=== PATIENT | male | born 1950 | race Caucasian/White ===

== ENCOUNTER → 2017-02-27 | Outpatient (CLI) | payer MEDICARE ==
--- NOTE | 2017-02-27 15:31 | Diagnostic Imaging Report ---
EXAMINATION: Right lower extremity duplex venous ultrasound. TECHNIQUE: DVT protocol. Multiple sonographic images with color Doppler and waveform interrogation were performed of the right lower extremity veins with compression and augmentation maneuvers. INDICATION: Right leg pain and swelling. FINDINGS: The right lower extremity veins from the groin to below the knee veins were examined with normal color-flow, compressibility and normal waveform demonstrated. The great saphenous vein is patent. There is a Rosa's cyst seen measuring 8.8 x 1.1 x 3.3 cm in the right popliteal fossa with suggestion of internal debris. IMPRESSION: No evidence of DVT in the right lower extremity. Rosa's cyst. Dictated by: Dictated on workstation # [id number]
== END ==
LOC: RAD 14:45
PROVIDERS: ATTEND Nurse Practitioner Family
DX: M71.21 Synovial cyst of popliteal space [Baker], right knee (principal)

== ENCOUNTER → 2017-03-13 | Outpatient (CLI) | payer OTHER, MEDICARE ==
--- NOTE | 2017-03-13 20:29 | Diagnostic Imaging Report ---
EXAMINATION: Three views of the right knee. INDICATION: Medial right knee pain. FINDINGS: There is mild joint space narrowing medially. Laterally and in the patellofemoral compartment, the joint space appears to be preserved. Minimal osteophytes at the patellofemoral compartment and medially and along the tibial spine are noted. No suprapatellar effusion is evident. There is ossification at the quadriceps insertion likely related to old injury or tendinosis. No fracture, dislocation, or radiopaque foreign body. IMPRESSION: Mild degenerative changes. Dictated by: Dictated on workstation # [id number]
== END ==
LOC: RAD 11:13
PROVIDERS: ATTEND Nurse Practitioner Family
DX: M17.11 Unilateral primary osteoarthritis, right knee (principal)
CPT/HCPCS: 73562

== ENCOUNTER → 2019-06-20 | Outpatient (CLI) | payer MEDICARE, OTHER ==
--- NOTE | 2019-06-20 13:25 | Diagnostic Imaging Report ---
PROCEDURE: US Scrotum. TECHNIQUE: Multiple real-time grayscale images were obtained over the scrotum in various projections bilaterally. INDICATION: Scrotal swelling. FINDINGS: Right testicle measures 3.9 x 1.4 x 2.3 cm and the left testicle measures 4 x 1.9 x 2.3 cm. Both testicles demonstrate homogeneous echogenicity and normal blood flow. The right epididymis is somewhat heterogeneous in appearance. Left epididymis is slightly hypervascular. Possibility of some mild epididymitis cannot be excluded. There is a small left hydrocele. There is a right varicocele. There is no left varicocele. There is some enlargement of the inguinal canal on the left with Valsalva, presumably reflecting some herniation of intraperitoneal fat. IMPRESSION: 1. Questionable mild left epididymitis. 2. Enlargement of left inguinal canal with Valsalva, suggesting some herniation of intraperitoneal fat. 3. Small left hydrocele and a right varicocele. Dictated by: Dictated on workstation # [id number]
== END ==
LOC: RAD 11:13
PROVIDERS: ATTEND Nurse Practitioner Family
DX: N43.3 Hydrocele, unspecified (principal); I86.1 Scrotal varices
CPT/HCPCS: 76870

== ENCOUNTER 2019-10-14 05:48 | Outpatient (RCR) | payer MEDICARE, OTHER ==
[~2019-10-14] VITALS: Ht 170 cm; Wt 73.6 kg
[~2019-10-14 05:48] MED LIST: ALLO100T PO; CART1TAB5 PO; IBUP-2185 PO; LISI-552 PO
== END 2019-10-14 14:21 | disposition home or self-care (01) ==
LOC: PREOP 05:48
PROVIDERS: ATTEND Surgery
DX: Z01.812 Encounter for preprocedural laboratory examination (principal); K40.90 Unilateral inguinal hernia, without obstruction or gangrene, not specified as recurrent; K42.9 Umbilical hernia without obstruction or gangrene; Z20.828 Contact with and (suspected) exposure to other viral communicable diseases
CPT/HCPCS: 87635

== ENCOUNTER 2019-10-17 09:35 | Day surgery (SDC) | payer MEDICARE, OTHER ==
--- NOTE | 2019-10-15 15:06 | HISTORY AND PHYSICAL ---
DATE OF SERVICE: DATE OF ADMISSION: 10/17/2019 PRIMARY CARE PHYSICIAN: Dr. Sylvie Byren. HISTORY OF PRESENT ILLNESS: The patient is a 69-year-old male, who has had bilateral inguinal hernias as well as umbilical hernia when we first examined him in 01/2019. At that time, he was working and could not get time off. At this time, he continues to work a job that does require heavy lifting and exertion; however, states that he will allocate 6 weeks off. Upon examination again, there is a slightly larger left inguinal hernia, which is reducible; however, tender to palpation. There is also a small right inguinal hernia and small umbilical hernia. He is otherwise eating well and having normal bowel movements. PAST MEDICAL HISTORY: Hypertension, gout, degenerative joint disease. PAST SURGICAL HISTORY: Cyst removal back . ALLERGIES: SULFA, PENICILLIN. MEDICATIONS: Lisinopril 20 mg daily, allopurinol 100 mg daily. SOCIAL HISTORY: Previous smoker, 20 pack years, quit 89. He does drink 2 mixed drinks daily. FAMILY HISTORY: Paternal grandfather, myocardial infarction. VITAL SIGNS: Blood pressure 111/70, current weight of 170 pounds at 5 feet 7 inches. REVIEW OF SYSTEMS: Well-nourished male, in no acute distress. He is not experiencing any shortness of breath or difficulty breathing. No chest pain, palpitations or diaphoresis. No nausea, vomiting, no diarrhea or constipation. No fever, chills, no recent inadvertent weight loss. All other review of systems negative. PHYSICAL EXAMINATION: CHEST: Clear. Good breath sounds bilaterally. HEART: Regular, no murmurs. EXTREMITIES: No lower extremity edema, negative Homans sign. NECK: No cervical lymphadenopathy. ABDOMEN: Soft, nontender, nondistended. There is reducible; however, symptomatic bilateral inguinal hernia as well as umbilical hernia. SKIN: Warm, dry. ASSESSMENT AND PLAN: A 69-year-old male with bilateral symptomatic inguinal hernias as well as an umbilical hernia. The natural history of hernias were explained to the patient as well as the risks and benefits of surgery. He states that he can now allocate adequate time off of work and would like to proceed with a laparoscopic bilateral inguinal hernia repair as well as an umbilical hernia repair with mesh. Job ID: [id number] DocumentID: [id number] Dictated Date: 10/08/2019 17:05:07 Building Principal Date: 10/08/2019 17:16:43 Dictated By: KARRI BRIDGES MD
[~2019-10-17] VITALS: Ht 170 cm; Wt 73.6 kg
[2019-10-17] VITALS (10 sets, daily range): BP systolic 113–137; BP diastolic 63–90
[2019-10-17] MEDS ORDERED: BUP/EPI 0.5% 1:200,000 (SENSORCAINE) 30 ML VIAL ONE (09:38)
[2019-10-17] MEDS ORDERED: CLINDAMYCIN 600 MG/50 ML IVPB 50 ML IV ONE (09:45)
--- NOTE | 2019-10-17 09:55 | Progress Note-Pre Operative ---
Pre-Operative Progress Note H&P Reviewed The H&P was reviewed, patient examined and no changes noted. Date Seen by Provider: Oct 17, 2019 Time Seen by Provider: 09:55 Date H&P Reviewed: Oct 17, 2019 Time H&P Reviewed: 09:50 Pre-Operative Diagnosis: Symptomatic Bilateral inguinal and umbilical hernia LYNDSEY MCCORMACK APRN Oct 17, 2019 09:55
[2019-10-17] MEDS ORDERED: DEXAMETHASONE 10 MG/ML (DECADRON) 1 ML VIAL ONE (09:58)
[2019-10-17] MEDS ORDERED: HYDR-4227 PO (09:58)
[2019-10-17] MEDS ORDERED: ROCURONIUM 10 MG/ML 5 ML SYRINGE IV ONE (09:58)
[2019-10-17] MEDS ORDERED: ONDANSETRON 4 MG/2 ML (SDV) Z0FRAN ONE (09:58)
[2019-10-17] MEDS ORDERED: proPOfol 200 MG/20 ML (DIPRIVAN) VIAL IV ONE (09:58)
[2019-10-17] MEDS ORDERED: LIDOCAINE PF 2% 5 ML (XYLOCAINE) VIAL ONE (09:58)
[2019-10-17] MEDS ORDERED: fentaNYL INJECTION 100 MCG/2 ML AMP ONE (09:58)
[2019-10-17] MEDS ORDERED: MIDAZOLAM 2 MG/2 ML (VERSED) VIAL ONE (09:59)
--- NOTE | 2019-10-17 09:59 | Discharge Inst-Surgical ---
D/C Lap Instructions-KIDO Reconcile Patient Problems Problems Reviewed?: Yes New, Converted, or Re-Newed RX: RX on Chart Follow Up Appt in 2 weeks Activity as tolerated No driving for 24 hours No driving while on pain medications Incentive Spirometry use every 2 hours while awake Regular Diet Symptoms to Report: Fever over 101 degree F, Nausea/Vomiting Infection Signs and Symptoms to report: Increased redness, Foul odor of wound, Increased drainage Bathing instructions: May shower Operative Area Clean/Dry; Keep incision clean/dry If any problems/questions: Contact your physician or go to Emergency Room LYNDSEY MCCORMACK APRN Oct 17, 2019 09:59
[2019-10-17] MEDS ORDERED: GLYCOPYRROLATE 0.2 MG/ML (ROBINUL) 2 ML VIAL ONE (10:00)
[2019-10-17] MEDS ORDERED: ONDANSETRON 4 MG/2 ML (SDV) Z0FRAN IVP PRN ×2 (10:00→12:30)
[2019-10-17] MEDS ORDERED: morphine INJ 10 MG/ML 1ML (SYR OR VIAL) IVP PRN (10:00)
[2019-10-17] MEDS ORDERED: HYDROcodone/APAP 5 MG/325 MG (LORTAB) TAB PO ONE (10:00)
[2019-10-17] MEDS ORDERED: ACETAMINOPHEN 325 MG TABLET PO PRN (10:00)
[2019-10-17] MEDS ORDERED: SEVOFLURANE (ULTANE) 15 ML INHAL SOLN ONE ×2 (10:00→12:13)
[2019-10-17] MEDS ORDERED: NEOSTIGMINE 3 MG/3 ML VIAL ONE (10:00)
[2019-10-17] MEDS: LACTATED RINGERS 1,000 ML IV PRN ×2 (10:07→11:25)
[2019-10-17 10:15] LABS: BASOPHILS % (AUTO) 1 % (0-10); EOSINOPHILS # (AUTO) 0.2 10^3/uL (0.0-0.3); EOSINOPHILS % (AUTO) 3 % (0-10); HEMATOCRIT 44 % (40-54); HEMOGLOBIN 14.6 G/DL (13.3-17.7); LYMPHOCYTES # (AUTO) 2.3 X 10^3 (1.0-4.0); LYMPHOCYTES % (AUTO) 38 % (12-44); MEAN CORPUSCULAR HEMOGLOBIN 32 PG (25-34); MEAN CORPUSCULAR HGB CONC 33 G/DL (32-36); MEAN CORPUSCULAR VOLUME 97 FL (80-99); MEAN PLATELET VOLUME 9.7 FL (7.4-10.4); MONOCYTES # (AUTO) 0.6 X 10^3 (0.0-1.0); MONOCYTES % (AUTO) 10 % (0-12); NEUTROPHILS # (AUTO) 2.9 X 10^3 (1.8-7.8); NEUTROPHILS % (AUTO) 49 % (42-75); PLATELET COUNT 198 10^3/uL (130-400); RED CELL DISTRIBUTION WIDTH 12.9 % (10.0-14.5)
--- OUTSIDE RECORDS SUMMARY | 2019-10-17 10:29 | XMS REPORT | CCD ---
Author Author Renan Byrne D.O. Organization [facility] Address [address] [place] [address] Phone Care Team Providers Care Welder Assistant Name Role Phone Sylvie Byrne D.O., PP Unavailable CCM Unavailable Summary Purpose Interface Exchange Insurance Providers Payer name Policy type / Coverage type Covered constitution party ID Effective Begin Date Effective End Date WPS MEDICARE PART B [place] Medicare Part B [id number] Unknown [employer] Medicare Part B [id number] Unknown Family History Family History data not found Social History Social History Element Codes Description Effective Dates Tobacco history SNOMED CT: 780422494 Nonsmoker 12/02/2010 Allergies, Adverse Reactions, Alerts Substance Reaction Codes Entered Date Inactivated Date Status MACROLIDE ANTIBIOTICS rash Unknown 04/19/2010 No Inactive Da te Active PENICILLINS Unknown 09/01/2009 No Inactive Date Active SULFA (SULFONAMIDES) _ Unknown 09/01/2009 No Inactive Wolf e Active * NO KNOWN ENVIRONMENTAL ALLERGIES Unknown 09/01/2009 N o Inactive Date Active * NO KNOWN FOOD ALLERGIES Unknown 09/01/2009 No Inactiv e Date Active Problems Condition Codes Effective Dates Condition Status Enlarged testicle ICD-9: 608.89 ICD-10: N50.89 06/20/2019 Active Polyuria ICD-9: 788.42 ICD-10: R35.8 06/20/2019 Active Acute contact dermatitis ICD-9: 692.9 ICD-10: L25.9 05/17/2019 Active Acute sinusitis ICD-9: 461.9 ICD-10: J01.90 05/17/2019 Active Abscess of chest wall ICD-9: 682.2 ICD-10: L02.213 01/23/2019 Active Acute gastritis without bleeding ICD-9: 535.00 ICD-10: K29.00 01/18/2018 Active Essential (primary) hypertension ICD-9: 401.9 ICD-10: I10 12/11/2013 Active Hyperlipidemia, unspecified ICD-9: 272.4 ICD-10: E78.5 12/11/2013 Active Idiopathic gout, unspecified site ICD-9: 274.9 ICD-10: M10.00 03/29/2017 Active Sebaceous cyst ICD-9: 706.2 ICD-10: L72.3 02/27/2017 Active Weakness ICD-9: 780.79 ICD-10: R53.1 03/29/2017 Active Contact with and (suspected) exposure to other viral c ommunicable diseases ICD- 9: V01.79 ICD-10: Z20.828 03/15/2017 Active Pain in right knee ICD-9: 719.46 ICD-10: M25.561 03/13/2017 Active Pain in right leg ICD-9: 729.5 ICD-10: M79.604 02/27/2017 Active Local infection of the skin and subcutaneous tissue, u nspecified ICD-9: 686.9 ICD-10: L08.9 03/30/2015 Active Colon polyps ICD-9: 211.3 05/02/2013 Active HEMATURIA NOS ICD-9: 599.70 01/06/2015 Active History of chest pain ICD-9: V13.89 01/06/2015 Active Right flank pain ICD-9: 789.09 01/06/2015 Active COUGH ICD-9: 786.2 04/15/2014 Active Rectal itching ICD-9: 698.0 04/15/2014 Active GOUT ICD-9: 274.9 12/11/2013 Active HYPERLIPIDEMIA NEC/NOS ICD-9: 272.4 12/11/2013 Active HYPERTENSION ICD-9: 401.9 12/11/2013 Active ROUTINE MEDICAL EXAM ICD-9: V70.0 12/11/2013 Active Shingles ICD-9: 053.9 12/10/2013 Active Stress reaction ICD-9: 308.9 05/02/2013 Active URINARY TRACT INFECTION ICD-9: 599.0 01/02/2013 Active CELLULITIS OF TRUNK ICD-9: 682.2 10/10/2011 Active SPRAIN SHOULDER/ARM ICD-9: 840.9 10/10/2011 Active DIARRHEA ICD-9: 787.91 08/12/2011 Active Abnormal results of thyroid function studies ICD-9: 794.5 Active ENCNTR LONG-RX USE NEC ICD-9: V58.69 07/28/2011 Active Positive antinuclear antibody ICD-9: 795.79 07/28/2011 Ac tive Joint pain ICD-9: 719.40 05/24/2011 Active Rash ICD-9: 782.1 05/24/2011 Active SINUSITIS, ACUTE ICD-9: 461.9 04/15/2011 Active Clavicle fracture ICD-9: 810.00 01/13/2011 Active Clavicle pain ICD-9: 719.41 12/23/2010 Active Arm pain ICD-9: 729.5 12/15/2010 Active Neck pain ICD-9: 723.1 12/15/2010 Active SPASM OF MUSCLE ICD-9: 728.85 12/15/2010 Active MALAISE AND FATIGUE ICD-9: 780.79 12/02/2010 Active Allergic reaction caused by a drug ICD-9: 995.27 04/19/2010 Active DYSPHAGIA NEC ICD-9: 787.29 04/14/2010 Active GERD ICD-9: 530.81 04/14/2010 Active PHARYNGITIS, ACUTE ICD-9: 462 04/14/2010 Active Gastroesophageal reflux disease Unknown 09/01/2009 Active Gout Unknown 09/01/2009 Active Hypertension Unknown 09/01/2009 Active HYPOTENSION ICD-9: 458.9 09/01/2009 Active Thoracic back pain ICD-9: 724.1 09/01/2009 Active Medications Medication Codes Instructions Start Date Stop Date Status Fill Instructions hydroxyzine HCl 25 mg tablet RxNorm: 870600 1 Tablet(s) Oral every night at bedtime 06/21/2019 10/19/2019 Active Cipro 500 mg tablet RxNorm: 321640 1 Tablet(s) Oral two times a day 06/20/2019 06/28/2019 Active Cipro 500 mg tablet RxNorm: 975598 1 Tablet(s) Oral two times a day 06/20/2019 06/19/2019 Inactive hydroxyzine HCl 25 mg tablet RxNorm: 733545 1 Tablet(s) Oral Q8 H as needed 06/14/2019 06/14/2019 Inactive Cipro 500 mg tablet RxNorm: 034830 1 Tablet(s) Oral two times a day 06/14/2019 06/19/2019 Inactive Cipro 500 mg tablet RxNorm: 707404 1 Tablet(s) Oral two times a day 06/14/2019 06/13/2019 Inactive hydroxyzine HCl 25 mg tablet RxNorm: 889161 1 Tablet(s) Oral Q8 H as needed 06/14/2019 06/13/2019 Inactive prednisone 20 mg tablet RxNorm: 539027 1 Tablet(s) Oral two latonia es a day 05/31/2019 06/05/2019 Inactive Elimite 5 % topical cream RxNorm: 528577 Application To pical QPM from head to toe 05/17/2019 07/16/2019 Active Medrol (Nicholas) 4 mg tablets in a dose pack RxNorm: 392979 6 Tablet(s) Oral QD --then as directed 05/17/2019 05/23/2019 Inactive Osteo Bi-Flex 250 mg-200 mg tablet RxNorm: 398399 2 Tablet(s) O ral QD 01/23/2019 No Stop Date Active clindamycin HCl 300 mg capsule RxNorm: 930918 2 Capsule (s) Oral three times a day 01/23/2019 01/30/2019 Inactive Flagyl 500 mg tablet RxNorm: 519358 1 Tablet(s) PO BID 10/31/2018 Inactive lisinopril 20 mg tablet RxNorm: 337359 1 Tablet(s) PO QD for bl ood pressure 09/13/2018 12/11/2018 Inactive allopurinol 100 mg tablet RxNorm: 993416 1 Tablet(s) PO QD 09/14/19 19 12/11/2018 Inactive Flagyl 500 mg tablet RxNorm: 251600 1 Tablet(s) PO BID 01/18/2018 Inactive Cipro 250 mg tablet RxNorm: 302097 1 Tablet(s) PO BID 01/18/201801/08 Inactive lisinopril 20 mg tablet RxNorm: 419979 1 Tablet(s) PO QD for bl ood pressure 11/06/2017 02/03/2018 Inactive allopurinol 100 mg tablet RxNorm: 986048 1 Tablet(s) PO QD 11/07/19 18 02/03/2018 Inactive allopurinol 100 mg tablet RxNorm: 250121 1 Tablet(s) PO QD 04/11/19 18 10/07/2017 Inactive lisinopril 20 mg tablet RxNorm: 843096 1 Tablet(s) PO QD for bl ood pressure 04/07/2017 11/05/2017 Inactive prednisone 20 mg tablet RxNorm: 877517 2 Tablet(s) PO QD 03/15/2017 1 05/18/2016 Inactive tramadol 50 mg tablet RxNorm: 651404 1-2 Tablet(s) PO TID as needed 03/13/2017 08/06/2017 Inactive Medrol (Nicholas) 4 mg tablets in a dose pack RxNorm: 379277 Tablet(s) PO As Directed 02/28/2017 08/01/2017 Inactive allopurinol 100 mg tablet RxNorm: 410607 1 Tablet(s) PO QD 04/11/19 17 04/11/2017 Inactive lisinopril 20 mg tablet RxNorm: 839937 1 Tablet(s) PO QD for bl ood pressure 04/11/2016 04/07/2017 Inactive pravastatin 20 mg tablet RxNorm: 198113 1 Tablet(s) PO QD 01/13/2016 02/26/2017 Inactive pravastatin 20 mg tablet RxNorm: 520843 TAKE 1 TABLET DAILY 016 01/13/2016 Inactive pravastatin 40 mg tablet RxNorm: 626187 1 Tablet(s) PO QD 03/31/2015 03/31/2015 Inactive pravastatin 20 mg tablet RxNorm: 127425 1 Tablet(s) PO QD 03/31/2015 06/28/2015 Inactive doxycycline hyclate 100 mg capsule RxNorm: 5329668 1 Capsule(s) PO BID 03/31/2015 04/09/2015 Inactive mupirocin 2 % topical ointment RxNorm: 337508 Apply TOP BID to affected lesions 03/31/2015 08/01/2017 Inactive pravastatin 40 mg tablet RxNorm: 281938 1 Tablet(s) PO QD 01/08/2015 03/30/2015 Inactive lisinopril 20 mg tablet RxNorm: 731710 1 Tablet(s) PO QD for bl ood pressure 01/07/2015 12/31/2015 Inactive allopurinol 100 mg tablet RxNorm: 855397 1 Tablet(s) PO QD 01/08/20 04/10/2016 Inactive ciprofloxacin 500 mg tablet RxNorm: 616737 1 Tablet(s) PO BID 01/0701/13/2015 Inactive doxycycline hyclate 100 mg capsule RxNorm: 7230053 1 Capsule(s) PO BID 04/15/2014 04/24/2014 Inactive fluoxetine 10 mg capsule RxNorm: 398127 1 Capsule(s) PO QAM 014 04/14/2014 Inactive lisinopril 20 mg tablet RxNorm: 655905 1 Tablet(s) PO QD for bl ood pressure 05/02/2013 04/26/2014 Inactive Cipro 500 mg tablet RxNorm: 432405 1 Tablet(s) PO BID 01/02/201312/10 Inactive Cipro 500 mg tablet RxNorm: 210542 1 Tablet(s) PO BID 01/02/201304/2012 Inactive doxycycline hyclate 100 mg Cap RxNorm: 548875 1 Capsule(s) PO BID 0 10/10/2011 10/19/2011 Inactive Culturelle 10 billion cell Cap RxNorm: 262705 1 Capsule(s) PO BID 0 08/12/2011 09/10/2011 Inactive Colcrys 0.6 mg Tab RxNorm: 146146 1 Tablet(s) PO BID 08/04/201111/30 Inactive allopurinol 100 mg Tab RxNorm: 694656 1 Tablet(s) PO BID 07/13/2011 0 08/03/2011 Inactive clotrimazole-betamethasone 1 %-0.05 % Topical Cream RxNorm: 402487 1 Application TOP BID 06/10/2011 06/23/2011 Inactive clotrimazole-betamethasone 1 %-0.05 % Topical Cream RxNorm: 597336 1 Application TOP BID 05/24/2011 06/06/2011 Inactive Colcrys 0.6 mg Tab RxNorm: 509243 1 Tablet(s) PO BID 05/24/201108/02 Inactive cefdinir 300 mg Cap RxNorm: 781353 1 Capsule(s) PO BID 04/15/2011 Inactive Daypro 600 mg Tab RxNorm: 385855 1 Tablet(s) PO BID 12/15/20102010 Inactive for pain Medrol (Nicholas) 4 mg Tabs in a Dose Pack RxNorm: 278921 Tablet(s) PO 0 12/09/2010 12/15/2010 Inactive as directed Colcrys 0.6 mg Tab RxNorm: 332928 1 Tablet(s) PO BID 12/06/201001/04 Inactive lisinopril-hydrochlorothiazide 20 mg-12.5 mg Tab RxNorm: 197 886 1 Tablet(s) PO QAM 12/02/2010 01/30/2011 Inactive ranitidine 150 mg tablet RxNorm: 2726496 1 Tablet(s) PO BID Pt will phone before filing this script. 04/14/2010 05/13/2010 Inactive allopurinol 100 mg Tab RxNorm: 195628 1 Tablet(s) PO BID 09/16/2009 0 11/14/2009 Inactive lisinopril-hydrochlorothiazide 20 mg-12.5 mg Tab RxNorm: 197 886 1 Tablet(s) PO QAM 06/23/2009 08/31/2009 Inactive ibuprofen 200 mg tablet RxNorm: 629741 4 Tablet(s) PO QAM No Start Da te Active Zithromax Z-Nicholas 250 mg Tab RxNorm: 313162 Tablet(s) PO as direc tenzin No Start Date 01/12/2011 Inactive Ultram Oral RxNorm: Oral No Start Date 01/01/2013 Inactive allopurinol 100 mg tablet RxNorm: 486901 1 Tablet(s) PO QD No Start Date 01/06/2015 Inactive pravastatin 40 mg tablet RxNorm: 216762 1 Tablet(s) PO QD No Start Date 01/07/2015 Inactive Naprosyn 500 mg tablet RxNorm: 342792 1 Tablet(s) PO BID No Start D ate 05/01/2013 Inactive azithromycin 250 mg tablet RxNorm: 626468 2 Tablet(s) P O QD take 2 tablets (500 mg) by oral route once daily for 1 day then 1 tablet (250 mg) by oral route once daily for 4 days No Start Date 01/12/2011 Inactive allopurinol 300 mg Tab RxNorm: 494795 1 Tablet(s) PO QD No Start Da te 01/01/2013 Inactive Colcrys 0.6 mg tablet RxNorm: 781683 1 Tablet(s) PO BID No Start Da te 05/01/2013 Inactive Medrol (Nicholas) 4 mg tablets in a dose pack RxNorm: 343369 Tablet(s) PO As Directed No Start Date 02/27/2017 Inactive hydrocodone 5 mg-acetaminophen 325 mg tablet RxNorm: 884674 1 Tablet(s) PO Q4H as needed for pain No Start Date 12/09/2013 Inactive ranitidine 150 mg Tab RxNorm: 7246802 1 Tablet(s) PO BID No Start D ate 04/13/2010 Inactive Allopurinol 100 mg Tab RxNorm: 804968 1 Tablet(s) PO BID No Start D ate 09/15/2009 Inactive coenzyme Q10 200 mg capsule RxNorm: 513874 1 Capsule(s) PO QD No St art Date 03/30/2015 Inactive Mobic 7.5 mg tablet RxNorm: 412208 1 Tablet(s) PO QD No Start Date Inactive Osteo Bi-Flex (5-Loxin) 1,500 mg-400 unit-100 mg tablet RxNo rm: 1 Tablet(s) PO BID No Start Date 03/30/2015 Inactive hydrocodone-acetaminophen 7.5 mg-325 mg Tab RxNorm: 484721 1-2 Tablet(s) PO Q4-6H No Start Date 08/03/2011 Inactive as needed for pa in Neurontin 300 mg capsule RxNorm: 575307 1 Capsule(s) PO QD No Start Date 12/09/2013 Inactive Medrol (Nicholas) 4 mg Tabs in a Dose Pack RxNorm: 563950 Tablet(s) PO N o Start Date 12/08/2010 Inactive as directed Vitamin D2 1,000 unit capsule RxNorm: 426085 1 Capsule(s) PO QD No Start Date 03/30/2015 Inactive Flexeril 10 mg Tab RxNorm: 849259 1 Tablet(s) PO TID No Start Date Inactive for spasm Medication Administered No Medication Administered data Immunizations No Immunization data Results Observation Observation Code Item Item Code Result Date S ervice Location C DIFF MOL 8161214 C Diff Mol Int Negative 11/02/2018 Unk nown C Diff An 03193493 C Diff Analyzer Indeterminate 9 Unknown GFR CALC 0871561 GFR Non Afr Amr >60 mL/min 11/01/2018 Un known GFR CALC 7911374 GFR Afr Amr >60 mL/min 11/01/[address] LDL HDL CHOLESTEROL 46 mg/dL 11/01/[address] LDL [id number] Cholesterol 198 mg/dL 11/01/[address] LDL Triglyceride 104 mg/dL 11/01/[address] LDL LDL Direct 158 mg/dL 11/01/[address] LDL 3612109 NON-HDL Chol 152 mg/dL 11/01/2018 Unkno wn THYROID STIMULATING HORMONE 93276 TSH 1.276 uIU/mL 11/01/2018 Unknown COMPREHENSIVE METABOLIC 64113 AST 22 U/L 2018 Unknown COMPREHENSIVE METABOLIC 43960 ALT 17 U/L 2018 Unknown COMPREHENSIVE METABOLIC 34901 BUN 16 mg/dL 2018 Unknown COMPREHENSIVE METABOLIC 11140 ALBUMIN 4.3 g/dL 2018 Unknown COMPREHENSIVE METABOLIC 68004 CHLORIDE 103 mmol/L 11/01 Unknown COMPREHENSIVE METABOLIC 99912 Bili Total 0.9 mg/dL 11/01 Unknown COMPREHENSIVE METABOLIC 76068 ALK PHOS 62 U/L 2018 Unknown COMPREHENSIVE METABOLIC 69814 SODIUM 138 mmol/L 11/01 Unknown COMPREHENSIVE METABOLIC 32225 CREATININE 0.87 mg/dL 10/09 Unknown COMPREHENSIVE METABOLIC 33323 CALCIUM 9.2 mg/dL 2018 Unknown COMPREHENSIVE METABOLIC 55954 POTASSIUM 4.1 mmol/L 11/01 Unknown COMPREHENSIVE METABOLIC 81832 Total Protein 7.2 g/dL Unknown COMPREHENSIVE METABOLIC 35251 Glucose 81 mg/dL 2018 Unknown COMPREHENSIVE METABOLIC 46988 Bicarbonate 18 mmol/L 10/09 Unknown COMPREHENSIVE METABOLIC 36340 AGAP 17 mmol/L 2018 Unknown COMPLETE BLOOD COUNT [id number] WBC 8.8 10e9/L 11/02/19 19 Unknown COMPLETE BLOOD COUNT [id number] RBC 4.54 10e12/L 2018 Unknown COMPLETE BLOOD COUNT [id number] HEMOGLOBIN 14.4 g/dL 11/02/19 19 Unknown COMPLETE BLOOD COUNT [id number] HEMATOCRIT 44.0 % 11/02/19 19 Unknown COMPLETE BLOOD COUNT [id number] MCV 96.9 fL 9 Unknown COMPLETE BLOOD COUNT [id number] MCH 31.7 pg 9 Unknown COMPLETE BLOOD COUNT 5937925 MCHC 32.7 g/dL 9 Unknown COMPLETE BLOOD COUNT [id number] PLATELET COUNT 239 10e9/L Unknown COMPLETE BLOOD COUNT 9842233 Mean Plt Volume 10.5 fL Unknown COMPLETE BLOOD COUNT [id number] NRBC Absolute 0.00 10e9/L Unknown COMPLETE BLOOD COUNT 3896262 Neut Auto 65.2 % 9 Unknown COMPLETE BLOOD COUNT 5249551 NRBC/100 WBC 0.0 2018 Unknown COMPLETE BLOOD COUNT [id number] Lymph Auto 23.1 % 11/02/19 19 Unknown COMPLETE BLOOD COUNT 5852015 Kendall Auto 9.5 % 9 Unknown COMPLETE BLOOD COUNT 8243069 RDW 12.2 % 9 Unknown COMPLETE BLOOD COUNT [id number] Eos Auto 1.7 % 9 Unknown COMPLETE BLOOD COUNT [id number] Baso Auto 0.3 % 9 Unknown COMPLETE BLOOD COUNT [id number] Neutrophil Abs 5.73 10e9/L Unknown COMPLETE BLOOD COUNT [id number] Imm Gran Auto 0.2 % 11/01 Unknown COMPLETE BLOOD COUNT [id number] Lymphocyte Abs 2.03 10e9/L Unknown COMPLETE BLOOD COUNT [id number] Monocyte Abs 0.84 10e9/L 10/09 Unknown COMPLETE BLOOD COUNT [id number] Eosinophil Abs 0.15 10e9/L Unknown COMPLETE BLOOD COUNT [id number] RDW-SD 43.4 fL 9 Unknown COMPLETE BLOOD COUNT [id number] Basophil Abs 0.03 10e9/L 10/09 Unknown COMPLETE BLOOD COUNT [id number] Imm Gran Abs 0.02 10e9/L 10/09 Unknown COMPREHENSIVE METABOLIC 92881 AST 17 U/L 2016 Unknown COMPREHENSIVE METABOLIC 02069 ALT 16 U/L 2016 Unknown COMPREHENSIVE METABOLIC 06764 BUN 15 mg/dL 2016 Unknown COMPREHENSIVE METABOLIC 15481 ALBUMIN 4.4 g/dL 2016 Unknown COMPREHENSIVE METABOLIC 74574 CHLORIDE 104 mmol/L 03/29 Unknown COMPREHENSIVE METABOLIC 18003 Bili Total 0.5 mg/dL 03/29 Unknown COMPREHENSIVE METABOLIC 54566 ALK PHOS 56 U/L 2016 Unknown COMPREHENSIVE METABOLIC 20838 SODIUM 139 mmol/L 03/29 Unknown COMPREHENSIVE METABOLIC 36934 CREATININE 0.88 mg/dL 03/11 Unknown COMPREHENSIVE METABOLIC 33667 CALCIUM 9.8 mg/dL 2016 Unknown COMPREHENSIVE METABOLIC 05137 POTASSIUM 4.2 mmol/L 03/29 Unknown COMPREHENSIVE METABOLIC 04400 Total Protein 6.8 g/dL Unknown COMPREHENSIVE METABOLIC 54538 Glucose 100 mg/dL 2016 Unknown COMPREHENSIVE METABOLIC 62392 Bicarbonate 30 mmol/L 03/11 Unknown COMPREHENSIVE METABOLIC 18103 AGAP 5 mmol/L 2016 Unknown THYROID STIMULATING HORMONE 74398 TSH 1.077 uIU/mL 03/29/2017 Unknown URIC ACID 65310 URIC ACID 5.2 mg/dL 03/29/2017 Unknown FREE T4 41662 T4 Free 1.04 ng/dL 03/29/2017 Unknown ERYTHROCYTE SEDIMENTATION RATE 73044 Sed Rate 21 mm/hr 03/29/2017 Unknown COMPLETE BLOOD COUNT [id number] WBC 5.9 10e9/L 03/29/20 17 Unknown COMPLETE BLOOD COUNT [id number] RBC 4.52 10e12/L 2016 Unknown COMPLETE BLOOD COUNT [id number] HEMOGLOBIN 14.6 g/dL 03/29/20 17 Unknown COMPLETE BLOOD COUNT 8956875 HEMATOCRIT 44.7 % 03/29/20 17 Unknown COMPLETE BLOOD COUNT 9744227 MCV 98.9 fL 7 Unknown COMPLETE BLOOD COUNT 9984418 MCH 32.3 pg 7 Unknown COMPLETE BLOOD COUNT 1585546 MCHC 32.7 g/dL 7 Unknown COMPLETE BLOOD COUNT [id number] PLATELET COUNT 262 10e9/L Unknown COMPLETE BLOOD COUNT 2381772 Mean Plt Volume 10.1 fL Unknown COMPLETE BLOOD COUNT 5075771 Neut Auto 44.2 % 7 Unknown COMPLETE BLOOD COUNT 8737071 Lymph Auto 41.5 % 03/29/20 17 Unknown COMPLETE BLOOD COUNT 3426349 Kendall Auto 11.2 % 7 Unknown COMPLETE BLOOD COUNT 0988181 RDW 12.3 % 7 Unknown COMPLETE BLOOD COUNT 6404037 Eos Auto 2.6 % 7 Unknown COMPLETE BLOOD COUNT [id number] Baso Auto 0.5 % 7 Unknown COMPLETE BLOOD COUNT 3235825 Neutrophil Abs 2.61 10e9/L Unknown COMPLETE BLOOD COUNT 5910071 Lymphocyte Abs 2.45 10e9/L Unknown COMPLETE BLOOD COUNT [id number] Monocyte Abs 0.66 10e9/L 03/11 Unknown COMPLETE BLOOD COUNT [id number] Eosinophil Abs 0.15 10e9/L Unknown COMPLETE BLOOD COUNT 4580254 RDW-SD 43.7 fL 7 Unknown COMPLETE BLOOD COUNT [id number] Basophil Abs 0.03 10e9/L 03/11 Unknown LIPID GROUP 73972 Cholesterol 248 mg/dL 03/29/2017 Unkno wn LIPID GROUP 40189 Triglyceride 87 mg/dL 03/29/2017 Unkn own [facility] 72824 HDL CHOLESTEROL 49 mg/dL 03/29/2017 U nknown [facility] 40937 Chol/HDL Ratio 5.06 ratio 03/29/2017 U nknown L[facility] 02617 NON-HDL Chol 199 mg/dL 03/29/2017 Unkn own [facility] 27868 LDL Cholesterol 182 mg/dL 03/29/2017 U nknown GFR CALC 4502675 GFR Non Afr Amr >60 mL/min 03/29/2017 Un known GFR CALC 9174324 GFR Afr Amr >60 mL/min 03/29/2017 Unknow n HIV AG/AB 7275874 HIV Ag/Ab Non-Reactive 03/15/2017 Unkno wn VIRAL HEPATITIS PROFILE #2 90780 Hep A IgM Non-Reactive 03/15/2017 Unknown VIRAL HEPATITIS PROFILE #2 26737 Hep B Core IgM Non-Reac tive 03/15/2017 Unknown VIRAL HEPATITIS PROFILE #2 28280 Hepatitis C Ab Non-Reac tive 03/15/2017 Unknown VIRAL HEPATITIS PROFILE #2 95982 Hep Bs Ag Non-Reactive 03/15/2017 Unknown COMPREHENSIVE METABOLIC 34736 AST 23 U/L 2014 Unknown COMPREHENSIVE METABOLIC 07431 ALT 21 IU/L 2014 Unknown COMPREHENSIVE METABOLIC 95762 BUN 13 MG/DL 2014 Unknown COMPREHENSIVE METABOLIC 03723 ALBUMIN 4.3 GM/DL 2014 Unknown COMPREHENSIVE METABOLIC 36797 CHLORIDE 105 MMOL/L 01/07 Unknown COMPREHENSIVE METABOLIC 43277 BILI TOT 0.7 MG/DL 2014 Unknown COMPREHENSIVE METABOLIC 65736 ALK PHOS 51 U/L 2014 Unknown COMPREHENSIVE METABOLIC 93110 SODIUM 139 MMOL/L 01/07 Unknown COMPREHENSIVE METABOLIC 10092 CREATININE 0.85 MG/DL 12/11 Unknown COMPREHENSIVE METABOLIC 11935 CALCIUM 9.5 MG/DL 2014 Unknown COMPREHENSIVE METABOLIC 98928 POTASSIUM 4.4 MMOL/L 01/07 Unknown COMPREHENSIVE METABOLIC 55450 PROT TOT 6.7 GM/DL 2014 Unknown COMPREHENSIVE METABOLIC 80636 Glucose 100 MG/DL 2014 Unknown COMPREHENSIVE METABOLIC 30379 BICARB 27 MMOL/L 2014 Unknown COMPREHENSIVE METABOLIC 21911 ANION GAP 7 MEQ/L 2014 Unknown THYROID STIMULATING HORMONE 90653 TSH 0.900 uIU/ML 01/07/2015 Unknown COMPLETE BLOOD COUNT 7909918 WBC 4.9 10e9/L 01/08/20 15 Unknown COMPLETE BLOOD COUNT 9872561 RBC 4.71 10e12/L 2014 Unknown COMPLETE BLOOD COUNT 4090550 HGB 15.3 g/dL 5 Unknown COMPLETE BLOOD COUNT 6813225 HCT DET 46.1 % 5 Unknown COMPLETE BLOOD COUNT 5735248 MCV 97.9 fL 5 Unknown COMPLETE BLOOD COUNT 9670994 MCH 32.5 pg 5 Unknown COMPLETE BLOOD COUNT 0316951 MCHC 33.2 g/dL 5 Unknown COMPLETE BLOOD COUNT 3307274 PLT 227 10e9/L 01/08/20 15 Unknown COMPLETE BLOOD COUNT 9243751 MPV 10.9 fL 5 Unknown COMPLETE BLOOD COUNT 9833255 VERONIQUE % 53.0 % 5 Unknown COMPLETE BLOOD COUNT 4288148 LY % 35.8 % 5 Unknown COMPLETE BLOOD COUNT 4836967 MON % 8.6 % 5 Unknown COMPLETE BLOOD COUNT 2743394 EOS % 2.2 % 5 Unknown COMPLETE BLOOD COUNT 4592099 BASO % 0.4 % 5 Unknown COMPLETE BLOOD COUNT 2717867 RDW 12.9 % 5 Unknown COMPLETE BLOOD COUNT [id number] ABS VERONIQUE 2.60 10e9/L 015 Unknown COMPLETE BLOOD COUNT 7490761 ABS LYMPH 1.75 10e9/L 015 Unknown COMPLETE BLOOD COUNT [id number] ABS MONO 0.42 10e9/L 015 Unknown COMPLETE BLOOD COUNT [id number] ABS EOS 0.11 10e9/L 015 Unknown COMPLETE BLOOD COUNT 7661447 ABS BASO 0.02 10e9/L 015 Unknown COMPLETE BLOOD COUNT 4885729 RDW-SD 45.7 fL 5 Unknown URIC ACID 18463 URIC ACID 6.7 MG/DL 01/07/2015 Unknown LIPID GROUP 90969 HDL TEST 52 MG/DL 01/07/2015 Unknown [facility] 48795 TRIG 158 MG/DL 01/07/2015 Unknown [facility] 04993 TEST LDL 157 MG/DL 01/07/2015 Unknown [facility] 53076 CHOL 241 MG/DL 01/07/2015 Unknown [facility] 35358 RCHOL/HDL 4.63 RATIO 01/07/2015 Unknow n [facility] 39204 NON-HDL CH 189 MG/DL 01/07/2015 Unknow n GFR CALC 5388777 GFR AA >60 ML/MIN 01/07/2015 Unknown GFR CALC 0476014 GFR NON-AA >60 ML/MIN 01/07/2015 Unknown PSA EQUIMOLAR JONATAN 22312 PSA EQ 2.18 NG/ML 5 Unknown FREE T4 09601 FREE T4 1.04 NG/DL 01/07/2015 Unknown GFR CALC 6860737 GFR AA >60 ML/MIN 12/11/2013 Unknown GFR CALC 3846524 GFR NON-AA >60 ML/MIN 12/11/2013 Unknown LIPID GROUP 52032 HDL TEST 54 MG/DL 12/11/2013 Unknown LIP[facility] GROUP 60517 TRIG 81 MG/DL 12/11/2013 Unknown L[facility] GROUP 10168 TEST LDL 185 MG/DL 12/11/2013 Unknown LIPID GROUP 18024 CHOL 255 MG/DL 12/11/2013 Unknown LIPID GROUP 27499 RCHOL/HDL 4.72 RATIO 12/11/2013 Unknow n LIP[facility] GROUP 67484 NON-HDL CH 201 MG/DL 12/11/2013 Unknow n URIC ACID 87191 URIC ACID 7.1 MG/DL 12/11/2013 Unknown PSA EQUIMOLAR JONATAN 69532 PSA EQ 3.80 NG/ML 4 Unknown COMPLETE BLOOD COUNT 3872823 WBC 5.9 10e9/L 12/12/19 14 Unknown COMPLETE BLOOD COUNT 2723356 RBC 4.40 10e12/L 2013 Unknown COMPLETE BLOOD COUNT 4737171 HGB 14.5 g/dL 4 Unknown COMPLETE BLOOD COUNT 8257108 HCT DET 43.6 % 4 Unknown COMPLETE BLOOD COUNT 2709921 MCV 99.1 fL 4 Unknown COMPLETE BLOOD COUNT 1553887 MCH 33.0 pg 4 Unknown COMPLETE BLOOD COUNT 4041679 MCHC 33.3 g/dL 4 Unknown COMPLETE BLOOD COUNT 5194075 PLT 289 10e9/L 12/12/19 14 Unknown COMPLETE BLOOD COUNT 1792724 MPV 10.2 fL 4 Unknown COMPLETE BLOOD COUNT 6248853 VERONIQUE % 47.9 % 4 Unknown COMPLETE BLOOD COUNT 4692177 LY % 40.6 % 4 Unknown COMPLETE BLOOD COUNT 6295769 MON % 8.8 % 4 Unknown COMPLETE BLOOD COUNT 8679478 EOS % 2.2 % 4 Unknown COMPLETE BLOOD COUNT 4174625 BASO % 0.5 % 4 Unknown COMPLETE BLOOD COUNT 6599491 RDW 12.9 % 4 Unknown COMPLETE BLOOD COUNT 4184400 ABS VERONIQUE 2.83 10e9/L 014 Unknown COMPLETE BLOOD COUNT [id number] ABS LYMPH 2.40 10e9/L 014 Unknown COMPLETE BLOOD COUNT [id number] ABS MONO 0.52 10e9/L 014 Unknown COMPLETE BLOOD COUNT [id number] ABS EOS 0.13 10e9/L 014 Unknown COMPLETE BLOOD COUNT [id number] ABS BASO 0.03 10e9/L 014 Unknown COMPLETE BLOOD COUNT [id number] RDW-SD 45.7 fL 4 Unknown THYROID STIMULATING HORMONE 65108 TSH 1.013 uIU/ML 12/11/2013 Unknown COMPREHENSIVE METABOLIC 57784 AST 20 U/L 2013 Unknown COMPREHENSIVE METABOLIC 06406 ALT 16 IU/L 2013 Unknown COMPREHENSIVE METABOLIC 72973 BUN 17 MG/DL 2013 Unknown COMPREHENSIVE METABOLIC 01942 ALBUMIN 4.6 GM/DL 2013 Unknown COMPREHENSIVE METABOLIC 12999 CHLORIDE 107 MMOL/L 12/11 Unknown COMPREHENSIVE METABOLIC 69851 BILI TOT 0.7 MG/DL 2013 Unknown COMPREHENSIVE METABOLIC 62902 ALK PHOS 53 U/L 2013 Unknown COMPREHENSIVE METABOLIC 18698 SODIUM 140 MMOL/L 12/11 Unknown COMPREHENSIVE METABOLIC 23372 CREATININE 0.84 MG/DL 06/2013 Unknown COMPREHENSIVE METABOLIC 89920 CALCIUM 9.7 MG/DL 2013 Unknown COMPREHENSIVE METABOLIC 38861 POTASSIUM 4.6 MMOL/L 12/11 Unknown COMPREHENSIVE METABOLIC 09543 PROT TOT 6.9 GM/DL 2013 Unknown COMPREHENSIVE METABOLIC 29966 Glucose 97 MG/DL 2013 Unknown COMPREHENSIVE METABOLIC 66322 BICARB 25 MMOL/L 2013 Unknown COMPREHENSIVE METABOLIC 90786 ANION GAP 8 MEQ/L 2013 Unknown FREE T4 40002 FREE T4 1.11 NG/DL 12/11/2013 Unknown ASSAY OF CREATININE 83549 CREATININE 0.98 MG/DL 09/15/19 12 Unknown URIC ACID 79826 URIC ACID 4.9 MG/DL 09/15/2011 Unknown GFR CALC [id number] GFR AA >60 ML/MIN 09/15/2011 Unknown GFR CALC 2628746 GFR NON-AA >60 ML/MIN 09/15/2011 Unknown THYROID STIMULATING HORMONE 35049 TSH 1.687 uIU/ML 08/01/2011 Unknown FREE T4 56807 FREE T4 0.96 NG/DL 08/01/2011 Unknown SJOGRENS [id number] SJOGRN A <20 EU/ML 08/01/2011 Unknown SJOGRENS [id number] SJOGRN B <20 EU/ML 08/01/2011 Unknown SJOGRENS [id number] NONHIS INT SEE BELO 08/01/2011 Unknown THYRO PERX [id number] THYRO PERX 175.34 UNITS 07/30/2011 Unkn own DNA AB [id number] DNA AB 32 IU/ML 07/29/2011 Unknown TITER WENDI [id number] TITR WENDI 1:160 07/29/2011 Unknown TITER WENDI [id number] PATTERN NUCLEOLR 07/29/2011 Unknown ANTINUCLEAR ANTIBODY SCREEN 44703 WENDI SCR POSITIVE Unknown COMPREHENSIVE METABOLIC 72043 AST 23 U/L 2011 Unknown COMPREHENSIVE METABOLIC 68717 ALT 26 IU/L 2011 Unknown COMPREHENSIVE METABOLIC 09375 BUN 18 MG/DL 2011 Unknown COMPREHENSIVE METABOLIC 61936 ALBUMIN 4.6 GM/DL 2011 Unknown COMPREHENSIVE METABOLIC 05360 CHLORIDE 105 MMOL/L 07/27 Unknown COMPREHENSIVE METABOLIC 88132 BILI TOT 0.5 MG/DL 2011 Unknown COMPREHENSIVE METABOLIC 25391 ALK PHOS 63 U/L 2011 Unknown COMPREHENSIVE METABOLIC 64483 SODIUM 138 MMOL/L 07/27 Unknown COMPREHENSIVE METABOLIC 44019 CREATININE 0.92 MG/DL 07/09 Unknown COMPREHENSIVE METABOLIC 72069 CALCIUM 9.4 MG/DL 2011 Unknown COMPREHENSIVE METABOLIC 03548 POTASSIUM 3.9 MMOL/L 07/27 Unknown COMPREHENSIVE METABOLIC 20433 PROT TOT 6.7 GM/DL 2011 Unknown COMPREHENSIVE METABOLIC 14202 Glucose 101 MG/DL 2011 Unknown COMPREHENSIVE METABOLIC 38473 BICARB 24 MMOL/L 2011 Unknown COMPREHENSIVE METABOLIC 10323 ANION GAP 9 MEQ/L 2011 Unknown GFR CALC 5593004 GFR AA >60 ML/MIN 07/28/2011 Unknown GFR CALC 0224380 GFR NON-AA >60 ML/MIN 07/28/2011 Unknown ERYTHROCYTE SEDIMENTATION RATE 01983 ESR 2 MM/HR 07/28/2011 Unknown URIC ACID 73002 URIC ACID 5.8 MG/DL 07/28/2011 Unknown C-REACTIVE PROTEIN (CRP) QUANT 51918 CRP 0.2 MG/DL 07/28/2011 Unknown TITER WENDI [id number] TITR WENDI 1:160 05/26/2011 Unknown TITER WENDI [id number] PATTERN NUCLEOLR 05/26/2011 Unknown RA FACTOR 42054 RA FACTOR <20.0 IU/ML 05/26/2011 Unknown ANTINUCLEAR ANTIBODY SCREEN 68098 WENDI SCR POSITIVE Unknown URIC ACID 35112 URIC ACID 8.7 MG/DL 05/25/2011 Unknown PSA EQUIMOLAR JONATAN 29406 PSA EQ 2.79 NG/ML 2 Unknown LIPID GROUP 33066 HDL TEST 47 MG/DL 05/25/2011 Unknown LIPID GROUP 71907 TRIG 198 MG/DL 05/25/2011 Unknown LIPID GROUP 88424 TEST LDL 180 MG/DL 05/25/2011 Unknown LIPID GROUP 99967 CHOL 267 MG/DL 05/25/2011 Unknown LIPID GROUP 35655 RCHOL/HDL 5.68 RATIO 05/25/2011 Unknow n COMPREHENSIVE METABOLIC 78785 AST 21 U/L 2011 Unknown COMPREHENSIVE METABOLIC 68427 ALT 21 IU/L 2011 Unknown COMPREHENSIVE METABOLIC 18078 BUN 16 MG/DL 2011 Unknown COMPREHENSIVE METABOLIC 07360 ALBUMIN 4.4 GM/DL 2011 Unknown COMPREHENSIVE METABOLIC 48622 CHLORIDE 105 MMOL/L 05/25 Unknown COMPREHENSIVE METABOLIC 06375 BILI TOT 0.7 MG/DL 2011 Unknown COMPREHENSIVE METABOLIC 35471 ALK PHOS 60 U/L 2011 Unknown COMPREHENSIVE METABOLIC 98677 SODIUM 139 MMOL/L 05/25 Unknown COMPREHENSIVE METABOLIC 30431 CREATININE 0.92 MG/DL 05/11 Unknown COMPREHENSIVE METABOLIC 30166 CALCIUM 9.4 MG/DL 2011 Unknown COMPREHENSIVE METABOLIC 35518 POTASSIUM 4.1 MMOL/L 05/25 Unknown COMPREHENSIVE METABOLIC 40025 PROT TOT 7.0 GM/DL 2011 Unknown COMPREHENSIVE METABOLIC 98759 Glucose 108 MG/DL 2011 Unknown COMPREHENSIVE METABOLIC 76534 BICARB 25 MMOL/L 2011 Unknown COMPREHENSIVE METABOLIC 48898 ANION GAP 9 MEQ/L 2011 Unknown GFR CALC 5209939 GFR AA >60 ML/MIN 05/25/2011 Unknown GFR CALC 5850622 GFR NON-AA >60 ML/MIN 05/25/2011 Unknown COMPLETE BLOOD COUNT 02160 WBC 5.6 10e9/L 05/25/19 12 Unknown COMPLETE BLOOD COUNT 60337 RBC 5.01 10e12/L 2011 Unknown COMPLETE BLOOD COUNT 48893 HGB 15.8 g/dL 2 Unknown COMPLETE BLOOD COUNT 88615 HCT DET 46.1 % 2 Unknown COMPLETE BLOOD COUNT 35095 MCV 92.0 fL 2 Unknown COMPLETE BLOOD COUNT 38831 MCH 31.5 pg 2 Unknown COMPLETE BLOOD COUNT 28821 MCHC 34.3 g/dL 2 Unknown COMPLETE BLOOD COUNT 39712 PLT 246 10e9/L 05/25/19 12 Unknown COMPLETE BLOOD COUNT 66779 MPV 10.3 fL 2 Unknown COMPLETE BLOOD COUNT 47450 VERONIQUE % 47.1 % 2 Unknown COMPLETE BLOOD COUNT 71938 LY % 41.0 % 2 Unknown COMPLETE BLOOD COUNT 24087 MON % 8.9 % 2 Unknown COMPLETE BLOOD COUNT 72631 EOS % 2.5 % 2 Unknown COMPLETE BLOOD COUNT 15591 BASO % 0.5 % 2 Unknown COMPLETE BLOOD COUNT 06814 RDW 12.7 % 2 Unknown COMPLETE BLOOD COUNT 07824 ABS VERONIQUE 2.64 10e9/L 012 Unknown COMPLETE BLOOD COUNT 19784 ABS LYMPH 2.30 10e9/L 012 Unknown COMPLETE BLOOD COUNT 15448 ABS MONO 0.50 10e9/L 012 Unknown COMPLETE BLOOD COUNT 82082 ABS EOS 0.14 10e9/L 012 Unknown COMPLETE BLOOD COUNT 65972 ABS BASO 0.03 10e9/L 012 Unknown COMPLETE BLOOD COUNT 04688 RDW-SD 41.3 fL 2 Unknown COMPREHENSIVE METABOLIC 46843 AST 18 U/L 2010 Unknown COMPREHENSIVE METABOLIC 44332 ALT 14 IU/L 2010 Unknown COMPREHENSIVE METABOLIC 76761 BUN 12 MG/DL 2010 Unknown COMPREHENSIVE METABOLIC 66304 ALBUMIN 4.6 GM/DL 2010 Unknown COMPREHENSIVE METABOLIC 94950 CHLORIDE 102 MMOL/L 02/01 Unknown COMPREHENSIVE METABOLIC 83318 BILI TOT 0.6 MG/DL 2010 Unknown COMPREHENSIVE METABOLIC 34230 ALK PHOS 66 U/L 2010 Unknown COMPREHENSIVE METABOLIC 34529 SODIUM 139 MMOL/L 02/01 Unknown COMPREHENSIVE METABOLIC 98305 CREATININE 0.92 MG/DL 01/09 Unknown COMPREHENSIVE METABOLIC 31545 CALCIUM 9.8 MG/DL 2010 Unknown COMPREHENSIVE METABOLIC 39583 POTASSIUM 4.1 MMOL/L 02/01 Unknown COMPREHENSIVE METABOLIC 90839 PROT TOT 7.0 GM/DL 2010 Unknown COMPREHENSIVE METABOLIC 38242 Glucose 101 MG/DL 2010 Unknown COMPREHENSIVE METABOLIC 21206 BICARB 25 MMOL/L 2010 Unknown COMPREHENSIVE METABOLIC 11823 ANION GAP 12 MEQ/L 2010 Unknown GFR CALC 6837754 GFR AA >60 ML/MIN 02/01/2011 Unknown GFR CALC 3535318 GFR NON-AA >60 ML/MIN 02/01/2011 Unknown LIPID GROUP 33854 HDL TEST 44 MG/DL 02/01/2011 Unknown LIPID GROUP 16689 TRIG 157 MG/DL 02/01/2011 Unknown LIPID GROUP 01612 TEST LDL 193 MG/DL 02/01/2011 Unknown LIPID GROUP 91781 CHOL 268 MG/DL 02/01/2011 Unknown LIPID GROUP 37313 RCHOL/HDL 6.09 RATIO 02/01/2011 Unknow n FREE T4 14997 FREE T4 1.04 NG/DL 02/01/2011 Unknown COMPLETE BLOOD COUNT 74391 WBC 6.4 10e9/L 02/02/20 11 Unknown COMPLETE BLOOD COUNT 06134 RBC 4.56 10e12/L 2010 Unknown COMPLETE BLOOD COUNT 94316 HGB 14.4 g/dL 1 Unknown COMPLETE BLOOD COUNT 82901 HCT DET 43.0 % 1 Unknown COMPLETE BLOOD COUNT 50396 MCV 94.3 fL 1 Unknown COMPLETE BLOOD COUNT 36714 MCH 31.6 pg 1 Unknown COMPLETE BLOOD COUNT 53812 MCHC 33.5 g/dL 1 Unknown COMPLETE BLOOD COUNT 29130 PLT 300 10e9/L 02/02/20 11 Unknown COMPLETE BLOOD COUNT 73111 MPV 9.9 fL 1 Unknown COMPLETE BLOOD COUNT 09273 VERONIQUE % 38.5 % 1 Unknown COMPLETE BLOOD COUNT 65649 LY % 49.1 % 1 Unknown COMPLETE BLOOD COUNT 02726 MON % 10.1 % 1 Unknown COMPLETE BLOOD COUNT 72561 EOS % 1.7 % 1 Unknown COMPLETE BLOOD COUNT 84438 BASO % 0.6 % 1 Unknown COMPLETE BLOOD COUNT 21752 RDW 15.1 % 1 Unknown COMPLETE BLOOD COUNT 45078 ABS VERONIQUE 2.46 10e9/L 011 Unknown COMPLETE BLOOD COUNT 85561 ABS LYMPH 3.14 10e9/L 011 Unknown COMPLETE BLOOD COUNT 98681 ABS MONO 0.65 10e9/L 011 Unknown COMPLETE BLOOD COUNT 31339 ABS EOS 0.11 10e9/L 011 Unknown COMPLETE BLOOD COUNT 22118 ABS BASO 0.04 10e9/L 011 Unknown COMPLETE BLOOD COUNT 28637 RDW-SD 50.6 fL 1 Unknown THYROID STIMULATING HORMONE 38484 TSH 1.128 uIU/ML 02/01/2011 Unknown PSA EQUIMOLAR JONATAN 87863 PSA EQ 3.83 NG/ML 1 Unknown VCA AB G/M 1955125 EBV G VCA 3.34 12/03/2010 Unknown VCA AB G/M 2896020 EBV M VCA 0.12 12/03/2010 Unknown EB GARY AG 0374645 EB GARY AG 0.47 12/03/2010 Unknown EB NUCL AB 8127135 EB NUCL AB 3.72 12/03/2010 Unknown COMPLETE BLOOD COUNT 32140 WBC 8.0 10e9/L 12/03/19 11 Unknown COMPLETE BLOOD COUNT 60847 RBC 4.93 10e12/L 2010 Unknown COMPLETE BLOOD COUNT 75087 HGB 15.7 g/dL 1 Unknown COMPLETE BLOOD COUNT 74974 HCT DET 45.4 % 1 Unknown COMPLETE BLOOD COUNT 01805 MCV 92.1 fL 1 Unknown COMPLETE BLOOD COUNT 98803 MCH 31.8 pg 1 Unknown COMPLETE BLOOD COUNT 29242 MCHC 34.6 g/dL 1 Unknown COMPLETE BLOOD COUNT 50911 PLT 248 10e9/L 12/03/19 11 Unknown COMPLETE BLOOD COUNT 97348 MPV 10.4 fL 1 Unknown COMPLETE BLOOD COUNT 55121 VERONIQUE % 74.0 % 1 Unknown COMPLETE BLOOD COUNT 15736 LY % 19.6 % 1 Unknown COMPLETE BLOOD COUNT 04482 MON % 5.2 % 1 Unknown COMPLETE BLOOD COUNT 64219 EOS % 1.1 % 1 Unknown COMPLETE BLOOD COUNT 05783 BASO % 0.1 % 1 Unknown COMPLETE BLOOD COUNT 89164 RDW 12.5 % 1 Unknown COMPLETE BLOOD COUNT 77460 ABS VERONIQUE 5.92 10e9/L 011 Unknown COMPLETE BLOOD COUNT 70507 ABS LYMPH 1.57 10e9/L 011 Unknown COMPLETE BLOOD COUNT 61798 ABS MONO 0.42 10e9/L 011 Unknown COMPLETE BLOOD COUNT 93120 ABS EOS 0.09 10e9/L 011 Unknown COMPLETE BLOOD COUNT 60830 ABS BASO 0.01 10e9/L 011 Unknown COMPLETE BLOOD COUNT 77944 RDW-SD 41.1 fL 1 Unknown URIC ACID 29271 URIC ACID 9.3 MG/DL 12/02/2010 Unknown Procedures Procedure Codes Date URINALYSIS NONAUTO W/O SCOPE CPT-4: 17887 06/20/2019 URINE CULTURE/ COLONY COUNT CPT-4: 37123 06/20/2019 DEXAMETHASONE SODIUM PHOS CPT-4: J1100 05/31/2019 THER/PROPH/DIAG INJ SC/IM CPT-4: 64238 05/31/2019 THER/PROPH/DIAG INJ SC/IM CPT-4: 55623 05/17/2019 TRIAMCINOLONE ACET INJ NOS CPT-4: J3301 05/17/2019 DRAINAGE OF SKIN ABSCESS CPT-4: 52669 01/23/2019 AEROBIC WOUND CULTURE & STN CPT-4: 63992 01/23/2019 ROUTINE VENIPUNCTURE CPT-4: 22970 03/29/2017 ASSAY THYROID STIM HORMONE CPT-4: 78698 03/29/2017 ASSAY OF FREE THYROXINE CPT-4: 82140 03/29/2017 COMPREHEN METABOLIC PANEL CPT-4: 43859 03/29/2017 COMPLETE CBC W/AUTO DIFF WBC CPT-4: 52223 03/29/2017 LIPID PANEL CPT-4: 29066 03/29/2017 ASSAY OF BLOOD/URIC ACID CPT-4: 96834 03/29/2017 RBC SED RATE AUTOMATED CPT-4: 94541 03/29/2017 ROUTINE VENIPUNCTURE CPT-4: 38271 03/15/2017 ACUTE HEPATITIS PANEL CPT-4: 53119 03/15/2017 HIV-1/HIV-2 1 RESULT ANTBDY CPT-4: 80358 03/15/2017 EXC TR-EXT B9+SHASHA 0.5 CM< CPT-4: 81170 03/15/2017 EXC TR-EXT B9+SHASHA 1.1-2 CM CPT-4: 21715 03/15/2017 URINALYSIS NONAUTO W/O SCOPE CPT-4: 77594 01/07/2015 URINE CULTURE/ COLONY COUNT CPT-4: 48653 01/07/2015 ROUTINE VENIPUNCTURE CPT-4: 46838 01/07/2015 ASSAY OF FREE THYROXINE CPT-4: 91715 01/07/2015 ASSAY THYROID STIM HORMONE CPT-4: 79251 01/07/2015 COMPREHEN METABOLIC PANEL CPT-4: 81623 01/07/2015 COMPLETE CBC W/AUTO DIFF WBC CPT-4: 99959 01/07/2015 LIPID PANEL CPT-4: 98868 01/07/2015 ASSAY OF PSA TOTAL CPT-4: 78480 01/07/2015 ASSAY OF BLOOD/URIC ACID CPT-4: 85862 01/07/2015 ROUTINE VENIPUNCTURE CPT-4: 42538 12/11/2013 ASSAY OF FREE THYROXINE CPT-4: 57462 12/11/2013 ASSAY THYROID STIM HORMONE CPT-4: 26812 12/11/2013 COMPREHEN METABOLIC PANEL CPT-4: 88013 12/11/2013 COMPLETE CBC W/AUTO DIFF WBC CPT-4: 51798 12/11/2013 LIPID PANEL CPT-4: 13655 12/11/2013 ASSAY OF BLOOD/URIC ACID CPT-4: 00266 12/11/2013 ASSAY OF PSA TOTAL CPT-4: 60183 12/11/2013 URINE CULTURE/ COLONY COUNT CPT-4: 04372 01/02/2013 AEROBIC WOUND CULTURE & STN CPT-4: 96261 10/10/2011 DRAINAGE OF SKIN ABSCESS CPT-4: 26662 10/10/2011 ASSAY OF CREATININE CPT-4: 84645 09/15/2011 ASSAY OF BLOOD/URIC ACID CPT-4: 50706 09/15/2011 ROUTINE VENIPUNCTURE CPT-4: 95441 07/28/2011 ANTINUCLEAR ANTIBODIES CPT-4: 57055 07/28/2011 RBC SED RATE AUTOMATED CPT-4: 20267 07/28/2011 ASSAY OF BLOOD/URIC ACID CPT-4: 87953 07/28/2011 COMPREHEN METABOLIC PANEL CPT-4: 22497 07/28/2011 C-REACTIVE PROTEIN CPT-4: 45200 07/28/2011 THYRO PERX CPT-4: 2710786 07/28/2011 DNA AB CPT-4: 8965091 07/28/2011 SJOGRENS CPT-4: 7326086 07/28/2011 ASSAY OF FREE THYROXINE CPT-4: 69612 07/28/2011 ASSAY THYROID STIM HORMONE CPT-4: 18596 07/28/2011 ROUTINE VENIPUNCTURE CPT-4: 29570 05/25/2011 COMPREHEN METABOLIC PANEL CPT-4: 56689 05/25/2011 COMPLETE CBC W/AUTO DIFF WBC CPT-4: 74603 05/25/2011 ANTINUCLEAR ANTIBODIES CPT-4: 56833 05/25/2011 RHEUMATOID FACTOR QUANT CPT-4: 64103 05/25/2011 ASSAY OF PSA TOTAL CPT-4: 58763 05/25/2011 ASSAY OF BLOOD/URIC ACID CPT-4: 30641 05/25/2011 LIPID PANEL CPT-4: 20106 05/25/2011 ROUTINE VENIPUNCTURE CPT-4: 55931 02/01/2011 ASSAY OF FREE THYROXINE CPT-4: 61564 02/01/2011 ASSAY THYROID STIM HORMONE CPT-4: 75899 02/01/2011 COMPREHEN METABOLIC PANEL CPT-4: 35923 02/01/2011 COMPLETE CBC W/AUTO DIFF WBC CPT-4: 57842 02/01/2011 LIPID PANEL CPT-4: 16113 02/01/2011 ASSAY OF PSA TOTAL CPT-4: 16047 02/01/2011 ROUTINE VENIPUNCTURE CPT-4: 60984 12/02/2010 ASSAY OF BLOOD/URIC ACID CPT-4: 28013 12/02/2010 EB VIRUS VCA G/M + EBNA + EA CPT-4: 96657|66768 x 2|78605 COMPLETE CBC W/AUTO DIFF WBC CPT-4: 14858 12/02/2010 COMPREHEN METABOLIC PANEL CPT-4: 77810 09/14/2009 ASSAY OF BLOOD/URIC ACID CPT-4: 38777 09/14/2009 ROUTINE VENIPUNCTURE CPT-4: 78021 09/14/2009 URINALYSIS NONAUTO W/O SCOPE CPT-4: 40135 09/01/2009 Vital Signs Date Vital 06/20/2019 Respiratory Rate: 20 bpm 05/31/2019 Blood Pressure 1: 127/80 Code: 8480-6 Heart Rate 1: 77 bpm Respiratory Rate: 18 bpm SpO2: 97% Temperature: 36.1 (C) / 97.0 (F) We ight: 177 lbs 05/17/2019 Blood Pressure 1: 112/70 Code: 8480-6 Heart Rate 1: 76 bpm SpO2: 97% Temperature: 36.8 (C) / 98.2 (F) Weight: 177 lbs 01/25/2019 Blood Pressure 1: 130/78 Code: 8480-6 Heart Rate 1: 90 bpm SpO2: 96% Temperature: 36.4 (C) / 97.5 (F) Weight: 181 lbs 01/23/2019 Blood Pressure 1: 136/86 Code: 8480-6 Heart Rate 1: 108 bpm Respiratory Rate: 20 bpm SpO2: 98% Temperature: 36.8 (C) / 98.2 (F) We ight: 178 lbs 10/31/2018 Blood Pressure 1: 118/80 Code: 8480-6 Heart Rate 1: 101 bpm SpO2: 95% Temperature: 36.8 (C) / 98.3 (F) Weight: 183 lbs 01/18/2018 Blood Pressure 1: 140/88 Code: 8480-6 Heart Rate 1: 108 bpm Respiratory Rate: 20 bpm SpO2: 94% Temperature: 36.7 (C) / 98.0 (F) We ight: 178 lbs 03/15/2017 Blood Pressure 1: 124/82 Code: 8480-6 Heart Rate 1: 76 bpm Respiratory Rate: 20 bpm SpO2: 96% Temperature: 36.6 (C) / 97.9 (F) 03/13/2017 Blood Pressure 1: 118/64 Code: 8480-6 BMI: 29.7 Code: 96669-5 Heart Rate 1: 100 bpm Height: 5'6" Respiratory Rate: 22 bpm SpO2: 95% Tempera ture: 36.7 (C) / 98.0 (F) Weight: 187 lbs 02/27/2017 Blood Pressure 1: 132/76 Code: 8480-6 BMI: 30.8 Code: 65216-8 Heart Rate 1: 96 bpm Height: 5'6" Respiratory Rate: 22 bpm SpO2: 98% Tempera ture: 36.6 (C) / 97.8 (F) Weight: 194 lbs 03/31/2015 Blood Pressure 1: 128/90 Code: 8480-6 Heart Rate 1: 88 bpm Respiratory Rate: 20 bpm Temperature: 36.9 (C) / 98.4 (F) Weight: 192 lbs 01/07/2015 Blood Pressure 1: 132/80 Code: 8480-6 BMI: 30.2 Code: 54657-5 Heart Rate 1: 78 bpm Height: 5'6" Respiratory Rate: 22 bpm Temperature: 36 .7 (C) / 98.1 (F) Weight: 190 lbs 04/15/2014 Blood Pressure 1: 136/88 Code: 8480-6 BMI: 31.0 Code: 41664-5 Heart Rate 1: 84 bpm Height: 5'6" Respiratory Rate: 20 bpm Temperature: 36 .1 (C) / 97.0 (F) Weight: 192 lbs 12/10/2013 Blood Pressure 1: 142/90 Code: 8480-6 BMI: 29.1 Code: 07422-4 Heart Rate 1: 72 bpm Height: 5'7" Respiratory Rate: 20 bpm Temperature: 36 .6 (C) / 97.8 (F) Weight: 186 lbs 05/02/2013 Blood Pressure 1: 146/96 Code: 8480-6 BMI: 30.5 Code: 32839-8 Heart Rate 1: 88 bpm Height: 5'7" Respiratory Rate: 20 bpm Temperature: 37 .0 (C) / 98.6 (F) Weight: 195 lbs 01/02/2013 Blood Pressure 1: 132/84 Code: 8480-6 BMI: 30.2 Code: 82353-0 Heart Rate 1: 80 bpm Height: 5'7" Respiratory Rate: 20 bpm Temperature: 36 .9 (C) / 98.4 (F) Weight: 193 lbs 10/10/2011 Blood Pressure 1: 122/68 Code: 8480-6 BMI: 35.7 Code: 24964-5 Heart Rate 1: 84 bpm Height: 5'2" Temperature: 36.9 (C) / 98.5 (F) Weight: 195 lbs 08/12/2011 Blood Pressure 1: 110/80 Code: 8480-6 BMI: 36.9 Code: 09146-2 Heart Rate 1: 80 bpm Height: 5'2" Temperature: 36.4 (C) / 97.6 (F) Weight: 202 lbs 08/04/2011 Blood Pressure 1: 126/80 Code: 8480-6 BMI: 37.9 Code: 12372-7 Heart Rate 1: 76 bpm Height: 5'2" Respiratory Rate: 20 bpm Temperature: 37 .0 (C) / 98.6 (F) Weight: 207 lbs 05/24/2011 Blood Pressure 1: 122/82 Code: 8480-6 BMI: 37.7 Code: 45455-7 Heart Rate 1: 68 bpm Height: 5'2" Temperature: 36.7 (C) / 98.1 (F) Weight: 206 lbs 04/15/2011 Blood Pressure 1: 128/82 Code: 8480-6 BMI: 37.1 Code: 95843-0 Heart Rate 1: 68 bpm Height: 5'2" Temperature: 36.7 (C) / 98.0 (F) Weight: 203 lbs 01/13/2011 Blood Pressure 1: 128/88 Code: 8480-6 Heart Rate 1: 88 bpm Temperature: 36.7 (C) / 98.0 (F) Weight: 192 lbs 12/23/2010 Blood Pressure 1: 104/66 Code: 8480-6 Heart Rate 1: 116 bpm Temperature: 36.8 (C) / 98.2 (F) 12/15/2010 Blood Pressure 1: 106/62 Code: 8480-6 BMI: 36.8 Code: 24887-4 Heart Rate 1: 90 bpm Height: 5'2" SpO2: 94% Temperature: 36.4 (C) / 97.6 (F) Weight: 201 lbs 12/02/2010 Blood Pressure 1: 142/90 Code: 8480-6 BMI: 36.8 Code: 98969-8 Heart Rate 1: 96 bpm Height: 5'2" Temperature: 36.7 (C) / 98.1 (F) Weight: 201 lbs 04/19/2010 Blood Pressure 1: 132/86 Code: 8480-6 Heart Rate 1: 74 bpm Temperature: 36.8 (C) / 98.2 (F) 04/14/2010 Blood Pressure 1: 132/78 Code: 8480-6 Heart Rate 1: 84 bpm Temperature: 36.8 (C) / 98.3 (F) Weight: 200 lbs 09/01/2009 Blood Pressure 1: 94/68 Code: 8480-6 Heart Rate 1: 88 bpm Temperature: 36.9 (C) / 98.4 (F) Weight: 182 lbs Functional Status No Functional Status data Reason For Visit Reason For Visit Effective Dates Notes testicular tenderness 06/20/2019 rash 05/31/2019 rash 05/17/2019 follow up 01/25/2019 from abcess cellulitis 01/23/2019 nausea 10/31/2018 diarrhea 01/18/2018 upset stomach follow up 03/29/2017 Suture Removal to Mi ddle Back cyst 03/15/2017 follow up 03/13/2017 Patient currently on Mobic pain, limb 02/27/2017 cyst 03/31/2015 vs lipoma well man exam (40-65 years) 01/07/2015 [facility] cough 04/15/2014 rectal Itching start ed 2 days ago lab draw 12/11/2013 follow up 12/10/2013 1wk fwup high blood pressure 05/02/2013 flank pain 01/02/2013 arthropod bite 10/10/2011 lab draw 09/15/2011 diarrhea 08/12/2011 follow up 08/04/2011 discuss recent labs lab draw 07/28/2011 rash 05/24/2011 possible allergic re action to penicillin that was started on Monday cough 04/15/2011 follow up 01/13/2011 2wk fwup/still has k not to right clavicle area, stopped hydrocodone follow up 12/23/2010 1wk fwup follow up 12/15/2010 ER visit 12/07/10 for chest pain and right sided arm numbness and pain. Symptoms persist. Limited ROM in neck, shooting pains and throbbing behind ear, down clavicle and into right arm. States has swelling on right side of head. ER report attached to chart for review. sore throat 12/02/2010 rash 04/19/2010 dysphagia 04/14/2010 back pain 09/01/2009 mid back, seeing chi ropractor with no success Encounters Encounter Performer Location Codes Date () OFFICE/OUTPATIENT VISIT EST Diagnosis: Enlarged testicle[ICD10: N50.89] Diagnosis: Polyuria[ICD10: R35.8] Azra Romeroronald [employer] Pages[employer] CLAUDE TOVAR CPT-4: 20836 06/20/2019 ([id number]) OFFICE/OUTPATIENT VISIT EST Diagnosis: Acute contact dermatitis[ICD10: L25.9] Azra Romeroronald BROWNLEE SFrancisco [employer] [email or web address] CPT-4: 06181 05/31/2019 ([id number]) OFFICE/OUTPATIENT VISIT EST Diagnosis: Acute contact dermatitis[ICD10: L25.9] Diagnosis: Acute sinusitis[ICD10: J01.90] Sylvie SAINZ S Francisco [employer] PagesJEAN CLAUDE [employer] CPT-4: 36917 05/17/2019 ([id number]) OFFICE/OUTPATIENT VISIT EST Diagnosis: Acute gastritis without bleeding[ICD10: K29.00] Diagnosis: Essential (primary) hypertension[ICD10: I10] Diagnosis: Hyperlipidemia, unspecified[ICD10: E78.5] Azra COBB [employer] [facility] CPT-4: 85683 10/31/2018 ([id number]) OFFICE/OUTPATIENT VISIT EST Diagnosis: Acute gastritis without bleeding[ICD10: K29.00] Azra COBB [employer] [facility] CPT-4: 76375 01/18/2018 ([id number]) OFFICE/OUTPATIENT VISIT EST Diagnosis: Hyperlipidemia, unspecified[ICD10: E78.5] Diagnosis: Essential (primary) hypertension[ICD10: I10] Diagnosis: Weakness[ICD10: R53.1] Diagnosis: Sebaceous cyst[ICD10: L72.3] Diagnosis: Idiopathic gout, unspecified site[ICD10: M10.00] Sylvie SAINZ [employer] [facility] [employer] [facility] CPT-4: 65300 03/29/2017 OFFICE/OUTPATIENT VISIT EST Diagnosis: Pain in right knee[ICD10: M25.561] Azra HOSKINS Francisco [facility] [employer] [facility] CPT-4: 32732 03/13/2017 OFFICE/OUTPATIENT VISIT EST Diagnosis: Pain in right leg[ICD10: M79.604] Diagnosis: Sebaceous cyst[ICD10: L72.3] Azra [facility]PARKL[facility]ENTER[facility]inn[facility] [employer] CPT-4: 82014 02/27/2017 OFFICE/OUTPATIENT VISIT EST Diagnosis: Local infection of the skin and subcutaneous tissue, unspecified[ICD10: L08.9] Diagnosis: Essential (primary) hypertension[ICD10: I10] Diagnosis: Hyperlipidemia, unspecified[ICD10: E78.5] Dagmar Ahmadi SYLVIE [employer] [facility] [employer] [facility] CPT-4: 66642 03/31/2015 ([id number]) PREV VISIT EST AGE 40-64 Diagnosis: History of chest pain[ICD9: V13.89] Diagnosis: Right flank pain[ICD9: 789.09] Diagnosis: ROUTINE MEDICAL EXAM[ICD9: V70.0] Diagnosis: HYPERTENSION[ICD9: 401.9] Diagnosis: HYPERLIPIDEMIA NEC/NOS[ICD9: 272.4] Diagnosis: Colon polyps[ICD9: 211.3] Diagnosis: HEMATURIA NOS[ICD9: 599.70] Dagmar ChapaFrancisco AGAPITO MOLINA [facility] CPT-4: 23561 01/07/2015 OFFICE/OUTPATIENT VISIT EST Diagnosis: COUGH[ICD9: 786.2] Diagnosis: Rectal itching[ICD9: 698.0] Dagmar ChapaFrancisco AGAPITO MOLINA [facility] CPT-4: 51580 04/15/2014 ([id number]) OFFICE/OUTPATIENT VISIT EST Diagnosis: ROUTINE MEDICAL EXAM[ICD9: V70.0] Diagnosis: GOUT[ICD9: 274.9] Diagnosis: HYPERLIPIDEMIA NEC/NOS[ICD9: 272.4] Diagnosis: HYPERTENSION[ICD9: 401.9] Sylvie Yvanjean claude Phillips YVAN MARLINGurjit [facility] CPT-4: 69499 12/11/2013 ([id number]) OFFICE/OUTPATIENT VISIT EST Diagnosis: Shingles[ICD9: 053.9] Sylvie Phillips AGAPITO [facility] CPT-4: 10960 12/10/2013 ([id number]) OFFICE/OUTPATIENT VISIT EST Diagnosis: HYPERTENSION[ICD9: 401.9] Diagnosis: Colon polyps[ICD9: 211.3] Diagnosis: Stress reaction[ICD9: 308.9] Sylvie Yvanjean claude Phillips AGAPITO [facility] CPT-4: 95292 05/02/2013 ([id number]) OFFICE/OUTPATIENT VISIT EST Diagnosis: URINARY TRACT INFECTION[ICD9: 599.0] Sylvie Phillips AGAPITO [facility] CPT-4: 33688 01/02/2013 OFFICE/OUTPATIENT VISIT EST Diagnosis: CELLULITIS OF TRUNK[ICD9: 682.2] Diagnosis: SPRAIN SHOULDER/ARM[ICD9: 840.9] Liza Phillips AGAPITO [facility] CPT-4: 58327 10/10/2011 ([id number]) OFFICE/OUTPATIENT VISIT EST Diagnosis: GOUT[ICD9: 274.9] Sylvie Phillips YVANJEAN CLAUDE [facility] CPT-4: 67012 09/15/2011 OFFICE/OUTPATIENT VISIT EST Diagnosis: DIARRHEA[ICD9: 787.91] Sylvie Phillips HUONG R [facility] CPT-4: 25310 08/12/2011 ([id number]) OFFICE/OUTPATIENT VISIT EST Diagnosis: GOUT[ICD9: 274.9] Diagnosis: Positive WENDI (antinuclear antibody)[ICD9: 795.79] Sylvie BYRNE [facility] CPT-4: 07372 08/04/2011 OFFICE/OUTPATIENT VISIT EST Diagnosis: Rash[ICD9: 782.1] Diagnosis: Joint pain[ICD9: 719.40] Diagnosis: Hyperlipidemia[ICD9: 272.4] Sylvie SAINZ S. O RENDER [facility] CPT-4: 38179 05/24/2011 OFFICE/OUTPATIENT VISIT EST Diagnosis: PHARYNGITIS, ACUTE[ICD9: 462] Diagnosis: COUGH[ICD9: 786.2] Diagnosis: SINUSITIS, ACUTE[ICD9: 461.9] Sylvie WILSONLINE SammiFrancisco AGAPITO [facility] CPT-4: 83336 04/15/2011 OFFICE/OUTPATIENT VISIT EST Diagnosis: Clavicle fracture[ICD9: 810.00] Sylvie BYRNE [facility] CPT-4: 58361 01/13/2011 OFFICE/OUTPATIENT VISIT EST Diagnosis: Clavicle pain[ICD9: 719.41] Sylvie SAINZ S. O RENDER [facility] CPT-4: 60143 12/23/2010 OFFICE/OUTPATIENT VISIT EST Diagnosis: Arm pain[ICD9: 729.5] Diagnosis: SPASM OF MUSCLE[ICD9: 728.85] Diagnosis: Neck pain[ICD9: 723.1] Sylvie WILSONLINE SammiFrancisco HUONG Cagle [facility] CPT-4: 82525 12/15/2010 OFFICE/OUTPATIENT VISIT EST Diagnosis: HYPERTENSION[ICD9: 401.9] Diagnosis: PHARYNGITIS, ACUTE[ICD9: 462] Diagnosis: MALAISE AND FATIGUE[ICD9: 780.79] Diagnosis: GOUT[ICD9: 274.9] Sylvie WILSONLINE SammiFrancisco AGAPITO [facility] CPT-4: 97942 12/02/2010 ([id number]) OFFICE/OUTPATIENT VISIT, EST Sylvie BYRNE DO [employer] CPT-4: 58273 04/19/2010 ([id number]) OFFICE/OUTPATIENT VISIT, NHAN BYRNE DO [employer] CPT-4: 01157 04/14/2010 ([id number]) OFFICE/OUTPATIENT VISIT, NHAN BYRNE DO Rocket Raise CPT-4: 87887 09/01/2009 Plan of Care Planned Activity Notes Codes Status Date Visit Diagnosis Plan: Polyuria Discussion: patient on cipro and reports the burning is improved but continues to urinate frequently. is due for prostate check but due to multiple complaints, will send to urologist. patient is to rtc tomorrow for fasting labs including PSA. ICD-9 : 788.42 ICD-10 : R35.8 06/20/2019 Visit Diagnosis Plan: Enlarged testicle Discussion: st at ultrasound ordered of testicles to rule out torsion. ultrasound ordered of left inguinal area also due to palpable/reducible hernia. ICD-9 : 608.89 ICD-10 : N50.89 06/20/2019 [facility] [facility] 06/20/2019 Care Plan: US EXAM SCROTUM LOINC : 07357 -7 Pending 06/20/2019 Visit Diagnosis Plan: Acute contact dermatitis Discuss ion: skin scrape obtained due to recurrent issue. 4 mg dexamethasone given in office. prednisone prescribed to take as directed. instructed to change laundry detergent back to original and wash a week's worth of clothes in other detergent to see if problem improves. ICD-9 : 692.9 ICD-10 : L25.9 05/31/2019 App[facility] [facility] 05/31/2019 Patient Education: prednisone- OptimizeRX Coupon [id number] https://www.Format Dynamics.ServiceTrade/samplemd/resources/getResource/61/itx217no-8tg5-4u09-2j Completed 05/31/2019 Visit Diagnosis Plan: Acute contact dermatitis Discuss ion: Kenalog 40mg IM now Cover with [employer] Call in 1week on how doing Medrol Dose Pack ICD-9 : 692.9 ICD-10 : L25.9 05/17/2019 Appointment: Sylvie Byrne WPtel: [phone] [id number] ACUTE ILLNESS 05/17/2019 Patient Education: Medrol (Nicholas)- OptimizeRX Coupon [id number] https://www.Mercateo/sampleSkyword/resources/getResource/61/88xyiv65-5918-0u12-0v Completed 05/17/2019 Visit Diagnosis Plan: Abscess of chest wall Discussion : patient has large amount of induration still noted despite recent drainage and antibiotics. dr. najera's office was called and they were able to see patient today. patient was sent over there for possible surgery. ICD-9 : 682.2 ICD-10 : L02.213 01/25/2019 Appointment: Azra Bradley [address] [place], [place] [id number] FOLLOW UP 01/25/2019 Visit Diagnosis Plan: Abscess of chest wall Discussion : patient tolerated well. instructed patient to avoid neosporin until follow up to allow full drainage. instructed to shower daily and cleanse area with antibacterial soap and assist with drainage while in shower. keep area covered. culture was obtained and sent off for evaluation. clindamycin prescribed to take as directed and instructed to follow up in office monday. ICD-9 : 682.2 ICD-10 : L02.213 01/23/2019 Appointment: Azra Bradley [address] [place], [place] [id number] [facility] 01/23/2019 Patient Education: clindamycin HCl- OptimizeRX Coupon [id number] https://www.Format Dynamics.ServiceTrade/sampleSkyword/resources/getResource/61/m836k069-q47h-2ycv-04 Completed 01/23/2019 Appointment: Azra Bradley [address] [place], [place] [id number] CANCELED 01/16/2019 Visit Diagnosis Plan: Acute gastritis without bleeding Discussion: cdiff lab ordered on patient. flagyl sent out for patient to start due to symptoms and recently being on clindamycin. probiotics given to patient take daily as well. instructed patient to avoid small children, elderly, and anyone who is chronically ill. frequent hand washing and discussed high infectious rate of cdiff and patient verbalized understanding. ICD-9 : 535.00 ICD-10 : K29.00 10/31/2018 Visit Diagnosis Plan: Hyperlipidemia, unspecified Disc ussion: updated labs obtained. ICD-9 : 272.4 ICD-10 : E78.5 10/31/2018 Appointment: Azra Bradley [address] [place] [address] ACUTE ILLNESS 10/31/2018 Patient Education: High Blood Pressure Co mpleted 10/31/2018 Visit Diagnosis Plan: Acute gastritis without bleeding Discussion: cipro/flagyl prescribed to cover diverticulitis. instructed patient to increase fluid intake of water/gatorade to replenish hydration. bland diet for next few days to allow for bowel rest. avoid eating nuts/seeds. if coffee ground emesis develops, go to ED or if black stools develop, go to ED.if no improvement with antibiotics, call clinic. if no improvement with medications, informed patient he may need to have stool studies or updated imaging/scope. patient verbalized understanding. ICD-9 : 535.00 ICD-10 : K29.00 01/18/2018 Appointment: Azra Bradley [address] [place], [place] [id number] ACUTE ILLNESS 01/18/2018 Patient Education: Patient Medication Summary Completed 01/18/2018 Appointment: Sylvie Byrne WPtel: [phone] [facility] US LAB 03/29/2017 Patient Education: Patient Medication Summary Completed 03/29/2017 Visit Diagnosis Plan: Sebaceous cyst Discussion: follo w up in 10 days to have sutures removed from back. neosporin bid for a week to back and left eyelid and keep covered with bandaid to prevent damage to sutures. if any s/s infection, call office immediately. ICD-9 : 706.2 ICD-10 : L72.3 03/15/2017 Appointment: Azra Bradley [address] [place], [place] [phone] US OFFICE SURGERY 03/15/2017 Patient Education: Patient Medication Summary Completed 03/15/2017 Visit Diagnosis Plan: Pain in right knee Discussion: p atient sent for xray of right knee. tramadol prescribed to be taken tid prn. continue wearing knee brace. will review xray and may need MRI with ortho referral if no improvement. call with worsening symptoms. ICD-9 : 719.46 ICD-10 : M25.561 03/13/2017 Appointment: Azra Bradley [address] [place] [address] ACUTE ILLNESS 03/13/2017 Patient Education: Patient Medication Summary Completed 03/13/2017 Care Plan: X-RAY EXAM OF KNEE 1 OR 2 [place] : 65285-5 Pending 03/13/2017 Visit Diagnosis Plan: Pain in right leg Discussion: belgica barclay sent for stat ultrasound of lower extremity r/t pain/swelling and warmth. will notify him of results but instructed to take ibuprofen to assist with swelling and pain if not clot related. ICD-9 : 729.5 ICD-10 : M79.604 02/27/2017 Visit Diagnosis Plan: Sebaceous cyst Discussion: instr ucted to make follow up appt to have them removed. verbalized understanding. ICD-9 : 706.2 ICD-10 : L72.3 02/27/2017 Appointment: Azra Bradley 504 [facility] ACUTE ILLNESS 02/27/2017 Patient Education: Patient Medication Summary Completed 02/27/2017 Appointment: Katerina Sousa WPtel: [address] [place], [place] [phone] ACUTE ILLNESS 08/21/2015 Visit Plan: Has been off of Pravastatin. Will resume Pravastitin 20mg. and re- check labs in 3 months, Resume Lisinopril and Allopurinol Warm moist compresses to left chest lesion Complete doxycycline Return check after antibiotics completed if no improvement in lesion to left chest will refer for removal of nodular skin lesion upper right back. 03/31/2015 Appointment: Dagmar Ahmadi WPtel: [phone] [facility] 03/30 Confirmed ~sl FOLLOW UP 03/31/2015 Patient Education: Patient Medication Summary Completed 03/31/2015 Visit Plan: CBC, CMP, TSH, Free T4, Lipi d Panel, Uric Acid, PSA, EKG Urine culture today Increase fluids to >120cc's daily. Notify if flank pain increases. Resume Lisinopril 20 mg PO daily Resume Allopurinol 100 mg Ciprofloxacin 500 mg PO bid John appt. for follow-up Colonscopy - [place] 01/07/2015 Appointment: Dagmar Ahmadi WPtel: [address] [place] [address] 01/06 appointment confirmed cn Annual Well Visit 01/07/2015 Patient Education: Patient Medication Summary Completed 01/07/2015 Patient Education: [facility] - Saving Auto[employer]j - Lisinopril - 18-64 - Dynamic Portal ID Completed 01/07/2015 Appointment: Sylvie Byrne WPtel: [address] [place] [address] ACUTE ILLNESS 08/26/2014 Appointment: Dagmar Ahmadi WPtel: [address] [place] [address] ACUTE ILLNESS 04/15/2014 Patient Education: Patient Medication Summary Completed 04/15/2014 Appointment: Sylvie Byrne WPtel: [address] [place] [address] US LAB 12/11/2013 Patient Education: Patient Medication Summary Completed 12/11/2013 Visit Plan: Check CBC, CMP, TSH, Free T4 , Lipids, uric acid, PSA--pt will return in AM for fasting lab Finish acyclovir Discussed Zostavax down road 12/10/2013 Appointment: Sylvie Byrne WPtel: [address] [place] [address] 12/06 left message FOLLOW UP 12/10/2013 Patient Education: Patient Medication Summary Completed 12/10/2013 Visit Plan: Lisinopril 20mg daily Stress Reducers and trial of fluoxetine 10mg q am Proceed with colonoscopy Check fasting lab 05/02/2013 Appointment: Sylvie Byrne WPtel: [address] [place] [address] ACUTE ILLNESS 05/02/2013 Patient Education: Patient Medication Summary Completed 05/02/2013 Appointment: Sylvie Byrne WPtel: [address] [place], [place] [address] ACUTE ILLNESS 01/02/2013 Patient Education: Patient Medication Summary Completed 01/02/2013 Appointment: Liza Ragsdale WPtel: [address] [place], [place] [id number] ACUTE ILLNESS 10/10/2011 Patient Education: Patient Medication Summary Completed 10/10/2011 Appointment: Sylvie Byrne WPtel: [address] [place], [place] [phone] US LAB 09/15/2011 Patient Education: Patient Medication Summary Completed 09/15/2011 Visit Plan: Culturelle. Will focus on hy dration. Start with clear fluids and progress diet as tolerated. BRAT diet. Discussed that pt. has been utilizing Imodium since yesterday and reports some improvement. Order for C-diff/culture and blood (Via Jennifer) in case symptoms worsen over the weekend. Pt. will monitor for return of fever or diarrhea. Will seek re-eval if symptoms worsen or supervisor records change the weekend. 08/12/2011 Appointment: Liza Ragsdale WPtel: [address] [place] [address] ACUTE ILLNESS 08/12/2011 Patient Education: Patient Medication Summary Completed 08/12/2011 Visit Plan: Continue increased dose of a llopurinol and daily colcrys Recheck thyroid lab, uric acid and PSA in 3mos Will hold on NSAID at this time due to history of GERD 08/04/2011 Appointment: Sylvie Byrne WPtel: [address] [place], [place] [phone] FOLLOW UP 08/04/2011 Patient Education: Patient Medication Summary Completed 08/04/2011 Appointment: Sylvie Byrne WPtel: [address] [place], [place] [phone] US LAB 07/28/2011 Patient Education: Patient Medication Summary Completed 07/28/2011 Appointment: Sylvie Byrnetel: [address] [place], [place] [phone] US LAB 05/25/2011 Patient Education: Patient Medication Summary Completed 05/25/2011 Visit Plan: clotrimazole/betamethasone t opical to see if rash improves. Discussed that I would encourage to continue PenVK. (Dr. Menezes for recent dental). Pt. reports that he has stopped taking his colcrys as the prescription has run out.refil Fasting labs: CBC, CMP, uric acid, RA, WENDI, Lipid and PSA. Topical clotrimazole/betamethazsone for rash and will use benadryl at night. 05/24/2011 Appointment: Liza Ragsdale WPtel: [address] [place] [address] ACUTE ILLNESS 05/24/2011 Patient Education: Patient Medication Summary Completed 05/24/2011 Visit Plan: codeine/guif cough syrup and cefdinir are phoned to [facility]. Discussed fluids and rest. Pt. will notify if symptoms persist or worsen. 04/15/2011 Appointment: Liza Ragsdale WPtel: [address] [place] [address] ACUTE ILLNESS 04/15/2011 Patient Education: Patient Medication Summary Completed 04/15/2011 Appointment: Sylvie Byrne WPtel: [address] [place], [place] [phone] US LAB 02/01/2011 Patient Education: Patient Medication Summary Completed 02/01/2011 Visit Plan: Repeat clavicle x-ray in 6wk s Check bone density 01/13/2011 Appointment: Sylvie Byrne WPtel: [address] [place] [address] FOLLOW UP 01/13/2011 Patient Education: Patient Medication Summary Completed 01/13/2011 Visit Plan: Check right clavicle and alda ulder x-ray Continue Vimovo and flexeril 12/23/2010 Appointment: Sylvie Byrne WPtel: [address] [place], [place] [phone] FOLLOW UP 12/23/2010 Patient Education: Patient Medication Summary Completed 12/23/2010 Appointment: Sylvie Byrne WPtel: [address] [place] [address] ER Follow UP 12/15/2010 Patient Education: Patient Medication Summary Completed 12/15/2010 Visit Plan: uric acid, CBC, EBV titer. F eun oil. Blood pressure re-check 140/92. Pt. to start blood pressure meds and monitor daily. Will notify of BP if no improvement will add meds. Pt reports his has cuff/monitor at home. States he will come in in the next two weeks to have it monitored. Explained that no refils will be given if he does not come in for BP check. 12/02/2010 Appointment: Liza Ragsdale WPtel: [address] [place] [address] ACUTE ILLNESS 12/02/2010 Patient Education: Patient Medication Summary Completed 12/02/2010 Care Plan: ASSAY OF BLOOD/URIC ACID Pendi ng 12/02/2010 Care Plan: VCA AB G/M Pending 2010 Care Plan: EB GARY AG Pending 2010 Care Plan: EB NUCL AB Pending 2010 Appointment: Sylvie Byrne WPtel: [address] [place], [place] [phone] FOLLOW UP 11/18/2010 Visit Plan: benadryl 25 mg tab QHS. 12.5 mg tab every 8 hrs during the day. Pt. will notify if symptoms worsen. No facial edema present. 04/19/2010 Appointment: Liza Ragsdale WPtel: [address] [place], [place] [phone] US FOLLOW UP 04/19/2010 Patient Education: Patient Medication Summary Completed 04/19/2010 Visit Plan: Pt has used HCG with Dr. Andrew coburn. Pt is planning another round of HCG as his symptoms completely subsided after losing wt and attaining 170 lbs. Pt will fill Ranitidine if symptoms do not improve with weight loss. Nasonex sample given. Follow up with Viviana if no improvement. 04/14/2010 Appointment: Liza Ragsdale WPtel: [address] [place], [place] [phone] ACUTE ILLNESS 04/14/2010 Patient Education: Patient Medication Summary Completed 04/14/2010 Appointment: Liza Ragsdale WPtel: [address] [place], [place] [phone] ACUTE ILLNESS 03/12/2010 Appointment: Sylvie Byrne WPtel: [address] [place], [place] [phone] US LAB 09/14/2009 Patient Education: Patient Medication Summary Completed 09/14/2009 Appointment: Sylvie Byrne WPtel: [address] [place], [place] [phone] ACUTE ILLNESS 09/01/2009 Patient Education: Patient Medication Summary Completed 09/01/2009 Instructions Comment . Has been off of Pravastatin. Will res ume Pravastitin 20mg. and re-check labs in 3 months, Resume Lisinopril and Allopurinol Warm moist compresses to left chest lesion Complete doxycycline Return check after antibiotics completed if no improvement in lesion to left chest will refer for removal of nodular skin lesion upper right back. . CBC, CMP, TSH, Free T4, Lipid Panel, U debra Acid, PSA, EKG Urine culture today Increase fluids to >120cc's daily. Notify if flank pain increases. Resume Lisinopril 20 mg PO daily Resume Allopurinol 100 mg Ciprofloxacin 500 mg PO bid [facility] appt. for follow-up Colonscopy - [place] . Check CBC, CMP, TSH, Free T4, Lipids, uric acid, PSA--pt will return in AM for fasting lab Finish acyclovir Discussed Zostavax down road . Lisinopril 20mg daily Stress Reducers and trial of fluoxetine 10mg q am Proceed with colonoscopy Check fasting lab . Culturelle. Will focus on hydration. Start with clear fluids and progress diet as tolerated. BRAT diet. Discussed that pt. has been utilizing Imodium since yesterday and reports some improvement. Order for C-diff/culture and blood (Via Jennifer) in case symptoms worsen over the weekend. Pt. will monitor for return of fever or diarrhea. Will seek re- eval if symptoms worsen or supervisor records change the weekend. . Continue increased dose of allopurinol and daily colcrys Recheck thyroid lab, uric acid and PSA in 3mos Will hold on NSAID at this time due to history of GERD . clotrimazole/betamethasone topical to see if rash improves. Discussed that I would encourage to continue PenVK. (Dr. Menezes for recent dental). Pt. reports that he has stopped taking his colcrys as the prescription has run out.refil Fasting labs: CBC, CMP, uric acid, RA, WENDI, Lipid and PSA. Topical clotrimazole/betamethazsone for rash and will use benadryl at night. . codeine/guif cough syrup and cefdinir are phoned to [facility]. Discussed fluids and rest. Pt. will notify if symptoms persist or worsen. . Repeat clavicle x-ray in 6wks Check bone density . Check right clavicle and shoulder x-ra y Continue Vimovo and flexeril . uric acid, CBC, EBV titer. Fish oil. Blood pressure re-check 140/92. Pt. to start blood pressure meds and monitor daily. Will notify of BP if no improvement will add meds. Pt reports his has cuff/monitor at home. States he will come in in the next two weeks to have it monitored. Explained that no refils will be given if he does not come in for BP check. . benadryl 25 mg tab QHS. 12.5 mg tab e very 8 hrs during the day. Pt. will notify if symptoms worsen. No facial edema present. . Pt has used HCG with Dr. Quintana. Pt is planning another round of HCG as his symptoms completely subsided after losing wt and attaining 170 lbs. Pt will fill Ranitidine if symptoms do not improve with weight loss. Nasonex sample given. Follow up with Viviana if no improvement. Medical Equipment No Medical Equipment data Health Concerns Section Health Concerns data not found Goals Section Goals data not found Interventions Section Interventions data not found Health Status Evaluations/Outcomes Section Health Status Evaluations/Outcomes data not found Advance Directives No Advance Directive data
--- OUTSIDE RECORDS SUMMARY | 2019-10-17 10:30 | XMS REPORT | CCD ---
Author Author Renan Byrne D.O. Organization [facility] Address [address] [place] [address] Phone Care Team Providers Care Speech Language Specialist Name Role Phone Sylvie Byrne D.O., PP Unavailable CCM Unavailable Summary Purpose Interface Exchange Insurance Providers Payer name Policy type / Coverage type Covered constitution party ID Effective Begin Date Effective End Date WPS MEDICARE PART B [place] Medicare Part B [id number] Unknown [facility] Medicare Part B [id number] Unknown Family History Family History data not found Social History Social History Element Codes Description Effective Dates Tobacco history SNOMED CT: 297681505 Nonsmoker 12/02/2010 Allergies, Adverse Reactions, Alerts Substance [...] Start Date Stop Date Status Fill Instructions Cipro 500 mg tablet RxNorm: 218289 1 Tablet(s) Oral two times a day 06/20/2019 06/28/2019 Active Cipro 500 mg tablet RxNorm: 302100 1 Tablet(s) Oral two times a day 06/20/2019 06/19/2019 Inactive hydroxyzine HCl 25 mg tablet RxNorm: 958405 1 Tablet(s) Oral Q8 H as needed 06/14/2019 06/14/2019 Inactive Cipro 500 mg tablet RxNorm: 384526 1 Tablet(s) Oral two times a day 06/14/2019 06/19/2019 Inactive Cipro 500 mg tablet RxNorm: 409824 1 Tablet(s) Oral two times a day 06/14/2019 06/13/2019 Inactive hydroxyzine HCl 25 mg tablet RxNorm: 605153 1 Tablet(s) Oral Q8 H as needed 06/14/2019 06/13/2019 Inactive prednisone 20 mg tablet RxNorm: 024576 1 Tablet(s) Oral two latonia es a day 05/31/2019 06/05/2019 Inactive Elimite 5 % topical cream RxNorm: 726232 Application To pical QPM from head to toe 05/17/2019 07/16/2019 Active Medrol (Nicholas) 4 mg tablets in a dose pack RxNorm: 632174 6 Tablet(s) Oral QD --then as directed 05/17/2019 05/23/2019 Inactive Osteo Bi-Flex 250 mg-200 mg tablet RxNorm: 009034 2 Tablet(s) O ral QD 01/23/2019 No Stop Date Active clindamycin HCl 300 mg capsule RxNorm: 383737 2 Capsule (s) Oral three times a day 01/23/2019 01/30/2019 Inactive Flagyl 500 mg tablet RxNorm: 022491 1 Tablet(s) PO BID 10/31/2018 Inactive lisinopril 20 mg tablet RxNorm: 935439 1 Tablet(s) PO QD for bl ood pressure 09/13/2018 12/11/2018 Inactive allopurinol 100 mg tablet RxNorm: 493507 1 Tablet(s) PO QD 09/14/19 19 12/11/2018 Inactive Flagyl 500 mg tablet RxNorm: 611873 1 Tablet(s) PO BID 01/18/2018 Inactive Cipro 250 mg tablet RxNorm: 740835 1 Tablet(s) PO BID 01/18/201801/08 Inactive lisinopril 20 mg tablet RxNorm: 848897 1 Tablet(s) PO QD for bl ood pressure 11/06/2017 02/03/2018 Inactive allopurinol 100 mg tablet RxNorm: 300354 1 Tablet(s) PO QD 11/07/19 18 02/03/2018 Inactive allopurinol 100 mg tablet RxNorm: 492047 1 Tablet(s) PO QD 04/11/19 18 10/07/2017 Inactive lisinopril 20 mg tablet RxNorm: 353063 1 Tablet(s) PO QD for bl ood pressure 04/07/2017 11/05/2017 Inactive prednisone 20 mg tablet RxNorm: 307603 2 Tablet(s) PO QD 03/15/2017 1 05/18/2016 Inactive tramadol 50 mg tablet RxNorm: 948602 1-2 Tablet(s) PO TID as needed 03/13/2017 08/06/2017 Inactive Medrol (Nicholas) 4 mg tablets in a dose pack RxNorm: 531411 Tablet(s) PO As Directed 02/28/2017 08/01/2017 Inactive allopurinol 100 mg tablet RxNorm: 286974 1 Tablet(s) PO QD 04/11/19 17 04/11/2017 Inactive lisinopril 20 mg tablet RxNorm: 607076 1 Tablet(s) PO QD for bl ood pressure 04/11/2016 04/07/2017 Inactive pravastatin 20 mg tablet RxNorm: 812197 1 Tablet(s) PO QD 01/13/2016 02/26/2017 Inactive pravastatin 20 mg tablet RxNorm: 023873 TAKE 1 TABLET DAILY 016 01/13/2016 Inactive pravastatin 40 mg tablet RxNorm: 291108 1 Tablet(s) PO QD 03/31/2015 03/31/2015 Inactive pravastatin 20 mg tablet RxNorm: 632935 1 Tablet(s) PO QD 03/31/2015 06/28/2015 Inactive doxycycline hyclate 100 mg capsule RxNorm: 5517066 1 Capsule(s) PO BID 03/31/2015 04/09/2015 Inactive mupirocin 2 % topical ointment RxNorm: 329800 Apply TOP BID to affected lesions 03/31/2015 08/01/2017 Inactive pravastatin 40 mg tablet RxNorm: 210083 1 Tablet(s) PO QD 01/08/2015 03/30/2015 Inactive lisinopril 20 mg tablet RxNorm: 424277 1 Tablet(s) PO QD for bl ood pressure 01/07/2015 12/31/2015 Inactive allopurinol 100 mg tablet RxNorm: 736270 1 Tablet(s) PO QD 01/08/20 15 04/10/2016 Inactive ciprofloxacin 500 mg tablet RxNorm: 382767 1 Tablet(s) PO BID 01/0701/13/2015 Inactive doxycycline hyclate 100 mg capsule RxNorm: 2307951 1 Capsule(s) PO BID 04/15/2014 04/24/2014 Inactive fluoxetine 10 mg capsule RxNorm: 560680 1 Capsule(s) PO QAM 014 04/14/2014 Inactive lisinopril 20 mg tablet RxNorm: 217964 1 Tablet(s) PO QD for bl ood pressure 05/02/2013 04/26/2014 Inactive Cipro 500 mg tablet RxNorm: 078877 1 Tablet(s) PO BID 01/02/201312/10 Inactive Cipro 500 mg tablet RxNorm: 316984 1 Tablet(s) PO BID 01/02/201304/2012 Inactive doxycycline hyclate 100 mg Cap RxNorm: 335913 1 Capsule(s) PO BID 0 10/10/2011 10/19/2011 Inactive Culturelle 10 billion cell Cap RxNorm: 581917 1 Capsule(s) PO BID 0 08/12/2011 09/10/2011 Inactive Colcrys 0.6 mg Tab RxNorm: 072930 1 Tablet(s) PO BID 08/04/201111/30 Inactive allopurinol 100 mg Tab RxNorm: 420529 1 Tablet(s) PO BID 07/13/2011 0 08/03/2011 Inactive clotrimazole-betamethasone 1 %-0.05 % Topical Cream RxNorm: 971725 1 Application TOP BID 06/10/2011 06/23/2011 Inactive clotrimazole-betamethasone 1 %-0.05 % Topical Cream RxNorm: 403248 1 Application TOP BID 05/24/2011 06/06/2011 Inactive Colcrys 0.6 mg Tab RxNorm: 476439 1 Tablet(s) PO BID 05/24/201108/02 Inactive cefdinir 300 mg Cap RxNorm: 193736 1 Capsule(s) PO BID 04/15/2011 Inactive Daypro 600 mg Tab RxNorm: 157765 1 Tablet(s) PO BID 12/15/20102010 Inactive for pain Medrol (Nicholas) 4 mg Tabs in a Dose Pack RxNorm: 886002 Tablet(s) PO 0 12/09/2010 12/15/2010 Inactive as directed Colcrys 0.6 mg Tab RxNorm: 892513 1 Tablet(s) PO BID 12/06/201001/04 Inactive lisinopril-hydrochlorothiazide 20 mg-12.5 mg Tab RxNorm: 197 886 1 Tablet(s) PO QAM 12/02/2010 01/30/2011 Inactive ranitidine 150 mg tablet RxNorm: 9542841 1 Tablet(s) PO BID Pt will phone before filing this script. 04/14/2010 05/13/2010 Inactive allopurinol 100 mg Tab RxNorm: 041881 1 Tablet(s) PO BID 09/16/2009 0 11/14/2009 Inactive lisinopril-hydrochlorothiazide 20 mg-12.5 mg Tab RxNorm: 197 886 1 Tablet(s) PO QAM 06/23/2009 08/31/2009 Inactive ibuprofen 200 mg tablet RxNorm: 001883 4 Tablet(s) PO QAM No Start Da te Active Zithromax Z-Nicholas 250 mg Tab RxNorm: 145659 Tablet(s) PO as direc tenzin No Start Date 01/12/2011 Inactive Ultram Oral RxNorm: Oral No Start Date 01/01/2013 Inactive allopurinol 100 mg tablet RxNorm: 844136 1 Tablet(s) PO QD No Start Date 01/06/2015 Inactive pravastatin 40 mg tablet RxNorm: 850134 1 Tablet(s) PO QD No Start Date 01/07/2015 Inactive Naprosyn 500 mg tablet RxNorm: 594277 1 Tablet(s) PO BID No Start D ate 05/01/2013 Inactive azithromycin 250 mg tablet RxNorm: 454858 2 Tablet(s) P O QD take 2 tablets (500 mg) by oral route once daily for 1 day then 1 tablet (250 mg) by oral route once daily for 4 days No Start Date 01/12/2011 Inactive allopurinol 300 mg Tab RxNorm: 241496 1 Tablet(s) PO QD No Start Da te 01/01/2013 Inactive Colcrys 0.6 mg tablet RxNorm: 880164 1 Tablet(s) PO BID No Start Da te 05/01/2013 Inactive Medrol (Nicholas) 4 mg tablets in a dose pack RxNorm: 282565 Tablet(s) PO As Directed No Start Date 02/27/2017 Inactive hydrocodone 5 mg-acetaminophen 325 mg tablet RxNorm: 957864 1 Tablet(s) PO Q4H as needed for pain No Start Date 12/09/2013 Inactive ranitidine 150 mg Tab RxNorm: 3485908 1 Tablet(s) PO BID No Start D ate 04/13/2010 Inactive Allopurinol 100 mg Tab RxNorm: 347413 1 Tablet(s) PO BID No Start D ate 09/15/2009 Inactive coenzyme Q10 200 mg capsule RxNorm: 584143 1 Capsule(s) PO QD No St art Date 03/30/2015 Inactive Mobic 7.5 mg tablet RxNorm: 001500 1 Tablet(s) PO QD No Start Date Inactive Osteo Bi-Flex (5-Loxin) 1,500 mg-400 unit-100 mg tablet RxNo rm: 1 Tablet(s) PO BID No Start Date 03/30/2015 Inactive hydrocodone-acetaminophen 7.5 mg-325 mg Tab RxNorm: 544558 1-2 Tablet(s) PO Q4-6H No Start Date 08/03/2011 Inactive as needed for pa in Neurontin 300 mg capsule RxNorm: 817239 1 Capsule(s) PO QD No Start Date 12/09/2013 Inactive Medrol (Nicholas) 4 mg Tabs in a Dose Pack RxNorm: 022464 Tablet(s) PO N o Start Date 12/08/2010 Inactive as directed Vitamin D2 1,000 unit capsule RxNorm: 342718 1 Capsule(s) PO QD No Start Date 03/30/2015 Inactive Flexeril 10 mg Tab RxNorm: 245625 1 Tablet(s) PO TID No Start Date Inactive for spasm Medication Administered No Medication Administered data Immunizations No Immunization data Results Observation Observation Code Item Item Code Result Date S ervice Location C DIFF MOL [id number] C Diff Mol Int Negative 11/02/2018 Unk nown C Diff An [id number] C Diff Analyzer Indeterminate 9 Unknown GFR CALC [id number] GFR Non Afr Amr >60 mL/min 11/01/2018 Un known GFR CALC 4155087 GFR Afr Amr >60 mL/min 11/01/[address] LDL [id number] HDL CHOLESTEROL 46 mg/dL 11/01/[address] LDL 4349468 Cholesterol 198 mg/dL 11/01/[address] LDL Triglyceride 104 mg/dL 11/01/[address] LDL LDL Direct 158 mg/dL 11/01/[address] LDL NON-HDL Chol 152 mg/dL 11/01/2018 Unkno wn THYROID STIMULATING HORMONE 81159 TSH 1.276 uIU/mL 11/01/2018 Unknown COMPREHENSIVE METABOLIC 15838 AST 22 U/L 2018 Unknown COMPREHENSIVE METABOLIC 52199 ALT 17 U/L 2018 Unknown COMPREHENSIVE METABOLIC 99244 BUN 16 mg/dL 2018 Unknown COMPREHENSIVE METABOLIC 02268 ALBUMIN 4.3 g/dL 2018 Unknown COMPREHENSIVE METABOLIC 55442 CHLORIDE 103 mmol/L 11/01 Unknown COMPREHENSIVE METABOLIC 70426 Bili Total 0.9 mg/dL 11/01 Unknown COMPREHENSIVE METABOLIC 08805 ALK PHOS 62 U/L 2018 Unknown COMPREHENSIVE METABOLIC 53005 SODIUM 138 mmol/L 11/01 Unknown COMPREHENSIVE METABOLIC 78054 CREATININE 0.87 mg/dL 10/09 Unknown COMPREHENSIVE METABOLIC 33374 CALCIUM 9.2 mg/dL 2018 Unknown COMPREHENSIVE METABOLIC 84768 POTASSIUM 4.1 mmol/L 11/01 Unknown COMPREHENSIVE METABOLIC 31658 Total Protein 7.2 g/dL Unknown COMPREHENSIVE METABOLIC 70407 Glucose 81 mg/dL 2018 Unknown COMPREHENSIVE METABOLIC 90908 Bicarbonate 18 mmol/L 10/09 Unknown COMPREHENSIVE METABOLIC 32753 AGAP 17 mmol/L 2018 Unknown COMPLETE BLOOD COUNT 0199131 WBC 8.8 10e9/L 11/02/19 19 Unknown COMPLETE BLOOD COUNT [id number] RBC 4.54 10e12/L 2018 Unknown COMPLETE BLOOD COUNT 8546026 HEMOGLOBIN 14.4 g/dL 11/02/19 19 Unknown COMPLETE BLOOD COUNT 2552093 HEMATOCRIT 44.0 % 11/02/19 19 Unknown COMPLETE BLOOD COUNT 2827763 MCV 96.9 fL 9 Unknown COMPLETE BLOOD COUNT 0430550 MCH 31.7 pg 9 Unknown COMPLETE BLOOD COUNT 8759065 MCHC 32.7 g/dL 9 Unknown COMPLETE BLOOD COUNT 5152519 PLATELET COUNT 239 10e9/L Unknown COMPLETE BLOOD COUNT 9528824 Mean Plt Volume 10.5 fL Unknown COMPLETE BLOOD COUNT 2123216 NRBC Absolute 0.00 10e9/L Unknown COMPLETE BLOOD COUNT 2818829 Neut Auto 65.2 % 9 Unknown COMPLETE BLOOD COUNT 5957357 NRBC/100 WBC 0.0 2018 Unknown COMPLETE BLOOD COUNT 3457663 Lymph Auto 23.1 % 11/02/19 19 Unknown COMPLETE BLOOD COUNT 8177187 Payette Auto 9.5 % 9 Unknown COMPLETE BLOOD COUNT 6443355 RDW 12.2 % 9 Unknown COMPLETE BLOOD COUNT 4066149 Eos Auto 1.7 % 9 Unknown COMPLETE BLOOD COUNT 3135223 Baso Auto 0.3 % 9 Unknown COMPLETE BLOOD COUNT 9673382 Neutrophil Abs 5.73 10e9/L Unknown COMPLETE BLOOD COUNT 0994589 Imm Gran Auto 0.2 % 11/01 Unknown COMPLETE BLOOD COUNT 6881437 Lymphocyte Abs 2.03 10e9/L Unknown COMPLETE BLOOD COUNT [id number] Monocyte Abs 0.84 10e9/L 10/09 Unknown COMPLETE BLOOD COUNT 7127516 Eosinophil Abs 0.15 10e9/L Unknown COMPLETE BLOOD COUNT 9128084 RDW-SD 43.4 fL 9 Unknown COMPLETE BLOOD COUNT 2257712 Basophil Abs 0.03 10e9/L 10/09 Unknown COMPLETE BLOOD COUNT [id number] Imm Gran Abs 0.02 10e9/L 10/09 Unknown COMPREHENSIVE METABOLIC 29511 AST 17 U/L 2016 Unknown COMPREHENSIVE METABOLIC 60518 ALT 16 U/L 2016 Unknown COMPREHENSIVE METABOLIC 13414 BUN 15 mg/dL 2016 Unknown COMPREHENSIVE METABOLIC 59565 ALBUMIN 4.4 g/dL 2016 Unknown COMPREHENSIVE METABOLIC 52008 CHLORIDE 104 mmol/L 03/29 Unknown COMPREHENSIVE METABOLIC 17784 Bili Total 0.5 mg/dL 03/29 Unknown COMPREHENSIVE METABOLIC 13676 ALK PHOS 56 U/L 2016 Unknown COMPREHENSIVE METABOLIC 15778 SODIUM 139 mmol/L 03/29 Unknown COMPREHENSIVE METABOLIC 17143 CREATININE 0.88 mg/dL 03/11 Unknown COMPREHENSIVE METABOLIC 48158 CALCIUM 9.8 mg/dL 2016 Unknown COMPREHENSIVE METABOLIC 53614 POTASSIUM 4.2 mmol/L 03/29 Unknown COMPREHENSIVE METABOLIC 36420 Total Protein 6.8 g/dL Unknown COMPREHENSIVE METABOLIC 38745 Glucose 100 mg/dL 2016 Unknown COMPREHENSIVE METABOLIC 56214 Bicarbonate 30 mmol/L 03/11 Unknown COMPREHENSIVE METABOLIC 85828 AGAP 5 mmol/L 2016 Unknown THYROID STIMULATING HORMONE 76518 TSH 1.077 uIU/mL 03/29/2017 Unknown URIC ACID 35027 URIC ACID 5.2 mg/dL 03/29/2017 Unknown FREE T4 44465 T4 Free 1.04 ng/dL 03/29/2017 Unknown ERYTHROCYTE SEDIMENTATION RATE 41811 Sed Rate 21 mm/hr 03/29/2017 Unknown COMPLETE BLOOD COUNT 7578895 WBC 5.9 10e9/L 03/29/20 17 Unknown COMPLETE BLOOD COUNT [id number] RBC 4.52 10e12/L 2016 Unknown COMPLETE BLOOD COUNT 0651593 HEMOGLOBIN 14.6 g/dL 03/29/20 17 Unknown COMPLETE BLOOD COUNT 0570525 HEMATOCRIT 44.7 % 03/29/20 17 Unknown COMPLETE BLOOD COUNT 7684346 MCV 98.9 fL 7 Unknown COMPLETE BLOOD COUNT 0353274 MCH 32.3 pg 7 Unknown COMPLETE BLOOD COUNT 2169959 MCHC 32.7 g/dL 7 Unknown COMPLETE BLOOD COUNT 1729188 PLATELET COUNT 262 10e9/L Unknown COMPLETE BLOOD COUNT 2068480 Mean Plt Volume 10.1 fL Unknown COMPLETE BLOOD COUNT 2927819 Neut Auto 44.2 % 7 Unknown COMPLETE BLOOD COUNT [id number] Lymph Auto 41.5 % 03/29/20 17 Unknown COMPLETE BLOOD COUNT 8831806 Payette Auto 11.2 % 7 Unknown COMPLETE BLOOD COUNT 7502146 RDW 12.3 % 7 Unknown COMPLETE BLOOD COUNT 9228004 Eos Auto 2.6 % 7 Unknown COMPLETE BLOOD COUNT 6312777 Baso Auto 0.5 % 7 Unknown COMPLETE BLOOD COUNT 5463716 Neutrophil Abs 2.61 10e9/L Unknown COMPLETE BLOOD COUNT 4548744 Lymphocyte Abs 2.45 10e9/L Unknown COMPLETE BLOOD COUNT 8513821 Monocyte Abs 0.66 10e9/L 03/11 Unknown COMPLETE BLOOD COUNT 3237727 Eosinophil Abs 0.15 10e9/L Unknown COMPLETE BLOOD COUNT 2650185 RDW-SD 43.7 fL 7 Unknown COMPLETE BLOOD COUNT [id number] Basophil Abs 0.03 10e9/L 03/11 Unknown LIPID GROUP 22722 Cholesterol 248 mg/dL 03/29/2017 Unkno wn LIPID GROUP 51639 Triglyceride 87 mg/dL 03/29/2017 Unkn own [facility] 27722 HDL CHOLESTEROL 49 mg/dL 03/29/2017 U nknown L[facility] 82305 Chol/HDL Ratio 5.06 ratio 03/29/2017 U nknown L[facility] GROUP 34955 NON-HDL Chol 199 mg/dL 03/29/2017 Unkn own [facility] GROUP 82915 LDL Cholesterol 182 mg/dL 03/29/2017 U nknown GFR CALC 3274264 GFR Non Afr Amr >60 mL/min 03/29/2017 Un known GFR CALC 9784992 GFR Afr Amr >60 mL/min 03/29/2017 Unknow n HIV AG/AB 5574011 HIV Ag/Ab Non-Reactive 03/15/2017 Unkno wn VIRAL HEPATITIS PROFILE #2 29293 Hep A IgM Non-Reactive 03/15/2017 Unknown VIRAL HEPATITIS PROFILE #2 57827 Hep B Core IgM Non-Reac tive 03/15/2017 Unknown VIRAL HEPATITIS PROFILE #2 13785 Hepatitis C Ab Non-Reac tive 03/15/2017 Unknown VIRAL HEPATITIS PROFILE #2 86529 Hep Bs Ag Non-Reactive 03/15/2017 Unknown COMPREHENSIVE METABOLIC 10528 AST 23 U/L 2014 Unknown COMPREHENSIVE METABOLIC 74323 ALT 21 IU/L 2014 Unknown COMPREHENSIVE METABOLIC 62234 BUN 13 MG/DL 2014 Unknown COMPREHENSIVE METABOLIC 33473 ALBUMIN 4.3 GM/DL 2014 Unknown COMPREHENSIVE METABOLIC 77935 CHLORIDE 105 MMOL/L 01/07 Unknown COMPREHENSIVE METABOLIC 73619 BILI TOT 0.7 MG/DL 2014 Unknown COMPREHENSIVE METABOLIC 78490 ALK PHOS 51 U/L 2014 Unknown COMPREHENSIVE METABOLIC 04911 SODIUM 139 MMOL/L 01/07 Unknown COMPREHENSIVE METABOLIC 70568 CREATININE 0.85 MG/DL 12/11 Unknown COMPREHENSIVE METABOLIC 46557 CALCIUM 9.5 MG/DL 2014 Unknown COMPREHENSIVE METABOLIC 36232 POTASSIUM 4.4 MMOL/L 01/07 Unknown COMPREHENSIVE METABOLIC 02112 PROT TOT 6.7 GM/DL 2014 Unknown COMPREHENSIVE METABOLIC 18094 Glucose 100 MG/DL 2014 Unknown COMPREHENSIVE METABOLIC 50068 BICARB 27 MMOL/L 2014 Unknown COMPREHENSIVE METABOLIC 69573 ANION GAP 7 MEQ/L 2014 Unknown THYROID STIMULATING HORMONE 94498 TSH 0.900 uIU/ML 01/07/2015 Unknown COMPLETE BLOOD COUNT 3933808 WBC 4.9 10e9/L 01/08/20 15 Unknown COMPLETE BLOOD COUNT 5139270 RBC 4.71 10e12/L 2014 Unknown COMPLETE BLOOD COUNT 1248744 HGB 15.3 g/dL 5 Unknown COMPLETE BLOOD COUNT 5139377 HCT DET 46.1 % 5 Unknown COMPLETE BLOOD COUNT 6685350 MCV 97.9 fL 5 Unknown COMPLETE BLOOD COUNT 5863429 MCH 32.5 pg 5 Unknown COMPLETE BLOOD COUNT 4998787 MCHC 33.2 g/dL 5 Unknown COMPLETE BLOOD COUNT 6309137 PLT 227 10e9/L 01/08/20 15 Unknown COMPLETE BLOOD COUNT 3422331 MPV 10.9 fL 5 Unknown COMPLETE BLOOD COUNT 9745887 VERONIQUE % 53.0 % 5 Unknown COMPLETE BLOOD COUNT 7590613 LY % 35.8 % 5 Unknown COMPLETE BLOOD COUNT 2494849 MON % 8.6 % 5 Unknown COMPLETE BLOOD COUNT 9591413 EOS % 2.2 % 5 Unknown COMPLETE BLOOD COUNT 6254745 BASO % 0.4 % 5 Unknown COMPLETE BLOOD COUNT 7683984 RDW 12.9 % 5 Unknown COMPLETE BLOOD COUNT 5528060 ABS VERONIQUE 2.60 10e9/L 015 Unknown COMPLETE BLOOD COUNT 8616025 ABS LYMPH 1.75 10e9/L 015 Unknown COMPLETE BLOOD COUNT 5986935 ABS MONO 0.42 10e9/L 015 Unknown COMPLETE BLOOD COUNT 2706463 ABS EOS 0.11 10e9/L 015 Unknown COMPLETE BLOOD COUNT 6278285 ABS BASO 0.02 10e9/L 015 Unknown COMPLETE BLOOD COUNT 5732966 RDW-SD 45.7 fL 5 Unknown URIC ACID 01480 URIC ACID 6.7 MG/DL 01/07/2015 Unknown LIPID GROUP 19653 HDL TEST 52 MG/DL 01/07/2015 Unknown L[facility] GROUP 72766 TRIG 158 MG/DL 01/07/2015 Unknown [facility] 49169 TEST LDL 157 MG/DL 01/07/2015 Unknown L[facility] GROUP 53812 CHOL 241 MG/DL 01/07/2015 Unknown L[facility] GROUP 18293 RCHOL/HDL 4.63 RATIO 01/07/2015 Unknow n L[facility] GROUP 92194 NON-HDL CH 189 MG/DL 01/07/2015 Unknow n GFR CALC 6038164 GFR AA >60 ML/MIN 01/07/2015 Unknown GFR CALC 1026211 GFR NON-AA >60 ML/MIN 01/07/2015 Unknown PSA EQUIMOLAR JONATAN 94722 PSA EQ 2.18 NG/ML 5 Unknown FREE T4 38205 FREE T4 1.04 NG/DL 01/07/2015 Unknown GFR CALC 0045721 GFR AA >60 ML/MIN 12/11/2013 Unknown GFR CALC 0126701 GFR NON-AA >60 ML/MIN 12/11/2013 Unknown LIPID GROUP 74056 HDL TEST 54 MG/DL 12/11/2013 Unknown LIPID GROUP 47265 TRIG 81 MG/DL 12/11/2013 Unknown LIPID GROUP 77510 TEST LDL 185 MG/DL 12/11/2013 Unknown LIPID GROUP 71090 CHOL 255 MG/DL 12/11/2013 Unknown LIPID GROUP 39375 RCHOL/HDL 4.72 RATIO 12/11/2013 Unknow n LIPID GROUP 55806 NON-HDL CH 201 MG/DL 12/11/2013 Unknow n URIC ACID 17146 URIC ACID 7.1 MG/DL 12/11/2013 Unknown PSA EQUIMOLAR JONATAN 20028 PSA EQ 3.80 NG/ML 4 Unknown COMPLETE BLOOD COUNT 4277654 WBC 5.9 10e9/L 12/12/19 14 Unknown COMPLETE BLOOD COUNT 0516278 RBC 4.40 10e12/L 2013 Unknown COMPLETE BLOOD COUNT 7061455 HGB 14.5 g/dL 4 Unknown COMPLETE BLOOD COUNT 6379884 HCT DET 43.6 % 4 Unknown COMPLETE BLOOD COUNT 9254745 MCV 99.1 fL 4 Unknown COMPLETE BLOOD COUNT 0730943 MCH 33.0 pg 4 Unknown COMPLETE BLOOD COUNT 3846644 MCHC 33.3 g/dL 4 Unknown COMPLETE BLOOD COUNT 9198667 PLT 289 10e9/L 12/12/19 14 Unknown COMPLETE BLOOD COUNT 3384092 MPV 10.2 fL 4 Unknown COMPLETE BLOOD COUNT 3881011 VERONIQUE % 47.9 % 4 Unknown COMPLETE BLOOD COUNT 1242258 LY % 40.6 % 4 Unknown COMPLETE BLOOD COUNT 3603731 MON % 8.8 % 4 Unknown COMPLETE BLOOD COUNT 1913491 EOS % 2.2 % 4 Unknown COMPLETE BLOOD COUNT 9557241 BASO % 0.5 % 4 Unknown COMPLETE BLOOD COUNT 6851114 RDW 12.9 % 4 Unknown COMPLETE BLOOD COUNT 6051771 ABS VERONIQUE 2.83 10e9/L 014 Unknown COMPLETE BLOOD COUNT 2624792 ABS LYMPH 2.40 10e9/L 014 Unknown COMPLETE BLOOD COUNT 6790604 ABS MONO 0.52 10e9/L 014 Unknown COMPLETE BLOOD COUNT 1086516 ABS EOS 0.13 10e9/L 014 Unknown COMPLETE BLOOD COUNT 3866856 ABS BASO 0.03 10e9/L 014 Unknown COMPLETE BLOOD COUNT 4401680 RDW-SD 45.7 fL 4 Unknown THYROID STIMULATING HORMONE 73811 TSH 1.013 uIU/ML 12/11/2013 Unknown COMPREHENSIVE METABOLIC 75670 AST 20 U/L 2013 Unknown COMPREHENSIVE METABOLIC 37884 ALT 16 IU/L 2013 Unknown COMPREHENSIVE METABOLIC 29269 BUN 17 MG/DL 2013 Unknown COMPREHENSIVE METABOLIC 45257 ALBUMIN 4.6 GM/DL 2013 Unknown COMPREHENSIVE METABOLIC 76692 CHLORIDE 107 MMOL/L 12/11 Unknown COMPREHENSIVE METABOLIC 99541 BILI TOT 0.7 MG/DL 2013 Unknown COMPREHENSIVE METABOLIC 47677 ALK PHOS 53 U/L 2013 Unknown COMPREHENSIVE METABOLIC 22748 SODIUM 140 MMOL/L 12/11 Unknown COMPREHENSIVE METABOLIC 32612 CREATININE 0.84 MG/DL 06/2013 Unknown COMPREHENSIVE METABOLIC 84174 CALCIUM 9.7 MG/DL 2013 Unknown COMPREHENSIVE METABOLIC 70511 POTASSIUM 4.6 MMOL/L 12/11 Unknown COMPREHENSIVE METABOLIC 81659 PROT TOT 6.9 GM/DL 2013 Unknown COMPREHENSIVE METABOLIC 86951 Glucose 97 MG/DL 2013 Unknown COMPREHENSIVE METABOLIC 39923 BICARB 25 MMOL/L 2013 Unknown COMPREHENSIVE METABOLIC 95627 ANION GAP 8 MEQ/L 2013 Unknown FREE T4 42938 FREE T4 1.11 NG/DL 12/11/2013 Unknown ASSAY OF CREATININE 35031 CREATININE 0.98 MG/DL 09/15/19 12 Unknown URIC ACID 34641 URIC ACID 4.9 MG/DL 09/15/2011 Unknown GFR CALC 5952952 GFR AA >60 ML/MIN 09/15/2011 Unknown GFR CALC 8639924 GFR NON-AA >60 ML/MIN 09/15/2011 Unknown THYROID STIMULATING HORMONE 92603 TSH 1.687 uIU/ML 08/01/2011 Unknown FREE T4 13120 FREE T4 0.96 NG/DL 08/01/2011 Unknown SJOGRENS 4940758 SJOGRN A <20 EU/ML 08/01/2011 Unknown SJOGRENS 2301886 SJOGRN B <20 EU/ML 08/01/2011 Unknown SJOGRENS 9688117 NONHIS INT SEE BELO 08/01/2011 Unknown THYRO PERX 9383167 THYRO PERX 175.34 UNITS 07/30/2011 Unkn own DNA AB 5999200 DNA AB 32 IU/ML 07/29/2011 Unknown TITER WENDI 6795505 TITR WENDI 1:160 07/29/2011 Unknown TITER WENDI 5246087 PATTERN NUCLEOLR 07/29/2011 Unknown ANTINUCLEAR ANTIBODY SCREEN 89433 WENDI SCR POSITIVE Unknown COMPREHENSIVE METABOLIC 01292 AST 23 U/L 2011 Unknown COMPREHENSIVE METABOLIC 10864 ALT 26 IU/L 2011 Unknown COMPREHENSIVE METABOLIC 67306 BUN 18 MG/DL 2011 Unknown COMPREHENSIVE METABOLIC 52618 ALBUMIN 4.6 GM/DL 2011 Unknown COMPREHENSIVE METABOLIC 71391 CHLORIDE 105 MMOL/L 07/27 Unknown COMPREHENSIVE METABOLIC 22013 BILI TOT 0.5 MG/DL 2011 Unknown COMPREHENSIVE METABOLIC 13515 ALK PHOS 63 U/L 2011 Unknown COMPREHENSIVE METABOLIC 19471 SODIUM 138 MMOL/L 07/27 Unknown COMPREHENSIVE METABOLIC 54821 CREATININE 0.92 MG/DL 07/09 Unknown COMPREHENSIVE METABOLIC 65698 CALCIUM 9.4 MG/DL 2011 Unknown COMPREHENSIVE METABOLIC 63169 POTASSIUM 3.9 MMOL/L 07/27 Unknown COMPREHENSIVE METABOLIC 24111 PROT TOT 6.7 GM/DL 2011 Unknown COMPREHENSIVE METABOLIC 32282 Glucose 101 MG/DL 2011 Unknown COMPREHENSIVE METABOLIC 17857 BICARB 24 MMOL/L 2011 Unknown COMPREHENSIVE METABOLIC 18813 ANION GAP 9 MEQ/L 2011 Unknown GFR CALC 1436753 GFR AA >60 ML/MIN 07/28/2011 Unknown GFR CALC 5294513 GFR NON-AA >60 ML/MIN 07/28/2011 Unknown ERYTHROCYTE SEDIMENTATION RATE 36275 ESR 2 MM/HR 07/28/2011 Unknown URIC ACID 54709 URIC ACID 5.8 MG/DL 07/28/2011 Unknown C-REACTIVE PROTEIN (CRP) QUANT 18687 CRP 0.2 MG/DL 07/28/2011 Unknown TITER WENDI [id number] TITR WENDI 1:160 05/26/2011 Unknown TITER WENDI [id number] PATTERN NUCLEOLR 05/26/2011 Unknown RA FACTOR 68136 RA FACTOR <20.0 IU/ML 05/26/2011 Unknown ANTINUCLEAR ANTIBODY SCREEN 48555 WENDI SCR POSITIVE Unknown URIC ACID 46383 URIC ACID 8.7 MG/DL 05/25/2011 Unknown PSA EQUIMOLAR JONATAN 99004 PSA EQ 2.79 NG/ML 2 Unknown LIPID GROUP 53893 HDL TEST 47 MG/DL 05/25/2011 Unknown LIPID GROUP 68184 TRIG 198 MG/DL 05/25/2011 Unknown LIPID GROUP 26350 TEST LDL 180 MG/DL 05/25/2011 Unknown LIPID GROUP 98428 CHOL 267 MG/DL 05/25/2011 Unknown LIPID GROUP 94303 RCHOL/HDL 5.68 RATIO 05/25/2011 Unknow n COMPREHENSIVE METABOLIC 49018 AST 21 U/L 2011 Unknown COMPREHENSIVE METABOLIC 54685 ALT 21 IU/L 2011 Unknown COMPREHENSIVE METABOLIC 73935 BUN 16 MG/DL 2011 Unknown COMPREHENSIVE METABOLIC 14970 ALBUMIN 4.4 GM/DL 2011 Unknown COMPREHENSIVE METABOLIC 40303 CHLORIDE 105 MMOL/L 05/25 Unknown COMPREHENSIVE METABOLIC 09988 BILI TOT 0.7 MG/DL 2011 Unknown COMPREHENSIVE METABOLIC 16202 ALK PHOS 60 U/L 2011 Unknown COMPREHENSIVE METABOLIC 55957 SODIUM 139 MMOL/L 05/25 Unknown COMPREHENSIVE METABOLIC 31546 CREATININE 0.92 MG/DL 05/11 Unknown COMPREHENSIVE METABOLIC 73345 CALCIUM 9.4 MG/DL 2011 Unknown COMPREHENSIVE METABOLIC 35506 POTASSIUM 4.1 MMOL/L 05/25 Unknown COMPREHENSIVE METABOLIC 85849 PROT TOT 7.0 GM/DL 2011 Unknown COMPREHENSIVE METABOLIC 74355 Glucose 108 MG/DL 2011 Unknown COMPREHENSIVE METABOLIC 74259 BICARB 25 MMOL/L 2011 Unknown COMPREHENSIVE METABOLIC 51986 ANION GAP 9 MEQ/L 2011 Unknown GFR CALC [id number] GFR AA >60 ML/MIN 05/25/2011 Unknown GFR CALC [id number] GFR NON-AA >60 ML/MIN 05/25/2011 Unknown COMPLETE BLOOD COUNT 11312 WBC 5.6 10e9/L 05/25/19 12 Unknown COMPLETE BLOOD COUNT 25953 RBC 5.01 10e12/L 2011 Unknown COMPLETE BLOOD COUNT 64765 HGB 15.8 g/dL 2 Unknown COMPLETE BLOOD COUNT 45234 HCT DET 46.1 % 2 Unknown COMPLETE BLOOD COUNT 29670 MCV 92.0 fL 2 Unknown COMPLETE BLOOD COUNT 15629 MCH 31.5 pg 2 Unknown COMPLETE BLOOD COUNT 37120 MCHC 34.3 g/dL 2 Unknown COMPLETE BLOOD COUNT 15667 PLT 246 10e9/L 05/25/19 12 Unknown COMPLETE BLOOD COUNT 39539 MPV 10.3 fL 2 Unknown COMPLETE BLOOD COUNT 26511 VERONIQUE % 47.1 % 2 Unknown COMPLETE BLOOD COUNT 12081 LY % 41.0 % 2 Unknown COMPLETE BLOOD COUNT 21116 MON % 8.9 % 2 Unknown COMPLETE BLOOD COUNT 04245 EOS % 2.5 % 2 Unknown COMPLETE BLOOD COUNT 51166 BASO % 0.5 % 2 Unknown COMPLETE BLOOD COUNT 97803 RDW 12.7 % 2 Unknown COMPLETE BLOOD COUNT 32916 ABS VERONIQUE 2.64 10e9/L 012 Unknown COMPLETE BLOOD COUNT 21123 ABS LYMPH 2.30 10e9/L 012 Unknown COMPLETE BLOOD COUNT 40547 ABS MONO 0.50 10e9/L 012 Unknown COMPLETE BLOOD COUNT 04598 ABS EOS 0.14 10e9/L 012 Unknown COMPLETE BLOOD COUNT 56832 ABS BASO 0.03 10e9/L 012 Unknown COMPLETE BLOOD COUNT 23638 RDW-SD 41.3 fL 2 Unknown COMPREHENSIVE METABOLIC 39305 AST 18 U/L 2010 Unknown COMPREHENSIVE METABOLIC 77098 ALT 14 IU/L 2010 Unknown COMPREHENSIVE METABOLIC 12365 BUN 12 MG/DL 2010 Unknown COMPREHENSIVE METABOLIC 53052 ALBUMIN 4.6 GM/DL 2010 Unknown COMPREHENSIVE METABOLIC 73461 CHLORIDE 102 MMOL/L 02/01 Unknown COMPREHENSIVE METABOLIC 80310 BILI TOT 0.6 MG/DL 2010 Unknown COMPREHENSIVE METABOLIC 57793 ALK PHOS 66 U/L 2010 Unknown COMPREHENSIVE METABOLIC 76061 SODIUM 139 MMOL/L 02/01 Unknown COMPREHENSIVE METABOLIC 87216 CREATININE 0.92 MG/DL 01/09 Unknown COMPREHENSIVE METABOLIC 71456 CALCIUM 9.8 MG/DL 2010 Unknown COMPREHENSIVE METABOLIC 66683 POTASSIUM 4.1 MMOL/L 02/01 Unknown COMPREHENSIVE METABOLIC 43678 PROT TOT 7.0 GM/DL 2010 Unknown COMPREHENSIVE METABOLIC 92109 Glucose 101 MG/DL 2010 Unknown COMPREHENSIVE METABOLIC 55471 BICARB 25 MMOL/L 2010 Unknown COMPREHENSIVE METABOLIC 54863 ANION GAP 12 MEQ/L 2010 Unknown GFR CALC [id number] GFR AA >60 ML/MIN 02/01/2011 Unknown GFR CALC 3165047 GFR NON-AA >60 ML/MIN 02/01/2011 Unknown LIPID GROUP 38442 HDL TEST 44 MG/DL 02/01/2011 Unknown LIPID GROUP 00029 TRIG 157 MG/DL 02/01/2011 Unknown LIPID GROUP 72226 TEST LDL 193 MG/DL 02/01/2011 Unknown LIPID GROUP 58198 CHOL 268 MG/DL 02/01/2011 Unknown LIPID GROUP 35962 RCHOL/HDL 6.09 RATIO 02/01/2011 Unknow n FREE T4 61615 FREE T4 1.04 NG/DL 02/01/2011 Unknown COMPLETE BLOOD COUNT 68086 WBC 6.4 10e9/L 02/02/20 11 Unknown COMPLETE BLOOD COUNT 81379 RBC 4.56 10e12/L 2010 Unknown COMPLETE BLOOD COUNT 99105 HGB 14.4 g/dL 1 Unknown COMPLETE BLOOD COUNT 91011 HCT DET 43.0 % 1 Unknown COMPLETE BLOOD COUNT 22249 MCV 94.3 fL 1 Unknown COMPLETE BLOOD COUNT 30824 MCH 31.6 pg 1 Unknown COMPLETE BLOOD COUNT 41851 MCHC 33.5 g/dL 1 Unknown COMPLETE BLOOD COUNT 47468 PLT 300 10e9/L 02/02/20 11 Unknown COMPLETE BLOOD COUNT 66529 MPV 9.9 fL 1 Unknown COMPLETE BLOOD COUNT 64018 VERONIQUE % 38.5 % 1 Unknown COMPLETE BLOOD COUNT 66343 LY % 49.1 % 1 Unknown COMPLETE BLOOD COUNT 18287 MON % 10.1 % 1 Unknown COMPLETE BLOOD COUNT 05853 EOS % 1.7 % 1 Unknown COMPLETE BLOOD COUNT 20259 BASO % 0.6 % 1 Unknown COMPLETE BLOOD COUNT 84573 RDW 15.1 % 1 Unknown COMPLETE BLOOD COUNT 89825 ABS VERONIQUE 2.46 10e9/L 011 Unknown COMPLETE BLOOD COUNT 59236 ABS LYMPH 3.14 10e9/L 011 Unknown COMPLETE BLOOD COUNT 21591 ABS MONO 0.65 10e9/L 011 Unknown COMPLETE BLOOD COUNT 55795 ABS EOS 0.11 10e9/L 011 Unknown COMPLETE BLOOD COUNT 54473 ABS BASO 0.04 10e9/L 011 Unknown COMPLETE BLOOD COUNT 25409 RDW-SD 50.6 fL 1 Unknown THYROID STIMULATING HORMONE 79610 TSH 1.128 uIU/ML 02/01/2011 Unknown PSA EQUIMOLAR JONATAN 08253 PSA EQ 3.83 NG/ML 1 Unknown VCA AB G/M 4017920 EBV G VCA 3.34 12/03/2010 Unknown VCA AB G/M 6450746 EBV M VCA 0.12 12/03/2010 Unknown EB GARY AG [id number] EB GARY AG 0.47 12/03/2010 Unknown EB NUCL AB [id number] EB NUCL AB 3.72 12/03/2010 Unknown COMPLETE BLOOD COUNT 77583 WBC 8.0 10e9/L 12/03/19 11 Unknown COMPLETE BLOOD COUNT 31175 RBC 4.93 10e12/L 2010 Unknown COMPLETE BLOOD COUNT 02971 HGB 15.7 g/dL 1 Unknown COMPLETE BLOOD COUNT 08673 HCT DET 45.4 % 1 Unknown COMPLETE BLOOD COUNT 24325 MCV 92.1 fL 1 Unknown COMPLETE BLOOD COUNT 47840 MCH 31.8 pg 1 Unknown COMPLETE BLOOD COUNT 86698 MCHC 34.6 g/dL 1 Unknown COMPLETE BLOOD COUNT 40996 PLT 248 10e9/L 12/03/19 11 Unknown COMPLETE BLOOD COUNT 43011 MPV 10.4 fL 1 Unknown COMPLETE BLOOD COUNT 39811 VERONIQUE % 74.0 % 1 Unknown COMPLETE BLOOD COUNT 66486 LY % 19.6 % 1 Unknown COMPLETE BLOOD COUNT 46438 MON % 5.2 % 1 Unknown COMPLETE BLOOD COUNT 33147 EOS % 1.1 % 1 Unknown COMPLETE BLOOD COUNT 15892 BASO % 0.1 % 1 Unknown COMPLETE BLOOD COUNT 71384 RDW 12.5 % 1 Unknown COMPLETE BLOOD COUNT 42390 ABS VERONIQUE 5.92 10e9/L 011 Unknown COMPLETE BLOOD COUNT 43455 ABS LYMPH 1.57 10e9/L 011 Unknown COMPLETE BLOOD COUNT 45011 ABS MONO 0.42 10e9/L 011 Unknown COMPLETE BLOOD COUNT 99575 ABS EOS 0.09 10e9/L 011 Unknown COMPLETE BLOOD COUNT 27235 ABS BASO 0.01 10e9/L 011 Unknown COMPLETE BLOOD COUNT 25380 RDW-SD 41.1 fL 1 Unknown URIC ACID 42399 URIC ACID 9.3 MG/DL 12/02/2010 Unknown Procedures Procedure Codes Date URINALYSIS NONAUTO W/O SCOPE CPT-4: 65458 06/20/2019 URINE CULTURE/ COLONY COUNT CPT-4: 10115 06/20/2019 DEXAMETHASONE SODIUM PHOS CPT-4: J1100 05/31/2019 THER/PROPH/DIAG INJ SC/IM CPT-4: 29014 05/31/2019 THER/PROPH/DIAG INJ SC/IM CPT-4: 98911 05/17/2019 TRIAMCINOLONE ACET INJ NOS CPT-4: J3301 05/17/2019 DRAINAGE OF SKIN ABSCESS CPT-4: 47366 01/23/2019 AEROBIC WOUND CULTURE & STN CPT-4: 62634 01/23/2019 ROUTINE VENIPUNCTURE CPT-4: 51412 03/29/2017 ASSAY THYROID STIM HORMONE CPT-4: 47234 03/29/2017 ASSAY OF FREE THYROXINE CPT-4: 53986 03/29/2017 COMPREHEN METABOLIC PANEL CPT-4: 81129 03/29/2017 COMPLETE CBC W/AUTO DIFF WBC CPT-4: 93606 03/29/2017 LIPID PANEL CPT-4: 45430 03/29/2017 ASSAY OF BLOOD/URIC ACID CPT-4: 38626 03/29/2017 RBC SED RATE AUTOMATED CPT-4: 01424 03/29/2017 ROUTINE VENIPUNCTURE CPT-4: 21821 03/15/2017 ACUTE HEPATITIS PANEL CPT-4: 54726 03/15/2017 HIV-1/HIV-2 1 RESULT ANTBDY CPT-4: 10427 03/15/2017 EXC TR-EXT B9+SHASHA 0.5 CM< CPT-4: 20279 03/15/2017 EXC TR-EXT B9+SHASHA 1.1-2 CM CPT-4: 36262 03/15/2017 URINALYSIS NONAUTO W/O SCOPE CPT-4: 06809 01/07/2015 URINE CULTURE/ COLONY COUNT CPT-4: 34995 01/07/2015 ROUTINE VENIPUNCTURE CPT-4: 20528 01/07/2015 ASSAY OF FREE THYROXINE CPT-4: 67668 01/07/2015 ASSAY THYROID STIM HORMONE CPT-4: 30775 01/07/2015 COMPREHEN METABOLIC PANEL CPT-4: 63523 01/07/2015 COMPLETE CBC W/AUTO DIFF WBC CPT-4: 31427 01/07/2015 LIPID PANEL CPT-4: 33829 01/07/2015 ASSAY OF PSA TOTAL CPT-4: 31744 01/07/2015 ASSAY OF BLOOD/URIC ACID CPT-4: 04327 01/07/2015 ROUTINE VENIPUNCTURE CPT-4: 53129 12/11/2013 ASSAY OF FREE THYROXINE CPT-4: 47600 12/11/2013 ASSAY THYROID STIM HORMONE CPT-4: 76167 12/11/2013 COMPREHEN METABOLIC PANEL CPT-4: 90506 12/11/2013 COMPLETE CBC W/AUTO DIFF WBC CPT-4: 91214 12/11/2013 LIPID PANEL CPT-4: 93772 12/11/2013 ASSAY OF BLOOD/URIC ACID CPT-4: 55733 12/11/2013 ASSAY OF PSA TOTAL CPT-4: 36307 12/11/2013 URINE CULTURE/ COLONY COUNT CPT-4: 72087 01/02/2013 AEROBIC WOUND CULTURE & STN CPT-4: 75131 10/10/2011 DRAINAGE OF SKIN ABSCESS CPT-4: 59715 10/10/2011 ASSAY OF CREATININE CPT-4: 82071 09/15/2011 ASSAY OF BLOOD/URIC ACID CPT-4: 99703 09/15/2011 ROUTINE VENIPUNCTURE CPT-4: 04639 07/28/2011 ANTINUCLEAR ANTIBODIES CPT-4: 88368 07/28/2011 RBC SED RATE AUTOMATED CPT-4: 91261 07/28/2011 ASSAY OF BLOOD/URIC ACID CPT-4: 43023 07/28/2011 COMPREHEN METABOLIC PANEL CPT-4: 33364 07/28/2011 C-REACTIVE PROTEIN CPT-4: 42836 07/28/2011 THYRO PERX CPT-4: 2764388 07/28/2011 DNA AB CPT-4: 1889931 07/28/2011 SJOGRENS CPT-4: 0810572 07/28/2011 ASSAY OF FREE THYROXINE CPT-4: 78711 07/28/2011 ASSAY THYROID STIM HORMONE CPT-4: 60913 07/28/2011 ROUTINE VENIPUNCTURE CPT-4: 35484 05/25/2011 COMPREHEN METABOLIC PANEL CPT-4: 33472 05/25/2011 COMPLETE CBC W/AUTO DIFF WBC CPT-4: 68279 05/25/2011 ANTINUCLEAR ANTIBODIES CPT-4: 86647 05/25/2011 RHEUMATOID FACTOR QUANT CPT-4: 29863 05/25/2011 ASSAY OF PSA TOTAL CPT-4: 87892 05/25/2011 ASSAY OF BLOOD/URIC ACID CPT-4: 92603 05/25/2011 LIPID PANEL CPT-4: 04860 05/25/2011 ROUTINE VENIPUNCTURE CPT-4: 99620 02/01/2011 ASSAY OF FREE THYROXINE CPT-4: 86939 02/01/2011 ASSAY THYROID STIM HORMONE CPT-4: 42519 02/01/2011 COMPREHEN METABOLIC PANEL CPT-4: 09620 02/01/2011 COMPLETE CBC W/AUTO DIFF WBC CPT-4: 38060 02/01/2011 LIPID PANEL CPT-4: 86501 02/01/2011 ASSAY OF PSA TOTAL CPT-4: 20771 02/01/2011 ROUTINE VENIPUNCTURE CPT-4: 99747 12/02/2010 ASSAY OF BLOOD/URIC ACID CPT-4: 83951 12/02/2010 EB VIRUS VCA G/M + EBNA + EA CPT-4: 30836|40846 x 2|04010 COMPLETE CBC W/AUTO DIFF WBC CPT-4: 02736 12/02/2010 COMPREHEN METABOLIC PANEL CPT-4: 46459 09/14/2009 ASSAY OF BLOOD/URIC ACID CPT-4: 08787 09/14/2009 ROUTINE VENIPUNCTURE CPT-4: 48863 09/14/2009 URINALYSIS NONAUTO W/O SCOPE CPT-4: 94673 09/01/2009 Vital Signs Date Vital 06/20/2019 Respiratory [...] 1: 118/64 Code: 8480-6 BMI: 29.7 Code: 93908-0 Heart Rate 1: 100 bpm Height: 5'6" Respiratory Rate: 22 bpm SpO2: 95% Tempera ture: 36.7 (C) / 98.0 (F) Weight: 187 lbs 02/27/2017 Blood Pressure 1: 132/76 Code: 8480-6 BMI: 30.8 Code: 55836-2 Heart Rate 1: 96 bpm Height: 5'6" Respiratory Rate: 22 bpm SpO2: 98% Tempera ture: 36.6 (C) / 97.8 (F) Weight: 194 lbs 03/31/2015 Blood Pressure 1: 128/90 Code: 8480-6 Heart Rate 1: 88 bpm Respiratory Rate: 20 bpm Temperature: 36.9 (C) / 98.4 (F) Weight: 192 lbs 01/07/2015 Blood Pressure 1: 132/80 Code: 8480-6 BMI: 30.2 Code: 34145-9 Heart Rate 1: 78 bpm Height: 5'6" Respiratory Rate: 22 bpm Temperature: 36 .7 (C) / 98.1 (F) Weight: 190 lbs 04/15/2014 Blood Pressure 1: 136/88 Code: 8480-6 BMI: 31.0 Code: 21531-2 Heart Rate 1: 84 bpm Height: 5'6" Respiratory Rate: 20 bpm Temperature: 36 .1 (C) / 97.0 (F) Weight: 192 lbs 12/10/2013 Blood Pressure 1: 142/90 Code: 8480-6 BMI: 29.1 Code: 63600-0 Heart Rate 1: 72 bpm Height: 5'7" Respiratory Rate: 20 bpm Temperature: 36 .6 (C) / 97.8 (F) Weight: 186 lbs 05/02/2013 Blood Pressure 1: 146/96 Code: 8480-6 BMI: 30.5 Code: 40374-9 Heart Rate 1: 88 bpm Height: 5'7" Respiratory Rate: 20 bpm Temperature: 37 .0 (C) / 98.6 (F) Weight: 195 lbs 01/02/2013 Blood Pressure 1: 132/84 Code: 8480-6 BMI: 30.2 Code: 86178-7 Heart Rate 1: 80 bpm Height: 5'7" Respiratory Rate: 20 bpm Temperature: 36 .9 (C) / 98.4 (F) Weight: 193 lbs 10/10/2011 Blood Pressure 1: 122/68 Code: 8480-6 BMI: 35.7 Code: 86894-8 Heart Rate 1: 84 bpm Height: 5'2" Temperature: 36.9 (C) / 98.5 (F) Weight: 195 lbs 08/12/2011 Blood Pressure 1: 110/80 Code: 8480-6 BMI: 36.9 Code: 32992-7 Heart Rate 1: 80 bpm Height: 5'2" Temperature: 36.4 (C) / 97.6 (F) Weight: 202 lbs 08/04/2011 Blood Pressure 1: 126/80 Code: 8480-6 BMI: 37.9 Code: 94887-6 Heart Rate 1: 76 bpm Height: 5'2" Respiratory Rate: 20 bpm Temperature: 37 .0 (C) / 98.6 (F) Weight: 207 lbs 05/24/2011 Blood Pressure 1: 122/82 Code: 8480-6 BMI: 37.7 Code: 87830-4 Heart Rate 1: 68 bpm Height: 5'2" Temperature: 36.7 (C) / 98.1 (F) Weight: 206 lbs 04/15/2011 Blood Pressure 1: 128/82 Code: 8480-6 BMI: 37.1 Code: 26963-5 Heart Rate 1: 68 bpm Height: 5'2" [...] 1: 106/62 Code: 8480-6 BMI: 36.8 Code: 67114-0 Heart Rate 1: 90 bpm Height: 5'2" SpO2: 94% Temperature: 36.4 (C) / 97.6 (F) Weight: 201 lbs 12/02/2010 Blood Pressure 1: 142/90 Code: 8480-6 BMI: 36.8 Code: 58413-7 Heart Rate 1: 96 bpm Height: 5'2" [...] success Encounters Encounter Performer Location Codes Date ([id number]) OFFICE/OUTPATIENT VISIT EST Diagnosis: Enlarged testicle[ICD10: N50.89] Diagnosis: Polyuria[ICD10: R35.8] Azra TOVAR CPT-4: 56351 06/20/2019 ([id number]) OFFICE/OUTPATIENT VISIT EST Diagnosis: Acute contact dermatitis[ICD10: L25.9] Azra BROWNLEE Design A CPT-4: 40022 05/31/2019 ([id number]) OFFICE/OUTPATIENT VISIT EST Diagnosis: Acute contact dermatitis[ICD10: L25.9] Diagnosis: Acute sinusitis[ICD10: J01.90] Sylvie SAINZ [employer] [facility]res[facility] CPT-4: 27489 05/17/2019 ([id number]) OFFICE/OUTPATIENT VISIT EST Diagnosis: Acute gastritis without bleeding[ICD10: K29.00] Diagnosis: Essential (primary) hypertension[ICD10: I10] Diagnosis: Hyperlipidemia, unspecified[ICD10: E78.5] Azra COOK SignalJEAN CLAUDE UUSEE CPT-4: 88847 10/31/2018 ([id number]) OFFICE/OUTPATIENT VISIT EST Diagnosis: Acute gastritis without bleeding[ICD10: K29.00] Azra BYRNE [facility] CPT-4: 33269 01/18/2018 ([id number]) OFFICE/OUTPATIENT VISIT EST Diagnosis: Hyperlipidemia, unspecified[ICD10: E78.5] Diagnosis: Essential (primary) hypertension[ICD10: I10] Diagnosis: Weakness[ICD10: R53.1] Diagnosis: Sebaceous cyst[ICD10: L72.3] Diagnosis: Idiopathic gout, unspecified site[ICD10: M10.00] Sylvie BYRNE [facility] CPT-4: 04130 03/29/2017 OFFICE/OUTPATIENT VISIT EST Diagnosis: Pain in right knee[ICD10: M25.561] Azra BYRNE [facility] CPT-4: 89015 03/13/2017 OFFICE/OUTPATIENT VISIT EST Diagnosis: Pain in right leg[ICD10: M79.604] Diagnosis: Sebaceous cyst[ICD10: L72.3] Azra BYRNE [facility] CPT-4: 83370 02/27/2017 OFFICE/OUTPATIENT VISIT EST Diagnosis: Local infection of the skin and subcutaneous tissue, unspecified[ICD10: L08.9] Diagnosis: Essential (primary) hypertension[ICD10: I10] Diagnosis: Hyperlipidemia, unspecified[ICD10: E78.5] Dagmar BYRNE [facility] CPT-4: 25709 03/31/2015 ([id number]) PREV VISIT EST AGE 40-64 Diagnosis: History of chest pain[ICD9: V13.89] Diagnosis: Right flank pain[ICD9: 789.09] Diagnosis: ROUTINE MEDICAL EXAM[ICD9: V70.0] Diagnosis: HYPERTENSION[ICD9: 401.9] Diagnosis: HYPERLIPIDEMIA NEC/NOS[ICD9: 272.4] Diagnosis: Colon polyps[ICD9: 211.3] Diagnosis: HEMATURIA NOS[ICD9: 599.70] Dagmar BYRNE [facility] CPT-4: 28207 01/07/2015 OFFICE/OUTPATIENT VISIT EST Diagnosis: COUGH[ICD9: 786.2] Diagnosis: Rectal itching[ICD9: 698.0] Dagmar BYRNE [facility] CPT-4: 78880 04/15/2014 ([id number]) OFFICE/OUTPATIENT VISIT EST Diagnosis: ROUTINE MEDICAL EXAM[ICD9: V70.0] Diagnosis: GOUT[ICD9: 274.9] Diagnosis: HYPERLIPIDEMIA NEC/NOS[ICD9: 272.4] Diagnosis: HYPERTENSION[ICD9: 401.9] Sylvie SILVERIO [facility] CPT-4: 81561 12/11/2013 ([id number]) OFFICE/OUTPATIENT VISIT EST Diagnosis: Shingles[ICD9: 053.9] Sylvie BYRNE [facility] CPT-4: 11227 12/10/2013 ([id number]) OFFICE/OUTPATIENT VISIT EST Diagnosis: HYPERTENSION[ICD9: 401.9] Diagnosis: Colon polyps[ICD9: 211.3] Diagnosis: Stress reaction[ICD9: 308.9] Sylvie BYRNE [facility] CPT-4: 88244 05/02/2013 ([id number]) OFFICE/OUTPATIENT VISIT EST Diagnosis: URINARY TRACT INFECTION[ICD9: 599.0] Sylvie BYRNE [facility] CPT-4: 71147 01/02/2013 OFFICE/OUTPATIENT VISIT EST Diagnosis: CELLULITIS OF TRUNK[ICD9: 682.2] Diagnosis: SPRAIN SHOULDER/ARM[ICD9: 840.9] Liza Ragsdale SYLVIE BYRNE [facility] CPT-4: 02674 10/10/2011 ([id number]) OFFICE/OUTPATIENT VISIT EST Diagnosis: GOUT[ICD9: 274.9] Sylvie ChapaFrancisco AGAPITO [facility] CPT-4: 27363 09/15/2011 OFFICE/OUTPATIENT VISIT EST Diagnosis: DIARRHEA[ICD9: 787.91] Sylvie Santoroscarlettdelmi WILSONSYLVIE SammiFrancisco YVANMARLIN Cagle [facility] CPT-4: 57733 08/12/2011 ([id number]) OFFICE/OUTPATIENT VISIT EST Diagnosis: GOUT[ICD9: 274.9] Diagnosis: Positive WENDI (antinuclear antibody)[ICD9: 795.79] Sylvie WILSONLINE SammiFrancisco AGAPITO [facility] CPT-4: 07944 08/04/2011 OFFICE/OUTPATIENT VISIT EST Diagnosis: Rash[ICD9: 782.1] Diagnosis: Joint pain[ICD9: 719.40] Diagnosis: Hyperlipidemia[ICD9: 272.4] Sylvie Santoroscarlettdelmi SYLVIE SFrancisco Kulkarni [facility] CPT-4: 68108 05/24/2011 OFFICE/OUTPATIENT VISIT EST Diagnosis: PHARYNGITIS, ACUTE[ICD9: 462] Diagnosis: COUGH[ICD9: 786.2] Diagnosis: SINUSITIS, ACUTE[ICD9: 461.9] Sylvie WILSONLINE SammiFrancisco AGAPITO [facility] CPT-4: 11369 04/15/2011 OFFICE/OUTPATIENT VISIT EST Diagnosis: Clavicle fracture[ICD9: 810.00] Sylvie Yvanscarlettdelmi SYLVIE SammiFrancisco YVANSCARLETTDELMI [facility] CPT-4: 71865 01/13/2011 OFFICE/OUTPATIENT VISIT EST Diagnosis: Clavicle pain[ICD9: 719.41] Sylvie Byrne SYLVIE S. Shad [facility] CPT-4: 44651 12/23/2010 OFFICE/OUTPATIENT VISIT EST Diagnosis: Arm pain[ICD9: 729.5] Diagnosis: SPASM OF MUSCLE[ICD9: 728.85] Diagnosis: Neck pain[ICD9: 723.1] Sylvie Cagle [facility] CPT-4: 50991 12/15/2010 OFFICE/OUTPATIENT VISIT EST Diagnosis: HYPERTENSION[ICD9: 401.9] Diagnosis: PHARYNGITIS, ACUTE[ICD9: 462] Diagnosis: MALAISE AND FATIGUE[ICD9: 780.79] Diagnosis: GOUT[ICD9: 274.9] Sylvie Yvanjean claude SAINZ SammiFrancisco AGAPITO [facility] CPT-4: 85358 12/02/2010 ([id number]) OFFICE/OUTPATIENT VISIT, EST Sylvie Yvanjean claude JAUREGUI GUICHIQUITA SammiFrancisco YVANJEAN CLAUDE [facility] CPT-4: 33394 04/19/2010 ([id number]) OFFICE/OUTPATIENT VISIT, NHAN BYRNE DO [employer] CPT-4: 80907 04/14/2010 ([id number]) OFFICE/OUTPATIENT VISIT, NHAN BYRNE DO [employer] CPT-4: 23935 09/01/2009 Plan of Care Planned Activity Notes [...] ICD-9 : 608.89 ICD-10 : N50.89 06/20/2019 Care Plan: US EXAM SCROTUM LOINC : 29436 -7 Pending 06/20/2019 Visit Diagnosis Plan: Acute contact dermatitis Discuss ion: skin scrape obtained due to recurrent issue. 4 mg dexamethasone given in office. prednisone prescribed to take as directed. instructed to change laundry detergent back to original and wash a week's worth of clothes in other detergent to see if problem improves. ICD-9 : 692.9 ICD-10 : L25.9 05/31/2019 Appointment: Azra Bradley [address] [place] [address] ACUTE ILLNESS 05/31/2019 Patient Education: prednisone- [employer] Coupon [phone] https://www.[employer] [place]/samplemd/resources/getResource/61/[email or web address] Completed 05/31/2019 Visit Diagnosis Plan: Acute contact dermatitis Discuss ion: Kenalog 40mg IM now Cover with [employer] Call in 1week on how doing Medrol Dose Pack ICD-9 : 692.9 ICD-10 : L25.9 05/17/2019 Appointment: Sylvie Byrne WPtel: [phone] ACUTE ILLNESS 05/17/2019 Patient Education: Medrol (Nicholas)- Opt[employer] Coupon [phone] https://www.[employer] [place]/samplemd/resources/getResource/61/[email or web address] Completed 05/17/2019 Visit Diagnosis Plan: Abscess of chest wall Discussion : patient has large amount of induration still noted despite recent drainage and antibiotics. dr. najera's office was called and they were able to see patient today. patient was sent over there for possible surgery. ICD-9 : 682.2 ICD-10 : L02.213 01/25/2019 Appointment: Azra Bradley [address] [place], [place] [phone] FOLLOW UP 01/25/2019 Visit Diagnosis Plan: Abscess [...] ICD-10 : L02.213 01/23/2019 Appointment: Azra Bradley [address] [place], [place] [phone] Patient called 01/21/19 [facility] [facility] 01/23[facility] Patient Education: clindamycin HCl- [employer] Coupon [phone] https://www.[employer] [place]/samplemd/resources/getResource/61/[email or web address]-[email or web address] Completed 01/23/2019 Appointment: Azra Bradley [address] [place], [place] [phone] US CANCELED 01/16/2019 Visit Diagnosis Plan: Acute gastritis without bleeding Discussion: cdiff lab ordered on patient. isabela sent out for patient to start due [...] ICD-10 : E78.5 10/31/2018 Appointment: Azra Bradley [address] [place], [place] [id number] ACUTE ILLNESS 10/31/2018 Patient Education: High Blood [...] ICD-10 : K29.00 01/18/2018 Appointment: Azra Bradley [address] [place] [address] ACUTE ILLNESS 01/18/2018 Patient Education: Patient Medication Summary Completed 01/18/2018 Appointment: Sylvie Byrne WPtel: [phone] [facility] US LAB 03/29/2017 Patient Education: Patient Medication [...] ICD-10 : L72.3 03/15/2017 Appointment: Azra Bradley [address] [place], [place] [phone] OFFICE SURGERY 03/15/2017 Patient Education: Patient Medication [...] ICD-10 : M25.561 03/13/2017 Appointment: Azra Bradley [address] [facility] ACUTE ILLNESS 03/13/2017 Patient Education: Patient Medication Summary Completed 03/13/2017 Care Plan: X-RAY EXAM OF KNEE 1 [place] 2 [place] : [address]-6 Pending 03/13/2017 Visit Diagnosis Plan: Sebaceous cyst Discussion: instr ucted to make follow up appt to have them removed. verbalized understanding. ICD-9 : 706.2 ICD-10 : L72.3 02/27/2017 Visit Diagnosis Plan: Pain in right leg Discussion: belgica barclay sent for stat ultrasound of lower extremity r/t pain/swelling and warmth. will notify him of results but instructed to take ibuprofen to assist with swelling and pain if not clot related. ICD-9 : 729.5 ICD-10 : M79.604 02/27/2017 Appointment: Azra Bradley [address] [id number] ACUTE ILLNESS 02/27/2017 Patient Education: Patient Medication Summary Completed 02/27/2017 Appointment: Katerina Sousa WPtel: [phone] [facility] ACUTE ILLNESS 08/21/2015 Visit Plan: Has been [...] back. 03/31/2015 Appointment: Dagmar Ahmadi [facility]Ptel: [phone] 03/30 Confirmed ~sl FOLLOW UP 03/31/2015 Patient Education: Patient Medication Summary Completed 03/31/2015 Visit Plan: CBC, CMP, TSH, Free T4, Lipi d Panel, Uric Acid, PSA, EKG Urine culture today Increase fluids to >120cc's daily. Notify if flank pain increases. Resume Lisinopril 20 mg PO daily Resume Allopurinol 100 mg Ciprofloxacin 500 mg PO bid Scheudule appt. for follow-up Colonscopy - [place] 01/07/2015 Appointment: Dagmar Ahmadi WPtel: [address] [place] [address] 01/06 appointment confirmed cn Annual Well Visit 01/07/2015 Patient Education: Patient Medication Summary Completed 01/07/2015 Patient Education: [facility] - Saving [employer] - Lisinopril - 18-64 - Dynamic Portal ID Completed 01/07/2015 Appointment: Sylvie Byrne WPtel: [address] [place] [address] ACUTE ILLNESS 08/26/2014 Appointment: Dagmar Ahmadi WPtel: [address] [place] [address] ACUTE ILLNESS 04/15/2014 Patient Education: Patient Medication Summary Completed 04/15/2014 Appointment: Sylvie Byrne WPtel: [address] [place] [address] US LAB 12/11/2013 Patient Education: Patient Medication Summary Completed 12/11/2013 Visit Plan: Check CBC, CMP, TSH, Free T4 , Lipids, uric acid, PSA--pt will return in AM for fasting lab Finish acyclovir Discussed Zostavax down road 12/10/2013 Appointment: Sylvie Byrne WPtel: [address] [place] [address] 12/06 left message FOLLOW UP 12/10/2013 Patient Education: Patient Medication Summary Completed 12/10/2013 Visit Plan: Lisinopril 20mg daily Stress Reducers and trial of fluoxetine 10mg q am Proceed with colonoscopy Check fasting lab 05/02/2013 Appointment: Sylvie Byrne WPtel: [address] [place] [address] ACUTE ILLNESS 05/02/2013 Patient Education: Patient Medication Summary Completed 05/02/2013 Appointment: Sylvie Byrne WPtel: [address] [place] [address] ACUTE ILLNESS 01/02/2013 Patient Education: Patient Medication Summary Completed 01/02/2013 Appointment: Liza Ragsdale WPtel: [address] [place], [place] [id number] ACUTE ILLNESS 10/10/2011 Patient Education: Patient Medication Summary Completed 10/10/2011 Appointment: Sylvie Byrne WPtel: [address] [place], [place] [id number] [place] LAB 09/15/2011 Patient Education: Patient Medication [...] Will seek re-eval if symptoms worsen or jacket changer the weekend. 08/12/2011 Appointment: Liza Ragsdale WPtel: [address] [place] [address] ACUTE ILLNESS 08/12/2011 Patient Education: Patient Medication Summary Completed 08/12/2011 Visit Plan: Continue increased dose of a llopurinol and daily colcrys Recheck thyroid lab, uric acid and PSA in 3mos Will hold on NSAID at this time due to history of GERD 08/04/2011 Appointment: Sylvie Byrne WPtel: [address] [place], [place] [phone] FOLLOW UP 08/04/2011 Patient Education: Patient Medication Summary Completed 08/04/2011 Appointment: Sylvie Byrne WPtel: [address] [place], [place] [id number] [place] LAB 07/28/2011 Patient Education: Patient Medication Summary Completed 07/28/2011 Appointment: Sylvie Byrne WPtel: [address] [place], [place] [id number] [place] LAB 05/25/2011 Patient Education: Patient Medication [...] at night. 05/24/2011 Appointment: Liza Ragsdale WPtel: [address] [place] [address] ACUTE ILLNESS 05/24/2011 Patient Education: Patient Medication Summary Completed 05/24/2011 Visit Plan: codeine/guif cough syrup and cefdinir are phoned to [facility]. Discussed fluids and rest. Pt. will notify if symptoms persist or worsen. 04/15/2011 Appointment: Liza Ragsdale WPtel: [address] [place] [address] ACUTE ILLNESS 04/15/2011 Patient Education: Patient Medication Summary Completed 04/15/2011 Appointment: Sylvie Byrne WPtel: [address] [place], [place] [phone] LAB 02/01/2011 Patient Education: Patient Medication Summary Completed 02/01/2011 Visit Plan: Repeat clavicle x-ray in 6wk s Check bone density 01/13/2011 Appointment: Sylvie Byrne WPtel: [address] [place], [place] [phone] [place] FOLLOW UP 01/13/2011 Patient Education: Patient Medication Summary Completed 01/13/2011 Visit Plan: Check right clavicle and alda ulder x-ray Continue Vimovo and flexeril 12/23/2010 Appointment: Sylvie Byrne WPtel: [address] [place], [place] [phone] [place] FOLLOW UP 12/23/2010 Patient Education: Patient Medication Summary Completed 12/23/2010 Appointment: Sylvie Byrne WPtel: [address] [place], [place] [phone] ER Follow UP 12/15/2010 Patient Education: Patient [...] BP check. 12/02/2010 Appointment: Liza Ragsdale WPtel: [address] [place], [place] [phone] ACUTE ILLNESS 12/02/2010 Patient Education: Patient Medication Summary Completed 12/02/2010 Care Plan: ASSAY OF BLOOD/URIC ACID Pendi 12/02/2010 Care Plan: VCA AB G/M Pending 2010 Care Plan: EB GARY AG Pending 2010 Care Plan: EB NUCL AB Pending 2010 Appointment: Sylvie Byrne WPtel: [address] [place], [place] [phone] FOLLOW UP 11/18/2010 Visit Plan: benadryl 25 mg tab QHS. 12.5 mg tab every 8 hrs during the day. Pt. will notify if symptoms worsen. No facial edema present. 04/19/2010 Appointment: Liza Ragsdale WPtel: [address] [place], [place] [phone] FOLLOW UP 04/19/2010 Patient Education: Patient Medication [...] no improvement. 04/14/2010 Appointment: Liza Ragsdale WPtel: [address] [place], [place] [phone] ACUTE ILLNESS 04/14/2010 Patient Education: Patient Medication Summary Completed 04/14/2010 Appointment: L[facility] Ragsdale [facility]Ptel[facility] [phone] [id number] [facility] 03/12/2010 App[facility]ment[facility] [phone] [facility] [facility] 09/14/2009 Patient Education: Patient Medication Summary Completed 09/14/2009 Appointment: Sylvie Byrne WPtel: [phone] [facility] ACUTE ILLNESS 09/01/2009 Patient Education: Patient Medication [...] 100 mg Ciprofloxacin 500 mg PO bid [facility] for follow-up Colons[facility] - Candido . Check CBC, CMP, TSH, Free T4, [...] seek re- eval if symptoms worsen or jacket changer the weekend. . Continue increased dose of [...] [facility] Discussed fluids and rest. Pt. will notify [...]
--- OUTSIDE RECORDS SUMMARY | 2019-10-17 10:30 | XMS REPORT | CCD ---
Author Author Renan Byrne D.O. 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 Role Phone Sylvie Byrne D.O., PP Unavailable CCM Unavailable Summary Purpose Interface Exchange Insurance Providers Payer name Policy type / Coverage type Covered alliance party ID Effective Begin Date Effective End Date WPS MEDICARE PART B [place] Medicare Part B [id number] Unknown [facility] Medicare Part B [id number] Unknown Family History Family History data not found Social History Social History Element Codes Description Effective Dates Tobacco history SNOMED CT: 735738490 Nonsmoker 12/02/2010 Allergies, Adverse Reactions, Alerts Substance [...] Fill Instructions Cipro 500 mg tablet RxNorm: 485241 1 Tablet(s) Oral two times a day 06/20/2019 06/28/2019 Active Cipro 500 mg tablet RxNorm: 434750 1 Tablet(s) Oral two times a day 06/20/2019 06/19/2019 Inactive hydroxyzine HCl 25 mg tablet RxNorm: 369450 1 Tablet(s) Oral Q8 H as needed 06/14/2019 06/14/2019 Inactive Cipro 500 mg tablet RxNorm: 177482 1 Tablet(s) Oral two times a day 06/14/2019 06/19/2019 Inactive Cipro 500 mg tablet RxNorm: 557866 1 Tablet(s) Oral two times a day 06/14/2019 06/13/2019 Inactive hydroxyzine HCl 25 mg tablet RxNorm: 628500 1 Tablet(s) Oral Q8 H as needed 06/14/2019 06/13/2019 Inactive prednisone 20 mg tablet RxNorm: 127793 1 Tablet(s) Oral two latonia es a day 05/31/2019 06/05/2019 Inactive Elimite 5 % topical cream RxNorm: 441966 Application To pical QPM from head to toe 05/17/2019 07/16/2019 Active Medrol (Nicholas) 4 mg tablets in a dose pack RxNorm: 504174 6 Tablet(s) Oral QD --then as directed 05/17/2019 05/23/2019 Inactive Osteo Bi-Flex 250 mg-200 mg tablet RxNorm: 113898 2 Tablet(s) O ral QD 01/23/2019 No Stop Date Active clindamycin HCl 300 mg capsule RxNorm: 376477 2 Capsule (s) Oral three times a day 01/23/2019 01/30/2019 Inactive Flagyl 500 mg tablet RxNorm: 141160 1 Tablet(s) PO BID 10/31/2018 Inactive lisinopril 20 mg tablet RxNorm: 660934 1 Tablet(s) PO QD for bl ood pressure 09/13/2018 12/11/2018 Inactive allopurinol 100 mg tablet RxNorm: 972068 1 Tablet(s) PO QD 09/14/19 19 12/11/2018 Inactive Flagyl 500 mg tablet RxNorm: 005080 1 Tablet(s) PO BID 01/18/2018 Inactive Cipro 250 mg tablet RxNorm: 899678 1 Tablet(s) PO BID 01/18/201801/08 Inactive lisinopril 20 mg tablet RxNorm: 326953 1 Tablet(s) PO QD for bl ood pressure 11/06/2017 02/03/2018 Inactive allopurinol 100 mg tablet RxNorm: 699887 1 Tablet(s) PO QD 11/07/19 18 02/03/2018 Inactive allopurinol 100 mg tablet RxNorm: 211902 1 Tablet(s) PO QD 04/11/19 18 10/07/2017 Inactive lisinopril 20 mg tablet RxNorm: 641262 1 Tablet(s) PO QD for bl ood pressure 04/07/2017 11/05/2017 Inactive prednisone 20 mg tablet RxNorm: 707859 2 Tablet(s) PO QD 03/15/2017 1 05/18/2016 Inactive tramadol 50 mg tablet RxNorm: 454618 1-2 Tablet(s) PO TID as needed 03/13/2017 08/06/2017 Inactive Medrol (Nicholas) 4 mg tablets in a dose pack RxNorm: 516068 Tablet(s) PO As Directed 02/28/2017 08/01/2017 Inactive allopurinol 100 mg tablet RxNorm: 307256 1 Tablet(s) PO QD 04/11/19 17 04/11/2017 Inactive lisinopril 20 mg tablet RxNorm: 603427 1 Tablet(s) PO QD for bl ood pressure 04/11/2016 04/07/2017 Inactive pravastatin 20 mg tablet RxNorm: 540726 1 Tablet(s) PO QD 01/13/2016 02/26/2017 Inactive pravastatin 20 mg tablet RxNorm: 364191 TAKE 1 TABLET DAILY 016 01/13/2016 Inactive pravastatin 40 mg tablet RxNorm: 357160 1 Tablet(s) PO QD 03/31/2015 03/31/2015 Inactive pravastatin 20 mg tablet RxNorm: 837538 1 Tablet(s) PO QD 03/31/2015 06/28/2015 Inactive doxycycline hyclate 100 mg capsule RxNorm: 0820810 1 Capsule(s) PO BID 03/31/2015 04/09/2015 Inactive mupirocin 2 % topical ointment RxNorm: 407709 Apply TOP BID to affected lesions 03/31/2015 08/01/2017 Inactive pravastatin 40 mg tablet RxNorm: 126394 1 Tablet(s) PO QD 01/08/2015 03/30/2015 Inactive lisinopril 20 mg tablet RxNorm: 563413 1 Tablet(s) PO QD for bl ood pressure 01/07/2015 12/31/2015 Inactive allopurinol 100 mg tablet RxNorm: 487842 1 Tablet(s) PO QD 01/08/20 15 04/10/2016 Inactive ciprofloxacin 500 mg tablet RxNorm: 108265 1 Tablet(s) PO BID 01/0701/13/2015 Inactive doxycycline hyclate 100 mg capsule RxNorm: 0005806 1 Capsule(s) PO BID 04/15/2014 04/24/2014 Inactive fluoxetine 10 mg capsule RxNorm: 912303 1 Capsule(s) PO QAM 014 04/14/2014 Inactive lisinopril 20 mg tablet RxNorm: 493253 1 Tablet(s) PO QD for bl ood pressure 05/02/2013 04/26/2014 Inactive Cipro 500 mg tablet RxNorm: 986260 1 Tablet(s) PO BID 01/02/201312/10 Inactive Cipro 500 mg tablet RxNorm: 297952 1 Tablet(s) PO BID 01/02/201304/2012 Inactive doxycycline hyclate 100 mg Cap RxNorm: 895863 1 Capsule(s) PO BID 0 10/10/2011 10/19/2011 Inactive Culturelle 10 billion cell Cap RxNorm: 547524 1 Capsule(s) PO BID 0 08/12/2011 09/10/2011 Inactive Colcrys 0.6 mg Tab RxNorm: 653520 1 Tablet(s) PO BID 08/04/201111/30 Inactive allopurinol 100 mg Tab RxNorm: 952533 1 Tablet(s) PO BID 07/13/2011 0 08/03/2011 Inactive clotrimazole-betamethasone 1 %-0.05 % Topical Cream RxNorm: 000532 1 Application TOP BID 06/10/2011 06/23/2011 Inactive clotrimazole-betamethasone 1 %-0.05 % Topical Cream RxNorm: 021640 1 Application TOP BID 05/24/2011 06/06/2011 Inactive Colcrys 0.6 mg Tab RxNorm: 019528 1 Tablet(s) PO BID 05/24/201108/02 Inactive cefdinir 300 mg Cap RxNorm: 734697 1 Capsule(s) PO BID 04/15/2011 Inactive Daypro 600 mg Tab RxNorm: 396428 1 Tablet(s) PO BID 12/15/20102010 Inactive for pain Medrol (Nicholas) 4 mg Tabs in a Dose Pack RxNorm: 009453 Tablet(s) PO 0 12/09/2010 12/15/2010 Inactive as directed Colcrys 0.6 mg Tab RxNorm: 066748 1 Tablet(s) PO BID 12/06/201001/04 Inactive lisinopril-hydrochlorothiazide 20 mg-12.5 mg Tab RxNorm: 197 886 1 Tablet(s) PO QAM 12/02/2010 01/30/2011 Inactive ranitidine 150 mg tablet RxNorm: 2364694 1 Tablet(s) PO BID Pt will phone before filing this script. 04/14/2010 05/13/2010 Inactive allopurinol 100 mg Tab RxNorm: 763981 1 Tablet(s) PO BID 09/16/2009 0 11/14/2009 Inactive lisinopril-hydrochlorothiazide 20 mg-12.5 mg Tab RxNorm: 197 886 1 Tablet(s) PO QAM 06/23/2009 08/31/2009 Inactive ibuprofen 200 mg tablet RxNorm: 788519 4 Tablet(s) PO QAM No Start Da te Active Zithromax Z-Nicholas 250 mg Tab RxNorm: 211453 Tablet(s) PO as direc tenzin No Start Date 01/12/2011 Inactive Ultram Oral RxNorm: Oral No Start Date 01/01/2013 Inactive allopurinol 100 mg tablet RxNorm: 009543 1 Tablet(s) PO QD No Start Date 01/06/2015 Inactive pravastatin 40 mg tablet RxNorm: 214225 1 Tablet(s) PO QD No Start Date 01/07/2015 Inactive Naprosyn 500 mg tablet RxNorm: 105936 1 Tablet(s) PO BID No Start D ate 05/01/2013 Inactive azithromycin 250 mg tablet RxNorm: 703009 2 Tablet(s) P O QD take 2 tablets (500 mg) by oral route once daily for 1 day then 1 tablet (250 mg) by oral route once daily for 4 days No Start Date 01/12/2011 Inactive allopurinol 300 mg Tab RxNorm: 209159 1 Tablet(s) PO QD No Start Da te 01/01/2013 Inactive Colcrys 0.6 mg tablet RxNorm: 204906 1 Tablet(s) PO BID No Start Da te 05/01/2013 Inactive Medrol (Nicholas) 4 mg tablets in a dose pack RxNorm: 411390 Tablet(s) PO As Directed No Start Date 02/27/2017 Inactive hydrocodone 5 mg-acetaminophen 325 mg tablet RxNorm: 187095 1 Tablet(s) PO Q4H as needed for pain No Start Date 12/09/2013 Inactive ranitidine 150 mg Tab RxNorm: 2926886 1 Tablet(s) PO BID No Start D ate 04/13/2010 Inactive Allopurinol 100 mg Tab RxNorm: 531041 1 Tablet(s) PO BID No Start D ate 09/15/2009 Inactive coenzyme Q10 200 mg capsule RxNorm: 885638 1 Capsule(s) PO QD No St art Date 03/30/2015 Inactive Mobic 7.5 mg tablet RxNorm: 194621 1 Tablet(s) PO QD No Start Date Inactive Osteo Bi-Flex (5-Loxin) 1,500 mg-400 unit-100 mg tablet RxNo rm: 1 Tablet(s) PO BID No Start Date 03/30/2015 Inactive hydrocodone-acetaminophen 7.5 mg-325 mg Tab RxNorm: 874953 1-2 Tablet(s) PO Q4-6H No Start Date 08/03/2011 Inactive as needed for pa in Neurontin 300 mg capsule RxNorm: 464304 1 Capsule(s) PO QD No Start Date 12/09/2013 Inactive Medrol (Nicholas) 4 mg Tabs in a Dose Pack RxNorm: 467204 Tablet(s) PO N o Start Date 12/08/2010 Inactive as directed Vitamin D2 1,000 unit capsule RxNorm: 345513 1 Capsule(s) PO QD No Start Date 03/30/2015 Inactive Flexeril 10 mg Tab RxNorm: 814873 1 Tablet(s) PO TID No Start Date Inactive for spasm Medication Administered No Medication Administered data Immunizations No Immunization data Results Observation Observation Code Item Item Code Result Date S ervice Location C DIFF MOL [id number] C Diff Mol Int Negative 11/02/2018 Unk nown C Diff An [id number] C Diff Analyzer Indeterminate 9 Unknown GFR CALC 7044890 GFR Non Afr Amr >60 mL/min 11/01/2018 Un known GFR CALC 0726784 GFR Afr Amr >60 mL/min 11/01/[address] LDL [id number] HDL CHOLESTEROL 46 mg/dL 11/01/[address] LDL 8899109 Cholesterol 198 mg/dL 11/01/[address] LDL Triglyceride 104 mg/dL 11/01/[address] LDL LDL Direct 158 mg/dL 11/01/[address] LDL NON-HDL Chol 152 mg/dL 11/01/2018 Unkno wn THYROID STIMULATING HORMONE 94964 TSH 1.276 uIU/mL 11/01/2018 Unknown COMPREHENSIVE METABOLIC 08701 AST 22 U/L 2018 Unknown COMPREHENSIVE METABOLIC 62564 ALT 17 U/L 2018 Unknown COMPREHENSIVE METABOLIC 41985 BUN 16 mg/dL 2018 Unknown COMPREHENSIVE METABOLIC 16365 ALBUMIN 4.3 g/dL 2018 Unknown COMPREHENSIVE METABOLIC 62720 CHLORIDE 103 mmol/L 11/01 Unknown COMPREHENSIVE METABOLIC 20933 Bili Total 0.9 mg/dL 11/01 Unknown COMPREHENSIVE METABOLIC 40156 ALK PHOS 62 U/L 2018 Unknown COMPREHENSIVE METABOLIC 41175 SODIUM 138 mmol/L 11/01 Unknown COMPREHENSIVE METABOLIC 04212 CREATININE 0.87 mg/dL 10/09 Unknown COMPREHENSIVE METABOLIC 93520 CALCIUM 9.2 mg/dL 2018 Unknown COMPREHENSIVE METABOLIC 25270 POTASSIUM 4.1 mmol/L 11/01 Unknown COMPREHENSIVE METABOLIC 43188 Total Protein 7.2 g/dL Unknown COMPREHENSIVE METABOLIC 11114 Glucose 81 mg/dL 2018 Unknown COMPREHENSIVE METABOLIC 45722 Bicarbonate 18 mmol/L 10/09 Unknown COMPREHENSIVE METABOLIC 52477 AGAP 17 mmol/L 2018 Unknown COMPLETE BLOOD COUNT 6153482 WBC 8.8 10e9/L 11/02/19 19 Unknown COMPLETE BLOOD COUNT 1552011 RBC 4.54 10e12/L 2018 Unknown COMPLETE BLOOD COUNT 6461109 HEMOGLOBIN 14.4 g/dL 11/02/19 19 Unknown COMPLETE BLOOD COUNT 3830170 HEMATOCRIT 44.0 % 11/02/19 19 Unknown COMPLETE BLOOD COUNT 5676450 MCV 96.9 fL 9 Unknown COMPLETE BLOOD COUNT 6725260 MCH 31.7 pg 9 Unknown COMPLETE BLOOD COUNT 1538841 MCHC 32.7 g/dL 9 Unknown COMPLETE BLOOD COUNT 6223304 PLATELET COUNT 239 10e9/L Unknown COMPLETE BLOOD COUNT 1540087 Mean Plt Volume 10.5 fL Unknown COMPLETE BLOOD COUNT 5940893 NRBC Absolute 0.00 10e9/L Unknown COMPLETE BLOOD COUNT 5318597 Neut Auto 65.2 % 9 Unknown COMPLETE BLOOD COUNT 4682498 NRBC/100 WBC 0.0 2018 Unknown COMPLETE BLOOD COUNT 0215858 Lymph Auto 23.1 % 11/02/19 19 Unknown COMPLETE BLOOD COUNT 0272299 Hendry Auto 9.5 % 9 Unknown COMPLETE BLOOD COUNT 4359370 RDW 12.2 % 9 Unknown COMPLETE BLOOD COUNT 6391947 Eos Auto 1.7 % 9 Unknown COMPLETE BLOOD COUNT 8813375 Baso Auto 0.3 % 9 Unknown COMPLETE BLOOD COUNT 8422741 Neutrophil Abs 5.73 10e9/L Unknown COMPLETE BLOOD COUNT 6806443 Imm Gran Auto 0.2 % 11/01 Unknown COMPLETE BLOOD COUNT [id number] Lymphocyte Abs 2.03 10e9/L Unknown COMPLETE BLOOD COUNT [id number] Monocyte Abs 0.84 10e9/L 10/09 Unknown COMPLETE BLOOD COUNT 8271969 Eosinophil Abs 0.15 10e9/L Unknown COMPLETE BLOOD COUNT 9572352 RDW-SD 43.4 fL 9 Unknown COMPLETE BLOOD COUNT [id number] Basophil Abs 0.03 10e9/L 10/09 Unknown COMPLETE BLOOD COUNT [id number] Imm Gran Abs 0.02 10e9/L 10/09 Unknown COMPREHENSIVE METABOLIC 63989 AST 17 U/L 2016 Unknown COMPREHENSIVE METABOLIC 88125 ALT 16 U/L 2016 Unknown COMPREHENSIVE METABOLIC 51509 BUN 15 mg/dL 2016 Unknown COMPREHENSIVE METABOLIC 00680 ALBUMIN 4.4 g/dL 2016 Unknown COMPREHENSIVE METABOLIC 58988 CHLORIDE 104 mmol/L 03/29 Unknown COMPREHENSIVE METABOLIC 20537 Bili Total 0.5 mg/dL 03/29 Unknown COMPREHENSIVE METABOLIC 40692 ALK PHOS 56 U/L 2016 Unknown COMPREHENSIVE METABOLIC 94423 SODIUM 139 mmol/L 03/29 Unknown COMPREHENSIVE METABOLIC 67391 CREATININE 0.88 mg/dL 03/11 Unknown COMPREHENSIVE METABOLIC 91390 CALCIUM 9.8 mg/dL 2016 Unknown COMPREHENSIVE METABOLIC 68600 POTASSIUM 4.2 mmol/L 03/29 Unknown COMPREHENSIVE METABOLIC 41012 Total Protein 6.8 g/dL Unknown COMPREHENSIVE METABOLIC 22923 Glucose 100 mg/dL 2016 Unknown COMPREHENSIVE METABOLIC 11914 Bicarbonate 30 mmol/L 03/11 Unknown COMPREHENSIVE METABOLIC 71087 AGAP 5 mmol/L 2016 Unknown THYROID STIMULATING HORMONE 17557 TSH 1.077 uIU/mL 03/29/2017 Unknown URIC ACID 64722 URIC ACID 5.2 mg/dL 03/29/2017 Unknown FREE T4 08205 T4 Free 1.04 ng/dL 03/29/2017 Unknown ERYTHROCYTE SEDIMENTATION RATE 11050 Sed Rate 21 mm/hr 03/29/2017 Unknown COMPLETE BLOOD COUNT [id number] WBC 5.9 10e9/L 03/29/20 17 Unknown COMPLETE BLOOD COUNT 6739666 RBC 4.52 10e12/L 2016 Unknown COMPLETE BLOOD COUNT 7780965 HEMOGLOBIN 14.6 g/dL 03/29/20 17 Unknown COMPLETE BLOOD COUNT 2877751 HEMATOCRIT 44.7 % 03/29/20 17 Unknown COMPLETE BLOOD COUNT 6907702 MCV 98.9 fL 7 Unknown COMPLETE BLOOD COUNT 3994737 MCH 32.3 pg 7 Unknown COMPLETE BLOOD COUNT 5523658 MCHC 32.7 g/dL 7 Unknown COMPLETE BLOOD COUNT 8092198 PLATELET COUNT 262 10e9/L Unknown COMPLETE BLOOD COUNT 0460800 Mean Plt Volume 10.1 fL Unknown COMPLETE BLOOD COUNT 9647903 Neut Auto 44.2 % 7 Unknown COMPLETE BLOOD COUNT 8555160 Lymph Auto 41.5 % 03/29/20 17 Unknown COMPLETE BLOOD COUNT 4789702 Hendry Auto 11.2 % 7 Unknown COMPLETE BLOOD COUNT 0513041 RDW 12.3 % 7 Unknown COMPLETE BLOOD COUNT 1557220 Eos Auto 2.6 % 7 Unknown COMPLETE BLOOD COUNT 5044212 Baso Auto 0.5 % 7 Unknown COMPLETE BLOOD COUNT 3862678 Neutrophil Abs 2.61 10e9/L Unknown COMPLETE BLOOD COUNT 3177101 Lymphocyte Abs 2.45 10e9/L Unknown COMPLETE BLOOD COUNT 1618512 Monocyte Abs 0.66 10e9/L 03/11 Unknown COMPLETE BLOOD COUNT 8529742 Eosinophil Abs 0.15 10e9/L Unknown COMPLETE BLOOD COUNT 4397719 RDW-SD 43.7 fL 7 Unknown COMPLETE BLOOD COUNT 5209583 Basophil Abs 0.03 10e9/L 03/11 Unknown LIPID GROUP 50822 Cholesterol 248 mg/dL 03/29/2017 Unkno wn LIPID GROUP 81741 Triglyceride 87 mg/dL 03/29/2017 Unkn own LIPID GROUP 09513 HDL CHOLESTEROL 49 mg/dL 03/29/2017 U nknown LIPID GROUP 77086 Chol/HDL Ratio 5.06 ratio 03/29/2017 U nknown LIPID GROUP 91563 NON-HDL Chol 199 mg/dL 03/29/2017 Unkn own LIPID GROUP 87675 LDL Cholesterol 182 mg/dL 03/29/2017 U nknown GFR CALC 3081536 GFR Non Afr Amr >60 mL/min 03/29/2017 Un known GFR CALC 6794742 GFR Afr Amr >60 mL/min 03/29/2017 Unknow n HIV AG/AB 4739482 HIV Ag/Ab Non-Reactive 03/15/2017 Unkno wn VIRAL HEPATITIS PROFILE #2 79357 Hep A IgM Non-Reactive 03/15/2017 Unknown VIRAL HEPATITIS PROFILE #2 97037 Hep B Core IgM Non-Reac tive 03/15/2017 Unknown VIRAL HEPATITIS PROFILE #2 78345 Hepatitis C Ab Non-Reac tive 03/15/2017 Unknown VIRAL HEPATITIS PROFILE #2 31559 Hep Bs Ag Non-Reactive 03/15/2017 Unknown COMPREHENSIVE METABOLIC 50505 AST 23 U/L 2014 Unknown COMPREHENSIVE METABOLIC 17813 ALT 21 IU/L 2014 Unknown COMPREHENSIVE METABOLIC 07092 BUN 13 MG/DL 2014 Unknown COMPREHENSIVE METABOLIC 50446 ALBUMIN 4.3 GM/DL 2014 Unknown COMPREHENSIVE METABOLIC 36536 CHLORIDE 105 MMOL/L 01/07 Unknown COMPREHENSIVE METABOLIC 40834 BILI TOT 0.7 MG/DL 2014 Unknown COMPREHENSIVE METABOLIC 26693 ALK PHOS 51 U/L 2014 Unknown COMPREHENSIVE METABOLIC 03826 SODIUM 139 MMOL/L 01/07 Unknown COMPREHENSIVE METABOLIC 27278 CREATININE 0.85 MG/DL 12/11 Unknown COMPREHENSIVE METABOLIC 22560 CALCIUM 9.5 MG/DL 2014 Unknown COMPREHENSIVE METABOLIC 08041 POTASSIUM 4.4 MMOL/L 01/07 Unknown COMPREHENSIVE METABOLIC 26469 PROT TOT 6.7 GM/DL 2014 Unknown COMPREHENSIVE METABOLIC 53892 Glucose 100 MG/DL 2014 Unknown COMPREHENSIVE METABOLIC 29741 BICARB 27 MMOL/L 2014 Unknown COMPREHENSIVE METABOLIC 46250 ANION GAP 7 MEQ/L 2014 Unknown THYROID STIMULATING HORMONE 18277 TSH 0.900 uIU/ML 01/07/2015 Unknown COMPLETE BLOOD COUNT 5816726 WBC 4.9 10e9/L 01/08/20 15 Unknown COMPLETE BLOOD COUNT 8129241 RBC 4.71 10e12/L 2014 Unknown COMPLETE BLOOD COUNT 1442325 HGB 15.3 g/dL 5 Unknown COMPLETE BLOOD COUNT 1169121 HCT DET 46.1 % 5 Unknown COMPLETE BLOOD COUNT 6797940 MCV 97.9 fL 5 Unknown COMPLETE BLOOD COUNT 2990246 MCH 32.5 pg 5 Unknown COMPLETE BLOOD COUNT 2626516 MCHC 33.2 g/dL 5 Unknown COMPLETE BLOOD COUNT 3666723 PLT 227 10e9/L 01/08/20 15 Unknown COMPLETE BLOOD COUNT 9543092 MPV 10.9 fL 5 Unknown COMPLETE BLOOD COUNT 3624871 VERONIQUE % 53.0 % 5 Unknown COMPLETE BLOOD COUNT 9800666 LY % 35.8 % 5 Unknown COMPLETE BLOOD COUNT 5673775 MON % 8.6 % 5 Unknown COMPLETE BLOOD COUNT 9782470 EOS % 2.2 % 5 Unknown COMPLETE BLOOD COUNT 0699684 BASO % 0.4 % 5 Unknown COMPLETE BLOOD COUNT 1598912 RDW 12.9 % 5 Unknown COMPLETE BLOOD COUNT 7923199 ABS VERONIQUE 2.60 10e9/L 015 Unknown COMPLETE BLOOD COUNT 1949501 ABS LYMPH 1.75 10e9/L 015 Unknown COMPLETE BLOOD COUNT 9582278 ABS MONO 0.42 10e9/L 015 Unknown COMPLETE BLOOD COUNT 7772261 ABS EOS 0.11 10e9/L 015 Unknown COMPLETE BLOOD COUNT 5530125 ABS BASO 0.02 10e9/L 015 Unknown COMPLETE BLOOD COUNT 8065653 RDW-SD 45.7 fL 5 Unknown URIC ACID 33283 URIC ACID 6.7 MG/DL 01/07/2015 Unknown LIPID GROUP 26105 HDL TEST 52 MG/DL 01/07/2015 Unknown LIPID GROUP 49192 TRIG 158 MG/DL 01/07/2015 Unknown LIPID GROUP 92068 TEST LDL 157 MG/DL 01/07/2015 Unknown LIPID GROUP 80291 CHOL 241 MG/DL 01/07/2015 Unknown LIPID GROUP 56710 RCHOL/HDL 4.63 RATIO 01/07/2015 Unknow n LIPID GROUP 04065 NON-HDL CH 189 MG/DL 01/07/2015 Unknow n GFR CALC 0313049 GFR AA >60 ML/MIN 01/07/2015 Unknown GFR CALC 2011797 GFR NON-AA >60 ML/MIN 01/07/2015 Unknown PSA EQUIMOLAR JONATAN 15934 PSA EQ 2.18 NG/ML 5 Unknown FREE T4 32566 FREE T4 1.04 NG/DL 01/07/2015 Unknown GFR CALC 6820874 GFR AA >60 ML/MIN 12/11/2013 Unknown GFR CALC 8341283 GFR NON-AA >60 ML/MIN 12/11/2013 Unknown LIPID GROUP 16754 HDL TEST 54 MG/DL 12/11/2013 Unknown LIPID GROUP 95246 TRIG 81 MG/DL 12/11/2013 Unknown LIPID GROUP 74972 TEST LDL 185 MG/DL 12/11/2013 Unknown LIPID GROUP 40967 CHOL 255 MG/DL 12/11/2013 Unknown LIPID GROUP 94493 RCHOL/HDL 4.72 RATIO 12/11/2013 Unknow n LIPID GROUP 85794 NON-HDL CH 201 MG/DL 12/11/2013 Unknow n URIC ACID 01103 URIC ACID 7.1 MG/DL 12/11/2013 Unknown PSA EQUIMOLAR JONATAN 57962 PSA EQ 3.80 NG/ML 4 Unknown COMPLETE BLOOD COUNT 5874083 WBC 5.9 10e9/L 12/12/19 14 Unknown COMPLETE BLOOD COUNT 1501965 RBC 4.40 10e12/L 2013 Unknown COMPLETE BLOOD COUNT 6602338 HGB 14.5 g/dL 4 Unknown COMPLETE BLOOD COUNT 1056566 HCT DET 43.6 % 4 Unknown COMPLETE BLOOD COUNT 5800743 MCV 99.1 fL 4 Unknown COMPLETE BLOOD COUNT 3319753 MCH 33.0 pg 4 Unknown COMPLETE BLOOD COUNT 0112062 MCHC 33.3 g/dL 4 Unknown COMPLETE BLOOD COUNT 5087695 PLT 289 10e9/L 12/12/19 14 Unknown COMPLETE BLOOD COUNT 5471757 MPV 10.2 fL 4 Unknown COMPLETE BLOOD COUNT 5131944 VERONIQUE % 47.9 % 4 Unknown COMPLETE BLOOD COUNT 3459351 LY % 40.6 % 4 Unknown COMPLETE BLOOD COUNT 3493912 MON % 8.8 % 4 Unknown COMPLETE BLOOD COUNT 5018702 EOS % 2.2 % 4 Unknown COMPLETE BLOOD COUNT 6576577 BASO % 0.5 % 4 Unknown COMPLETE BLOOD COUNT 2045514 RDW 12.9 % 4 Unknown COMPLETE BLOOD COUNT 9119819 ABS VERONIQUE 2.83 10e9/L 014 Unknown COMPLETE BLOOD COUNT 9420766 ABS LYMPH 2.40 10e9/L 014 Unknown COMPLETE BLOOD COUNT 3286050 ABS MONO 0.52 10e9/L 014 Unknown COMPLETE BLOOD COUNT 8377817 ABS EOS 0.13 10e9/L 014 Unknown COMPLETE BLOOD COUNT 0520886 ABS BASO 0.03 10e9/L 014 Unknown COMPLETE BLOOD COUNT 7970548 RDW-SD 45.7 fL 4 Unknown THYROID STIMULATING HORMONE 77597 TSH 1.013 uIU/ML 12/11/2013 Unknown COMPREHENSIVE METABOLIC 10011 AST 20 U/L 2013 Unknown COMPREHENSIVE METABOLIC 22714 ALT 16 IU/L 2013 Unknown COMPREHENSIVE METABOLIC 42543 BUN 17 MG/DL 2013 Unknown COMPREHENSIVE METABOLIC 27990 ALBUMIN 4.6 GM/DL 2013 Unknown COMPREHENSIVE METABOLIC 71357 CHLORIDE 107 MMOL/L 12/11 Unknown COMPREHENSIVE METABOLIC 14660 BILI TOT 0.7 MG/DL 2013 Unknown COMPREHENSIVE METABOLIC 37056 ALK PHOS 53 U/L 2013 Unknown COMPREHENSIVE METABOLIC 29722 SODIUM 140 MMOL/L 12/11 Unknown COMPREHENSIVE METABOLIC 12187 CREATININE 0.84 MG/DL 06/2013 Unknown COMPREHENSIVE METABOLIC 98773 CALCIUM 9.7 MG/DL 2013 Unknown COMPREHENSIVE METABOLIC 31537 POTASSIUM 4.6 MMOL/L 12/11 Unknown COMPREHENSIVE METABOLIC 46878 PROT TOT 6.9 GM/DL 2013 Unknown COMPREHENSIVE METABOLIC 11109 Glucose 97 MG/DL 2013 Unknown COMPREHENSIVE METABOLIC 66272 BICARB 25 MMOL/L 2013 Unknown COMPREHENSIVE METABOLIC 01991 ANION GAP 8 MEQ/L 2013 Unknown FREE T4 74436 FREE T4 1.11 NG/DL 12/11/2013 Unknown ASSAY OF CREATININE 33805 CREATININE 0.98 MG/DL 09/15/19 12 Unknown URIC ACID 12606 URIC ACID 4.9 MG/DL 09/15/2011 Unknown GFR CALC 7711466 GFR AA >60 ML/MIN 09/15/2011 Unknown GFR CALC 8959210 GFR NON-AA >60 ML/MIN 09/15/2011 Unknown THYROID STIMULATING HORMONE 28891 TSH 1.687 uIU/ML 08/01/2011 Unknown FREE T4 81954 FREE T4 0.96 NG/DL 08/01/2011 Unknown SJOGRENS 0445323 SJOGRN A <20 EU/ML 08/01/2011 Unknown SJOGRENS 2349230 SJOGRN B <20 EU/ML 08/01/2011 Unknown SJOGRENS 9211324 NONHIS INT SEE BELO 08/01/2011 Unknown THYRO PERX 3552523 THYRO PERX 175.34 UNITS 07/30/2011 Unkn own DNA AB 9754366 DNA AB 32 IU/ML 07/29/2011 Unknown TITER WENDI 9464758 TITR WENDI 1:160 07/29/2011 Unknown TITER WENDI 6047647 PATTERN NUCLEOLR 07/29/2011 Unknown ANTINUCLEAR ANTIBODY SCREEN 88322 WENDI SCR POSITIVE Unknown COMPREHENSIVE METABOLIC 77733 AST 23 U/L 2011 Unknown COMPREHENSIVE METABOLIC 40983 ALT 26 IU/L 2011 Unknown COMPREHENSIVE METABOLIC 22630 BUN 18 MG/DL 2011 Unknown COMPREHENSIVE METABOLIC 31206 ALBUMIN 4.6 GM/DL 2011 Unknown COMPREHENSIVE METABOLIC 37246 CHLORIDE 105 MMOL/L 07/27 Unknown COMPREHENSIVE METABOLIC 33859 BILI TOT 0.5 MG/DL 2011 Unknown COMPREHENSIVE METABOLIC 94438 ALK PHOS 63 U/L 2011 Unknown COMPREHENSIVE METABOLIC 08770 SODIUM 138 MMOL/L 07/27 Unknown COMPREHENSIVE METABOLIC 49479 CREATININE 0.92 MG/DL 07/09 Unknown COMPREHENSIVE METABOLIC 12279 CALCIUM 9.4 MG/DL 2011 Unknown COMPREHENSIVE METABOLIC 28467 POTASSIUM 3.9 MMOL/L 07/27 Unknown COMPREHENSIVE METABOLIC 95081 PROT TOT 6.7 GM/DL 2011 Unknown COMPREHENSIVE METABOLIC 66267 Glucose 101 MG/DL 2011 Unknown COMPREHENSIVE METABOLIC 84987 BICARB 24 MMOL/L 2011 Unknown COMPREHENSIVE METABOLIC 47971 ANION GAP 9 MEQ/L 2011 Unknown GFR CALC 0797435 GFR AA >60 ML/MIN 07/28/2011 Unknown GFR CALC 8353311 GFR NON-AA >60 ML/MIN 07/28/2011 Unknown ERYTHROCYTE SEDIMENTATION RATE 09753 ESR 2 MM/HR 07/28/2011 Unknown URIC ACID 46182 URIC ACID 5.8 MG/DL 07/28/2011 Unknown C-REACTIVE PROTEIN (CRP) QUANT 09969 CRP 0.2 MG/DL 07/28/2011 Unknown TITER WENDI [id number] TITR WENDI 1:160 05/26/2011 Unknown TITER WENDI [id number] PATTERN NUCLEOLR 05/26/2011 Unknown RA FACTOR 30508 RA FACTOR <20.0 IU/ML 05/26/2011 Unknown ANTINUCLEAR ANTIBODY SCREEN 40303 WENDI SCR POSITIVE Unknown URIC ACID 96236 URIC ACID 8.7 MG/DL 05/25/2011 Unknown PSA EQUIMOLAR JONATAN 02695 PSA EQ 2.79 NG/ML 2 Unknown LIPID GROUP 51362 HDL TEST 47 MG/DL 05/25/2011 Unknown LIPID GROUP 63115 TRIG 198 MG/DL 05/25/2011 Unknown LIPID GROUP 70005 TEST LDL 180 MG/DL 05/25/2011 Unknown LIPID GROUP 30035 CHOL 267 MG/DL 05/25/2011 Unknown LIPID GROUP 89492 RCHOL/HDL 5.68 RATIO 05/25/2011 Unknow n COMPREHENSIVE METABOLIC 39697 AST 21 U/L 2011 Unknown COMPREHENSIVE METABOLIC 56844 ALT 21 IU/L 2011 Unknown COMPREHENSIVE METABOLIC 29813 BUN 16 MG/DL 2011 Unknown COMPREHENSIVE METABOLIC 70407 ALBUMIN 4.4 GM/DL 2011 Unknown COMPREHENSIVE METABOLIC 50425 CHLORIDE 105 MMOL/L 05/25 Unknown COMPREHENSIVE METABOLIC 82124 BILI TOT 0.7 MG/DL 2011 Unknown COMPREHENSIVE METABOLIC 93430 ALK PHOS 60 U/L 2011 Unknown COMPREHENSIVE METABOLIC 98989 SODIUM 139 MMOL/L 05/25 Unknown COMPREHENSIVE METABOLIC 23048 CREATININE 0.92 MG/DL 05/11 Unknown COMPREHENSIVE METABOLIC 27781 CALCIUM 9.4 MG/DL 2011 Unknown COMPREHENSIVE METABOLIC 63796 POTASSIUM 4.1 MMOL/L 05/25 Unknown COMPREHENSIVE METABOLIC 13985 PROT TOT 7.0 GM/DL 2011 Unknown COMPREHENSIVE METABOLIC 55378 Glucose 108 MG/DL 2011 Unknown COMPREHENSIVE METABOLIC 11516 BICARB 25 MMOL/L 2011 Unknown COMPREHENSIVE METABOLIC 46265 ANION GAP 9 MEQ/L 2011 Unknown GFR CALC [id number] GFR AA >60 ML/MIN 05/25/2011 Unknown GFR CALC [id number] GFR NON-AA >60 ML/MIN 05/25/2011 Unknown COMPLETE BLOOD COUNT 24415 WBC 5.6 10e9/L 05/25/19 12 Unknown COMPLETE BLOOD COUNT 87036 RBC 5.01 10e12/L 2011 Unknown COMPLETE BLOOD COUNT 86401 HGB 15.8 g/dL 2 Unknown COMPLETE BLOOD COUNT 73995 HCT DET 46.1 % 2 Unknown COMPLETE BLOOD COUNT 34900 MCV 92.0 fL 2 Unknown COMPLETE BLOOD COUNT 27104 MCH 31.5 pg 2 Unknown COMPLETE BLOOD COUNT 65868 MCHC 34.3 g/dL 2 Unknown COMPLETE BLOOD COUNT 76232 PLT 246 10e9/L 05/25/19 12 Unknown COMPLETE BLOOD COUNT 43692 MPV 10.3 fL 2 Unknown COMPLETE BLOOD COUNT 19979 VERONIQUE % 47.1 % 2 Unknown COMPLETE BLOOD COUNT 38221 LY % 41.0 % 2 Unknown COMPLETE BLOOD COUNT 63316 MON % 8.9 % 2 Unknown COMPLETE BLOOD COUNT 45980 EOS % 2.5 % 2 Unknown COMPLETE BLOOD COUNT 30806 BASO % 0.5 % 2 Unknown COMPLETE BLOOD COUNT 35289 RDW 12.7 % 2 Unknown COMPLETE BLOOD COUNT 66974 ABS VERONIQUE 2.64 10e9/L 012 Unknown COMPLETE BLOOD COUNT 86507 ABS LYMPH 2.30 10e9/L 012 Unknown COMPLETE BLOOD COUNT 91203 ABS MONO 0.50 10e9/L 012 Unknown COMPLETE BLOOD COUNT 48080 ABS EOS 0.14 10e9/L 012 Unknown COMPLETE BLOOD COUNT 72046 ABS BASO 0.03 10e9/L 012 Unknown COMPLETE BLOOD COUNT 95292 RDW-SD 41.3 fL 2 Unknown COMPREHENSIVE METABOLIC 85033 AST 18 U/L 2010 Unknown COMPREHENSIVE METABOLIC 86844 ALT 14 IU/L 2010 Unknown COMPREHENSIVE METABOLIC 87643 BUN 12 MG/DL 2010 Unknown COMPREHENSIVE METABOLIC 33583 ALBUMIN 4.6 GM/DL 2010 Unknown COMPREHENSIVE METABOLIC 37637 CHLORIDE 102 MMOL/L 02/01 Unknown COMPREHENSIVE METABOLIC 86918 BILI TOT 0.6 MG/DL 2010 Unknown COMPREHENSIVE METABOLIC 30294 ALK PHOS 66 U/L 2010 Unknown COMPREHENSIVE METABOLIC 58298 SODIUM 139 MMOL/L 02/01 Unknown COMPREHENSIVE METABOLIC 10018 CREATININE 0.92 MG/DL 01/09 Unknown COMPREHENSIVE METABOLIC 13668 CALCIUM 9.8 MG/DL 2010 Unknown COMPREHENSIVE METABOLIC 74240 POTASSIUM 4.1 MMOL/L 02/01 Unknown COMPREHENSIVE METABOLIC 11543 PROT TOT 7.0 GM/DL 2010 Unknown COMPREHENSIVE METABOLIC 10274 Glucose 101 MG/DL 2010 Unknown COMPREHENSIVE METABOLIC 34945 BICARB 25 MMOL/L 2010 Unknown COMPREHENSIVE METABOLIC 93507 ANION GAP 12 MEQ/L 2010 Unknown GFR CALC [id number] GFR AA >60 ML/MIN 02/01/2011 Unknown GFR CALC [id number] GFR NON-AA >60 ML/MIN 02/01/2011 Unknown LIPID GROUP 44118 HDL TEST 44 MG/DL 02/01/2011 Unknown LIPID GROUP 76987 TRIG 157 MG/DL 02/01/2011 Unknown LIPID GROUP 87766 TEST LDL 193 MG/DL 02/01/2011 Unknown LIPID GROUP 74879 CHOL 268 MG/DL 02/01/2011 Unknown LIPID GROUP 03136 RCHOL/HDL 6.09 RATIO 02/01/2011 Unknow n FREE T4 89097 FREE T4 1.04 NG/DL 02/01/2011 Unknown COMPLETE BLOOD COUNT 63787 WBC 6.4 10e9/L 02/02/20 11 Unknown COMPLETE BLOOD COUNT 12950 RBC 4.56 10e12/L 2010 Unknown COMPLETE BLOOD COUNT 26244 HGB 14.4 g/dL 1 Unknown COMPLETE BLOOD COUNT 88377 HCT DET 43.0 % 1 Unknown COMPLETE BLOOD COUNT 24308 MCV 94.3 fL 1 Unknown COMPLETE BLOOD COUNT 50416 MCH 31.6 pg 1 Unknown COMPLETE BLOOD COUNT 72240 MCHC 33.5 g/dL 1 Unknown COMPLETE BLOOD COUNT 02089 PLT 300 10e9/L 02/02/20 11 Unknown COMPLETE BLOOD COUNT 47211 MPV 9.9 fL 1 Unknown COMPLETE BLOOD COUNT 15533 VERONIQUE % 38.5 % 1 Unknown COMPLETE BLOOD COUNT 25152 LY % 49.1 % 1 Unknown COMPLETE BLOOD COUNT 22613 MON % 10.1 % 1 Unknown COMPLETE BLOOD COUNT 48962 EOS % 1.7 % 1 Unknown COMPLETE BLOOD COUNT 28585 BASO % 0.6 % 1 Unknown COMPLETE BLOOD COUNT 71324 RDW 15.1 % 1 Unknown COMPLETE BLOOD COUNT 99371 ABS VERONIQUE 2.46 10e9/L 011 Unknown COMPLETE BLOOD COUNT 23608 ABS LYMPH 3.14 10e9/L 011 Unknown COMPLETE BLOOD COUNT 24967 ABS MONO 0.65 10e9/L 011 Unknown COMPLETE BLOOD COUNT 78152 ABS EOS 0.11 10e9/L 011 Unknown COMPLETE BLOOD COUNT 49200 ABS BASO 0.04 10e9/L 011 Unknown COMPLETE BLOOD COUNT 54007 RDW-SD 50.6 fL 1 Unknown THYROID STIMULATING HORMONE 16679 TSH 1.128 uIU/ML 02/01/2011 Unknown PSA EQUIMOLAR JONATAN 08622 PSA EQ 3.83 NG/ML 1 Unknown VCA AB G/M [id number] EBV G VCA 3.34 12/03/2010 Unknown VCA AB G/M 7301364 EBV M VCA 0.12 12/03/2010 Unknown EB GARY AG [id number] EB GARY AG 0.47 12/03/2010 Unknown EB NUCL AB 1427262 EB NUCL AB 3.72 12/03/2010 Unknown COMPLETE BLOOD COUNT 46881 WBC 8.0 10e9/L 12/03/19 11 Unknown COMPLETE BLOOD COUNT 85510 RBC 4.93 10e12/L 2010 Unknown COMPLETE BLOOD COUNT 98242 HGB 15.7 g/dL 1 Unknown COMPLETE BLOOD COUNT 45699 HCT DET 45.4 % 1 Unknown COMPLETE BLOOD COUNT 00759 MCV 92.1 fL 1 Unknown COMPLETE BLOOD COUNT 44046 MCH 31.8 pg 1 Unknown COMPLETE BLOOD COUNT 43764 MCHC 34.6 g/dL 1 Unknown COMPLETE BLOOD COUNT 60101 PLT 248 10e9/L 12/03/19 11 Unknown COMPLETE BLOOD COUNT 33121 MPV 10.4 fL 1 Unknown COMPLETE BLOOD COUNT 27371 VERONIQUE % 74.0 % 1 Unknown COMPLETE BLOOD COUNT 44271 LY % 19.6 % 1 Unknown COMPLETE BLOOD COUNT 57476 MON % 5.2 % 1 Unknown COMPLETE BLOOD COUNT 93455 EOS % 1.1 % 1 Unknown COMPLETE BLOOD COUNT 69087 BASO % 0.1 % 1 Unknown COMPLETE BLOOD COUNT 91778 RDW 12.5 % 1 Unknown COMPLETE BLOOD COUNT 07229 ABS VERONIQUE 5.92 10e9/L 011 Unknown COMPLETE BLOOD COUNT 74989 ABS LYMPH 1.57 10e9/L 011 Unknown COMPLETE BLOOD COUNT 63578 ABS MONO 0.42 10e9/L 011 Unknown COMPLETE BLOOD COUNT 41094 ABS EOS 0.09 10e9/L 011 Unknown COMPLETE BLOOD COUNT 74408 ABS BASO 0.01 10e9/L 011 Unknown COMPLETE BLOOD COUNT 00196 RDW-SD 41.1 fL 1 Unknown URIC ACID 35342 URIC ACID 9.3 MG/DL 12/02/2010 Unknown Procedures Procedure Codes Date URINALYSIS NONAUTO W/O SCOPE CPT-4: 45674 06/20/2019 URINE CULTURE/ COLONY COUNT CPT-4: 11427 06/20/2019 DEXAMETHASONE SODIUM PHOS CPT-4: J1100 05/31/2019 THER/PROPH/DIAG INJ SC/IM CPT-4: 11851 05/31/2019 THER/PROPH/DIAG INJ SC/IM CPT-4: 23890 05/17/2019 TRIAMCINOLONE ACET INJ NOS CPT-4: J3301 05/17/2019 DRAINAGE OF SKIN ABSCESS CPT-4: 11028 01/23/2019 AEROBIC WOUND CULTURE & STN CPT-4: 93318 01/23/2019 ROUTINE VENIPUNCTURE CPT-4: 11937 03/29/2017 ASSAY THYROID STIM HORMONE CPT-4: 92744 03/29/2017 ASSAY OF FREE THYROXINE CPT-4: 53889 03/29/2017 COMPREHEN METABOLIC PANEL CPT-4: 97900 03/29/2017 COMPLETE CBC W/AUTO DIFF WBC CPT-4: 13215 03/29/2017 LIPID PANEL CPT-4: 98472 03/29/2017 ASSAY OF BLOOD/URIC ACID CPT-4: 98487 03/29/2017 RBC SED RATE AUTOMATED CPT-4: 13523 03/29/2017 ROUTINE VENIPUNCTURE CPT-4: 81121 03/15/2017 ACUTE HEPATITIS PANEL CPT-4: 52865 03/15/2017 HIV-1/HIV-2 1 RESULT ANTBDY CPT-4: 98315 03/15/2017 EXC TR-EXT B9+SHASHA 0.5 CM< CPT-4: 51613 03/15/2017 EXC TR-EXT B9+SHASHA 1.1-2 CM CPT-4: 25833 03/15/2017 URINALYSIS NONAUTO W/O SCOPE CPT-4: 11654 01/07/2015 URINE CULTURE/ COLONY COUNT CPT-4: 02065 01/07/2015 ROUTINE VENIPUNCTURE CPT-4: 21036 01/07/2015 ASSAY OF FREE THYROXINE CPT-4: 29965 01/07/2015 ASSAY THYROID STIM HORMONE CPT-4: 24088 01/07/2015 COMPREHEN METABOLIC PANEL CPT-4: 64501 01/07/2015 COMPLETE CBC W/AUTO DIFF WBC CPT-4: 67582 01/07/2015 LIPID PANEL CPT-4: 72556 01/07/2015 ASSAY OF PSA TOTAL CPT-4: 50528 01/07/2015 ASSAY OF BLOOD/URIC ACID CPT-4: 69895 01/07/2015 ROUTINE VENIPUNCTURE CPT-4: 31337 12/11/2013 ASSAY OF FREE THYROXINE CPT-4: 91586 12/11/2013 ASSAY THYROID STIM HORMONE CPT-4: 56790 12/11/2013 COMPREHEN METABOLIC PANEL CPT-4: 91606 12/11/2013 COMPLETE CBC W/AUTO DIFF WBC CPT-4: 73520 12/11/2013 LIPID PANEL CPT-4: 91504 12/11/2013 ASSAY OF BLOOD/URIC ACID CPT-4: 13944 12/11/2013 ASSAY OF PSA TOTAL CPT-4: 46712 12/11/2013 URINE CULTURE/ COLONY COUNT CPT-4: 79308 01/02/2013 AEROBIC WOUND CULTURE & STN CPT-4: 35592 10/10/2011 DRAINAGE OF SKIN ABSCESS CPT-4: 97285 10/10/2011 ASSAY OF CREATININE CPT-4: 08104 09/15/2011 ASSAY OF BLOOD/URIC ACID CPT-4: 38743 09/15/2011 ROUTINE VENIPUNCTURE CPT-4: 01794 07/28/2011 ANTINUCLEAR ANTIBODIES CPT-4: 21570 07/28/2011 RBC SED RATE AUTOMATED CPT-4: 84950 07/28/2011 ASSAY OF BLOOD/URIC ACID CPT-4: 56468 07/28/2011 COMPREHEN METABOLIC PANEL CPT-4: 51183 07/28/2011 C-REACTIVE PROTEIN CPT-4: 77513 07/28/2011 THYRO PERX CPT-4: 0002524 07/28/2011 DNA AB CPT-4: 6354786 07/28/2011 SJOGRENS CPT-4: 9930988 07/28/2011 ASSAY OF FREE THYROXINE CPT-4: 58948 07/28/2011 ASSAY THYROID STIM HORMONE CPT-4: 16153 07/28/2011 ROUTINE VENIPUNCTURE CPT-4: 46465 05/25/2011 COMPREHEN METABOLIC PANEL CPT-4: 98105 05/25/2011 COMPLETE CBC W/AUTO DIFF WBC CPT-4: 99098 05/25/2011 ANTINUCLEAR ANTIBODIES CPT-4: 27581 05/25/2011 RHEUMATOID FACTOR QUANT CPT-4: 13728 05/25/2011 ASSAY OF PSA TOTAL CPT-4: 27019 05/25/2011 ASSAY OF BLOOD/URIC ACID CPT-4: 93597 05/25/2011 LIPID PANEL CPT-4: 83996 05/25/2011 ROUTINE VENIPUNCTURE CPT-4: 92366 02/01/2011 ASSAY OF FREE THYROXINE CPT-4: 78307 02/01/2011 ASSAY THYROID STIM HORMONE CPT-4: 10827 02/01/2011 COMPREHEN METABOLIC PANEL CPT-4: 33283 02/01/2011 COMPLETE CBC W/AUTO DIFF WBC CPT-4: 68665 02/01/2011 LIPID PANEL CPT-4: 73054 02/01/2011 ASSAY OF PSA TOTAL CPT-4: 78082 02/01/2011 ROUTINE VENIPUNCTURE CPT-4: 92122 12/02/2010 ASSAY OF BLOOD/URIC ACID CPT-4: 83428 12/02/2010 EB VIRUS VCA G/M + EBNA + EA CPT-4: 05326|60513 x 2|94857 COMPLETE CBC W/AUTO DIFF WBC CPT-4: 29008 12/02/2010 COMPREHEN METABOLIC PANEL CPT-4: 91789 09/14/2009 ASSAY OF BLOOD/URIC ACID CPT-4: 03705 09/14/2009 ROUTINE VENIPUNCTURE CPT-4: 04039 09/14/2009 URINALYSIS NONAUTO W/O SCOPE CPT-4: 76945 09/01/2009 Vital Signs Date Vital 06/20/2019 Respiratory [...] 1: 118/64 Code: 8480-6 BMI: 29.7 Code: 92473-0 Heart Rate 1: 100 bpm Height: 5'6" Respiratory Rate: 22 bpm SpO2: 95% Tempera ture: 36.7 (C) / 98.0 (F) Weight: 187 lbs 02/27/2017 Blood Pressure 1: 132/76 Code: 8480-6 BMI: 30.8 Code: 67444-5 Heart Rate 1: 96 bpm Height: 5'6" Respiratory Rate: 22 bpm SpO2: 98% Tempera ture: 36.6 (C) / 97.8 (F) Weight: 194 lbs 03/31/2015 Blood Pressure 1: 128/90 Code: 8480-6 Heart Rate 1: 88 bpm Respiratory Rate: 20 bpm Temperature: 36.9 (C) / 98.4 (F) Weight: 192 lbs 01/07/2015 Blood Pressure 1: 132/80 Code: 8480-6 BMI: 30.2 Code: 85867-7 Heart Rate 1: 78 bpm Height: 5'6" Respiratory Rate: 22 bpm Temperature: 36 .7 (C) / 98.1 (F) Weight: 190 lbs 04/15/2014 Blood Pressure 1: 136/88 Code: 8480-6 BMI: 31.0 Code: 81904-1 Heart Rate 1: 84 bpm Height: 5'6" Respiratory Rate: 20 bpm Temperature: 36 .1 (C) / 97.0 (F) Weight: 192 lbs 12/10/2013 Blood Pressure 1: 142/90 Code: 8480-6 BMI: 29.1 Code: 26323-0 Heart Rate 1: 72 bpm Height: 5'7" Respiratory Rate: 20 bpm Temperature: 36 .6 (C) / 97.8 (F) Weight: 186 lbs 05/02/2013 Blood Pressure 1: 146/96 Code: 8480-6 BMI: 30.5 Code: 73149-7 Heart Rate 1: 88 bpm Height: 5'7" Respiratory Rate: 20 bpm Temperature: 37 .0 (C) / 98.6 (F) Weight: 195 lbs 01/02/2013 Blood Pressure 1: 132/84 Code: 8480-6 BMI: 30.2 Code: 94539-0 Heart Rate 1: 80 bpm Height: 5'7" Respiratory Rate: 20 bpm Temperature: 36 .9 (C) / 98.4 (F) Weight: 193 lbs 10/10/2011 Blood Pressure 1: 122/68 Code: 8480-6 BMI: 35.7 Code: 96151-9 Heart Rate 1: 84 bpm Height: 5'2" Temperature: 36.9 (C) / 98.5 (F) Weight: 195 lbs 08/12/2011 Blood Pressure 1: 110/80 Code: 8480-6 BMI: 36.9 Code: 97832-4 Heart Rate 1: 80 bpm Height: 5'2" Temperature: 36.4 (C) / 97.6 (F) Weight: 202 lbs 08/04/2011 Blood Pressure 1: 126/80 Code: 8480-6 BMI: 37.9 Code: 81715-3 Heart Rate 1: 76 bpm Height: 5'2" Respiratory Rate: 20 bpm Temperature: 37 .0 (C) / 98.6 (F) Weight: 207 lbs 05/24/2011 Blood Pressure 1: 122/82 Code: 8480-6 BMI: 37.7 Code: 28295-2 Heart Rate 1: 68 bpm Height: 5'2" Temperature: 36.7 (C) / 98.1 (F) Weight: 206 lbs 04/15/2011 Blood Pressure 1: 128/82 Code: 8480-6 BMI: 37.1 Code: 25593-3 Heart Rate 1: 68 bpm Height: 5'2" [...] 1: 106/62 Code: 8480-6 BMI: 36.8 Code: 70534-6 Heart Rate 1: 90 bpm Height: 5'2" SpO2: 94% Temperature: 36.4 (C) / 97.6 (F) Weight: 201 lbs 12/02/2010 Blood Pressure 1: 142/90 Code: 8480-6 BMI: 36.8 Code: 36820-8 Heart Rate 1: 96 bpm Height: 5'2" [...] success Encounters Encounter Performer Location Codes Date ([id number]) OFFICE/OUTPATIENT VISIT EST Diagnosis: Enlarged testicle[ICD10: N50.89] Diagnosis: Polyuria[ICD10: R35.8] Azra TOVAR CPT-4: 83545 06/20/2019 ([id number]) OFFICE/OUTPATIENT VISIT EST Diagnosis: Acute contact dermatitis[ICD10: L25.9] Azra BROWNLEE [employer] CPT-4: 07341 05/31/2019 ([id number]) OFFICE/OUTPATIENT VISIT EST Diagnosis: Acute contact dermatitis[ICD10: L25.9] Diagnosis: Acute sinusitis[ICD10: J01.90] Sylvie SAINZ [facility] CPT-4: 72379 05/17/2019 ([id number]) OFFICE/OUTPATIENT VISIT EST Diagnosis: Acute gastritis without bleeding[ICD10: K29.00] Diagnosis: Essential (primary) hypertension[ICD10: I10] Diagnosis: Hyperlipidemia, unspecified[ICD10: E78.5] Azra COOK [employer]AN CLAUDE [employer] CPT-4: 07746 10/31/2018 ([id number]) OFFICE/OUTPATIENT VISIT EST Diagnosis: Acute gastritis without bleeding[ICD10: K29.00] Azra BYRNE [employer] [facility] CPT-4: 66832 01/18/2018 ([id number]) OFFICE/OUTPATIENT VISIT EST Diagnosis: Hyperlipidemia, unspecified[ICD10: E78.5] Diagnosis: Essential (primary) hypertension[ICD10: I10] Diagnosis: Weakness[ICD10: R53.1] Diagnosis: Sebaceous cyst[ICD10: L72.3] Diagnosis: Idiopathic gout, unspecified site[ICD10: M10.00] Sylvie BYRNE [employer] [facility] CPT-4: 24331 03/29/2017 OFFICE/OUTPATIENT VISIT EST Diagnosis: Pain in right knee[ICD10: M25.561] Azra BYRNE [employer] [facility] CPT-4: 45544 03/13/2017 OFFICE/OUTPATIENT VISIT EST Diagnosis: Pain in right leg[ICD10: M79.604] Diagnosis: Sebaceous cyst[ICD10: L72.3] Azra BYNRE [employer] [facility] CPT-4: 59672 02/27/2017 OFFICE/OUTPATIENT VISIT EST Diagnosis: Local infection of the skin and subcutaneous tissue, unspecified[ICD10: L08.9] Diagnosis: Essential (primary) hypertension[ICD10: I10] Diagnosis: Hyperlipidemia, unspecified[ICD10: E78.5] Dagmar BYRNE [employer] [facility] CPT-4: 22569 03/31/2015 ([id number]) PREV VISIT EST AGE 40-64 Diagnosis: History of chest pain[ICD9: V13.89] Diagnosis: Right flank pain[ICD9: 789.09] Diagnosis: ROUTINE MEDICAL EXAM[ICD9: V70.0] Diagnosis: HYPERTENSION[ICD9: 401.9] Diagnosis: HYPERLIPIDEMIA NEC/NOS[ICD9: 272.4] Diagnosis: Colon polyps[ICD9: 211.3] Diagnosis: HEMATURIA NOS[ICD9: 599.70] Dagmar BYRNE [employer] [facility] CPT-4: 76661 01/07/2015 OFFICE/OUTPATIENT VISIT EST Diagnosis: COUGH[ICD9: 786.2] Diagnosis: Rectal itching[ICD9: 698.0] Dagmar BYRNE [facility] CPT-4: 38126 04/15/2014 ([id number]) OFFICE/OUTPATIENT VISIT EST Diagnosis: ROUTINE MEDICAL EXAM[ICD9: V70.0] Diagnosis: GOUT[ICD9: 274.9] Diagnosis: HYPERLIPIDEMIA NEC/NOS[ICD9: 272.4] Diagnosis: HYPERTENSION[ICD9: 401.9] Sylvie SILVERIO [facility] CPT-4: 62374 12/11/2013 ([id number]) OFFICE/OUTPATIENT VISIT EST Diagnosis: Shingles[ICD9: 053.9] Sylvie BYRNE [facility] CPT-4: 63764 12/10/2013 ([id number]) OFFICE/OUTPATIENT VISIT EST Diagnosis: HYPERTENSION[ICD9: 401.9] Diagnosis: Colon polyps[ICD9: 211.3] Diagnosis: Stress reaction[ICD9: 308.9] Sylvie BYRNE [facility] CPT-4: 59208 05/02/2013 ([id number]) OFFICE/OUTPATIENT VISIT EST Diagnosis: URINARY TRACT INFECTION[ICD9: 599.0] Sylvie BYRNE [facility] CPT-4: 19293 01/02/2013 OFFICE/OUTPATIENT VISIT EST Diagnosis: CELLULITIS OF TRUNK[ICD9: 682.2] Diagnosis: SPRAIN SHOULDER/ARM[ICD9: 840.9] Liza Ragsdale SYLVIE BYRNE [facility] CPT-4: 72019 10/10/2011 ([id number]) OFFICE/OUTPATIENT VISIT EST Diagnosis: GOUT[ICD9: 274.9] Sylvie ChapaFrancisco [facility]O [facility] CPT-4: 95088 09/15/2011 OFFICE/OUTPATIENT VISIT EST Diagnosis: DIARRHEA[ICD9: 787.91] Sylvie Santoroscarlettdelmi WILSONSYLVIE SammiFrancisco YVANMARLIN Cagle [facility] CPT-4: 46675 08/12/2011 ([id number]) OFFICE/OUTPATIENT VISIT EST Diagnosis: GOUT[ICD9: 274.9] Diagnosis: Positive WENDI (antinuclear antibody)[ICD9: 795.79] Sylvie WILSONLINE SammiFrancisco [facility] CPT-4: 16082 08/04/2011 OFFICE/OUTPATIENT VISIT EST Diagnosis: Rash[ICD9: 782.1] Diagnosis: Joint pain[ICD9: 719.40] Diagnosis: Hyperlipidemia[ICD9: 272.4] Sylvie Santoroscarlettdelmi SYLVIE SFrancisco Kulkarni [facility] CPT-4: 75568 05/24/2011 OFFICE/OUTPATIENT VISIT EST Diagnosis: PHARYNGITIS, ACUTE[ICD9: 462] Diagnosis: COUGH[ICD9: 786.2] Diagnosis: SINUSITIS, ACUTE[ICD9: 461.9] Sylvie WILSONLINE SammiFrancisco [facility] CPT-4: 91894 04/15/2011 OFFICE/OUTPATIENT VISIT EST Diagnosis: Clavicle fracture[ICD9: 810.00] Sylvie Yvanscarlettdelmi SYLVIE SammiFrancisco YVANSCARLETTDELMI [facility] CPT-4: 98798 01/13/2011 OFFICE/OUTPATIENT VISIT EST Diagnosis: Clavicle pain[ICD9: 719.41] Sylvie Byrne SYLVIE S. Shad [facility] CPT-4: 75446 12/23/2010 OFFICE/OUTPATIENT VISIT EST Diagnosis: Arm pain[ICD9: 729.5] Diagnosis: SPASM OF MUSCLE[ICD9: 728.85] Diagnosis: Neck pain[ICD9: 723.1] Sylvie Cagle [facility] CPT-4: 30067 12/15/2010 OFFICE/OUTPATIENT VISIT EST Diagnosis: HYPERTENSION[ICD9: 401.9] Diagnosis: PHARYNGITIS, ACUTE[ICD9: 462] Diagnosis: MALAISE AND FATIGUE[ICD9: 780.79] Diagnosis: GOUT[ICD9: 274.9] Sylvie Yvanjean claude SAINZ SammiFrancisco [facility] CPT-4: 55647 12/02/2010 ([id number]) OFFICE/OUTPATIENT VISIT, EST Sylvie Yvanjean claude JAUREGUI GUICHIQUITA SammiFrancisco YVANJEAN CLAUDE [facility] CPT-4: 62713 04/19/2010 ([id number]) OFFICE/OUTPATIENT VISIT, NHAN BYRNE DO [employer] CPT-4: 29437 04/14/2010 ([id number]) OFFICE/OUTPATIENT VISIT, NHAN BYRNE DO [employer] CPT-4: 77788 09/01/2009 Plan of Care Planned Activity Notes [...] Care Plan: US EXAM SCROTUM LOINC : 54378 -7 Pending 06/20/2019 Visit Diagnosis Plan: Acute contact dermatitis Discuss ion: skin scrape obtained due to recurrent issue. 4 mg dexamethasone given in office. prednisone prescribed to take as directed. instructed to change laundry detergent back to original and wash a week's worth of clothes in other detergent to see if problem improves. ICD-9 : 692.9 ICD-10 : L25.9 05/31/2019 Appointment: Azra Bradley [address] [place] [address] ACUTE ILLNESS 05/31/2019 Patient Education: prednisone- [employer] Coupon [phone] https://www.[employer].Advisity/samplemd/resources/getResource/61/[email or web address] Completed 05/31/2019 Visit Diagnosis Plan: Acute contact dermatitis Discuss ion: Kenalog 40mg IM now Cover with [employer] Call in 1week on how doing Medrol Dose Pack ICD-9 : 692.9 ICD-10 : L25.9 05/17/2019 Appointment: Sylvie Byrne WPtel: [phone] ACUTE ILLNESS 05/17/2019 Patient Education: Medrol (Nicholas)- [employer] Coupon [phone] https://www.[employer].Advisity/samplemd/resources/getResource/61/[email or web address] Completed 05/17/2019 Visit Diagnosis Plan: Abscess of chest wall Discussion : patient has large amount of induration still noted despite recent drainage and antibiotics. dr. najera's office was called and they were able to see patient today. patient was sent over there for possible surgery. ICD-9 : 682.2 ICD-10 : L02.213 01/25/2019 Appointment: Azra Bradley [address] [place], [place] [phone] FOLLOW UP 01/25/2019 Visit Diagnosis Plan: Abscess [...] ICD-10 : L02.213 01/23/2019 Appointment: Azra Bradley [address] [place], [place] [phone] Patient called 01/21/19 to [facility] 01/23 appt OF [facility] 01/23/2019 Patient Education: clindamycin HCl- [employer] Coupon [id number] https://www.[employer].Advisity/samplemd/resources/getResource/61/[email or web address] Completed 01/23/2019 Appointment: Azra Bradley [address] [place], [place] [phone] US CANCELED 01/16/2019 Visit Diagnosis Plan: Acute [...] ICD-10 : E78.5 10/31/2018 Appointment: Azra Bradley [address] [place], [place] [phone] ACUTE ILLNESS 10/31/2018 Patient Education: High Blood [...] ICD-10 : K29.00 01/18/2018 Appointment: Azra Bradley [address] [place] [address] ACUTE ILLNESS 01/18/2018 Patient Education: Patient Medication Summary Completed 01/18/2018 Appointment: Sylvie Byrne WPtel: [phone] [facility] US LAB 03/29/2017 Patient Education: Patient Medication [...] ICD-10 : L72.3 03/15/2017 Appointment: Azra Bradley [address] [place], [place] [phone] OFFICE SURGERY 03/15/2017 Patient Education: Patient Medication [...] : M25.561 03/13/2017 Appointment: Azra Bradley [address] [facility] ACUTE ILLNESS 03/13/2017 Patient Education: Patient Medication Summary Completed 03/13/2017 Care Plan: X-RAY EXAM OF KNEE 1 OR 2 ATUL [place] : 49159-0 Pending 03/13/2017 Visit Diagnosis Plan: Sebaceous cyst [...] : M79.604 02/27/2017 Appointment: Azra Bradley [address] [facility] ACUTE ILLNESS 02/27/2017 Patient Education: Patient Medication Summary Completed 02/27/2017 Appointment: Katerina Sousa WPtel: [phone] [facility] ACUTE ILLNESS 08/21/2015 Visit Plan: Has been [...] back. 03/31/2015 Appointment: [phone] [facility] 03/30 Confirmed ~sl FOLLOW UP 03/31/2015 Patient [...] - Candido 01/07/2015 Appointment: Dagmar Ahmadi WPtel: [address] [place] [address] 01/06 appointment confirmed cn Annual Well Visit 01/07/2015 Patient Education: Patient Medication Summary Completed 01/07/2015 Patient Education: [facility] - [employer] - Lisinopril - 18-64 - Dynamic Portal ID Completed 01/07/2015 Appointment: Sylvie Byrne WPtel: [address] [place] [address] ACUTE ILLNESS 08/26/2014 Appointment: Dagmar Ahmadi WPtel: [address] [place] [address] ACUTE ILLNESS 04/15/2014 Patient Education: Patient Medication Summary Completed 04/15/2014 Appointment: Sylvie Byrne WPtel: [address] [place] [address] US LAB 12/11/2013 Patient Education: Patient Medication Summary Completed 12/11/2013 Visit Plan: Check CBC, CMP, TSH, Free T4 , Lipids, uric acid, PSA--pt will return in AM for fasting lab Finish acyclovir Discussed Zostavax down road 12/10/2013 Appointment: Sylvie Byrne WPtel: [address] [place] [address] 12/06 left message FOLLOW UP 12/10/2013 Patient Education: Patient Medication Summary Completed 12/10/2013 Visit Plan: Lisinopril 20mg daily Stress Reducers and trial of fluoxetine 10mg q am Proceed with colonoscopy Check fasting lab 05/02/2013 Appointment: Sylvie Byrne WPtel: [address] [place] [address] ACUTE ILLNESS 05/02/2013 Patient Education: Patient Medication Summary Completed 05/02/2013 Appointment: Sylvie Byrne WPtel: [address] [place] [address] ACUTE ILLNESS 01/02/2013 Patient Education: Patient Medication Summary Completed 01/02/2013 Appointment: Liza Ragsdale WPtel: [address] [place], [place] [id number] ACUTE ILLNESS 10/10/2011 Patient Education: Patient Medication Summary Completed 10/10/2011 Appointment: Sylvie Byrne WPtel: [address] [place], [place] [id number] [place] LAB 09/15/2011 Patient Education: Patient Medication [...] Will seek re-eval if symptoms worsen or slubber frame changer the weekend. 08/12/2011 Appointment: Liza Ragsdale WPtel: [address] [place] [address] ACUTE ILLNESS 08/12/2011 Patient Education: Patient Medication Summary Completed 08/12/2011 Visit Plan: Continue increased dose of a llopurinol and daily colcrys Recheck thyroid lab, uric acid and PSA in 3mos Will hold on NSAID at this time due to history of GERD 08/04/2011 Appointment: Sylvie Byrne WPtel: [address] [place], [place] [phone] FOLLOW UP 08/04/2011 Patient Education: Patient Medication Summary Completed 08/04/2011 Appointment: Sylvie Byrne WPtel: [address] [place], [place] [id number] [place] LAB 07/28/2011 Patient Education: Patient Medication Summary Completed 07/28/2011 Appointment: Sylvie Byrne WPtel: [address] [place], [place] [phone] [place] LAB 05/25/2011 Patient Education: Patient Medication [...] at night. 05/24/2011 Appointment: Liza Ragsdale WPtel: [address] [place] [address] ACUTE ILLNESS 05/24/2011 Patient Education: Patient Medication Summary Completed 05/24/2011 Visit Plan: codeine/guif cough syrup and cefdinir are phoned to [facility]. Discussed fluids and rest. Pt. will notify if symptoms persist or worsen. 04/15/2011 Appointment: Liza Ragsdale WPtel: [address] [place] [address] ACUTE ILLNESS 04/15/2011 Patient Education: Patient Medication Summary Completed 04/15/2011 Appointment: Sylvie Byrne WPtel: [address] [place], [place] [phone] LAB 02/01/2011 Patient Education: Patient Medication Summary Completed 02/01/2011 Visit Plan: Repeat clavicle x-ray in 6wk s Check bone density 01/13/2011 Appointment: Sylvie Byrne WPtel: [address] [place], [place] [phone] [place] FOLLOW UP 01/13/2011 Patient Education: Patient Medication Summary Completed 01/13/2011 Visit Plan: Check right clavicle and alda ulder x-ray Continue Vimovo and flexeril 12/23/2010 Appointment: Sylvie Byrne WPtel: [address] [place], [place] [phone] [place] FOLLOW UP 12/23/2010 Patient Education: Patient Medication Summary Completed 12/23/2010 Appointment: Sylvie Byrne WPtel: [address] [place], [place] [phone] ER Follow UP 12/15/2010 Patient Education: Patient [...] BP check. 12/02/2010 Appointment: Liza Ragsdale WPtel: [address] [place], [place] [id number] ACUTE ILLNESS 12/02/2010 Patient Education: Patient Medication Summary Completed 12/02/2010 Care Plan: ASSAY OF BLOOD/URIC ACID Pendi 12/02/2010 Care Plan: VCA AB G/M Pending 2010 Care Plan: EB GARY AG Pending 2010 Care Plan: EB NUCL AB Pending 2010 Appointment: Sylvie Byrne WPtel: [address] [place], [place] [phone] FOLLOW UP 11/18/2010 Visit Plan: benadryl 25 mg tab QHS. 12.5 mg tab every 8 hrs during the day. Pt. will notify if symptoms worsen. No facial edema present. 04/19/2010 Appointment: Liza Ragsdale WPtel: [address] [place], [place] [phone] FOLLOW UP 04/19/2010 Patient Education: Patient Medication [...] no improvement. 04/14/2010 Appointment: Liza Ragsdale WPtel: [address] [place], [place] [phone] ACUTE ILLNESS 04/14/2010 Patient Education: Patient Medication Summary Completed 04/14/2010 [facility]ment[facility] [phone] [id number] [facility] 03/12/2010 [phone] [id number] [facility] 09/14/2009 Patient Education: Patient Medication Summary Completed 09/14/2009 Appointment: Sylvie Byrne WPtel: [phone] [id number] ACUTE ILLNESS 09/01/2009 Patient Education: Patient Medication [...] 100 mg Ciprofl[facility] 500 [facility] Colonscopy - Candido . [...] seek re- eval if symptoms worsen or slubber frame changer the weekend. . Continue increased dose [...] [facility] Discussed fluids and rest. Pt. will notify [...]
--- OUTSIDE RECORDS SUMMARY | 2019-10-17 10:31 | XMS REPORT | CCD ---
Author Author Renan Byrne D.O. Organization [facility]LVIE [facility]RNE DO [facility] Address [address] [place] [address] Phone Care Team Providers Care Machine Biller Name Role Phone Sylvie Byrne D.O., PP Unavailable CCM Unavailable Summary Purpose Interface Exchange Insurance Providers Payer name Policy type / Coverage type Covered constitution party ID Effective Begin Date Effective End Date WPS MEDIC[place] Medicare Part B [id number] Unknown [facility] Medicare Part B [id number] Unknown Family History Family History data not found Social History Social History Element Codes Description Effective Dates Tobacco history SNOMED CT: 459335460 Nonsmoker 12/02/2010 Allergies, Adverse Reactions, Alerts Substance [...] Instructions hydroxyzine HCl 25 mg tablet RxNorm: 737729 1 Tablet(s) Oral Q8 H as needed 06/14/2019 06/14/2019 Inactive Cipro 500 mg tablet RxNorm: 196661 1 Tablet(s) Oral two times a day 06/14/2019 06/19/2019 Inactive Cipro 500 mg tablet RxNorm: 598306 1 Tablet(s) Oral two times a day 06/14/2019 06/13/2019 Inactive hydroxyzine HCl 25 mg tablet RxNorm: 192242 1 Tablet(s) Oral Q8 H as needed 06/14/2019 06/13/2019 Inactive prednisone 20 mg tablet RxNorm: 675124 1 Tablet(s) Oral two latonia es a day 05/31/2019 06/05/2019 Inactive Elimite 5 % topical cream RxNorm: 170759 Application To pical QPM from head to toe 05/17/2019 07/16/2019 Active Medrol (Nicholas) 4 mg tablets in a dose pack RxNorm: 671113 6 Tablet(s) Oral QD --then as directed 05/17/2019 05/23/2019 Inactive Osteo Bi-Flex 250 mg-200 mg tablet RxNorm: 611493 2 Tablet(s) O ral QD 01/23/2019 No Stop Date Active clindamycin HCl 300 mg capsule RxNorm: 220329 2 Capsule (s) Oral three times a day 01/23/2019 01/30/2019 Inactive Flagyl 500 mg tablet RxNorm: 826511 1 Tablet(s) PO BID 10/31/2018 Inactive lisinopril 20 mg tablet RxNorm: 964381 1 Tablet(s) PO QD for bl ood pressure 09/13/2018 12/11/2018 Inactive allopurinol 100 mg tablet RxNorm: 145245 1 Tablet(s) PO QD 09/14/19 19 12/11/2018 Inactive Flagyl 500 mg tablet RxNorm: 873437 1 Tablet(s) PO BID 01/18/2018 Inactive Cipro 250 mg tablet RxNorm: 783571 1 Tablet(s) PO BID 01/18/201801/08 Inactive lisinopril 20 mg tablet RxNorm: 297667 1 Tablet(s) PO QD for bl ood pressure 11/06/2017 02/03/2018 Inactive allopurinol 100 mg tablet RxNorm: 973203 1 Tablet(s) PO QD 11/07/19 18 02/03/2018 Inactive allopurinol 100 mg tablet RxNorm: 480982 1 Tablet(s) PO QD 04/11/19 18 10/07/2017 Inactive lisinopril 20 mg tablet RxNorm: 137962 1 Tablet(s) PO QD for bl ood pressure 04/07/2017 11/05/2017 Inactive prednisone 20 mg tablet RxNorm: 099887 2 Tablet(s) PO QD 03/15/2017 1 05/18/2016 Inactive tramadol 50 mg tablet RxNorm: 323411 1-2 Tablet(s) PO TID as needed 03/13/2017 08/06/2017 Inactive Medrol (Nicholas) 4 mg tablets in a dose pack RxNorm: 185356 Tablet(s) PO As Directed 02/28/2017 08/01/2017 Inactive allopurinol 100 mg tablet RxNorm: 377628 1 Tablet(s) PO QD 04/11/19 17 04/11/2017 Inactive lisinopril 20 mg tablet RxNorm: 189484 1 Tablet(s) PO QD for bl ood pressure 04/11/2016 04/07/2017 Inactive pravastatin 20 mg tablet RxNorm: 452865 1 Tablet(s) PO QD 01/13/2016 02/26/2017 Inactive pravastatin 20 mg tablet RxNorm: 697051 TAKE 1 TABLET DAILY 016 01/13/2016 Inactive pravastatin 40 mg tablet RxNorm: 364004 1 Tablet(s) PO QD 03/31/2015 03/31/2015 Inactive pravastatin 20 mg tablet RxNorm: 318251 1 Tablet(s) PO QD 03/31/2015 06/28/2015 Inactive doxycycline hyclate 100 mg capsule RxNorm: 3532764 1 Capsule(s) PO BID 03/31/2015 04/09/2015 Inactive mupirocin 2 % topical ointment RxNorm: 961896 Apply TOP BID to affected lesions 03/31/2015 08/01/2017 Inactive pravastatin 40 mg tablet RxNorm: 456867 1 Tablet(s) PO QD 01/08/2015 03/30/2015 Inactive lisinopril 20 mg tablet RxNorm: 361225 1 Tablet(s) PO QD for bl ood pressure 01/07/2015 12/31/2015 Inactive allopurinol 100 mg tablet RxNorm: 546033 1 Tablet(s) PO QD 01/08/20 15 04/10/2016 Inactive ciprofloxacin 500 mg tablet RxNorm: 257317 1 Tablet(s) PO BID 01/0701/13/2015 Inactive doxycycline hyclate 100 mg capsule RxNorm: 1804429 1 Capsule(s) PO BID 04/15/2014 04/24/2014 Inactive fluoxetine 10 mg capsule RxNorm: 858401 1 Capsule(s) PO QAM 014 04/14/2014 Inactive lisinopril 20 mg tablet RxNorm: 925986 1 Tablet(s) PO QD for bl ood pressure 05/02/2013 04/26/2014 Inactive Cipro 500 mg tablet RxNorm: 629214 1 Tablet(s) PO BID 01/02/201312/10 Inactive Cipro 500 mg tablet RxNorm: 518504 1 Tablet(s) PO BID 01/02/201304/2012 Inactive doxycycline hyclate 100 mg Cap RxNorm: 769372 1 Capsule(s) PO BID 0 10/10/2011 10/19/2011 Inactive Culturelle 10 billion cell Cap RxNorm: 345006 1 Capsule(s) PO BID 0 08/12/2011 09/10/2011 Inactive Colcrys 0.6 mg Tab RxNorm: 175085 1 Tablet(s) PO BID 08/04/201111/30 Inactive allopurinol 100 mg Tab RxNorm: 129192 1 Tablet(s) PO BID 07/13/2011 0 08/03/2011 Inactive clotrimazole-betamethasone 1 %-0.05 % Topical Cream RxNorm: 381161 1 Application TOP BID 06/10/2011 06/23/2011 Inactive clotrimazole-betamethasone 1 %-0.05 % Topical Cream RxNorm: 715398 1 Application TOP BID 05/24/2011 06/06/2011 Inactive Colcrys 0.6 mg Tab RxNorm: 434765 1 Tablet(s) PO BID 05/24/201108/02 Inactive cefdinir 300 mg Cap RxNorm: 108621 1 Capsule(s) PO BID 04/15/2011 Inactive Daypro 600 mg Tab RxNorm: 699645 1 Tablet(s) PO BID 12/15/20102010 Inactive for pain Medrol (Nicholas) 4 mg Tabs in a Dose Pack RxNorm: 300983 Tablet(s) PO 0 12/09/2010 12/15/2010 Inactive as directed Colcrys 0.6 mg Tab RxNorm: 339958 1 Tablet(s) PO BID 12/06/201001/04 Inactive lisinopril-hydrochlorothiazide 20 mg-12.5 mg Tab RxNorm: 197 886 1 Tablet(s) PO QAM 12/02/2010 01/30/2011 Inactive ranitidine 150 mg tablet RxNorm: 8720413 1 Tablet(s) PO BID Pt will phone before filing this script. 04/14/2010 05/13/2010 Inactive allopurinol 100 mg Tab RxNorm: 712108 1 Tablet(s) PO BID 09/16/2009 0 11/14/2009 Inactive lisinopril-hydrochlorothiazide 20 mg-12.5 mg Tab RxNorm: 197 886 1 Tablet(s) PO QAM 06/23/2009 08/31/2009 Inactive ibuprofen 200 mg tablet RxNorm: 260498 4 Tablet(s) PO QAM No Start Da te Active Zithromax Z-Nicholas 250 mg Tab RxNorm: 753579 Tablet(s) PO as direc tenzin No Start Date 01/12/2011 Inactive Ultram Oral RxNorm: Oral No Start Date 01/01/2013 Inactive allopurinol 100 mg tablet RxNorm: 821410 1 Tablet(s) PO QD No Start Date 01/06/2015 Inactive pravastatin 40 mg tablet RxNorm: 494775 1 Tablet(s) PO QD No Start Date 01/07/2015 Inactive Naprosyn 500 mg tablet RxNorm: 200091 1 Tablet(s) PO BID No Start D ate 05/01/2013 Inactive azithromycin 250 mg tablet RxNorm: 006227 2 Tablet(s) P O QD take 2 tablets (500 mg) by oral route once daily for 1 day then 1 tablet (250 mg) by oral route once daily for 4 days No Start Date 01/12/2011 Inactive allopurinol 300 mg Tab RxNorm: 796305 1 Tablet(s) PO QD No Start Da te 01/01/2013 Inactive Colcrys 0.6 mg tablet RxNorm: 655137 1 Tablet(s) PO BID No Start Da te 05/01/2013 Inactive Medrol (Nicholas) 4 mg tablets in a dose pack RxNorm: 699436 Tablet(s) PO As Directed No Start Date 02/27/2017 Inactive hydrocodone 5 mg-acetaminophen 325 mg tablet RxNorm: 772539 1 Tablet(s) PO Q4H as needed for pain No Start Date 12/09/2013 Inactive ranitidine 150 mg Tab RxNorm: 2335143 1 Tablet(s) PO BID No Start D ate 04/13/2010 Inactive Allopurinol 100 mg Tab RxNorm: 186943 1 Tablet(s) PO BID No Start D ate 09/15/2009 Inactive coenzyme Q10 200 mg capsule RxNorm: 586291 1 Capsule(s) PO QD No St art Date 03/30/2015 Inactive Mobic 7.5 mg tablet RxNorm: 915362 1 Tablet(s) PO QD No Start Date Inactive Osteo Bi-Flex (5-Loxin) 1,500 mg-400 unit-100 mg tablet RxNo rm: 1 Tablet(s) PO BID No Start Date 03/30/2015 Inactive hydrocodone-acetaminophen 7.5 mg-325 mg Tab RxNorm: 128801 1-2 Tablet(s) PO Q4-6H No Start Date 08/03/2011 Inactive as needed for pa in Neurontin 300 mg capsule RxNorm: 103078 1 Capsule(s) PO QD No Start Date 12/09/2013 Inactive Medrol (Nicholas) 4 mg Tabs in a Dose Pack RxNorm: 832077 Tablet(s) PO N o Start Date 12/08/2010 Inactive as directed Vitamin D2 1,000 unit capsule RxNorm: 513230 1 Capsule(s) PO QD No Start Date 03/30/2015 Inactive Flexeril 10 mg Tab RxNorm: 672700 1 Tablet(s) PO TID No Start Date Inactive for spasm Medication Administered No Medication Administered data Immunizations No Immunization data Results Observation Observation Code Item Item Code Result Date S ervice Location C DIFF MOL 9871305 C Diff Mol Int Negative 11/02/2018 Unk nown C Diff An [id number] C Diff Analyzer Indeterminate 9 Unknown GFR CALC 5488434 GFR Non Afr Amr >60 mL/min 11/01/2018 Un known GFR CALC 4746778 GFR Afr Amr >60 mL/min 11/01/[address] LDL 9638627 HDL CHOLESTEROL 46 mg/dL 11/01/[address] LDL 4271999 Cholesterol 198 mg/dL 11/01/[address] LDL Triglyceride 104 mg/dL 11/01/[address] LDL LDL Direct 158 mg/dL 11/01/[address] LDL 4557989 NON-HDL Chol 152 mg/dL 11/01/2018 Unkno wn THYROID STIMULATING HORMONE 07000 TSH 1.276 uIU/mL 11/01/2018 Unknown COMPREHENSIVE METABOLIC 70351 AST 22 U/L 2018 Unknown COMPREHENSIVE METABOLIC 20119 ALT 17 U/L 2018 Unknown COMPREHENSIVE METABOLIC 25050 BUN 16 mg/dL 2018 Unknown COMPREHENSIVE METABOLIC 11439 ALBUMIN 4.3 g/dL 2018 Unknown COMPREHENSIVE METABOLIC 89476 CHLORIDE 103 mmol/L 11/01 Unknown COMPREHENSIVE METABOLIC 96272 Bili Total 0.9 mg/dL 11/01 Unknown COMPREHENSIVE METABOLIC 21353 ALK PHOS 62 U/L 2018 Unknown COMPREHENSIVE METABOLIC 70284 SODIUM 138 mmol/L 11/01 Unknown COMPREHENSIVE METABOLIC 92192 CREATININE 0.87 mg/dL 10/09 Unknown COMPREHENSIVE METABOLIC 49790 CALCIUM 9.2 mg/dL 2018 Unknown COMPREHENSIVE METABOLIC 50984 POTASSIUM 4.1 mmol/L 11/01 Unknown COMPREHENSIVE METABOLIC 74792 Total Protein 7.2 g/dL Unknown COMPREHENSIVE METABOLIC 93810 Glucose 81 mg/dL 2018 Unknown COMPREHENSIVE METABOLIC 44229 Bicarbonate 18 mmol/L 10/09 Unknown COMPREHENSIVE METABOLIC 45420 AGAP 17 mmol/L 2018 Unknown COMPLETE BLOOD COUNT 3603754 WBC 8.8 10e9/L 11/02/19 19 Unknown COMPLETE BLOOD COUNT 1433395 RBC 4.54 10e12/L 2018 Unknown COMPLETE BLOOD COUNT 0243812 HEMOGLOBIN 14.4 g/dL 11/02/19 19 Unknown COMPLETE BLOOD COUNT 2890122 HEMATOCRIT 44.0 % 11/02/19 19 Unknown COMPLETE BLOOD COUNT 6062948 MCV 96.9 fL 9 Unknown COMPLETE BLOOD COUNT 2166529 MCH 31.7 pg 9 Unknown COMPLETE BLOOD COUNT 8353070 MCHC 32.7 g/dL 9 Unknown COMPLETE BLOOD COUNT 3867689 PLATELET COUNT 239 10e9/L Unknown COMPLETE BLOOD COUNT 5414789 Mean Plt Volume 10.5 fL Unknown COMPLETE BLOOD COUNT 1413770 NRBC Absolute 0.00 10e9/L Unknown COMPLETE BLOOD COUNT 6832082 Neut Auto 65.2 % 9 Unknown COMPLETE BLOOD COUNT [id number] NRBC/100 WBC 0.0 2018 Unknown COMPLETE BLOOD COUNT 3733503 Lymph Auto 23.1 % 11/02/19 19 Unknown COMPLETE BLOOD COUNT 1675146 Snyder Auto 9.5 % 9 Unknown COMPLETE BLOOD COUNT 3201494 RDW 12.2 % 9 Unknown COMPLETE BLOOD COUNT 3262618 Eos Auto 1.7 % 9 Unknown COMPLETE BLOOD COUNT 0182504 Baso Auto 0.3 % 9 Unknown COMPLETE BLOOD COUNT 7646371 Neutrophil Abs 5.73 10e9/L Unknown COMPLETE BLOOD COUNT 4342574 Imm Gran Auto 0.2 % 11/01 Unknown COMPLETE BLOOD COUNT [id number] Lymphocyte Abs 2.03 10e9/L Unknown COMPLETE BLOOD COUNT [id number] Monocyte Abs 0.84 10e9/L 10/09 Unknown COMPLETE BLOOD COUNT 1636002 Eosinophil Abs 0.15 10e9/L Unknown COMPLETE BLOOD COUNT 4502749 RDW-SD 43.4 fL 9 Unknown COMPLETE BLOOD COUNT [id number] Basophil Abs 0.03 10e9/L 10/09 Unknown COMPLETE BLOOD COUNT [id number] Imm Gran Abs 0.02 10e9/L 10/09 Unknown COMPREHENSIVE METABOLIC 91417 AST 17 U/L 2016 Unknown COMPREHENSIVE METABOLIC 60976 ALT 16 U/L 2016 Unknown COMPREHENSIVE METABOLIC 73690 BUN 15 mg/dL 2016 Unknown COMPREHENSIVE METABOLIC 51312 ALBUMIN 4.4 g/dL 2016 Unknown COMPREHENSIVE METABOLIC 33517 CHLORIDE 104 mmol/L 03/29 Unknown COMPREHENSIVE METABOLIC 57610 Bili Total 0.5 mg/dL 03/29 Unknown COMPREHENSIVE METABOLIC 24585 ALK PHOS 56 U/L 2016 Unknown COMPREHENSIVE METABOLIC 25748 SODIUM 139 mmol/L 03/29 Unknown COMPREHENSIVE METABOLIC 15645 CREATININE 0.88 mg/dL 03/11 Unknown COMPREHENSIVE METABOLIC 03632 CALCIUM 9.8 mg/dL 2016 Unknown COMPREHENSIVE METABOLIC 75358 POTASSIUM 4.2 mmol/L 03/29 Unknown COMPREHENSIVE METABOLIC 02430 Total Protein 6.8 g/dL Unknown COMPREHENSIVE METABOLIC 27645 Glucose 100 mg/dL 2016 Unknown COMPREHENSIVE METABOLIC 57017 Bicarbonate 30 mmol/L 03/11 Unknown COMPREHENSIVE METABOLIC 63598 AGAP 5 mmol/L 2016 Unknown THYROID STIMULATING HORMONE 12832 TSH 1.077 uIU/mL 03/29/2017 Unknown URIC ACID 74015 URIC ACID 5.2 mg/dL 03/29/2017 Unknown FREE T4 71821 T4 Free 1.04 ng/dL 03/29/2017 Unknown ERYTHROCYTE SEDIMENTATION RATE 19408 Sed Rate 21 mm/hr 03/29/2017 Unknown COMPLETE BLOOD COUNT 1132151 WBC 5.9 10e9/L 03/29/20 17 Unknown COMPLETE BLOOD COUNT [id number] RBC 4.52 10e12/L 2016 Unknown COMPLETE BLOOD COUNT 5769763 HEMOGLOBIN 14.6 g/dL 03/29/20 17 Unknown COMPLETE BLOOD COUNT 2832076 HEMATOCRIT 44.7 % 03/29/20 17 Unknown COMPLETE BLOOD COUNT 1840520 MCV 98.9 fL 7 Unknown COMPLETE BLOOD COUNT 8568527 MCH 32.3 pg 7 Unknown COMPLETE BLOOD COUNT 5653223 MCHC 32.7 g/dL 7 Unknown COMPLETE BLOOD COUNT 3585470 PLATELET COUNT 262 10e9/L Unknown COMPLETE BLOOD COUNT 4378304 Mean Plt Volume 10.1 fL Unknown COMPLETE BLOOD COUNT 8552704 Neut Auto 44.2 % 7 Unknown COMPLETE BLOOD COUNT 9586266 Lymph Auto 41.5 % 03/29/20 17 Unknown COMPLETE BLOOD COUNT 3443994 Snyder Auto 11.2 % 7 Unknown COMPLETE BLOOD COUNT 9857213 RDW 12.3 % 7 Unknown COMPLETE BLOOD COUNT 3238174 Eos Auto 2.6 % 7 Unknown COMPLETE BLOOD COUNT 9415877 Baso Auto 0.5 % 7 Unknown COMPLETE BLOOD COUNT 0117869 Neutrophil Abs 2.61 10e9/L Unknown COMPLETE BLOOD COUNT 5791303 Lymphocyte Abs 2.45 10e9/L Unknown COMPLETE BLOOD COUNT 6731437 Monocyte Abs 0.66 10e9/L 03/11 Unknown COMPLETE BLOOD COUNT 9258729 Eosinophil Abs 0.15 10e9/L Unknown COMPLETE BLOOD COUNT 6651991 RDW-SD 43.7 fL 201 7 Unknown COMPLETE BLOOD COUNT [id number] Basophil Abs 0.03 10e9/L 03/11 Unknown LIPID GROUP 51369 Cholesterol 248 mg/dL 03/29/2017 Unkno wn LIPID GROUP 53415 Triglyceride 87 mg/dL 03/29/2017 Unkn own [facility] GROUP 14994 HDL CHOLESTEROL 49 mg/dL 03/29/2017 U nknown L[facility] GROUP 54730 Chol/HDL Ratio 5.06 ratio 03/29/2017 U nknown LIP[facility] GROUP 48008 NON-HDL Chol 199 mg/dL 03/29/2017 Unkn own [facility] GROUP 40374 LDL Cholesterol 182 mg/dL 03/29/2017 U nknown GFR CALC 1692514 GFR Non Afr Amr >60 mL/min 03/29/2017 Un known GFR CALC 3788439 GFR Afr Amr >60 mL/min 03/29/2017 Unknow n HIV AG/AB 1096847 HIV Ag/Ab Non-Reactive 03/15/2017 Unkno wn VIRAL HEPATITIS PROFILE #2 81411 Hep A IgM Non-Reactive 03/15/2017 Unknown VIRAL HEPATITIS PROFILE #2 13312 Hep B Core IgM Non-Reac tive 03/15/2017 Unknown VIRAL HEPATITIS PROFILE #2 03547 Hepatitis C Ab Non-Reac tive 03/15/2017 Unknown VIRAL HEPATITIS PROFILE #2 88304 Hep Bs Ag Non-Reactive 03/15/2017 Unknown COMPREHENSIVE METABOLIC 07731 AST 23 U/L 2014 Unknown COMPREHENSIVE METABOLIC 92102 ALT 21 IU/L 2014 Unknown COMPREHENSIVE METABOLIC 32265 BUN 13 MG/DL 2014 Unknown COMPREHENSIVE METABOLIC 53617 ALBUMIN 4.3 GM/DL 2014 Unknown COMPREHENSIVE METABOLIC 26951 CHLORIDE 105 MMOL/L 01/07 Unknown COMPREHENSIVE METABOLIC 06919 BILI TOT 0.7 MG/DL 2014 Unknown COMPREHENSIVE METABOLIC 40428 ALK PHOS 51 U/L 2014 Unknown COMPREHENSIVE METABOLIC 65534 SODIUM 139 MMOL/L 01/07 Unknown COMPREHENSIVE METABOLIC 34972 CREATININE 0.85 MG/DL 12/11 Unknown COMPREHENSIVE METABOLIC 56893 CALCIUM 9.5 MG/DL 2014 Unknown COMPREHENSIVE METABOLIC 91647 POTASSIUM 4.4 MMOL/L 01/07 Unknown COMPREHENSIVE METABOLIC 28666 PROT TOT 6.7 GM/DL 2014 Unknown COMPREHENSIVE METABOLIC 15609 Glucose 100 MG/DL 2014 Unknown COMPREHENSIVE METABOLIC 37208 BICARB 27 MMOL/L 2014 Unknown COMPREHENSIVE METABOLIC 88676 ANION GAP 7 MEQ/L 2014 Unknown THYROID STIMULATING HORMONE 48910 TSH 0.900 uIU/ML 01/07/2015 Unknown COMPLETE BLOOD COUNT 3998887 WBC 4.9 10e9/L 01/08/20 15 Unknown COMPLETE BLOOD COUNT 1431236 RBC 4.71 10e12/L 2014 Unknown COMPLETE BLOOD COUNT 4452236 HGB 15.3 g/dL 5 Unknown COMPLETE BLOOD COUNT 3267214 HCT DET 46.1 % 5 Unknown COMPLETE BLOOD COUNT 1054120 MCV 97.9 fL 5 Unknown COMPLETE BLOOD COUNT 4472872 MCH 32.5 pg 5 Unknown COMPLETE BLOOD COUNT 8238873 MCHC 33.2 g/dL 5 Unknown COMPLETE BLOOD COUNT 4942597 PLT 227 10e9/L 01/08/20 15 Unknown COMPLETE BLOOD COUNT 6103011 MPV 10.9 fL 5 Unknown COMPLETE BLOOD COUNT 1493284 VERONIQUE % 53.0 % 5 Unknown COMPLETE BLOOD COUNT 4523773 LY % 35.8 % 5 Unknown COMPLETE BLOOD COUNT 1002853 MON % 8.6 % 5 Unknown COMPLETE BLOOD COUNT 4352869 EOS % 2.2 % 5 Unknown COMPLETE BLOOD COUNT 9603767 BASO % 0.4 % 5 Unknown COMPLETE BLOOD COUNT 7954055 RDW 12.9 % 5 Unknown COMPLETE BLOOD COUNT 8402871 ABS VERONIQUE 2.60 10e9/L 015 Unknown COMPLETE BLOOD COUNT 4342509 ABS LYMPH 1.75 10e9/L 015 Unknown COMPLETE BLOOD COUNT 5724818 ABS MONO 0.42 10e9/L 015 Unknown COMPLETE BLOOD COUNT 0952400 ABS EOS 0.11 10e9/L 015 Unknown COMPLETE BLOOD COUNT 0989108 ABS BASO 0.02 10e9/L 015 Unknown COMPLETE BLOOD COUNT 1693416 RDW-SD 45.7 fL 5 Unknown URIC ACID 36693 URIC ACID 6.7 MG/DL 01/07/2015 Unknown LIPID GROUP 47343 HDL TEST 52 MG/DL 01/07/2015 Unknown LIPID GROUP 16226 TRIG 158 MG/DL 01/07/2015 Unknown LIP[facility] GROUP 81784 TEST LDL 157 MG/DL 01/07/2015 Unknown LIPID GROUP 76595 CHOL 241 MG/DL 01/07/2015 Unknown LIPID GROUP 56835 RCHOL/HDL 4.63 RATIO 01/07/2015 Unknow n LIPID GROUP 72229 NON-HDL CH 189 MG/DL 01/07/2015 Unknow n GFR CALC 6455267 GFR AA >60 ML/MIN 01/07/2015 Unknown GFR CALC 1831014 GFR NON-AA >60 ML/MIN 01/07/2015 Unknown PSA EQUIMOLAR JONATAN 55962 PSA EQ 2.18 NG/ML 5 Unknown FREE T4 16410 FREE T4 1.04 NG/DL 01/07/2015 Unknown GFR CALC 4670720 GFR AA >60 ML/MIN 12/11/2013 Unknown GFR CALC 2034220 GFR NON-AA >60 ML/MIN 12/11/2013 Unknown LIPID GROUP 32051 HDL TEST 54 MG/DL 12/11/2013 Unknown LIPID GROUP 03879 TRIG 81 MG/DL 12/11/2013 Unknown LIPID GROUP 87001 TEST LDL 185 MG/DL 12/11/2013 Unknown LIPID GROUP 27215 CHOL 255 MG/DL 12/11/2013 Unknown LIPID GROUP 46188 RCHOL/HDL 4.72 RATIO 12/11/2013 Unknow n LIPID GROUP 53009 NON-HDL CH 201 MG/DL 12/11/2013 Unknow n URIC ACID 91151 URIC ACID 7.1 MG/DL 12/11/2013 Unknown PSA EQUIMOLAR JONATAN 66165 PSA EQ 3.80 NG/ML 4 Unknown COMPLETE BLOOD COUNT 6411773 WBC 5.9 10e9/L 12/12/19 14 Unknown COMPLETE BLOOD COUNT 9170759 RBC 4.40 10e12/L 2013 Unknown COMPLETE BLOOD COUNT 0417748 HGB 14.5 g/dL 4 Unknown COMPLETE BLOOD COUNT 4778321 HCT DET 43.6 % 4 Unknown COMPLETE BLOOD COUNT 6172967 MCV 99.1 fL 4 Unknown COMPLETE BLOOD COUNT 7628046 MCH 33.0 pg 4 Unknown COMPLETE BLOOD COUNT 4033623 MCHC 33.3 g/dL 4 Unknown COMPLETE BLOOD COUNT 8371462 PLT 289 10e9/L 12/12/19 14 Unknown COMPLETE BLOOD COUNT 2159727 MPV 10.2 fL 4 Unknown COMPLETE BLOOD COUNT 4366323 VERONIQUE % 47.9 % 4 Unknown COMPLETE BLOOD COUNT 3024113 LY % 40.6 % 4 Unknown COMPLETE BLOOD COUNT 5321023 MON % 8.8 % 4 Unknown COMPLETE BLOOD COUNT 4178550 EOS % 2.2 % 4 Unknown COMPLETE BLOOD COUNT 6835407 BASO % 0.5 % 4 Unknown COMPLETE BLOOD COUNT 3742075 RDW 12.9 % 4 Unknown COMPLETE BLOOD COUNT 0370660 ABS VERONIQUE 2.83 10e9/L 014 Unknown COMPLETE BLOOD COUNT 0567747 ABS LYMPH 2.40 10e9/L 014 Unknown COMPLETE BLOOD COUNT 5044027 ABS MONO 0.52 10e9/L 014 Unknown COMPLETE BLOOD COUNT 5207576 ABS EOS 0.13 10e9/L 014 Unknown COMPLETE BLOOD COUNT 5715336 ABS BASO 0.03 10e9/L 014 Unknown COMPLETE BLOOD COUNT 3019138 RDW-SD 45.7 fL 4 Unknown THYROID STIMULATING HORMONE 69505 TSH 1.013 uIU/ML 12/11/2013 Unknown COMPREHENSIVE METABOLIC 44278 AST 20 U/L 2013 Unknown COMPREHENSIVE METABOLIC 58948 ALT 16 IU/L 2013 Unknown COMPREHENSIVE METABOLIC 95987 BUN 17 MG/DL 2013 Unknown COMPREHENSIVE METABOLIC 28457 ALBUMIN 4.6 GM/DL 2013 Unknown COMPREHENSIVE METABOLIC 08018 CHLORIDE 107 MMOL/L 12/11 Unknown COMPREHENSIVE METABOLIC 76447 BILI TOT 0.7 MG/DL 2013 Unknown COMPREHENSIVE METABOLIC 80757 ALK PHOS 53 U/L 2013 Unknown COMPREHENSIVE METABOLIC 73963 SODIUM 140 MMOL/L 12/11 Unknown COMPREHENSIVE METABOLIC 36915 CREATININE 0.84 MG/DL 06/2013 Unknown COMPREHENSIVE METABOLIC 45970 CALCIUM 9.7 MG/DL 2013 Unknown COMPREHENSIVE METABOLIC 42540 POTASSIUM 4.6 MMOL/L 12/11 Unknown COMPREHENSIVE METABOLIC 71428 PROT TOT 6.9 GM/DL 2013 Unknown COMPREHENSIVE METABOLIC 74194 Glucose 97 MG/DL 2013 Unknown COMPREHENSIVE METABOLIC 21308 BICARB 25 MMOL/L 2013 Unknown COMPREHENSIVE METABOLIC 59351 ANION GAP 8 MEQ/L 2013 Unknown FREE T4 26477 FREE T4 1.11 NG/DL 12/11/2013 Unknown ASSAY OF CREATININE 28199 CREATININE 0.98 MG/DL 09/15/19 12 Unknown URIC ACID 20398 URIC ACID 4.9 MG/DL 09/15/2011 Unknown GFR CALC 3348652 GFR AA >60 ML/MIN 09/15/2011 Unknown GFR CALC 7739952 GFR NON-AA >60 ML/MIN 09/15/2011 Unknown THYROID STIMULATING HORMONE 61532 TSH 1.687 uIU/ML 08/01/2011 Unknown FREE T4 71086 FREE T4 0.96 NG/DL 08/01/2011 Unknown SJOGRENS 1237270 SJOGRN A <20 EU/ML 08/01/2011 Unknown SJOGRENS 8255230 SJOGRN B <20 EU/ML 08/01/2011 Unknown SJOGRENS 5251539 NONHIS INT SEE BELO 08/01/2011 Unknown THYRO PERX 5600754 THYRO PERX 175.34 UNITS 07/30/2011 Unkn own DNA AB 8798232 DNA AB 32 IU/ML 07/29/2011 Unknown TITER WENDI 5834207 TITR WENDI 1:160 07/29/2011 Unknown TITER WENDI 1208807 PATTERN NUCLEOLR 07/29/2011 Unknown ANTINUCLEAR ANTIBODY SCREEN 93516 WENDI SCR POSITIVE Unknown COMPREHENSIVE METABOLIC 35480 AST 23 U/L 2011 Unknown COMPREHENSIVE METABOLIC 26794 ALT 26 IU/L 2011 Unknown COMPREHENSIVE METABOLIC 79573 BUN 18 MG/DL 2011 Unknown COMPREHENSIVE METABOLIC 90308 ALBUMIN 4.6 GM/DL 2011 Unknown COMPREHENSIVE METABOLIC 43213 CHLORIDE 105 MMOL/L 07/27 Unknown COMPREHENSIVE METABOLIC 58283 BILI TOT 0.5 MG/DL 2011 Unknown COMPREHENSIVE METABOLIC 37711 ALK PHOS 63 U/L 2011 Unknown COMPREHENSIVE METABOLIC 24907 SODIUM 138 MMOL/L 07/27 Unknown COMPREHENSIVE METABOLIC 41742 CREATININE 0.92 MG/DL 07/09 Unknown COMPREHENSIVE METABOLIC 59647 CALCIUM 9.4 MG/DL 2011 Unknown COMPREHENSIVE METABOLIC 59623 POTASSIUM 3.9 MMOL/L 07/27 Unknown COMPREHENSIVE METABOLIC 87970 PROT TOT 6.7 GM/DL 2011 Unknown COMPREHENSIVE METABOLIC 07536 Glucose 101 MG/DL 2011 Unknown COMPREHENSIVE METABOLIC 74055 BICARB 24 MMOL/L 2011 Unknown COMPREHENSIVE METABOLIC 96720 ANION GAP 9 MEQ/L 2011 Unknown GFR CALC 2806213 GFR AA >60 ML/MIN 07/28/2011 Unknown GFR CALC 1141462 GFR NON-AA >60 ML/MIN 07/28/2011 Unknown ERYTHROCYTE SEDIMENTATION RATE 82487 ESR 2 MM/HR 07/28/2011 Unknown URIC ACID 26508 URIC ACID 5.8 MG/DL 07/28/2011 Unknown C-REACTIVE PROTEIN (CRP) QUANT 62421 CRP 0.2 MG/DL 07/28/2011 Unknown TITER WENDI 2825198 TITR WENDI 1:160 05/26/2011 Unknown TITER WENDI [id number] PATTERN NUCLEOLR 05/26/2011 Unknown RA FACTOR [id number] RA FACTOR <20.0 IU/ML 05/26/2011 Unknown ANTINUCLEAR ANTIBODY SCREEN 56718 WENDI SCR POSITIVE Unknown URIC ACID 42984 URIC ACID 8.7 MG/DL 05/25/2011 Unknown PSA EQUIMOLAR JONATAN 21806 PSA EQ 2.79 NG/ML 2 Unknown LIPID GROUP 06777 HDL TEST 47 MG/DL 05/25/2011 Unknown LIPID GROUP 69612 TRIG 198 MG/DL 05/25/2011 Unknown LIPID GROUP 73896 TEST LDL 180 MG/DL 05/25/2011 Unknown LIPID GROUP 07371 CHOL 267 MG/DL 05/25/2011 Unknown LIPID GROUP 24539 RCHOL/HDL 5.68 RATIO 05/25/2011 Unknow n COMPREHENSIVE METABOLIC 22838 AST 21 U/L 2011 Unknown COMPREHENSIVE METABOLIC 27274 ALT 21 IU/L 2011 Unknown COMPREHENSIVE METABOLIC 27523 BUN 16 MG/DL 2011 Unknown COMPREHENSIVE METABOLIC 22296 ALBUMIN 4.4 GM/DL 2011 Unknown COMPREHENSIVE METABOLIC 44384 CHLORIDE 105 MMOL/L 05/25 Unknown COMPREHENSIVE METABOLIC 26590 BILI TOT 0.7 MG/DL 2011 Unknown COMPREHENSIVE METABOLIC 80848 ALK PHOS 60 U/L 2011 Unknown COMPREHENSIVE METABOLIC 87959 SODIUM 139 MMOL/L 05/25 Unknown COMPREHENSIVE METABOLIC 55711 CREATININE 0.92 MG/DL 05/11 Unknown COMPREHENSIVE METABOLIC 79580 CALCIUM 9.4 MG/DL 2011 Unknown COMPREHENSIVE METABOLIC 53430 POTASSIUM 4.1 MMOL/L 05/25 Unknown COMPREHENSIVE METABOLIC 36708 PROT TOT 7.0 GM/DL 2011 Unknown COMPREHENSIVE METABOLIC 88793 Glucose 108 MG/DL 2011 Unknown COMPREHENSIVE METABOLIC 79647 BICARB 25 MMOL/L 2011 Unknown COMPREHENSIVE METABOLIC 16159 ANION GAP 9 MEQ/L 2011 Unknown GFR CALC 7071985 GFR AA >60 ML/MIN 05/25/2011 Unknown GFR CALC [id number] GFR NON-AA >60 ML/MIN 05/25/2011 Unknown COMPLETE BLOOD COUNT 26363 WBC 5.6 10e9/L 05/25/19 12 Unknown COMPLETE BLOOD COUNT 25372 RBC 5.01 10e12/L 2011 Unknown COMPLETE BLOOD COUNT 59775 HGB 15.8 g/dL 2 Unknown COMPLETE BLOOD COUNT 86123 HCT DET 46.1 % 2 Unknown COMPLETE BLOOD COUNT 61916 MCV 92.0 fL 2 Unknown COMPLETE BLOOD COUNT 08510 MCH 31.5 pg 2 Unknown COMPLETE BLOOD COUNT 78756 MCHC 34.3 g/dL 2 Unknown COMPLETE BLOOD COUNT 07984 PLT 246 10e9/L 05/25/19 12 Unknown COMPLETE BLOOD COUNT 72816 MPV 10.3 fL 2 Unknown COMPLETE BLOOD COUNT 09597 VERONIQUE % 47.1 % 2 Unknown COMPLETE BLOOD COUNT 53162 LY % 41.0 % 2 Unknown COMPLETE BLOOD COUNT 98610 MON % 8.9 % 2 Unknown COMPLETE BLOOD COUNT 03557 EOS % 2.5 % 2 Unknown COMPLETE BLOOD COUNT 74113 BASO % 0.5 % 2 Unknown COMPLETE BLOOD COUNT 15032 RDW 12.7 % 2 Unknown COMPLETE BLOOD COUNT 25557 ABS VERONIQUE 2.64 10e9/L 012 Unknown COMPLETE BLOOD COUNT 32295 ABS LYMPH 2.30 10e9/L 012 Unknown COMPLETE BLOOD COUNT 78849 ABS MONO 0.50 10e9/L 012 Unknown COMPLETE BLOOD COUNT 83924 ABS EOS 0.14 10e9/L 012 Unknown COMPLETE BLOOD COUNT 66089 ABS BASO 0.03 10e9/L 012 Unknown COMPLETE BLOOD COUNT 97388 RDW-SD 41.3 fL 2 Unknown COMPREHENSIVE METABOLIC 82843 AST 18 U/L 2010 Unknown COMPREHENSIVE METABOLIC 75804 ALT 14 IU/L 2010 Unknown COMPREHENSIVE METABOLIC 14582 BUN 12 MG/DL 2010 Unknown COMPREHENSIVE METABOLIC 87403 ALBUMIN 4.6 GM/DL 2010 Unknown COMPREHENSIVE METABOLIC 21701 CHLORIDE 102 MMOL/L 02/01 Unknown COMPREHENSIVE METABOLIC 60649 BILI TOT 0.6 MG/DL 2010 Unknown COMPREHENSIVE METABOLIC 99769 ALK PHOS 66 U/L 2010 Unknown COMPREHENSIVE METABOLIC 35873 SODIUM 139 MMOL/L 02/01 Unknown COMPREHENSIVE METABOLIC 82495 CREATININE 0.92 MG/DL 01/09 Unknown COMPREHENSIVE METABOLIC 15576 CALCIUM 9.8 MG/DL 2010 Unknown COMPREHENSIVE METABOLIC 98351 POTASSIUM 4.1 MMOL/L 02/01 Unknown COMPREHENSIVE METABOLIC 81885 PROT TOT 7.0 GM/DL 2010 Unknown COMPREHENSIVE METABOLIC 75433 Glucose 101 MG/DL 2010 Unknown COMPREHENSIVE METABOLIC 18690 BICARB 25 MMOL/L 2010 Unknown COMPREHENSIVE METABOLIC 34682 ANION GAP 12 MEQ/L 2010 Unknown GFR CALC [id number] GFR AA >60 ML/MIN 02/01/2011 Unknown GFR CALC [id number] GFR NON-AA >60 ML/MIN 02/01/2011 Unknown LIPID GROUP 83148 HDL TEST 44 MG/DL 02/01/2011 Unknown LIPID GROUP 03180 TRIG 157 MG/DL 02/01/2011 Unknown LIPID GROUP 18607 TEST LDL 193 MG/DL 02/01/2011 Unknown LIPID GROUP 52031 CHOL 268 MG/DL 02/01/2011 Unknown LIPID GROUP 43428 RCHOL/HDL 6.09 RATIO 02/01/2011 Unknow n FREE T4 77726 FREE T4 1.04 NG/DL 02/01/2011 Unknown COMPLETE BLOOD COUNT 68965 WBC 6.4 10e9/L 02/02/20 11 Unknown COMPLETE BLOOD COUNT 75817 RBC 4.56 10e12/L 2010 Unknown COMPLETE BLOOD COUNT 79049 HGB 14.4 g/dL 1 Unknown COMPLETE BLOOD COUNT 26790 HCT DET 43.0 % 1 Unknown COMPLETE BLOOD COUNT 13865 MCV 94.3 fL 1 Unknown COMPLETE BLOOD COUNT 33880 MCH 31.6 pg 1 Unknown COMPLETE BLOOD COUNT 39427 MCHC 33.5 g/dL 1 Unknown COMPLETE BLOOD COUNT 48140 PLT 300 10e9/L 02/02/20 11 Unknown COMPLETE BLOOD COUNT 16262 MPV 9.9 fL 1 Unknown COMPLETE BLOOD COUNT 50723 VERONIQUE % 38.5 % 1 Unknown COMPLETE BLOOD COUNT 61634 LY % 49.1 % 1 Unknown COMPLETE BLOOD COUNT 70493 MON % 10.1 % 1 Unknown COMPLETE BLOOD COUNT 35819 EOS % 1.7 % 1 Unknown COMPLETE BLOOD COUNT 50565 BASO % 0.6 % 1 Unknown COMPLETE BLOOD COUNT 66871 RDW 15.1 % 1 Unknown COMPLETE BLOOD COUNT 95409 ABS VERONIQUE 2.46 10e9/L 011 Unknown COMPLETE BLOOD COUNT 46051 ABS LYMPH 3.14 10e9/L 011 Unknown COMPLETE BLOOD COUNT 99175 ABS MONO 0.65 10e9/L 011 Unknown COMPLETE BLOOD COUNT 99394 ABS EOS 0.11 10e9/L 011 Unknown COMPLETE BLOOD COUNT 21741 ABS BASO 0.04 10e9/L 011 Unknown COMPLETE BLOOD COUNT 40814 RDW-SD 50.6 fL 1 Unknown THYROID STIMULATING HORMONE 20531 TSH 1.128 uIU/ML 02/01/2011 Unknown PSA EQUIMOLAR JONATAN 79797 PSA EQ 3.83 NG/ML 1 Unknown VCA AB G/M [id number] EBV G VCA 3.34 12/03/2010 Unknown VCA AB G/M 5004822 EBV M VCA 0.12 12/03/2010 Unknown EB GARY AG [id number] EB GARY AG 0.47 12/03/2010 Unknown EB NUCL AB [id number] EB NUCL AB 3.72 12/03/2010 Unknown COMPLETE BLOOD COUNT 25916 WBC 8.0 10e9/L 12/03/19 11 Unknown COMPLETE BLOOD COUNT 01612 RBC 4.93 10e12/L 2010 Unknown COMPLETE BLOOD COUNT 31826 HGB 15.7 g/dL 1 Unknown COMPLETE BLOOD COUNT 61549 HCT DET 45.4 % 1 Unknown COMPLETE BLOOD COUNT 70710 MCV 92.1 fL 1 Unknown COMPLETE BLOOD COUNT 53351 MCH 31.8 pg 1 Unknown COMPLETE BLOOD COUNT 10506 MCHC 34.6 g/dL 1 Unknown COMPLETE BLOOD COUNT 53387 PLT 248 10e9/L 12/03/19 11 Unknown COMPLETE BLOOD COUNT 91735 MPV 10.4 fL 1 Unknown COMPLETE BLOOD COUNT 86523 VERONIQUE % 74.0 % 1 Unknown COMPLETE BLOOD COUNT 42706 LY % 19.6 % 1 Unknown COMPLETE BLOOD COUNT 84458 MON % 5.2 % 1 Unknown COMPLETE BLOOD COUNT 59398 EOS % 1.1 % 1 Unknown COMPLETE BLOOD COUNT 94382 BASO % 0.1 % 1 Unknown COMPLETE BLOOD COUNT 72581 RDW 12.5 % 1 Unknown COMPLETE BLOOD COUNT 44030 ABS VERONIQUE 5.92 10e9/L 011 Unknown COMPLETE BLOOD COUNT 61453 ABS LYMPH 1.57 10e9/L 011 Unknown COMPLETE BLOOD COUNT 88336 ABS MONO 0.42 10e9/L 011 Unknown COMPLETE BLOOD COUNT 12697 ABS EOS 0.09 10e9/L 011 Unknown COMPLETE BLOOD COUNT 48821 ABS BASO 0.01 10e9/L 011 Unknown COMPLETE BLOOD COUNT 39187 RDW-SD 41.1 fL 1 Unknown URIC ACID 56315 URIC ACID 9.3 MG/DL 12/02/2010 Unknown Procedures Procedure Codes Date URINALYSIS NONAUTO W/O SCOPE CPT-4: 12270 06/20/2019 URINE CULTURE/ COLONY COUNT CPT-4: 11123 06/20/2019 DEXAMETHASONE SODIUM PHOS CPT-4: J1100 05/31/2019 THER/PROPH/DIAG INJ SC/IM CPT-4: 94522 05/31/2019 THER/PROPH/DIAG INJ SC/IM CPT-4: 32143 05/17/2019 TRIAMCINOLONE ACET INJ NOS CPT-4: J3301 05/17/2019 DRAINAGE OF SKIN ABSCESS CPT-4: 01300 01/23/2019 AEROBIC WOUND CULTURE & STN CPT-4: 36832 01/23/2019 ROUTINE VENIPUNCTURE CPT-4: 33570 03/29/2017 ASSAY THYROID STIM HORMONE CPT-4: 60298 03/29/2017 ASSAY OF FREE THYROXINE CPT-4: 10079 03/29/2017 COMPREHEN METABOLIC PANEL CPT-4: 81966 03/29/2017 COMPLETE CBC W/AUTO DIFF WBC CPT-4: 44160 03/29/2017 LIPID PANEL CPT-4: 82587 03/29/2017 ASSAY OF BLOOD/URIC ACID CPT-4: 30094 03/29/2017 RBC SED RATE AUTOMATED CPT-4: 70200 03/29/2017 ROUTINE VENIPUNCTURE CPT-4: 77076 03/15/2017 ACUTE HEPATITIS PANEL CPT-4: 88531 03/15/2017 HIV-1/HIV-2 1 RESULT ANTBDY CPT-4: 98072 03/15/2017 EXC TR-EXT B9+SHASHA 0.5 CM< CPT-4: 92920 03/15/2017 EXC TR-EXT B9+SHASHA 1.1-2 CM CPT-4: 18339 03/15/2017 URINALYSIS NONAUTO W/O SCOPE CPT-4: 14128 01/07/2015 URINE CULTURE/ COLONY COUNT CPT-4: 38017 01/07/2015 ROUTINE VENIPUNCTURE CPT-4: 41654 01/07/2015 ASSAY OF FREE THYROXINE CPT-4: 78798 01/07/2015 ASSAY THYROID STIM HORMONE CPT-4: 17757 01/07/2015 COMPREHEN METABOLIC PANEL CPT-4: 52969 01/07/2015 COMPLETE CBC W/AUTO DIFF WBC CPT-4: 44516 01/07/2015 LIPID PANEL CPT-4: 48875 01/07/2015 ASSAY OF PSA TOTAL CPT-4: 73596 01/07/2015 ASSAY OF BLOOD/URIC ACID CPT-4: 04635 01/07/2015 ROUTINE VENIPUNCTURE CPT-4: 76052 12/11/2013 ASSAY OF FREE THYROXINE CPT-4: 45899 12/11/2013 ASSAY THYROID STIM HORMONE CPT-4: 74891 12/11/2013 COMPREHEN METABOLIC PANEL CPT-4: 65328 12/11/2013 COMPLETE CBC W/AUTO DIFF WBC CPT-4: 96580 12/11/2013 LIPID PANEL CPT-4: 47401 12/11/2013 ASSAY OF BLOOD/URIC ACID CPT-4: 11590 12/11/2013 ASSAY OF PSA TOTAL CPT-4: 85539 12/11/2013 URINE CULTURE/ COLONY COUNT CPT-4: 63428 01/02/2013 AEROBIC WOUND CULTURE & STN CPT-4: 01218 10/10/2011 DRAINAGE OF SKIN ABSCESS CPT-4: 47484 10/10/2011 ASSAY OF CREATININE CPT-4: 80630 09/15/2011 ASSAY OF BLOOD/URIC ACID CPT-4: 34777 09/15/2011 ROUTINE VENIPUNCTURE CPT-4: 66947 07/28/2011 ANTINUCLEAR ANTIBODIES CPT-4: 18342 07/28/2011 RBC SED RATE AUTOMATED CPT-4: 90329 07/28/2011 ASSAY OF BLOOD/URIC ACID CPT-4: 46900 07/28/2011 COMPREHEN METABOLIC PANEL CPT-4: 60023 07/28/2011 C-REACTIVE PROTEIN CPT-4: 88478 07/28/2011 THYRO PERX CPT-4: 5608138 07/28/2011 DNA AB CPT-4: 3616476 07/28/2011 SJOGRENS CPT-4: 8631332 07/28/2011 ASSAY OF FREE THYROXINE CPT-4: 00226 07/28/2011 ASSAY THYROID STIM HORMONE CPT-4: 57593 07/28/2011 ROUTINE VENIPUNCTURE CPT-4: 66637 05/25/2011 COMPREHEN METABOLIC PANEL CPT-4: 50245 05/25/2011 COMPLETE CBC W/AUTO DIFF WBC CPT-4: 72440 05/25/2011 ANTINUCLEAR ANTIBODIES CPT-4: 19440 05/25/2011 RHEUMATOID FACTOR QUANT CPT-4: 17094 05/25/2011 ASSAY OF PSA TOTAL CPT-4: 63897 05/25/2011 ASSAY OF BLOOD/URIC ACID CPT-4: 11621 05/25/2011 LIPID PANEL CPT-4: 51314 05/25/2011 ROUTINE VENIPUNCTURE CPT-4: 40027 02/01/2011 ASSAY OF FREE THYROXINE CPT-4: 01425 02/01/2011 ASSAY THYROID STIM HORMONE CPT-4: 13154 02/01/2011 COMPREHEN METABOLIC PANEL CPT-4: 21998 02/01/2011 COMPLETE CBC W/AUTO DIFF WBC CPT-4: 43669 02/01/2011 LIPID PANEL CPT-4: 32576 02/01/2011 ASSAY OF PSA TOTAL CPT-4: 51129 02/01/2011 ROUTINE VENIPUNCTURE CPT-4: 94192 12/02/2010 ASSAY OF BLOOD/URIC ACID CPT-4: 61069 12/02/2010 EB VIRUS VCA G/M + EBNA + EA CPT-4: 99002|22278 x 2|18061 COMPLETE CBC W/AUTO DIFF WBC CPT-4: 87181 12/02/2010 COMPREHEN METABOLIC PANEL CPT-4: 15992 09/14/2009 ASSAY OF BLOOD/URIC ACID CPT-4: 62080 09/14/2009 ROUTINE VENIPUNCTURE CPT-4: 02323 09/14/2009 URINALYSIS NONAUTO W/O SCOPE CPT-4: 01147 09/01/2009 Vital Signs Date Vital 06/20/2019 Respiratory [...] 1: 118/64 Code: 8480-6 BMI: 29.7 Code: 23629-9 Heart Rate 1: 100 bpm Height: 5'6" Respiratory Rate: 22 bpm SpO2: 95% Tempera ture: 36.7 (C) / 98.0 (F) Weight: 187 lbs 02/27/2017 Blood Pressure 1: 132/76 Code: 8480-6 BMI: 30.8 Code: 05860-8 Heart Rate 1: 96 bpm Height: 5'6" Respiratory Rate: 22 bpm SpO2: 98% Tempera ture: 36.6 (C) / 97.8 (F) Weight: 194 lbs 03/31/2015 Blood Pressure 1: 128/90 Code: 8480-6 Heart Rate 1: 88 bpm Respiratory Rate: 20 bpm Temperature: 36.9 (C) / 98.4 (F) Weight: 192 lbs 01/07/2015 Blood Pressure 1: 132/80 Code: 8480-6 BMI: 30.2 Code: 32461-7 Heart Rate 1: 78 bpm Height: 5'6" Respiratory Rate: 22 bpm Temperature: 36 .7 (C) / 98.1 (F) Weight: 190 lbs 04/15/2014 Blood Pressure 1: 136/88 Code: 8480-6 BMI: 31.0 Code: 90197-5 Heart Rate 1: 84 bpm Height: 5'6" Respiratory Rate: 20 bpm Temperature: 36 .1 (C) / 97.0 (F) Weight: 192 lbs 12/10/2013 Blood Pressure 1: 142/90 Code: 8480-6 BMI: 29.1 Code: 33815-2 Heart Rate 1: 72 bpm Height: 5'7" Respiratory Rate: 20 bpm Temperature: 36 .6 (C) / 97.8 (F) Weight: 186 lbs 05/02/2013 Blood Pressure 1: 146/96 Code: 8480-6 BMI: 30.5 Code: 61276-6 Heart Rate 1: 88 bpm Height: 5'7" Respiratory Rate: 20 bpm Temperature: 37 .0 (C) / 98.6 (F) Weight: 195 lbs 01/02/2013 Blood Pressure 1: 132/84 Code: 8480-6 BMI: 30.2 Code: 87987-6 Heart Rate 1: 80 bpm Height: 5'7" Respiratory Rate: 20 bpm Temperature: 36 .9 (C) / 98.4 (F) Weight: 193 lbs 10/10/2011 Blood Pressure 1: 122/68 Code: 8480-6 BMI: 35.7 Code: 59468-1 Heart Rate 1: 84 bpm Height: 5'2" Temperature: 36.9 (C) / 98.5 (F) Weight: 195 lbs 08/12/2011 Blood Pressure 1: 110/80 Code: 8480-6 BMI: 36.9 Code: 77765-4 Heart Rate 1: 80 bpm Height: 5'2" Temperature: 36.4 (C) / 97.6 (F) Weight: 202 lbs 08/04/2011 Blood Pressure 1: 126/80 Code: 8480-6 BMI: 37.9 Code: 00251-4 Heart Rate 1: 76 bpm Height: 5'2" Respiratory Rate: 20 bpm Temperature: 37 .0 (C) / 98.6 (F) Weight: 207 lbs 05/24/2011 Blood Pressure 1: 122/82 Code: 8480-6 BMI: 37.7 Code: 77830-4 Heart Rate 1: 68 bpm Height: 5'2" Temperature: 36.7 (C) / 98.1 (F) Weight: 206 lbs 04/15/2011 Blood Pressure 1: 128/82 Code: 8480-6 BMI: 37.1 Code: 44085-0 Heart Rate 1: 68 bpm Height: 5'2" [...] 1: 106/62 Code: 8480-6 BMI: 36.8 Code: 97817-3 Heart Rate 1: 90 bpm Height: 5'2" SpO2: 94% Temperature: 36.4 (C) / 97.6 (F) Weight: 201 lbs 12/02/2010 Blood Pressure 1: 142/90 Code: 8480-6 BMI: 36.8 Code: 06983-3 Heart Rate 1: 96 bpm Height: 5'2" [...] success Encounters Encounter Performer Location Codes Date ([id number]) OFFICE/OUTPATIENT VISIT EST Diagnosis: Enlarged testicle[ICD10: N50.89] Diagnosis: Polyuria[ICD10: R35.8] Azra Kirkhenrik SAINZ [employer] KRAFTWERKJEAN CLAUDE [employer] [facility] CPT-4: 29491 06/20/2019 ([id number]) OFFICE/OUTPATIENT VISIT EST Diagnosis: Acute contact dermatitis[ICD10: L25.9] Azra Kirkhenrik BROWNLEE [employer] CPT-4: 45431 05/31/2019 ([id number]) OFFICE/OUTPATIENT VISIT EST Diagnosis: Acute contact dermatitis[ICD10: L25.9] Diagnosis: Acute sinusitis[ICD10: J01.90] Sylvie SAINZ [employer] CPT-4: 79618 05/17/2019 ([id number]) OFFICE/OUTPATIENT VISIT EST Diagnosis: Acute gastritis without bleeding[ICD10: K29.00] Diagnosis: Essential (primary) hypertension[ICD10: I10] Diagnosis: Hyperlipidemia, unspecified[ICD10: E78.5] Azra COOK [employer] CPT-4: 38653 10/31/2018 ([id number]) OFFICE/OUTPATIENT VISIT EST Diagnosis: Acute gastritis without bleeding[ICD10: K29.00] Azra SAINZ [employer] CPT-4: 34747 01/18/2018 ([id number]) OFFICE/OUTPATIENT VISIT EST Diagnosis: Hyperlipidemia, unspecified[ICD10: E78.5] Diagnosis: Essential (primary) hypertension[ICD10: I10] Diagnosis: Weakness[ICD10: R53.1] Diagnosis: Sebaceous cyst[ICD10: L72.3] Diagnosis: Idiopathic gout, unspecified site[ICD10: M10.00] Sylvie BYRNE [employer] [facility] CPT-4: 52877 03/29/2017 OFFICE/OUTPATIENT VISIT EST Diagnosis: Pain in right knee[ICD10: M25.561] Azra BYRNE [employer] [facility] CPT-4: 04161 03/13/2017 OFFICE/OUTPATIENT VISIT EST Diagnosis: Pain in right leg[ICD10: M79.604] Diagnosis: Sebaceous cyst[ICD10: L72.3] Azra BYRNE [employer] [facility] CPT-4: 83977 02/27/2017 OFFICE/OUTPATIENT VISIT EST Diagnosis: Local infection of the skin and subcutaneous tissue, unspecified[ICD10: L08.9] Diagnosis: Essential (primary) hypertension[ICD10: I10] Diagnosis: Hyperlipidemia, unspecified[ICD10: E78.5] Dagmar ZhaoHeidijazmine BYRNE [employer] [facility] CPT-4: 29397 03/31/2015 ([id number]) PREV VISIT EST AGE 40-64 Diagnosis: History of chest pain[ICD9: V13.89] Diagnosis: Right flank pain[ICD9: 789.09] Diagnosis: ROUTINE MEDICAL EXAM[ICD9: V70.0] Diagnosis: HYPERTENSION[ICD9: 401.9] Diagnosis: HYPERLIPIDEMIA NEC/NOS[ICD9: 272.4] Diagnosis: Colon polyps[ICD9: 211.3] Diagnosis: HEMATURIA NOS[ICD9: 599.70] Dagmar ZhaoHeidibrendajamari SYLVIE BYRNE [employer] [facility] CPT-4: 14088 01/07/2015 OFFICE/OUTPATIENT VISIT EST Diagnosis: COUGH[ICD9: 786.2] Diagnosis: Rectal itching[ICD9: 698.0] Dagmar ZhaoHeidijazmine BYRNE [employer] [facility] CPT-4: 27550 04/15/2014 ([id number]) OFFICE/OUTPATIENT VISIT EST Diagnosis: ROUTINE MEDICAL EXAM[ICD9: V70.0] Diagnosis: GOUT[ICD9: 274.9] Diagnosis: HYPERLIPIDEMIA NEC/NOS[ICD9: 272.4] Diagnosis: HYPERTENSION[ICD9: 401.9] Sylvie SILVERIO [facility] CPT-4: 72100 12/11/2013 ([id number]) OFFICE/OUTPATIENT VISIT EST Diagnosis: Shingles[ICD9: 053.9] Sylvie BYRNE [facility] CPT-4: 80025 12/10/2013 ([id number]) OFFICE/OUTPATIENT VISIT EST Diagnosis: HYPERTENSION[ICD9: 401.9] Diagnosis: Colon polyps[ICD9: 211.3] Diagnosis: Stress reaction[ICD9: 308.9] Sylvie BYRNE [facility] CPT-4: 16207 05/02/2013 ([id number]) OFFICE/OUTPATIENT VISIT EST Diagnosis: URINARY TRACT INFECTION[ICD9: 599.0] Sylvie ChapaFrancisco AGAPITO [facility] CPT-4: 82484 01/02/2013 OFFICE/OUTPATIENT VISIT EST Diagnosis: CELLULITIS OF TRUNK[ICD9: 682.2] Diagnosis: SPRAIN SHOULDER/ARM[ICD9: 840.9] Liza Ragsdale SYLVIE Alan BYRNE [facility] CPT-4: 10135 10/10/2011 ([id number]) OFFICE/OUTPATIENT VISIT EST Diagnosis: GOUT[ICD9: 274.9] Sylvie WILSONLINE SammiFrancisco AGAPITO [facility] CPT-4: 05972 09/15/2011 OFFICE/OUTPATIENT VISIT EST Diagnosis: DIARRHEA[ICD9: 787.91] Sylvie WILSONLINE SammiFrancisco HUONG Cagle [facility] CPT-4: 73946 08/12/2011 ([id number]) OFFICE/OUTPATIENT VISIT EST Diagnosis: GOUT[ICD9: 274.9] Diagnosis: Positive WENDI (antinuclear antibody)[ICD9: 795.79] Sylvie ChapaFrancisco AGAPITO [facility] CPT-4: 92359 08/04/2011 OFFICE/OUTPATIENT VISIT EST Diagnosis: Rash[ICD9: 782.1] Diagnosis: Joint pain[ICD9: 719.40] Diagnosis: Hyperlipidemia[ICD9: 272.4] Sylvie SAINZ S. Shad RENDER DO [facility] CPT-4: 46033 05/24/2011 OFFICE/OUTPATIENT VISIT EST Diagnosis: PHARYNGITIS, ACUTE[ICD9: 462] Diagnosis: COUGH[ICD9: 786.2] Diagnosis: SINUSITIS, ACUTE[ICD9: 461.9] Sylvie BYRNE DO [facility] CPT-4: 21171 04/15/2011 OFFICE/OUTPATIENT VISIT EST Diagnosis: Clavicle fracture[ICD9: 810.00] Sylvie BYRNE DO [facility] CPT-4: 49548 01/13/2011 OFFICE/OUTPATIENT VISIT EST Diagnosis: Clavicle pain[ICD9: 719.41] Sylvie Chapa. Shad RENDER DO [facility] CPT-4: 31057 12/23/2010 OFFICE/OUTPATIENT VISIT EST Diagnosis: Arm pain[ICD9: 729.5] Diagnosis: SPASM OF MUSCLE[ICD9: 728.85] Diagnosis: Neck pain[ICD9: 723.1] Sylvie WILSONLINE Alan Cagle [facility] CPT-4: 87569 12/15/2010 OFFICE/OUTPATIENT VISIT EST Diagnosis: HYPERTENSION[ICD9: 401.9] Diagnosis: PHARYNGITIS, ACUTE[ICD9: 462] Diagnosis: MALAISE AND FATIGUE[ICD9: 780.79] Diagnosis: GOUT[ICD9: 274.9] Sylvie Yvanhenrikchris WILSONSYLVIE SammiFrancisco AGAPITO MOLINA [facility] CPT-4: 84839 12/02/2010 ([id number]) OFFICE/OUTPATIENT VISIT, EST Sylvie Yvanhenrikchris JUVENTINO GUICHIQUITA Alan BYRNE DO [facility] CPT-4: 34188 04/19/2010 ([id number]) OFFICE/OUTPATIENT VISIT, EST Sylvie Yvanhenrikchris JUVENTINO GUICHIQUITA SammiFrancisco AGAPITO MOLINA [facility] CPT-4: 34144 04/14/2010 ([id number]) OFFICE/OUTPATIENT VISIT, EST Sylvie Yvanjean claude JAUREGUI GUICHIQUITA SammiFrancisco AGAPITO MOLINA [facility] CPT-4: 02088 09/01/2009 Plan of Care Planned Activity Notes [...] Care Plan: US EXAM SCROTUM LOINC : 59326 -7 Pending 06/20/2019 Visit Diagnosis Plan: Acute contact dermatitis Discuss ion: skin scrape obtained due to recurrent issue. 4 mg dexamethasone given in office. prednisone prescribed to take as directed. instructed to change laundry detergent back to original and wash a week's worth of clothes in other detergent to see if problem improves. ICD-9 : 692.9 ICD-10 : L25.9 05/31/2019 Appointment: Azra Bradley [address] [place], [place] [id number] ACUTE [facility]NESS 05/31/2019 Patient Education: prednisone- [employer] Coupon [phone] https://www.My True Fit/samplemd/resources/getResource/61/[email or web address] Completed 05/31/2019 Visit Diagnosis Plan: Acute contact dermatitis Discuss ion: Kenalog 40mg IM now Cover with [employer] Call in 1week on how doing Medrol Dose Pack ICD-9 : 692.9 ICD-10 : L25.9 05/17/2019 Appointment: Sylvie Byrne WPtel: [phone] [facility] ACUTE ILLNESS 05/17/2019 Patient Education: Medrol (Nicholas)- [employer] Coupon [phone] https://www.My True Fit/Smart Adventure/resources/getResource/61/[email or web address] Completed 05/17/2019 Visit Diagnosis Plan: Abscess of chest wall Discussion : patient has large amount of induration still noted despite recent drainage and antibiotics. dr. najera's office was called and they were able to see patient today. patient was sent over there for possible surgery. ICD-9 : 682.2 ICD-10 : L02.213 01/25/2019 Appointment: Azra Bradley [address] [place], [place] [phone] FOLLOW UP 01/25/2019 Visit Diagnosis Plan: Abscess [...] ICD-10 : L02.213 01/23/2019 Appointment: Azra Bradley [address] [place], [place] [address] Patient called 01/21/19 to [facility] 01/23/2019 Patient Education: clindamycin HCl- [employer] Coupon [id number] [email or web address]/samplemd/resources/getResource/61/[email or web address] Completed 01/23/2019 Appointment: Azra Bradley [address] [place], [place] [phone] CANCELED 01/16/2019 Visit Diagnosis Plan: Hyperlipidemia, unspecified Disc ussion: updated labs obtained. ICD-9 : 272.4 ICD-10 : E78.5 10/31/2018 Visit Diagnosis Plan: Acute gastritis without [...] ICD-9 : 535.00 ICD-10 : K29.00 10/31/2018 Appointment: Azra Bradley [address] [place], [place] [phone] ACUTE ILLNESS 10/31/2018 Patient Education: High Blood [...] ICD-10 : K29.00 01/18/2018 Appointment: Azra Bradley [address] [place], [place] [phone] ACUTE ILLNESS 01/18/2018 Patient Education: Patient Medication Summary Completed 01/18/2018 Appointment: Sylvie Byrne WPtel: [facility] LAB 03/29/2017 Patient Education: Patient Medication Summary [...] ICD-10 : L72.3 03/15/2017 Appointment: Azra Bradley [address] [facility] OFFICE SURGERY 03/15/2017 Patient Education: Patient Medication Summary Completed 03/15/2017 Visit Diagnosis Plan: Pain in right knee Discussion: rickie manuel sent for xray of right knee. tramadol prescribed to be taken tid prn. continue wearing knee brace. will review xray and may need MRI with ortho referral if no improvement. call with worsening symptoms. ICD-9 : 719.46 ICD-10 : M25.561 03/13/2017 [facility] [facility] 03/13/2017 Patient Education: Patient Medication Summary Completed 03/13/2017 Care Plan: X-RAY EXAM OF KNEE 1 [place] 2 [place] : 51736-1 Pending 03/13/2017 Visit Diagnosis Plan: Pain in [...] ICD-10 : L72.3 02/27/2017 Appointment: Azra Bradley [address] [place] [address] ACUTE ILLNESS 02/27/2017 Patient Education: Patient Medication Summary Completed 02/27/2017 Appointment: Katerina Sousa WPtel: [phone] [place] [address] ACUTE ILLNESS 08/21/2015 Visit Plan: Has been off of Pravastatin. Will resume Pravastitin 20mg. and re- check labs in 3 months, Resume Lisinopril and Allopurinol Warm moist compresses to left chest lesion Complete doxycycline Return check after antibiotics completed if no improvement in lesion to left chest will refer for removal of nodular skin lesion upper right back. 03/31/2015 Appointment: Dagmar Ahmadi WPtel: [address] [place] [address] 03/30 Confirmed ~sl FOLLOW UP 03/31/2015 Patient Education: Patient Medication Summary Completed 03/31/2015 Visit Plan: CBC, CMP, TSH, Free T4, Lipi d Panel, Uric Acid, PSA, EKG Urine culture today Increase fluids to >120cc's daily. Notify if flank pain increases. Resume Lisinopril 20 mg PO daily Resume Allopurinol 100 mg Ciprofloxacin 500 mg PO bid Scheudule appt. for follow-up Colonscopy - [place] 01/07/2015 Appointment: Dagmar Ahmadi WPtel: [phone] [id number] 01/06 appointment confirmed cn Annual Well Visit 01/07/2015 Patient Education: Patient Medication Summary Completed 01/07/2015 Patient Education: [facility] - [employer] - Lisinopril - 18-64 - Dynamic Portal ID Completed 01/07/2015 Appointment: Sylvie Byrne WPtel: [address] [place] [address] ACUTE ILLNESS 08/26/2014 Appointment: Dagmar Ahmadi WPtel: [address] [place] [address] ACUTE ILLNESS 04/15/2014 Patient Education: Patient Medication Summary Completed 04/15/2014 Appointment: Sylvie Byrne WPtel: [address] [place] [address] US LAB 12/11/2013 Patient Education: Patient Medication Summary Completed 12/11/2013 Visit Plan: Check CBC, CMP, TSH, Free T4 , Lipids, uric acid, PSA--pt will return in AM for fasting lab Finish acyclovir Discussed Zostavax down road 12/10/2013 Appointment: Sylvie Byrne WPtel: [address] [place] [address] 12/06 left message FOLLOW UP 12/10/2013 Patient Education: Patient Medication Summary Completed 12/10/2013 Visit Plan: Lisinopril 20mg daily Stress Reducers and trial of fluoxetine 10mg q am Proceed with colonoscopy Check fasting lab 05/02/2013 Appointment: Syvlie Byrne WPtel: [address] [place] [address] ACUTE ILLNESS 05/02/2013 Patient Education: Patient Medication Summary Completed 05/02/2013 Appointment: Sylvie Byrne WPtel: [address] [place] [address] ACUTE ILLNESS 01/02/2013 Patient Education: Patient Medication Summary Completed 01/02/2013 Appointment: Liza Ragsdale WPtel: [address] [place] [address] ACUTE ILLNESS 10/10/2011 Patient Education: Patient Medication Summary Completed 10/10/2011 Appointment: [facility] [phone] [id number] [place] [facility] 09/15/2011 Patient Education: Patient Medication [...] Will seek re-eval if symptoms worsen 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 08/12/2011 Appointment: Liza Ragsdale WPtel: [address] [place] [address] ACUTE ILLNESS 08/12/2011 Patient Education: Patient Medication Summary Completed 08/12/2011 Visit Plan: Continue increased dose of a llopurinol and daily colcrys Recheck thyroid lab, uric acid and PSA in 3mos Will hold on NSAID at this time due to history of GERD 08/04/2011 Appointment: Sylvie Byrne WPtel: [address] [place], [place] [phone] FOLLOW UP 08/04/2011 Patient Education: Patient Medication Summary Completed 08/04/2011 Appointment: Sylvie Byrne WPtel: [address] [place], [place] [phone] [place] LAB 07/28/2011 Patient Education: Patient Medication Summary Completed 07/28/2011 Appointment: Sylvie Byrne WPtel: [phone] [place], [place] [id number] [place] LAB 05/25/2011 Patient Education: Patient Medication [...] at night. 05/24/2011 Appointment: Liza Ragsdale WPtel: [address] [place] [address] ACUTE ILLNESS 05/24/2011 Patient Education: Patient Medication Summary Completed 05/24/2011 Visit Plan: codeine/guif cough syrup and cefdinir are phoned to [facility]. Discussed fluids and rest. Pt. will notify if symptoms persist or worsen. 04/15/2011 Appointment: Liza Ragsdale WPtel: [address] [place] [address] ACUTE ILLNESS 04/15/2011 Patient Education: Patient Medication Summary Completed 04/15/2011 Appointment: Sylvie Byrne WPtel: [address] [place] [address] LAB 02/01/2011 Patient Education: Patient Medication Summary Completed 02/01/2011 Visit Plan: Repeat clavicle x-ray in 6wk s Check bone density 01/13/2011 Appointment: Sylvie Byrne WPtel: [address] [place] [address] FOLLOW UP 01/13/2011 Patient Education: Patient Medication Summary Completed 01/13/2011 Visit Plan: Check right clavicle and alda ulder x-ray Continue Vimovo and flexeril 12/23/2010 Appointment: Sylvie Byrne WPtel: [address] [place] [address] FOLLOW UP 12/23/2010 Patient Education: Patient Medication Summary Completed 12/23/2010 Appointment: Sylvie Byrne WPtel: [address] [place] [address] ER Follow UP 12/15/2010 Patient Education: Patient [...] BP check. 12/02/2010 Appointment: Liza Ragsdale WPtel: [address] [place], [place] [phone] ACUTE ILLNESS 12/02/2010 Patient Education: Patient Medication Summary Completed 12/02/2010 Care Plan: ASSAY OF BLOOD/URIC ACID Pendi ng 12/02/2010 Care Plan: VCA AB G/M Pending 2010 Care Plan: EB GARY AG Pending 2010 Care Plan: EB NUCL AB Pending 2010 Appointment: Sylvie Byrne WPtel: [address] [place], [place] [phone] FOLLOW UP 11/18/2010 Visit Plan: benadryl 25 mg tab QHS. 12.5 mg tab every 8 hrs during the day. Pt. will notify if symptoms worsen. No facial edema present. 04/19/2010 Appointment: Liza Ragsdale WPtel: [address] [place], [place] [phone] FOLLOW UP 04/19/2010 Patient Education: Patient Medication [...] no improvement. 04/14/2010 Appointment: Liza Ragsdale WPtel: [address] [place], [place] [phone] ACUTE ILLNESS 04/14/2010 Patient Education: Patient Medication Summary Completed 04/14/2010 Appointment: Liza Ragsdale WPtel: [address] [place], [place] [phone] ACUTE ILLNESS 03/12/2010 [facility]ment: [facility] [phone] [id number] [place] [facility] 09/14/2009 Patient Education: Patient Medication Summary Completed 09/14/2009 App[facility]ment: [facility] [phone] [id number] [facility] [facility] 09/01/2009 Patient Education: Patient Medication [...] 100 mg Ciprofloxacin 500 mg PO bid [facility]-up Colonscopy - Cand[facility] . 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 . Continue increased dose of [...]
--- OUTSIDE RECORDS SUMMARY | 2019-10-17 10:32 | XMS REPORT | CCD ---
Author Author Renan Byrne D.O. 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] Problems Condition Codes Effective Dates Condition Status Acute contact dermatitis ICD-9: 692.9 ICD-10: L25.9 [...] Instructions hydroxyzine HCl 25 mg tablet RxNorm: 458629 1 Tablet(s) Oral Q8 H as needed 06/14/2019 06/14/2019 Inactive Cipro 500 mg tablet RxNorm: 820112 1 Tablet(s) Oral two times a day 06/14/2019 06/19/2019 Active Cipro 500 mg tablet RxNorm: 026402 1 Tablet(s) Oral two times a day 06/14/2019 06/13/2019 Inactive hydroxyzine HCl 25 mg tablet RxNorm: 711374 1 Tablet(s) Oral Q8 H as needed 06/14/2019 06/13/2019 Inactive prednisone 20 mg tablet RxNorm: 630554 1 Tablet(s) Oral two lat[place] es a day 05/31/2019 06/05/2019 Inactive Elimite 5 % topical cream RxNorm: 029467 Application To pical QPM from head to toe 05/17/2019 07/16/2019 Active Medrol (Nicholas) 4 mg tablets in a dose pack RxNorm: 143529 6 Tablet(s) Oral QD --then as directed 05/17/2019 05/23/2019 Inactive Osteo Bi-Flex 250 mg-200 mg tablet RxNorm: 206433 2 Tablet(s) O ral QD 01/23/2019 No Stop Date Active clindamycin HCl 300 mg capsule RxNorm: 657311 2 Capsule (s) Oral three times a day 01/23/2019 01/30/2019 Inactive Flagyl 500 mg tablet RxNorm: 164099 1 Tablet(s) PO BID 10/31/2018 Inactive lisinopril 20 mg tablet RxNorm: 870481 1 Tablet(s) PO QD for bl ood pressure 09/13/2018 12/11/2018 Inactive allopurinol 100 mg tablet RxNorm: 155524 1 Tablet(s) PO QD 09/14/19 19 12/11/2018 Inactive Flagyl 500 mg tablet RxNorm: 535635 1 Tablet(s) PO BID 01/18/2018 Inactive Cipro 250 mg tablet RxNorm: 653720 1 Tablet(s) PO BID 01/18/201801/08 Inactive lisinopril 20 mg tablet RxNorm: 468088 1 Tablet(s) PO QD for bl ood pressure 11/06/2017 02/03/2018 Inactive allopurinol 100 mg tablet RxNorm: 185459 1 Tablet(s) PO QD 11/07/19 18 02/03/2018 Inactive allopurinol 100 mg tablet RxNorm: 616760 1 Tablet(s) PO QD 04/11/19 18 10/07/2017 Inactive lisinopril 20 mg tablet RxNorm: 535998 1 Tablet(s) PO QD for bl ood pressure 04/07/2017 11/05/2017 Inactive prednisone 20 mg tablet RxNorm: 397771 2 Tablet(s) PO QD 03/15/2017 1 05/18/2016 Inactive tramadol 50 mg tablet RxNorm: 559226 1-2 Tablet(s) PO TID as needed 03/13/2017 08/06/2017 Inactive Medrol (Nicholas) 4 mg tablets in a dose pack RxNorm: 199128 Tablet(s) PO As Directed 02/28/2017 08/01/2017 Inactive allopurinol 100 mg tablet RxNorm: 732128 1 Tablet(s) PO QD 04/11/19 17 04/11/2017 Inactive lisinopril 20 mg tablet RxNorm: 393122 1 Tablet(s) PO QD for bl ood pressure 04/11/2016 04/07/2017 Inactive pravastatin 20 mg tablet RxNorm: 773788 1 Tablet(s) PO QD 01/13/2016 02/26/2017 Inactive pravastatin 20 mg tablet RxNorm: 317421 TAKE 1 TABLET DAILY 016 01/13/2016 Inactive pravastatin 40 mg tablet RxNorm: 936315 1 Tablet(s) PO QD 03/31/2015 03/31/2015 Inactive pravastatin 20 mg tablet RxNorm: 031592 1 Tablet(s) PO QD 03/31/2015 06/28/2015 Inactive doxycycline hyclate 100 mg capsule RxNorm: 6247158 1 Capsule(s) PO BID 03/31/2015 04/09/2015 Inactive mupirocin 2 % topical ointment RxNorm: 260066 Apply TOP BID to affected lesions 03/31/2015 08/01/2017 Inactive pravastatin 40 mg tablet RxNorm: 859420 1 Tablet(s) PO QD 01/08/2015 03/30/2015 Inactive lisinopril 20 mg tablet RxNorm: 062220 1 Tablet(s) PO QD for bl ood pressure 01/07/2015 12/31/2015 Inactive allopurinol 100 mg tablet RxNorm: 427611 1 Tablet(s) PO QD 01/08/20 15 04/10/2016 Inactive ciprofloxacin 500 mg tablet RxNorm: 181353 1 Tablet(s) PO BID 01/0701/13/2015 Inactive doxycycline hyclate 100 mg capsule RxNorm: 8406921 1 Capsule(s) PO BID 04/15/2014 04/24/2014 Inactive fluoxetine 10 mg capsule RxNorm: 982235 1 Capsule(s) PO QAM 014 04/14/2014 Inactive lisinopril 20 mg tablet RxNorm: 486009 1 Tablet(s) PO QD for bl ood pressure 05/02/2013 04/26/2014 Inactive Cipro 500 mg tablet RxNorm: 721993 1 Tablet(s) PO BID 01/02/201312/10 Inactive Cipro 500 mg tablet RxNorm: 268597 1 Tablet(s) PO BID 01/02/201304/2012 Inactive doxycycline hyclate 100 mg Cap RxNorm: 252909 1 Capsule(s) PO BID 0 10/10/2011 10/19/2011 Inactive Culturelle 10 billion cell Cap RxNorm: 382198 1 Capsule(s) PO BID 0 08/12/2011 09/10/2011 Inactive Colcrys 0.6 mg Tab RxNorm: 813413 1 Tablet(s) PO BID 08/04/201111/30 Inactive allopurinol 100 mg Tab RxNorm: 612401 1 Tablet(s) PO BID 07/13/2011 0 08/03/2011 Inactive clotrimazole-betamethasone 1 %-0.05 % Topical Cream RxNorm: 192647 1 Application TOP BID 06/10/2011 06/23/2011 Inactive clotrimazole-betamethasone 1 %-0.05 % Topical Cream RxNorm: 187451 1 Application TOP BID 05/24/2011 06/06/2011 Inactive Colcrys 0.6 mg Tab RxNorm: 837592 1 Tablet(s) PO BID 05/24/201108/02 Inactive cefdinir 300 mg Cap RxNorm: 202067 1 Capsule(s) PO BID 04/15/2011 Inactive Daypro 600 mg Tab RxNorm: 715086 1 Tablet(s) PO BID 12/15/20102010 Inactive for pain Medrol (Nicholas) 4 mg Tabs in a Dose Pack RxNorm: 057182 Tablet(s) PO 0 12/09/2010 12/15/2010 Inactive as directed Colcrys 0.6 mg Tab RxNorm: 935560 1 Tablet(s) PO BID 12/06/201001/04 Inactive lisinopril-hydrochlorothiazide 20 mg-12.5 mg Tab RxNorm: 197 886 1 Tablet(s) PO QAM 12/02/2010 01/30/2011 Inactive ranitidine 150 mg tablet RxNorm: 8420305 1 Tablet(s) PO BID Pt will phone before filing this script. 04/14/2010 05/13/2010 Inactive allopurinol 100 mg Tab RxNorm: 425794 1 Tablet(s) PO BID 09/16/2009 0 11/14/2009 Inactive lisinopril-hydrochlorothiazide 20 mg-12.5 mg Tab RxNorm: 197 886 1 Tablet(s) PO QAM 06/23/2009 08/31/2009 Inactive ibuprofen 200 mg tablet RxNorm: 272080 4 Tablet(s) PO QAM No Start Da te Active Zithromax Z-Nicholas 250 mg Tab RxNorm: 331100 Tablet(s) PO as direc tenzin No Start Date 01/12/2011 Inactive Ultram Oral RxNorm: Oral No Start Date 01/01/2013 Inactive allopurinol 100 mg tablet RxNorm: 340262 1 Tablet(s) PO QD No Start Date 01/06/2015 Inactive pravastatin 40 mg tablet RxNorm: 150360 1 Tablet(s) PO QD No Start Date 01/07/2015 Inactive Naprosyn 500 mg tablet RxNorm: 164069 1 Tablet(s) PO BID No Start D ate 05/01/2013 Inactive azithromycin 250 mg tablet RxNorm: 491923 2 Tablet(s) P O QD take 2 tablets (500 mg) by oral route once daily for 1 day then 1 tablet (250 mg) by oral route once daily for 4 days No Start Date 01/12/2011 Inactive allopurinol 300 mg Tab RxNorm: 659769 1 Tablet(s) PO QD No Start Da te 01/01/2013 Inactive Colcrys 0.6 mg tablet RxNorm: 844686 1 Tablet(s) PO BID No Start Da te 05/01/2013 Inactive Medrol (Nicholas) 4 mg tablets in a dose pack RxNorm: 618454 Tablet(s) PO As Directed No Start Date 02/27/2017 Inactive hydrocodone 5 mg-acetaminophen 325 mg tablet RxNorm: 450235 1 Tablet(s) PO Q4H as needed for pain No Start Date 12/09/2013 Inactive ranitidine 150 mg Tab RxNorm: 4774241 1 Tablet(s) PO BID No Start D ate 04/13/2010 Inactive Allopurinol 100 mg Tab RxNorm: 330578 1 Tablet(s) PO BID No Start D ate 09/15/2009 Inactive coenzyme Q10 200 mg capsule RxNorm: 974989 1 Capsule(s) PO QD No St art Date 03/30/2015 Inactive Mobic 7.5 mg tablet RxNorm: 712094 1 Tablet(s) PO QD No Start Date Inactive Osteo Bi-Flex (5-Loxin) 1,500 mg-400 unit-100 mg tablet RxNo rm: 1 Tablet(s) PO BID No Start Date 03/30/2015 Inactive hydrocodone-acetaminophen 7.5 mg-325 mg Tab RxNorm: 064169 1-2 Tablet(s) PO Q4-6H No Start Date 08/03/2011 Inactive as needed for pa in Neurontin 300 mg capsule RxNorm: 238265 1 Capsule(s) PO QD No Start Date 12/09/2013 Inactive Medrol (Nicholas) 4 mg Tabs in a Dose Pack RxNorm: 769303 Tablet(s) PO N o Start Date 12/08/2010 Inactive as directed Vitamin D2 1,000 unit capsule RxNorm: 403890 1 Capsule(s) PO QD No Start Date 03/30/2015 Inactive Flexeril 10 mg Tab RxNorm: 896307 1 Tablet(s) PO TID No Start Date Inactive for spasm Medication Administered No Medication Administered data Immunizations No Immunization data Results Observation Observation Code Item Item Code Result Date S ervice Location C DIFF MOL 2922805 C Diff Mol Int Negative 11/02/2018 Unk nown C Diff An 36984540 C Diff Analyzer Indeterminate 9 Unknown GFR CALC 0550889 GFR Non Afr Amr >60 mL/min 11/01/2018 Un known GFR CALC 9132832 GFR Afr Amr >60 mL/min 11/01/[address] LDL 5473834 HDL CHOLESTEROL 46 mg/dL 11/01/[address] LDL 0018183 Cholesterol 198 mg/dL 11/01/[address] LDL 0161205 Triglyceride 104 mg/dL 11/01/[address] LDL 4148820 LDL Direct 158 mg/dL 11/01/[address] LDL 8064984 NON-HDL Chol 152 mg/dL 11/01/2018 Unkno wn THYROID STIMULATING HORMONE 02973 TSH 1.276 uIU/mL 11/01/2018 Unknown COMPREHENSIVE METABOLIC 53279 AST 22 U/L 2018 Unknown COMPREHENSIVE METABOLIC 82963 ALT 17 U/L 2018 Unknown COMPREHENSIVE METABOLIC 79644 BUN 16 mg/dL 2018 Unknown COMPREHENSIVE METABOLIC 01412 ALBUMIN 4.3 g/dL 2018 Unknown COMPREHENSIVE METABOLIC 57518 CHLORIDE 103 mmol/L 11/01 Unknown COMPREHENSIVE METABOLIC 83589 Bili Total 0.9 mg/dL 11/01 Unknown COMPREHENSIVE METABOLIC 70236 ALK PHOS 62 U/L 2018 Unknown COMPREHENSIVE METABOLIC 40997 SODIUM 138 mmol/L 11/01 Unknown COMPREHENSIVE METABOLIC 24772 CREATININE 0.87 mg/dL 10/09 Unknown COMPREHENSIVE METABOLIC 20178 CALCIUM 9.2 mg/dL 2018 Unknown COMPREHENSIVE METABOLIC 97976 POTASSIUM 4.1 mmol/L 11/01 Unknown COMPREHENSIVE METABOLIC 51080 Total Protein 7.2 g/dL Unknown COMPREHENSIVE METABOLIC 18412 Glucose 81 mg/dL 2018 Unknown COMPREHENSIVE METABOLIC 08011 Bicarbonate 18 mmol/L 10/09 Unknown COMPREHENSIVE METABOLIC 51304 AGAP 17 mmol/L 2018 Unknown COMPLETE BLOOD COUNT 5259343 WBC 8.8 10e9/L 11/02/19 19 Unknown COMPLETE BLOOD COUNT 9479482 RBC 4.54 10e12/L 2018 Unknown COMPLETE BLOOD COUNT 6631545 HEMOGLOBIN 14.4 g/dL 11/02/19 19 Unknown COMPLETE BLOOD COUNT 9078831 HEMATOCRIT 44.0 % 11/02/19 19 Unknown COMPLETE BLOOD COUNT 5044343 MCV 96.9 fL 9 Unknown COMPLETE BLOOD COUNT 1810721 MCH 31.7 pg 9 Unknown COMPLETE BLOOD COUNT 3829013 MCHC 32.7 g/dL 9 Unknown COMPLETE BLOOD COUNT 5268923 PLATELET COUNT 239 10e9/L Unknown COMPLETE BLOOD COUNT 4584417 Mean Plt Volume 10.5 fL Unknown COMPLETE BLOOD COUNT 9459487 NRBC Absolute 0.00 10e9/L Unknown COMPLETE BLOOD COUNT 0919690 Neut Auto 65.2 % 9 Unknown COMPLETE BLOOD COUNT 9303237 NRBC/100 WBC 0.0 2018 Unknown COMPLETE BLOOD COUNT 3016205 Lymph Auto 23.1 % 11/02/19 19 Unknown COMPLETE BLOOD COUNT 9442398 [place] Auto 9.5 % 9 Unknown COMPLETE BLOOD COUNT 6676598 RDW 12.2 % 9 Unknown COMPLETE BLOOD COUNT 3358098 Eos Auto 1.7 % 9 Unknown COMPLETE BLOOD COUNT 4182524 Baso Auto 0.3 % 9 Unknown COMPLETE BLOOD COUNT 2558578 Neutrophil Abs 5.73 10e9/L Unknown COMPLETE BLOOD COUNT 9558390 Imm Gran Auto 0.2 % 11/01 Unknown COMPLETE BLOOD COUNT [id number] Lymphocyte Abs 2.03 10e9/L Unknown COMPLETE BLOOD COUNT [id number] Monocyte Abs 0.84 10e9/L 10/09 Unknown COMPLETE BLOOD COUNT 9147567 Eosinophil Abs 0.15 10e9/L Unknown COMPLETE BLOOD COUNT 5852303 RDW-SD 43.4 fL 9 Unknown COMPLETE BLOOD COUNT 9405899 Basophil Abs 0.03 10e9/L 10/09 Unknown COMPLETE BLOOD COUNT [id number] Imm Gran Abs 0.02 10e9/L 10/09 Unknown COMPREHENSIVE METABOLIC 87465 AST 17 U/L 2016 Unknown COMPREHENSIVE METABOLIC 00059 ALT 16 U/L 2016 Unknown COMPREHENSIVE METABOLIC 48450 BUN 15 mg/dL 2016 Unknown COMPREHENSIVE METABOLIC 22588 ALBUMIN 4.4 g/dL 2016 Unknown COMPREHENSIVE METABOLIC 76312 CHLORIDE 104 mmol/L 03/29 Unknown COMPREHENSIVE METABOLIC 16971 Bili Total 0.5 mg/dL 03/29 Unknown COMPREHENSIVE METABOLIC 83773 ALK PHOS 56 U/L 2016 Unknown COMPREHENSIVE METABOLIC 35712 SODIUM 139 mmol/L 03/29 Unknown COMPREHENSIVE METABOLIC 89177 CREATININE 0.88 mg/dL 03/11 Unknown COMPREHENSIVE METABOLIC 77016 CALCIUM 9.8 mg/dL 2016 Unknown COMPREHENSIVE METABOLIC 60701 POTASSIUM 4.2 mmol/L 03/29 Unknown COMPREHENSIVE METABOLIC 70853 Total Protein 6.8 g/dL Unknown COMPREHENSIVE METABOLIC 56982 Glucose 100 mg/dL 2016 Unknown COMPREHENSIVE METABOLIC 10597 Bicarbonate 30 mmol/L 03/11 Unknown COMPREHENSIVE METABOLIC 53813 AGAP 5 mmol/L 2016 Unknown THYROID STIMULATING HORMONE 96371 TSH 1.077 uIU/mL 03/29/2017 Unknown URIC ACID 65183 URIC ACID 5.2 mg/dL 03/29/2017 Unknown FREE T4 10897 T4 Free 1.04 ng/dL 03/29/2017 Unknown ERYTHROCYTE SEDIMENTATION RATE 15628 Sed Rate 21 mm/hr 03/29/2017 Unknown COMPLETE BLOOD COUNT 6790410 WBC 5.9 10e9/L 03/29/20 17 Unknown COMPLETE BLOOD COUNT 8678485 RBC 4.52 10e12/L 2016 Unknown COMPLETE BLOOD COUNT 8636304 HEMOGLOBIN 14.6 g/dL 03/29/20 17 Unknown COMPLETE BLOOD COUNT 7708745 HEMATOCRIT 44.7 % 03/29/20 17 Unknown COMPLETE BLOOD COUNT 0099902 MCV 98.9 fL 7 Unknown COMPLETE BLOOD COUNT 2629696 MCH 32.3 pg 7 Unknown COMPLETE BLOOD COUNT 7256204 MCHC 32.7 g/dL 7 Unknown COMPLETE BLOOD COUNT 3582944 PLATELET COUNT 262 10e9/L Unknown COMPLETE BLOOD COUNT 0757922 Mean Plt Volume 10.1 fL Unknown COMPLETE BLOOD COUNT 9741442 Neut Auto 44.2 % 7 Unknown COMPLETE BLOOD COUNT 9293503 Lymph Auto 41.5 % 03/29/20 17 Unknown COMPLETE BLOOD COUNT 4141183 [place] Auto 11.2 % 7 Unknown COMPLETE BLOOD COUNT 1406030 RDW 12.3 % 7 Unknown COMPLETE BLOOD COUNT 2623958 Eos Auto 2.6 % 7 Unknown COMPLETE BLOOD COUNT 4570847 Baso Auto 0.5 % 7 Unknown COMPLETE BLOOD COUNT 7985328 Neutrophil Abs 2.61 10e9/L Unknown COMPLETE BLOOD COUNT 3232412 Lymphocyte Abs 2.45 10e9/L Unknown COMPLETE BLOOD COUNT 3858754 Monocyte Abs 0.66 10e9/L 03/11 Unknown COMPLETE BLOOD COUNT 5748442 Eosinophil Abs 0.15 10e9/L Unknown COMPLETE BLOOD COUNT 0766364 RDW-SD 43.7 fL 7 Unknown COMPLETE BLOOD COUNT 8703861 Basophil Abs 0.03 10e9/L 03/11 Unknown LIPID GROUP 66021 Cholesterol 248 mg/dL 03/29/2017 Unkno wn LIPID GROUP 01987 Triglyceride 87 mg/dL 03/29/2017 Unkn own L[facility] GROUP 29077 HDL CHOLESTEROL 49 mg/dL 03/29/2017 U nknown LIP[facility] GROUP 02706 Chol/HDL Ratio 5.06 ratio 03/29/2017 U nknown LIP[facility] GROUP 94246 NON-HDL Chol 199 mg/dL 03/29/2017 Unkn own [facility] 16008 LDL Cholesterol 182 mg/dL 03/29/2017 U nknown GFR CALC 6673236 GFR Non Afr Amr >60 mL/min 03/29/2017 Un known GFR CALC 8746450 GFR Afr Amr >60 mL/min 03/29/2017 Unknow n HIV AG/AB 7878224 HIV Ag/Ab Non-Reactive 03/15/2017 Unkno wn VIRAL HEPATITIS PROFILE #2 92027 Hep A IgM Non-Reactive 03/15/2017 Unknown VIRAL HEPATITIS PROFILE #2 35666 Hep B Core IgM Non-Reac tive 03/15/2017 Unknown VIRAL HEPATITIS PROFILE #2 99479 Hepatitis C Ab Non-Reac tive 03/15/2017 Unknown VIRAL HEPATITIS PROFILE #2 23309 Hep Bs Ag Non-Reactive 03/15/2017 Unknown COMPREHENSIVE METABOLIC 19492 AST 23 U/L 2014 Unknown COMPREHENSIVE METABOLIC 32727 ALT 21 IU/L 2014 Unknown COMPREHENSIVE METABOLIC 47544 BUN 13 MG/DL 2014 Unknown COMPREHENSIVE METABOLIC 44961 ALBUMIN 4.3 GM/DL 2014 Unknown COMPREHENSIVE METABOLIC 57308 CHLORIDE 105 MMOL/L 01/07 Unknown COMPREHENSIVE METABOLIC 58028 BILI TOT 0.7 MG/DL 2014 Unknown COMPREHENSIVE METABOLIC 45966 ALK PHOS 51 U/L 2014 Unknown COMPREHENSIVE METABOLIC 45337 SODIUM 139 MMOL/L 01/07 Unknown COMPREHENSIVE METABOLIC 35593 CREATININE 0.85 MG/DL 12/11 Unknown COMPREHENSIVE METABOLIC 61309 CALCIUM 9.5 MG/DL 2014 Unknown COMPREHENSIVE METABOLIC 58518 POTASSIUM 4.4 MMOL/L 01/07 Unknown COMPREHENSIVE METABOLIC 20466 PROT TOT 6.7 GM/DL 2014 Unknown COMPREHENSIVE METABOLIC 01977 Glucose 100 MG/DL 2014 Unknown COMPREHENSIVE METABOLIC 18356 BICARB 27 MMOL/L 2014 Unknown COMPREHENSIVE METABOLIC 34132 ANION GAP 7 MEQ/L 2014 Unknown THYROID STIMULATING HORMONE 82646 TSH 0.900 uIU/ML 01/07/2015 Unknown COMPLETE BLOOD COUNT 4793478 WBC 4.9 10e9/L 01/08/20 15 Unknown COMPLETE BLOOD COUNT 3715330 RBC 4.71 10e12/L 2014 Unknown COMPLETE BLOOD COUNT 6337261 HGB 15.3 g/dL 5 Unknown COMPLETE BLOOD COUNT 3465584 HCT DET 46.1 % 5 Unknown COMPLETE BLOOD COUNT 9193727 MCV 97.9 fL 5 Unknown COMPLETE BLOOD COUNT 5449515 MCH 32.5 pg 5 Unknown COMPLETE BLOOD COUNT 5262280 MCHC 33.2 g/dL 5 Unknown COMPLETE BLOOD COUNT 4586561 PLT 227 10e9/L 01/08/20 15 Unknown COMPLETE BLOOD COUNT 8220702 MPV 10.9 fL 5 Unknown COMPLETE BLOOD COUNT 5372200 [place] % 53.0 % 5 Unknown COMPLETE BLOOD COUNT 9460213 LY % 35.8 % 5 Unknown COMPLETE BLOOD COUNT 4813976 MON % 8.6 % 5 Unknown COMPLETE BLOOD COUNT 0883910 EOS % 2.2 % 5 Unknown COMPLETE BLOOD COUNT 1621850 BASO % 0.4 % 5 Unknown COMPLETE BLOOD COUNT 3757759 RDW 12.9 % 5 Unknown COMPLETE BLOOD COUNT 6648288 ABS VERONIQUE 2.60 10e9/L 015 Unknown COMPLETE BLOOD COUNT 5505026 ABS LYMPH 1.75 10e9/L 015 Unknown COMPLETE BLOOD COUNT 1559720 ABS MONO 0.42 10e9/L 015 Unknown COMPLETE BLOOD COUNT 9150538 ABS EOS 0.11 10e9/L 015 Unknown COMPLETE BLOOD COUNT 1899262 ABS BASO 0.02 10e9/L 015 Unknown COMPLETE BLOOD COUNT 2375743 RDW-SD 45.7 fL 5 Unknown URIC ACID 20614 URIC ACID 6.7 MG/DL 01/07/2015 Unknown LIPID GROUP 43289 HDL TEST 52 MG/DL 01/07/2015 Unknown LIP[facility] GROUP 33944 TRIG 158 MG/DL 01/07/2015 Unknown L[facility] GROUP 22338 TEST LDL 157 MG/DL 01/07/2015 Unknown LIPID GROUP 72114 CHOL 241 MG/DL 01/07/2015 Unknown LIP[facility] GROUP 59113 RCHOL/HDL 4.63 RATIO 01/07/2015 Unknow n LIP[facility] GROUP 94964 NON-HDL CH 189 MG/DL 01/07/2015 Unknow n GFR CALC 3899838 GFR AA >60 ML/MIN 01/07/2015 Unknown GFR CALC 4526518 GFR NON-AA >60 ML/MIN 01/07/2015 Unknown PSA EQUIMOLAR JONATAN 30711 PSA EQ 2.18 NG/ML 5 Unknown FREE T4 81280 FREE T4 1.04 NG/DL 01/07/2015 Unknown GFR CALC 2903662 GFR AA >60 ML/MIN 12/11/2013 Unknown GFR CALC 9518751 GFR NON-AA >60 ML/MIN 12/11/2013 Unknown LIPID GROUP 70145 HDL TEST 54 MG/DL 12/11/2013 Unknown LIPID GROUP 60500 TRIG 81 MG/DL 12/11/2013 Unknown LIPID GROUP 23358 TEST LDL 185 MG/DL 12/11/2013 Unknown LIPID GROUP 39757 CHOL 255 MG/DL 12/11/2013 Unknown LIPID GROUP 24797 RCHOL/HDL 4.72 RATIO 12/11/2013 Unknow n LIPID GROUP 63668 NON-HDL CH 201 MG/DL 12/11/2013 Unknow n URIC ACID 70008 URIC ACID 7.1 MG/DL 12/11/2013 Unknown PSA EQUIMOLAR JONATAN 76683 PSA EQ 3.80 NG/ML 4 Unknown COMPLETE BLOOD COUNT 6109768 WBC 5.9 10e9/L 12/12/19 14 Unknown COMPLETE BLOOD COUNT 8944435 RBC 4.40 10e12/L 2013 Unknown COMPLETE BLOOD COUNT 9775333 HGB 14.5 g/dL 4 Unknown COMPLETE BLOOD COUNT 3911143 HCT DET 43.6 % 4 Unknown COMPLETE BLOOD COUNT 6726064 MCV 99.1 fL 4 Unknown COMPLETE BLOOD COUNT 9055057 MCH 33.0 pg 4 Unknown COMPLETE BLOOD COUNT 4329158 MCHC 33.3 g/dL 4 Unknown COMPLETE BLOOD COUNT 2898234 PLT 289 10e9/L 12/12/19 14 Unknown COMPLETE BLOOD COUNT 9887488 MPV 10.2 fL 4 Unknown COMPLETE BLOOD COUNT 2949444 [place] % 47.9 % 4 Unknown COMPLETE BLOOD COUNT 1659435 LY % 40.6 % 4 Unknown COMPLETE BLOOD COUNT 6920252 MON % 8.8 % 4 Unknown COMPLETE BLOOD COUNT 0956576 EOS % 2.2 % 4 Unknown COMPLETE BLOOD COUNT 9537139 BASO % 0.5 % 4 Unknown COMPLETE BLOOD COUNT 9130245 RDW 12.9 % 4 Unknown COMPLETE BLOOD COUNT 8318235 ABS [place] 2.83 10e9/L 014 Unknown COMPLETE BLOOD COUNT 4725889 ABS LYMPH 2.40 10e9/L 014 Unknown COMPLETE BLOOD COUNT 7908392 ABS MONO 0.52 10e9/L 014 Unknown COMPLETE BLOOD COUNT 2700803 ABS EOS 0.13 10e9/L 014 Unknown COMPLETE BLOOD COUNT 9330316 ABS BASO 0.03 10e9/L 014 Unknown COMPLETE BLOOD COUNT 9967102 RDW-SD 45.7 fL 4 Unknown THYROID STIMULATING HORMONE 56607 TSH 1.013 uIU/ML 12/11/2013 Unknown COMPREHENSIVE METABOLIC 70370 AST 20 U/L 2013 Unknown COMPREHENSIVE METABOLIC 53861 ALT 16 IU/L 2013 Unknown COMPREHENSIVE METABOLIC 47173 BUN 17 MG/DL 2013 Unknown COMPREHENSIVE METABOLIC 31004 ALBUMIN 4.6 GM/DL 2013 Unknown COMPREHENSIVE METABOLIC 14585 CHLORIDE 107 MMOL/L 12/11 Unknown COMPREHENSIVE METABOLIC 19357 BILI TOT 0.7 MG/DL 2013 Unknown COMPREHENSIVE METABOLIC 87668 ALK PHOS 53 U/L 2013 Unknown COMPREHENSIVE METABOLIC 90927 SODIUM 140 MMOL/L 12/11 Unknown COMPREHENSIVE METABOLIC 10045 CREATININE 0.84 MG/DL 06/2013 Unknown COMPREHENSIVE METABOLIC 92306 CALCIUM 9.7 MG/DL 2013 Unknown COMPREHENSIVE METABOLIC 17616 POTASSIUM 4.6 MMOL/L 12/11 Unknown COMPREHENSIVE METABOLIC 83858 PROT TOT 6.9 GM/DL 2013 Unknown COMPREHENSIVE METABOLIC 69107 Glucose 97 MG/DL 2013 Unknown COMPREHENSIVE METABOLIC 27672 BICARB 25 MMOL/L 2013 Unknown COMPREHENSIVE METABOLIC 82613 ANION GAP 8 MEQ/L 2013 Unknown FREE T4 83904 FREE T4 1.11 NG/DL 12/11/2013 Unknown ASSAY OF CREATININE 66572 CREATININE 0.98 MG/DL 09/15/19 12 Unknown URIC ACID 35232 URIC ACID 4.9 MG/DL 09/15/2011 Unknown GFR CALC 0060897 GFR AA >60 ML/MIN 09/15/2011 Unknown GFR CALC 4848515 GFR NON-AA >60 ML/MIN 09/15/2011 Unknown THYROID STIMULATING HORMONE 36497 TSH 1.687 uIU/ML 08/01/2011 Unknown FREE T4 76065 FREE T4 0.96 NG/DL 08/01/2011 Unknown SJOGRENS 4777562 SJOGRN A <20 EU/ML 08/01/2011 Unknown SJOGRENS 9529349 SJOGRN B <20 EU/ML 08/01/2011 Unknown SJOGRENS 8147651 NONHIS INT SEE BELO 08/01/2011 Unknown THYRO PERX 9467810 THYRO PERX 175.34 UNITS 07/30/2011 Unkn own DNA AB 7477660 DNA AB 32 IU/ML 07/29/2011 Unknown TITER WENDI 0720567 TITR WENDI 1:160 07/29/2011 Unknown TITER WENDI [id number] PATTERN NUCLEOLR 07/29/2011 Unknown ANTINUCLEAR ANTIBODY SCREEN 97742 WENDI SCR POSITIVE Unknown COMPREHENSIVE METABOLIC 11335 AST 23 U/L 2011 Unknown COMPREHENSIVE METABOLIC 54184 ALT 26 IU/L 2011 Unknown COMPREHENSIVE METABOLIC 61754 BUN 18 MG/DL 2011 Unknown COMPREHENSIVE METABOLIC 38971 ALBUMIN 4.6 GM/DL 2011 Unknown COMPREHENSIVE METABOLIC 84573 CHLORIDE 105 MMOL/L 07/27 Unknown COMPREHENSIVE METABOLIC 53713 BILI TOT 0.5 MG/DL 2011 Unknown COMPREHENSIVE METABOLIC 26955 ALK PHOS 63 U/L 2011 Unknown COMPREHENSIVE METABOLIC 79586 SODIUM 138 MMOL/L 07/27 Unknown COMPREHENSIVE METABOLIC 32707 CREATININE 0.92 MG/DL 07/09 Unknown COMPREHENSIVE METABOLIC 12687 CALCIUM 9.4 MG/DL 2011 Unknown COMPREHENSIVE METABOLIC 58765 POTASSIUM 3.9 MMOL/L 07/27 Unknown COMPREHENSIVE METABOLIC 02543 PROT TOT 6.7 GM/DL 2011 Unknown COMPREHENSIVE METABOLIC 51034 Glucose 101 MG/DL 2011 Unknown COMPREHENSIVE METABOLIC 54604 BICARB 24 MMOL/L 2011 Unknown COMPREHENSIVE METABOLIC 70926 ANION GAP 9 MEQ/L 2011 Unknown GFR CALC 9009205 GFR AA >60 ML/MIN 07/28/2011 Unknown GFR CALC 0028432 GFR NON-AA >60 ML/MIN 07/28/2011 Unknown ERYTHROCYTE SEDIMENTATION RATE 17507 ESR 2 MM/HR 07/28/2011 Unknown URIC ACID 15877 URIC ACID 5.8 MG/DL 07/28/2011 Unknown C-REACTIVE PROTEIN (CRP) QUANT 77058 CRP 0.2 MG/DL 07/28/2011 Unknown TITER WENDI [id number] TITR WENDI 1:160 05/26/2011 Unknown TITER WENDI [id number] PATTERN NUCLEOLR 05/26/2011 Unknown RA FACTOR [id number] RA FACTOR <20.0 IU/ML 05/26/2011 Unknown ANTINUCLEAR ANTIBODY SCREEN 95203 WENDI SCR POSITIVE Unknown URIC ACID 94425 URIC ACID 8.7 MG/DL 05/25/2011 Unknown PSA EQUIMOLAR JONATAN 48750 PSA EQ 2.79 NG/ML 2 Unknown LIPID GROUP 84082 HDL TEST 47 MG/DL 05/25/2011 Unknown LIPID GROUP 47033 TRIG 198 MG/DL 05/25/2011 Unknown LIPID GROUP 65793 TEST LDL 180 MG/DL 05/25/2011 Unknown LIPID GROUP 83204 CHOL 267 MG/DL 05/25/2011 Unknown LIPID GROUP 12865 RCHOL/HDL 5.68 RATIO 05/25/2011 Unknow n COMPREHENSIVE METABOLIC 08577 AST 21 U/L 2011 Unknown COMPREHENSIVE METABOLIC 14728 ALT 21 IU/L 2011 Unknown COMPREHENSIVE METABOLIC 99042 BUN 16 MG/DL 2011 Unknown COMPREHENSIVE METABOLIC 60268 ALBUMIN 4.4 GM/DL 2011 Unknown COMPREHENSIVE METABOLIC 15660 CHLORIDE 105 MMOL/L 05/25 Unknown COMPREHENSIVE METABOLIC 64111 BILI TOT 0.7 MG/DL 2011 Unknown COMPREHENSIVE METABOLIC 70867 ALK PHOS 60 U/L 2011 Unknown COMPREHENSIVE METABOLIC 63530 SODIUM 139 MMOL/L 05/25 Unknown COMPREHENSIVE METABOLIC 35998 CREATININE 0.92 MG/DL 05/11 Unknown COMPREHENSIVE METABOLIC 18166 CALCIUM 9.4 MG/DL 2011 Unknown COMPREHENSIVE METABOLIC 11113 POTASSIUM 4.1 MMOL/L 05/25 Unknown COMPREHENSIVE METABOLIC 71806 PROT TOT 7.0 GM/DL 2011 Unknown COMPREHENSIVE METABOLIC 21276 Glucose 108 MG/DL 2011 Unknown COMPREHENSIVE METABOLIC 69550 BICARB 25 MMOL/L 2011 Unknown COMPREHENSIVE METABOLIC 92886 ANION GAP 9 MEQ/L 2011 Unknown GFR CALC [id number] GFR AA >60 ML/MIN 05/25/2011 Unknown GFR CALC [id number] GFR NON-AA >60 ML/MIN 05/25/2011 Unknown COMPLETE BLOOD COUNT 79785 WBC 5.6 10e9/L 05/25/19 12 Unknown COMPLETE BLOOD COUNT 86345 RBC 5.01 10e12/L 2011 Unknown COMPLETE BLOOD COUNT 18366 HGB 15.8 g/dL 2 Unknown COMPLETE BLOOD COUNT 40631 HCT DET 46.1 % 2 Unknown COMPLETE BLOOD COUNT 34006 MCV 92.0 fL 2 Unknown COMPLETE BLOOD COUNT 16081 MCH 31.5 pg 2 Unknown COMPLETE BLOOD COUNT 06560 MCHC 34.3 g/dL 2 Unknown COMPLETE BLOOD COUNT 43152 PLT 246 10e9/L 05/25/19 12 Unknown COMPLETE BLOOD COUNT 87582 MPV 10.3 fL 2 Unknown COMPLETE BLOOD COUNT 94759 VERONIQUE % 47.1 % 2 Unknown COMPLETE BLOOD COUNT 19953 LY % 41.0 % 2 Unknown COMPLETE BLOOD COUNT 87164 MON % 8.9 % 2 Unknown COMPLETE BLOOD COUNT 57946 EOS % 2.5 % 2 Unknown COMPLETE BLOOD COUNT 97736 BASO % 0.5 % 2 Unknown COMPLETE BLOOD COUNT 81321 RDW 12.7 % 2 Unknown COMPLETE BLOOD COUNT 09088 ABS VERONIQUE 2.64 10e9/L 012 Unknown COMPLETE BLOOD COUNT 45331 ABS LYMPH 2.30 10e9/L 012 Unknown COMPLETE BLOOD COUNT 53269 ABS MONO 0.50 10e9/L 012 Unknown COMPLETE BLOOD COUNT 14165 ABS EOS 0.14 10e9/L 012 Unknown COMPLETE BLOOD COUNT 95447 ABS BASO 0.03 10e9/L 012 Unknown COMPLETE BLOOD COUNT 26954 RDW-SD 41.3 fL 2 Unknown COMPREHENSIVE METABOLIC 47430 AST 18 U/L 2010 Unknown COMPREHENSIVE METABOLIC 76636 ALT 14 IU/L 2010 Unknown COMPREHENSIVE METABOLIC 40970 BUN 12 MG/DL 2010 Unknown COMPREHENSIVE METABOLIC 65079 ALBUMIN 4.6 GM/DL 2010 Unknown COMPREHENSIVE METABOLIC 46379 CHLORIDE 102 MMOL/L 02/01 Unknown COMPREHENSIVE METABOLIC 21011 BILI TOT 0.6 MG/DL 2010 Unknown COMPREHENSIVE METABOLIC 66105 ALK PHOS 66 U/L 2010 Unknown COMPREHENSIVE METABOLIC 49996 SODIUM 139 MMOL/L 02/01 Unknown COMPREHENSIVE METABOLIC 36389 CREATININE 0.92 MG/DL 01/09 Unknown COMPREHENSIVE METABOLIC 34221 CALCIUM 9.8 MG/DL 2010 Unknown COMPREHENSIVE METABOLIC 55251 POTASSIUM 4.1 MMOL/L 02/01 Unknown COMPREHENSIVE METABOLIC 59653 PROT TOT 7.0 GM/DL 2010 Unknown COMPREHENSIVE METABOLIC 42469 Glucose 101 MG/DL 2010 Unknown COMPREHENSIVE METABOLIC 23567 BICARB 25 MMOL/L 2010 Unknown COMPREHENSIVE METABOLIC 87564 ANION GAP 12 MEQ/L 2010 Unknown GFR CALC [id number] GFR AA >60 ML/MIN 02/01/2011 Unknown GFR CALC [id number] GFR NON-AA >60 ML/MIN 02/01/2011 Unknown LIPID GROUP 31069 HDL TEST 44 MG/DL 02/01/2011 Unknown LIPID GROUP 80284 TRIG 157 MG/DL 02/01/2011 Unknown LIPID GROUP 37115 TEST LDL 193 MG/DL 02/01/2011 Unknown LIPID GROUP 73821 CHOL 268 MG/DL 02/01/2011 Unknown LIPID GROUP 85277 RCHOL/HDL 6.09 RATIO 02/01/2011 Unknow n FREE T4 32970 FREE T4 1.04 NG/DL 02/01/2011 Unknown COMPLETE BLOOD COUNT 03881 WBC 6.4 10e9/L 02/02/20 11 Unknown COMPLETE BLOOD COUNT 22854 RBC 4.56 10e12/L 2010 Unknown COMPLETE BLOOD COUNT 97278 HGB 14.4 g/dL 1 Unknown COMPLETE BLOOD COUNT 98807 HCT DET 43.0 % 1 Unknown COMPLETE BLOOD COUNT 13858 MCV 94.3 fL 1 Unknown COMPLETE BLOOD COUNT 75989 MCH 31.6 pg 1 Unknown COMPLETE BLOOD COUNT 05564 MCHC 33.5 g/dL 1 Unknown COMPLETE BLOOD COUNT 55989 PLT 300 10e9/L 02/02/20 11 Unknown COMPLETE BLOOD COUNT 30492 MPV 9.9 fL 1 Unknown COMPLETE BLOOD COUNT 29351 VERONIQUE % 38.5 % 1 Unknown COMPLETE BLOOD COUNT 91672 LY % 49.1 % 1 Unknown COMPLETE BLOOD COUNT 07329 MON % 10.1 % 1 Unknown COMPLETE BLOOD COUNT 33247 EOS % 1.7 % 1 Unknown COMPLETE BLOOD COUNT 29545 BASO % 0.6 % 1 Unknown COMPLETE BLOOD COUNT 73307 RDW 15.1 % 1 Unknown COMPLETE BLOOD COUNT 35858 ABS VERONIQUE 2.46 10e9/L 011 Unknown COMPLETE BLOOD COUNT 42667 ABS LYMPH 3.14 10e9/L 011 Unknown COMPLETE BLOOD COUNT 89612 ABS MONO 0.65 10e9/L 011 Unknown COMPLETE BLOOD COUNT 12181 ABS EOS 0.11 10e9/L 011 Unknown COMPLETE BLOOD COUNT 77898 ABS BASO 0.04 10e9/L 011 Unknown COMPLETE BLOOD COUNT 69030 RDW-SD 50.6 fL 1 Unknown THYROID STIMULATING HORMONE 41571 TSH 1.128 uIU/ML 02/01/2011 Unknown PSA EQUIMOLAR JONATAN 34413 PSA EQ 3.83 NG/ML 1 Unknown VCA AB G/M [id number] EBV G VCA 3.34 12/03/2010 Unknown VCA AB G/M 7677252 EBV M VCA 0.12 12/03/2010 Unknown EB GARY AG [id number] EB GARY AG 0.47 12/03/2010 Unknown EB NUCL AB [id number] EB NUCL AB 3.72 12/03/2010 Unknown COMPLETE BLOOD COUNT 32936 WBC 8.0 10e9/L 12/03/19 11 Unknown COMPLETE BLOOD COUNT 93813 RBC 4.93 10e12/L 2010 Unknown COMPLETE BLOOD COUNT 96061 HGB 15.7 g/dL 1 Unknown COMPLETE BLOOD COUNT 34756 HCT DET 45.4 % 1 Unknown COMPLETE BLOOD COUNT 15619 MCV 92.1 fL 1 Unknown COMPLETE BLOOD COUNT 42060 MCH 31.8 pg 1 Unknown COMPLETE BLOOD COUNT 24326 MCHC 34.6 g/dL 1 Unknown COMPLETE BLOOD COUNT 34832 PLT 248 10e9/L 12/03/19 11 Unknown COMPLETE BLOOD COUNT 58876 MPV 10.4 fL 1 Unknown COMPLETE BLOOD COUNT 00379 VERONIQUE % 74.0 % 1 Unknown COMPLETE BLOOD COUNT 22005 LY % 19.6 % 1 Unknown COMPLETE BLOOD COUNT 72023 MON % 5.2 % 1 Unknown COMPLETE BLOOD COUNT 21380 EOS % 1.1 % 1 Unknown COMPLETE BLOOD COUNT 73319 BASO % 0.1 % 1 Unknown COMPLETE BLOOD COUNT 95139 RDW 12.5 % 1 Unknown COMPLETE BLOOD COUNT 29068 ABS VERONIQUE 5.92 10e9/L 011 Unknown COMPLETE BLOOD COUNT 32968 ABS LYMPH 1.57 10e9/L 011 Unknown COMPLETE BLOOD COUNT 12196 ABS MONO 0.42 10e9/L 011 Unknown COMPLETE BLOOD COUNT 51716 ABS EOS 0.09 10e9/L 011 Unknown COMPLETE BLOOD COUNT 00882 ABS BASO 0.01 10e9/L 011 Unknown COMPLETE BLOOD COUNT 37198 RDW-SD 41.1 fL 1 Unknown URIC ACID 30361 URIC ACID 9.3 MG/DL 12/02/2010 Unknown Procedures Procedure Codes Date DEXAMETHASONE SODIUM PHOS CPT-4: J1100 05/31/2019 THER/PROPH/DIAG INJ SC/IM CPT-4: 32468 05/31/2019 THER/PROPH/DIAG INJ SC/IM CPT-4: 96300 05/17/2019 TRIAMCINOLONE ACET INJ NOS CPT-4: J3301 05/17/2019 DRAINAGE OF SKIN ABSCESS CPT-4: 82106 01/23/2019 AEROBIC WOUND CULTURE & STN CPT-4: 10553 01/23/2019 ROUTINE VENIPUNCTURE CPT-4: 84996 03/29/2017 ASSAY THYROID STIM HORMONE CPT-4: 16280 03/29/2017 ASSAY OF FREE THYROXINE CPT-4: 19921 03/29/2017 COMPREHEN METABOLIC PANEL CPT-4: 88638 03/29/2017 COMPLETE CBC W/AUTO DIFF WBC CPT-4: 74936 03/29/2017 LIPID PANEL CPT-4: 18351 03/29/2017 ASSAY OF BLOOD/URIC ACID CPT-4: 43333 03/29/2017 RBC SED RATE AUTOMATED CPT-4: 60727 03/29/2017 ROUTINE VENIPUNCTURE CPT-4: 73313 03/15/2017 ACUTE HEPATITIS PANEL CPT-4: 10763 03/15/2017 HIV-1/HIV-2 1 RESULT ANTBDY CPT-4: 14707 03/15/2017 EXC TR-EXT B9+SHASHA 0.5 CM< CPT-4: 58874 03/15/2017 EXC TR-EXT B9+SHASHA 1.1-2 CM CPT-4: 63157 03/15/2017 URINALYSIS NONAUTO W/O SCOPE CPT-4: 59641 01/07/2015 URINE CULTURE/ COLONY COUNT CPT-4: 13408 01/07/2015 ROUTINE VENIPUNCTURE CPT-4: 47803 01/07/2015 ASSAY OF FREE THYROXINE CPT-4: 25023 01/07/2015 ASSAY THYROID STIM HORMONE CPT-4: 63167 01/07/2015 COMPREHEN METABOLIC PANEL CPT-4: 72992 01/07/2015 COMPLETE CBC W/AUTO DIFF WBC CPT-4: 95234 01/07/2015 LIPID PANEL CPT-4: 98900 01/07/2015 ASSAY OF PSA TOTAL CPT-4: 39703 01/07/2015 ASSAY OF BLOOD/URIC ACID CPT-4: 40571 01/07/2015 ROUTINE VENIPUNCTURE CPT-4: 99787 12/11/2013 ASSAY OF FREE THYROXINE CPT-4: 52141 12/11/2013 ASSAY THYROID STIM HORMONE CPT-4: 05630 12/11/2013 COMPREHEN METABOLIC PANEL CPT-4: 45080 12/11/2013 COMPLETE CBC W/AUTO DIFF WBC CPT-4: 25584 12/11/2013 LIPID PANEL CPT-4: 61734 12/11/2013 ASSAY OF BLOOD/URIC ACID CPT-4: 68905 12/11/2013 ASSAY OF PSA TOTAL CPT-4: 97407 12/11/2013 URINE CULTURE/ COLONY COUNT CPT-4: 57857 01/02/2013 AEROBIC WOUND CULTURE & STN CPT-4: 84109 10/10/2011 DRAINAGE OF SKIN ABSCESS CPT-4: 54256 10/10/2011 ASSAY OF CREATININE CPT-4: 77228 09/15/2011 ASSAY OF BLOOD/URIC ACID CPT-4: 97126 09/15/2011 ROUTINE VENIPUNCTURE CPT-4: 39348 07/28/2011 ANTINUCLEAR ANTIBODIES CPT-4: 16244 07/28/2011 RBC SED RATE AUTOMATED CPT-4: 21405 07/28/2011 ASSAY OF BLOOD/URIC ACID CPT-4: 84685 07/28/2011 COMPREHEN METABOLIC PANEL CPT-4: 03893 07/28/2011 C-REACTIVE PROTEIN CPT-4: 33502 07/28/2011 THYRO PERX CPT-4: 6596908 07/28/2011 DNA AB CPT-4: 9503236 07/28/2011 SJOGRENS CPT-4: 5213697 07/28/2011 ASSAY OF FREE THYROXINE CPT-4: 60565 07/28/2011 ASSAY THYROID STIM HORMONE CPT-4: 26925 07/28/2011 ROUTINE VENIPUNCTURE CPT-4: 32909 05/25/2011 COMPREHEN METABOLIC PANEL CPT-4: 84020 05/25/2011 COMPLETE CBC W/AUTO DIFF WBC CPT-4: 37866 05/25/2011 ANTINUCLEAR ANTIBODIES CPT-4: 90750 05/25/2011 RHEUMATOID FACTOR QUANT CPT-4: 23623 05/25/2011 ASSAY OF PSA TOTAL CPT-4: 26544 05/25/2011 ASSAY OF BLOOD/URIC ACID CPT-4: 86562 05/25/2011 LIPID PANEL CPT-4: 85595 05/25/2011 ROUTINE VENIPUNCTURE CPT-4: 93434 02/01/2011 ASSAY OF FREE THYROXINE CPT-4: 52933 02/01/2011 ASSAY THYROID STIM HORMONE CPT-4: 57041 02/01/2011 COMPREHEN METABOLIC PANEL CPT-4: 48281 02/01/2011 COMPLETE CBC W/AUTO DIFF WBC CPT-4: 18744 02/01/2011 LIPID PANEL CPT-4: 96867 02/01/2011 ASSAY OF PSA TOTAL CPT-4: 23369 02/01/2011 ROUTINE VENIPUNCTURE CPT-4: 89863 12/02/2010 ASSAY OF BLOOD/URIC ACID CPT-4: 31749 12/02/2010 EB VIRUS VCA G/M + EBNA + EA CPT-4: 65776|86384 x 2|31880 COMPLETE CBC W/AUTO DIFF WBC CPT-4: 73089 12/02/2010 COMPREHEN METABOLIC PANEL CPT-4: 24481 09/14/2009 ASSAY OF BLOOD/URIC ACID CPT-4: 92483 09/14/2009 ROUTINE VENIPUNCTURE CPT-4: 19016 09/14/2009 URINALYSIS NONAUTO W/O SCOPE CPT-4: 31884 09/01/2009 Vital Signs Date Vital 05/31/2019 Blood Pressure 1: 127/80 Code: 8480-6 [...] 1: 118/64 Code: 8480-6 BMI: 29.7 Code: 23786-1 Heart Rate 1: 100 bpm Height: 5'6" Respiratory Rate: 22 bpm SpO2: 95% Tempera ture: 36.7 (C) / 98.0 (F) Weight: 187 lbs 02/27/2017 Blood Pressure 1: 132/76 Code: 8480-6 BMI: 30.8 Code: 89286-0 Heart Rate 1: 96 bpm Height: 5'6" Respiratory Rate: 22 bpm SpO2: 98% Tempera ture: 36.6 (C) / 97.8 (F) Weight: 194 lbs 03/31/2015 Blood Pressure 1: 128/90 Code: 8480-6 Heart Rate 1: 88 bpm Respiratory Rate: 20 bpm Temperature: 36.9 (C) / 98.4 (F) Weight: 192 lbs 01/07/2015 Blood Pressure 1: 132/80 Code: 8480-6 BMI: 30.2 Code: 74738-1 Heart Rate 1: 78 bpm Height: 5'6" Respiratory Rate: 22 bpm Temperature: 36 .7 (C) / 98.1 (F) Weight: 190 lbs 04/15/2014 Blood Pressure 1: 136/88 Code: 8480-6 BMI: 31.0 Code: 05788-3 Heart Rate 1: 84 bpm Height: 5'6" Respiratory Rate: 20 bpm Temperature: 36 .1 (C) / 97.0 (F) Weight: 192 lbs 12/10/2013 Blood Pressure 1: 142/90 Code: 8480-6 BMI: 29.1 Code: 36796-7 Heart Rate 1: 72 bpm Height: 5'7" Respiratory Rate: 20 bpm Temperature: 36 .6 (C) / 97.8 (F) Weight: 186 lbs 05/02/2013 Blood Pressure 1: 146/96 Code: 8480-6 BMI: 30.5 Code: 82903-0 Heart Rate 1: 88 bpm Height: 5'7" Respiratory Rate: 20 bpm Temperature: 37 .0 (C) / 98.6 (F) Weight: 195 lbs 01/02/2013 Blood Pressure 1: 132/84 Code: 8480-6 BMI: 30.2 Code: 93376-8 Heart Rate 1: 80 bpm Height: 5'7" Respiratory Rate: 20 bpm Temperature: 36 .9 (C) / 98.4 (F) Weight: 193 lbs 10/10/2011 Blood Pressure 1: 122/68 Code: 8480-6 BMI: 35.7 Code: 74106-1 Heart Rate 1: 84 bpm Height: 5'2" Temperature: 36.9 (C) / 98.5 (F) Weight: 195 lbs 08/12/2011 Blood Pressure 1: 110/80 Code: 8480-6 BMI: 36.9 Code: 48088-9 Heart Rate 1: 80 bpm Height: 5'2" Temperature: 36.4 (C) / 97.6 (F) Weight: 202 lbs 08/04/2011 Blood Pressure 1: 126/80 Code: 8480-6 BMI: 37.9 Code: 15844-5 Heart Rate 1: 76 bpm Height: 5'2" Respiratory Rate: 20 bpm Temperature: 37 .0 (C) / 98.6 (F) Weight: 207 lbs 05/24/2011 Blood Pressure 1: 122/82 Code: 8480-6 BMI: 37.7 Code: 23617-4 Heart Rate 1: 68 bpm Height: 5'2" Temperature: 36.7 (C) / 98.1 (F) Weight: 206 lbs 04/15/2011 Blood Pressure 1: 128/82 Code: 8480-6 BMI: 37.1 Code: 08172-3 Heart Rate 1: 68 bpm Height: 5'2" [...] 1: 106/62 Code: 8480-6 BMI: 36.8 Code: 88689-3 Heart Rate 1: 90 bpm Height: 5'2" SpO2: 94% Temperature: 36.4 (C) / 97.6 (F) Weight: 201 lbs 12/02/2010 Blood Pressure 1: 142/90 Code: 8480-6 BMI: 36.8 Code: 08603-0 Heart Rate 1: 96 bpm Height: 5'2" [...] Visit Reason For Visit Effective Dates Notes rash 05/31/2019 rash 05/17/2019 follow up 01/25/2019 [...] success Encounters Encounter Performer Location Codes Date ([id number]) OFFICE/OUTPATIENT VISIT EST Diagnosis: Acute contact dermatitis[ICD10: L25.9] [place]E [place] [employer] CPT-4: 46574 05/31/2019 ([id number]) OFFICE/OUTPATIENT VISIT EST Diagnosis: Acute contact dermatitis[ICD10: L25.9] Diagnosis: Acute sinusitis[ICD10: J01.90] Sylvie SAINZ [place] [employer] CPT-4: 37396 05/17/2019 ([id number]) OFFICE/OUTPATIENT VISIT EST Diagnosis: Acute gastritis without bleeding[ICD10: K29.00] Diagnosis: Essential (primary) hypertension[ICD10: I10] Diagnosis: Hyperlipidemia, unspecified[ICD10: E78.5] Azra Bradley Yajaira JOEY [employer] CPT-4: 41368 10/31/2018 ([id number]) OFFICE/OUTPATIENT VISIT EST Diagnosis: Acute gastritis without bleeding[ICD10: K29.00] Azra SAINZ [employer] CPT-4: 47974 01/18/2018 ([id number]) OFFICE/OUTPATIENT VISIT EST Diagnosis: Hyperlipidemia, unspecified[ICD10: E78.5] Diagnosis: Essential (primary) hypertension[ICD10: I10] Diagnosis: Weakness[ICD10: R53.1] Diagnosis: Sebaceous cyst[ICD10: L72.3] Diagnosis: Idiopathic gout, unspecified site[ICD10: M10.00] Sylvie SAINZ [place] [employer] CPT-4: 43705 03/29/2017 OFFICE/OUTPATIENT VISIT EST Diagnosis: Pain in right knee[ICD10: M25.561] Azra Bradley MARTHA HOSKINS [employer] CPT-4: 13773 03/13/2017 OFFICE/OUTPATIENT VISIT EST Diagnosis: Pain in right leg[ICD10: M79.604] Diagnosis: Sebaceous cyst[ICD10: L72.3] Azra BYRNE [employer] [facility] CPT-4: 28226 02/27/2017 OFFICE/OUTPATIENT VISIT EST Diagnosis: Local infection of the skin and subcutaneous tissue, unspecified[ICD10: L08.9] Diagnosis: Essential (primary) hypertension[ICD10: I10] Diagnosis: Hyperlipidemia, unspecified[ICD10: E78.5] Dagmar COBB [employer] [facility] CPT-4: 61418 03/31/2015 ([id number]) PREV VISIT EST AGE 40-64 Diagnosis: History of chest pain[ICD9: V13.89] Diagnosis: Right flank pain[ICD9: 789.09] Diagnosis: ROUTINE MEDICAL EXAM[ICD9: V70.0] Diagnosis: HYPERTENSION[ICD9: 401.9] Diagnosis: HYPERLIPIDEMIA NEC/NOS[ICD9: 272.4] Diagnosis: Colon polyps[ICD9: 211.3] Diagnosis: HEMATURIA NOS[ICD9: 599.70] Dagmar BYRNE [employer] [facility] CPT-4: 50183 01/07/2015 OFFICE/OUTPATIENT VISIT EST Diagnosis: COUGH[ICD9: 786.2] Diagnosis: Rectal itching[ICD9: 698.0] Dagmar BYRNE [employer] [facility] CPT-4: 36158 04/15/2014 ([id number]) OFFICE/OUTPATIENT VISIT EST Diagnosis: ROUTINE MEDICAL EXAM[ICD9: V70.0] Diagnosis: GOUT[ICD9: 274.9] Diagnosis: HYPERLIPIDEMIA NEC/NOS[ICD9: 272.4] Diagnosis: HYPERTENSION[ICD9: 401.9] Sylvie ISAAC [employer] [facility] CPT-4: 45163 12/11/2013 ([id number]) OFFICE/OUTPATIENT VISIT EST Diagnosis: Shingles[ICD9: 053.9] Sylvie CBOB [employer] [facility] CPT-4: 42391 12/10/2013 ([id number]) OFFICE/OUTPATIENT VISIT EST Diagnosis: HYPERTENSION[ICD9: 401.9] Diagnosis: Colon polyps[ICD9: 211.3] Diagnosis: Stress reaction[ICD9: 308.9] Sylvie BYRNE [facility] CPT-4: 32581 05/02/2013 ([id number]) OFFICE/OUTPATIENT VISIT EST Diagnosis: URINARY TRACT INFECTION[ICD9: 599.0] Sylvie BYRNE [facility] CPT-4: 05065 01/02/2013 OFFICE/OUTPATIENT VISIT EST Diagnosis: CELLULITIS OF TRUNK[ICD9: 682.2] Diagnosis: SPRAIN SHOULDER/ARM[ICD9: 840.9] Liza Jn SYLVIE BYRNE [facility] CPT-4: 80235 10/10/2011 ([id number]) OFFICE/OUTPATIENT VISIT EST Diagnosis: GOUT[ICD9: 274.9] Sylvie BYRNE [facility] CPT-4: 09169 09/15/2011 OFFICE/OUTPATIENT VISIT EST Diagnosis: DIARRHEA[ICD9: 787.91] Sylvie BORJA Gurjit [facility] CPT-4: 33227 08/12/2011 ([id number]) OFFICE/OUTPATIENT VISIT EST Diagnosis: GOUT[ICD9: 274.9] Diagnosis: Positive WENDI (antinuclear antibody)[ICD9: 795.79] Sylvie BYRNE [facility] CPT-4: 18075 08/04/2011 OFFICE/OUTPATIENT VISIT EST Diagnosis: Rash[ICD9: 782.1] Diagnosis: Joint pain[ICD9: 719.40] Diagnosis: Hyperlipidemia[ICD9: 272.4] Sylvie WILSONLINE Alan Kulkarni LAVELL [facility] CPT-4: 35370 05/24/2011 OFFICE/OUTPATIENT VISIT EST Diagnosis: PHARYNGITIS, ACUTE[ICD9: 462] Diagnosis: COUGH[ICD9: 786.2] Diagnosis: SINUSITIS, ACUTE[ICD9: 461.9] Sylvie ChapaFrancisco AGAPITO [facility] CPT-4: 51105 04/15/2011 OFFICE/OUTPATIENT VISIT EST Diagnosis: Clavicle fracture[ICD9: 810.00] Sylvie ChapaFrancisco AGAPITO [facility] CPT-4: 65301 01/13/2011 OFFICE/OUTPATIENT VISIT EST Diagnosis: Clavicle pain[ICD9: 719.41] Sylvie MONTE DO [facility] CPT-4: 84597 12/23/2010 OFFICE/OUTPATIENT VISIT EST Diagnosis: Arm pain[ICD9: 729.5] Diagnosis: SPASM OF MUSCLE[ICD9: 728.85] Diagnosis: Neck pain[ICD9: 723.1] Sylvie Cagle [facility] CPT-4: 47167 12/15/2010 OFFICE/OUTPATIENT VISIT EST Diagnosis: HYPERTENSION[ICD9: 401.9] Diagnosis: PHARYNGITIS, ACUTE[ICD9: 462] Diagnosis: MALAISE AND FATIGUE[ICD9: 780.79] Diagnosis: GOUT[ICD9: 274.9] Sylvie BYRNE DO [facility] CPT-4: 18883 12/02/2010 ([id number]) OFFICE/OUTPATIENT VISIT, EST Sylvie BYRNE DO [facility] CPT-4: 06885 04/19/2010 ([id number]) OFFICE/OUTPATIENT VISIT, EST Sylvie BYRNE DO [facility] CPT-4: 53675 04/14/2010 ([id number]) OFFICE/OUTPATIENT VISIT, EST Sylvie BYRNE DO [facility] CPT-4: 96655 09/01/2009 Plan of Care Planned Activity Notes Codes Status Date Visit Diagnosis Plan: Acute contact dermatitis Discuss ion: skin scrape obtained due to recurrent issue. 4 mg dexamethasone given in office. prednisone prescribed to take as directed. instructed to change laundry detergent back to original and wash a week's worth of clothes in other detergent to see if problem improves. ICD-9 : 692.9 ICD-10 : L25.9 05/31/2019 Appointment: Azra Bradley [address] [place], [place] [phone] ACUTE ILLNESS 05/31/2019 Patient Education: prednisone- [employer] Coupon [phone] [email or web address]/samplemd/resources/getResource/61/[email or web address] Completed 05/31/2019 Visit Diagnosis Plan: Acute contact dermatitis Discuss ion: Kenalog 40mg IM now Cover with [employer] Call in 1week on how doing Medrol Dose Pack ICD-9 : 692.9 ICD-10 : L25.9 05/17/2019 Appointment: Sylvie Byrne WPtel[facility] [phone] [facility] [facility] 05/17/2019 Patient Education: Medrol (Nicholas)- [employer] Coupon [phone] https://www.[employer]/samplemd/resources/getResource/61/[email or web address] Completed 05/17/2019 Visit Diagnosis Plan: Abscess of chest wall Discussion : patient has large amount of induration still noted despite recent drainage and antibiotics. dr. najera's office was called and they were able to see patient today. patient was sent over there for possible surgery. ICD-9 : 682.2 ICD-10 : L02.213 01/25/2019 Appointment: Azra Bradley [address] [place], [place] [phone] FOLLOW UP 01/25/2019 Visit Diagnosis Plan: Abscess [...] ICD-10 : L02.213 01/23/2019 Appointment: Azra Bradley [address] [place], [place] [id number] Patient called 01/21/19 to confimr 01/23 appt OF FICE SURGERY 01/23/2019 Patient Education: clindamycin HCl- [employer] Coupon [id number] https://[email or web address]/samplemd/resources/getResource/61/[email or web address] Completed 01/23/2019 Appointment: Azra Bradley [address] [place], [place] [phone] US CANCELED 01/16/2019 Visit Diagnosis Plan: Acute [...] ICD-10 : E78.5 10/31/2018 Appointment: Azra Bradley [address] ACUTE ILLNESS 10/31/2018 Patient Education: High Blood [...] ICD-10 : K29.00 01/18/2018 Appointment: Azra Bradley [address] ACUTE ILLNESS 01/18/2018 Patient Education: Patient Medication Summary Completed 01/18/2018 Appointment: Sylvie Byrne WPtel[facility] [phone] [facility] [facility] 03/29/2017 Patient Education: Patient Medication [...] ICD-10 : L72.3 03/15/2017 Appointment: Azra Bradley [facility] OFFICE SURGERY 03/15/2017 Patient Education: Patient Medication [...] ICD-10 : M25.561 03/13/2017 Appointment: Azra Bradley [address] [place], [place] [phone] ACUTE ILLNESS 03/13/2017 Patient Education: Patient Medication Summary Completed 03/13/2017 Care Plan: X-RAY EXAM OF KNEE 1 OR 2 ATUL [place] : 71144-7 Pending 03/13/2017 Visit Diagnosis Plan: Sebaceous cyst [...] ICD-10 : M79.604 02/27/2017 Appointment: Azra Bradley [address] [place], [place] [phone] ACUTE ILLNESS 02/27/2017 Patient Education: Patient Medication Summary Completed 02/27/2017 Appointment: Katerina Sousa WPtel: [address] [place], [place] [phone] ACUTE ILLNESS 08/21/2015 Visit Plan: Has been [...] back. 03/31/2015 Appointment: Dagmar Ahmadi WPtel: [phone] [facility] 03/30 Confirmed ~sl FOLLOW UP 03/31/2015 Patient Education: Patient Medication Summary Completed 03/31/2015 Visit Plan: CBC, CMP, TSH, Free T4, Lipi d Panel, Uric Acid, PSA, EKG Urine culture today Increase fluids to >120cc's daily. Notify if flank pain increases. Resume Lisinopril 20 mg PO daily Resume Allopurinol 100 mg Ciprofloxacin 500 mg PO bid Scheudule appt. for follow-up Colonscopy - [place] 01/07/2015 Appointment: Dagmar Ahmadi WPtel: [address] [place], [place] [phone] 01/06 appointment confirmed cn Annual Well Visit 01/07/2015 Patient Education: Patient Medication Summary Completed 01/07/2015 Patient Education: [facility] - Saving [employer] - Lisinopril - 18-64 - Dynamic Portal ID Completed 01/07/2015 Appointment: Sylvie Byrne WPtel: [address] [place] [address] ACUTE ILLNESS 08/26/2014 Appointment: Dagmar Ahmdai WPtel: [address] [place] [address] ACUTE ILLNESS 04/15/2014 Patient Education: Patient Medication Summary Completed 04/15/2014 Appointment: Sylvie Byrne WPtel: [address] [place], [place] [phone] US LAB 12/11/2013 Patient Education: Patient Medication Summary Completed 12/11/2013 Visit Plan: Check CBC, CMP, TSH, Free T4 , Lipids, uric acid, PSA--pt will return in AM for fasting lab Finish acyclovir Discussed Zostavax down road 12/10/2013 Appointment: Sylvie Byrne WPtel: [address] [place], [place] [address] 12/06 left message FOLLOW UP 12/10/2013 Patient Education: Patient Medication Summary Completed 12/10/2013 Visit Plan: Lisinopril 20mg daily Stress Reducers and trial of fluoxetine 10mg q am Proceed with colonoscopy Check fasting lab 05/02/2013 Appointment: Sylvie Byrne WPtel: [address] [place], [place] [phone] ACUTE ILLNESS 05/02/2013 Patient Education: Patient Medication Summary Completed 05/02/2013 Appointment: Sylvie Byrne WPtel: [address] [place] [address] ACUTE ILLNESS 01/02/2013 Patient Education: Patient Medication Summary Completed 01/02/2013 Appointment: Liza Ragsdale WPtel: [address] [place], [place] [phone] ACUTE ILLNESS 10/10/2011 Patient Education: Patient Medication Summary Completed 10/10/2011 Appointment: Sylvie Byrne WPtel: [address] [place], [place] [phone] US LAB 09/15/2011 Patient Education: Patient Medication [...] Will seek re-eval if symptoms worsen or 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 08/12/2011 Appointment: Liza Ragsdale WPtel: [address] [place] [address] ACUTE ILLNESS 08/12/2011 Patient Education: Patient Medication Summary Completed 08/12/2011 Visit Plan: Continue increased dose of a llopurinol and daily colcrys Recheck thyroid lab, uric acid and PSA in 3mos Will hold on NSAID at this time due to history of GERD 08/04/2011 Appointment: Sylvie Byrne WPtel: [address] [place] [address] FOLLOW UP 08/04/2011 Patient Education: Patient Medication Summary Completed 08/04/2011 Appointment: Sylvie Byrne WPtel: [address] [place], [place] [phone] US LAB 07/28/2011 Patient Education: Patient Medication Summary Completed 07/28/2011 Appointment: Sylvie Byrne WPtel: [address] [place], [place] [phone] US LAB 05/25/2011 Patient Education: Patient Medication [...] at night. 05/24/2011 Appointment: Liza Ragsdale WPtel: [address] [place] [address] ACUTE ILLNESS 05/24/2011 Patient Education: Patient Medication Summary Completed 05/24/2011 Visit Plan: codeine/guif cough syrup and cefdinir are phoned to [facility]. Discussed fluids and rest. Pt. will notify if symptoms persist or worsen. 04/15/2011 Appointment: Liza Ragsdale WPtel: [address] [place], [place] [phone] ACUTE ILLNESS 04/15/2011 Patient Education: Patient Medication Summary Completed 04/15/2011 Appointment: Sylvie Byrne WPtel: [address] [place], [place] [phone] US LAB 02/01/2011 Patient Education: Patient Medication Summary Completed 02/01/2011 Visit Plan: Repeat clavicle x-ray in 6wk s Check bone density 01/13/2011 Appointment: Sylvie Byrne WPtel: [address] [place], [place] [phone] FOLLOW UP 01/13/2011 Patient Education: Patient Medication Summary Completed 01/13/2011 Visit Plan: Check right clavicle and alda ulder x-ray Continue Vimovo and flexeril 12/23/2010 Appointment: Sylvie Byrne WPtel: [address] [place] [address] FOLLOW UP 12/23/2010 Patient Education: Patient Medication Summary Completed 12/23/2010 Appointment: Sylvie Byrne WPtel: [address] [place] [address] ER Follow UP 12/15/2010 Patient Education: Patient [...] BP check. 12/02/2010 Appointment: Liza Ragsdale WPtel: [address] [place] [address] ACUTE ILLNESS 12/02/2010 Patient Education: Patient Medication Summary Completed 12/02/2010 Care Plan: ASSAY OF BLOOD/URIC ACID Pendi ng 12/02/2010 Care Plan: VCA AB G/M Pending 2010 Care Plan: EB GARY AG Pending 2010 Care Plan: EB NUCL AB Pending 2010 Appointment: Sylvie Byrne WPtel: [address] [place], [place] [phone] [place] FOLLOW UP 11/18/2010 Visit Plan: benadryl 25 mg tab QHS. 12.5 mg tab every 8 hrs during the day. Pt. will notify if symptoms worsen. No facial edema present. 04/19/2010 Appointment: Liza Ragsdale WPtel: [address] [place], [place] [phone] FOLLOW UP 04/19/2010 Patient Education: Patient Medication [...] no improvement. 04/14/2010 Appointment: Liza Ragsdale WPtel: [address] [place] [address] ACUTE ILLNESS 04/14/2010 Patient Education: Patient Medication Summary Completed 04/14/2010 Appointment: Liza Ragsdale WPtel: [address] [place] [place] [id number] ACUTE ILLNESS 03/12/2010 Appointment: Sylvie Byrne WPtel: [address] [place] [address] LAB 09/14/2009 Patient Education: Patient Medication Summary Completed 09/14/2009 Appointment: Sylvie Byrne WPtel: [address] [place] [address] ACUTE ILLNESS 09/01/2009 Patient Education: Patient Medication [...] 100 mg Ciprofloxacin 500 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 . Continue increased dose of [...] [facility] D[facility]ed fluids and rest. Pt. will notify [...]
--- OUTSIDE RECORDS SUMMARY | 2019-10-17 10:32 | XMS REPORT | CCD ---
Author Author Renan Byrne D.O. Organization [facility] Address [address] [place] [address] Phone Care Team Providers Care Inspector Barrel Name Role Phone Sylvie Byrne D.O., PP Unavailable CCM Unavailable Summary Purpose Interface Exchange Insurance Providers Payer name Policy type / Coverage type Covered green party ID Effective Begin Date Effective End Date WPS MEDICARE PART B [place] Medicare Part B [id number] Unknown [facility] Medicare Part B [id number] Unknown Family History Family History data not found Social History Social History Element Codes Description Effective Dates Tobacco history SNOMED CT: 557738156 Nonsmoker 12/02/2010 Allergies, Adverse Reactions, Alerts Substance [...] Instructions hydroxyzine HCl 25 mg tablet RxNorm: 666672 1 Tablet(s) Oral Q8 H as needed 06/14/2019 06/14/2019 Inactive Cipro 500 mg tablet RxNorm: 208088 1 Tablet(s) Oral two times a day 06/14/2019 06/19/2019 Inactive Cipro 500 mg tablet RxNorm: 742426 1 Tablet(s) Oral two times a day 06/14/2019 06/13/2019 Inactive hydroxyzine HCl 25 mg tablet RxNorm: 250245 1 Tablet(s) Oral Q8 H as needed 06/14/2019 06/13/2019 Inactive prednisone 20 mg tablet RxNorm: 648917 1 Tablet(s) Oral two latonia es a day 05/31/2019 06/05/2019 Inactive Elimite 5 % topical cream RxNorm: 451064 Application To pical QPM from head to toe 05/17/2019 07/16/2019 Active Medrol (Nicholas) 4 mg tablets in a dose pack RxNorm: 521748 6 Tablet(s) Oral QD --then as directed 05/17/2019 05/23/2019 Inactive Osteo Bi-Flex 250 mg-200 mg tablet RxNorm: 211853 2 Tablet(s) O ral QD 01/23/2019 No Stop Date Active clindamycin HCl 300 mg capsule RxNorm: 302769 2 Capsule (s) Oral three times a day 01/23/2019 01/30/2019 Inactive Flagyl 500 mg tablet RxNorm: 842121 1 Tablet(s) PO BID 10/31/2018 Inactive lisinopril 20 mg tablet RxNorm: 527942 1 Tablet(s) PO QD for bl ood pressure 09/13/2018 12/11/2018 Inactive allopurinol 100 mg tablet RxNorm: 826507 1 Tablet(s) PO QD 09/14/19 19 12/11/2018 Inactive Flagyl 500 mg tablet RxNorm: 907058 1 Tablet(s) PO BID 01/18/2018 Inactive Cipro 250 mg tablet RxNorm: 829738 1 Tablet(s) PO BID 01/18/201801/08 Inactive lisinopril 20 mg tablet RxNorm: 909140 1 Tablet(s) PO QD for bl ood pressure 11/06/2017 02/03/2018 Inactive allopurinol 100 mg tablet RxNorm: 186270 1 Tablet(s) PO QD 11/07/19 18 02/03/2018 Inactive allopurinol 100 mg tablet RxNorm: 238165 1 Tablet(s) PO QD 04/11/19 18 10/07/2017 Inactive lisinopril 20 mg tablet RxNorm: 378523 1 Tablet(s) PO QD for bl ood pressure 04/07/2017 11/05/2017 Inactive prednisone 20 mg tablet RxNorm: 392399 2 Tablet(s) PO QD 03/15/2017 1 05/18/2016 Inactive tramadol 50 mg tablet RxNorm: 715636 1-2 Tablet(s) PO TID as needed 03/13/2017 08/06/2017 Inactive Medrol (Nicholas) 4 mg tablets in a dose pack RxNorm: 639346 Tablet(s) PO As Directed 02/28/2017 08/01/2017 Inactive allopurinol 100 mg tablet RxNorm: 189732 1 Tablet(s) PO QD 04/11/19 17 04/11/2017 Inactive lisinopril 20 mg tablet RxNorm: 990456 1 Tablet(s) PO QD for bl ood pressure 04/11/2016 04/07/2017 Inactive pravastatin 20 mg tablet RxNorm: 223957 1 Tablet(s) PO QD 01/13/2016 02/26/2017 Inactive pravastatin 20 mg tablet RxNorm: 406940 TAKE 1 TABLET DAILY 016 01/13/2016 Inactive pravastatin 40 mg tablet RxNorm: 082020 1 Tablet(s) PO QD 03/31/2015 03/31/2015 Inactive pravastatin 20 mg tablet RxNorm: 381156 1 Tablet(s) PO QD 03/31/2015 06/28/2015 Inactive doxycycline hyclate 100 mg capsule RxNorm: 4122867 1 Capsule(s) PO BID 03/31/2015 04/09/2015 Inactive mupirocin 2 % topical ointment RxNorm: 545623 Apply TOP BID to affected lesions 03/31/2015 08/01/2017 Inactive pravastatin 40 mg tablet RxNorm: 089804 1 Tablet(s) PO QD 01/08/2015 03/30/2015 Inactive lisinopril 20 mg tablet RxNorm: 189860 1 Tablet(s) PO QD for bl ood pressure 01/07/2015 12/31/2015 Inactive allopurinol 100 mg tablet RxNorm: 098392 1 Tablet(s) PO QD 01/08/20 15 04/10/2016 Inactive ciprofloxacin 500 mg tablet RxNorm: 039866 1 Tablet(s) PO BID 01/0701/13/2015 Inactive doxycycline hyclate 100 mg capsule RxNorm: 5375449 1 Capsule(s) PO BID 04/15/2014 04/24/2014 Inactive fluoxetine 10 mg capsule RxNorm: 188610 1 Capsule(s) PO QAM 014 04/14/2014 Inactive lisinopril 20 mg tablet RxNorm: 023514 1 Tablet(s) PO QD for bl ood pressure 05/02/2013 04/26/2014 Inactive Cipro 500 mg tablet RxNorm: 627937 1 Tablet(s) PO BID 01/02/201312/10 Inactive Cipro 500 mg tablet RxNorm: 072654 1 Tablet(s) PO BID 01/02/201304/2012 Inactive doxycycline hyclate 100 mg Cap RxNorm: 817587 1 Capsule(s) PO BID 0 10/10/2011 10/19/2011 Inactive Culturelle 10 billion cell Cap RxNorm: 329364 1 Capsule(s) PO BID 0 08/12/2011 09/10/2011 Inactive Colcrys 0.6 mg Tab RxNorm: 988266 1 Tablet(s) PO BID 08/04/201111/30 Inactive allopurinol 100 mg Tab RxNorm: 568902 1 Tablet(s) PO BID 07/13/2011 0 08/03/2011 Inactive clotrimazole-betamethasone 1 %-0.05 % Topical Cream RxNorm: 572902 1 Application TOP BID 06/10/2011 06/23/2011 Inactive clotrimazole-betamethasone 1 %-0.05 % Topical Cream RxNorm: 095778 1 Application TOP BID 05/24/2011 06/06/2011 Inactive Colcrys 0.6 mg Tab RxNorm: 166422 1 Tablet(s) PO BID 05/24/201108/02 Inactive cefdinir 300 mg Cap RxNorm: 344821 1 Capsule(s) PO BID 04/15/2011 Inactive Daypro 600 mg Tab RxNorm: 893134 1 Tablet(s) PO BID 12/15/20102010 Inactive for pain Medrol (Nicholas) 4 mg Tabs in a Dose Pack RxNorm: 901608 Tablet(s) PO 0 12/09/2010 12/15/2010 Inactive as directed Colcrys 0.6 mg Tab RxNorm: 319736 1 Tablet(s) PO BID 12/06/201001/04 Inactive lisinopril-hydrochlorothiazide 20 mg-12.5 mg Tab RxNorm: 197 886 1 Tablet(s) PO QAM 12/02/2010 01/30/2011 Inactive ranitidine 150 mg tablet RxNorm: 7984371 1 Tablet(s) PO BID Pt will phone before filing this script. 04/14/2010 05/13/2010 Inactive allopurinol 100 mg Tab RxNorm: 476734 1 Tablet(s) PO BID 09/16/2009 0 11/14/2009 Inactive lisinopril-hydrochlorothiazide 20 mg-12.5 mg Tab RxNorm: 197 886 1 Tablet(s) PO QAM 06/23/2009 08/31/2009 Inactive ibuprofen 200 mg tablet RxNorm: 787445 4 Tablet(s) PO QAM No Start Da te Active Zithromax Z-Nicholas 250 mg Tab RxNorm: 612508 Tablet(s) PO as direc tenzin No Start Date 01/12/2011 Inactive Ultram Oral RxNorm: Oral No Start Date 01/01/2013 Inactive allopurinol 100 mg tablet RxNorm: 958799 1 Tablet(s) PO QD No Start Date 01/06/2015 Inactive pravastatin 40 mg tablet RxNorm: 619347 1 Tablet(s) PO QD No Start Date 01/07/2015 Inactive Naprosyn 500 mg tablet RxNorm: 524115 1 Tablet(s) PO BID No Start D ate 05/01/2013 Inactive azithromycin 250 mg tablet RxNorm: 573672 2 Tablet(s) P O QD take 2 tablets (500 mg) by oral route once daily for 1 day then 1 tablet (250 mg) by oral route once daily for 4 days No Start Date 01/12/2011 Inactive allopurinol 300 mg Tab RxNorm: 676610 1 Tablet(s) PO QD No Start Da te 01/01/2013 Inactive Colcrys 0.6 mg tablet RxNorm: 807737 1 Tablet(s) PO BID No Start Da te 05/01/2013 Inactive Medrol (Nicholas) 4 mg tablets in a dose pack RxNorm: 380322 Tablet(s) PO As Directed No Start Date 02/27/2017 Inactive hydrocodone 5 mg-acetaminophen 325 mg tablet RxNorm: 894499 1 Tablet(s) PO Q4H as needed for pain No Start Date 12/09/2013 Inactive ranitidine 150 mg Tab RxNorm: 2516947 1 Tablet(s) PO BID No Start D ate 04/13/2010 Inactive Allopurinol 100 mg Tab RxNorm: 893272 1 Tablet(s) PO BID No Start D ate 09/15/2009 Inactive coenzyme Q10 200 mg capsule RxNorm: 412654 1 Capsule(s) PO QD No St art Date 03/30/2015 Inactive Mobic 7.5 mg tablet RxNorm: 814152 1 Tablet(s) PO QD No Start Date Inactive Osteo Bi-Flex (5-Loxin) 1,500 mg-400 unit-100 mg tablet RxNo rm: 1 Tablet(s) PO BID No Start Date 03/30/2015 Inactive hydrocodone-acetaminophen 7.5 mg-325 mg Tab RxNorm: 000814 1-2 Tablet(s) PO Q4-6H No Start Date 08/03/2011 Inactive as needed for pa in Neurontin 300 mg capsule RxNorm: 148034 1 Capsule(s) PO QD No Start Date 12/09/2013 Inactive Medrol (Nicholas) 4 mg Tabs in a Dose Pack RxNorm: 593895 Tablet(s) PO N o Start Date 12/08/2010 Inactive as directed Vitamin D2 1,000 unit capsule RxNorm: 954102 1 Capsule(s) PO QD No Start Date 03/30/2015 Inactive Flexeril 10 mg Tab RxNorm: 802393 1 Tablet(s) PO TID No Start Date Inactive for spasm Medication Administered No Medication Administered data Immunizations No Immunization data Results Observation Observation Code Item Item Code Result Date S ervice Location C DIFF MOL 7866042 C Diff Mol Int Negative 11/02/2018 Unk nown C Diff An [id number] C Diff Analyzer Indeterminate 9 Unknown GFR CALC 2904964 GFR Non Afr Amr >60 mL/min 11/01/2018 Un known GFR CALC 9247134 GFR Afr Amr >60 mL/min 11/01/[address] LDL 3195347 HDL CHOLESTEROL 46 mg/dL 11/01/[address] LDL 4240329 Cholesterol 198 mg/dL 11/01/[address] LDL Triglyceride 104 mg/dL 11/01/[address] LDL LDL Direct 158 mg/dL 11/01/[address] LDL 0768337 NON-HDL Chol 152 mg/dL 11/01/2018 Unkno wn THYROID STIMULATING HORMONE 20045 TSH 1.276 uIU/mL 11/01/2018 Unknown COMPREHENSIVE METABOLIC 70451 AST 22 U/L 2018 Unknown COMPREHENSIVE METABOLIC 46866 ALT 17 U/L 2018 Unknown COMPREHENSIVE METABOLIC 05055 BUN 16 mg/dL 2018 Unknown COMPREHENSIVE METABOLIC 99112 ALBUMIN 4.3 g/dL 2018 Unknown COMPREHENSIVE METABOLIC 66541 CHLORIDE 103 mmol/L 11/01 Unknown COMPREHENSIVE METABOLIC 00204 Bili Total 0.9 mg/dL 11/01 Unknown COMPREHENSIVE METABOLIC 89915 ALK PHOS 62 U/L 2018 Unknown COMPREHENSIVE METABOLIC 67994 SODIUM 138 mmol/L 11/01 Unknown COMPREHENSIVE METABOLIC 43133 CREATININE 0.87 mg/dL 10/09 Unknown COMPREHENSIVE METABOLIC 20988 CALCIUM 9.2 mg/dL 2018 Unknown COMPREHENSIVE METABOLIC 07991 POTASSIUM 4.1 mmol/L 11/01 Unknown COMPREHENSIVE METABOLIC 56101 Total Protein 7.2 g/dL Unknown COMPREHENSIVE METABOLIC 19922 Glucose 81 mg/dL 2018 Unknown COMPREHENSIVE METABOLIC 95613 Bicarbonate 18 mmol/L 10/09 Unknown COMPREHENSIVE METABOLIC 85753 AGAP 17 mmol/L 2018 Unknown COMPLETE BLOOD COUNT 1422585 WBC 8.8 10e9/L 11/02/19 19 Unknown COMPLETE BLOOD COUNT 6851641 RBC 4.54 10e12/L 2018 Unknown COMPLETE BLOOD COUNT 9640392 HEMOGLOBIN 14.4 g/dL 11/02/19 19 Unknown COMPLETE BLOOD COUNT 7636704 HEMATOCRIT 44.0 % 11/02/19 19 Unknown COMPLETE BLOOD COUNT 7229388 MCV 96.9 fL 9 Unknown COMPLETE BLOOD COUNT 6364773 MCH 31.7 pg 9 Unknown COMPLETE BLOOD COUNT 4755059 MCHC 32.7 g/dL 9 Unknown COMPLETE BLOOD COUNT 1738674 PLATELET COUNT 239 10e9/L Unknown COMPLETE BLOOD COUNT 4913295 Mean Plt Volume 10.5 fL Unknown COMPLETE BLOOD COUNT 2665119 NRBC Absolute 0.00 10e9/L Unknown COMPLETE BLOOD COUNT 5352404 Neut Auto 65.2 % 9 Unknown COMPLETE BLOOD COUNT 3873239 NRBC/100 WBC 0.0 2018 Unknown COMPLETE BLOOD COUNT 9519669 Lymph Auto 23.1 % 11/02/19 19 Unknown COMPLETE BLOOD COUNT 9784908 [place] Auto 9.5 % 9 Unknown COMPLETE BLOOD COUNT 3202712 RDW 12.2 % 9 Unknown COMPLETE BLOOD COUNT 0028393 Eos Auto 1.7 % 9 Unknown COMPLETE BLOOD COUNT 3875996 Baso Auto 0.3 % 9 Unknown COMPLETE BLOOD COUNT 2251779 Neutrophil Abs 5.73 10e9/L Unknown COMPLETE BLOOD COUNT 1947046 Imm Gran Auto 0.2 % 11/01 Unknown COMPLETE BLOOD COUNT 0038239 Lymphocyte Abs 2.03 10e9/L Unknown COMPLETE BLOOD COUNT 2529013 Monocyte Abs 0.84 10e9/L 10/09 Unknown COMPLETE BLOOD COUNT 5267456 Eosinophil Abs 0.15 10e9/L Unknown COMPLETE BLOOD COUNT 4307461 RDW-SD 43.4 fL 9 Unknown COMPLETE BLOOD COUNT [id number] Basophil Abs 0.03 10e9/L 10/09 Unknown COMPLETE BLOOD COUNT [id number] Imm Gran Abs 0.02 10e9/L 10/09 Unknown COMPREHENSIVE METABOLIC 56939 AST 17 U/L 2016 Unknown COMPREHENSIVE METABOLIC 01182 ALT 16 U/L 2016 Unknown COMPREHENSIVE METABOLIC 44327 BUN 15 mg/dL 2016 Unknown COMPREHENSIVE METABOLIC 03411 ALBUMIN 4.4 g/dL 2016 Unknown COMPREHENSIVE METABOLIC 53329 CHLORIDE 104 mmol/L 03/29 Unknown COMPREHENSIVE METABOLIC 18258 Bili Total 0.5 mg/dL 03/29 Unknown COMPREHENSIVE METABOLIC 65693 ALK PHOS 56 U/L 2016 Unknown COMPREHENSIVE METABOLIC 62405 SODIUM 139 mmol/L 03/29 Unknown COMPREHENSIVE METABOLIC 53558 CREATININE 0.88 mg/dL 03/11 Unknown COMPREHENSIVE METABOLIC 18020 CALCIUM 9.8 mg/dL 2016 Unknown COMPREHENSIVE METABOLIC 36862 POTASSIUM 4.2 mmol/L 03/29 Unknown COMPREHENSIVE METABOLIC 97410 Total Protein 6.8 g/dL Unknown COMPREHENSIVE METABOLIC 04115 Glucose 100 mg/dL 2016 Unknown COMPREHENSIVE METABOLIC 48949 Bicarbonate 30 mmol/L 03/11 Unknown COMPREHENSIVE METABOLIC 93813 AGAP 5 mmol/L 2016 Unknown THYROID STIMULATING HORMONE 20898 TSH 1.077 uIU/mL 03/29/2017 Unknown URIC ACID 30052 URIC ACID 5.2 mg/dL 03/29/2017 Unknown FREE T4 01216 T4 Free 1.04 ng/dL 03/29/2017 Unknown ERYTHROCYTE SEDIMENTATION RATE 34910 Sed Rate 21 mm/hr 03/29/2017 Unknown COMPLETE BLOOD COUNT 4027404 WBC 5.9 10e9/L 03/29/20 17 Unknown COMPLETE BLOOD COUNT 8628023 RBC 4.52 10e12/L 2016 Unknown COMPLETE BLOOD COUNT 7606392 HEMOGLOBIN 14.6 g/dL 03/29/20 17 Unknown COMPLETE BLOOD COUNT 6018136 HEMATOCRIT 44.7 % 03/29/20 17 Unknown COMPLETE BLOOD COUNT 9099915 MCV 98.9 fL 7 Unknown COMPLETE BLOOD COUNT 4157971 MCH 32.3 pg 7 Unknown COMPLETE BLOOD COUNT 5449689 MCHC 32.7 g/dL 7 Unknown COMPLETE BLOOD COUNT 6415248 PLATELET COUNT 262 10e9/L Unknown COMPLETE BLOOD COUNT 2647483 Mean Plt Volume 10.1 fL Unknown COMPLETE BLOOD COUNT 9717765 Neut Auto 44.2 % 7 Unknown COMPLETE BLOOD COUNT 3553817 Lymph Auto 41.5 % 03/29/20 17 Unknown COMPLETE BLOOD COUNT 9885157 [place] Auto 11.2 % 7 Unknown COMPLETE BLOOD COUNT 2329383 Eos Auto 2.6 % 7 Unknown COMPLETE BLOOD COUNT 5777343 RDW 12.3 % 7 Unknown COMPLETE BLOOD COUNT 0869367 Baso Auto 0.5 % 7 Unknown COMPLETE BLOOD COUNT 5690601 Neutrophil Abs 2.61 10e9/L Unknown COMPLETE BLOOD COUNT 7682496 Lymphocyte Abs 2.45 10e9/L Unknown COMPLETE BLOOD COUNT 0949124 Monocyte Abs 0.66 10e9/L 03/11 Unknown COMPLETE BLOOD COUNT 7811574 Eosinophil Abs 0.15 10e9/L Unknown COMPLETE BLOOD COUNT 3375075 RDW-SD 43.7 fL 201 7 Unknown COMPLETE BLOOD COUNT 4665910 Basophil Abs 0.03 10e9/L 03/11 Unknown LIPID GROUP 89564 Cholesterol 248 mg/dL 03/29/2017 Unkno wn LIPID GROUP 61401 Triglyceride 87 mg/dL 03/29/2017 Unkn own LIPID GROUP 27551 HDL CHOLESTEROL 49 mg/dL 03/29/2017 U nknown LIPID GROUP 35916 Chol/HDL Ratio 5.06 ratio 03/29/2017 U nknown LIPID GROUP 23049 NON-HDL Chol 199 mg/dL 03/29/2017 Unkn own LIP[facility] GROUP 32674 LDL Cholesterol 182 mg/dL 03/29/2017 U nknown GFR CALC 7180297 GFR Non Afr Amr >60 mL/min 03/29/2017 Un known GFR CALC 9830332 GFR Afr Amr >60 mL/min 03/29/2017 Unknow n HIV AG/AB 3012985 HIV Ag/Ab Non-Reactive 03/15/2017 Unkno wn VIRAL HEPATITIS PROFILE #2 30800 Hep A IgM Non-Reactive 03/15/2017 Unknown VIRAL HEPATITIS PROFILE #2 00250 Hep B Core IgM Non-Reac tive 03/15/2017 Unknown VIRAL HEPATITIS PROFILE #2 44830 Hepatitis C Ab Non-Reac tive 03/15/2017 Unknown VIRAL HEPATITIS PROFILE #2 29755 Hep Bs Ag Non-Reactive 03/15/2017 Unknown COMPREHENSIVE METABOLIC 16319 AST 23 U/L 2014 Unknown COMPREHENSIVE METABOLIC 95670 ALT 21 IU/L 2014 Unknown COMPREHENSIVE METABOLIC 57039 BUN 13 MG/DL 2014 Unknown COMPREHENSIVE METABOLIC 96286 ALBUMIN 4.3 GM/DL 2014 Unknown COMPREHENSIVE METABOLIC 22847 CHLORIDE 105 MMOL/L 01/07 Unknown COMPREHENSIVE METABOLIC 08485 BILI TOT 0.7 MG/DL 2014 Unknown COMPREHENSIVE METABOLIC 72925 ALK PHOS 51 U/L 2014 Unknown COMPREHENSIVE METABOLIC 58968 SODIUM 139 MMOL/L 01/07 Unknown COMPREHENSIVE METABOLIC 62600 CREATININE 0.85 MG/DL 12/11 Unknown COMPREHENSIVE METABOLIC 44898 CALCIUM 9.5 MG/DL 2014 Unknown COMPREHENSIVE METABOLIC 91097 POTASSIUM 4.4 MMOL/L 01/07 Unknown COMPREHENSIVE METABOLIC 28456 PROT TOT 6.7 GM/DL 2014 Unknown COMPREHENSIVE METABOLIC 46408 Glucose 100 MG/DL 2014 Unknown COMPREHENSIVE METABOLIC 42131 BICARB 27 MMOL/L 2014 Unknown COMPREHENSIVE METABOLIC 43510 ANION GAP 7 MEQ/L 2014 Unknown THYROID STIMULATING HORMONE 56002 TSH 0.900 uIU/ML 01/07/2015 Unknown COMPLETE BLOOD COUNT 8878195 WBC 4.9 10e9/L 01/08/20 15 Unknown COMPLETE BLOOD COUNT 9406672 RBC 4.71 10e12/L 2014 Unknown COMPLETE BLOOD COUNT 8274952 HGB 15.3 g/dL 5 Unknown COMPLETE BLOOD COUNT 9023336 HCT DET 46.1 % 5 Unknown COMPLETE BLOOD COUNT 5193723 MCV 97.9 fL 5 Unknown COMPLETE BLOOD COUNT 7317276 MCH 32.5 pg 5 Unknown COMPLETE BLOOD COUNT 6186366 MCHC 33.2 g/dL 5 Unknown COMPLETE BLOOD COUNT 1525968 PLT 227 10e9/L 01/08/20 15 Unknown COMPLETE BLOOD COUNT 1998853 MPV 10.9 fL 5 Unknown COMPLETE BLOOD COUNT 4512686 VERONIQUE % 53.0 % 5 Unknown COMPLETE BLOOD COUNT 7883661 LY % 35.8 % 5 Unknown COMPLETE BLOOD COUNT 4998369 MON % 8.6 % 5 Unknown COMPLETE BLOOD COUNT 0511562 EOS % 2.2 % 5 Unknown COMPLETE BLOOD COUNT 4730193 BASO % 0.4 % 5 Unknown COMPLETE BLOOD COUNT 8009392 RDW 12.9 % 5 Unknown COMPLETE BLOOD COUNT 9300501 ABS VERONIQUE 2.60 10e9/L 015 Unknown COMPLETE BLOOD COUNT 7211372 ABS LYMPH 1.75 10e9/L 015 Unknown COMPLETE BLOOD COUNT 5791335 ABS MONO 0.42 10e9/L 015 Unknown COMPLETE BLOOD COUNT 2993680 ABS EOS 0.11 10e9/L 015 Unknown COMPLETE BLOOD COUNT 5626272 ABS BASO 0.02 10e9/L 015 Unknown COMPLETE BLOOD COUNT 6983234 RDW-SD 45.7 fL 5 Unknown URIC ACID 38365 URIC ACID 6.7 MG/DL 01/07/2015 Unknown LIPID GROUP 71164 HDL TEST 52 MG/DL 01/07/2015 Unknown LIPID GROUP 38114 TRIG 158 MG/DL 01/07/2015 Unknown LIPID GROUP 33738 TEST LDL 157 MG/DL 01/07/2015 Unknown LIPID GROUP 92923 CHOL 241 MG/DL 01/07/2015 Unknown LIPID GROUP 13660 RCHOL/HDL 4.63 RATIO 01/07/2015 Unknow n LIPID GROUP 52267 NON-HDL CH 189 MG/DL 01/07/2015 Unknow n GFR CALC 0719749 GFR AA >60 ML/MIN 01/07/2015 Unknown GFR CALC 3448943 GFR NON-AA >60 ML/MIN 01/07/2015 Unknown PSA EQUIMOLAR JONATAN 71298 PSA EQ 2.18 NG/ML 5 Unknown FREE T4 38062 FREE T4 1.04 NG/DL 01/07/2015 Unknown GFR CALC 5593964 GFR AA >60 ML/MIN 12/11/2013 Unknown GFR CALC 7483260 GFR NON-AA >60 ML/MIN 12/11/2013 Unknown LIPID GROUP 27228 HDL TEST 54 MG/DL 12/11/2013 Unknown LIPID GROUP 66054 TRIG 81 MG/DL 12/11/2013 Unknown LIPID GROUP 89233 TEST LDL 185 MG/DL 12/11/2013 Unknown LIPID GROUP 08163 CHOL 255 MG/DL 12/11/2013 Unknown LIPID GROUP 39539 RCHOL/HDL 4.72 RATIO 12/11/2013 Unknow n LIPID GROUP 00062 NON-HDL CH 201 MG/DL 12/11/2013 Unknow n URIC ACID 16434 URIC ACID 7.1 MG/DL 12/11/2013 Unknown PSA EQUIMOLAR JONATAN 76990 PSA EQ 3.80 NG/ML 4 Unknown COMPLETE BLOOD COUNT 5123164 WBC 5.9 10e9/L 12/12/19 14 Unknown COMPLETE BLOOD COUNT 5265255 RBC 4.40 10e12/L 2013 Unknown COMPLETE BLOOD COUNT 0564534 HGB 14.5 g/dL 4 Unknown COMPLETE BLOOD COUNT 0306202 HCT DET 43.6 % 4 Unknown COMPLETE BLOOD COUNT 3788398 MCV 99.1 fL 4 Unknown COMPLETE BLOOD COUNT 3863322 MCH 33.0 pg 4 Unknown COMPLETE BLOOD COUNT 3323296 MCHC 33.3 g/dL 4 Unknown COMPLETE BLOOD COUNT 2235695 PLT 289 10e9/L 12/12/19 14 Unknown COMPLETE BLOOD COUNT 8709858 MPV 10.2 fL 4 Unknown COMPLETE BLOOD COUNT 1452247 [place] % 47.9 % 4 Unknown COMPLETE BLOOD COUNT 6494391 LY % 40.6 % 4 Unknown COMPLETE BLOOD COUNT 9932030 MON % 8.8 % 4 Unknown COMPLETE BLOOD COUNT 8456715 EOS % 2.2 % 4 Unknown COMPLETE BLOOD COUNT 4519743 BASO % 0.5 % 4 Unknown COMPLETE BLOOD COUNT 8860743 RDW 12.9 % 4 Unknown COMPLETE BLOOD COUNT 8218928 ABS VERONIQUE 2.83 10e9/L 014 Unknown COMPLETE BLOOD COUNT 3680208 ABS LYMPH 2.40 10e9/L 014 Unknown COMPLETE BLOOD COUNT 4483860 ABS MONO 0.52 10e9/L 014 Unknown COMPLETE BLOOD COUNT 1775743 ABS EOS 0.13 10e9/L 014 Unknown COMPLETE BLOOD COUNT 7255018 ABS BASO 0.03 10e9/L 014 Unknown COMPLETE BLOOD COUNT 7450575 RDW-SD 45.7 fL 4 Unknown THYROID STIMULATING HORMONE 33705 TSH 1.013 uIU/ML 12/11/2013 Unknown COMPREHENSIVE METABOLIC 15387 AST 20 U/L 2013 Unknown COMPREHENSIVE METABOLIC 80706 ALT 16 IU/L 2013 Unknown COMPREHENSIVE METABOLIC 53854 BUN 17 MG/DL 2013 Unknown COMPREHENSIVE METABOLIC 89799 ALBUMIN 4.6 GM/DL 2013 Unknown COMPREHENSIVE METABOLIC 31321 CHLORIDE 107 MMOL/L 12/11 Unknown COMPREHENSIVE METABOLIC 72255 BILI TOT 0.7 MG/DL 2013 Unknown COMPREHENSIVE METABOLIC 87541 ALK PHOS 53 U/L 2013 Unknown COMPREHENSIVE METABOLIC 35570 SODIUM 140 MMOL/L 12/11 Unknown COMPREHENSIVE METABOLIC 77527 CREATININE 0.84 MG/DL 06/2013 Unknown COMPREHENSIVE METABOLIC 31920 CALCIUM 9.7 MG/DL 2013 Unknown COMPREHENSIVE METABOLIC 45478 POTASSIUM 4.6 MMOL/L 12/11 Unknown COMPREHENSIVE METABOLIC 71027 PROT TOT 6.9 GM/DL 2013 Unknown COMPREHENSIVE METABOLIC 36202 Glucose 97 MG/DL 2013 Unknown COMPREHENSIVE METABOLIC 56851 BICARB 25 MMOL/L 2013 Unknown COMPREHENSIVE METABOLIC 17253 ANION GAP 8 MEQ/L 2013 Unknown FREE T4 64708 FREE T4 1.11 NG/DL 12/11/2013 Unknown ASSAY OF CREATININE 94234 CREATININE 0.98 MG/DL 09/15/19 12 Unknown URIC ACID 69252 URIC ACID 4.9 MG/DL 09/15/2011 Unknown GFR CALC 5420254 GFR AA >60 ML/MIN 09/15/2011 Unknown GFR CALC 1897012 GFR NON-AA >60 ML/MIN 09/15/2011 Unknown THYROID STIMULATING HORMONE 42061 TSH 1.687 uIU/ML 08/01/2011 Unknown FREE T4 39236 FREE T4 0.96 NG/DL 08/01/2011 Unknown SJOGRENS 5727430 SJOGRN A <20 EU/ML 08/01/2011 Unknown SJOGRENS 3923366 SJOGRN B <20 EU/ML 08/01/2011 Unknown SJOGRENS 1204116 NONHIS INT SEE BELO 08/01/2011 Unknown THYRO PERX 8576749 THYRO PERX 175.34 UNITS 07/30/2011 Unkn own DNA AB 7931720 DNA AB 32 IU/ML 07/29/2011 Unknown TITER WENDI 2506758 TITR WENDI 1:160 07/29/2011 Unknown TITER WENDI [id number] PATTERN NUCLEOLR 07/29/2011 Unknown ANTINUCLEAR ANTIBODY SCREEN 15130 WENDI SCR POSITIVE Unknown COMPREHENSIVE METABOLIC 38967 AST 23 U/L 2011 Unknown COMPREHENSIVE METABOLIC 34607 ALT 26 IU/L 2011 Unknown COMPREHENSIVE METABOLIC 32565 BUN 18 MG/DL 2011 Unknown COMPREHENSIVE METABOLIC 32553 ALBUMIN 4.6 GM/DL 2011 Unknown COMPREHENSIVE METABOLIC 57863 CHLORIDE 105 MMOL/L 07/27 Unknown COMPREHENSIVE METABOLIC 16908 BILI TOT 0.5 MG/DL 2011 Unknown COMPREHENSIVE METABOLIC 37717 ALK PHOS 63 U/L 2011 Unknown COMPREHENSIVE METABOLIC 78825 SODIUM 138 MMOL/L 07/27 Unknown COMPREHENSIVE METABOLIC 51854 CREATININE 0.92 MG/DL 07/09 Unknown COMPREHENSIVE METABOLIC 43998 CALCIUM 9.4 MG/DL 2011 Unknown COMPREHENSIVE METABOLIC 53462 POTASSIUM 3.9 MMOL/L 07/27 Unknown COMPREHENSIVE METABOLIC 53730 PROT TOT 6.7 GM/DL 2011 Unknown COMPREHENSIVE METABOLIC 33779 Glucose 101 MG/DL 2011 Unknown COMPREHENSIVE METABOLIC 26742 BICARB 24 MMOL/L 2011 Unknown COMPREHENSIVE METABOLIC 07053 ANION GAP 9 MEQ/L 2011 Unknown GFR CALC 8795726 GFR AA >60 ML/MIN 07/28/2011 Unknown GFR CALC 0935053 GFR NON-AA >60 ML/MIN 07/28/2011 Unknown ERYTHROCYTE SEDIMENTATION RATE 90417 ESR 2 MM/HR 07/28/2011 Unknown URIC ACID 45358 URIC ACID 5.8 MG/DL 07/28/2011 Unknown C-REACTIVE PROTEIN (CRP) QUANT 44712 CRP 0.2 MG/DL 07/28/2011 Unknown TITER WENDI 4856769 TITR WENDI 1:160 05/26/2011 Unknown TITER WENDI [id number] PATTERN NUCLEOLR 05/26/2011 Unknown RA FACTOR [id number] RA FACTOR <20.0 IU/ML 05/26/2011 Unknown ANTINUCLEAR ANTIBODY SCREEN 86275 WENDI SCR POSITIVE Unknown URIC ACID 52133 URIC ACID 8.7 MG/DL 05/25/2011 Unknown PSA EQUIMOLAR JONATAN 86718 PSA EQ 2.79 NG/ML 2 Unknown LIPID GROUP 16756 HDL TEST 47 MG/DL 05/25/2011 Unknown LIPID GROUP 14195 TRIG 198 MG/DL 05/25/2011 Unknown LIPID GROUP 98423 TEST LDL 180 MG/DL 05/25/2011 Unknown LIPID GROUP 00923 CHOL 267 MG/DL 05/25/2011 Unknown LIPID GROUP 05373 RCHOL/HDL 5.68 RATIO 05/25/2011 Unknow n COMPREHENSIVE METABOLIC 85648 AST 21 U/L 2011 Unknown COMPREHENSIVE METABOLIC 34256 ALT 21 IU/L 2011 Unknown COMPREHENSIVE METABOLIC 77085 BUN 16 MG/DL 2011 Unknown COMPREHENSIVE METABOLIC 48173 ALBUMIN 4.4 GM/DL 2011 Unknown COMPREHENSIVE METABOLIC 64324 CHLORIDE 105 MMOL/L 05/25 Unknown COMPREHENSIVE METABOLIC 28943 BILI TOT 0.7 MG/DL 2011 Unknown COMPREHENSIVE METABOLIC 76595 ALK PHOS 60 U/L 2011 Unknown COMPREHENSIVE METABOLIC 20619 SODIUM 139 MMOL/L 05/25 Unknown COMPREHENSIVE METABOLIC 20731 CREATININE 0.92 MG/DL 05/11 Unknown COMPREHENSIVE METABOLIC 77453 CALCIUM 9.4 MG/DL 2011 Unknown COMPREHENSIVE METABOLIC 83785 POTASSIUM 4.1 MMOL/L 05/25 Unknown COMPREHENSIVE METABOLIC 45526 PROT TOT 7.0 GM/DL 2011 Unknown COMPREHENSIVE METABOLIC 72565 Glucose 108 MG/DL 2011 Unknown COMPREHENSIVE METABOLIC 65143 BICARB 25 MMOL/L 2011 Unknown COMPREHENSIVE METABOLIC 77691 ANION GAP 9 MEQ/L 2011 Unknown GFR CALC [id number] GFR AA >60 ML/MIN 05/25/2011 Unknown GFR CALC [id number] GFR NON-AA >60 ML/MIN 05/25/2011 Unknown COMPLETE BLOOD COUNT 96412 WBC 5.6 10e9/L 05/25/19 12 Unknown COMPLETE BLOOD COUNT 13245 RBC 5.01 10e12/L 2011 Unknown COMPLETE BLOOD COUNT 75031 HGB 15.8 g/dL 2 Unknown COMPLETE BLOOD COUNT 30810 HCT DET 46.1 % 2 Unknown COMPLETE BLOOD COUNT 47633 MCV 92.0 fL 2 Unknown COMPLETE BLOOD COUNT 49021 MCH 31.5 pg 2 Unknown COMPLETE BLOOD COUNT 94466 MCHC 34.3 g/dL 2 Unknown COMPLETE BLOOD COUNT 68433 PLT 246 10e9/L 05/25/19 12 Unknown COMPLETE BLOOD COUNT 14733 MPV 10.3 fL 2 Unknown COMPLETE BLOOD COUNT 45659 VERONIQUE % 47.1 % 2 Unknown COMPLETE BLOOD COUNT 41442 LY % 41.0 % 2 Unknown COMPLETE BLOOD COUNT 00018 MON % 8.9 % 2 Unknown COMPLETE BLOOD COUNT 49792 EOS % 2.5 % 2 Unknown COMPLETE BLOOD COUNT 08136 BASO % 0.5 % 2 Unknown COMPLETE BLOOD COUNT 93504 RDW 12.7 % 2 Unknown COMPLETE BLOOD COUNT 84821 ABS VERONIQUE 2.64 10e9/L 012 Unknown COMPLETE BLOOD COUNT 96688 ABS LYMPH 2.30 10e9/L 012 Unknown COMPLETE BLOOD COUNT 19448 ABS MONO 0.50 10e9/L 012 Unknown COMPLETE BLOOD COUNT 32032 ABS EOS 0.14 10e9/L 012 Unknown COMPLETE BLOOD COUNT 83566 ABS BASO 0.03 10e9/L 012 Unknown COMPLETE BLOOD COUNT 69090 RDW-SD 41.3 fL 2 Unknown COMPREHENSIVE METABOLIC 39382 AST 18 U/L 2010 Unknown COMPREHENSIVE METABOLIC 60139 ALT 14 IU/L 2010 Unknown COMPREHENSIVE METABOLIC 65400 BUN 12 MG/DL 2010 Unknown COMPREHENSIVE METABOLIC 99874 ALBUMIN 4.6 GM/DL 2010 Unknown COMPREHENSIVE METABOLIC 08775 CHLORIDE 102 MMOL/L 02/01 Unknown COMPREHENSIVE METABOLIC 73353 BILI TOT 0.6 MG/DL 2010 Unknown COMPREHENSIVE METABOLIC 94853 ALK PHOS 66 U/L 2010 Unknown COMPREHENSIVE METABOLIC 10712 SODIUM 139 MMOL/L 02/01 Unknown COMPREHENSIVE METABOLIC 80466 CREATININE 0.92 MG/DL 01/09 Unknown COMPREHENSIVE METABOLIC 25593 CALCIUM 9.8 MG/DL 2010 Unknown COMPREHENSIVE METABOLIC 96832 POTASSIUM 4.1 MMOL/L 02/01 Unknown COMPREHENSIVE METABOLIC 19217 PROT TOT 7.0 GM/DL 2010 Unknown COMPREHENSIVE METABOLIC 34275 Glucose 101 MG/DL 2010 Unknown COMPREHENSIVE METABOLIC 86268 BICARB 25 MMOL/L 2010 Unknown COMPREHENSIVE METABOLIC 82609 ANION GAP 12 MEQ/L 2010 Unknown GFR CALC [id number] GFR AA >60 ML/MIN 02/01/2011 Unknown GFR CALC [id number] GFR NON-AA >60 ML/MIN 02/01/2011 Unknown LIPID GROUP 12657 HDL TEST 44 MG/DL 02/01/2011 Unknown LIPID GROUP 98711 TRIG 157 MG/DL 02/01/2011 Unknown LIPID GROUP 62949 TEST LDL 193 MG/DL 02/01/2011 Unknown LIPID GROUP 43956 CHOL 268 MG/DL 02/01/2011 Unknown LIPID GROUP 93605 RCHOL/HDL 6.09 RATIO 02/01/2011 Unknow n FREE T4 69093 FREE T4 1.04 NG/DL 02/01/2011 Unknown COMPLETE BLOOD COUNT 64755 WBC 6.4 10e9/L 02/02/20 11 Unknown COMPLETE BLOOD COUNT 07882 RBC 4.56 10e12/L 2010 Unknown COMPLETE BLOOD COUNT 85319 HGB 14.4 g/dL 1 Unknown COMPLETE BLOOD COUNT 74703 HCT DET 43.0 % 1 Unknown COMPLETE BLOOD COUNT 54523 MCV 94.3 fL 1 Unknown COMPLETE BLOOD COUNT 98645 MCH 31.6 pg 1 Unknown COMPLETE BLOOD COUNT 45377 MCHC 33.5 g/dL 1 Unknown COMPLETE BLOOD COUNT 64815 PLT 300 10e9/L 02/02/20 11 Unknown COMPLETE BLOOD COUNT 76061 MPV 9.9 fL 1 Unknown COMPLETE BLOOD COUNT 72621 VERONIQUE % 38.5 % 1 Unknown COMPLETE BLOOD COUNT 01138 LY % 49.1 % 1 Unknown COMPLETE BLOOD COUNT 16865 MON % 10.1 % 1 Unknown COMPLETE BLOOD COUNT 90236 EOS % 1.7 % 1 Unknown COMPLETE BLOOD COUNT 41431 BASO % 0.6 % 1 Unknown COMPLETE BLOOD COUNT 97515 RDW 15.1 % 1 Unknown COMPLETE BLOOD COUNT 00833 ABS VERONIQUE 2.46 10e9/L 011 Unknown COMPLETE BLOOD COUNT 20736 ABS LYMPH 3.14 10e9/L 011 Unknown COMPLETE BLOOD COUNT 09488 ABS MONO 0.65 10e9/L 011 Unknown COMPLETE BLOOD COUNT 70461 ABS EOS 0.11 10e9/L 011 Unknown COMPLETE BLOOD COUNT 90250 ABS BASO 0.04 10e9/L 011 Unknown COMPLETE BLOOD COUNT 04467 RDW-SD 50.6 fL 1 Unknown THYROID STIMULATING HORMONE 00067 TSH 1.128 uIU/ML 02/01/2011 Unknown PSA EQUIMOLAR JONATAN 85495 PSA EQ 3.83 NG/ML 1 Unknown VCA AB G/M 6625391 EBV G VCA 3.34 12/03/2010 Unknown VCA AB G/M 3622170 EBV M VCA 0.12 12/03/2010 Unknown EB GARY AG [id number] EB GARY AG 0.47 12/03/2010 Unknown EB NUCL AB [id number] EB NUCL AB 3.72 12/03/2010 Unknown COMPLETE BLOOD COUNT 04745 WBC 8.0 10e9/L 12/03/19 11 Unknown COMPLETE BLOOD COUNT 18901 RBC 4.93 10e12/L 2010 Unknown COMPLETE BLOOD COUNT 33195 HGB 15.7 g/dL 1 Unknown COMPLETE BLOOD COUNT 25900 HCT DET 45.4 % 1 Unknown COMPLETE BLOOD COUNT 56717 MCV 92.1 fL 1 Unknown COMPLETE BLOOD COUNT 38971 MCH 31.8 pg 1 Unknown COMPLETE BLOOD COUNT 89935 MCHC 34.6 g/dL 1 Unknown COMPLETE BLOOD COUNT 25729 PLT 248 10e9/L 12/03/19 11 Unknown COMPLETE BLOOD COUNT 84316 MPV 10.4 fL 1 Unknown COMPLETE BLOOD COUNT 75235 VERONIQUE % 74.0 % 1 Unknown COMPLETE BLOOD COUNT 23467 LY % 19.6 % 1 Unknown COMPLETE BLOOD COUNT 20446 MON % 5.2 % 1 Unknown COMPLETE BLOOD COUNT 22230 EOS % 1.1 % 1 Unknown COMPLETE BLOOD COUNT 09391 BASO % 0.1 % 1 Unknown COMPLETE BLOOD COUNT 50357 RDW 12.5 % 1 Unknown COMPLETE BLOOD COUNT 71240 ABS VERONIQUE 5.92 10e9/L 011 Unknown COMPLETE BLOOD COUNT 41077 ABS LYMPH 1.57 10e9/L 011 Unknown COMPLETE BLOOD COUNT 02648 ABS MONO 0.42 10e9/L 011 Unknown COMPLETE BLOOD COUNT 51636 ABS EOS 0.09 10e9/L 011 Unknown COMPLETE BLOOD COUNT 99458 ABS BASO 0.01 10e9/L 011 Unknown COMPLETE BLOOD COUNT 40671 RDW-SD 41.1 fL 1 Unknown URIC ACID 41062 URIC ACID 9.3 MG/DL 12/02/2010 Unknown Procedures Procedure Codes Date URINALYSIS NONAUTO W/O SCOPE CPT-4: 93901 06/20/2019 URINE CULTURE/ COLONY COUNT CPT-4: 12758 06/20/2019 DEXAMETHASONE SODIUM PHOS CPT-4: J1100 05/31/2019 THER/PROPH/DIAG INJ SC/IM CPT-4: 74310 05/31/2019 THER/PROPH/DIAG INJ SC/IM CPT-4: 45432 05/17/2019 TRIAMCINOLONE ACET INJ NOS CPT-4: J3301 05/17/2019 DRAINAGE OF SKIN ABSCESS CPT-4: 47565 01/23/2019 AEROBIC WOUND CULTURE & STN CPT-4: 29818 01/23/2019 ROUTINE VENIPUNCTURE CPT-4: 37692 03/29/2017 ASSAY THYROID STIM HORMONE CPT-4: 58984 03/29/2017 ASSAY OF FREE THYROXINE CPT-4: 87132 03/29/2017 COMPREHEN METABOLIC PANEL CPT-4: 86515 03/29/2017 COMPLETE CBC W/AUTO DIFF WBC CPT-4: 16740 03/29/2017 LIPID PANEL CPT-4: 99448 03/29/2017 ASSAY OF BLOOD/URIC ACID CPT-4: 89687 03/29/2017 RBC SED RATE AUTOMATED CPT-4: 45774 03/29/2017 ROUTINE VENIPUNCTURE CPT-4: 58009 03/15/2017 ACUTE HEPATITIS PANEL CPT-4: 69906 03/15/2017 HIV-1/HIV-2 1 RESULT ANTBDY CPT-4: 25713 03/15/2017 EXC TR-EXT B9+SHASHA 0.5 CM< CPT-4: 01798 03/15/2017 EXC TR-EXT B9+SHASHA 1.1-2 CM CPT-4: 10780 03/15/2017 URINALYSIS NONAUTO W/O SCOPE CPT-4: 72115 01/07/2015 URINE CULTURE/ COLONY COUNT CPT-4: 92919 01/07/2015 ROUTINE VENIPUNCTURE CPT-4: 25085 01/07/2015 ASSAY OF FREE THYROXINE CPT-4: 15341 01/07/2015 ASSAY THYROID STIM HORMONE CPT-4: 44705 01/07/2015 COMPREHEN METABOLIC PANEL CPT-4: 79384 01/07/2015 COMPLETE CBC W/AUTO DIFF WBC CPT-4: 99373 01/07/2015 LIPID PANEL CPT-4: 10401 01/07/2015 ASSAY OF PSA TOTAL CPT-4: 39988 01/07/2015 ASSAY OF BLOOD/URIC ACID CPT-4: 25427 01/07/2015 ROUTINE VENIPUNCTURE CPT-4: 09252 12/11/2013 ASSAY OF FREE THYROXINE CPT-4: 44196 12/11/2013 ASSAY THYROID STIM HORMONE CPT-4: 85936 12/11/2013 COMPREHEN METABOLIC PANEL CPT-4: 58793 12/11/2013 COMPLETE CBC W/AUTO DIFF WBC CPT-4: 57352 12/11/2013 LIPID PANEL CPT-4: 91026 12/11/2013 ASSAY OF BLOOD/URIC ACID CPT-4: 99380 12/11/2013 ASSAY OF PSA TOTAL CPT-4: 51541 12/11/2013 URINE CULTURE/ COLONY COUNT CPT-4: 84687 01/02/2013 AEROBIC WOUND CULTURE & STN CPT-4: 47920 10/10/2011 DRAINAGE OF SKIN ABSCESS CPT-4: 96061 10/10/2011 ASSAY OF CREATININE CPT-4: 38791 09/15/2011 ASSAY OF BLOOD/URIC ACID CPT-4: 35145 09/15/2011 ROUTINE VENIPUNCTURE CPT-4: 36541 07/28/2011 ANTINUCLEAR ANTIBODIES CPT-4: 98617 07/28/2011 RBC SED RATE AUTOMATED CPT-4: 67790 07/28/2011 ASSAY OF BLOOD/URIC ACID CPT-4: 72956 07/28/2011 COMPREHEN METABOLIC PANEL CPT-4: 96511 07/28/2011 C-REACTIVE PROTEIN CPT-4: 50671 07/28/2011 THYRO PERX CPT-4: 6961139 07/28/2011 DNA AB CPT-4: 3071247 07/28/2011 SJOGRENS CPT-4: 8807736 07/28/2011 ASSAY OF FREE THYROXINE CPT-4: 05648 07/28/2011 ASSAY THYROID STIM HORMONE CPT-4: 46705 07/28/2011 ROUTINE VENIPUNCTURE CPT-4: 52161 05/25/2011 COMPREHEN METABOLIC PANEL CPT-4: 99508 05/25/2011 COMPLETE CBC W/AUTO DIFF WBC CPT-4: 01745 05/25/2011 ANTINUCLEAR ANTIBODIES CPT-4: 00345 05/25/2011 RHEUMATOID FACTOR QUANT CPT-4: 23922 05/25/2011 ASSAY OF PSA TOTAL CPT-4: 46719 05/25/2011 ASSAY OF BLOOD/URIC ACID CPT-4: 94878 05/25/2011 LIPID PANEL CPT-4: 74366 05/25/2011 ROUTINE VENIPUNCTURE CPT-4: 32987 02/01/2011 ASSAY OF FREE THYROXINE CPT-4: 95568 02/01/2011 ASSAY THYROID STIM HORMONE CPT-4: 47439 02/01/2011 COMPREHEN METABOLIC PANEL CPT-4: 41704 02/01/2011 COMPLETE CBC W/AUTO DIFF WBC CPT-4: 04045 02/01/2011 LIPID PANEL CPT-4: 45147 02/01/2011 ASSAY OF PSA TOTAL CPT-4: 93033 02/01/2011 ROUTINE VENIPUNCTURE CPT-4: 70890 12/02/2010 ASSAY OF BLOOD/URIC ACID CPT-4: 96922 12/02/2010 EB VIRUS VCA G/M + EBNA + EA CPT-4: 06922|74706 x 2|25802 COMPLETE CBC W/AUTO DIFF WBC CPT-4: 02458 12/02/2010 COMPREHEN METABOLIC PANEL CPT-4: 50292 09/14/2009 ASSAY OF BLOOD/URIC ACID CPT-4: 15363 09/14/2009 ROUTINE VENIPUNCTURE CPT-4: 99365 09/14/2009 URINALYSIS NONAUTO W/O SCOPE CPT-4: 21347 09/01/2009 Vital Signs Date Vital 06/20/2019 Respiratory [...] 1: 118/64 Code: 8480-6 BMI: 29.7 Code: 00724-9 Heart Rate 1: 100 bpm Height: 5'6" Respiratory Rate: 22 bpm SpO2: 95% Tempera ture: 36.7 (C) / 98.0 (F) Weight: 187 lbs 02/27/2017 Blood Pressure 1: 132/76 Code: 8480-6 BMI: 30.8 Code: 18625-1 Heart Rate 1: 96 bpm Height: 5'6" Respiratory Rate: 22 bpm SpO2: 98% Tempera ture: 36.6 (C) / 97.8 (F) Weight: 194 lbs 03/31/2015 Blood Pressure 1: 128/90 Code: 8480-6 Heart Rate 1: 88 bpm Respiratory Rate: 20 bpm Temperature: 36.9 (C) / 98.4 (F) Weight: 192 lbs 01/07/2015 Blood Pressure 1: 132/80 Code: 8480-6 BMI: 30.2 Code: 14645-2 Heart Rate 1: 78 bpm Height: 5'6" Respiratory Rate: 22 bpm Temperature: 36 .7 (C) / 98.1 (F) Weight: 190 lbs 04/15/2014 Blood Pressure 1: 136/88 Code: 8480-6 BMI: 31.0 Code: 97487-7 Heart Rate 1: 84 bpm Height: 5'6" Respiratory Rate: 20 bpm Temperature: 36 .1 (C) / 97.0 (F) Weight: 192 lbs 12/10/2013 Blood Pressure 1: 142/90 Code: 8480-6 BMI: 29.1 Code: 39862-8 Heart Rate 1: 72 bpm Height: 5'7" Respiratory Rate: 20 bpm Temperature: 36 .6 (C) / 97.8 (F) Weight: 186 lbs 05/02/2013 Blood Pressure 1: 146/96 Code: 8480-6 BMI: 30.5 Code: 04225-4 Heart Rate 1: 88 bpm Height: 5'7" Respiratory Rate: 20 bpm Temperature: 37 .0 (C) / 98.6 (F) Weight: 195 lbs 01/02/2013 Blood Pressure 1: 132/84 Code: 8480-6 BMI: 30.2 Code: 05427-4 Heart Rate 1: 80 bpm Height: 5'7" Respiratory Rate: 20 bpm Temperature: 36 .9 (C) / 98.4 (F) Weight: 193 lbs 10/10/2011 Blood Pressure 1: 122/68 Code: 8480-6 BMI: 35.7 Code: 46397-7 Heart Rate 1: 84 bpm Height: 5'2" Temperature: 36.9 (C) / 98.5 (F) Weight: 195 lbs 08/12/2011 Blood Pressure 1: 110/80 Code: 8480-6 BMI: 36.9 Code: 94372-2 Heart Rate 1: 80 bpm Height: 5'2" Temperature: 36.4 (C) / 97.6 (F) Weight: 202 lbs 08/04/2011 Blood Pressure 1: 126/80 Code: 8480-6 BMI: 37.9 Code: 12678-9 Heart Rate 1: 76 bpm Height: 5'2" Respiratory Rate: 20 bpm Temperature: 37 .0 (C) / 98.6 (F) Weight: 207 lbs 05/24/2011 Blood Pressure 1: 122/82 Code: 8480-6 BMI: 37.7 Code: 46036-8 Heart Rate 1: 68 bpm Height: 5'2" Temperature: 36.7 (C) / 98.1 (F) Weight: 206 lbs 04/15/2011 Blood Pressure 1: 128/82 Code: 8480-6 BMI: 37.1 Code: 83470-6 Heart Rate 1: 68 bpm Height: 5'2" [...] 1: 106/62 Code: 8480-6 BMI: 36.8 Code: 08464-6 Heart Rate 1: 90 bpm Height: 5'2" SpO2: 94% Temperature: 36.4 (C) / 97.6 (F) Weight: 201 lbs 12/02/2010 Blood Pressure 1: 142/90 Code: 8480-6 BMI: 36.8 Code: 89390-6 Heart Rate 1: 96 bpm Height: 5'2" [...] success Encounters Encounter Performer Location Codes Date ([id number]) OFFICE/OUTPATIENT VISIT EST Diagnosis: Enlarged testicle[ICD10: N50.89] Diagnosis: Polyuria[ICD10: R35.8] Azra Kirkhenrik SAINZ Culture JamFrancisco CyVekJEAN CLAUDE Thubrikar Aortic Valve [facility] CPT-4: 08814 06/20/2019 ([id number]) OFFICE/OUTPATIENT VISIT EST Diagnosis: Acute contact dermatitis[ICD10: L25.9] Azra Kirkhenrik BROWNLEE [employer] CPT-4: 06260 05/31/2019 ([id number]) OFFICE/OUTPATIENT VISIT EST Diagnosis: Acute contact dermatitis[ICD10: L25.9] Diagnosis: Acute sinusitis[ICD10: J01.90] Sylvie SAINZ [employer] CPT-4: 44006 05/17/2019 ([id number]) OFFICE/OUTPATIENT VISIT EST Diagnosis: Acute gastritis without bleeding[ICD10: K29.00] Diagnosis: Essential (primary) hypertension[ICD10: I10] Diagnosis: Hyperlipidemia, unspecified[ICD10: E78.5] Azra COOK [employer] CPT-4: 77086 10/31/2018 ([id number]) OFFICE/OUTPATIENT VISIT EST Diagnosis: Acute gastritis without bleeding[ICD10: K29.00] Azra SAINZ [employer] Jam[employer] [facility] CPT-4: 87831 01/18/2018 ([id number]) OFFICE/OUTPATIENT VISIT EST Diagnosis: Hyperlipidemia, unspecified[ICD10: E78.5] Diagnosis: Essential (primary) hypertension[ICD10: I10] Diagnosis: Weakness[ICD10: R53.1] Diagnosis: Sebaceous cyst[ICD10: L72.3] Diagnosis: Idiopathic gout, unspecified site[ICD10: M10.00] Sylvie BYRNE Thubrikar Aortic Valve [facility] CPT-4: 85332 03/29/2017 OFFICE/OUTPATIENT VISIT EST Diagnosis: Pain in right knee[ICD10: M25.561] Azra BYRNE Thubrikar Aortic Valve [facility] CPT-4: 19912 03/13/2017 OFFICE/OUTPATIENT VISIT EST Diagnosis: Pain in right leg[ICD10: M79.604] Diagnosis: Sebaceous cyst[ICD10: L72.3] Azra BYRNE Thubrikar Aortic Valve [facility] CPT-4: 43332 02/27/2017 OFFICE/OUTPATIENT VISIT EST Diagnosis: Local infection of the skin and subcutaneous tissue, unspecified[ICD10: L08.9] Diagnosis: Essential (primary) hypertension[ICD10: I10] Diagnosis: Hyperlipidemia, unspecified[ICD10: E78.5] Dagmar ZhaoHeidijazmine BYRNE Thubrikar Aortic Valve [facility] CPT-4: 29194 03/31/2015 ([id number]) PREV VISIT EST AGE 40-64 Diagnosis: History of chest pain[ICD9: V13.89] Diagnosis: Right flank pain[ICD9: 789.09] Diagnosis: ROUTINE MEDICAL EXAM[ICD9: V70.0] Diagnosis: HYPERTENSION[ICD9: 401.9] Diagnosis: HYPERLIPIDEMIA NEC/NOS[ICD9: 272.4] Diagnosis: Colon polyps[ICD9: 211.3] Diagnosis: HEMATURIA NOS[ICD9: 599.70] Dagmar ZhaoHeidibrendajamari SYLVIE BYRNE Thubrikar Aortic Valve [facility] CPT-4: 64895 01/07/2015 OFFICE/OUTPATIENT VISIT EST Diagnosis: COUGH[ICD9: 786.2] Diagnosis: Rectal itching[ICD9: 698.0] Dagmar ZhaoHeidijazmine BYRNE Thubrikar Aortic Valve [facility] CPT-4: 88844 04/15/2014 ([id number]) OFFICE/OUTPATIENT VISIT EST Diagnosis: ROUTINE MEDICAL EXAM[ICD9: V70.0] Diagnosis: GOUT[ICD9: 274.9] Diagnosis: HYPERLIPIDEMIA NEC/NOS[ICD9: 272.4] Diagnosis: HYPERTENSION[ICD9: 401.9] Sylvie SILVERIO [facility] CPT-4: 05433 12/11/2013 ([id number]) OFFICE/OUTPATIENT VISIT EST Diagnosis: Shingles[ICD9: 053.9] Sylvie BYRNE [facility] CPT-4: 22514 12/10/2013 ([id number]) OFFICE/OUTPATIENT VISIT EST Diagnosis: HYPERTENSION[ICD9: 401.9] Diagnosis: Colon polyps[ICD9: 211.3] Diagnosis: Stress reaction[ICD9: 308.9] Sylvie BYRNE [facility] CPT-4: 29728 05/02/2013 ([id number]) OFFICE/OUTPATIENT VISIT EST Diagnosis: URINARY TRACT INFECTION[ICD9: 599.0] Sylvie ChapaFrancisco AGAPITO [facility] CPT-4: 33929 01/02/2013 OFFICE/OUTPATIENT VISIT EST Diagnosis: CELLULITIS OF TRUNK[ICD9: 682.2] Diagnosis: SPRAIN SHOULDER/ARM[ICD9: 840.9] Liza Ragsdale SYLVIE Alan BYRNE [facility] CPT-4: 19685 10/10/2011 ([id number]) OFFICE/OUTPATIENT VISIT EST Diagnosis: GOUT[ICD9: 274.9] Sylvie WILSONLINE SammiFrancisco AGAPITO [facility] CPT-4: 15364 09/15/2011 OFFICE/OUTPATIENT VISIT EST Diagnosis: DIARRHEA[ICD9: 787.91] Sylvie WILSONLINE SammiFrancisco HUONG Cagle [facility] CPT-4: 52401 08/12/2011 ([id number]) OFFICE/OUTPATIENT VISIT EST Diagnosis: GOUT[ICD9: 274.9] Diagnosis: Positive WENDI (antinuclear antibody)[ICD9: 795.79] Sylvie ChapaFrancisco AGAPITO [facility] CPT-4: 37974 08/04/2011 OFFICE/OUTPATIENT VISIT EST Diagnosis: Rash[ICD9: 782.1] Diagnosis: Joint pain[ICD9: 719.40] Diagnosis: Hyperlipidemia[ICD9: 272.4] Sylvie SAINZ S. Shad RENDER DO [facility] CPT-4: 89441 05/24/2011 OFFICE/OUTPATIENT VISIT EST Diagnosis: PHARYNGITIS, ACUTE[ICD9: 462] Diagnosis: COUGH[ICD9: 786.2] Diagnosis: SINUSITIS, ACUTE[ICD9: 461.9] Sylvie BYRNE DO [facility] CPT-4: 58853 04/15/2011 OFFICE/OUTPATIENT VISIT EST Diagnosis: Clavicle fracture[ICD9: 810.00] Sylvie BYRNE DO [facility] CPT-4: 81382 01/13/2011 OFFICE/OUTPATIENT VISIT EST Diagnosis: Clavicle pain[ICD9: 719.41] Sylvie Chapa. Shad RENDER DO [facility] CPT-4: 10169 12/23/2010 OFFICE/OUTPATIENT VISIT EST Diagnosis: Arm pain[ICD9: 729.5] Diagnosis: SPASM OF MUSCLE[ICD9: 728.85] Diagnosis: Neck pain[ICD9: 723.1] Sylvie WILSONLINE Alan Cagle [facility] CPT-4: 39730 12/15/2010 OFFICE/OUTPATIENT VISIT EST Diagnosis: HYPERTENSION[ICD9: 401.9] Diagnosis: PHARYNGITIS, ACUTE[ICD9: 462] Diagnosis: MALAISE AND FATIGUE[ICD9: 780.79] Diagnosis: GOUT[ICD9: 274.9] Sylvie Yvanhenrikchris WILSONSYLVIE SammiFrancisco AGAPITO MOLINA [facility] CPT-4: 74671 12/02/2010 ([id number]) OFFICE/OUTPATIENT VISIT, EST Sylvie Yvanhenrikchris JUVENTINO GUICHIQUITA Alan BYRNE DO [facility] CPT-4: 48285 04/19/2010 ([id number]) OFFICE/OUTPATIENT VISIT, EST Sylvie Yvanhenrikchris JUVENTINO GUICHIQUITA SammiFrancisco AGAPITO MOLINA [facility] CPT-4: 82690 04/14/2010 ([id number]) OFFICE/OUTPATIENT VISIT, EST Sylvie Yvanjean claude JAUREGUI GUICHIQUITA SammiFrancisco AGAPITO MOLINA [facility] CPT-4: 21687 09/01/2009 Plan of Care Planned Activity Notes [...] Care Plan: US EXAM SCROTUM LOINC : 49569 -7 Pending 06/20/2019 Visit Diagnosis Plan: Acute contact dermatitis Discuss ion: skin scrape obtained due to recurrent issue. 4 mg dexamethasone given in office. prednisone prescribed to take as directed. instructed to change laundry detergent back to original and wash a week's worth of clothes in other detergent to see if problem improves. ICD-9 : 692.9 ICD-10 : L25.9 05/31/2019 Appointment: Azra Bradley [address] [place], [place] [id number] ACUTE ILLNESS 05/31/2019 Patient Education: prednisone- [employer] Coupon [phone] [email or web address].[employer]/samplemd/resources/getResource/61/[email or web address] Completed 05/31/2019 Visit Diagnosis Plan: Acute contact dermatitis Discuss ion: Kenalog 40mg IM now Cover with [employer] Call in 1week on how doing Medrol Dose Pack ICD-9 : 692.9 ICD-10 : L25.9 05/17/2019 Appointment: Sylvie Byrne WPtel: [phone] [facility] ACUTE ILLNESS 05/17/2019 Patient Education: Medrol (Nicholas)- [employer] Coupon [phone] https://www.[email or web address]/[email or web address] [employer]/resources/getResource/61/[email or web address] Completed 05/17/2019 Visit Diagnosis Plan: Abscess of chest wall Discussion : patient has large amount of induration still noted despite recent drainage and antibiotics. dr. najera's office was called and they were able to see patient today. patient was sent over there for possible surgery. ICD-9 : 682.2 ICD-10 : L02.213 01/25/2019 Appointment: Azra Bradley [address] [place], [place] [id number] FOLLOW UP 01/25/2019 Visit Diagnosis Plan: Abscess [...] ICD-10 : L02.213 01/23/2019 Appointment: Azra Bradley [address] [place], [place] [address] Patient called 01/21/[address] [facility] 01/23 appt OF FICE SURGERY 01/23/2019 Patient Education: clindamycin HCl- [employer] Coupon [phone] https://www.[email or web address]/samplemd/resources/getResource/61/[email or web address] Completed 01/23/2019 Appointment: Azra Bradley [address] [place], [place] [id number] CANCELED 01/16/2019 Visit Diagnosis Plan: Acute gastritis [...] : 272.4 ICD-10 : E78.5 10/31/2018 Appointment: Azar Bradley [address] [place], [place] [address] ACUTE ILLNESS 10/31/2018 Patient Education: High Blood [...] ICD-10 : K29.00 01/18/2018 Appointment: Azra Bradley [address] [place], [place] [id number] ACUTE ILLNESS 01/18/2018 Patient Education: Patient Medication Summary Completed 01/18/2018 Appointment: Sylvie Byrne WPtel: [facility] LAB 03/29/2017 Patient Education: Patient Medication Summary [...] : L72.3 03/15/2017 Appointment: Azra Bradley [address] [facility] OFFICE SURGERY 03/15/2017 Patient Education: Patient Medication [...] : M25.561 03/13/2017 [facility] [facility] 03/13/2017 Patient Education: Patient Medication Summary Completed 03/13/2017 Care Plan: X-RAY EXAM OF KNEE 1 OR 2 [place]UL [place] : 36878-8 Pending 03/13/2017 Visit Diagnosis Plan: Sebaceous cyst [...] : M79.604 02/27/2017 Appointment: Azra Bradley [address] ACUTE ILLNESS 02/27/2017 Patient Education: Patient Medication Summary Completed 02/27/2017 Appointment: Katerina Sousa WPtel: [phone] [place] [address] ACUTE ILLNESS 08/21/2015 Visit Plan: Has been off of Pravastatin. Will resume Pravastitin 20mg. and re- check labs in 3 months, Resume Lisinopril and Allopurinol Warm moist compresses to left chest lesion Complete doxycycline Return check after antibiotics completed if no improvement in lesion to left chest will refer for removal of nodular skin lesion upper right back. 03/31/2015 Appointment: Dagmar Ahmadi WPtel: [phone] [place], [place] [address] 03/30 Confirmed ~sl FOLLOW UP 03/31/2015 Patient Education: Patient Medication Summary Completed 03/31/2015 Visit Plan: CBC, CMP, TSH, Free T4, Lipi d Panel, Uric Acid, PSA, EKG Urine culture today Increase fluids to >120cc's daily. Notify if flank pain increases. Resume Lisinopril 20 mg PO daily Resume Allopurinol 100 mg Ciprofloxacin 500 mg PO bid Scheudule appt. for follow-up Colonscopy - [place] 01/07/2015 Appointment: Dagmar Ahmadi WPtel: [phone] [phone] 01/06 appointment confirmed cn Annual Well Visit 01/07/2015 Patient Education: Patient Medication Summary Completed 01/07/2015 Patient Education: [facility] - Saving [employer] - Lisinopril - 18-64 - Dynamic Portal ID Completed 01/07/2015 Appointment: Sylvie Byrne WPtel: [address] [place] [address] ACUTE ILLNESS 08/26/2014 Appointment: Dagmar Ahmadi WPtel: [address] [place] [address] ACUTE ILLNESS 04/15/2014 Patient Education: Patient Medication Summary Completed 04/15/2014 Appointment: Sylvie Byrne WPtel: [address] [place] [address] US LAB 12/11/2013 Patient Education: Patient Medication Summary Completed 12/11/2013 Visit Plan: Check CBC, CMP, TSH, Free T4 , Lipids, uric acid, PSA--pt will return in AM for fasting lab Finish acyclovir Discussed Zostavax down road 12/10/2013 Appointment: Sylvie Byrne WPtel: [address] [place] [address] 12/06 left message FOLLOW UP 12/10/2013 Patient Education: Patient Medication Summary Completed 12/10/2013 Visit Plan: Lisinopril 20mg daily Stress Reducers and trial of fluoxetine 10mg q am Proceed with colonoscopy Check fasting lab 05/02/2013 Appointment: Sylvie Byrne WPtel: [address] [place] [address] ACUTE ILLNESS 05/02/2013 Patient Education: Patient Medication Summary Completed 05/02/2013 Appointment: Sylvie Byrne WPtel: [address] [place] [address] ACUTE ILLNESS 01/02/2013 Patient Education: Patient Medication Summary Completed 01/02/2013 Appointment: Liza Ragsdale WPtel: [address] [place] [address] ACUTE ILLNESS 10/10/2011 Patient Education: Patient Medication Summary Completed 10/10/2011 Appointment: [facility] [phone] [facility] [id number] [place] 09/15/2011 Patient Education: Patient Medication [...] 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 08/12/2011 Appointment: Liza Ragsdale WPtel: [address] [place] [address] ACUTE ILLNESS 08/12/2011 Patient Education: Patient Medication Summary Completed 08/12/2011 Visit Plan: Continue increased dose of a llopurinol and daily colcrys Recheck thyroid lab, uric acid and PSA in 3mos Will hold on NSAID at this time due to history of GERD 08/04/2011 Appointment: Sylvie Byrne WPtel: [address] [place], [place] [phone] FOLLOW UP 08/04/2011 Patient Education: Patient Medication Summary Completed 08/04/2011 Appointment: Sylvie Byrne WPtel: [address] [place], [place] [phone] [place] LAB 07/28/2011 Patient Education: Patient Medication Summary Completed 07/28/2011 Appointment: Sylvie Byrne WPtel: [phone] [place], [place] [id number] [place] LAB 05/25/2011 Patient Education: Patient Medication [...] at night. 05/24/2011 Appointment: Liza Ragsdale WPtel: [address] [place] [address] ACUTE ILLNESS 05/24/2011 Patient Education: Patient Medication Summary Completed 05/24/2011 Visit Plan: codeine/guif cough syrup and cefdinir are phoned to [facility]. Discussed fluids and rest. Pt. will notify if symptoms persist or worsen. 04/15/2011 Appointment: Liza Ragsdale WPtel: [address] [place] [address] ACUTE ILLNESS 04/15/2011 Patient Education: Patient Medication Summary Completed 04/15/2011 Appointment: Sylvie Byrne WPtel: [address] [place] [address] LAB 02/01/2011 Patient Education: Patient Medication Summary Completed 02/01/2011 Visit Plan: Repeat clavicle x-ray in 6wk s Check bone density 01/13/2011 Appointment: Sylvie Byrne WPtel: [address] [place] [phone] FOLLOW UP 01/13/2011 Patient Education: Patient Medication Summary Completed 01/13/2011 Visit Plan: Check right clavicle and alda ulder x-ray Continue Vimovo and flexeril 12/23/2010 Appointment: Sylvie Byrne WPtel: [address] [place] [address] FOLLOW UP 12/23/2010 Patient Education: Patient Medication Summary Completed 12/23/2010 Appointment: Sylvie Byrne WPtel: [address] [place] [address] ER Follow UP 12/15/2010 Patient Education: Patient [...] BP check. 12/02/2010 Appointment: Liza Ragsdale WPtel: [address] [place], [place] [phone] ACUTE ILLNESS 12/02/2010 Patient Education: Patient Medication Summary Completed 12/02/2010 Care Plan: ASSAY OF BLOOD/URIC ACID Pendi ng 12/02/2010 Care Plan: VCA AB G/M Pending 2010 Care Plan: EB GARY AG Pending 2010 Care Plan: EB NUCL AB Pending 2010 Appointment: Sylvie Byrne WPtel: [address] [place], [place] [phone] FOLLOW UP 11/18/2010 Visit Plan: benadryl 25 mg tab QHS. 12.5 mg tab every 8 hrs during the day. Pt. will notify if symptoms worsen. No facial edema present. 04/19/2010 Appointment: Liza Ragsdale WPtel: [address] [place], [place] [phone] FOLLOW UP 04/19/2010 Patient Education: [...] no improvement. 04/14/2010 Appointment: Liza Ragsdale WPtel: [address] [place], [place] [phone] ACUTE ILLNESS 04/14/2010 Patient Education: Patient Medication Summary Completed 04/14/2010 Appointment: Liza Ragsdale WPtel: [address] [place], [place] [phone] ACUTE ILLNESS 03/12/2010 [facility]ment: [facility] [phone] [id number] [place] 09/14/2009 Patient Education: Patient Medication Summary Completed 09/14/2009 Appointment: [facility] [phone] [id number] [place] [facility] 09/01/2009 Patient Education: Patient Medication [...] 100 mg Ciprofloxacin 500 mg PO bid 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 . Continue increased dose of [...]
--- OUTSIDE RECORDS SUMMARY | 2019-10-17 10:33 | XMS REPORT | CCD ---
Author Author Renan Byrne D.O. Organization [facility] Address [address] [place] [address] Phone Care Team Providers Care Container Coordinator Name Role Phone Sylvie Byrne D.O., PP Unavailable CCM Unavailable Summary Purpose Interface Exchange Insurance Providers Payer name Policy type / Coverage type Covered libertarian ID Effective Begin Date Effective End Date WPS MEDICARE PART B [place] Medicare Part B [id number] Unknown [facility] [facility] Medicare Part B [id number] Unknown Family History Family History data not found Social History Social History Element Codes Description Effective Dates Tobacco history SNOMED CT: 016307068 Nonsmoker 12/02/2010 Allergies, Adverse Reactions, Alerts Substance [...] Instructions hydroxyzine HCl 25 mg tablet RxNorm: 561759 1 Tablet(s) Oral Q8 H as needed 06/14/2019 06/14/2019 Inactive hydroxyzine HCl 25 mg tablet RxNorm: 772782 1 Tablet(s) Oral Q8 H as needed 06/14/2019 06/13/2019 Inactive prednisone 20 mg tablet RxNorm: 285761 1 Tablet(s) Oral two latonia es a day 05/31/2019 06/05/2019 Inactive Elimite 5 % topical cream RxNorm: 278505 Application To pical QPM from head to toe 05/17/2019 07/16/2019 Active Medrol (Nicholas) 4 mg tablets in a dose pack RxNorm: 440322 6 Tablet(s) Oral QD --then as directed 05/17/2019 05/23/2019 Inactive Osteo Bi-Flex 250 mg-200 mg tablet RxNorm: 479345 2 Tablet(s) O ral QD 01/23/2019 No Stop Date Active clindamycin HCl 300 mg capsule RxNorm: 121594 2 Capsule (s) Oral three times a day 01/23/2019 01/30/2019 Inactive Flagyl 500 mg tablet RxNorm: 766749 1 Tablet(s) PO BID 10/31/2018 Inactive lisinopril 20 mg tablet RxNorm: 806861 1 Tablet(s) PO QD for bl ood pressure 09/13/2018 12/11/2018 Inactive allopurinol 100 mg tablet RxNorm: 832764 1 Tablet(s) PO QD 09/14/19 19 12/11/2018 Inactive Flagyl 500 mg tablet RxNorm: 437688 1 Tablet(s) PO BID 01/18/2018 Inactive Cipro 250 mg tablet RxNorm: 186347 1 Tablet(s) PO BID 01/18/201801/08 Inactive lisinopril 20 mg tablet RxNorm: 455363 1 Tablet(s) PO QD for bl ood pressure 11/06/2017 02/03/2018 Inactive allopurinol 100 mg tablet RxNorm: 278028 1 Tablet(s) PO QD 11/07/19 18 02/03/2018 Inactive allopurinol 100 mg tablet RxNorm: 220875 1 Tablet(s) PO QD 04/11/19 18 10/07/2017 Inactive lisinopril 20 mg tablet RxNorm: 648255 1 Tablet(s) PO QD for bl ood pressure 04/07/2017 11/05/2017 Inactive prednisone 20 mg tablet RxNorm: 725046 2 Tablet(s) PO QD 03/15/2017 1 05/18/2016 Inactive tramadol 50 mg tablet RxNorm: 487288 1-2 Tablet(s) PO TID as needed 03/13/2017 08/06/2017 Inactive Medrol (Nicholas) 4 mg tablets in a dose pack RxNorm: 693620 Tablet(s) PO As Directed 02/28/2017 08/01/2017 Inactive allopurinol 100 mg tablet RxNorm: 259693 1 Tablet(s) PO QD 04/11/19 17 04/11/2017 Inactive lisinopril 20 mg tablet RxNorm: 425953 1 Tablet(s) PO QD for bl ood pressure 04/11/2016 04/07/2017 Inactive pravastatin 20 mg tablet RxNorm: 620336 1 Tablet(s) PO QD 01/13/2016 02/26/2017 Inactive pravastatin 20 mg tablet RxNorm: 866499 TAKE 1 TABLET DAILY 016 01/13/2016 Inactive pravastatin 40 mg tablet RxNorm: 219719 1 Tablet(s) PO QD 03/31/2015 03/31/2015 Inactive pravastatin 20 mg tablet RxNorm: 414055 1 Tablet(s) PO QD 03/31/2015 06/28/2015 Inactive doxycycline hyclate 100 mg capsule RxNorm: 9318051 1 Capsule(s) PO BID 03/31/2015 04/09/2015 Inactive mupirocin 2 % topical ointment RxNorm: 539651 Apply TOP BID to affected lesions 03/31/2015 08/01/2017 Inactive pravastatin 40 mg tablet RxNorm: 133604 1 Tablet(s) PO QD 01/08/2015 03/30/2015 Inactive lisinopril 20 mg tablet RxNorm: 056240 1 Tablet(s) PO QD for bl ood pressure 01/07/2015 12/31/2015 Inactive allopurinol 100 mg tablet RxNorm: 092599 1 Tablet(s) PO QD 01/08/20 15 04/10/2016 Inactive ciprofloxacin 500 mg tablet RxNorm: 637156 1 Tablet(s) PO BID 01/0701/13/2015 Inactive doxycycline hyclate 100 mg capsule RxNorm: 1265951 1 Capsule(s) PO BID 04/15/2014 04/24/2014 Inactive fluoxetine 10 mg capsule RxNorm: 697536 1 Capsule(s) PO QAM 014 04/14/2014 Inactive lisinopril 20 mg tablet RxNorm: 560589 1 Tablet(s) PO QD for bl ood pressure 05/02/2013 04/26/2014 Inactive Cipro 500 mg tablet RxNorm: 430398 1 Tablet(s) PO BID 01/02/201312/10 Inactive Cipro 500 mg tablet RxNorm: 783380 1 Tablet(s) PO BID 01/02/201304/2012 Inactive doxycycline hyclate 100 mg Cap RxNorm: 675212 1 Capsule(s) PO BID 0 10/10/2011 10/19/2011 Inactive Culturelle 10 billion cell Cap RxNorm: 876275 1 Capsule(s) PO BID 0 08/12/2011 09/10/2011 Inactive Colcrys 0.6 mg Tab RxNorm: 780443 1 Tablet(s) PO BID 08/04/201111/30 Inactive allopurinol 100 mg Tab RxNorm: 894548 1 Tablet(s) PO BID 07/13/2011 0 08/03/2011 Inactive clotrimazole-betamethasone 1 %-0.05 % Topical Cream RxNorm: 599872 1 Application TOP BID 06/10/2011 06/23/2011 Inactive clotrimazole-betamethasone 1 %-0.05 % Topical Cream RxNorm: 448074 1 Application TOP BID 05/24/2011 06/06/2011 Inactive Colcrys 0.6 mg Tab RxNorm: 452926 1 Tablet(s) PO BID 05/24/201108/02 Inactive cefdinir 300 mg Cap RxNorm: 348831 1 Capsule(s) PO BID 04/15/2011 Inactive Daypro 600 mg Tab RxNorm: 291405 1 Tablet(s) PO BID 12/15/20102010 Inactive for pain Medrol (Nicholas) 4 mg Tabs in a Dose Pack RxNorm: 356393 Tablet(s) PO 0 12/09/2010 12/15/2010 Inactive as directed Colcrys 0.6 mg Tab RxNorm: 351261 1 Tablet(s) PO BID 12/06/201001/04 Inactive lisinopril-hydrochlorothiazide 20 mg-12.5 mg Tab RxNorm: 197 886 1 Tablet(s) PO QAM 12/02/2010 01/30/2011 Inactive ranitidine 150 mg tablet RxNorm: 0737928 1 Tablet(s) PO BID Pt will phone before filing this script. 04/14/2010 05/13/2010 Inactive allopurinol 100 mg Tab RxNorm: 524838 1 Tablet(s) PO BID 09/16/2009 0 11/14/2009 Inactive lisinopril-hydrochlorothiazide 20 mg-12.5 mg Tab RxNorm: 197 886 1 Tablet(s) PO QAM 06/23/2009 08/31/2009 Inactive ibuprofen 200 mg tablet RxNorm: 818073 4 Tablet(s) PO QAM No Start Da te Active Zithromax Z-Nicholas 250 mg Tab RxNorm: 195935 Tablet(s) PO as direc tenzin No Start Date 01/12/2011 Inactive Ultram Oral RxNorm: Oral No Start Date 01/01/2013 Inactive allopurinol 100 mg tablet RxNorm: 062693 1 Tablet(s) PO QD No Start Date 01/06/2015 Inactive pravastatin 40 mg tablet RxNorm: 759145 1 Tablet(s) PO QD No Start Date 01/07/2015 Inactive Naprosyn 500 mg tablet RxNorm: 801859 1 Tablet(s) PO BID No Start D ate 05/01/2013 Inactive azithromycin 250 mg tablet RxNorm: 519823 2 Tablet(s) P O QD take 2 tablets (500 mg) by oral route once daily for 1 day then 1 tablet (250 mg) by oral route once daily for 4 days No Start Date 01/12/2011 Inactive allopurinol 300 mg Tab RxNorm: 069479 1 Tablet(s) PO QD No Start Da te 01/01/2013 Inactive Colcrys 0.6 mg tablet RxNorm: 032036 1 Tablet(s) PO BID No Start Da te 05/01/2013 Inactive Medrol (Nicholas) 4 mg tablets in a dose pack RxNorm: 158054 Tablet(s) PO As Directed No Start Date 02/27/2017 Inactive hydrocodone 5 mg-acetaminophen 325 mg tablet RxNorm: 734123 1 Tablet(s) PO Q4H as needed for pain No Start Date 12/09/2013 Inactive ranitidine 150 mg Tab RxNorm: 4124424 1 Tablet(s) PO BID No Start D ate 04/13/2010 Inactive Allopurinol 100 mg Tab RxNorm: 406759 1 Tablet(s) PO BID No Start D ate 09/15/2009 Inactive coenzyme Q10 200 mg capsule RxNorm: 203219 1 Capsule(s) PO QD No St art Date 03/30/2015 Inactive Mobic 7.5 mg tablet RxNorm: 823986 1 Tablet(s) PO QD No Start Date Inactive Osteo Bi-Flex (5-Loxin) 1,500 mg-400 unit-100 mg tablet RxNo rm: 1 Tablet(s) PO BID No Start Date 03/30/2015 Inactive hydrocodone-acetaminophen 7.5 mg-325 mg Tab RxNorm: 634440 1-2 Tablet(s) PO Q4-6H No Start Date 08/03/2011 Inactive as needed for pa in Neurontin 300 mg capsule RxNorm: 783758 1 Capsule(s) PO QD No Start Date 12/09/2013 Inactive Medrol (Nicholas) 4 mg Tabs in a Dose Pack RxNorm: 121727 Tablet(s) PO N o Start Date 12/08/2010 Inactive as directed Vitamin D2 1,000 unit capsule RxNorm: 337177 1 Capsule(s) PO QD No Start Date 03/30/2015 Inactive Flexeril 10 mg Tab RxNorm: 575967 1 Tablet(s) PO TID No Start Date Inactive for spasm Medication Administered No Medication Administered data Immunizations No Immunization data Results Observation Observation Code Item Item Code Result Date S ervice Location C DIFF MOL 0252233 C Diff Mol Int Negative 11/02/2018 Unk nown C Diff An 79482575 C Diff Analyzer Indeterminate 9 Unknown GFR CALC 2618810 GFR Non Afr Amr >60 mL/min 11/01/2018 Un known GFR CALC 3250081 GFR Afr Amr >60 mL/min 11/01/[address] LDL 5166635 HDL CHOLESTEROL 46 mg/dL 11/01/[address] LDL 8397855 Cholesterol 198 mg/dL 11/01/[address] LDL Triglyceride 104 mg/dL 11/01/[address] LDL 5420501 LDL Direct 158 mg/dL 11/01/[address] LDL 8670794 NON-HDL Chol 152 mg/dL 11/01/2018 Unkno wn THYROID STIMULATING HORMONE 63927 TSH 1.276 uIU/mL 11/01/2018 Unknown COMPREHENSIVE METABOLIC 79606 AST 22 U/L 2018 Unknown COMPREHENSIVE METABOLIC 39743 ALT 17 U/L 2018 Unknown COMPREHENSIVE METABOLIC 78851 BUN 16 mg/dL 2018 Unknown COMPREHENSIVE METABOLIC 04889 ALBUMIN 4.3 g/dL 2018 Unknown COMPREHENSIVE METABOLIC 27727 CHLORIDE 103 mmol/L 11/01 Unknown COMPREHENSIVE METABOLIC 66256 Bili Total 0.9 mg/dL 11/01 Unknown COMPREHENSIVE METABOLIC 86319 ALK PHOS 62 U/L 2018 Unknown COMPREHENSIVE METABOLIC 03780 SODIUM 138 mmol/L 11/01 Unknown COMPREHENSIVE METABOLIC 60772 CREATININE 0.87 mg/dL 10/09 Unknown COMPREHENSIVE METABOLIC 82239 CALCIUM 9.2 mg/dL 2018 Unknown COMPREHENSIVE METABOLIC 47350 POTASSIUM 4.1 mmol/L 11/01 Unknown COMPREHENSIVE METABOLIC 84620 Total Protein 7.2 g/dL Unknown COMPREHENSIVE METABOLIC 54089 Glucose 81 mg/dL 2018 Unknown COMPREHENSIVE METABOLIC 34794 Bicarbonate 18 mmol/L 10/09 Unknown COMPREHENSIVE METABOLIC 05033 AGAP 17 mmol/L 2018 Unknown COMPLETE BLOOD COUNT 9980875 WBC 8.8 10e9/L 11/02/19 19 Unknown COMPLETE BLOOD COUNT 3865692 RBC 4.54 10e12/L 2018 Unknown COMPLETE BLOOD COUNT 0671825 HEMOGLOBIN 14.4 g/dL 11/02/19 19 Unknown COMPLETE BLOOD COUNT 0411188 HEMATOCRIT 44.0 % 11/02/19 19 Unknown COMPLETE BLOOD COUNT 1452254 MCV 96.9 fL 9 Unknown COMPLETE BLOOD COUNT 5731002 MCH 31.7 pg 9 Unknown COMPLETE BLOOD COUNT 6002391 MCHC 32.7 g/dL 9 Unknown COMPLETE BLOOD COUNT 2378049 PLATELET COUNT 239 10e9/L Unknown COMPLETE BLOOD COUNT 0319145 Mean Plt Volume 10.5 fL Unknown COMPLETE BLOOD COUNT 8529062 NRBC Absolute 0.00 10e9/L Unknown COMPLETE BLOOD COUNT 9909314 Neut Auto 65.2 % 9 Unknown COMPLETE BLOOD COUNT 7943836 NRBC/100 WBC 0.0 2018 Unknown COMPLETE BLOOD COUNT 8506793 Lymph Auto 23.1 % 11/02/19 19 Unknown COMPLETE BLOOD COUNT 5806624 Boundary Auto 9.5 % 9 Unknown COMPLETE BLOOD COUNT 2372401 Eos Auto 1.7 % 9 Unknown COMPLETE BLOOD COUNT 6843318 RDW 12.2 % 9 Unknown COMPLETE BLOOD COUNT 7281368 Baso Auto 0.3 % 9 Unknown COMPLETE BLOOD COUNT 7621502 Neutrophil Abs 5.73 10e9/L Unknown COMPLETE BLOOD COUNT 8569370 Imm Gran Auto 0.2 % 11/01 Unknown COMPLETE BLOOD COUNT 0567657 Lymphocyte Abs 2.03 10e9/L Unknown COMPLETE BLOOD COUNT 9294085 Monocyte Abs 0.84 10e9/L 10/09 Unknown COMPLETE BLOOD COUNT 3991866 Eosinophil Abs 0.15 10e9/L Unknown COMPLETE BLOOD COUNT 8246317 RDW-SD 43.4 fL 9 Unknown COMPLETE BLOOD COUNT 3226688 Basophil Abs 0.03 10e9/L 10/09 Unknown COMPLETE BLOOD COUNT 7941007 Imm Gran Abs 0.02 10e9/L 10/09 Unknown COMPREHENSIVE METABOLIC 43122 AST 17 U/L 2016 Unknown COMPREHENSIVE METABOLIC 02402 ALT 16 U/L 2016 Unknown COMPREHENSIVE METABOLIC 65716 BUN 15 mg/dL 2016 Unknown COMPREHENSIVE METABOLIC 46688 ALBUMIN 4.4 g/dL 2016 Unknown COMPREHENSIVE METABOLIC 36780 CHLORIDE 104 mmol/L 03/29 Unknown COMPREHENSIVE METABOLIC 83394 Bili Total 0.5 mg/dL 03/29 Unknown COMPREHENSIVE METABOLIC 18375 ALK PHOS 56 U/L 2016 Unknown COMPREHENSIVE METABOLIC 49207 SODIUM 139 mmol/L 03/29 Unknown COMPREHENSIVE METABOLIC 82452 CREATININE 0.88 mg/dL 03/11 Unknown COMPREHENSIVE METABOLIC 19221 CALCIUM 9.8 mg/dL 2016 Unknown COMPREHENSIVE METABOLIC 88498 POTASSIUM 4.2 mmol/L 03/29 Unknown COMPREHENSIVE METABOLIC 03799 Total Protein 6.8 g/dL Unknown COMPREHENSIVE METABOLIC 47129 Glucose 100 mg/dL 2016 Unknown COMPREHENSIVE METABOLIC 32904 Bicarbonate 30 mmol/L 03/11 Unknown COMPREHENSIVE METABOLIC 82016 AGAP 5 mmol/L 2016 Unknown THYROID STIMULATING HORMONE 10458 TSH 1.077 uIU/mL 03/29/2017 Unknown URIC ACID 51860 URIC ACID 5.2 mg/dL 03/29/2017 Unknown FREE T4 54284 T4 Free 1.04 ng/dL 03/29/2017 Unknown ERYTHROCYTE SEDIMENTATION RATE 80895 Sed Rate 21 mm/hr 03/29/2017 Unknown COMPLETE BLOOD COUNT 7479421 WBC 5.9 10e9/L 03/29/20 17 Unknown COMPLETE BLOOD COUNT 6052652 RBC 4.52 10e12/L 2016 Unknown COMPLETE BLOOD COUNT 6823869 HEMOGLOBIN 14.6 g/dL 03/29/20 17 Unknown COMPLETE BLOOD COUNT 4270146 HEMATOCRIT 44.7 % 03/29/20 17 Unknown COMPLETE BLOOD COUNT 9295297 MCV 98.9 fL 7 Unknown COMPLETE BLOOD COUNT 6656923 MCH 32.3 pg 7 Unknown COMPLETE BLOOD COUNT 4633110 MCHC 32.7 g/dL 7 Unknown COMPLETE BLOOD COUNT 1714241 PLATELET COUNT 262 10e9/L Unknown COMPLETE BLOOD COUNT 3972556 Mean Plt Volume 10.1 fL Unknown COMPLETE BLOOD COUNT 9923332 Neut Auto 44.2 % 7 Unknown COMPLETE BLOOD COUNT 7202732 Lymph Auto 41.5 % 03/29/20 17 Unknown COMPLETE BLOOD COUNT 6571624 Boundary Auto 11.2 % 7 Unknown COMPLETE BLOOD COUNT 5917209 Eos Auto 2.6 % 7 Unknown COMPLETE BLOOD COUNT 3124129 RDW 12.3 % 7 Unknown COMPLETE BLOOD COUNT 6391284 Baso Auto 0.5 % 7 Unknown COMPLETE BLOOD COUNT 6516232 Neutrophil Abs 2.61 10e9/L Unknown COMPLETE BLOOD COUNT 8335123 Lymphocyte Abs 2.45 10e9/L Unknown COMPLETE BLOOD COUNT 4210244 Monocyte Abs 0.66 10e9/L 03/11 Unknown COMPLETE BLOOD COUNT 3624161 Eosinophil Abs 0.15 10e9/L Unknown COMPLETE BLOOD COUNT 5451993 RDW-SD 43.7 fL 7 Unknown COMPLETE BLOOD COUNT 5703137 Basophil Abs 0.03 10e9/L 03/11 Unknown LIPID GROUP 18433 Cholesterol 248 mg/dL 03/29/2017 Unkno wn LIPID GROUP 80418 Triglyceride 87 mg/dL 03/29/2017 Unkn own LIPID GROUP 23299 HDL CHOLESTEROL 49 mg/dL 03/29/2017 U nknown LIPID GROUP 99309 Chol/HDL Ratio 5.06 ratio 03/29/2017 U nknown LIPID GROUP 41217 NON-HDL Chol 199 mg/dL 03/29/2017 Unkn own LIPID GROUP 43971 LDL Cholesterol 182 mg/dL 03/29/2017 U nknown GFR CALC 9558437 GFR Non Afr Amr >60 mL/min 03/29/2017 Un known GFR CALC 3085957 GFR Afr Amr >60 mL/min 03/29/2017 Unknow n HIV AG/AB 4222458 HIV Ag/Ab Non-Reactive 03/15/2017 Unkno wn VIRAL HEPATITIS PROFILE #2 45614 Hep A IgM Non-Reactive 03/15/2017 Unknown VIRAL HEPATITIS PROFILE #2 97125 Hep B Core IgM Non-Reac tive 03/15/2017 Unknown VIRAL HEPATITIS PROFILE #2 40676 Hepatitis C Ab Non-Reac tive 03/15/2017 Unknown VIRAL HEPATITIS PROFILE #2 39997 Hep Bs Ag Non-Reactive 03/15/2017 Unknown COMPREHENSIVE METABOLIC 32353 AST 23 U/L 2014 Unknown COMPREHENSIVE METABOLIC 18110 ALT 21 IU/L 2014 Unknown COMPREHENSIVE METABOLIC 52973 BUN 13 MG/DL 2014 Unknown COMPREHENSIVE METABOLIC 89164 ALBUMIN 4.3 GM/DL 2014 Unknown COMPREHENSIVE METABOLIC 89411 CHLORIDE 105 MMOL/L 01/07 Unknown COMPREHENSIVE METABOLIC 89230 BILI TOT 0.7 MG/DL 2014 Unknown COMPREHENSIVE METABOLIC 99087 ALK PHOS 51 U/L 2014 Unknown COMPREHENSIVE METABOLIC 01485 SODIUM 139 MMOL/L 01/07 Unknown COMPREHENSIVE METABOLIC 91477 CREATININE 0.85 MG/DL 12/11 Unknown COMPREHENSIVE METABOLIC 36595 CALCIUM 9.5 MG/DL 2014 Unknown COMPREHENSIVE METABOLIC 41146 POTASSIUM 4.4 MMOL/L 01/07 Unknown COMPREHENSIVE METABOLIC 45177 PROT TOT 6.7 GM/DL 2014 Unknown COMPREHENSIVE METABOLIC 08757 Glucose 100 MG/DL 2014 Unknown COMPREHENSIVE METABOLIC 36120 BICARB 27 MMOL/L 2014 Unknown COMPREHENSIVE METABOLIC 18488 ANION GAP 7 MEQ/L 2014 Unknown THYROID STIMULATING HORMONE 15809 TSH 0.900 uIU/ML 01/07/2015 Unknown COMPLETE BLOOD COUNT 9909115 WBC 4.9 10e9/L 01/08/20 15 Unknown COMPLETE BLOOD COUNT 5436810 RBC 4.71 10e12/L 2014 Unknown COMPLETE BLOOD COUNT 1126875 HGB 15.3 g/dL 5 Unknown COMPLETE BLOOD COUNT 8008128 HCT DET 46.1 % 5 Unknown COMPLETE BLOOD COUNT 3117076 MCV 97.9 fL 5 Unknown COMPLETE BLOOD COUNT 7867662 MCH 32.5 pg 5 Unknown COMPLETE BLOOD COUNT 3506964 MCHC 33.2 g/dL 5 Unknown COMPLETE BLOOD COUNT 5712838 PLT 227 10e9/L 01/08/20 15 Unknown COMPLETE BLOOD COUNT 6272068 MPV 10.9 fL 5 Unknown COMPLETE BLOOD COUNT 4621234 VERONIQUE % 53.0 % 5 Unknown COMPLETE BLOOD COUNT 9024318 LY % 35.8 % 5 Unknown COMPLETE BLOOD COUNT 3445312 MON % 8.6 % 5 Unknown COMPLETE BLOOD COUNT 8842893 EOS % 2.2 % 5 Unknown COMPLETE BLOOD COUNT 6121415 BASO % 0.4 % 5 Unknown COMPLETE BLOOD COUNT 7212144 RDW 12.9 % 5 Unknown COMPLETE BLOOD COUNT 1179121 ABS VERONIQUE 2.60 10e9/L 015 Unknown COMPLETE BLOOD COUNT 0005795 ABS LYMPH 1.75 10e9/L 015 Unknown COMPLETE BLOOD COUNT 2817635 ABS MONO 0.42 10e9/L 015 Unknown COMPLETE BLOOD COUNT 1152542 ABS EOS 0.11 10e9/L 015 Unknown COMPLETE BLOOD COUNT 1715361 ABS BASO 0.02 10e9/L 015 Unknown COMPLETE BLOOD COUNT 6578927 RDW-SD 45.7 fL 5 Unknown URIC ACID 08226 URIC ACID 6.7 MG/DL 01/07/2015 Unknown LIPID GROUP 32888 HDL TEST 52 MG/DL 01/07/2015 Unknown LIPID GROUP 82890 TRIG 158 MG/DL 01/07/2015 Unknown LIPID GROUP 67314 TEST LDL 157 MG/DL 01/07/2015 Unknown LIPID GROUP 94476 CHOL 241 MG/DL 01/07/2015 Unknown LIPID GROUP 02675 RCHOL/HDL 4.63 RATIO 01/07/2015 Unknow n LIPID GROUP 06284 NON-HDL CH 189 MG/DL 01/07/2015 Unknow n GFR CALC 5511323 GFR AA >60 ML/MIN 01/07/2015 Unknown GFR CALC 5968427 GFR NON-AA >60 ML/MIN 01/07/2015 Unknown PSA EQUIMOLAR JONATAN 77651 PSA EQ 2.18 NG/ML 5 Unknown FREE T4 74065 FREE T4 1.04 NG/DL 01/07/2015 Unknown GFR CALC 8283099 GFR AA >60 ML/MIN 12/11/2013 Unknown GFR CALC 4506109 GFR NON-AA >60 ML/MIN 12/11/2013 Unknown LIPID GROUP 51773 HDL TEST 54 MG/DL 12/11/2013 Unknown LIPID GROUP 65952 TRIG 81 MG/DL 12/11/2013 Unknown LIPID GROUP 27038 TEST LDL 185 MG/DL 12/11/2013 Unknown LIPID GROUP 41163 CHOL 255 MG/DL 12/11/2013 Unknown LIPID GROUP 49242 RCHOL/HDL 4.72 RATIO 12/11/2013 Unknow n LIPID GROUP 89555 NON-HDL CH 201 MG/DL 12/11/2013 Unknow n URIC ACID 73101 URIC ACID 7.1 MG/DL 12/11/2013 Unknown PSA EQUIMOLAR JONATAN 92561 PSA EQ 3.80 NG/ML 4 Unknown COMPLETE BLOOD COUNT 6264724 WBC 5.9 10e9/L 12/12/19 14 Unknown COMPLETE BLOOD COUNT 7046995 RBC 4.40 10e12/L 2013 Unknown COMPLETE BLOOD COUNT 5415865 HGB 14.5 g/dL 4 Unknown COMPLETE BLOOD COUNT 2507395 HCT DET 43.6 % 4 Unknown COMPLETE BLOOD COUNT 3449308 MCV 99.1 fL 4 Unknown COMPLETE BLOOD COUNT 9423917 MCH 33.0 pg 4 Unknown COMPLETE BLOOD COUNT 8033956 MCHC 33.3 g/dL 4 Unknown COMPLETE BLOOD COUNT 7579298 PLT 289 10e9/L 12/12/19 14 Unknown COMPLETE BLOOD COUNT 8702752 MPV 10.2 fL 4 Unknown COMPLETE BLOOD COUNT 8850010 VERONIQUE % 47.9 % 4 Unknown COMPLETE BLOOD COUNT 3292445 LY % 40.6 % 4 Unknown COMPLETE BLOOD COUNT 0873624 MON % 8.8 % 4 Unknown COMPLETE BLOOD COUNT 5289537 EOS % 2.2 % 4 Unknown COMPLETE BLOOD COUNT 5992364 BASO % 0.5 % 4 Unknown COMPLETE BLOOD COUNT 0769129 RDW 12.9 % 4 Unknown COMPLETE BLOOD COUNT 9436528 ABS VERONIQUE 2.83 10e9/L 014 Unknown COMPLETE BLOOD COUNT 4241983 ABS LYMPH 2.40 10e9/L 014 Unknown COMPLETE BLOOD COUNT 1723905 ABS MONO 0.52 10e9/L 014 Unknown COMPLETE BLOOD COUNT 0729268 ABS EOS 0.13 10e9/L 014 Unknown COMPLETE BLOOD COUNT 2127813 ABS BASO 0.03 10e9/L 014 Unknown COMPLETE BLOOD COUNT 8357144 RDW-SD 45.7 fL 4 Unknown THYROID STIMULATING HORMONE 58578 TSH 1.013 uIU/ML 12/11/2013 Unknown COMPREHENSIVE METABOLIC 30961 AST 20 U/L 2013 Unknown COMPREHENSIVE METABOLIC 21808 ALT 16 IU/L 2013 Unknown COMPREHENSIVE METABOLIC 71852 BUN 17 MG/DL 2013 Unknown COMPREHENSIVE METABOLIC 01050 ALBUMIN 4.6 GM/DL 2013 Unknown COMPREHENSIVE METABOLIC 14196 CHLORIDE 107 MMOL/L 12/11 Unknown COMPREHENSIVE METABOLIC 21123 BILI TOT 0.7 MG/DL 2013 Unknown COMPREHENSIVE METABOLIC 47072 ALK PHOS 53 U/L 2013 Unknown COMPREHENSIVE METABOLIC 69523 SODIUM 140 MMOL/L 12/11 Unknown COMPREHENSIVE METABOLIC 37006 CREATININE 0.84 MG/DL 06/2013 Unknown COMPREHENSIVE METABOLIC 70859 CALCIUM 9.7 MG/DL 2013 Unknown COMPREHENSIVE METABOLIC 11791 POTASSIUM 4.6 MMOL/L 12/11 Unknown COMPREHENSIVE METABOLIC 71789 PROT TOT 6.9 GM/DL 2013 Unknown COMPREHENSIVE METABOLIC 57535 Glucose 97 MG/DL 2013 Unknown COMPREHENSIVE METABOLIC 53443 BICARB 25 MMOL/L 2013 Unknown COMPREHENSIVE METABOLIC 73724 ANION GAP 8 MEQ/L 2013 Unknown FREE T4 47610 FREE T4 1.11 NG/DL 12/11/2013 Unknown ASSAY OF CREATININE 97149 CREATININE 0.98 MG/DL 09/15/19 12 Unknown URIC ACID 97633 URIC ACID 4.9 MG/DL 09/15/2011 Unknown GFR CALC 4555896 GFR AA >60 ML/MIN 09/15/2011 Unknown GFR CALC 1036631 GFR NON-AA >60 ML/MIN 09/15/2011 Unknown THYROID STIMULATING HORMONE 39617 TSH 1.687 uIU/ML 08/01/2011 Unknown FREE T4 52953 FREE T4 0.96 NG/DL 08/01/2011 Unknown SJOGRENS 3062812 SJOGRN A <20 EU/ML 08/01/2011 Unknown SJOGRENS 7704991 SJOGRN B <20 EU/ML 08/01/2011 Unknown SJOGRENS 7233115 NONHIS INT SEE BELO 08/01/2011 Unknown THYRO PERX 5117807 THYRO PERX 175.34 UNITS 07/30/2011 Unkn own DNA AB 5840317 DNA AB 32 IU/ML 07/29/2011 Unknown TITER WENDI 0472130 TITR WENDI 1:160 07/29/2011 Unknown TITER WENDI 5106869 PATTERN NUCLEOLR 07/29/2011 Unknown ANTINUCLEAR ANTIBODY SCREEN 84300 WENDI SCR POSITIVE Unknown COMPREHENSIVE METABOLIC 62087 AST 23 U/L 2011 Unknown COMPREHENSIVE METABOLIC 48195 ALT 26 IU/L 2011 Unknown COMPREHENSIVE METABOLIC 15536 BUN 18 MG/DL 2011 Unknown COMPREHENSIVE METABOLIC 11317 ALBUMIN 4.6 GM/DL 2011 Unknown COMPREHENSIVE METABOLIC 44329 CHLORIDE 105 MMOL/L 07/27 Unknown COMPREHENSIVE METABOLIC 95916 BILI TOT 0.5 MG/DL 2011 Unknown COMPREHENSIVE METABOLIC 91362 ALK PHOS 63 U/L 2011 Unknown COMPREHENSIVE METABOLIC 23022 SODIUM 138 MMOL/L 07/27 Unknown COMPREHENSIVE METABOLIC 36684 CREATININE 0.92 MG/DL 07/09 Unknown COMPREHENSIVE METABOLIC 95476 CALCIUM 9.4 MG/DL 2011 Unknown COMPREHENSIVE METABOLIC 81869 POTASSIUM 3.9 MMOL/L 07/27 Unknown COMPREHENSIVE METABOLIC 71515 PROT TOT 6.7 GM/DL 2011 Unknown COMPREHENSIVE METABOLIC 26203 Glucose 101 MG/DL 2011 Unknown COMPREHENSIVE METABOLIC 14490 BICARB 24 MMOL/L 2011 Unknown COMPREHENSIVE METABOLIC 24704 ANION GAP 9 MEQ/L 2011 Unknown GFR CALC 0794976 GFR AA >60 ML/MIN 07/28/2011 Unknown GFR CALC 1862696 GFR NON-AA >60 ML/MIN 07/28/2011 Unknown ERYTHROCYTE SEDIMENTATION RATE 30331 ESR 2 MM/HR 07/28/2011 Unknown URIC ACID 27886 URIC ACID 5.8 MG/DL 07/28/2011 Unknown C-REACTIVE PROTEIN (CRP) QUANT 51731 CRP 0.2 MG/DL 07/28/2011 Unknown TITER WENDI 8379794 TITR WENDI 1:160 05/26/2011 Unknown TITER WENDI [id number] PATTERN NUCLEOLR 05/26/2011 Unknown RA FACTOR 86034 RA FACTOR <20.0 IU/ML 05/26/2011 Unknown ANTINUCLEAR ANTIBODY SCREEN 73204 WENDI SCR POSITIVE Unknown URIC ACID 43468 URIC ACID 8.7 MG/DL 05/25/2011 Unknown PSA EQUIMOLAR JONATAN 53822 PSA EQ 2.79 NG/ML 2 Unknown LIPID GROUP 89194 HDL TEST 47 MG/DL 05/25/2011 Unknown LIPID GROUP 97318 TRIG 198 MG/DL 05/25/2011 Unknown LIPID GROUP 90402 TEST LDL 180 MG/DL 05/25/2011 Unknown LIPID GROUP 42123 CHOL 267 MG/DL 05/25/2011 Unknown LIPID GROUP 11815 RCHOL/HDL 5.68 RATIO 05/25/2011 Unknow n COMPREHENSIVE METABOLIC 46734 AST 21 U/L 2011 Unknown COMPREHENSIVE METABOLIC 36458 ALT 21 IU/L 2011 Unknown COMPREHENSIVE METABOLIC 14215 BUN 16 MG/DL 2011 Unknown COMPREHENSIVE METABOLIC 26059 ALBUMIN 4.4 GM/DL 2011 Unknown COMPREHENSIVE METABOLIC 79284 CHLORIDE 105 MMOL/L 05/25 Unknown COMPREHENSIVE METABOLIC 70282 BILI TOT 0.7 MG/DL 2011 Unknown COMPREHENSIVE METABOLIC 68079 ALK PHOS 60 U/L 2011 Unknown COMPREHENSIVE METABOLIC 37690 SODIUM 139 MMOL/L 05/25 Unknown COMPREHENSIVE METABOLIC 42237 CREATININE 0.92 MG/DL 05/11 Unknown COMPREHENSIVE METABOLIC 10324 CALCIUM 9.4 MG/DL 2011 Unknown COMPREHENSIVE METABOLIC 07824 POTASSIUM 4.1 MMOL/L 05/25 Unknown COMPREHENSIVE METABOLIC 02528 PROT TOT 7.0 GM/DL 2011 Unknown COMPREHENSIVE METABOLIC 81008 Glucose 108 MG/DL 2011 Unknown COMPREHENSIVE METABOLIC 88965 BICARB 25 MMOL/L 2011 Unknown COMPREHENSIVE METABOLIC 57013 ANION GAP 9 MEQ/L 2011 Unknown GFR CALC [id number] GFR AA >60 ML/MIN 05/25/2011 Unknown GFR CALC 0554309 GFR NON-AA >60 ML/MIN 05/25/2011 Unknown COMPLETE BLOOD COUNT 13101 WBC 5.6 10e9/L 05/25/19 12 Unknown COMPLETE BLOOD COUNT 28448 RBC 5.01 10e12/L 2011 Unknown COMPLETE BLOOD COUNT 04324 HGB 15.8 g/dL 2 Unknown COMPLETE BLOOD COUNT 97719 HCT DET 46.1 % 2 Unknown COMPLETE BLOOD COUNT 12382 MCV 92.0 fL 2 Unknown COMPLETE BLOOD COUNT 66807 MCH 31.5 pg 2 Unknown COMPLETE BLOOD COUNT 11406 MCHC 34.3 g/dL 2 Unknown COMPLETE BLOOD COUNT 54810 PLT 246 10e9/L 05/25/19 12 Unknown COMPLETE BLOOD COUNT 02743 MPV 10.3 fL 2 Unknown COMPLETE BLOOD COUNT 59882 VERONIQUE % 47.1 % 2 Unknown COMPLETE BLOOD COUNT 38130 LY % 41.0 % 2 Unknown COMPLETE BLOOD COUNT 50157 MON % 8.9 % 2 Unknown COMPLETE BLOOD COUNT 69310 EOS % 2.5 % 2 Unknown COMPLETE BLOOD COUNT 47579 BASO % 0.5 % 2 Unknown COMPLETE BLOOD COUNT 31665 RDW 12.7 % 2 Unknown COMPLETE BLOOD COUNT 22748 ABS VERONIQUE 2.64 10e9/L 012 Unknown COMPLETE BLOOD COUNT 33576 ABS LYMPH 2.30 10e9/L 012 Unknown COMPLETE BLOOD COUNT 94735 ABS MONO 0.50 10e9/L 012 Unknown COMPLETE BLOOD COUNT 08030 ABS EOS 0.14 10e9/L 012 Unknown COMPLETE BLOOD COUNT 65568 ABS BASO 0.03 10e9/L 012 Unknown COMPLETE BLOOD COUNT 97699 RDW-SD 41.3 fL 2 Unknown COMPREHENSIVE METABOLIC 71984 AST 18 U/L 2010 Unknown COMPREHENSIVE METABOLIC 35495 ALT 14 IU/L 2010 Unknown COMPREHENSIVE METABOLIC 35985 BUN 12 MG/DL 2010 Unknown COMPREHENSIVE METABOLIC 62543 ALBUMIN 4.6 GM/DL 2010 Unknown COMPREHENSIVE METABOLIC 43607 CHLORIDE 102 MMOL/L 02/01 Unknown COMPREHENSIVE METABOLIC 86379 BILI TOT 0.6 MG/DL 2010 Unknown COMPREHENSIVE METABOLIC 26511 ALK PHOS 66 U/L 2010 Unknown COMPREHENSIVE METABOLIC 94206 SODIUM 139 MMOL/L 02/01 Unknown COMPREHENSIVE METABOLIC 36478 CREATININE 0.92 MG/DL 01/09 Unknown COMPREHENSIVE METABOLIC 86748 CALCIUM 9.8 MG/DL 2010 Unknown COMPREHENSIVE METABOLIC 89024 POTASSIUM 4.1 MMOL/L 02/01 Unknown COMPREHENSIVE METABOLIC 23535 PROT TOT 7.0 GM/DL 2010 Unknown COMPREHENSIVE METABOLIC 71958 Glucose 101 MG/DL 2010 Unknown COMPREHENSIVE METABOLIC 88361 BICARB 25 MMOL/L 2010 Unknown COMPREHENSIVE METABOLIC 90198 ANION GAP 12 MEQ/L 2010 Unknown GFR CALC [id number] GFR AA >60 ML/MIN 02/01/2011 Unknown GFR CALC [id number] GFR NON-AA >60 ML/MIN 02/01/2011 Unknown LIPID GROUP 63388 HDL TEST 44 MG/DL 02/01/2011 Unknown LIPID GROUP 52094 TRIG 157 MG/DL 02/01/2011 Unknown LIPID GROUP 87887 TEST LDL 193 MG/DL 02/01/2011 Unknown LIPID GROUP 43287 CHOL 268 MG/DL 02/01/2011 Unknown LIPID GROUP 27386 RCHOL/HDL 6.09 RATIO 02/01/2011 Unknow n FREE T4 92413 FREE T4 1.04 NG/DL 02/01/2011 Unknown COMPLETE BLOOD COUNT 80720 WBC 6.4 10e9/L 02/02/20 11 Unknown COMPLETE BLOOD COUNT 71745 RBC 4.56 10e12/L 2010 Unknown COMPLETE BLOOD COUNT 52118 HGB 14.4 g/dL 1 Unknown COMPLETE BLOOD COUNT 22723 HCT DET 43.0 % 1 Unknown COMPLETE BLOOD COUNT 74580 MCV 94.3 fL 1 Unknown COMPLETE BLOOD COUNT 25310 MCH 31.6 pg 1 Unknown COMPLETE BLOOD COUNT 24578 MCHC 33.5 g/dL 1 Unknown COMPLETE BLOOD COUNT 21761 PLT 300 10e9/L 02/02/20 11 Unknown COMPLETE BLOOD COUNT 44072 MPV 9.9 fL 1 Unknown COMPLETE BLOOD COUNT 38840 VERONIQUE % 38.5 % 1 Unknown COMPLETE BLOOD COUNT 95700 LY % 49.1 % 1 Unknown COMPLETE BLOOD COUNT 31967 MON % 10.1 % 1 Unknown COMPLETE BLOOD COUNT 07442 EOS % 1.7 % 1 Unknown COMPLETE BLOOD COUNT 55589 BASO % 0.6 % 1 Unknown COMPLETE BLOOD COUNT 90052 RDW 15.1 % 1 Unknown COMPLETE BLOOD COUNT 15840 ABS VERONIQUE 2.46 10e9/L 011 Unknown COMPLETE BLOOD COUNT 31740 ABS LYMPH 3.14 10e9/L 011 Unknown COMPLETE BLOOD COUNT 75385 ABS MONO 0.65 10e9/L 011 Unknown COMPLETE BLOOD COUNT 68470 ABS EOS 0.11 10e9/L 011 Unknown COMPLETE BLOOD COUNT 29688 ABS BASO 0.04 10e9/L 011 Unknown COMPLETE BLOOD COUNT 17330 RDW-SD 50.6 fL 1 Unknown THYROID STIMULATING HORMONE 65341 TSH 1.128 uIU/ML 02/01/2011 Unknown PSA EQUIMOLAR JONATAN 47447 PSA EQ 3.83 NG/ML 1 Unknown VCA AB G/M 1220726 EBV G VCA 3.34 12/03/2010 Unknown VCA AB G/M 2634140 EBV M VCA 0.12 12/03/2010 Unknown EB GARY AG [id number] EB GARY AG 0.47 12/03/2010 Unknown EB NUCL AB [id number] EB NUCL AB 3.72 12/03/2010 Unknown COMPLETE BLOOD COUNT 24801 WBC 8.0 10e9/L 12/03/19 11 Unknown COMPLETE BLOOD COUNT 45898 RBC 4.93 10e12/L 2010 Unknown COMPLETE BLOOD COUNT 82407 HGB 15.7 g/dL 1 Unknown COMPLETE BLOOD COUNT 20896 HCT DET 45.4 % 1 Unknown COMPLETE BLOOD COUNT 81969 MCV 92.1 fL 1 Unknown COMPLETE BLOOD COUNT 22510 MCH 31.8 pg 1 Unknown COMPLETE BLOOD COUNT 16289 MCHC 34.6 g/dL 1 Unknown COMPLETE BLOOD COUNT 54171 PLT 248 10e9/L 12/03/19 11 Unknown COMPLETE BLOOD COUNT 58463 MPV 10.4 fL 1 Unknown COMPLETE BLOOD COUNT 60341 VERONIQUE % 74.0 % 1 Unknown COMPLETE BLOOD COUNT 04306 LY % 19.6 % 1 Unknown COMPLETE BLOOD COUNT 00649 MON % 5.2 % 1 Unknown COMPLETE BLOOD COUNT 58581 EOS % 1.1 % 1 Unknown COMPLETE BLOOD COUNT 02114 BASO % 0.1 % 1 Unknown COMPLETE BLOOD COUNT 90327 RDW 12.5 % 1 Unknown COMPLETE BLOOD COUNT 46152 ABS VERONIQUE 5.92 10e9/L 011 Unknown COMPLETE BLOOD COUNT 18028 ABS LYMPH 1.57 10e9/L 011 Unknown COMPLETE BLOOD COUNT 71878 ABS MONO 0.42 10e9/L 011 Unknown COMPLETE BLOOD COUNT 19839 ABS EOS 0.09 10e9/L 011 Unknown COMPLETE BLOOD COUNT 58350 ABS BASO 0.01 10e9/L 011 Unknown COMPLETE BLOOD COUNT 88967 RDW-SD 41.1 fL 1 Unknown URIC ACID 94125 URIC ACID 9.3 MG/DL 12/02/2010 Unknown Procedures Procedure Codes Date DEXAMETHASONE SODIUM PHOS CPT-4: J1100 05/31/2019 THER/PROPH/DIAG INJ SC/IM CPT-4: 34948 05/31/2019 THER/PROPH/DIAG INJ SC/IM CPT-4: 57360 05/17/2019 TRIAMCINOLONE ACET INJ NOS CPT-4: J3301 05/17/2019 DRAINAGE OF SKIN ABSCESS CPT-4: 95788 01/23/2019 AEROBIC WOUND CULTURE & STN CPT-4: 11589 01/23/2019 ROUTINE VENIPUNCTURE CPT-4: 27639 03/29/2017 ASSAY THYROID STIM HORMONE CPT-4: 65495 03/29/2017 ASSAY OF FREE THYROXINE CPT-4: 99376 03/29/2017 COMPREHEN METABOLIC PANEL CPT-4: 23234 03/29/2017 COMPLETE CBC W/AUTO DIFF WBC CPT-4: 40585 03/29/2017 LIPID PANEL CPT-4: 35680 03/29/2017 ASSAY OF BLOOD/URIC ACID CPT-4: 18792 03/29/2017 RBC SED RATE AUTOMATED CPT-4: 66449 03/29/2017 ROUTINE VENIPUNCTURE CPT-4: 93476 03/15/2017 ACUTE HEPATITIS PANEL CPT-4: 62080 03/15/2017 HIV-1/HIV-2 1 RESULT ANTBDY CPT-4: 98209 03/15/2017 EXC TR-EXT B9+SHASHA 0.5 CM< CPT-4: 82590 03/15/2017 EXC TR-EXT B9+SHASHA 1.1-2 CM CPT-4: 11648 03/15/2017 URINALYSIS NONAUTO W/O SCOPE CPT-4: 82146 01/07/2015 URINE CULTURE/ COLONY COUNT CPT-4: 34912 01/07/2015 ROUTINE VENIPUNCTURE CPT-4: 32632 01/07/2015 ASSAY OF FREE THYROXINE CPT-4: 71881 01/07/2015 ASSAY THYROID STIM HORMONE CPT-4: 43284 01/07/2015 COMPREHEN METABOLIC PANEL CPT-4: 63882 01/07/2015 COMPLETE CBC W/AUTO DIFF WBC CPT-4: 25226 01/07/2015 LIPID PANEL CPT-4: 20626 01/07/2015 ASSAY OF PSA TOTAL CPT-4: 89414 01/07/2015 ASSAY OF BLOOD/URIC ACID CPT-4: 87588 01/07/2015 ROUTINE VENIPUNCTURE CPT-4: 41370 12/11/2013 ASSAY OF FREE THYROXINE CPT-4: 89271 12/11/2013 ASSAY THYROID STIM HORMONE CPT-4: 26350 12/11/2013 COMPREHEN METABOLIC PANEL CPT-4: 91214 12/11/2013 COMPLETE CBC W/AUTO DIFF WBC CPT-4: 92249 12/11/2013 LIPID PANEL CPT-4: 16760 12/11/2013 ASSAY OF BLOOD/URIC ACID CPT-4: 23135 12/11/2013 ASSAY OF PSA TOTAL CPT-4: 93017 12/11/2013 URINE CULTURE/ COLONY COUNT CPT-4: 90771 01/02/2013 AEROBIC WOUND CULTURE & STN CPT-4: 70290 10/10/2011 DRAINAGE OF SKIN ABSCESS CPT-4: 69330 10/10/2011 ASSAY OF CREATININE CPT-4: 96186 09/15/2011 ASSAY OF BLOOD/URIC ACID CPT-4: 32914 09/15/2011 ROUTINE VENIPUNCTURE CPT-4: 77130 07/28/2011 ANTINUCLEAR ANTIBODIES CPT-4: 89182 07/28/2011 RBC SED RATE AUTOMATED CPT-4: 75242 07/28/2011 ASSAY OF BLOOD/URIC ACID CPT-4: 54043 07/28/2011 COMPREHEN METABOLIC PANEL CPT-4: 07590 07/28/2011 C-REACTIVE PROTEIN CPT-4: 42397 07/28/2011 THYRO PERX CPT-4: 3470838 07/28/2011 DNA AB CPT-4: 3205972 07/28/2011 SJOGRENS CPT-4: 4171087 07/28/2011 ASSAY OF FREE THYROXINE CPT-4: 04625 07/28/2011 ASSAY THYROID STIM HORMONE CPT-4: 84420 07/28/2011 ROUTINE VENIPUNCTURE CPT-4: 37858 05/25/2011 COMPREHEN METABOLIC PANEL CPT-4: 21991 05/25/2011 COMPLETE CBC W/AUTO DIFF WBC CPT-4: 84081 05/25/2011 ANTINUCLEAR ANTIBODIES CPT-4: 85618 05/25/2011 RHEUMATOID FACTOR QUANT CPT-4: 84761 05/25/2011 ASSAY OF PSA TOTAL CPT-4: 67686 05/25/2011 ASSAY OF BLOOD/URIC ACID CPT-4: 93106 05/25/2011 LIPID PANEL CPT-4: 92116 05/25/2011 ROUTINE VENIPUNCTURE CPT-4: 73684 02/01/2011 ASSAY OF FREE THYROXINE CPT-4: 72296 02/01/2011 ASSAY THYROID STIM HORMONE CPT-4: 59834 02/01/2011 COMPREHEN METABOLIC PANEL CPT-4: 29361 02/01/2011 COMPLETE CBC W/AUTO DIFF WBC CPT-4: 48113 02/01/2011 LIPID PANEL CPT-4: 49358 02/01/2011 ASSAY OF PSA TOTAL CPT-4: 33260 02/01/2011 ROUTINE VENIPUNCTURE CPT-4: 13404 12/02/2010 ASSAY OF BLOOD/URIC ACID CPT-4: 03823 12/02/2010 EB VIRUS VCA G/M + EBNA + EA CPT-4: 28991|04342 x 2|10254 COMPLETE CBC W/AUTO DIFF WBC CPT-4: 44156 12/02/2010 COMPREHEN METABOLIC PANEL CPT-4: 71518 09/14/2009 ASSAY OF BLOOD/URIC ACID CPT-4: 39725 09/14/2009 ROUTINE VENIPUNCTURE CPT-4: 77660 09/14/2009 URINALYSIS NONAUTO W/O SCOPE CPT-4: 28602 09/01/2009 Vital Signs Date Vital 05/31/2019 Blood [...] 1: 118/64 Code: 8480-6 BMI: 29.7 Code: 25889-9 Heart Rate 1: 100 bpm Height: 5'6" Respiratory Rate: 22 bpm SpO2: 95% Tempera ture: 36.7 (C) / 98.0 (F) Weight: 187 lbs 02/27/2017 Blood Pressure 1: 132/76 Code: 8480-6 BMI: 30.8 Code: 78402-0 Heart Rate 1: 96 bpm Height: 5'6" Respiratory Rate: 22 bpm SpO2: 98% Tempera ture: 36.6 (C) / 97.8 (F) Weight: 194 lbs 03/31/2015 Blood Pressure 1: 128/90 Code: 8480-6 Heart Rate 1: 88 bpm Respiratory Rate: 20 bpm Temperature: 36.9 (C) / 98.4 (F) Weight: 192 lbs 01/07/2015 Blood Pressure 1: 132/80 Code: 8480-6 BMI: 30.2 Code: 36271-6 Heart Rate 1: 78 bpm Height: 5'6" Respiratory Rate: 22 bpm Temperature: 36 .7 (C) / 98.1 (F) Weight: 190 lbs 04/15/2014 Blood Pressure 1: 136/88 Code: 8480-6 BMI: 31.0 Code: 12445-8 Heart Rate 1: 84 bpm Height: 5'6" Respiratory Rate: 20 bpm Temperature: 36 .1 (C) / 97.0 (F) Weight: 192 lbs 12/10/2013 Blood Pressure 1: 142/90 Code: 8480-6 BMI: 29.1 Code: 91888-0 Heart Rate 1: 72 bpm Height: 5'7" Respiratory Rate: 20 bpm Temperature: 36 .6 (C) / 97.8 (F) Weight: 186 lbs 05/02/2013 Blood Pressure 1: 146/96 Code: 8480-6 BMI: 30.5 Code: 86415-3 Heart Rate 1: 88 bpm Height: 5'7" Respiratory Rate: 20 bpm Temperature: 37 .0 (C) / 98.6 (F) Weight: 195 lbs 01/02/2013 Blood Pressure 1: 132/84 Code: 8480-6 BMI: 30.2 Code: 08707-1 Heart Rate 1: 80 bpm Height: 5'7" Respiratory Rate: 20 bpm Temperature: 36 .9 (C) / 98.4 (F) Weight: 193 lbs 10/10/2011 Blood Pressure 1: 122/68 Code: 8480-6 BMI: 35.7 Code: 11771-8 Heart Rate 1: 84 bpm Height: 5'2" Temperature: 36.9 (C) / 98.5 (F) Weight: 195 lbs 08/12/2011 Blood Pressure 1: 110/80 Code: 8480-6 BMI: 36.9 Code: 09794-0 Heart Rate 1: 80 bpm Height: 5'2" Temperature: 36.4 (C) / 97.6 (F) Weight: 202 lbs 08/04/2011 Blood Pressure 1: 126/80 Code: 8480-6 BMI: 37.9 Code: 65040-5 Heart Rate 1: 76 bpm Height: 5'2" Respiratory Rate: 20 bpm Temperature: 37 .0 (C) / 98.6 (F) Weight: 207 lbs 05/24/2011 Blood Pressure 1: 122/82 Code: 8480-6 BMI: 37.7 Code: 45662-6 Heart Rate 1: 68 bpm Height: 5'2" Temperature: 36.7 (C) / 98.1 (F) Weight: 206 lbs 04/15/2011 Blood Pressure 1: 128/82 Code: 8480-6 BMI: 37.1 Code: 47430-5 Heart Rate 1: 68 bpm Height: 5'2" [...] 1: 106/62 Code: 8480-6 BMI: 36.8 Code: 12560-9 Heart Rate 1: 90 bpm Height: 5'2" SpO2: 94% Temperature: 36.4 (C) / 97.6 (F) Weight: 201 lbs 12/02/2010 Blood Pressure 1: 142/90 Code: 8480-6 BMI: 36.8 Code: 59204-2 Heart Rate 1: 96 bpm Height: 5'2" [...] success Encounters Encounter Performer Location Codes Date ([id number]) OFFICE/OUTPATIENT VISIT EST Diagnosis: Acute contact dermatitis[ICD10: L25.9] Azra BYRNE [employer] [facility] CPT-4: 23699 05/31/2019 ([id number]) OFFICE/OUTPATIENT VISIT EST Diagnosis: Acute contact dermatitis[ICD10: L25.9] Diagnosis: Acute sinusitis[ICD10: J01.90] Sylvie Santoroashwini SAINZ Sammi BYRNE [employer] [facility] CPT-4: 12605 05/17/2019 ([id number]) OFFICE/OUTPATIENT VISIT EST Diagnosis: Acute gastritis without bleeding[ICD10: K29.00] Diagnosis: Essential (primary) hypertension[ICD10: I10] Diagnosis: Hyperlipidemia, unspecified[ICD10: E78.5] Azra BYRNE [employer] [facility] CPT-4: 52920 10/31/2018 ([id number]) OFFICE/OUTPATIENT VISIT EST Diagnosis: Acute gastritis without bleeding[ICD10: K29.00] Azra BYRNE [employer] [facility] CPT-4: 45686 01/18/2018 ([id number]) OFFICE/OUTPATIENT VISIT EST Diagnosis: Hyperlipidemia, unspecified[ICD10: E78.5] Diagnosis: Essential (primary) hypertension[ICD10: I10] Diagnosis: Weakness[ICD10: R53.1] Diagnosis: Sebaceous cyst[ICD10: L72.3] Diagnosis: Idiopathic gout, unspecified site[ICD10: M10.00] Sylvie SAINZ Alan BYRNE [employer] [facility] CPT-4: 51683 03/29/2017 OFFICE/OUTPATIENT VISIT EST Diagnosis: Pain in right knee[ICD10: M25.561] Azra THOMAS AIDEE Alan BYRNE [employer] [facility] CPT-4: 57822 03/13/2017 OFFICE/OUTPATIENT VISIT EST Diagnosis: Pain in right leg[ICD10: M79.604] Diagnosis: Sebaceous cyst[ICD10: L72.3] Azra WILSONLINE SammiFrancisco AGAPITO [employer] [facility] CPT-4: 58076 02/27/2017 OFFICE/OUTPATIENT VISIT EST Diagnosis: Local infection of the skin and subcutaneous tissue, unspecified[ICD10: L08.9] Diagnosis: Essential (primary) hypertension[ICD10: I10] Diagnosis: Hyperlipidemia, unspecified[ICD10: E78.5] Dagmar BYRNE [facility] CPT-4: 87481 03/31/2015 ([id number]) PREV VISIT EST AGE 40-64 Diagnosis: History of chest pain[ICD9: V13.89] Diagnosis: Right flank pain[ICD9: 789.09] Diagnosis: ROUTINE MEDICAL EXAM[ICD9: V70.0] Diagnosis: HYPERTENSION[ICD9: 401.9] Diagnosis: HYPERLIPIDEMIA NEC/NOS[ICD9: 272.4] Diagnosis: Colon polyps[ICD9: 211.3] Diagnosis: HEMATURIA NOS[ICD9: 599.70] Dagmar BYRNE [facility] CPT-4: 13591 01/07/2015 OFFICE/OUTPATIENT VISIT EST Diagnosis: COUGH[ICD9: 786.2] Diagnosis: Rectal itching[ICD9: 698.0] [facility] 76891 04/15/2014 ([id number]) OFFICE/OUTPATIENT VISIT EST Diagnosis: ROUTINE MEDICAL EXAM[ICD9: V70.0] Diagnosis: GOUT[ICD9: 274.9] Diagnosis: HYPERLIPIDEMIA NEC/NOS[ICD9: 272.4] Diagnosis: HYPERTENSION[ICD9: 401.9] Sylvie SILVERIO [facility] CPT-4: 61152 12/11/2013 ([id number]) OFFICE/OUTPATIENT VISIT EST Diagnosis: Shingles[ICD9: 053.9] Sylvie BYRNE [facility] CPT-4: 46680 12/10/2013 ([id number]) OFFICE/OUTPATIENT VISIT EST Diagnosis: HYPERTENSION[ICD9: 401.9] Diagnosis: Colon polyps[ICD9: 211.3] Diagnosis: Stress reaction[ICD9: 308.9] [facility]: 61650 05/02/2013 ([id number]) OFFICE/OUTPATIENT VISIT EST Diagnosis: URINARY TRACT INFECTION[ICD9: 599.0] Sylvie BYRNE [facility] CPT-4: 79315 01/02/2013 OFFICE/OUTPATIENT VISIT EST Diagnosis: CELLULITIS OF TRUNK[ICD9: 682.2] Diagnosis: SPRAIN SHOULDER/ARM[ICD9: 840.9] Liza BYRNE [facility] CPT-4: 62934 10/10/2011 ([id number]) OFFICE/OUTPATIENT VISIT EST Diagnosis: GOUT[ICD9: 274.9] Sylvie BYRNE [facility] CPT-4: 97984 09/15/2011 OFFICE/OUTPATIENT VISIT EST Diagnosis: DIARRHEA[ICD9: 787.91] Sylvie Cagle [facility] CPT-4: 23590 08/12/2011 ([id number]) OFFICE/OUTPATIENT VISIT EST Diagnosis: GOUT[ICD9: 274.9] Diagnosis: Positive WENDI (antinuclear antibody)[ICD9: 795.79] Sylvie BYRNE [facility] CPT-4: 03763 08/04/2011 OFFICE/OUTPATIENT VISIT EST Diagnosis: Rash[ICD9: 782.1] Diagnosis: Joint pain[ICD9: 719.40] Diagnosis: Hyperlipidemia[ICD9: 272.4] Sylvie SAINZ S. O RENDER [facility] CPT-4: 61675 05/24/2011 OFFICE/OUTPATIENT VISIT EST Diagnosis: PHARYNGITIS, ACUTE[ICD9: 462] Diagnosis: COUGH[ICD9: 786.2] Diagnosis: SINUSITIS, ACUTE[ICD9: 461.9] Sylvie BYRNE [facility] CPT-4: 94646 04/15/2011 OFFICE/OUTPATIENT VISIT EST Diagnosis: Clavicle fracture[ICD9: 810.00] Sylvie BYRNE [facility] CPT-4: 04418 01/13/2011 OFFICE/OUTPATIENT VISIT EST Diagnosis: Clavicle pain[ICD9: 719.41] Sylvie WILSONLINE S. O RENDER [facility] CPT-4: 25099 12/23/2010 OFFICE/OUTPATIENT VISIT EST Diagnosis: Arm pain[ICD9: 729.5] Diagnosis: SPASM OF MUSCLE[ICD9: 728.85] Diagnosis: Neck pain[ICD9: 723.1] Sylvie BORJA [facility] CPT-4: 95272 12/15/2010 OFFICE/OUTPATIENT VISIT EST Diagnosis: HYPERTENSION[ICD9: 401.9] Diagnosis: PHARYNGITIS, ACUTE[ICD9: 462] Diagnosis: MALAISE AND FATIGUE[ICD9: 780.79] Diagnosis: GOUT[ICD9: 274.9] Sylvie Phillips [facility] CPT-4: 25410 12/02/2010 ([id number]) OFFICE/OUTPATIENT VISIT, EST Sylvie BELLAMY SammiFrancisco [facility] CPT-4: 68440 04/19/2010 ([id number]) OFFICE/OUTPATIENT VISIT, EST Sylvie JAUREGUI GUICHIQUITA SammiFrancisco AGAPITO [facility] CPT-4: 28343 04/14/2010 ([id number]) OFFICE/OUTPATIENT VISIT, EST Sylvie Byrne JUVENTINO ChapaFrancisco AGAPITO [facility] CPT-4: 06897 09/01/2009 Plan of Care Planned Activity Notes [...] ICD-10 : L25.9 05/31/2019 Appointment: Azra Bradley [address] [place], [place] [phone] ACUTE ILLNESS 05/31/2019 Patient Education: prednisone- [employer] Coupon [id number] [email or web address]/resources/getResource/61/[email or web address] Completed 05/31/2019 Visit Diagnosis Plan: Acute contact dermatitis Discuss ion: Kenalog 40mg IM now Cover with [employer] Call in 1week on how doing Medrol Dose Pack ICD-9 : 692.9 ICD-10 : L25.9 05/17/2019 Appointment: Sylvie Byrnetel: [phone] [id number] ACUTE ILLNESS 05/17/2019 Patient Education: Medrol (Nicholas)- [employer] Coupon [phone] [email or web address]/Lolabox/resources/getResource/61/[email or web address] Completed 05/17/2019 Visit Diagnosis Plan: Abscess of chest wall Discussion : patient has large amount of induration still noted despite recent drainage and antibiotics. dr. najera's office was called and they were able to see patient today. patient was sent over there for possible surgery. ICD-9 : 682.2 ICD-10 : L02.213 01/25/2019 Appointment: Azra Bradley [address] [place] [address] FOLLOW UP 01/25/2019 Visit Diagnosis Plan: Abscess [...] ICD-10 : L02.213 01/23/2019 Appointment: Azra Bradley [address] [place], [place] [phone] [facility] SURGERY 01/23/2019 Patient Education: clindamycin HCl- [employer] Coupon [id number] [email or web address]/sampleEmergent Labs/resources/getResource/61/[email or web address] Completed 01/23/2019 Appointment: Azra Bradley [address] [place], [place] [address] CANCELED 01/16/2019 Visit Diagnosis Plan: Hyperlipidemia, unspecified [...] ICD-10 : K29.00 10/31/2018 Appointment: Azra Bradley [address] [place] [address] ACUTE ILLNESS 10/31/2018 Patient Education: High Blood [...] ICD-10 : K29.00 01/18/2018 Appointment: Azra Bradley [address] [place], [place] [phone] ACUTE ILLNESS 01/18/2018 Patient Education: Patient Medication Summary Completed 01/18/2018 Appointment: Sylvie Byrne WPtel: [phone] [id number] US LAB 03/29/2017 Patient Education: Patient Medication [...] ICD-10 : L72.3 03/15/2017 Appointment: Azra Bradley [address] [place], [place] [phone] OFFICE SURGERY 03/15/2017 Patient Education: Patient Medication [...] ICD-10 : M25.561 03/13/2017 Appointment: Azra Bradley [address] [place] [address] ACUTE ILLNESS 03/13/2017 Patient Education: Patient Medication Summary Completed 03/13/2017 Care Plan: X-RAY EXAM OF KNEE 1 [place] 2 [place] : [address]-1 Pending 03/13/2017 Visit Diagnosis Plan: Pain in [...] ICD-10 : L72.3 02/27/2017 Appointment: Azra Bradley [address] [place] [address] ACUTE ILLNESS 02/27/2017 Patient Education: Patient Medication Summary Completed 02/27/2017 Appointment: Katerina Sousa WPtel: [phone] [place] [address] ACUTE ILLNESS 08/21/2015 Visit Plan: Has been [...] back. 03/31/2015 Appointment: Dagmar Ahmadi WPtel: [phone] 03/30 Confirmed ~sl FOLLOW UP 03/31/2015 Patient [...] - Candido 01/07/2015 Appointment: Dagmar Ahmadi WPtel: [address] [place] [address] 01/06 appointment confirmed cn Annual Well Visit 01/07/2015 Patient Education: Patient Medication Summary Completed 01/07/2015 Patient Education: [facility] - Saving [employer] - Lisinopril - 18-64 - Dynamic Portal ID Completed 01/07/2015 Appointment: Sylvie Byrne WPtel: [address] [place] [address] ACUTE ILLNESS 08/26/2014 Appointment: Dagmar Ahmadi WPtel: [address] [place] [address] ACUTE ILLNESS 04/15/2014 Patient Education: Patient Medication Summary Completed 04/15/2014 Appointment: Sylvie Byrne WPtel: [address] [place] [address] US LAB 12/11/2013 Patient Education: Patient Medication Summary Completed 12/11/2013 Visit Plan: Check CBC, CMP, TSH, Free T4 , Lipids, uric acid, PSA--pt will return in AM for fasting lab Finish acyclovir Discussed Zostavax down road 12/10/2013 Appointment: Sylvie Byrne WPtel: [address] [place] [address] 12/06 left message FOLLOW UP 12/10/2013 Patient Education: Patient Medication Summary Completed 12/10/2013 Visit Plan: Lisinopril 20mg daily Stress Reducers and trial of fluoxetine 10mg q am Proceed with colonoscopy Check fasting lab 05/02/2013 Appointment: Sylvie Byrne WPtel: [address] [place] [address] ACUTE ILLNESS 05/02/2013 Patient Education: Patient Medication Summary Completed 05/02/2013 Appointment: Sylvie Byrnetel: [address] [place], [place] [phone] ACUTE ILLNESS 01/02/2013 Patient Education: Patient Medication Summary Completed 01/02/2013 Appointment: Liza Ragsdale WPtel: [address] [place], [place] [phone] ACUTE ILLNESS 10/10/2011 Patient Education: Patient Medication Summary Completed 10/10/2011 Appointment: Sylvie Byrne WPtel: [address] [place], [place] [phone] US LAB 09/15/2011 Patient Education: Patient Medication [...] Will seek re-eval if symptoms worsen or manager exchange the weekend. 08/12/2011 Appointment: Liza Ragsdale WPtel: [address] [place] [address] ACUTE ILLNESS 08/12/2011 Patient Education: Patient Medication Summary Completed 08/12/2011 Visit Plan: Continue increased dose of a llopurinol and daily colcrys Recheck thyroid lab, uric acid and PSA in 3mos Will hold on NSAID at this time due to history of GERD 08/04/2011 Appointment: Sylvie Byrne WPtel: [address] [place], [place] [phone] FOLLOW UP 08/04/2011 Patient Education: Patient Medication Summary Completed 08/04/2011 Appointment: Sylvie Byrne WPtel: [address] [place], [place] [phone] US LAB 07/28/2011 Patient Education: Patient Medication Summary Completed 07/28/2011 Appointment: Sylvie Byrne WPtel: [address] [place], [place] [phone] US LAB 05/25/2011 Patient Education: Patient Medication [...] at night. 05/24/2011 Appointment: Liza Ragsdale WPtel: [address] [place] [address] ACUTE ILLNESS 05/24/2011 Patient Education: Patient Medication Summary Completed 05/24/2011 Visit Plan: codeine/guif cough syrup and cefdinir are phoned to [facility]. Discussed fluids and rest. Pt. will notify if symptoms persist or worsen. 04/15/2011 Appointment: Liza Ragsdale WPtel: [address] [place], [place] [phone] ACUTE ILLNESS 04/15/2011 Patient Education: Patient Medication Summary Completed 04/15/2011 Appointment: Sylvie Byrne WPtel: [address] [place], [place] [id number] US LAB 02/01/2011 Patient Education: Patient Medication Summary Completed 02/01/2011 Visit Plan: Repeat clavicle x-ray in 6wk s Check bone density 01/13/2011 Appointment: Sylvie Byrne WPtel: [address] [place], [place] [phone] US FOLLOW UP 01/13/2011 Patient Education: Patient Medication Summary Completed 01/13/2011 Visit Plan: Check right clavicle and alda ulder x-ray Continue Vimovo and flexeril 12/23/2010 Appointment: Slyvie Byrne WPtel: [address] [place], [place] [phone] US FOLLOW UP 12/23/2010 Patient Education: Patient Medication Summary Completed 12/23/2010 Appointment: Sylvie Byrne WPtel: [address] [place] [address] ER Follow UP 12/15/2010 Patient Education: Patient [...] BP check. 12/02/2010 Appointment: Liza Ragsdale WPtel: [address] [place] [address] ACUTE ILLNESS 12/02/2010 Patient Education: Patient Medication Summary Completed 12/02/2010 Care Plan: ASSAY OF BLOOD/URIC ACID Pendi ng 12/02/2010 Care Plan: VCA AB G/M Pending 2010 Care Plan: EB GARY AG Pending 2010 Care Plan: EB NUCL AB Pending 2010 Appointment: Sylvie Byrne WPtel: [address] [place] [address] FOLLOW UP 11/18/2010 Visit Plan: benadryl 25 mg tab QHS. 12.5 mg tab every 8 hrs during the day. Pt. will notify if symptoms worsen. No facial edema present. 04/19/2010 Appointment: Liza Rags[facility] WPtel: [address] [place] [address] FOLLOW UP 04/19/2010 Patient Education: Patient Medication [...] no improvement. 04/14/2010 Appointment: Liza Ragsdale WPtel: [address] [place], [place] [id number] ACUTE ILLNESS 04/14/2010 Patient Education: Patient Medication Summary Completed 04/14/2010 Appointment: Liza Ragsdale WPtel: [address] [place], [place] [phone] ACUTE ILLNESS 03/12/2010 Appointment: Sylvie Byrne WPtel: [address] [place], [place] [phone] US LAB 09/14/2009 Patient Education: Patient Medication Summary Completed 09/14/2009 Appointment: Sylvie Byrne WPtel: [address] [place], [place] [phone] ACUTE ILLNESS 09/01/2009 Patient Education: Patient Medication [...] 100 mg Ciprofloxacin 500 mg PO bid [facility] appt. for follow-up [facility] - [place] . Check CBC, CMP, TSH, Free T4, [...] seek re- eval if symptoms worsen or manager exchange the weekend. . Continue increased dose of [...] cough syrup and cefdinir are phoned to [facility]. Discussed fluids and rest. Pt. will [...]
--- OUTSIDE RECORDS SUMMARY | 2019-10-17 10:34 | XMS REPORT | CCD ---
Author Author Renan Byrne D.O. Organization [facility] Address [address] [place] [address] Phone Care Team Providers Care Financial Services Manager Name Role Phone Sylvie Byrne D.O., PP Unavailable CCM Unavailable Summary Purpose Interface Exchange Insurance Providers Payer name Policy type / Coverage type Covered alliance party ID Effective Begin Date Effective End Date WPS MEDICARE PART B [place] Medicare Part B [id number] Unknown [facility] Medicare Part B [id number] Unknown Family History Family History data not found Social History Social History Element Codes Description Effective Dates Tobacco history SNOMED CT: 628249044 Nonsmoker 12/02/2010 Allergies, Adverse Reactions, Alerts Substance [...] Start Date Stop Date Status Fill Instructions prednisone 20 mg tablet RxNorm: 983967 1 Tablet(s) Oral two latonia es a day 05/31/2019 06/05/2019 Active Elimite 5 % topical cream RxNorm: 985390 Application To pical QPM from head to toe 05/17/2019 07/16/2019 Active Medrol (Nicholas) 4 mg tablets in a dose pack RxNorm: 930420 6 Tablet(s) Oral QD --then as directed 05/17/2019 05/23/2019 Inactive Osteo Bi-Flex 250 mg-200 mg tablet RxNorm: 164904 2 Tablet(s) O ral QD 01/23/2019 No Stop Date Active clindamycin HCl 300 mg capsule RxNorm: 589635 2 Capsule (s) Oral three times a day 01/23/2019 01/30/2019 Inactive Flagyl 500 mg tablet RxNorm: 940138 1 Tablet(s) PO BID 10/31/2018 Inactive lisinopril 20 mg tablet RxNorm: 441973 1 Tablet(s) PO QD for bl ood pressure 09/13/2018 12/11/2018 Inactive allopurinol 100 mg tablet RxNorm: 283345 1 Tablet(s) PO QD 09/14/19 19 12/11/2018 Inactive Flagyl 500 mg tablet RxNorm: 551723 1 Tablet(s) PO BID 01/18/2018 Inactive Cipro 250 mg tablet RxNorm: 092354 1 Tablet(s) PO BID 01/18/201801/08 Inactive lisinopril 20 mg tablet RxNorm: 446376 1 Tablet(s) PO QD for bl ood pressure 11/06/2017 02/03/2018 Inactive allopurinol 100 mg tablet RxNorm: 776809 1 Tablet(s) PO QD 11/07/19 18 02/03/2018 Inactive allopurinol 100 mg tablet RxNorm: 504700 1 Tablet(s) PO QD 04/11/19 18 10/07/2017 Inactive lisinopril 20 mg tablet RxNorm: 763642 1 Tablet(s) PO QD for bl ood pressure 04/07/2017 11/05/2017 Inactive prednisone 20 mg tablet RxNorm: 640558 2 Tablet(s) PO QD 03/15/2017 1 05/18/2016 Inactive tramadol 50 mg tablet RxNorm: 962266 1-2 Tablet(s) PO TID as needed 03/13/2017 08/06/2017 Inactive Medrol (Nicholas) 4 mg tablets in a dose pack RxNorm: 429637 Tablet(s) PO As Directed 02/28/2017 08/01/2017 Inactive allopurinol 100 mg tablet RxNorm: 983686 1 Tablet(s) PO QD 04/11/19 17 04/11/2017 Inactive lisinopril 20 mg tablet RxNorm: 022752 1 Tablet(s) PO QD for bl ood pressure 04/11/2016 04/07/2017 Inactive pravastatin 20 mg tablet RxNorm: 700054 1 Tablet(s) PO QD 01/13/2016 02/26/2017 Inactive pravastatin 20 mg tablet RxNorm: 468261 TAKE 1 TABLET DAILY 016 01/13/2016 Inactive pravastatin 40 mg tablet RxNorm: 693532 1 Tablet(s) PO QD 03/31/2015 03/31/2015 Inactive pravastatin 20 mg tablet RxNorm: 936077 1 Tablet(s) PO QD 03/31/2015 06/28/2015 Inactive doxycycline hyclate 100 mg capsule RxNorm: 6320240 1 Capsule(s) PO BID 03/31/2015 04/09/2015 Inactive mupirocin 2 % topical ointment RxNorm: 151840 Apply TOP BID to affected lesions 03/31/2015 08/01/2017 Inactive pravastatin 40 mg tablet RxNorm: 223245 1 Tablet(s) PO QD 01/08/2015 03/30/2015 Inactive lisinopril 20 mg tablet RxNorm: 016125 1 Tablet(s) PO QD for bl ood pressure 01/07/2015 12/31/2015 Inactive allopurinol 100 mg tablet RxNorm: 685483 1 Tablet(s) PO QD 01/08/20 15 04/10/2016 Inactive ciprofloxacin 500 mg tablet RxNorm: 219113 1 Tablet(s) PO BID 01/0701/13/2015 Inactive doxycycline hyclate 100 mg capsule RxNorm: 0658905 1 Capsule(s) PO BID 04/15/2014 04/24/2014 Inactive fluoxetine 10 mg capsule RxNorm: 621672 1 Capsule(s) PO QAM 014 04/14/2014 Inactive lisinopril 20 mg tablet RxNorm: 365643 1 Tablet(s) PO QD for bl ood pressure 05/02/2013 04/26/2014 Inactive Cipro 500 mg tablet RxNorm: 352311 1 Tablet(s) PO BID 01/02/201312/10 Inactive Cipro 500 mg tablet RxNorm: 010070 1 Tablet(s) PO BID 01/02/20130 04/2012 Inactive doxycycline hyclate 100 mg Cap RxNorm: 082935 1 Capsule(s) PO BID 0 10/10/2011 10/19/2011 Inactive Culturelle 10 billion cell Cap RxNorm: 851928 1 Capsule(s) PO BID 0 08/12/2011 09/10/2011 Inactive Colcrys 0.6 mg Tab RxNorm: 430235 1 Tablet(s) PO BID 08/04/201111/30 Inactive allopurinol 100 mg Tab RxNorm: 046153 1 Tablet(s) PO BID 07/13/2011 0 08/03/2011 Inactive clotrimazole-betamethasone 1 %-0.05 % Topical Cream RxNorm: 734719 1 Application TOP BID 06/10/2011 06/23/2011 Inactive clotrimazole-betamethasone 1 %-0.05 % Topical Cream RxNorm: 277840 1 Application TOP BID 05/24/2011 06/06/2011 Inactive Colcrys 0.6 mg Tab RxNorm: 010468 1 Tablet(s) PO BID 05/24/201108/02 Inactive cefdinir 300 mg Cap RxNorm: 538136 1 Capsule(s) PO BID 04/15/2011 Inactive Daypro 600 mg Tab RxNorm: 552092 1 Tablet(s) PO BID 12/15/20102010 Inactive for pain Medrol (Nicholas) 4 mg Tabs in a Dose Pack RxNorm: 347647 Tablet(s) PO 0 12/09/2010 12/15/2010 Inactive as directed Colcrys 0.6 mg Tab RxNorm: 679904 1 Tablet(s) PO BID 12/06/201001/04 Inactive lisinopril-hydrochlorothiazide 20 mg-12.5 mg Tab RxNorm: 197 886 1 Tablet(s) PO QAM 12/02/2010 01/30/2011 Inactive ranitidine 150 mg tablet RxNorm: 1910799 1 Tablet(s) PO BID Pt will phone before filing this script. 04/14/2010 05/13/2010 Inactive allopurinol 100 mg Tab RxNorm: 169408 1 Tablet(s) PO BID 09/16/2009 0 11/14/2009 Inactive lisinopril-hydrochlorothiazide 20 mg-12.5 mg Tab RxNorm: 197 886 1 Tablet(s) PO QAM 06/23/2009 08/31/2009 Inactive ibuprofen 200 mg tablet RxNorm: 558825 4 Tablet(s) PO QAM No Start Da te Active Zithromax Z-Nicholas 250 mg Tab RxNorm: 857224 Tablet(s) PO as direc tenzin No Start Date 01/12/2011 Inactive Ultram Oral RxNorm: Oral No Start Date 01/01/2013 Inactive allopurinol 100 mg tablet RxNorm: 281866 1 Tablet(s) PO QD No Start Date 01/06/2015 Inactive pravastatin 40 mg tablet RxNorm: 081968 1 Tablet(s) PO QD No Start Date 01/07/2015 Inactive Naprosyn 500 mg tablet RxNorm: 507671 1 Tablet(s) PO BID No Start D ate 05/01/2013 Inactive azithromycin 250 mg tablet RxNorm: 176073 2 Tablet(s) P O QD take 2 tablets (500 mg) by oral route once daily for 1 day then 1 tablet (250 mg) by oral route once daily for 4 days No Start Date 01/12/2011 Inactive allopurinol 300 mg Tab RxNorm: 257245 1 Tablet(s) PO QD No Start Da te 01/01/2013 Inactive Colcrys 0.6 mg tablet RxNorm: 944528 1 Tablet(s) PO BID No Start Da te 05/01/2013 Inactive Medrol (Nicholas) 4 mg tablets in a dose pack RxNorm: 553392 Tablet(s) PO As Directed No Start Date 02/27/2017 Inactive hydrocodone 5 mg-acetaminophen 325 mg tablet RxNorm: 945956 1 Tablet(s) PO Q4H as needed for pain No Start Date 12/09/2013 Inactive ranitidine 150 mg Tab RxNorm: 3436747 1 Tablet(s) PO BID No Start D ate 04/13/2010 Inactive Allopurinol 100 mg Tab RxNorm: 927699 1 Tablet(s) PO BID No Start D ate 09/15/2009 Inactive coenzyme Q10 200 mg capsule RxNorm: 345947 1 Capsule(s) PO QD No St art Date 03/30/2015 Inactive Mobic 7.5 mg tablet RxNorm: 110484 1 Tablet(s) PO QD No Start Date Inactive Osteo Bi-Flex (5-Loxin) 1,500 mg-400 unit-100 mg tablet RxNo rm: 1 Tablet(s) PO BID No Start Date 03/30/2015 Inactive hydrocodone-acetaminophen 7.5 mg-325 mg Tab RxNorm: 839721 1-2 Tablet(s) PO Q4-6H No Start Date 08/03/2011 Inactive as needed for pa in Neurontin 300 mg capsule RxNorm: 367787 1 Capsule(s) PO QD No Start Date 12/09/2013 Inactive Medrol (Nicholas) 4 mg Tabs in a Dose Pack RxNorm: 614256 Tablet(s) PO N o Start Date 12/08/2010 Inactive as directed Vitamin D2 1,000 unit capsule RxNorm: 182538 1 Capsule(s) PO QD No Start Date 03/30/2015 Inactive Flexeril 10 mg Tab RxNorm: 007290 1 Tablet(s) PO TID No Start Date Inactive for spasm Medication Administered No Medication Administered data Immunizations No Immunization data Results Observation Observation Code Item Item Code Result Date S ervice Location C DIFF MOL 3508962 C Diff Mol Int Negative 11/02/2018 Unk nown C Diff An 68587464 C Diff Analyzer Indeterminate 9 Unknown GFR CALC 1489129 GFR Non Afr Amr >60 mL/min 11/01/2018 Un known GFR CALC 3001802 GFR Afr Amr >60 mL/min 11/01/[address] LDL 9840126 HDL CHOLESTEROL 46 mg/dL 11/01/[address] LDL 2060735 Cholesterol 198 mg/dL 11/01/[address] LDL 3040283 Triglyceride 104 mg/dL 11/01/[address] LDL 9750679 LDL Direct 158 mg/dL 11/01/[address] LDL 6616556 NON-HDL Chol 152 mg/dL 11/01/2018 Unkno wn THYROID STIMULATING HORMONE 97411 TSH 1.276 uIU/mL 11/01/2018 Unknown COMPREHENSIVE METABOLIC 52699 AST 22 U/L 2018 Unknown COMPREHENSIVE METABOLIC 94588 ALT 17 U/L 2018 Unknown COMPREHENSIVE METABOLIC 66974 BUN 16 mg/dL 2018 Unknown COMPREHENSIVE METABOLIC 81937 ALBUMIN 4.3 g/dL 2018 Unknown COMPREHENSIVE METABOLIC 81739 CHLORIDE 103 mmol/L 11/01 Unknown COMPREHENSIVE METABOLIC 05736 Bili Total 0.9 mg/dL 11/01 Unknown COMPREHENSIVE METABOLIC 18049 ALK PHOS 62 U/L 2018 Unknown COMPREHENSIVE METABOLIC 87953 SODIUM 138 mmol/L 11/01 Unknown COMPREHENSIVE METABOLIC 68487 CREATININE 0.87 mg/dL 10/09 Unknown COMPREHENSIVE METABOLIC 85237 CALCIUM 9.2 mg/dL 2018 Unknown COMPREHENSIVE METABOLIC 76644 POTASSIUM 4.1 mmol/L 11/01 Unknown COMPREHENSIVE METABOLIC 82403 Total Protein 7.2 g/dL Unknown COMPREHENSIVE METABOLIC 80893 Glucose 81 mg/dL 2018 Unknown COMPREHENSIVE METABOLIC 74664 Bicarbonate 18 mmol/L 10/09 Unknown COMPREHENSIVE METABOLIC 59117 AGAP 17 mmol/L 2018 Unknown COMPLETE BLOOD COUNT 1070328 WBC 8.8 10e9/L 11/02/19 19 Unknown COMPLETE BLOOD COUNT 4449517 RBC 4.54 10e12/L 2018 Unknown COMPLETE BLOOD COUNT 8269840 HEMOGLOBIN 14.4 g/dL 11/02/19 19 Unknown COMPLETE BLOOD COUNT 1593630 HEMATOCRIT 44.0 % 11/02/19 19 Unknown COMPLETE BLOOD COUNT 7950036 MCV 96.9 fL 9 Unknown COMPLETE BLOOD COUNT 2039126 MCH 31.7 pg 9 Unknown COMPLETE BLOOD COUNT 3472007 MCHC 32.7 g/dL 9 Unknown COMPLETE BLOOD COUNT 1109412 PLATELET COUNT 239 10e9/L Unknown COMPLETE BLOOD COUNT 3160686 Mean Plt Volume 10.5 fL Unknown COMPLETE BLOOD COUNT 1906504 Neut Auto 65.2 % 9 Unknown COMPLETE BLOOD COUNT 9951983 NRBC Absolute 0.00 10e9/L Unknown COMPLETE BLOOD COUNT 2193232 Lymph Auto 23.1 % 11/02/19 19 Unknown COMPLETE BLOOD COUNT 9629629 NRBC/100 WBC 0.0 2018 Unknown COMPLETE BLOOD COUNT 4037970 [place] Auto 9.5 % 9 Unknown COMPLETE BLOOD COUNT 1261439 RDW 12.2 % 9 Unknown COMPLETE BLOOD COUNT 2168926 Eos Auto 1.7 % 9 Unknown COMPLETE BLOOD COUNT 1481788 Baso Auto 0.3 % 9 Unknown COMPLETE BLOOD COUNT 8535411 Neutrophil Abs 5.73 10e9/L Unknown COMPLETE BLOOD COUNT 2953860 Imm Gran Auto 0.2 % 11/01 Unknown COMPLETE BLOOD COUNT 5918021 Lymphocyte Abs 2.03 10e9/L Unknown COMPLETE BLOOD COUNT 6060972 Monocyte Abs 0.84 10e9/L 10/09 Unknown COMPLETE BLOOD COUNT 5344362 Eosinophil Abs 0.15 10e9/L Unknown COMPLETE BLOOD COUNT 8673431 RDW-SD 43.4 fL 9 Unknown COMPLETE BLOOD COUNT 0491229 Basophil Abs 0.03 10e9/L 10/09 Unknown COMPLETE BLOOD COUNT 2957982 Imm Gran Abs 0.02 10e9/L 10/09 Unknown COMPREHENSIVE METABOLIC 21295 AST 17 U/L 2016 Unknown COMPREHENSIVE METABOLIC 16881 ALT 16 U/L 2016 Unknown COMPREHENSIVE METABOLIC 85543 BUN 15 mg/dL 2016 Unknown COMPREHENSIVE METABOLIC 57774 ALBUMIN 4.4 g/dL 2016 Unknown COMPREHENSIVE METABOLIC 32665 CHLORIDE 104 mmol/L 03/29 Unknown COMPREHENSIVE METABOLIC 28105 Bili Total 0.5 mg/dL 03/29 Unknown COMPREHENSIVE METABOLIC 37208 ALK PHOS 56 U/L 2016 Unknown COMPREHENSIVE METABOLIC 29817 SODIUM 139 mmol/L 03/29 Unknown COMPREHENSIVE METABOLIC 66481 CREATININE 0.88 mg/dL 03/11 Unknown COMPREHENSIVE METABOLIC 14445 CALCIUM 9.8 mg/dL 2016 Unknown COMPREHENSIVE METABOLIC 50056 POTASSIUM 4.2 mmol/L 03/29 Unknown COMPREHENSIVE METABOLIC 61627 Total Protein 6.8 g/dL Unknown COMPREHENSIVE METABOLIC 07268 Glucose 100 mg/dL 2016 Unknown COMPREHENSIVE METABOLIC 48611 Bicarbonate 30 mmol/L 03/11 Unknown COMPREHENSIVE METABOLIC 97724 AGAP 5 mmol/L 2016 Unknown THYROID STIMULATING HORMONE 99293 TSH 1.077 uIU/mL 03/29/2017 Unknown URIC ACID 55622 URIC ACID 5.2 mg/dL 03/29/2017 Unknown FREE T4 15956 T4 Free 1.04 ng/dL 03/29/2017 Unknown ERYTHROCYTE SEDIMENTATION RATE 92344 Sed Rate 21 mm/hr 03/29/2017 Unknown COMPLETE BLOOD COUNT 6312245 WBC 5.9 10e9/L 03/29/20 17 Unknown COMPLETE BLOOD COUNT 0713084 RBC 4.52 10e12/L 2016 Unknown COMPLETE BLOOD COUNT 5939893 HEMOGLOBIN 14.6 g/dL 03/29/20 17 Unknown COMPLETE BLOOD COUNT 8097657 HEMATOCRIT 44.7 % 03/29/20 17 Unknown COMPLETE BLOOD COUNT 7132126 MCV 98.9 fL 7 Unknown COMPLETE BLOOD COUNT 4450901 MCH 32.3 pg 7 Unknown COMPLETE BLOOD COUNT 7406121 MCHC 32.7 g/dL 7 Unknown COMPLETE BLOOD COUNT 3719177 PLATELET COUNT 262 10e9/L Unknown COMPLETE BLOOD COUNT 4024859 Mean Plt Volume 10.1 fL Unknown COMPLETE BLOOD COUNT 8560373 Neut Auto 44.2 % 7 Unknown COMPLETE BLOOD COUNT 0462423 Lymph Auto 41.5 % 03/29/20 17 Unknown COMPLETE BLOOD COUNT 1635925 [place] Auto 11.2 % 7 Unknown COMPLETE BLOOD COUNT 6028931 Eos Auto 2.6 % 7 Unknown COMPLETE BLOOD COUNT 4749987 RDW 12.3 % 7 Unknown COMPLETE BLOOD COUNT 6345567 Baso Auto 0.5 % 7 Unknown COMPLETE BLOOD COUNT 8872344 Neutrophil Abs 2.61 10e9/L Unknown COMPLETE BLOOD COUNT 2286330 Lymphocyte Abs 2.45 10e9/L Unknown COMPLETE BLOOD COUNT 1155202 Monocyte Abs 0.66 10e9/L 03/11 Unknown COMPLETE BLOOD COUNT 7758967 Eosinophil Abs 0.15 10e9/L Unknown COMPLETE BLOOD COUNT 0128658 Basophil Abs 0.03 10e9/L 03/11 Unknown COMPLETE BLOOD COUNT 7154051 RDW-SD 43.7 fL 7 Unknown LIPID GROUP 70962 Cholesterol 248 mg/dL 03/29/2017 Unkno wn LIPID GROUP 87899 Triglyceride 87 mg/dL 03/29/2017 Unkn own LIPID GROUP 99712 HDL CHOLESTEROL 49 mg/dL 03/29/2017 U nknown LIPID GROUP 67196 Chol/HDL Ratio 5.06 ratio 03/29/2017 U nknown LIPID GROUP 91546 NON-HDL Chol 199 mg/dL 03/29/2017 Unkn own LIPID GROUP 33255 LDL Cholesterol 182 mg/dL 03/29/2017 U nknown GFR CALC 7730412 GFR Afr Amr >60 mL/min 03/29/2017 Unknow n GFR CALC 4212367 GFR Non Afr Amr >60 mL/min 03/29/2017 Un known HIV AG/AB 7220737 HIV Ag/Ab Non-Reactive 03/15/2017 Unkno wn VIRAL HEPATITIS PROFILE #2 00820 Hep A IgM Non-Reactive 03/15/2017 Unknown VIRAL HEPATITIS PROFILE #2 38545 Hep B Core IgM Non-Reac tive 03/15/2017 Unknown VIRAL HEPATITIS PROFILE #2 87075 Hepatitis C Ab Non-Reac tive 03/15/2017 Unknown VIRAL HEPATITIS PROFILE #2 94114 Hep Bs Ag Non-Reactive 03/15/2017 Unknown COMPREHENSIVE METABOLIC 93618 AST 23 U/L 2014 Unknown COMPREHENSIVE METABOLIC 18157 ALT 21 IU/L 2014 Unknown COMPREHENSIVE METABOLIC 58731 BUN 13 MG/DL 2014 Unknown COMPREHENSIVE METABOLIC 97138 ALBUMIN 4.3 GM/DL 2014 Unknown COMPREHENSIVE METABOLIC 99170 CHLORIDE 105 MMOL/L 01/07 Unknown COMPREHENSIVE METABOLIC 45122 BILI TOT 0.7 MG/DL 2014 Unknown COMPREHENSIVE METABOLIC 96439 ALK PHOS 51 U/L 2014 Unknown COMPREHENSIVE METABOLIC 12424 SODIUM 139 MMOL/L 01/07 Unknown COMPREHENSIVE METABOLIC 84234 CREATININE 0.85 MG/DL 12/11 Unknown COMPREHENSIVE METABOLIC 95262 CALCIUM 9.5 MG/DL 2014 Unknown COMPREHENSIVE METABOLIC 25394 POTASSIUM 4.4 MMOL/L 01/07 Unknown COMPREHENSIVE METABOLIC 24111 PROT TOT 6.7 GM/DL 2014 Unknown COMPREHENSIVE METABOLIC 80896 Glucose 100 MG/DL 2014 Unknown COMPREHENSIVE METABOLIC 99190 BICARB 27 MMOL/L 2014 Unknown COMPREHENSIVE METABOLIC 60382 ANION GAP 7 MEQ/L 2014 Unknown THYROID STIMULATING HORMONE 60951 TSH 0.900 uIU/ML 01/07/2015 Unknown COMPLETE BLOOD COUNT 4114894 WBC 4.9 10e9/L 01/08/20 15 Unknown COMPLETE BLOOD COUNT 0531073 RBC 4.71 10e12/L 2014 Unknown COMPLETE BLOOD COUNT 4025343 HGB 15.3 g/dL 5 Unknown COMPLETE BLOOD COUNT 0483301 HCT DET 46.1 % 5 Unknown COMPLETE BLOOD COUNT 4033010 MCV 97.9 fL 5 Unknown COMPLETE BLOOD COUNT 3307294 MCH 32.5 pg 5 Unknown COMPLETE BLOOD COUNT 1103712 MCHC 33.2 g/dL 5 Unknown COMPLETE BLOOD COUNT 1512091 PLT 227 10e9/L 01/08/20 15 Unknown COMPLETE BLOOD COUNT 7096604 MPV 10.9 fL 5 Unknown COMPLETE BLOOD COUNT 0396386 [place] % 53.0 % 5 Unknown COMPLETE BLOOD COUNT 8377148 LY % 35.8 % 5 Unknown COMPLETE BLOOD COUNT 8736885 MON % 8.6 % 5 Unknown COMPLETE BLOOD COUNT 2027274 EOS % 2.2 % 5 Unknown COMPLETE BLOOD COUNT 9169623 BASO % 0.4 % 5 Unknown COMPLETE BLOOD COUNT 8921380 RDW 12.9 % 5 Unknown COMPLETE BLOOD COUNT 3132052 ABS VERONIQUE 2.60 10e9/L 015 Unknown COMPLETE BLOOD COUNT 0146702 ABS LYMPH 1.75 10e9/L 015 Unknown COMPLETE BLOOD COUNT 5474391 ABS MONO 0.42 10e9/L 015 Unknown COMPLETE BLOOD COUNT 8614365 ABS EOS 0.11 10e9/L 015 Unknown COMPLETE BLOOD COUNT 9700911 ABS BASO 0.02 10e9/L 015 Unknown COMPLETE BLOOD COUNT 6958461 RDW-SD 45.7 fL 5 Unknown URIC ACID 89216 URIC ACID 6.7 MG/DL 01/07/2015 Unknown LIPID GROUP 21050 HDL TEST 52 MG/DL 01/07/2015 Unknown LIPID GROUP 26456 TRIG 158 MG/DL 01/07/2015 Unknown LIPID GROUP 14820 TEST LDL 157 MG/DL 01/07/2015 Unknown LIPID GROUP 90581 CHOL 241 MG/DL 01/07/2015 Unknown LIPID GROUP 78034 RCHOL/HDL 4.63 RATIO 01/07/2015 Unknow n LIPID GROUP 82929 NON-HDL CH 189 MG/DL 01/07/2015 Unknow n GFR CALC 9546981 GFR AA >60 ML/MIN 01/07/2015 Unknown GFR CALC 1932732 GFR NON-AA >60 ML/MIN 01/07/2015 Unknown PSA EQUIMOLAR JONATAN 04916 PSA EQ 2.18 NG/ML 5 Unknown FREE T4 95504 FREE T4 1.04 NG/DL 01/07/2015 Unknown GFR CALC 2798516 GFR AA >60 ML/MIN 12/11/2013 Unknown GFR CALC 9001222 GFR NON-AA >60 ML/MIN 12/11/2013 Unknown LIPID GROUP 36149 HDL TEST 54 MG/DL 12/11/2013 Unknown LIPID GROUP 72508 TRIG 81 MG/DL 12/11/2013 Unknown LIPID GROUP 42931 TEST LDL 185 MG/DL 12/11/2013 Unknown LIPID GROUP 11398 CHOL 255 MG/DL 12/11/2013 Unknown LIPID GROUP 40025 RCHOL/HDL 4.72 RATIO 12/11/2013 Unknow n LIPID GROUP 11298 NON-HDL CH 201 MG/DL 12/11/2013 Unknow n URIC ACID 62478 URIC ACID 7.1 MG/DL 12/11/2013 Unknown PSA EQUIMOLAR JONATAN 90927 PSA EQ 3.80 NG/ML 4 Unknown COMPLETE BLOOD COUNT 6419170 WBC 5.9 10e9/L 12/12/19 14 Unknown COMPLETE BLOOD COUNT 2484437 RBC 4.40 10e12/L 2013 Unknown COMPLETE BLOOD COUNT 0886211 HGB 14.5 g/dL 4 Unknown COMPLETE BLOOD COUNT 3769401 HCT DET 43.6 % 4 Unknown COMPLETE BLOOD COUNT 6677753 MCV 99.1 fL 4 Unknown COMPLETE BLOOD COUNT 5271303 MCH 33.0 pg 4 Unknown COMPLETE BLOOD COUNT 9449208 MCHC 33.3 g/dL 4 Unknown COMPLETE BLOOD COUNT 5796082 PLT 289 10e9/L 12/12/19 14 Unknown COMPLETE BLOOD COUNT 8799302 MPV 10.2 fL 4 Unknown COMPLETE BLOOD COUNT 2357928 [place] % 47.9 % 4 Unknown COMPLETE BLOOD COUNT 1458565 LY % 40.6 % 4 Unknown COMPLETE BLOOD COUNT 9326743 MON % 8.8 % 4 Unknown COMPLETE BLOOD COUNT 5144889 EOS % 2.2 % 4 Unknown COMPLETE BLOOD COUNT 4729847 BASO % 0.5 % 4 Unknown COMPLETE BLOOD COUNT 3476664 RDW 12.9 % 4 Unknown COMPLETE BLOOD COUNT 7882742 ABS [place] 2.83 10e9/L 014 Unknown COMPLETE BLOOD COUNT 8544340 ABS LYMPH 2.40 10e9/L 014 Unknown COMPLETE BLOOD COUNT 2037780 ABS MONO 0.52 10e9/L 014 Unknown COMPLETE BLOOD COUNT 8409726 ABS EOS 0.13 10e9/L 014 Unknown COMPLETE BLOOD COUNT 9590011 ABS BASO 0.03 10e9/L 014 Unknown COMPLETE BLOOD COUNT 4342093 RDW-SD 45.7 fL 4 Unknown THYROID STIMULATING HORMONE 92634 TSH 1.013 uIU/ML 12/11/2013 Unknown COMPREHENSIVE METABOLIC 56092 AST 20 U/L 2013 Unknown COMPREHENSIVE METABOLIC 09589 ALT 16 IU/L 2013 Unknown COMPREHENSIVE METABOLIC 76276 BUN 17 MG/DL 2013 Unknown COMPREHENSIVE METABOLIC 72866 ALBUMIN 4.6 GM/DL 2013 Unknown COMPREHENSIVE METABOLIC 70912 CHLORIDE 107 MMOL/L 12/11 Unknown COMPREHENSIVE METABOLIC 29175 BILI TOT 0.7 MG/DL 2013 Unknown COMPREHENSIVE METABOLIC 08786 ALK PHOS 53 U/L 2013 Unknown COMPREHENSIVE METABOLIC 34806 SODIUM 140 MMOL/L 12/11 Unknown COMPREHENSIVE METABOLIC 02122 CREATININE 0.84 MG/DL 06/2013 Unknown COMPREHENSIVE METABOLIC 98704 CALCIUM 9.7 MG/DL 2013 Unknown COMPREHENSIVE METABOLIC 21779 POTASSIUM 4.6 MMOL/L 12/11 Unknown COMPREHENSIVE METABOLIC 75575 PROT TOT 6.9 GM/DL 2013 Unknown COMPREHENSIVE METABOLIC 12723 Glucose 97 MG/DL 2013 Unknown COMPREHENSIVE METABOLIC 67451 BICARB 25 MMOL/L 2013 Unknown COMPREHENSIVE METABOLIC 76618 ANION GAP 8 MEQ/L 2013 Unknown FREE T4 01023 FREE T4 1.11 NG/DL 12/11/2013 Unknown ASSAY OF CREATININE 12512 CREATININE 0.98 MG/DL 09/15/19 12 Unknown URIC ACID 99937 URIC ACID 4.9 MG/DL 09/15/2011 Unknown GFR CALC 5717894 GFR AA >60 ML/MIN 09/15/2011 Unknown GFR CALC 2461587 GFR NON-AA >60 ML/MIN 09/15/2011 Unknown THYROID STIMULATING HORMONE 96217 TSH 1.687 uIU/ML 08/01/2011 Unknown FREE T4 69473 FREE T4 0.96 NG/DL 08/01/2011 Unknown SJOGRENS 4008829 SJOGRN A <20 EU/ML 08/01/2011 Unknown SJOGRENS 9324928 SJOGRN B <20 EU/ML 08/01/2011 Unknown SJOGRENS 7421738 NONHIS INT SEE BELO 08/01/2011 Unknown THYRO PERX 4864635 THYRO PERX 175.34 UNITS 07/30/2011 Unkn own DNA AB 5420657 DNA AB 32 IU/ML 07/29/2011 Unknown TITER WENDI 9765061 TITR WENDI 1:160 07/29/2011 Unknown TITER WENDI 7857638 PATTERN NUCLEOLR 07/29/2011 Unknown ANTINUCLEAR ANTIBODY SCREEN 55775 WENDI SCR POSITIVE Unknown COMPREHENSIVE METABOLIC 31230 AST 23 U/L 2011 Unknown COMPREHENSIVE METABOLIC 12431 ALT 26 IU/L 2011 Unknown COMPREHENSIVE METABOLIC 41585 BUN 18 MG/DL 2011 Unknown COMPREHENSIVE METABOLIC 10341 ALBUMIN 4.6 GM/DL 2011 Unknown COMPREHENSIVE METABOLIC 33910 CHLORIDE 105 MMOL/L 07/27 Unknown COMPREHENSIVE METABOLIC 78065 BILI TOT 0.5 MG/DL 2011 Unknown COMPREHENSIVE METABOLIC 22452 ALK PHOS 63 U/L 2011 Unknown COMPREHENSIVE METABOLIC 87243 SODIUM 138 MMOL/L 07/27 Unknown COMPREHENSIVE METABOLIC 24624 CREATININE 0.92 MG/DL 07/09 Unknown COMPREHENSIVE METABOLIC 97348 CALCIUM 9.4 MG/DL 2011 Unknown COMPREHENSIVE METABOLIC 34212 POTASSIUM 3.9 MMOL/L 07/27 Unknown COMPREHENSIVE METABOLIC 22209 PROT TOT 6.7 GM/DL 2011 Unknown COMPREHENSIVE METABOLIC 70592 Glucose 101 MG/DL 2011 Unknown COMPREHENSIVE METABOLIC 80127 BICARB 24 MMOL/L 2011 Unknown COMPREHENSIVE METABOLIC 81283 ANION GAP 9 MEQ/L 2011 Unknown GFR CALC 8767068 GFR AA >60 ML/MIN 07/28/2011 Unknown GFR CALC 6515689 GFR NON-AA >60 ML/MIN 07/28/2011 Unknown ERYTHROCYTE SEDIMENTATION RATE 50811 ESR 2 MM/HR 07/28/2011 Unknown URIC ACID 02693 URIC ACID 5.8 MG/DL 07/28/2011 Unknown C-REACTIVE PROTEIN (CRP) QUANT 37708 CRP 0.2 MG/DL 07/28/2011 Unknown TITER WENDI 6757182 TITR WENDI 1:160 05/26/2011 Unknown TITER WENDI 4248337 PATTERN NUCLEOLR 05/26/2011 Unknown RA FACTOR 85524 RA FACTOR <20.0 IU/ML 05/26/2011 Unknown ANTINUCLEAR ANTIBODY SCREEN 30547 WENDI SCR POSITIVE Unknown URIC ACID 96097 URIC ACID 8.7 MG/DL 05/25/2011 Unknown PSA EQUIMOLAR JONATAN 31485 PSA EQ 2.79 NG/ML 2 Unknown LIPID GROUP 15550 HDL TEST 47 MG/DL 05/25/2011 Unknown LIPID GROUP 35922 TRIG 198 MG/DL 05/25/2011 Unknown LIPID GROUP 28485 TEST LDL 180 MG/DL 05/25/2011 Unknown LIPID GROUP 90936 CHOL 267 MG/DL 05/25/2011 Unknown LIPID GROUP 93091 RCHOL/HDL 5.68 RATIO 05/25/2011 Unknow n COMPREHENSIVE METABOLIC 39135 AST 21 U/L 2011 Unknown COMPREHENSIVE METABOLIC 75566 ALT 21 IU/L 2011 Unknown COMPREHENSIVE METABOLIC 20275 BUN 16 MG/DL 2011 Unknown COMPREHENSIVE METABOLIC 34586 ALBUMIN 4.4 GM/DL 2011 Unknown COMPREHENSIVE METABOLIC 32826 CHLORIDE 105 MMOL/L 05/25 Unknown COMPREHENSIVE METABOLIC 49901 BILI TOT 0.7 MG/DL 2011 Unknown COMPREHENSIVE METABOLIC 69995 ALK PHOS 60 U/L 2011 Unknown COMPREHENSIVE METABOLIC 10645 SODIUM 139 MMOL/L 05/25 Unknown COMPREHENSIVE METABOLIC 21884 CREATININE 0.92 MG/DL 05/11 Unknown COMPREHENSIVE METABOLIC 93025 CALCIUM 9.4 MG/DL 2011 Unknown COMPREHENSIVE METABOLIC 33789 POTASSIUM 4.1 MMOL/L 05/25 Unknown COMPREHENSIVE METABOLIC 96730 PROT TOT 7.0 GM/DL 2011 Unknown COMPREHENSIVE METABOLIC 91738 Glucose 108 MG/DL 2011 Unknown COMPREHENSIVE METABOLIC 96742 BICARB 25 MMOL/L 2011 Unknown COMPREHENSIVE METABOLIC 90609 ANION GAP 9 MEQ/L 2011 Unknown GFR CALC [id number] GFR AA >60 ML/MIN 05/25/2011 Unknown GFR CALC [id number] GFR NON-AA >60 ML/MIN 05/25/2011 Unknown COMPLETE BLOOD COUNT 29790 WBC 5.6 10e9/L 05/25/19 12 Unknown COMPLETE BLOOD COUNT 95050 RBC 5.01 10e12/L 2011 Unknown COMPLETE BLOOD COUNT 09356 HGB 15.8 g/dL 2 Unknown COMPLETE BLOOD COUNT 01624 HCT DET 46.1 % 2 Unknown COMPLETE BLOOD COUNT 46492 MCV 92.0 fL 2 Unknown COMPLETE BLOOD COUNT 40116 MCH 31.5 pg 2 Unknown COMPLETE BLOOD COUNT 28815 MCHC 34.3 g/dL 2 Unknown COMPLETE BLOOD COUNT 91081 PLT 246 10e9/L 05/25/19 12 Unknown COMPLETE BLOOD COUNT 40828 MPV 10.3 fL 2 Unknown COMPLETE BLOOD COUNT 81928 VERONIQUE % 47.1 % 2 Unknown COMPLETE BLOOD COUNT 36061 LY % 41.0 % 2 Unknown COMPLETE BLOOD COUNT 09272 MON % 8.9 % 2 Unknown COMPLETE BLOOD COUNT 37315 EOS % 2.5 % 2 Unknown COMPLETE BLOOD COUNT 25710 BASO % 0.5 % 2 Unknown COMPLETE BLOOD COUNT 60732 RDW 12.7 % 2 Unknown COMPLETE BLOOD COUNT 35578 ABS VERONIQUE 2.64 10e9/L 012 Unknown COMPLETE BLOOD COUNT 66342 ABS LYMPH 2.30 10e9/L 012 Unknown COMPLETE BLOOD COUNT 93011 ABS MONO 0.50 10e9/L 012 Unknown COMPLETE BLOOD COUNT 02324 ABS EOS 0.14 10e9/L 012 Unknown COMPLETE BLOOD COUNT 63908 ABS BASO 0.03 10e9/L 012 Unknown COMPLETE BLOOD COUNT 23021 RDW-SD 41.3 fL 2 Unknown COMPREHENSIVE METABOLIC 51727 AST 18 U/L 2010 Unknown COMPREHENSIVE METABOLIC 03421 ALT 14 IU/L 2010 Unknown COMPREHENSIVE METABOLIC 88995 BUN 12 MG/DL 2010 Unknown COMPREHENSIVE METABOLIC 39425 ALBUMIN 4.6 GM/DL 2010 Unknown COMPREHENSIVE METABOLIC 31003 CHLORIDE 102 MMOL/L 02/01 Unknown COMPREHENSIVE METABOLIC 11724 BILI TOT 0.6 MG/DL 2010 Unknown COMPREHENSIVE METABOLIC 09039 ALK PHOS 66 U/L 2010 Unknown COMPREHENSIVE METABOLIC 26124 SODIUM 139 MMOL/L 02/01 Unknown COMPREHENSIVE METABOLIC 90818 CREATININE 0.92 MG/DL 01/09 Unknown COMPREHENSIVE METABOLIC 48547 CALCIUM 9.8 MG/DL 2010 Unknown COMPREHENSIVE METABOLIC 40113 POTASSIUM 4.1 MMOL/L 02/01 Unknown COMPREHENSIVE METABOLIC 53503 PROT TOT 7.0 GM/DL 2010 Unknown COMPREHENSIVE METABOLIC 44078 Glucose 101 MG/DL 2010 Unknown COMPREHENSIVE METABOLIC 46690 BICARB 25 MMOL/L 2010 Unknown COMPREHENSIVE METABOLIC 26604 ANION GAP 12 MEQ/L 2010 Unknown GFR CALC [id number] GFR AA >60 ML/MIN 02/01/2011 Unknown GFR CALC [id number] GFR NON-AA >60 ML/MIN 02/01/2011 Unknown LIPID GROUP 94283 HDL TEST 44 MG/DL 02/01/2011 Unknown LIPID GROUP 22379 TRIG 157 MG/DL 02/01/2011 Unknown LIPID GROUP 86461 TEST LDL 193 MG/DL 02/01/2011 Unknown LIPID GROUP 91162 CHOL 268 MG/DL 02/01/2011 Unknown LIPID GROUP 53609 RCHOL/HDL 6.09 RATIO 02/01/2011 Unknow n FREE T4 66616 FREE T4 1.04 NG/DL 02/01/2011 Unknown COMPLETE BLOOD COUNT 14368 WBC 6.4 10e9/L 02/02/20 11 Unknown COMPLETE BLOOD COUNT 80926 RBC 4.56 10e12/L 2010 Unknown COMPLETE BLOOD COUNT 51966 HGB 14.4 g/dL 1 Unknown COMPLETE BLOOD COUNT 84122 HCT DET 43.0 % 1 Unknown COMPLETE BLOOD COUNT 30198 MCV 94.3 fL 1 Unknown COMPLETE BLOOD COUNT 46522 MCH 31.6 pg 1 Unknown COMPLETE BLOOD COUNT 25052 MCHC 33.5 g/dL 1 Unknown COMPLETE BLOOD COUNT 43892 PLT 300 10e9/L 02/02/20 11 Unknown COMPLETE BLOOD COUNT 96519 MPV 9.9 fL 1 Unknown COMPLETE BLOOD COUNT 15364 VERONIQUE % 38.5 % 1 Unknown COMPLETE BLOOD COUNT 99048 LY % 49.1 % 1 Unknown COMPLETE BLOOD COUNT 44151 MON % 10.1 % 1 Unknown COMPLETE BLOOD COUNT 90656 EOS % 1.7 % 1 Unknown COMPLETE BLOOD COUNT 15950 BASO % 0.6 % 1 Unknown COMPLETE BLOOD COUNT 44998 RDW 15.1 % 1 Unknown COMPLETE BLOOD COUNT 47238 ABS VERONIQUE 2.46 10e9/L 011 Unknown COMPLETE BLOOD COUNT 79991 ABS LYMPH 3.14 10e9/L 011 Unknown COMPLETE BLOOD COUNT 58381 ABS MONO 0.65 10e9/L 011 Unknown COMPLETE BLOOD COUNT 36651 ABS EOS 0.11 10e9/L 011 Unknown COMPLETE BLOOD COUNT 45572 ABS BASO 0.04 10e9/L 011 Unknown COMPLETE BLOOD COUNT 77213 RDW-SD 50.6 fL 1 Unknown THYROID STIMULATING HORMONE 18652 TSH 1.128 uIU/ML 02/01/2011 Unknown PSA EQUIMOLAR JONATAN 69759 PSA EQ 3.83 NG/ML 1 Unknown VCA AB G/M [id number] EBV G VCA 3.34 12/03/2010 Unknown VCA AB G/M 4727162 EBV M VCA 0.12 12/03/2010 Unknown EB GARY AG 3351946 EB GARY AG 0.47 12/03/2010 Unknown EB NUCL AB 1019527 EB NUCL AB 3.72 12/03/2010 Unknown COMPLETE BLOOD COUNT 96430 WBC 8.0 10e9/L 12/03/19 11 Unknown COMPLETE BLOOD COUNT 60004 RBC 4.93 10e12/L 2010 Unknown COMPLETE BLOOD COUNT 30360 HGB 15.7 g/dL 1 Unknown COMPLETE BLOOD COUNT 07936 HCT DET 45.4 % 1 Unknown COMPLETE BLOOD COUNT 53238 MCV 92.1 fL 1 Unknown COMPLETE BLOOD COUNT 45061 MCH 31.8 pg 1 Unknown COMPLETE BLOOD COUNT 91594 MCHC 34.6 g/dL 1 Unknown COMPLETE BLOOD COUNT 45557 PLT 248 10e9/L 12/03/19 11 Unknown COMPLETE BLOOD COUNT 34116 MPV 10.4 fL 1 Unknown COMPLETE BLOOD COUNT 65186 VERONIQUE % 74.0 % 1 Unknown COMPLETE BLOOD COUNT 52019 LY % 19.6 % 1 Unknown COMPLETE BLOOD COUNT 32913 MON % 5.2 % 1 Unknown COMPLETE BLOOD COUNT 71187 EOS % 1.1 % 1 Unknown COMPLETE BLOOD COUNT 76898 BASO % 0.1 % 1 Unknown COMPLETE BLOOD COUNT 63451 RDW 12.5 % 1 Unknown COMPLETE BLOOD COUNT 89920 ABS VERONIQUE 5.92 10e9/L 011 Unknown COMPLETE BLOOD COUNT 46970 ABS LYMPH 1.57 10e9/L 011 Unknown COMPLETE BLOOD COUNT 73018 ABS MONO 0.42 10e9/L 011 Unknown COMPLETE BLOOD COUNT 69104 ABS EOS 0.09 10e9/L 011 Unknown COMPLETE BLOOD COUNT 03095 ABS BASO 0.01 10e9/L 011 Unknown COMPLETE BLOOD COUNT 06231 RDW-SD 41.1 fL 1 Unknown URIC ACID 44065 URIC ACID 9.3 MG/DL 12/02/2010 Unknown Procedures Procedure Codes Date DEXAMETHASONE SODIUM PHOS CPT-4: J1100 05/31/2019 THER/PROPH/DIAG INJ SC/IM CPT-4: 80718 05/31/2019 THER/PROPH/DIAG INJ SC/IM CPT-4: 67712 05/17/2019 TRIAMCINOLONE ACET INJ NOS CPT-4: J3301 05/17/2019 DRAINAGE OF SKIN ABSCESS CPT-4: 85107 01/23/2019 AEROBIC WOUND CULTURE & STN CPT-4: 32852 01/23/2019 ROUTINE VENIPUNCTURE CPT-4: 93295 03/29/2017 ASSAY THYROID STIM HORMONE CPT-4: 59261 03/29/2017 ASSAY OF FREE THYROXINE CPT-4: 29933 03/29/2017 COMPREHEN METABOLIC PANEL CPT-4: 01434 03/29/2017 COMPLETE CBC W/AUTO DIFF WBC CPT-4: 89535 03/29/2017 LIPID PANEL CPT-4: 07664 03/29/2017 ASSAY OF BLOOD/URIC ACID CPT-4: 58887 03/29/2017 RBC SED RATE AUTOMATED CPT-4: 75167 03/29/2017 ROUTINE VENIPUNCTURE CPT-4: 79249 03/15/2017 ACUTE HEPATITIS PANEL CPT-4: 15018 03/15/2017 HIV-1/HIV-2 1 RESULT ANTBDY CPT-4: 85161 03/15/2017 EXC TR-EXT B9+SHASHA 0.5 CM< CPT-4: 18621 03/15/2017 EXC TR-EXT B9+SHASHA 1.1-2 CM CPT-4: 19037 03/15/2017 URINALYSIS NONAUTO W/O SCOPE CPT-4: 59043 01/07/2015 URINE CULTURE/ COLONY COUNT CPT-4: 87435 01/07/2015 ROUTINE VENIPUNCTURE CPT-4: 72545 01/07/2015 ASSAY OF FREE THYROXINE CPT-4: 41189 01/07/2015 ASSAY THYROID STIM HORMONE CPT-4: 77256 01/07/2015 COMPREHEN METABOLIC PANEL CPT-4: 62531 01/07/2015 COMPLETE CBC W/AUTO DIFF WBC CPT-4: 45228 01/07/2015 LIPID PANEL CPT-4: 17707 01/07/2015 ASSAY OF PSA TOTAL CPT-4: 72092 01/07/2015 ASSAY OF BLOOD/URIC ACID CPT-4: 77226 01/07/2015 ROUTINE VENIPUNCTURE CPT-4: 04215 12/11/2013 ASSAY OF FREE THYROXINE CPT-4: 96002 12/11/2013 ASSAY THYROID STIM HORMONE CPT-4: 55533 12/11/2013 COMPREHEN METABOLIC PANEL CPT-4: 88122 12/11/2013 COMPLETE CBC W/AUTO DIFF WBC CPT-4: 50224 12/11/2013 LIPID PANEL CPT-4: 84056 12/11/2013 ASSAY OF BLOOD/URIC ACID CPT-4: 38707 12/11/2013 ASSAY OF PSA TOTAL CPT-4: 76528 12/11/2013 URINE CULTURE/ COLONY COUNT CPT-4: 54930 01/02/2013 AEROBIC WOUND CULTURE & STN CPT-4: 58410 10/10/2011 DRAINAGE OF SKIN ABSCESS CPT-4: 38477 10/10/2011 ASSAY OF CREATININE CPT-4: 07655 09/15/2011 ASSAY OF BLOOD/URIC ACID CPT-4: 49553 09/15/2011 ROUTINE VENIPUNCTURE CPT-4: 42276 07/28/2011 ANTINUCLEAR ANTIBODIES CPT-4: 72518 07/28/2011 RBC SED RATE AUTOMATED CPT-4: 84205 07/28/2011 ASSAY OF BLOOD/URIC ACID CPT-4: 32202 07/28/2011 COMPREHEN METABOLIC PANEL CPT-4: 99916 07/28/2011 C-REACTIVE PROTEIN CPT-4: 83724 07/28/2011 THYRO PERX CPT-4: 4153379 07/28/2011 DNA AB CPT-4: 1782781 07/28/2011 SJOGRENS CPT-4: 1801614 07/28/2011 ASSAY OF FREE THYROXINE CPT-4: 71105 07/28/2011 ASSAY THYROID STIM HORMONE CPT-4: 32768 07/28/2011 ROUTINE VENIPUNCTURE CPT-4: 15435 05/25/2011 COMPREHEN METABOLIC PANEL CPT-4: 44735 05/25/2011 COMPLETE CBC W/AUTO DIFF WBC CPT-4: 87902 05/25/2011 ANTINUCLEAR ANTIBODIES CPT-4: 60555 05/25/2011 RHEUMATOID FACTOR QUANT CPT-4: 16244 05/25/2011 ASSAY OF PSA TOTAL CPT-4: 57580 05/25/2011 ASSAY OF BLOOD/URIC ACID CPT-4: 97058 05/25/2011 LIPID PANEL CPT-4: 04687 05/25/2011 ROUTINE VENIPUNCTURE CPT-4: 52428 02/01/2011 ASSAY OF FREE THYROXINE CPT-4: 48615 02/01/2011 ASSAY THYROID STIM HORMONE CPT-4: 51653 02/01/2011 COMPREHEN METABOLIC PANEL CPT-4: 33698 02/01/2011 COMPLETE CBC W/AUTO DIFF WBC CPT-4: 99864 02/01/2011 LIPID PANEL CPT-4: 85398 02/01/2011 ASSAY OF PSA TOTAL CPT-4: 46336 02/01/2011 ROUTINE VENIPUNCTURE CPT-4: 48307 12/02/2010 ASSAY OF BLOOD/URIC ACID CPT-4: 67727 12/02/2010 EB VIRUS VCA G/M + EBNA + EA CPT-4: 40275|60360 x 2|59955 COMPLETE CBC W/AUTO DIFF WBC CPT-4: 15756 12/02/2010 COMPREHEN METABOLIC PANEL CPT-4: 15742 09/14/2009 ASSAY OF BLOOD/URIC ACID CPT-4: 07729 09/14/2009 ROUTINE VENIPUNCTURE CPT-4: 27810 09/14/2009 URINALYSIS NONAUTO W/O SCOPE CPT-4: 95884 09/01/2009 Vital Signs Date Vital 05/31/2019 Blood [...] 1: 118/64 Code: 8480-6 BMI: 29.7 Code: 14232-2 Heart Rate 1: 100 bpm Height: 5'6" Respiratory Rate: 22 bpm SpO2: 95% Tempera ture: 36.7 (C) / 98.0 (F) Weight: 187 lbs 02/27/2017 Blood Pressure 1: 132/76 Code: 8480-6 BMI: 30.8 Code: 90120-5 Heart Rate 1: 96 bpm Height: 5'6" Respiratory Rate: 22 bpm SpO2: 98% Tempera ture: 36.6 (C) / 97.8 (F) Weight: 194 lbs 03/31/2015 Blood Pressure 1: 128/90 Code: 8480-6 Heart Rate 1: 88 bpm Respiratory Rate: 20 bpm Temperature: 36.9 (C) / 98.4 (F) Weight: 192 lbs 01/07/2015 Blood Pressure 1: 132/80 Code: 8480-6 BMI: 30.2 Code: 22457-8 Heart Rate 1: 78 bpm Height: 5'6" Respiratory Rate: 22 bpm Temperature: 36 .7 (C) / 98.1 (F) Weight: 190 lbs 04/15/2014 Blood Pressure 1: 136/88 Code: 8480-6 BMI: 31.0 Code: 19845-0 Heart Rate 1: 84 bpm Height: 5'6" Respiratory Rate: 20 bpm Temperature: 36 .1 (C) / 97.0 (F) Weight: 192 lbs 12/10/2013 Blood Pressure 1: 142/90 Code: 8480-6 BMI: 29.1 Code: 21802-3 Heart Rate 1: 72 bpm Height: 5'7" Respiratory Rate: 20 bpm Temperature: 36 .6 (C) / 97.8 (F) Weight: 186 lbs 05/02/2013 Blood Pressure 1: 146/96 Code: 8480-6 BMI: 30.5 Code: 00927-1 Heart Rate 1: 88 bpm Height: 5'7" Respiratory Rate: 20 bpm Temperature: 37 .0 (C) / 98.6 (F) Weight: 195 lbs 01/02/2013 Blood Pressure 1: 132/84 Code: 8480-6 BMI: 30.2 Code: 88821-2 Heart Rate 1: 80 bpm Height: 5'7" Respiratory Rate: 20 bpm Temperature: 36 .9 (C) / 98.4 (F) Weight: 193 lbs 10/10/2011 Blood Pressure 1: 122/68 Code: 8480-6 BMI: 35.7 Code: 68444-4 Heart Rate 1: 84 bpm Height: 5'2" Temperature: 36.9 (C) / 98.5 (F) Weight: 195 lbs 08/12/2011 Blood Pressure 1: 110/80 Code: 8480-6 BMI: 36.9 Code: 41322-4 Heart Rate 1: 80 bpm Height: 5'2" Temperature: 36.4 (C) / 97.6 (F) Weight: 202 lbs 08/04/2011 Blood Pressure 1: 126/80 Code: 8480-6 BMI: 37.9 Code: 07816-2 Heart Rate 1: 76 bpm Height: 5'2" Respiratory Rate: 20 bpm Temperature: 37 .0 (C) / 98.6 (F) Weight: 207 lbs 05/24/2011 Blood Pressure 1: 122/82 Code: 8480-6 BMI: 37.7 Code: 91154-0 Heart Rate 1: 68 bpm Height: 5'2" Temperature: 36.7 (C) / 98.1 (F) Weight: 206 lbs 04/15/2011 Blood Pressure 1: 128/82 Code: 8480-6 BMI: 37.1 Code: 52217-2 Heart Rate 1: 68 bpm Height: 5'2" [...] 1: 106/62 Code: 8480-6 BMI: 36.8 Code: 37387-6 Heart Rate 1: 90 bpm Height: 5'2" SpO2: 94% Temperature: 36.4 (C) / 97.6 (F) Weight: 201 lbs 12/02/2010 Blood Pressure 1: 142/90 Code: 8480-6 BMI: 36.8 Code: 33818-5 Heart Rate 1: 96 bpm Height: 5'2" [...] success Encounters Encounter Performer Location Codes Date ([id number]) OFFICE/OUTPATIENT VISIT EST Diagnosis: Acute contact dermatitis[ICD10: L25.9] Azragamal BYRNE DO [facility] CPT-4: 10388 05/31/2019 ([id number]) OFFICE/OUTPATIENT VISIT EST Diagnosis: Acute contact dermatitis[ICD10: L25.9] Diagnosis: Acute sinusitis[ICD10: J01.90] [facility] 33941 05/17/2019 ([id number]) OFFICE/OUTPATIENT VISIT EST Diagnosis: Acute gastritis without bleeding[ICD10: K29.00] Diagnosis: Essential (primary) hypertension[ICD10: I10] Diagnosis: Hyperlipidemia, unspecified[ICD10: E78.5] Azra BYRNE [facility] CPT-4: 53451 10/31/2018 ([id number]) OFFICE/OUTPATIENT VISIT EST Diagnosis: Acute gastritis without bleeding[ICD10: K29.00] Azra BYRNE [facility] CPT-4: 01050 01/18/2018 ([id number]) OFFICE/OUTPATIENT VISIT EST Diagnosis: Hyperlipidemia, unspecified[ICD10: E78.5] Diagnosis: Essential (primary) hypertension[ICD10: I10] Diagnosis: Weakness[ICD10: R53.1] Diagnosis: Sebaceous cyst[ICD10: L72.3] Diagnosis: Idiopathic gout, unspecified site[ICD10: M10.00] [facility]: 18849 03/29/2017 OFFICE/OUTPATIENT VISIT EST Diagnosis: Pain in right knee[ICD10: M25.561] [facility]: 45055 03/13/2017 OFFICE/OUTPATIENT VISIT EST Diagnosis: Pain in right leg[ICD10: M79.604] Diagnosis: Sebaceous cyst[ICD10: L72.3] Azra BYRNE [facility] CPT-4: 80426 02/27/2017 OFFICE/OUTPATIENT VISIT EST Diagnosis: Local infection of the skin and subcutaneous tissue, unspecified[ICD10: L08.9] Diagnosis: Essential (primary) hypertension[ICD10: I10] Diagnosis: Hyperlipidemia, unspecified[ICD10: E78.5] Dagmar Ahmadi SYLVIE COBB [facility] CPT-4: 13731 03/31/2015 ([id number]) PREV VISIT EST AGE 40-64 Diagnosis: History of chest pain[ICD9: V13.89] Diagnosis: Right flank pain[ICD9: 789.09] Diagnosis: ROUTINE MEDICAL EXAM[ICD9: V70.0] Diagnosis: HYPERTENSION[ICD9: 401.9] Diagnosis: HYPERLIPIDEMIA NEC/NOS[ICD9: 272.4] Diagnosis: Colon polyps[ICD9: 211.3] Diagnosis: HEMATURIA NOS[ICD9: 599.70] Dagmar ZhaoNoemi SYLVIE SammiFrancisco AGAPITO [facility] CPT-4: 56048 01/07/2015 OFFICE/OUTPATIENT VISIT EST Diagnosis: COUGH[ICD9: 786.2] Diagnosis: Rectal itching[ICD9: 698.0] Dagmar PavelNoemi SAINZ SammiFrancisco [facility] CPT-4: 90665 04/15/2014 ([id number]) OFFICE/OUTPATIENT VISIT EST Diagnosis: ROUTINE MEDICAL EXAM[ICD9: V70.0] Diagnosis: GOUT[ICD9: 274.9] Diagnosis: HYPERLIPIDEMIA NEC/NOS[ICD9: 272.4] Diagnosis: HYPERTENSION[ICD9: 401.9] Sylvie Yvanjean claude SAINZ SammiFrancisco [facility]AN SIL[facility]IO [facility] CPT-4: 82613 12/11/2013 ([id number]) OFFICE/OUTPATIENT VISIT EST Diagnosis: Shingles[ICD9: 053.9] Sylvie Yvanjean claude Phillips [facility] CPT-4: 17391 12/10/2013 ([id number]) OFFICE/OUTPATIENT VISIT EST Diagnosis: HYPERTENSION[ICD9: 401.9] Diagnosis: Colon polyps[ICD9: 211.3] Diagnosis: Stress reaction[ICD9: 308.9] Sylvie Yvanjean claude SAINZ SammiFrancisco AGAPITO [facility] CPT-4: 93931 05/02/2013 ([id number]) OFFICE/OUTPATIENT VISIT EST Diagnosis: URINARY TRACT INFECTION[ICD9: 599.0] Sylvie Phillips [facility]: 73671 01/02/2013 OFFICE/OUTPATIENT VISIT EST Diagnosis: CELLULITIS OF TRUNK[ICD9: 682.2] Diagnosis: SPRAIN SHOULDER/ARM[ICD9: 840.9] Liza Phillips [facility] CPT-4: 69860 10/10/2011 ([id number]) OFFICE/OUTPATIENT VISIT EST Diagnosis: GOUT[ICD9: 274.9] Sylvie WILSONLINE SammiFrancisco [facility]O [facility] CPT-4: 56412 09/15/2011 OFFICE/OUTPATIENT VISIT EST Diagnosis: DIARRHEA[ICD9: 787.91] Sylvie Yvanscarlettdelmi WILSONSYLVIE SammiFrancisco [facility] CPT-4: 57187 08/12/2011 ([id number]) OFFICE/OUTPATIENT VISIT EST Diagnosis: GOUT[ICD9: 274.9] Diagnosis: Positive WENDI (antinuclear antibody)[ICD9: 795.79] Sylvie WILSONLINE SammiFrancisco [facility]O [facility] CPT-4: 33665 08/04/2011 OFFICE/OUTPATIENT VISIT EST Diagnosis: Rash[ICD9: 782.1] Diagnosis: Joint pain[ICD9: 719.40] Diagnosis: Hyperlipidemia[ICD9: 272.4] Sylvie WILSONRON Kulkarni [facility] CPT-4: 55949 05/24/2011 OFFICE/OUTPATIENT VISIT EST Diagnosis: PHARYNGITIS, ACUTE[ICD9: 462] Diagnosis: COUGH[ICD9: 786.2] Diagnosis: SINUSITIS, ACUTE[ICD9: 461.9] Sylvie WILSONLINE SammiFrancisco [facility]O [facility] CPT-4: 37258 04/15/2011 OFFICE/OUTPATIENT VISIT EST Diagnosis: Clavicle fracture[ICD9: 810.00] Sylvie Yvanscarlettdelmi WILSONSYLVIE SammiFrancisco [facility] CPT-4: 74582 01/13/2011 OFFICE/OUTPATIENT VISIT EST Diagnosis: Clavicle pain[ICD9: 719.41] Sylvie WILSONRON Kulkarni [facility] CPT-4: 23141 12/23/2010 OFFICE/OUTPATIENT VISIT EST Diagnosis: Arm pain[ICD9: 729.5] Diagnosis: SPASM OF MUSCLE[ICD9: 728.85] Diagnosis: Neck pain[ICD9: 723.1] Sylvie Yvanjean claude Phillips [facility]MARLIN C[facility] CPT-4: 91118 12/15/2010 OFFICE/OUTPATIENT VISIT EST Diagnosis: HYPERTENSION[ICD9: 401.9] Diagnosis: PHARYNGITIS, ACUTE[ICD9: 462] Diagnosis: MALAISE AND FATIGUE[ICD9: 780.79] Diagnosis: GOUT[ICD9: 274.9] Sylvieron CHAHAL CPT-4: 95493 12/02/2010 ([id number]) OFFICE/OUTPATIENT VISIT, EST Sylvie CHAHAL CPT-4: 62707 04/19/2010 ([id number]) OFFICE/OUTPATIENT VISIT, EST Sylvie CHAHAL CPT-4: 64436 04/14/2010 ([id number]) OFFICE/OUTPATIENT VISIT, NHAN BYRNE DO [facility] CPT-4: 61250 09/01/2009 Plan of Care Planned Activity Notes [...] ICD-10 : L25.9 05/31/2019 Appointment: Azra Bradley [address] [place] [address] ACUTE ILLNESS 05/31/2019 Patient Education: prednisone- [employer] Coupon [phone] [email or web address].Adform/samplemd/resources/getResource/61/[email or web address] Completed 05/31/2019 Visit Diagnosis Plan: Acute contact dermatitis Discuss ion: Kenalog 40mg IM now Cover with [employer] Call in 1week on how doing Medrol Dose Pack ICD-9 : 692.9 ICD-10 : L25.9 05/17/2019 Appointment: Sylvie Byrne WPtel: [phone] ACUTE ILLNESS 05/17/2019 Patient Education: Medrol (Nicholas)- [employer] Coupon [phone] [id number] https://www.Adform/samplemd/resources/getResource/61/[email or web address] Completed 05/17/2019 Visit Diagnosis Plan: Abscess of chest wall Discussion : patient has large amount of induration still noted despite recent drainage and antibiotics. dr. najera's office was called and they were able to see patient today. patient was sent over there for possible surgery. ICD-9 : 682.2 ICD-10 : L02.213 01/25/2019 Appointment: Azra Bradley [address] [place], [place] [address] FOLLOW UP 01/25/2019 Visit Diagnosis Plan: Abscess [...] ICD-10 : L02.213 01/23/2019 Appointment: Azra Bradley [address] [place] [address] [facility] SURGERY 01/23/2019 Patient Education: clindamycin HCl- [employer] Coupon [id number] https://[email or web address]/samplemd/resources/getResource/61/[email or web address]-[email or web address]-5dal-98 Completed 01/23/2019 Appointment: Azra Bradley [address] [place], [place] [address] CANCELED 01/16/2019 Visit Diagnosis Plan: Acute gastritis [...] ICD-10 : E78.5 10/31/2018 [facility] [facility] 10/31/2018 Patient Education: High Blood [...] ICD-10 : K29.00 01/18/2018 Appointment: Azra Bradley 504 [facility] ACUTE ILLNESS 01/18/2018 Patient Education: Patient Medication Summary Completed 01/18/2018 Appointment: Sylvie Byrne WPtel: [phone] [facility] [facility] 03/29/2017 Patient Education: Patient Medication Summary [...] : L72.3 03/15/2017 Appointment: [facility] [facility] 03/15/2017 Patient Education: Patient Medication [...] : M25.561 03/13/2017 Appointment: Azra Bradley [address] [facility] ACUTE ILLNESS 03/13/2017 Patient Education: Patient Medication Summary Completed 03/13/2017 Care Plan: X-RAY EXAM OF KNEE 1 OR 2 ATUL [place] : 43596-7 Pending 03/13/2017 Visit Diagnosis Plan: Pain in [...] ICD-10 : L72.3 02/27/2017 Appointment: Azra Bradley [address] [place] [address] ACUTE ILLNESS 02/27/2017 Patient Education: Patient Medication Summary Completed 02/27/2017 Appointment: Katerina Sousa WPtel: [facility] [address] ACUTE ILLNESS 08/21/2015 Visit Plan: Has been off of Pravastatin. Will resume Pravastitin 20mg. and re- check labs in 3 months, Resume Lisinopril and Allopurinol Warm moist compresses to left chest lesion Complete doxycycline Return check after antibiotics completed if no improvement in lesion to left chest will refer for removal of nodular skin lesion upper right back. 03/31/2015 Appointment: Dagmar Ahmadi WPtel: [facility] [place] [phone] 03/30 Confirmed ~sl FOLLOW UP 03/31/2015 Patient Education: Patient Medication Summary Completed 03/31/2015 Visit Plan: CBC, CMP, TSH, Free T4, Lipi d Panel, Uric Acid, PSA, EKG Urine culture today Increase fluids to >120cc's daily. Notify if flank pain increases. Resume Lisinopril 20 mg PO daily Resume Allopurinol 100 mg Ciprofloxacin 500 mg PO bid Scheudule appt. for follow-up Colonscopy - [place] 01/07/2015 Appointment: Dagmar Ahmadi WPtel: [address] [place] [address] 01/06 appointment confirmed cn Annual Well Visit 01/07/2015 Patient Education: Patient Medication Summary Completed 01/07/2015 Patient Education: [facility] - Saving [employer] - Lisinopril - 18-64 - Dynamic Portal ID Completed 01/07/2015 Appointment: Sylvie Byrne WPtel: [address] [place] [address] ACUTE ILLNESS 08/26/2014 Appointment: Dagmar Ahmadi WPtel: [address] [place] [address] ACUTE ILLNESS 04/15/2014 Patient Education: Patient Medication Summary Completed 04/15/2014 Appointment: Sylvie Byrne WPtel: [address] [place] [address] US LAB 12/11/2013 Patient Education: Patient Medication Summary Completed 12/11/2013 Visit Plan: Check CBC, CMP, TSH, Free T4 , Lipids, uric acid, PSA--pt will return in AM for fasting lab Finish acyclovir Discussed Zostavax down road 12/10/2013 Appointment: Sylvie Byrne WPtel: [address] [place] [address] 12/06 left message FOLLOW UP 12/10/2013 Patient Education: Patient Medication Summary Completed 12/10/2013 Visit Plan: Lisinopril 20mg daily Stress Reducers and trial of fluoxetine 10mg q am Proceed with colonoscopy Check fasting lab 05/02/2013 Appointment: Sylvie Byrne WPtel: [address] [place] [address] ACUTE ILLNESS 05/02/2013 Patient Education: Patient Medication Summary Completed 05/02/2013 Appointment: Sylvie Byrne WPtel: [address] [place] [address] ACUTE ILLNESS 01/02/2013 Patient Education: Patient Medication Summary Completed 01/02/2013 Appointment: Liza Ragsdale WPtel: [address] [place] [address] ACUTE ILLNESS 10/10/2011 Patient Education: Patient Medication Summary Completed 10/10/2011 Appointment: Sylvie Byrne WPtel: [address] [place], [place] [phone] [place] LAB 09/15/2011 Patient Education: Patient Medication [...] Will seek re-eval if symptoms worsen or 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 08/12/2011 Appointment: Liza Ragsdale WPtel: [address] [place] [address] ACUTE ILLNESS 08/12/2011 Patient Education: Patient Medication Summary Completed 08/12/2011 Visit Plan: Continue increased dose of a llopurinol and daily colcrys Recheck thyroid lab, uric acid and PSA in 3mos Will hold on NSAID at this time due to history of GERD 08/04/2011 Appointment: Sylvie Byrne WPtel: [address] [place] [address] FOLLOW UP 08/04/2011 Patient Education: Patient Medication Summary Completed 08/04/2011 Appointment: Sylvie Byrne WPtel: [address] [place], [place] [phone] [place] LAB 07/28/2011 Patient Education: Patient Medication Summary Completed 07/28/2011 Appointment: Sylvie Byrne WPtel: [address] [place], [place] [phone] [place] LAB 05/25/2011 Patient Education: Patient Medication [...] at night. 05/24/2011 Appointment: Liza Ragsdale WPtel: [address] [place] [address] ACUTE ILLNESS 05/24/2011 Patient Education: Patient Medication Summary Completed 05/24/2011 Visit Plan: codeine/guif cough syrup and cefdinir are phoned to [facility]. Discussed fluids and rest. Pt. will notify if symptoms persist or worsen. 04/15/2011 Appointment: Liza Ragsdale WPtel: [address] [place] [address] ACUTE ILLNESS 04/15/2011 Patient Education: Patient Medication Summary Completed 04/15/2011 Appointment: Sylvie Byrne WPtel: [address] [place] [address] LAB 02/01/2011 Patient Education: Patient Medication Summary Completed 02/01/2011 Visit Plan: Repeat clavicle x-ray in 6wk s Check bone density 01/13/2011 Appointment: Sylvie Byrne WPtel: [address] [place] [address] [place] FOLLOW UP 01/13/2011 Patient Education: Patient Medication Summary Completed 01/13/2011 Visit Plan: Check right clavicle and alda ulder x-ray Continue Vimovo and flexeril 12/23/2010 Appointment: Sylvie Byrne WPtel: [address] [place] [address] [place] FOLLOW UP 12/23/2010 Patient Education: Patient Medication Summary Completed 12/23/2010 Appointment: Sylvie Byrne WPtel: [address] [place] [address] [place] Follow UP 12/15/2010 Patient Education: Patient [...] BP check. 12/02/2010 Appointment: Liza Ragsdale WPtel: [address] [place] [address] ACUTE ILLNESS 12/02/2010 Patient Education: Patient Medication Summary Completed 12/02/2010 Care Plan: ASSAY OF BLOOD/URIC ACID Pendi ng 12/02/2010 Care Plan: VCA AB G/M Pending 2010 Care Plan: EB GARY AG Pending 2010 Care Plan: EB NUCL AB Pending 2010 Appointment: Sylvie Byrne WPtel: [address] [place] [address] FOLLOW UP 11/18/2010 Visit Plan: benadryl 25 mg tab QHS. 12.5 mg tab every 8 hrs during the day. Pt. will notify if symptoms worsen. No facial edema present. 04/19/2010 Appointment: Liza Ragsdale WPtel: [address] [place], [place] [phone] FOLLOW UP 04/19/2010 Patient Education: Patient Medication [...] no improvement. 04/14/2010 Appointment: Liza Ragsdale WPtel: [address] [place], [place] [id number] ACUTE ILLNESS 04/14/2010 Patient Education: Patient Medication Summary Completed 04/14/2010 Appointment: Liza Ragsdale WPtel: [address] [place] [address] ACUTE ILLNESS 03/12/2010 [facility]ment[facility]Franc[facility] [phone] [id number] 09/14/2009 Patient Education: Patient Medication Summary Completed 09/14/2009 Appointment: Syl[facility] ByrneFrancisco [facility] [phone] [facility] [id number] ACUTE ILLNESS 09/01/2009 Patient Education: Patient Medication [...] 100 mg Ciprofloxacin 500 mg PO bid [facility] appt. for follow-up Colonscopy - [place] . 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 . Continue increased dose of [...] cough syrup and cefdinir are phoned to [facility]. Discussed fluids and rest. Pt. will [...]
--- OUTSIDE RECORDS SUMMARY | 2019-10-17 10:35 | XMS REPORT | CCD ---
Author Author Renan Byrne D.O. Organization [facility] Address [address] [place] [address] Phone Care Team Providers Care C Software Engineer Name Role Phone Sylvie Byrne D.O., PP Unavailable CCM Unavailable Summary Purpose Interface Exchange Insurance Providers Payer name Policy type / Coverage type Covered green party ID Effective Begin Date Effective End Date WPS MEDICARE PART B [place] Medicare Part B [id number] Unknown [facility] Medicare Part B [id number] Unknown Family History Family History data not found Social History Social History Element Codes Description Effective Dates Tobacco history SNOMED CT: 532854664 Nonsmoker 12/02/2010 Allergies, Adverse Reactions, Alerts Substance [...] Fill Instructions prednisone 20 mg tablet RxNorm: 289934 1 Tablet(s) Oral two latonia es a day 05/31/2019 06/05/2019 Active Elimite 5 % topical cream RxNorm: 013194 Application To pical QPM from head to toe 05/17/2019 07/16/2019 Active Medrol (Nicholas) 4 mg tablets in a dose pack RxNorm: 652984 6 Tablet(s) Oral QD --then as directed 05/17/2019 05/23/2019 Inactive Osteo Bi-Flex 250 mg-200 mg tablet RxNorm: 372787 2 Tablet(s) O ral QD 01/23/2019 No Stop Date Active clindamycin HCl 300 mg capsule RxNorm: 574811 2 Capsule (s) Oral three times a day 01/23/2019 01/30/2019 Inactive Flagyl 500 mg tablet RxNorm: 437458 1 Tablet(s) PO BID 10/31/2018 Inactive lisinopril 20 mg tablet RxNorm: 829264 1 Tablet(s) PO QD for bl ood pressure 09/13/2018 12/11/2018 Inactive allopurinol 100 mg tablet RxNorm: 352770 1 Tablet(s) PO QD 09/14/19 19 12/11/2018 Inactive Flagyl 500 mg tablet RxNorm: 087010 1 Tablet(s) PO BID 01/18/2018 Inactive Cipro 250 mg tablet RxNorm: 167162 1 Tablet(s) PO BID 01/18/201801/08 Inactive lisinopril 20 mg tablet RxNorm: 791110 1 Tablet(s) PO QD for bl ood pressure 11/06/2017 02/03/2018 Inactive allopurinol 100 mg tablet RxNorm: 599955 1 Tablet(s) PO QD 11/07/19 18 02/03/2018 Inactive allopurinol 100 mg tablet RxNorm: 233577 1 Tablet(s) PO QD 04/11/19 18 10/07/2017 Inactive lisinopril 20 mg tablet RxNorm: 684745 1 Tablet(s) PO QD for bl ood pressure 04/07/2017 11/05/2017 Inactive prednisone 20 mg tablet RxNorm: 984840 2 Tablet(s) PO QD 03/15/2017 1 05/18/2016 Inactive tramadol 50 mg tablet RxNorm: 928656 1-2 Tablet(s) PO TID as needed 03/13/2017 08/06/2017 Inactive Medrol (Nicholas) 4 mg tablets in a dose pack RxNorm: 898097 Tablet(s) PO As Directed 02/28/2017 08/01/2017 Inactive allopurinol 100 mg tablet RxNorm: 711803 1 Tablet(s) PO QD 04/11/19 17 04/11/2017 Inactive lisinopril 20 mg tablet RxNorm: 408522 1 Tablet(s) PO QD for bl ood pressure 04/11/2016 04/07/2017 Inactive pravastatin 20 mg tablet RxNorm: 437449 1 Tablet(s) PO QD 01/13/2016 02/26/2017 Inactive pravastatin 20 mg tablet RxNorm: 629224 TAKE 1 TABLET DAILY 016 01/13/2016 Inactive pravastatin 40 mg tablet RxNorm: 145751 1 Tablet(s) PO QD 03/31/2015 03/31/2015 Inactive pravastatin 20 mg tablet RxNorm: 215456 1 Tablet(s) PO QD 03/31/2015 06/28/2015 Inactive doxycycline hyclate 100 mg capsule RxNorm: 1625304 1 Capsule(s) PO BID 03/31/2015 04/09/2015 Inactive mupirocin 2 % topical ointment RxNorm: 033487 Apply TOP BID to affected lesions 03/31/2015 08/01/2017 Inactive pravastatin 40 mg tablet RxNorm: 470755 1 Tablet(s) PO QD 01/08/2015 03/30/2015 Inactive lisinopril 20 mg tablet RxNorm: 046180 1 Tablet(s) PO QD for bl ood pressure 01/07/2015 12/31/2015 Inactive allopurinol 100 mg tablet RxNorm: 889848 1 Tablet(s) PO QD 01/08/20 15 04/10/2016 Inactive ciprofloxacin 500 mg tablet RxNorm: 814488 1 Tablet(s) PO BID 01/0701/13/2015 Inactive doxycycline hyclate 100 mg capsule RxNorm: 9634490 1 Capsule(s) PO BID 04/15/2014 04/24/2014 Inactive fluoxetine 10 mg capsule RxNorm: 395335 1 Capsule(s) PO QAM 014 04/14/2014 Inactive lisinopril 20 mg tablet RxNorm: 377437 1 Tablet(s) PO QD for bl ood pressure 05/02/2013 04/26/2014 Inactive Cipro 500 mg tablet RxNorm: 537456 1 Tablet(s) PO BID 01/02/201312/10 Inactive Cipro 500 mg tablet RxNorm: 175308 1 Tablet(s) PO BID 01/02/20130 04/2012 Inactive doxycycline hyclate 100 mg Cap RxNorm: 622231 1 Capsule(s) PO BID 0 10/10/2011 10/19/2011 Inactive Culturelle 10 billion cell Cap RxNorm: 829121 1 Capsule(s) PO BID 0 08/12/2011 09/10/2011 Inactive Colcrys 0.6 mg Tab RxNorm: 345387 1 Tablet(s) PO BID 08/04/201111/30 Inactive allopurinol 100 mg Tab RxNorm: 846902 1 Tablet(s) PO BID 07/13/2011 0 08/03/2011 Inactive clotrimazole-betamethasone 1 %-0.05 % Topical Cream RxNorm: 939343 1 Application TOP BID 06/10/2011 06/23/2011 Inactive clotrimazole-betamethasone 1 %-0.05 % Topical Cream RxNorm: 473366 1 Application TOP BID 05/24/2011 06/06/2011 Inactive Colcrys 0.6 mg Tab RxNorm: 840653 1 Tablet(s) PO BID 05/24/201108/02 Inactive cefdinir 300 mg Cap RxNorm: 227334 1 Capsule(s) PO BID 04/15/2011 Inactive Daypro 600 mg Tab RxNorm: 376894 1 Tablet(s) PO BID 12/15/20102010 Inactive for pain Medrol (Nicholas) 4 mg Tabs in a Dose Pack RxNorm: 719851 Tablet(s) PO 0 12/09/2010 12/15/2010 Inactive as directed Colcrys 0.6 mg Tab RxNorm: 464824 1 Tablet(s) PO BID 12/06/201001/04 Inactive lisinopril-hydrochlorothiazide 20 mg-12.5 mg Tab RxNorm: 197 886 1 Tablet(s) PO QAM 12/02/2010 01/30/2011 Inactive ranitidine 150 mg tablet RxNorm: 6803855 1 Tablet(s) PO BID Pt will phone before filing this script. 04/14/2010 05/13/2010 Inactive allopurinol 100 mg Tab RxNorm: 949542 1 Tablet(s) PO BID 09/16/2009 0 11/14/2009 Inactive lisinopril-hydrochlorothiazide 20 mg-12.5 mg Tab RxNorm: 197 886 1 Tablet(s) PO QAM 06/23/2009 08/31/2009 Inactive ibuprofen 200 mg tablet RxNorm: 320262 4 Tablet(s) PO QAM No Start Da te Active Zithromax Z-Nicholas 250 mg Tab RxNorm: 764193 Tablet(s) PO as direc tenzin No Start Date 01/12/2011 Inactive Ultram Oral RxNorm: Oral No Start Date 01/01/2013 Inactive allopurinol 100 mg tablet RxNorm: 741680 1 Tablet(s) PO QD No Start Date 01/06/2015 Inactive pravastatin 40 mg tablet RxNorm: 957573 1 Tablet(s) PO QD No Start Date 01/07/2015 Inactive Naprosyn 500 mg tablet RxNorm: 381338 1 Tablet(s) PO BID No Start D ate 05/01/2013 Inactive azithromycin 250 mg tablet RxNorm: 738224 2 Tablet(s) P O QD take 2 tablets (500 mg) by oral route once daily for 1 day then 1 tablet (250 mg) by oral route once daily for 4 days No Start Date 01/12/2011 Inactive allopurinol 300 mg Tab RxNorm: 910320 1 Tablet(s) PO QD No Start Da te 01/01/2013 Inactive Colcrys 0.6 mg tablet RxNorm: 119075 1 Tablet(s) PO BID No Start Da te 05/01/2013 Inactive Medrol (Nicholas) 4 mg tablets in a dose pack RxNorm: 804320 Tablet(s) PO As Directed No Start Date 02/27/2017 Inactive hydrocodone 5 mg-acetaminophen 325 mg tablet RxNorm: 016756 1 Tablet(s) PO Q4H as needed for pain No Start Date 12/09/2013 Inactive ranitidine 150 mg Tab RxNorm: 7028582 1 Tablet(s) PO BID No Start D ate 04/13/2010 Inactive Allopurinol 100 mg Tab RxNorm: 492398 1 Tablet(s) PO BID No Start D ate 09/15/2009 Inactive coenzyme Q10 200 mg capsule RxNorm: 961539 1 Capsule(s) PO QD No St art Date 03/30/2015 Inactive Mobic 7.5 mg tablet RxNorm: 769652 1 Tablet(s) PO QD No Start Date Inactive Osteo Bi-Flex (5-Loxin) 1,500 mg-400 unit-100 mg tablet RxNo rm: 1 Tablet(s) PO BID No Start Date 03/30/2015 Inactive hydrocodone-acetaminophen 7.5 mg-325 mg Tab RxNorm: 350485 1-2 Tablet(s) PO Q4-6H No Start Date 08/03/2011 Inactive as needed for pa in Neurontin 300 mg capsule RxNorm: 699154 1 Capsule(s) PO QD No Start Date 12/09/2013 Inactive Medrol (Nicholas) 4 mg Tabs in a Dose Pack RxNorm: 828926 Tablet(s) PO N o Start Date 12/08/2010 Inactive as directed Vitamin D2 1,000 unit capsule RxNorm: 408325 1 Capsule(s) PO QD No Start Date 03/30/2015 Inactive Flexeril 10 mg Tab RxNorm: 251323 1 Tablet(s) PO TID No Start Date Inactive for spasm Medication Administered No Medication Administered data Immunizations No Immunization data Results Observation Observation Code Item Item Code Result Date S ervice Location C DIFF MOL [id number] C Diff Mol Int Negative 11/02/2018 Unk nown C Diff An [id number] C Diff Analyzer Indeterminate 9 Unknown GFR CALC 0458968 GFR Non Afr Amr >60 mL/min 11/01/2018 Un known GFR CALC 0269520 GFR Afr Amr >60 mL/min 11/01/[address] LDL 8157356 HDL CHOLESTEROL 46 mg/dL 11/01/[address] LDL 6221215 Cholesterol 198 mg/dL 11/01/[address] LDL 1340303 Triglyceride 104 mg/dL 11/01/[address] LDL 8224752 LDL Direct 158 mg/dL 11/01/[address] LDL 9205930 NON-HDL Chol 152 mg/dL 11/01/2018 Unkno wn THYROID STIMULATING HORMONE 19444 TSH 1.276 uIU/mL 11/01/2018 Unknown COMPREHENSIVE METABOLIC 86146 AST 22 U/L 2018 Unknown COMPREHENSIVE METABOLIC 60328 ALT 17 U/L 2018 Unknown COMPREHENSIVE METABOLIC 03013 BUN 16 mg/dL 2018 Unknown COMPREHENSIVE METABOLIC 02082 ALBUMIN 4.3 g/dL 2018 Unknown COMPREHENSIVE METABOLIC 67048 CHLORIDE 103 mmol/L 11/01 Unknown COMPREHENSIVE METABOLIC 90089 Bili Total 0.9 mg/dL 11/01 Unknown COMPREHENSIVE METABOLIC 10095 ALK PHOS 62 U/L 2018 Unknown COMPREHENSIVE METABOLIC 72128 SODIUM 138 mmol/L 11/01 Unknown COMPREHENSIVE METABOLIC 86750 CREATININE 0.87 mg/dL 10/09 Unknown COMPREHENSIVE METABOLIC 27930 CALCIUM 9.2 mg/dL 2018 Unknown COMPREHENSIVE METABOLIC 93507 POTASSIUM 4.1 mmol/L 11/01 Unknown COMPREHENSIVE METABOLIC 95283 Total Protein 7.2 g/dL Unknown COMPREHENSIVE METABOLIC 76701 Glucose 81 mg/dL 2018 Unknown COMPREHENSIVE METABOLIC 85642 Bicarbonate 18 mmol/L 10/09 Unknown COMPREHENSIVE METABOLIC 27351 AGAP 17 mmol/L 2018 Unknown COMPLETE BLOOD COUNT 9270404 WBC 8.8 10e9/L 11/02/19 19 Unknown COMPLETE BLOOD COUNT 4248179 RBC 4.54 10e12/L 2018 Unknown COMPLETE BLOOD COUNT 8325270 HEMOGLOBIN 14.4 g/dL 11/02/19 19 Unknown COMPLETE BLOOD COUNT 8421443 HEMATOCRIT 44.0 % 11/02/19 19 Unknown COMPLETE BLOOD COUNT 5345505 MCV 96.9 fL 9 Unknown COMPLETE BLOOD COUNT 5204064 MCH 31.7 pg 9 Unknown COMPLETE BLOOD COUNT 1649680 MCHC 32.7 g/dL 9 Unknown COMPLETE BLOOD COUNT 3100897 PLATELET COUNT 239 10e9/L Unknown COMPLETE BLOOD COUNT 3526759 Mean Plt Volume 10.5 fL Unknown COMPLETE BLOOD COUNT 8138918 NRBC Absolute 0.00 10e9/L Unknown COMPLETE BLOOD COUNT 8019976 Neut Auto 65.2 % 9 Unknown COMPLETE BLOOD COUNT 6589288 NRBC/100 WBC 0.0 2018 Unknown COMPLETE BLOOD COUNT 3756169 Lymph Auto 23.1 % 11/02/19 19 Unknown COMPLETE BLOOD COUNT 4770467 Towns Auto 9.5 % 9 Unknown COMPLETE BLOOD COUNT 3274720 RDW 12.2 % 9 Unknown COMPLETE BLOOD COUNT 0681384 Eos Auto 1.7 % 9 Unknown COMPLETE BLOOD COUNT 5896348 Baso Auto 0.3 % 9 Unknown COMPLETE BLOOD COUNT 6919015 Neutrophil Abs 5.73 10e9/L Unknown COMPLETE BLOOD COUNT 5040055 Imm Gran Auto 0.2 % 11/01 Unknown COMPLETE BLOOD COUNT 0345570 Lymphocyte Abs 2.03 10e9/L Unknown COMPLETE BLOOD COUNT [id number] Monocyte Abs 0.84 10e9/L 10/09 Unknown COMPLETE BLOOD COUNT 8360992 Eosinophil Abs 0.15 10e9/L Unknown COMPLETE BLOOD COUNT 7791289 RDW-SD 43.4 fL 9 Unknown COMPLETE BLOOD COUNT [id number] Basophil Abs 0.03 10e9/L 10/09 Unknown COMPLETE BLOOD COUNT [id number] Imm Gran Abs 0.02 10e9/L 10/09 Unknown COMPREHENSIVE METABOLIC 59043 AST 17 U/L 2016 Unknown COMPREHENSIVE METABOLIC 40107 ALT 16 U/L 2016 Unknown COMPREHENSIVE METABOLIC 50601 BUN 15 mg/dL 2016 Unknown COMPREHENSIVE METABOLIC 43364 ALBUMIN 4.4 g/dL 2016 Unknown COMPREHENSIVE METABOLIC 56035 CHLORIDE 104 mmol/L 03/29 Unknown COMPREHENSIVE METABOLIC 87271 Bili Total 0.5 mg/dL 03/29 Unknown COMPREHENSIVE METABOLIC 21539 ALK PHOS 56 U/L 2016 Unknown COMPREHENSIVE METABOLIC 70575 SODIUM 139 mmol/L 03/29 Unknown COMPREHENSIVE METABOLIC 45141 CREATININE 0.88 mg/dL 03/11 Unknown COMPREHENSIVE METABOLIC 70244 CALCIUM 9.8 mg/dL 2016 Unknown COMPREHENSIVE METABOLIC 36443 POTASSIUM 4.2 mmol/L 03/29 Unknown COMPREHENSIVE METABOLIC 47706 Total Protein 6.8 g/dL Unknown COMPREHENSIVE METABOLIC 69219 Glucose 100 mg/dL 2016 Unknown COMPREHENSIVE METABOLIC 07910 Bicarbonate 30 mmol/L 03/11 Unknown COMPREHENSIVE METABOLIC 87119 AGAP 5 mmol/L 2016 Unknown THYROID STIMULATING HORMONE 21108 TSH 1.077 uIU/mL 03/29/2017 Unknown URIC ACID 11397 URIC ACID 5.2 mg/dL 03/29/2017 Unknown FREE T4 00381 T4 Free 1.04 ng/dL 03/29/2017 Unknown ERYTHROCYTE SEDIMENTATION RATE 92454 Sed Rate 21 mm/hr 03/29/2017 Unknown COMPLETE BLOOD COUNT 6460972 WBC 5.9 10e9/L 03/29/20 17 Unknown COMPLETE BLOOD COUNT 6133401 RBC 4.52 10e12/L 2016 Unknown COMPLETE BLOOD COUNT 6789703 HEMOGLOBIN 14.6 g/dL 03/29/20 17 Unknown COMPLETE BLOOD COUNT 9288031 HEMATOCRIT 44.7 % 03/29/20 17 Unknown COMPLETE BLOOD COUNT 3896530 MCV 98.9 fL 7 Unknown COMPLETE BLOOD COUNT 9611490 MCH 32.3 pg 7 Unknown COMPLETE BLOOD COUNT 6491267 MCHC 32.7 g/dL 7 Unknown COMPLETE BLOOD COUNT 3045097 PLATELET COUNT 262 10e9/L Unknown COMPLETE BLOOD COUNT 9483694 Mean Plt Volume 10.1 fL Unknown COMPLETE BLOOD COUNT 0999533 Neut Auto 44.2 % 7 Unknown COMPLETE BLOOD COUNT 2187033 Lymph Auto 41.5 % 03/29/20 17 Unknown COMPLETE BLOOD COUNT 5594733 Towns Auto 11.2 % 7 Unknown COMPLETE BLOOD COUNT 8818242 RDW 12.3 % 7 Unknown COMPLETE BLOOD COUNT 5592584 Eos Auto 2.6 % 7 Unknown COMPLETE BLOOD COUNT 1007570 Baso Auto 0.5 % 7 Unknown COMPLETE BLOOD COUNT 7326459 Neutrophil Abs 2.61 10e9/L Unknown COMPLETE BLOOD COUNT 2597318 Lymphocyte Abs 2.45 10e9/L Unknown COMPLETE BLOOD COUNT [id number] Monocyte Abs 0.66 10e9/L 03/11 Unknown COMPLETE BLOOD COUNT 9301663 Eosinophil Abs 0.15 10e9/L Unknown COMPLETE BLOOD COUNT 2280956 RDW-SD 43.7 fL 7 Unknown COMPLETE BLOOD COUNT 3415605 Basophil Abs 0.03 10e9/L 03/11 Unknown LIPID GROUP 79581 Cholesterol 248 mg/dL 03/29/2017 Unkno wn LIPID GROUP 73692 Triglyceride 87 mg/dL 03/29/2017 Unkn own LIPID GROUP 13468 HDL CHOLESTEROL 49 mg/dL 03/29/2017 U nknown LIPID GROUP 89086 Chol/HDL Ratio 5.06 ratio 03/29/2017 U nknown LIPID GROUP 81157 NON-HDL Chol 199 mg/dL 03/29/2017 Unkn own LIPID GROUP 18271 LDL Cholesterol 182 mg/dL 03/29/2017 U nknown GFR CALC 4367917 GFR Non Afr Amr >60 mL/min 03/29/2017 Un known GFR CALC 0560086 GFR Afr Amr >60 mL/min 03/29/2017 Unknow n HIV AG/AB 8718765 HIV Ag/Ab Non-Reactive 03/15/2017 Unkno wn VIRAL HEPATITIS PROFILE #2 90191 Hep A IgM Non-Reactive 03/15/2017 Unknown VIRAL HEPATITIS PROFILE #2 47358 Hep B Core IgM Non-Reac tive 03/15/2017 Unknown VIRAL HEPATITIS PROFILE #2 87915 Hepatitis C Ab Non-Reac tive 03/15/2017 Unknown VIRAL HEPATITIS PROFILE #2 89158 Hep Bs Ag Non-Reactive 03/15/2017 Unknown COMPREHENSIVE METABOLIC 85994 AST 23 U/L 2014 Unknown COMPREHENSIVE METABOLIC 25376 ALT 21 IU/L 2014 Unknown COMPREHENSIVE METABOLIC 61532 BUN 13 MG/DL 2014 Unknown COMPREHENSIVE METABOLIC 98968 ALBUMIN 4.3 GM/DL 2014 Unknown COMPREHENSIVE METABOLIC 40956 CHLORIDE 105 MMOL/L 01/07 Unknown COMPREHENSIVE METABOLIC 46997 BILI TOT 0.7 MG/DL 2014 Unknown COMPREHENSIVE METABOLIC 64231 ALK PHOS 51 U/L 2014 Unknown COMPREHENSIVE METABOLIC 24308 SODIUM 139 MMOL/L 01/07 Unknown COMPREHENSIVE METABOLIC 97215 CREATININE 0.85 MG/DL 12/11 Unknown COMPREHENSIVE METABOLIC 52818 CALCIUM 9.5 MG/DL 2014 Unknown COMPREHENSIVE METABOLIC 87092 POTASSIUM 4.4 MMOL/L 01/07 Unknown COMPREHENSIVE METABOLIC 19042 PROT TOT 6.7 GM/DL 2014 Unknown COMPREHENSIVE METABOLIC 46988 Glucose 100 MG/DL 2014 Unknown COMPREHENSIVE METABOLIC 79018 BICARB 27 MMOL/L 2014 Unknown COMPREHENSIVE METABOLIC 89761 ANION GAP 7 MEQ/L 2014 Unknown THYROID STIMULATING HORMONE 25913 TSH 0.900 uIU/ML 01/07/2015 Unknown COMPLETE BLOOD COUNT 7382161 WBC 4.9 10e9/L 01/08/20 15 Unknown COMPLETE BLOOD COUNT 0921680 RBC 4.71 10e12/L 2014 Unknown COMPLETE BLOOD COUNT 0316914 HGB 15.3 g/dL 5 Unknown COMPLETE BLOOD COUNT 6650224 HCT DET 46.1 % 5 Unknown COMPLETE BLOOD COUNT 5615277 MCV 97.9 fL 5 Unknown COMPLETE BLOOD COUNT 5492956 MCH 32.5 pg 5 Unknown COMPLETE BLOOD COUNT 4029712 MCHC 33.2 g/dL 5 Unknown COMPLETE BLOOD COUNT 1994365 PLT 227 10e9/L 01/08/20 15 Unknown COMPLETE BLOOD COUNT 1478897 MPV 10.9 fL 5 Unknown COMPLETE BLOOD COUNT 7105261 VERONIQUE % 53.0 % 5 Unknown COMPLETE BLOOD COUNT 3134832 LY % 35.8 % 5 Unknown COMPLETE BLOOD COUNT 5011194 MON % 8.6 % 5 Unknown COMPLETE BLOOD COUNT 9442429 EOS % 2.2 % 5 Unknown COMPLETE BLOOD COUNT 6663104 BASO % 0.4 % 5 Unknown COMPLETE BLOOD COUNT 6078941 RDW 12.9 % 5 Unknown COMPLETE BLOOD COUNT 7632436 ABS VERONIQUE 2.60 10e9/L 015 Unknown COMPLETE BLOOD COUNT 3977889 ABS LYMPH 1.75 10e9/L 015 Unknown COMPLETE BLOOD COUNT 4824426 ABS MONO 0.42 10e9/L 015 Unknown COMPLETE BLOOD COUNT 7188003 ABS EOS 0.11 10e9/L 015 Unknown COMPLETE BLOOD COUNT 8368886 ABS BASO 0.02 10e9/L 015 Unknown COMPLETE BLOOD COUNT 3270106 RDW-SD 45.7 fL 5 Unknown URIC ACID 94507 URIC ACID 6.7 MG/DL 01/07/2015 Unknown LIPID GROUP 41206 HDL TEST 52 MG/DL 01/07/2015 Unknown LIPID GROUP 14770 TRIG 158 MG/DL 01/07/2015 Unknown LIPID GROUP 95566 TEST LDL 157 MG/DL 01/07/2015 Unknown LIPID GROUP 15581 CHOL 241 MG/DL 01/07/2015 Unknown LIPID GROUP 19116 RCHOL/HDL 4.63 RATIO 01/07/2015 Unknow n LIPID GROUP 84523 NON-HDL CH 189 MG/DL 01/07/2015 Unknow n GFR CALC 7754691 GFR AA >60 ML/MIN 01/07/2015 Unknown GFR CALC 2308842 GFR NON-AA >60 ML/MIN 01/07/2015 Unknown PSA EQUIMOLAR JONATAN 24336 PSA EQ 2.18 NG/ML 5 Unknown FREE T4 44182 FREE T4 1.04 NG/DL 01/07/2015 Unknown GFR CALC 9977508 GFR AA >60 ML/MIN 12/11/2013 Unknown GFR CALC 3652874 GFR NON-AA >60 ML/MIN 12/11/2013 Unknown LIPID GROUP 35096 HDL TEST 54 MG/DL 12/11/2013 Unknown LIPID GROUP 14119 TRIG 81 MG/DL 12/11/2013 Unknown LIPID GROUP 43342 TEST LDL 185 MG/DL 12/11/2013 Unknown LIPID GROUP 79352 CHOL 255 MG/DL 12/11/2013 Unknown LIPID GROUP 22370 RCHOL/HDL 4.72 RATIO 12/11/2013 Unknow n LIPID GROUP 49107 NON-HDL CH 201 MG/DL 12/11/2013 Unknow n URIC ACID 18013 URIC ACID 7.1 MG/DL 12/11/2013 Unknown PSA EQUIMOLAR JONATAN 96563 PSA EQ 3.80 NG/ML 4 Unknown COMPLETE BLOOD COUNT 7593507 WBC 5.9 10e9/L 12/12/19 14 Unknown COMPLETE BLOOD COUNT 0427587 RBC 4.40 10e12/L 2013 Unknown COMPLETE BLOOD COUNT 1504574 HGB 14.5 g/dL 4 Unknown COMPLETE BLOOD COUNT 0196748 HCT DET 43.6 % 4 Unknown COMPLETE BLOOD COUNT 2190986 MCV 99.1 fL 4 Unknown COMPLETE BLOOD COUNT 7405278 MCH 33.0 pg 4 Unknown COMPLETE BLOOD COUNT 7520484 MCHC 33.3 g/dL 4 Unknown COMPLETE BLOOD COUNT 2922359 PLT 289 10e9/L 12/12/19 14 Unknown COMPLETE BLOOD COUNT 9867794 MPV 10.2 fL 4 Unknown COMPLETE BLOOD COUNT 6233377 VERONIQUE % 47.9 % 4 Unknown COMPLETE BLOOD COUNT 9154658 LY % 40.6 % 4 Unknown COMPLETE BLOOD COUNT 0333466 MON % 8.8 % 4 Unknown COMPLETE BLOOD COUNT 5844663 EOS % 2.2 % 4 Unknown COMPLETE BLOOD COUNT 4227400 BASO % 0.5 % 4 Unknown COMPLETE BLOOD COUNT 5289261 RDW 12.9 % 4 Unknown COMPLETE BLOOD COUNT 4438274 ABS VERONIQUE 2.83 10e9/L 014 Unknown COMPLETE BLOOD COUNT 5484063 ABS LYMPH 2.40 10e9/L 014 Unknown COMPLETE BLOOD COUNT 3492047 ABS MONO 0.52 10e9/L 014 Unknown COMPLETE BLOOD COUNT 0414174 ABS EOS 0.13 10e9/L 014 Unknown COMPLETE BLOOD COUNT 2124643 ABS BASO 0.03 10e9/L 014 Unknown COMPLETE BLOOD COUNT 5686672 RDW-SD 45.7 fL 4 Unknown THYROID STIMULATING HORMONE 00995 TSH 1.013 uIU/ML 12/11/2013 Unknown COMPREHENSIVE METABOLIC 85193 AST 20 U/L 2013 Unknown COMPREHENSIVE METABOLIC 99758 ALT 16 IU/L 2013 Unknown COMPREHENSIVE METABOLIC 08644 BUN 17 MG/DL 2013 Unknown COMPREHENSIVE METABOLIC 36777 ALBUMIN 4.6 GM/DL 2013 Unknown COMPREHENSIVE METABOLIC 74702 CHLORIDE 107 MMOL/L 12/11 Unknown COMPREHENSIVE METABOLIC 10670 BILI TOT 0.7 MG/DL 2013 Unknown COMPREHENSIVE METABOLIC 83506 ALK PHOS 53 U/L 2013 Unknown COMPREHENSIVE METABOLIC 39341 SODIUM 140 MMOL/L 12/11 Unknown COMPREHENSIVE METABOLIC 71961 CREATININE 0.84 MG/DL 06/2013 Unknown COMPREHENSIVE METABOLIC 75249 CALCIUM 9.7 MG/DL 2013 Unknown COMPREHENSIVE METABOLIC 04505 POTASSIUM 4.6 MMOL/L 12/11 Unknown COMPREHENSIVE METABOLIC 09624 PROT TOT 6.9 GM/DL 2013 Unknown COMPREHENSIVE METABOLIC 91990 Glucose 97 MG/DL 2013 Unknown COMPREHENSIVE METABOLIC 42001 BICARB 25 MMOL/L 2013 Unknown COMPREHENSIVE METABOLIC 03704 ANION GAP 8 MEQ/L 2013 Unknown FREE T4 81649 FREE T4 1.11 NG/DL 12/11/2013 Unknown ASSAY OF CREATININE 58455 CREATININE 0.98 MG/DL 09/15/19 12 Unknown URIC ACID 40462 URIC ACID 4.9 MG/DL 09/15/2011 Unknown GFR CALC 9432568 GFR AA >60 ML/MIN 09/15/2011 Unknown GFR CALC 3933914 GFR NON-AA >60 ML/MIN 09/15/2011 Unknown THYROID STIMULATING HORMONE 06144 TSH 1.687 uIU/ML 08/01/2011 Unknown FREE T4 14753 FREE T4 0.96 NG/DL 08/01/2011 Unknown SJOGRENS 9370383 SJOGRN A <20 EU/ML 08/01/2011 Unknown SJOGRENS 5072057 SJOGRN B <20 EU/ML 08/01/2011 Unknown SJOGRENS 5972734 NONHIS INT SEE BELO 08/01/2011 Unknown THYRO PERX 1080514 THYRO PERX 175.34 UNITS 07/30/2011 Unkn own DNA AB 5197225 DNA AB 32 IU/ML 07/29/2011 Unknown TITER WENDI 7036718 TITR WENDI 1:160 07/29/2011 Unknown TITER WENDI 8199243 PATTERN NUCLEOLR 07/29/2011 Unknown ANTINUCLEAR ANTIBODY SCREEN 73489 WENDI SCR POSITIVE Unknown COMPREHENSIVE METABOLIC 79900 AST 23 U/L 2011 Unknown COMPREHENSIVE METABOLIC 37904 ALT 26 IU/L 2011 Unknown COMPREHENSIVE METABOLIC 55249 BUN 18 MG/DL 2011 Unknown COMPREHENSIVE METABOLIC 97529 ALBUMIN 4.6 GM/DL 2011 Unknown COMPREHENSIVE METABOLIC 14861 CHLORIDE 105 MMOL/L 07/27 Unknown COMPREHENSIVE METABOLIC 42525 BILI TOT 0.5 MG/DL 2011 Unknown COMPREHENSIVE METABOLIC 92320 ALK PHOS 63 U/L 2011 Unknown COMPREHENSIVE METABOLIC 98941 SODIUM 138 MMOL/L 07/27 Unknown COMPREHENSIVE METABOLIC 53194 CREATININE 0.92 MG/DL 07/09 Unknown COMPREHENSIVE METABOLIC 80443 CALCIUM 9.4 MG/DL 2011 Unknown COMPREHENSIVE METABOLIC 00342 POTASSIUM 3.9 MMOL/L 07/27 Unknown COMPREHENSIVE METABOLIC 50522 PROT TOT 6.7 GM/DL 2011 Unknown COMPREHENSIVE METABOLIC 09105 Glucose 101 MG/DL 2011 Unknown COMPREHENSIVE METABOLIC 98423 BICARB 24 MMOL/L 2011 Unknown COMPREHENSIVE METABOLIC 17085 ANION GAP 9 MEQ/L 2011 Unknown GFR CALC 5755755 GFR AA >60 ML/MIN 07/28/2011 Unknown GFR CALC 0417800 GFR NON-AA >60 ML/MIN 07/28/2011 Unknown ERYTHROCYTE SEDIMENTATION RATE 24910 ESR 2 MM/HR 07/28/2011 Unknown URIC ACID 54862 URIC ACID 5.8 MG/DL 07/28/2011 Unknown C-REACTIVE PROTEIN (CRP) QUANT 44235 CRP 0.2 MG/DL 07/28/2011 Unknown TITER WENDI [id number] TITR WENDI 1:160 05/26/2011 Unknown TITER WENDI [id number] PATTERN NUCLEOLR 05/26/2011 Unknown RA FACTOR 77541 RA FACTOR <20.0 IU/ML 05/26/2011 Unknown ANTINUCLEAR ANTIBODY SCREEN 26946 WENDI SCR POSITIVE Unknown URIC ACID 01681 URIC ACID 8.7 MG/DL 05/25/2011 Unknown PSA EQUIMOLAR JONATAN 59075 PSA EQ 2.79 NG/ML 2 Unknown LIPID GROUP 11283 HDL TEST 47 MG/DL 05/25/2011 Unknown LIPID GROUP 61857 TRIG 198 MG/DL 05/25/2011 Unknown LIPID GROUP 80626 TEST LDL 180 MG/DL 05/25/2011 Unknown LIPID GROUP 14563 CHOL 267 MG/DL 05/25/2011 Unknown LIPID GROUP 90257 RCHOL/HDL 5.68 RATIO 05/25/2011 Unknow n COMPREHENSIVE METABOLIC 19970 AST 21 U/L 2011 Unknown COMPREHENSIVE METABOLIC 79764 ALT 21 IU/L 2011 Unknown COMPREHENSIVE METABOLIC 47942 BUN 16 MG/DL 2011 Unknown COMPREHENSIVE METABOLIC 42961 ALBUMIN 4.4 GM/DL 2011 Unknown COMPREHENSIVE METABOLIC 19071 CHLORIDE 105 MMOL/L 05/25 Unknown COMPREHENSIVE METABOLIC 74896 BILI TOT 0.7 MG/DL 2011 Unknown COMPREHENSIVE METABOLIC 99797 ALK PHOS 60 U/L 2011 Unknown COMPREHENSIVE METABOLIC 11255 SODIUM 139 MMOL/L 05/25 Unknown COMPREHENSIVE METABOLIC 09142 CREATININE 0.92 MG/DL 05/11 Unknown COMPREHENSIVE METABOLIC 90713 CALCIUM 9.4 MG/DL 2011 Unknown COMPREHENSIVE METABOLIC 74297 POTASSIUM 4.1 MMOL/L 05/25 Unknown COMPREHENSIVE METABOLIC 04196 PROT TOT 7.0 GM/DL 2011 Unknown COMPREHENSIVE METABOLIC 47474 Glucose 108 MG/DL 2011 Unknown COMPREHENSIVE METABOLIC 49082 BICARB 25 MMOL/L 2011 Unknown COMPREHENSIVE METABOLIC 75024 ANION GAP 9 MEQ/L 2011 Unknown GFR CALC [id number] GFR AA >60 ML/MIN 05/25/2011 Unknown GFR CALC [id number] GFR NON-AA >60 ML/MIN 05/25/2011 Unknown COMPLETE BLOOD COUNT 68061 WBC 5.6 10e9/L 05/25/19 12 Unknown COMPLETE BLOOD COUNT 28101 RBC 5.01 10e12/L 2011 Unknown COMPLETE BLOOD COUNT 58932 HGB 15.8 g/dL 2 Unknown COMPLETE BLOOD COUNT 32294 HCT DET 46.1 % 2 Unknown COMPLETE BLOOD COUNT 17134 MCV 92.0 fL 2 Unknown COMPLETE BLOOD COUNT 18603 MCH 31.5 pg 2 Unknown COMPLETE BLOOD COUNT 94386 MCHC 34.3 g/dL 2 Unknown COMPLETE BLOOD COUNT 56576 PLT 246 10e9/L 05/25/19 12 Unknown COMPLETE BLOOD COUNT 50765 MPV 10.3 fL 2 Unknown COMPLETE BLOOD COUNT 72744 VERONIQUE % 47.1 % 2 Unknown COMPLETE BLOOD COUNT 73829 LY % 41.0 % 2 Unknown COMPLETE BLOOD COUNT 35836 MON % 8.9 % 2 Unknown COMPLETE BLOOD COUNT 58227 EOS % 2.5 % 2 Unknown COMPLETE BLOOD COUNT 14684 BASO % 0.5 % 2 Unknown COMPLETE BLOOD COUNT 78453 RDW 12.7 % 2 Unknown COMPLETE BLOOD COUNT 07242 ABS VERONIQUE 2.64 10e9/L 012 Unknown COMPLETE BLOOD COUNT 43245 ABS LYMPH 2.30 10e9/L 012 Unknown COMPLETE BLOOD COUNT 93636 ABS MONO 0.50 10e9/L 012 Unknown COMPLETE BLOOD COUNT 14642 ABS EOS 0.14 10e9/L 012 Unknown COMPLETE BLOOD COUNT 90657 ABS BASO 0.03 10e9/L 012 Unknown COMPLETE BLOOD COUNT 01934 RDW-SD 41.3 fL 2 Unknown COMPREHENSIVE METABOLIC 58599 AST 18 U/L 2010 Unknown COMPREHENSIVE METABOLIC 72108 ALT 14 IU/L 2010 Unknown COMPREHENSIVE METABOLIC 38088 BUN 12 MG/DL 2010 Unknown COMPREHENSIVE METABOLIC 73036 ALBUMIN 4.6 GM/DL 2010 Unknown COMPREHENSIVE METABOLIC 23560 CHLORIDE 102 MMOL/L 02/01 Unknown COMPREHENSIVE METABOLIC 73515 BILI TOT 0.6 MG/DL 2010 Unknown COMPREHENSIVE METABOLIC 15872 ALK PHOS 66 U/L 2010 Unknown COMPREHENSIVE METABOLIC 36982 SODIUM 139 MMOL/L 02/01 Unknown COMPREHENSIVE METABOLIC 57582 CREATININE 0.92 MG/DL 01/09 Unknown COMPREHENSIVE METABOLIC 24151 CALCIUM 9.8 MG/DL 2010 Unknown COMPREHENSIVE METABOLIC 06320 POTASSIUM 4.1 MMOL/L 02/01 Unknown COMPREHENSIVE METABOLIC 36541 PROT TOT 7.0 GM/DL 2010 Unknown COMPREHENSIVE METABOLIC 24092 Glucose 101 MG/DL 2010 Unknown COMPREHENSIVE METABOLIC 71199 BICARB 25 MMOL/L 2010 Unknown COMPREHENSIVE METABOLIC 92558 ANION GAP 12 MEQ/L 2010 Unknown GFR CALC [id number] GFR AA >60 ML/MIN 02/01/2011 Unknown GFR CALC [id number] GFR NON-AA >60 ML/MIN 02/01/2011 Unknown LIPID GROUP 77391 HDL TEST 44 MG/DL 02/01/2011 Unknown LIPID GROUP 84463 TRIG 157 MG/DL 02/01/2011 Unknown LIPID GROUP 14004 TEST LDL 193 MG/DL 02/01/2011 Unknown LIPID GROUP 09218 CHOL 268 MG/DL 02/01/2011 Unknown LIPID GROUP 78852 RCHOL/HDL 6.09 RATIO 02/01/2011 Unknow n FREE T4 89245 FREE T4 1.04 NG/DL 02/01/2011 Unknown COMPLETE BLOOD COUNT 51873 WBC 6.4 10e9/L 02/02/20 11 Unknown COMPLETE BLOOD COUNT 29987 RBC 4.56 10e12/L 2010 Unknown COMPLETE BLOOD COUNT 52563 HGB 14.4 g/dL 1 Unknown COMPLETE BLOOD COUNT 60407 HCT DET 43.0 % 1 Unknown COMPLETE BLOOD COUNT 95173 MCV 94.3 fL 1 Unknown COMPLETE BLOOD COUNT 47402 MCH 31.6 pg 1 Unknown COMPLETE BLOOD COUNT 53691 MCHC 33.5 g/dL 1 Unknown COMPLETE BLOOD COUNT 95755 PLT 300 10e9/L 02/02/20 11 Unknown COMPLETE BLOOD COUNT 89788 MPV 9.9 fL 1 Unknown COMPLETE BLOOD COUNT 76000 VREONIQUE % 38.5 % 1 Unknown COMPLETE BLOOD COUNT 11624 LY % 49.1 % 1 Unknown COMPLETE BLOOD COUNT 76766 MON % 10.1 % 1 Unknown COMPLETE BLOOD COUNT 30767 EOS % 1.7 % 1 Unknown COMPLETE BLOOD COUNT 07366 BASO % 0.6 % 1 Unknown COMPLETE BLOOD COUNT 05072 RDW 15.1 % 1 Unknown COMPLETE BLOOD COUNT 57599 ABS VERONIQUE 2.46 10e9/L 011 Unknown COMPLETE BLOOD COUNT 56364 ABS LYMPH 3.14 10e9/L 011 Unknown COMPLETE BLOOD COUNT 52508 ABS MONO 0.65 10e9/L 011 Unknown COMPLETE BLOOD COUNT 55380 ABS EOS 0.11 10e9/L 011 Unknown COMPLETE BLOOD COUNT 82315 ABS BASO 0.04 10e9/L 011 Unknown COMPLETE BLOOD COUNT 75643 RDW-SD 50.6 fL 1 Unknown THYROID STIMULATING HORMONE 82062 TSH 1.128 uIU/ML 02/01/2011 Unknown PSA EQUIMOLAR JONATAN 19669 PSA EQ 3.83 NG/ML 1 Unknown VCA AB G/M [id number] EBV G VCA 3.34 12/03/2010 Unknown VCA AB G/M 6454113 EBV M VCA 0.12 12/03/2010 Unknown EB GARY AG [id number] EB GARY AG 0.47 12/03/2010 Unknown EB NUCL AB [id number] EB NUCL AB 3.72 12/03/2010 Unknown COMPLETE BLOOD COUNT 80159 WBC 8.0 10e9/L 12/03/19 11 Unknown COMPLETE BLOOD COUNT 89783 RBC 4.93 10e12/L 2010 Unknown COMPLETE BLOOD COUNT 00629 HGB 15.7 g/dL 1 Unknown COMPLETE BLOOD COUNT 94905 HCT DET 45.4 % 1 Unknown COMPLETE BLOOD COUNT 80914 MCV 92.1 fL 1 Unknown COMPLETE BLOOD COUNT 07712 MCH 31.8 pg 1 Unknown COMPLETE BLOOD COUNT 72555 MCHC 34.6 g/dL 1 Unknown COMPLETE BLOOD COUNT 84775 PLT 248 10e9/L 12/03/19 11 Unknown COMPLETE BLOOD COUNT 55433 MPV 10.4 fL 1 Unknown COMPLETE BLOOD COUNT 58801 VERONIQUE % 74.0 % 1 Unknown COMPLETE BLOOD COUNT 92292 LY % 19.6 % 1 Unknown COMPLETE BLOOD COUNT 91245 MON % 5.2 % 1 Unknown COMPLETE BLOOD COUNT 64637 EOS % 1.1 % 1 Unknown COMPLETE BLOOD COUNT 33251 BASO % 0.1 % 1 Unknown COMPLETE BLOOD COUNT 09541 RDW 12.5 % 1 Unknown COMPLETE BLOOD COUNT 79261 ABS VERONIQUE 5.92 10e9/L 011 Unknown COMPLETE BLOOD COUNT 96371 ABS LYMPH 1.57 10e9/L 011 Unknown COMPLETE BLOOD COUNT 58020 ABS MONO 0.42 10e9/L 011 Unknown COMPLETE BLOOD COUNT 73398 ABS EOS 0.09 10e9/L 011 Unknown COMPLETE BLOOD COUNT 36701 ABS BASO 0.01 10e9/L 011 Unknown COMPLETE BLOOD COUNT 06001 RDW-SD 41.1 fL 1 Unknown URIC ACID 56924 URIC ACID 9.3 MG/DL 12/02/2010 Unknown Procedures Procedure Codes Date DEXAMETHASONE SODIUM PHOS CPT-4: J1100 05/31/2019 THER/PROPH/DIAG INJ SC/IM CPT-4: 71373 05/31/2019 THER/PROPH/DIAG INJ SC/IM CPT-4: 31664 05/17/2019 TRIAMCINOLONE ACET INJ NOS CPT-4: J3301 05/17/2019 DRAINAGE OF SKIN ABSCESS CPT-4: 91994 01/23/2019 AEROBIC WOUND CULTURE & STN CPT-4: 77131 01/23/2019 ROUTINE VENIPUNCTURE CPT-4: 32263 03/29/2017 ASSAY THYROID STIM HORMONE CPT-4: 79585 03/29/2017 ASSAY OF FREE THYROXINE CPT-4: 65737 03/29/2017 COMPREHEN METABOLIC PANEL CPT-4: 75206 03/29/2017 COMPLETE CBC W/AUTO DIFF WBC CPT-4: 32359 03/29/2017 LIPID PANEL CPT-4: 06243 03/29/2017 ASSAY OF BLOOD/URIC ACID CPT-4: 04621 03/29/2017 RBC SED RATE AUTOMATED CPT-4: 29404 03/29/2017 ROUTINE VENIPUNCTURE CPT-4: 36421 03/15/2017 ACUTE HEPATITIS PANEL CPT-4: 58508 03/15/2017 HIV-1/HIV-2 1 RESULT ANTBDY CPT-4: 50467 03/15/2017 EXC TR-EXT B9+SHASHA 0.5 CM< CPT-4: 53633 03/15/2017 EXC TR-EXT B9+SHASHA 1.1-2 CM CPT-4: 26080 03/15/2017 URINALYSIS NONAUTO W/O SCOPE CPT-4: 69122 01/07/2015 URINE CULTURE/ COLONY COUNT CPT-4: 27581 01/07/2015 ROUTINE VENIPUNCTURE CPT-4: 29686 01/07/2015 ASSAY OF FREE THYROXINE CPT-4: 01748 01/07/2015 ASSAY THYROID STIM HORMONE CPT-4: 02653 01/07/2015 COMPREHEN METABOLIC PANEL CPT-4: 41104 01/07/2015 COMPLETE CBC W/AUTO DIFF WBC CPT-4: 82776 01/07/2015 LIPID PANEL CPT-4: 40435 01/07/2015 ASSAY OF PSA TOTAL CPT-4: 39752 01/07/2015 ASSAY OF BLOOD/URIC ACID CPT-4: 21661 01/07/2015 ROUTINE VENIPUNCTURE CPT-4: 45275 12/11/2013 ASSAY OF FREE THYROXINE CPT-4: 04083 12/11/2013 ASSAY THYROID STIM HORMONE CPT-4: 35801 12/11/2013 COMPREHEN METABOLIC PANEL CPT-4: 21222 12/11/2013 COMPLETE CBC W/AUTO DIFF WBC CPT-4: 32958 12/11/2013 LIPID PANEL CPT-4: 60082 12/11/2013 ASSAY OF BLOOD/URIC ACID CPT-4: 62673 12/11/2013 ASSAY OF PSA TOTAL CPT-4: 70258 12/11/2013 URINE CULTURE/ COLONY COUNT CPT-4: 84425 01/02/2013 AEROBIC WOUND CULTURE & STN CPT-4: 28634 10/10/2011 DRAINAGE OF SKIN ABSCESS CPT-4: 11511 10/10/2011 ASSAY OF CREATININE CPT-4: 91375 09/15/2011 ASSAY OF BLOOD/URIC ACID CPT-4: 40036 09/15/2011 ROUTINE VENIPUNCTURE CPT-4: 22054 07/28/2011 ANTINUCLEAR ANTIBODIES CPT-4: 69652 07/28/2011 RBC SED RATE AUTOMATED CPT-4: 68362 07/28/2011 ASSAY OF BLOOD/URIC ACID CPT-4: 25735 07/28/2011 COMPREHEN METABOLIC PANEL CPT-4: 41314 07/28/2011 C-REACTIVE PROTEIN CPT-4: 85328 07/28/2011 THYRO PERX CPT-4: 2064807 07/28/2011 DNA AB CPT-4: 7677066 07/28/2011 SJOGRENS CPT-4: 8682798 07/28/2011 ASSAY OF FREE THYROXINE CPT-4: 39408 07/28/2011 ASSAY THYROID STIM HORMONE CPT-4: 04716 07/28/2011 ROUTINE VENIPUNCTURE CPT-4: 36068 05/25/2011 COMPREHEN METABOLIC PANEL CPT-4: 55325 05/25/2011 COMPLETE CBC W/AUTO DIFF WBC CPT-4: 48102 05/25/2011 ANTINUCLEAR ANTIBODIES CPT-4: 22988 05/25/2011 RHEUMATOID FACTOR QUANT CPT-4: 47436 05/25/2011 ASSAY OF PSA TOTAL CPT-4: 29760 05/25/2011 ASSAY OF BLOOD/URIC ACID CPT-4: 48672 05/25/2011 LIPID PANEL CPT-4: 02987 05/25/2011 ROUTINE VENIPUNCTURE CPT-4: 76259 02/01/2011 ASSAY OF FREE THYROXINE CPT-4: 73351 02/01/2011 ASSAY THYROID STIM HORMONE CPT-4: 08467 02/01/2011 COMPREHEN METABOLIC PANEL CPT-4: 68350 02/01/2011 COMPLETE CBC W/AUTO DIFF WBC CPT-4: 10186 02/01/2011 LIPID PANEL CPT-4: 54255 02/01/2011 ASSAY OF PSA TOTAL CPT-4: 88965 02/01/2011 ROUTINE VENIPUNCTURE CPT-4: 13973 12/02/2010 ASSAY OF BLOOD/URIC ACID CPT-4: 94509 12/02/2010 EB VIRUS VCA G/M + EBNA + EA CPT-4: 34986|38603 x 2|97086 COMPLETE CBC W/AUTO DIFF WBC CPT-4: 81581 12/02/2010 COMPREHEN METABOLIC PANEL CPT-4: 11258 09/14/2009 ASSAY OF BLOOD/URIC ACID CPT-4: 05718 09/14/2009 ROUTINE VENIPUNCTURE CPT-4: 87467 09/14/2009 URINALYSIS NONAUTO W/O SCOPE CPT-4: 95867 09/01/2009 Vital Signs Date Vital 05/31/2019 Blood [...] 1: 118/64 Code: 8480-6 BMI: 29.7 Code: 95208-5 Heart Rate 1: 100 bpm Height: 5'6" Respiratory Rate: 22 bpm SpO2: 95% Tempera ture: 36.7 (C) / 98.0 (F) Weight: 187 lbs 02/27/2017 Blood Pressure 1: 132/76 Code: 8480-6 BMI: 30.8 Code: 14713-0 Heart Rate 1: 96 bpm Height: 5'6" Respiratory Rate: 22 bpm SpO2: 98% Tempera ture: 36.6 (C) / 97.8 (F) Weight: 194 lbs 03/31/2015 Blood Pressure 1: 128/90 Code: 8480-6 Heart Rate 1: 88 bpm Respiratory Rate: 20 bpm Temperature: 36.9 (C) / 98.4 (F) Weight: 192 lbs 01/07/2015 Blood Pressure 1: 132/80 Code: 8480-6 BMI: 30.2 Code: 65335-8 Heart Rate 1: 78 bpm Height: 5'6" Respiratory Rate: 22 bpm Temperature: 36 .7 (C) / 98.1 (F) Weight: 190 lbs 04/15/2014 Blood Pressure 1: 136/88 Code: 8480-6 BMI: 31.0 Code: 35309-3 Heart Rate 1: 84 bpm Height: 5'6" Respiratory Rate: 20 bpm Temperature: 36 .1 (C) / 97.0 (F) Weight: 192 lbs 12/10/2013 Blood Pressure 1: 142/90 Code: 8480-6 BMI: 29.1 Code: 68931-7 Heart Rate 1: 72 bpm Height: 5'7" Respiratory Rate: 20 bpm Temperature: 36 .6 (C) / 97.8 (F) Weight: 186 lbs 05/02/2013 Blood Pressure 1: 146/96 Code: 8480-6 BMI: 30.5 Code: 60323-4 Heart Rate 1: 88 bpm Height: 5'7" Respiratory Rate: 20 bpm Temperature: 37 .0 (C) / 98.6 (F) Weight: 195 lbs 01/02/2013 Blood Pressure 1: 132/84 Code: 8480-6 BMI: 30.2 Code: 95852-2 Heart Rate 1: 80 bpm Height: 5'7" Respiratory Rate: 20 bpm Temperature: 36 .9 (C) / 98.4 (F) Weight: 193 lbs 10/10/2011 Blood Pressure 1: 122/68 Code: 8480-6 BMI: 35.7 Code: 69624-1 Heart Rate 1: 84 bpm Height: 5'2" Temperature: 36.9 (C) / 98.5 (F) Weight: 195 lbs 08/12/2011 Blood Pressure 1: 110/80 Code: 8480-6 BMI: 36.9 Code: 76287-4 Heart Rate 1: 80 bpm Height: 5'2" Temperature: 36.4 (C) / 97.6 (F) Weight: 202 lbs 08/04/2011 Blood Pressure 1: 126/80 Code: 8480-6 BMI: 37.9 Code: 30101-1 Heart Rate 1: 76 bpm Height: 5'2" Respiratory Rate: 20 bpm Temperature: 37 .0 (C) / 98.6 (F) Weight: 207 lbs 05/24/2011 Blood Pressure 1: 122/82 Code: 8480-6 BMI: 37.7 Code: 76904-6 Heart Rate 1: 68 bpm Height: 5'2" Temperature: 36.7 (C) / 98.1 (F) Weight: 206 lbs 04/15/2011 Blood Pressure 1: 128/82 Code: 8480-6 BMI: 37.1 Code: 73200-9 Heart Rate 1: 68 bpm Height: 5'2" [...] 1: 106/62 Code: 8480-6 BMI: 36.8 Code: 25724-5 Heart Rate 1: 90 bpm Height: 5'2" SpO2: 94% Temperature: 36.4 (C) / 97.6 (F) Weight: 201 lbs 12/02/2010 Blood Pressure 1: 142/90 Code: 8480-6 BMI: 36.8 Code: 78715-1 Heart Rate 1: 96 bpm Height: 5'2" [...] success Encounters Encounter Performer Location Codes Date ([id number]) OFFICE/OUTPATIENT VISIT EST Diagnosis: Acute contact dermatitis[ICD10: L25.9] Azragamal BYRNE DO [facility] CPT-4: 74533 05/31/2019 ([id number]) OFFICE/OUTPATIENT VISIT EST Diagnosis: Acute contact dermatitis[ICD10: L25.9] Diagnosis: Acute sinusitis[ICD10: J01.90] [facility] 51412 05/17/2019 ([id number]) OFFICE/OUTPATIENT VISIT EST Diagnosis: Acute gastritis without bleeding[ICD10: K29.00] Diagnosis: Essential (primary) hypertension[ICD10: I10] Diagnosis: Hyperlipidemia, unspecified[ICD10: E78.5] Azra BYRNE [facility] CPT-4: 12149 10/31/2018 ([id number]) OFFICE/OUTPATIENT VISIT EST Diagnosis: Acute gastritis without bleeding[ICD10: K29.00] Azra BYRNE [facility] CPT-4: 29186 01/18/2018 ([id number]) OFFICE/OUTPATIENT VISIT EST Diagnosis: Hyperlipidemia, unspecified[ICD10: E78.5] Diagnosis: Essential (primary) hypertension[ICD10: I10] Diagnosis: Weakness[ICD10: R53.1] Diagnosis: Sebaceous cyst[ICD10: L72.3] Diagnosis: Idiopathic gout, unspecified site[ICD10: M10.00] [facility] 21235 03/29/2017 OFFICE/OUTPATIENT VISIT EST Diagnosis: Pain in right knee[ICD10: M25.561] [facility] 44479 03/13/2017 OFFICE/OUTPATIENT VISIT EST Diagnosis: Pain in right leg[ICD10: M79.604] Diagnosis: Sebaceous cyst[ICD10: L72.3] Azra BYRNE [facility] CPT-4: 82206 02/27/2017 OFFICE/OUTPATIENT VISIT EST Diagnosis: Local infection of the skin and subcutaneous tissue, unspecified[ICD10: L08.9] Diagnosis: Essential (primary) hypertension[ICD10: I10] Diagnosis: Hyperlipidemia, unspecified[ICD10: E78.5] Dagmar Ahmadi SYLVIE COBB [employer] [facility] CPT-4: 92488 03/31/2015 ([id number]) PREV VISIT EST AGE 40-64 Diagnosis: History of chest pain[ICD9: V13.89] Diagnosis: Right flank pain[ICD9: 789.09] Diagnosis: ROUTINE MEDICAL EXAM[ICD9: V70.0] Diagnosis: HYPERTENSION[ICD9: 401.9] Diagnosis: HYPERLIPIDEMIA NEC/NOS[ICD9: 272.4] Diagnosis: Colon polyps[ICD9: 211.3] Diagnosis: HEMATURIA NOS[ICD9: 599.70] Dagmar ZhaoNoemi SYLVIE SammiFrancisco AGAPITO [employer] [facility] CPT-4: 50479 01/07/2015 OFFICE/OUTPATIENT VISIT EST Diagnosis: COUGH[ICD9: 786.2] Diagnosis: Rectal itching[ICD9: 698.0] Dagmar PavelNoemi SAINZ SammiFrancisco YVANSCARLETTDELMI [facility] CPT-4: 58600 04/15/2014 ([id number]) OFFICE/OUTPATIENT VISIT EST Diagnosis: ROUTINE MEDICAL EXAM[ICD9: V70.0] Diagnosis: GOUT[ICD9: 274.9] Diagnosis: HYPERLIPIDEMIA NEC/NOS[ICD9: 272.4] Diagnosis: HYPERTENSION[ICD9: 401.9] Sylvie Yvanjean claude SAINZ SammiFrancisco YVAN SILVERIO [facility] CPT-4: 13718 12/11/2013 ([id number]) OFFICE/OUTPATIENT VISIT EST Diagnosis: Shingles[ICD9: 053.9] Sylvie Yvanjean claude Phillips [facility]TTDELMI [facility] CPT-4: 33907 12/10/2013 ([id number]) OFFICE/OUTPATIENT VISIT EST Diagnosis: HYPERTENSION[ICD9: 401.9] Diagnosis: Colon polyps[ICD9: 211.3] Diagnosis: Stress reaction[ICD9: 308.9] Sylvie Yvanjean claude SAINZ SammiFrancisco [employer] [facility] CPT-4: 42579 05/02/2013 ([id number]) OFFICE/OUTPATIENT VISIT EST Diagnosis: URINARY TRACT INFECTION[ICD9: 599.0] [facility]: 29600 01/02/2013 OFFICE/OUTPATIENT VISIT EST Diagnosis: CELLULITIS OF TRUNK[ICD9: 682.2] Diagnosis: SPRAIN SHOULDER/ARM[ICD9: 840.9] Liza Phillips AGAPITO [facility] CPT-4: 29763 10/10/2011 ([id number]) OFFICE/OUTPATIENT VISIT EST Diagnosis: GOUT[ICD9: 274.9] Sylvie WILSONLINE SammiFrancisco [facility]AP[facility]O [facility] CPT-4: 35232 09/15/2011 OFFICE/OUTPATIENT VISIT EST Diagnosis: DIARRHEA[ICD9: 787.91] Sylvie Yvanscarlettdelmi WILSONSYLVIE SammiFrancisco YVANSCARLETTMarvin Cagle [facility] CPT-4: 98254 08/12/2011 ([id number]) OFFICE/OUTPATIENT VISIT EST Diagnosis: GOUT[ICD9: 274.9] Diagnosis: Positive WENDI (antinuclear antibody)[ICD9: 795.79] Sylvie WILSONLINE SammiFrancisco AGAPITO [facility] CPT-4: 81245 08/04/2011 OFFICE/OUTPATIENT VISIT EST Diagnosis: Rash[ICD9: 782.1] Diagnosis: Joint pain[ICD9: 719.40] Diagnosis: Hyperlipidemia[ICD9: 272.4] Sylvie WILSONCHIQUITA Kulkarni RENDER [facility] CPT-4: 59607 05/24/2011 OFFICE/OUTPATIENT VISIT EST Diagnosis: PHARYNGITIS, ACUTE[ICD9: 462] Diagnosis: COUGH[ICD9: 786.2] Diagnosis: SINUSITIS, ACUTE[ICD9: 461.9] Sylvie WILSONLINE SammiFrancisco AGAPITO [facility] CPT-4: 32866 04/15/2011 OFFICE/OUTPATIENT VISIT EST Diagnosis: Clavicle fracture[ICD9: 810.00] Sylvie Yvanscarlettdelmi WILSONSYLVIE SammiFrancisco YVANJEAN CLAUDE [facility] CPT-4: 13440 01/13/2011 OFFICE/OUTPATIENT VISIT EST Diagnosis: Clavicle pain[ICD9: 719.41] Sylvie WILSONCHIQUITA Kulkarni RENDER [facility] CPT-4: 19760 12/23/2010 OFFICE/OUTPATIENT VISIT EST Diagnosis: Arm pain[ICD9: 729.5] Diagnosis: SPASM OF MUSCLE[ICD9: 728.85] Diagnosis: Neck pain[ICD9: 723.1] Sylvie Yvanjean claude Phillips YVANMARLIN Cagle [facility] CPT-4: 69780 12/15/2010 OFFICE/OUTPATIENT VISIT EST Diagnosis: HYPERTENSION[ICD9: 401.9] Diagnosis: PHARYNGITIS, ACUTE[ICD9: 462] Diagnosis: MALAISE AND FATIGUE[ICD9: 780.79] Diagnosis: GOUT[ICD9: 274.9] Sylvie CHAHAL CPT-4: 76581 12/02/2010 ([id number]) OFFICE/OUTPATIENT VISIT, EST Sylvie CHAHAL CPT-4: 52687 04/19/2010 ([id number]) OFFICE/OUTPATIENT VISIT, EST Sylvie CHAHAL CPT-4: 18254 04/14/2010 ([id number]) OFFICE/OUTPATIENT VISIT, NHAN CHAHAL CPT-4: 66767 09/01/2009 Plan of Care Planned Activity Notes [...] ICD-9 : 692.9 ICD-10 : L25.9 05/31/2019 Patient Education: prednisone- [employer] Coupon [phone] https://www.Access Point/addwish/resources/getResource/61/esg698cg-[email or web address] Completed 05/31/2019 Visit Diagnosis Plan: Acute contact dermatitis Discuss ion: Kenalog 40mg IM now Cover with [employer] Call in 1week on how doing Medrol Dose Pack ICD-9 : 692.9 ICD-10 : L25.9 05/17/2019 Appointment: Sylvie Byrne WPtel: [phone] [facility] ACUTE ILLNESS 05/17/2019 Patient Education: Medrol (Nicholas)- [employer] Coupon [phone] https://www.Access Point/addwish/resources/getResource/61/66jhcn28-0206-7k39-2r Completed 05/17/2019 Visit Diagnosis Plan: Abscess of chest wall Discussion : patient has large amount of induration still noted despite recent drainage and antibiotics. dr. najera's office was called and they were able to see patient today. patient was sent over there for possible surgery. ICD-9 : 682.2 ICD-10 : L02.213 01/25/2019 Appointment: Azra Bradley [address] [place], [place] [address] FOLLOW UP 01/25/2019 Visit Diagnosis Plan: Abscess [...] ICD-10 : L02.213 01/23/2019 Appointment: Azra Bradley [address] [place], [place] [address] Patient called 01/21/19 to [facility] 01/23 appt OF FICE SURGERY 01/23/2019 Patient Education: clindamycin HCl- [employer] Coupon [id number] https://www.addwish.com/samplemd/resources/getResource/61/w051o032-z03u-7ffb-68 Completed 01/23/2019 Appointment: Azra Bradley [address] [place], [place] [id number] CANCELED 01/16/2019 Visit Diagnosis Plan: Acute gastritis [...] ICD-10 : E78.5 10/31/2018 Appointment: Azra Bradley [address] [place], [place] [address] ACUTE ILLNESS 10/31/2018 Patient Education: High Blood [...] : K29.00 01/18/2018 Appointment: Azra Bradley [address] [facility] ACUTE ILLNESS 01/18/2018 Patient Education: Patient Medication Summary Completed 01/18/2018 Appointment: Sylvie Byrne WPtel: [facility] LAB 03/29/2017 Patient Education: Patient Medication Summary [...] : L72.3 03/15/2017 Appointment: Azra Bradley [address] [facility] OFFICE SURGERY 03/15/2017 Patient Education: Patient Medication [...] : M25.561 03/13/2017 [facility] [facility] 03/13/2017 Patient Education: Patient Medication Summary Completed 03/13/2017 Care Plan: X-RAY EXAM OF KNEE 1 OR 2 [place] : 16484-4 Pending 03/13/2017 Visit Diagnosis Plan: Pain in [...] ICD-10 : L72.3 02/27/2017 Appointment: Azra Bradley [address] [place] [address] ACUTE ILLNESS 02/27/2017 Patient Education: Patient Medication Summary Completed 02/27/2017 Appointment: Katerina Sousa WPtel: [phone] [place] [address] ACUTE ILLNESS 08/21/2015 Visit Plan: Has been off of Pravastatin. Will resume Pravastitin 20mg. and re- check labs in 3 months, Resume Lisinopril and Allopurinol Warm moist compresses to left chest lesion Complete doxycycline Return check after antibiotics completed if no improvement in lesion to left chest will refer for removal of nodular skin lesion upper right back. 03/31/2015 Appointment: Dagmar Ahmadi WPtel: [address] [place], [place] [address] 03/30 Confirmed ~sl FOLLOW UP 03/31/2015 Patient Education: Patient Medication Summary Completed 03/31/2015 Visit Plan: CBC, CMP, TSH, Free T4, Lipi d Panel, Uric Acid, PSA, EKG Urine culture today Increase fluids to >120cc's daily. Notify if flank pain increases. Resume Lisinopril 20 mg PO daily Resume Allopurinol 100 mg Ciprofloxacin 500 mg PO bid Scheudule appt. for follow-up Colonscopy - [place] 01/07/2015 Appointment: Dagmar Ahmadi WPtel: [phone] [phone] 01/06 appointment confirmed cn Annual Well Visit 01/07/2015 Patient Education: Patient Medication Summary Completed 01/07/2015 Patient Education: [facility] - [employer] - Lisinopril - 18-64 - Dynamic Portal ID Completed 01/07/2015 Appointment: Sylvie Byrne WPtel: [address] [place] [address] ACUTE ILLNESS 08/26/2014 Appointment: Dagmar Ahmadi WPtel: [address] [place] [address] ACUTE ILLNESS 04/15/2014 Patient Education: Patient Medication Summary Completed 04/15/2014 Appointment: Sylvie Byrne WPtel: [address] [place] [address] US LAB 12/11/2013 Patient Education: Patient Medication Summary Completed 12/11/2013 Visit Plan: Check CBC, CMP, TSH, Free T4 , Lipids, uric acid, PSA--pt will return in AM for fasting lab Finish acyclovir Discussed Zostavax down road 12/10/2013 Appointment: Sylvie Byrne WPtel: [address] [place] [address] 12/06 left message FOLLOW UP 12/10/2013 Patient Education: Patient Medication Summary Completed 12/10/2013 Visit Plan: Lisinopril 20mg daily Stress Reducers and trial of fluoxetine 10mg q am Proceed with colonoscopy Check fasting lab 05/02/2013 Appointment: Sylvie Byrne WPtel: [address] [place] [address] ACUTE ILLNESS 05/02/2013 Patient Education: Patient Medication Summary Completed 05/02/2013 Appointment: Sylvie Byrne WPtel: [address] [place] [address] ACUTE ILLNESS 01/02/2013 Patient Education: Patient Medication Summary Completed 01/02/2013 Appointment: Liza Ragsdale WPtel: [address] [place] [address] ACUTE ILLNESS 10/10/2011 Patient Education: Patient Medication Summary Completed 10/10/2011 App[facility]ment[facility] [id number] [id number] [facility] 09/15/2011 Patient Education: Patient Medication [...] Will seek re-eval if symptoms worsen 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 08/12/2011 Appointment: Liza Ragsdale WPtel: [address] [place] [address] ACUTE ILLNESS 08/12/2011 Patient Education: Patient Medication Summary Completed 08/12/2011 Visit Plan: Continue increased dose of a llopurinol and daily colcrys Recheck thyroid lab, uric acid and PSA in 3mos Will hold on NSAID at this time due to history of GERD 08/04/2011 Appointment: Sylvie Byrne WPtel: [address] [place], [place] [id number] FOLLOW UP 08/04/2011 Patient Education: Patient Medication Summary Completed 08/04/2011 Appointment: Sylvie Byrne WPtel: [address] [place], [place] [id number] US LAB 07/28/2011 Patient Education: Patient Medication Summary Completed 07/28/2011 Appointment: Sylvie Byrne WPtel: [address] [place], [place] [id number] US LAB 05/25/2011 Patient Education: Patient Medication [...] at night. 05/24/2011 Appointment: Liza Ragsdale WPtel: [address] [place] [address] ACUTE ILLNESS 05/24/2011 Patient Education: Patient Medication Summary Completed 05/24/2011 Visit Plan: codeine/guif cough syrup and cefdinir are phoned to [facility]. Discussed fluids and rest. Pt. will notify if symptoms persist or worsen. 04/15/2011 Appointment: Liza Ragsdale WPtel: [address] [place] [address] ACUTE ILLNESS 04/15/2011 Patient Education: Patient Medication Summary Completed 04/15/2011 Appointment: Sylvie Byrne WPtel: [address] [place] [address] LAB 02/01/2011 Patient Education: Patient Medication Summary Completed 02/01/2011 Visit Plan: Repeat clavicle x-ray in 6wk s Check bone density 01/13/2011 Appointment: Sylvie Byrne WPtel: [address] [place] [address] FOLLOW UP 01/13/2011 Patient Education: Patient Medication Summary Completed 01/13/2011 Visit Plan: Check right clavicle and alda ulder x-ray Continue Vimovo and flexeril 12/23/2010 Appointment: Sylvie Byrne WPtel: [address] [place] [address] FOLLOW UP 12/23/2010 Patient Education: Patient Medication Summary Completed 12/23/2010 Appointment: Sylvie Byrne WPtel: [address] [place] [address] ER Follow UP 12/15/2010 Patient Education: Patient [...] BP check. 12/02/2010 Appointment: Liza Ragsdale WPtel: [address] [place], [place] [id number] ACUTE ILLNESS 12/02/2010 Patient Education: Patient Medication Summary Completed 12/02/2010 Care Plan: ASSAY OF BLOOD/URIC ACID Pendi ng 12/02/2010 Care Plan: VCA AB G/M Pending 2010 Care Plan: EB GARY AG Pending 2010 Care Plan: EB NUCL AB Pending 2010 Appointment: Sylvie Byrne WPtel: [address] [place] [address] US FOLLOW UP 11/18/2010 Visit Plan: benadryl 25 mg tab QHS. 12.5 mg tab every 8 hrs during the day. Pt. will notify if symptoms worsen. No facial edema present. 04/19/2010 Appointment: Liza Ragsdale WPtel: [address] [place] [address] FOLLOW UP 04/19/2010 Patient Education: Patient Medication [...] no improvement. 04/14/2010 Appointment: Liza Ragsdale WPtel: [address] [place], [place] [id number] ACUTE ILLNESS 04/14/2010 Patient Education: Patient Medication Summary Completed 04/14/2010 Appointment: Liza Ragsdale WPtel: [address] [place], [place] [phone] ACUTE ILLNESS 03/12/2010 [facility]ment[facility] [phone] [id number] [facility] 09/14/2009 Patient Education: Patient Medication Summary Completed 09/14/2009 App[facility]ment: [facility] [phone] [id number] [facility] 09/01/2009 Patient Education: Patient Medication [...] 100 mg Ciprofloxacin 500 mg PO bid [facility] appt. for follow-up Colonscopy - Candido . [...] seek re- eval if symptoms worsen 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 . Continue increased dose [...]
--- OUTSIDE RECORDS SUMMARY | 2019-10-17 10:35 | XMS REPORT | CCD ---
Author Author Renan Byrne D.O. Organization [facility] Address [address] [place] [address] Phone Care Team Providers Care Peer Financial Counselor Name Role Phone Sylvie Byrne D.O., PP Unavailable CCM Unavailable Summary Purpose Interface Exchange Insurance Providers Payer name Policy type / Coverage type Covered republican ID Effective Begin Date Effective End Date WPS MEDICARE PART B [place] Medicare Part B [id number] Unknown [facility] Medicare Part B [id number] Unknown Family History Family History data not found Social History Social History Element Codes Description Effective Dates Tobacco history SNOMED CT: 497954910 Nonsmoker 12/02/2010 Allergies, Adverse Reactions, Alerts Substance [...] Fill Instructions prednisone 20 mg tablet RxNorm: 768648 1 Tablet(s) Oral two latonia es a day 05/31/2019 06/05/2019 Active Elimite 5 % topical cream RxNorm: 334163 Application To pical QPM from head to toe 05/17/2019 07/16/2019 Active Medrol (Nicholas) 4 mg tablets in a dose pack RxNorm: 031554 6 Tablet(s) Oral QD --then as directed 05/17/2019 05/23/2019 Inactive Osteo Bi-Flex 250 mg-200 mg tablet RxNorm: 167755 2 Tablet(s) O ral QD 01/23/2019 No Stop Date Active clindamycin HCl 300 mg capsule RxNorm: 245420 2 Capsule (s) Oral three times a day 01/23/2019 01/30/2019 Inactive Flagyl 500 mg tablet RxNorm: 943206 1 Tablet(s) PO BID 10/31/2018 Inactive lisinopril 20 mg tablet RxNorm: 812404 1 Tablet(s) PO QD for bl ood pressure 09/13/2018 12/11/2018 Inactive allopurinol 100 mg tablet RxNorm: 345548 1 Tablet(s) PO QD 09/14/19 19 12/11/2018 Inactive Flagyl 500 mg tablet RxNorm: 234665 1 Tablet(s) PO BID 01/18/2018 Inactive Cipro 250 mg tablet RxNorm: 578917 1 Tablet(s) PO BID 01/18/201801/08 Inactive lisinopril 20 mg tablet RxNorm: 579601 1 Tablet(s) PO QD for bl ood pressure 11/06/2017 02/03/2018 Inactive allopurinol 100 mg tablet RxNorm: 655865 1 Tablet(s) PO QD 11/07/19 18 02/03/2018 Inactive allopurinol 100 mg tablet RxNorm: 671189 1 Tablet(s) PO QD 04/11/19 18 10/07/2017 Inactive lisinopril 20 mg tablet RxNorm: 171657 1 Tablet(s) PO QD for bl ood pressure 04/07/2017 11/05/2017 Inactive prednisone 20 mg tablet RxNorm: 887557 2 Tablet(s) PO QD 03/15/2017 1 05/18/2016 Inactive tramadol 50 mg tablet RxNorm: 941410 1-2 Tablet(s) PO TID as needed 03/13/2017 08/06/2017 Inactive Medrol (Nicholas) 4 mg tablets in a dose pack RxNorm: 533266 Tablet(s) PO As Directed 02/28/2017 08/01/2017 Inactive allopurinol 100 mg tablet RxNorm: 108829 1 Tablet(s) PO QD 04/11/19 17 04/11/2017 Inactive lisinopril 20 mg tablet RxNorm: 310118 1 Tablet(s) PO QD for bl ood pressure 04/11/2016 04/07/2017 Inactive pravastatin 20 mg tablet RxNorm: 274213 1 Tablet(s) PO QD 01/13/2016 02/26/2017 Inactive pravastatin 20 mg tablet RxNorm: 057715 TAKE 1 TABLET DAILY 016 01/13/2016 Inactive pravastatin 40 mg tablet RxNorm: 776363 1 Tablet(s) PO QD 03/31/2015 03/31/2015 Inactive pravastatin 20 mg tablet RxNorm: 446465 1 Tablet(s) PO QD 03/31/2015 06/28/2015 Inactive doxycycline hyclate 100 mg capsule RxNorm: 7347859 1 Capsule(s) PO BID 03/31/2015 04/09/2015 Inactive mupirocin 2 % topical ointment RxNorm: 010744 Apply TOP BID to affected lesions 03/31/2015 08/01/2017 Inactive pravastatin 40 mg tablet RxNorm: 679858 1 Tablet(s) PO QD 01/08/2015 03/30/2015 Inactive lisinopril 20 mg tablet RxNorm: 998222 1 Tablet(s) PO QD for bl ood pressure 01/07/2015 12/31/2015 Inactive allopurinol 100 mg tablet RxNorm: 032634 1 Tablet(s) PO QD 01/08/20 15 04/10/2016 Inactive ciprofloxacin 500 mg tablet RxNorm: 231493 1 Tablet(s) PO BID 01/0701/13/2015 Inactive doxycycline hyclate 100 mg capsule RxNorm: 7416934 1 Capsule(s) PO BID 04/15/2014 04/24/2014 Inactive fluoxetine 10 mg capsule RxNorm: 362868 1 Capsule(s) PO QAM 014 04/14/2014 Inactive lisinopril 20 mg tablet RxNorm: 423641 1 Tablet(s) PO QD for bl ood pressure 05/02/2013 04/26/2014 Inactive Cipro 500 mg tablet RxNorm: 260722 1 Tablet(s) PO BID 01/02/201312/10 Inactive Cipro 500 mg tablet RxNorm: 900684 1 Tablet(s) PO BID 01/02/20130 04/2012 Inactive doxycycline hyclate 100 mg Cap RxNorm: 425015 1 Capsule(s) PO BID 0 10/10/2011 10/19/2011 Inactive Culturelle 10 billion cell Cap RxNorm: 496845 1 Capsule(s) PO BID 0 08/12/2011 09/10/2011 Inactive Colcrys 0.6 mg Tab RxNorm: 484420 1 Tablet(s) PO BID 08/04/201111/30 Inactive allopurinol 100 mg Tab RxNorm: 413644 1 Tablet(s) PO BID 07/13/2011 0 08/03/2011 Inactive clotrimazole-betamethasone 1 %-0.05 % Topical Cream RxNorm: 404900 1 Application TOP BID 06/10/2011 06/23/2011 Inactive clotrimazole-betamethasone 1 %-0.05 % Topical Cream RxNorm: 792256 1 Application TOP BID 05/24/2011 06/06/2011 Inactive Colcrys 0.6 mg Tab RxNorm: 678215 1 Tablet(s) PO BID 05/24/201108/02 Inactive cefdinir 300 mg Cap RxNorm: 484060 1 Capsule(s) PO BID 04/15/2011 Inactive Daypro 600 mg Tab RxNorm: 257277 1 Tablet(s) PO BID 12/15/20102010 Inactive for pain Medrol (Nicholas) 4 mg Tabs in a Dose Pack RxNorm: 322107 Tablet(s) PO 0 12/09/2010 12/15/2010 Inactive as directed Colcrys 0.6 mg Tab RxNorm: 512335 1 Tablet(s) PO BID 12/06/201001/04 Inactive lisinopril-hydrochlorothiazide 20 mg-12.5 mg Tab RxNorm: 197 886 1 Tablet(s) PO QAM 12/02/2010 01/30/2011 Inactive ranitidine 150 mg tablet RxNorm: 4367923 1 Tablet(s) PO BID Pt will phone before filing this script. 04/14/2010 05/13/2010 Inactive allopurinol 100 mg Tab RxNorm: 771271 1 Tablet(s) PO BID 09/16/2009 0 11/14/2009 Inactive lisinopril-hydrochlorothiazide 20 mg-12.5 mg Tab RxNorm: 197 886 1 Tablet(s) PO QAM 06/23/2009 08/31/2009 Inactive ibuprofen 200 mg tablet RxNorm: 501610 4 Tablet(s) PO QAM No Start Da te Active Zithromax Z-Nicholas 250 mg Tab RxNorm: 302158 Tablet(s) PO as direc tenzin No Start Date 01/12/2011 Inactive Ultram Oral RxNorm: Oral No Start Date 01/01/2013 Inactive allopurinol 100 mg tablet RxNorm: 174062 1 Tablet(s) PO QD No Start Date 01/06/2015 Inactive pravastatin 40 mg tablet RxNorm: 823953 1 Tablet(s) PO QD No Start Date 01/07/2015 Inactive Naprosyn 500 mg tablet RxNorm: 038183 1 Tablet(s) PO BID No Start D ate 05/01/2013 Inactive azithromycin 250 mg tablet RxNorm: 323422 2 Tablet(s) P O QD take 2 tablets (500 mg) by oral route once daily for 1 day then 1 tablet (250 mg) by oral route once daily for 4 days No Start Date 01/12/2011 Inactive allopurinol 300 mg Tab RxNorm: 059392 1 Tablet(s) PO QD No Start Da te 01/01/2013 Inactive Colcrys 0.6 mg tablet RxNorm: 694778 1 Tablet(s) PO BID No Start Da te 05/01/2013 Inactive Medrol (Nicholas) 4 mg tablets in a dose pack RxNorm: 045296 Tablet(s) PO As Directed No Start Date 02/27/2017 Inactive hydrocodone 5 mg-acetaminophen 325 mg tablet RxNorm: 607182 1 Tablet(s) PO Q4H as needed for pain No Start Date 12/09/2013 Inactive ranitidine 150 mg Tab RxNorm: 1432428 1 Tablet(s) PO BID No Start D ate 04/13/2010 Inactive Allopurinol 100 mg Tab RxNorm: 636026 1 Tablet(s) PO BID No Start D ate 09/15/2009 Inactive coenzyme Q10 200 mg capsule RxNorm: 399076 1 Capsule(s) PO QD No St art Date 03/30/2015 Inactive Mobic 7.5 mg tablet RxNorm: 561609 1 Tablet(s) PO QD No Start Date Inactive Osteo Bi-Flex (5-Loxin) 1,500 mg-400 unit-100 mg tablet RxNo rm: 1 Tablet(s) PO BID No Start Date 03/30/2015 Inactive hydrocodone-acetaminophen 7.5 mg-325 mg Tab RxNorm: 002567 1-2 Tablet(s) PO Q4-6H No Start Date 08/03/2011 Inactive as needed for pa in Neurontin 300 mg capsule RxNorm: 599002 1 Capsule(s) PO QD No Start Date 12/09/2013 Inactive Medrol (Nicholas) 4 mg Tabs in a Dose Pack RxNorm: 921017 Tablet(s) PO N o Start Date 12/08/2010 Inactive as directed Vitamin D2 1,000 unit capsule RxNorm: 159247 1 Capsule(s) PO QD No Start Date 03/30/2015 Inactive Flexeril 10 mg Tab RxNorm: 731284 1 Tablet(s) PO TID No Start Date Inactive for spasm Medication Administered No Medication Administered data Immunizations No Immunization data Results Observation Observation Code Item Item Code Result Date S ervice Location C DIFF MOL 0637537 C Diff Mol Int Negative 11/02/2018 Unk nown C Diff An 33631954 C Diff Analyzer Indeterminate 9 Unknown GFR CALC 1905425 GFR Non Afr Amr >60 mL/min 11/01/2018 Un known GFR CALC 1298510 GFR Afr Amr >60 mL/min 11/01/[address] LDL 7424058 HDL CHOLESTEROL 46 mg/dL 11/01/[address] LDL 7555294 Cholesterol 198 mg/dL 11/01/[address] LDL 4626188 Triglyceride 104 mg/dL 11/01/[address] LDL 0481390 LDL Direct 158 mg/dL 11/01/[address] LDL 4733953 NON-HDL Chol 152 mg/dL 11/01/2018 Unkno wn THYROID STIMULATING HORMONE 81442 TSH 1.276 uIU/mL 11/01/2018 Unknown COMPREHENSIVE METABOLIC 60883 AST 22 U/L 2018 Unknown COMPREHENSIVE METABOLIC 84510 ALT 17 U/L 2018 Unknown COMPREHENSIVE METABOLIC 85431 BUN 16 mg/dL 2018 Unknown COMPREHENSIVE METABOLIC 56015 ALBUMIN 4.3 g/dL 2018 Unknown COMPREHENSIVE METABOLIC 10346 CHLORIDE 103 mmol/L 11/01 Unknown COMPREHENSIVE METABOLIC 32583 Bili Total 0.9 mg/dL 11/01 Unknown COMPREHENSIVE METABOLIC 70714 ALK PHOS 62 U/L 2018 Unknown COMPREHENSIVE METABOLIC 24012 SODIUM 138 mmol/L 11/01 Unknown COMPREHENSIVE METABOLIC 84923 CREATININE 0.87 mg/dL 10/09 Unknown COMPREHENSIVE METABOLIC 30873 CALCIUM 9.2 mg/dL 2018 Unknown COMPREHENSIVE METABOLIC 59982 POTASSIUM 4.1 mmol/L 11/01 Unknown COMPREHENSIVE METABOLIC 79992 Total Protein 7.2 g/dL Unknown COMPREHENSIVE METABOLIC 53001 Glucose 81 mg/dL 2018 Unknown COMPREHENSIVE METABOLIC 91812 Bicarbonate 18 mmol/L 10/09 Unknown COMPREHENSIVE METABOLIC 51840 AGAP 17 mmol/L 2018 Unknown COMPLETE BLOOD COUNT 5957214 WBC 8.8 10e9/L 11/02/19 19 Unknown COMPLETE BLOOD COUNT 0961231 RBC 4.54 10e12/L 2018 Unknown COMPLETE BLOOD COUNT 5487072 HEMOGLOBIN 14.4 g/dL 11/02/19 19 Unknown COMPLETE BLOOD COUNT 3208459 HEMATOCRIT 44.0 % 11/02/19 19 Unknown COMPLETE BLOOD COUNT 1375155 MCV 96.9 fL 9 Unknown COMPLETE BLOOD COUNT 8893465 MCH 31.7 pg 9 Unknown COMPLETE BLOOD COUNT 9184979 MCHC 32.7 g/dL 9 Unknown COMPLETE BLOOD COUNT 0289614 PLATELET COUNT 239 10e9/L Unknown COMPLETE BLOOD COUNT 8291768 Mean Plt Volume 10.5 fL Unknown COMPLETE BLOOD COUNT 1450722 NRBC Absolute 0.00 10e9/L Unknown COMPLETE BLOOD COUNT 7917385 Neut Auto 65.2 % 9 Unknown COMPLETE BLOOD COUNT 0436095 NRBC/100 WBC 0.0 2018 Unknown COMPLETE BLOOD COUNT 7210648 Lymph Auto 23.1 % 11/02/19 19 Unknown COMPLETE BLOOD COUNT 4372712 [place] Auto 9.5 % 9 Unknown COMPLETE BLOOD COUNT 0242150 RDW 12.2 % 9 Unknown COMPLETE BLOOD COUNT 1327508 Eos Auto 1.7 % 9 Unknown COMPLETE BLOOD COUNT 3509134 Baso Auto 0.3 % 9 Unknown COMPLETE BLOOD COUNT 1236923 Neutrophil Abs 5.73 10e9/L Unknown COMPLETE BLOOD COUNT 8350898 Imm Gran Auto 0.2 % 11/01 Unknown COMPLETE BLOOD COUNT 3324848 Lymphocyte Abs 2.03 10e9/L Unknown COMPLETE BLOOD COUNT [id number] Monocyte Abs 0.84 10e9/L 10/09 Unknown COMPLETE BLOOD COUNT 4253717 Eosinophil Abs 0.15 10e9/L Unknown COMPLETE BLOOD COUNT 2163851 RDW-SD 43.4 fL 9 Unknown COMPLETE BLOOD COUNT 0948455 Basophil Abs 0.03 10e9/L 10/09 Unknown COMPLETE BLOOD COUNT [id number] Imm Gran Abs 0.02 10e9/L 10/09 Unknown COMPREHENSIVE METABOLIC 04365 AST 17 U/L 2016 Unknown COMPREHENSIVE METABOLIC 17029 ALT 16 U/L 2016 Unknown COMPREHENSIVE METABOLIC 68636 BUN 15 mg/dL 2016 Unknown COMPREHENSIVE METABOLIC 31062 ALBUMIN 4.4 g/dL 2016 Unknown COMPREHENSIVE METABOLIC 45875 CHLORIDE 104 mmol/L 03/29 Unknown COMPREHENSIVE METABOLIC 77963 Bili Total 0.5 mg/dL 03/29 Unknown COMPREHENSIVE METABOLIC 94727 ALK PHOS 56 U/L 2016 Unknown COMPREHENSIVE METABOLIC 19489 SODIUM 139 mmol/L 03/29 Unknown COMPREHENSIVE METABOLIC 85260 CREATININE 0.88 mg/dL 03/11 Unknown COMPREHENSIVE METABOLIC 98224 CALCIUM 9.8 mg/dL 2016 Unknown COMPREHENSIVE METABOLIC 43480 POTASSIUM 4.2 mmol/L 03/29 Unknown COMPREHENSIVE METABOLIC 04584 Total Protein 6.8 g/dL Unknown COMPREHENSIVE METABOLIC 76271 Glucose 100 mg/dL 2016 Unknown COMPREHENSIVE METABOLIC 95193 Bicarbonate 30 mmol/L 03/11 Unknown COMPREHENSIVE METABOLIC 53107 AGAP 5 mmol/L 2016 Unknown THYROID STIMULATING HORMONE 00896 TSH 1.077 uIU/mL 03/29/2017 Unknown URIC ACID 01377 URIC ACID 5.2 mg/dL 03/29/2017 Unknown FREE T4 29179 T4 Free 1.04 ng/dL 03/29/2017 Unknown ERYTHROCYTE SEDIMENTATION RATE 61156 Sed Rate 21 mm/hr 03/29/2017 Unknown COMPLETE BLOOD COUNT 9194010 WBC 5.9 10e9/L 03/29/20 17 Unknown COMPLETE BLOOD COUNT 3083173 RBC 4.52 10e12/L 2016 Unknown COMPLETE BLOOD COUNT 2354361 HEMOGLOBIN 14.6 g/dL 03/29/20 17 Unknown COMPLETE BLOOD COUNT 5716323 HEMATOCRIT 44.7 % 03/29/20 17 Unknown COMPLETE BLOOD COUNT 1352318 MCV 98.9 fL 7 Unknown COMPLETE BLOOD COUNT 7171571 MCH 32.3 pg 7 Unknown COMPLETE BLOOD COUNT 4403776 MCHC 32.7 g/dL 7 Unknown COMPLETE BLOOD COUNT 3110736 PLATELET COUNT 262 10e9/L Unknown COMPLETE BLOOD COUNT 3912470 Mean Plt Volume 10.1 fL Unknown COMPLETE BLOOD COUNT 4236095 Neut Auto 44.2 % 7 Unknown COMPLETE BLOOD COUNT 9352746 Lymph Auto 41.5 % 03/29/20 17 Unknown COMPLETE BLOOD COUNT 3542604 [place] Auto 11.2 % 7 Unknown COMPLETE BLOOD COUNT 8644748 RDW 12.3 % 7 Unknown COMPLETE BLOOD COUNT 8979745 Eos Auto 2.6 % 7 Unknown COMPLETE BLOOD COUNT 0631702 Baso Auto 0.5 % 7 Unknown COMPLETE BLOOD COUNT 3692822 Neutrophil Abs 2.61 10e9/L Unknown COMPLETE BLOOD COUNT 8507471 Lymphocyte Abs 2.45 10e9/L Unknown COMPLETE BLOOD COUNT 6837037 Monocyte Abs 0.66 10e9/L 03/11 Unknown COMPLETE BLOOD COUNT 5365943 Eosinophil Abs 0.15 10e9/L Unknown COMPLETE BLOOD COUNT 4825009 RDW-SD 43.7 fL 7 Unknown COMPLETE BLOOD COUNT 6322287 Basophil Abs 0.03 10e9/L 03/11 Unknown LIPID GROUP 60337 Cholesterol 248 mg/dL 03/29/2017 Unkno wn LIPID GROUP 17515 Triglyceride 87 mg/dL 03/29/2017 Unkn own LIPID GROUP 04371 HDL CHOLESTEROL 49 mg/dL 03/29/2017 U nknown LIPID GROUP 72058 Chol/HDL Ratio 5.06 ratio 03/29/2017 U nknown LIPID GROUP 74618 NON-HDL Chol 199 mg/dL 03/29/2017 Unkn own LIPID GROUP 86273 LDL Cholesterol 182 mg/dL 03/29/2017 U nknown GFR CALC 0747320 GFR Non Afr Amr >60 mL/min 03/29/2017 Un known GFR CALC 1233109 GFR Afr Amr >60 mL/min 03/29/2017 Unknow n HIV AG/AB 8445563 HIV Ag/Ab Non-Reactive 03/15/2017 Unkno wn VIRAL HEPATITIS PROFILE #2 73487 Hep A IgM Non-Reactive 03/15/2017 Unknown VIRAL HEPATITIS PROFILE #2 86407 Hep B Core IgM Non-Reac tive 03/15/2017 Unknown VIRAL HEPATITIS PROFILE #2 23281 Hepatitis C Ab Non-Reac tive 03/15/2017 Unknown VIRAL HEPATITIS PROFILE #2 18531 Hep Bs Ag Non-Reactive 03/15/2017 Unknown COMPREHENSIVE METABOLIC 28807 AST 23 U/L 2014 Unknown COMPREHENSIVE METABOLIC 74527 ALT 21 IU/L 2014 Unknown COMPREHENSIVE METABOLIC 52622 BUN 13 MG/DL 2014 Unknown COMPREHENSIVE METABOLIC 01427 ALBUMIN 4.3 GM/DL 2014 Unknown COMPREHENSIVE METABOLIC 86017 CHLORIDE 105 MMOL/L 01/07 Unknown COMPREHENSIVE METABOLIC 16679 BILI TOT 0.7 MG/DL 2014 Unknown COMPREHENSIVE METABOLIC 44758 ALK PHOS 51 U/L 2014 Unknown COMPREHENSIVE METABOLIC 82076 SODIUM 139 MMOL/L 01/07 Unknown COMPREHENSIVE METABOLIC 87832 CREATININE 0.85 MG/DL 12/11 Unknown COMPREHENSIVE METABOLIC 94061 CALCIUM 9.5 MG/DL 2014 Unknown COMPREHENSIVE METABOLIC 30219 POTASSIUM 4.4 MMOL/L 01/07 Unknown COMPREHENSIVE METABOLIC 17693 PROT TOT 6.7 GM/DL 2014 Unknown COMPREHENSIVE METABOLIC 43067 Glucose 100 MG/DL 2014 Unknown COMPREHENSIVE METABOLIC 65397 BICARB 27 MMOL/L 2014 Unknown COMPREHENSIVE METABOLIC 62591 ANION GAP 7 MEQ/L 2014 Unknown THYROID STIMULATING HORMONE 85048 TSH 0.900 uIU/ML 01/07/2015 Unknown COMPLETE BLOOD COUNT 9990173 WBC 4.9 10e9/L 01/08/20 15 Unknown COMPLETE BLOOD COUNT 8329854 RBC 4.71 10e12/L 2014 Unknown COMPLETE BLOOD COUNT 8667572 HGB 15.3 g/dL 5 Unknown COMPLETE BLOOD COUNT 1940886 HCT DET 46.1 % 5 Unknown COMPLETE BLOOD COUNT 4031973 MCV 97.9 fL 5 Unknown COMPLETE BLOOD COUNT 5075672 MCH 32.5 pg 5 Unknown COMPLETE BLOOD COUNT 9755025 MCHC 33.2 g/dL 5 Unknown COMPLETE BLOOD COUNT 4865960 PLT 227 10e9/L 01/08/20 15 Unknown COMPLETE BLOOD COUNT 4042149 MPV 10.9 fL 5 Unknown COMPLETE BLOOD COUNT 9800143 VERONIQUE % 53.0 % 5 Unknown COMPLETE BLOOD COUNT 6126838 LY % 35.8 % 5 Unknown COMPLETE BLOOD COUNT 3560299 MON % 8.6 % 5 Unknown COMPLETE BLOOD COUNT 5269080 EOS % 2.2 % 5 Unknown COMPLETE BLOOD COUNT 8366322 BASO % 0.4 % 5 Unknown COMPLETE BLOOD COUNT 5166785 RDW 12.9 % 5 Unknown COMPLETE BLOOD COUNT 9525512 ABS VERONIQUE 2.60 10e9/L 015 Unknown COMPLETE BLOOD COUNT 0655596 ABS LYMPH 1.75 10e9/L 015 Unknown COMPLETE BLOOD COUNT 8738551 ABS MONO 0.42 10e9/L 015 Unknown COMPLETE BLOOD COUNT 3959453 ABS EOS 0.11 10e9/L 015 Unknown COMPLETE BLOOD COUNT 8393810 ABS BASO 0.02 10e9/L 015 Unknown COMPLETE BLOOD COUNT 7378232 RDW-SD 45.7 fL 5 Unknown URIC ACID 41652 URIC ACID 6.7 MG/DL 01/07/2015 Unknown LIPID GROUP 90027 HDL TEST 52 MG/DL 01/07/2015 Unknown LIPID GROUP 52445 TRIG 158 MG/DL 01/07/2015 Unknown LIPID GROUP 39362 TEST LDL 157 MG/DL 01/07/2015 Unknown LIPID GROUP 55937 CHOL 241 MG/DL 01/07/2015 Unknown LIPID GROUP 52658 RCHOL/HDL 4.63 RATIO 01/07/2015 Unknow n LIPID GROUP 06370 NON-HDL CH 189 MG/DL 01/07/2015 Unknow n GFR CALC 0194550 GFR AA >60 ML/MIN 01/07/2015 Unknown GFR CALC 7213924 GFR NON-AA >60 ML/MIN 01/07/2015 Unknown PSA EQUIMOLAR JONATAN 37668 PSA EQ 2.18 NG/ML 5 Unknown FREE T4 64829 FREE T4 1.04 NG/DL 01/07/2015 Unknown GFR CALC 7712014 GFR AA >60 ML/MIN 12/11/2013 Unknown GFR CALC 0247591 GFR NON-AA >60 ML/MIN 12/11/2013 Unknown LIPID GROUP 80255 HDL TEST 54 MG/DL 12/11/2013 Unknown LIPID GROUP 09267 TRIG 81 MG/DL 12/11/2013 Unknown LIPID GROUP 20920 TEST LDL 185 MG/DL 12/11/2013 Unknown LIPID GROUP 73034 CHOL 255 MG/DL 12/11/2013 Unknown LIPID GROUP 58733 RCHOL/HDL 4.72 RATIO 12/11/2013 Unknow n LIPID GROUP 03755 NON-HDL CH 201 MG/DL 12/11/2013 Unknow n URIC ACID 21523 URIC ACID 7.1 MG/DL 12/11/2013 Unknown PSA EQUIMOLAR JONATAN 79069 PSA EQ 3.80 NG/ML 4 Unknown COMPLETE BLOOD COUNT 6506902 WBC 5.9 10e9/L 12/12/19 14 Unknown COMPLETE BLOOD COUNT 3666302 RBC 4.40 10e12/L 2013 Unknown COMPLETE BLOOD COUNT 9869713 HGB 14.5 g/dL 4 Unknown COMPLETE BLOOD COUNT 1880205 HCT DET 43.6 % 4 Unknown COMPLETE BLOOD COUNT 2406314 MCV 99.1 fL 4 Unknown COMPLETE BLOOD COUNT 2101079 MCH 33.0 pg 4 Unknown COMPLETE BLOOD COUNT 4823152 MCHC 33.3 g/dL 4 Unknown COMPLETE BLOOD COUNT 9816938 PLT 289 10e9/L 12/12/19 14 Unknown COMPLETE BLOOD COUNT 8763970 MPV 10.2 fL 4 Unknown COMPLETE BLOOD COUNT 9374988 VERONIQUE % 47.9 % 4 Unknown COMPLETE BLOOD COUNT 9576387 LY % 40.6 % 4 Unknown COMPLETE BLOOD COUNT 2164514 MON % 8.8 % 4 Unknown COMPLETE BLOOD COUNT 6587411 EOS % 2.2 % 4 Unknown COMPLETE BLOOD COUNT 4978261 BASO % 0.5 % 4 Unknown COMPLETE BLOOD COUNT 4353328 RDW 12.9 % 4 Unknown COMPLETE BLOOD COUNT 7706971 ABS VERONIQUE 2.83 10e9/L 014 Unknown COMPLETE BLOOD COUNT 5114367 ABS LYMPH 2.40 10e9/L 014 Unknown COMPLETE BLOOD COUNT 1850193 ABS MONO 0.52 10e9/L 014 Unknown COMPLETE BLOOD COUNT 2230914 ABS EOS 0.13 10e9/L 014 Unknown COMPLETE BLOOD COUNT 0699539 ABS BASO 0.03 10e9/L 014 Unknown COMPLETE BLOOD COUNT 1876535 RDW-SD 45.7 fL 4 Unknown THYROID STIMULATING HORMONE 11461 TSH 1.013 uIU/ML 12/11/2013 Unknown COMPREHENSIVE METABOLIC 27733 AST 20 U/L 2013 Unknown COMPREHENSIVE METABOLIC 83577 ALT 16 IU/L 2013 Unknown COMPREHENSIVE METABOLIC 06887 BUN 17 MG/DL 2013 Unknown COMPREHENSIVE METABOLIC 95347 ALBUMIN 4.6 GM/DL 2013 Unknown COMPREHENSIVE METABOLIC 52306 CHLORIDE 107 MMOL/L 12/11 Unknown COMPREHENSIVE METABOLIC 28993 BILI TOT 0.7 MG/DL 2013 Unknown COMPREHENSIVE METABOLIC 92821 ALK PHOS 53 U/L 2013 Unknown COMPREHENSIVE METABOLIC 64339 SODIUM 140 MMOL/L 12/11 Unknown COMPREHENSIVE METABOLIC 62415 CREATININE 0.84 MG/DL 06/2013 Unknown COMPREHENSIVE METABOLIC 95403 CALCIUM 9.7 MG/DL 2013 Unknown COMPREHENSIVE METABOLIC 42968 POTASSIUM 4.6 MMOL/L 12/11 Unknown COMPREHENSIVE METABOLIC 07939 PROT TOT 6.9 GM/DL 2013 Unknown COMPREHENSIVE METABOLIC 71827 Glucose 97 MG/DL 2013 Unknown COMPREHENSIVE METABOLIC 15871 BICARB 25 MMOL/L 2013 Unknown COMPREHENSIVE METABOLIC 52152 ANION GAP 8 MEQ/L 2013 Unknown FREE T4 69102 FREE T4 1.11 NG/DL 12/11/2013 Unknown ASSAY OF CREATININE 11391 CREATININE 0.98 MG/DL 09/15/19 12 Unknown URIC ACID 26315 URIC ACID 4.9 MG/DL 09/15/2011 Unknown GFR CALC 9713076 GFR AA >60 ML/MIN 09/15/2011 Unknown GFR CALC 0977619 GFR NON-AA >60 ML/MIN 09/15/2011 Unknown THYROID STIMULATING HORMONE 04667 TSH 1.687 uIU/ML 08/01/2011 Unknown FREE T4 75041 FREE T4 0.96 NG/DL 08/01/2011 Unknown SJOGRENS 8317115 SJOGRN A <20 EU/ML 08/01/2011 Unknown SJOGRENS 1678951 SJOGRN B <20 EU/ML 08/01/2011 Unknown SJOGRENS 2797778 NONHIS INT SEE BELO 08/01/2011 Unknown THYRO PERX 1399741 THYRO PERX 175.34 UNITS 07/30/2011 Unkn own DNA AB 7606504 DNA AB 32 IU/ML 07/29/2011 Unknown TITER WENDI 3012807 TITR WENDI 1:160 07/29/2011 Unknown TITER WENDI 4358141 PATTERN NUCLEOLR 07/29/2011 Unknown ANTINUCLEAR ANTIBODY SCREEN 68625 WENDI SCR POSITIVE Unknown COMPREHENSIVE METABOLIC 84317 AST 23 U/L 2011 Unknown COMPREHENSIVE METABOLIC 78679 ALT 26 IU/L 2011 Unknown COMPREHENSIVE METABOLIC 47198 BUN 18 MG/DL 2011 Unknown COMPREHENSIVE METABOLIC 46825 ALBUMIN 4.6 GM/DL 2011 Unknown COMPREHENSIVE METABOLIC 44885 CHLORIDE 105 MMOL/L 07/27 Unknown COMPREHENSIVE METABOLIC 68360 BILI TOT 0.5 MG/DL 2011 Unknown COMPREHENSIVE METABOLIC 32190 ALK PHOS 63 U/L 2011 Unknown COMPREHENSIVE METABOLIC 95803 SODIUM 138 MMOL/L 07/27 Unknown COMPREHENSIVE METABOLIC 27788 CREATININE 0.92 MG/DL 07/09 Unknown COMPREHENSIVE METABOLIC 36599 CALCIUM 9.4 MG/DL 2011 Unknown COMPREHENSIVE METABOLIC 70251 POTASSIUM 3.9 MMOL/L 07/27 Unknown COMPREHENSIVE METABOLIC 53641 PROT TOT 6.7 GM/DL 2011 Unknown COMPREHENSIVE METABOLIC 58476 Glucose 101 MG/DL 2011 Unknown COMPREHENSIVE METABOLIC 12172 BICARB 24 MMOL/L 2011 Unknown COMPREHENSIVE METABOLIC 06739 ANION GAP 9 MEQ/L 2011 Unknown GFR CALC 7167056 GFR AA >60 ML/MIN 07/28/2011 Unknown GFR CALC 0660579 GFR NON-AA >60 ML/MIN 07/28/2011 Unknown ERYTHROCYTE SEDIMENTATION RATE 83481 ESR 2 MM/HR 07/28/2011 Unknown URIC ACID 76296 URIC ACID 5.8 MG/DL 07/28/2011 Unknown C-REACTIVE PROTEIN (CRP) QUANT 06038 CRP 0.2 MG/DL 07/28/2011 Unknown TITER WENDI 0151185 TITR WENDI 1:160 05/26/2011 Unknown TITER WENDI 1980726 PATTERN NUCLEOLR 05/26/2011 Unknown RA FACTOR 98379 RA FACTOR <20.0 IU/ML 05/26/2011 Unknown ANTINUCLEAR ANTIBODY SCREEN 05546 WENDI SCR POSITIVE Unknown URIC ACID 80480 URIC ACID 8.7 MG/DL 05/25/2011 Unknown PSA EQUIMOLAR JONATAN 60036 PSA EQ 2.79 NG/ML 2 Unknown LIPID GROUP 55113 HDL TEST 47 MG/DL 05/25/2011 Unknown LIPID GROUP 92546 TRIG 198 MG/DL 05/25/2011 Unknown LIPID GROUP 85394 TEST LDL 180 MG/DL 05/25/2011 Unknown LIPID GROUP 61303 CHOL 267 MG/DL 05/25/2011 Unknown LIPID GROUP 43823 RCHOL/HDL 5.68 RATIO 05/25/2011 Unknow n COMPREHENSIVE METABOLIC 37546 AST 21 U/L 2011 Unknown COMPREHENSIVE METABOLIC 92937 ALT 21 IU/L 2011 Unknown COMPREHENSIVE METABOLIC 28803 BUN 16 MG/DL 2011 Unknown COMPREHENSIVE METABOLIC 21706 ALBUMIN 4.4 GM/DL 2011 Unknown COMPREHENSIVE METABOLIC 93601 CHLORIDE 105 MMOL/L 05/25 Unknown COMPREHENSIVE METABOLIC 16826 BILI TOT 0.7 MG/DL 2011 Unknown COMPREHENSIVE METABOLIC 97071 ALK PHOS 60 U/L 2011 Unknown COMPREHENSIVE METABOLIC 75146 SODIUM 139 MMOL/L 05/25 Unknown COMPREHENSIVE METABOLIC 79681 CREATININE 0.92 MG/DL 05/11 Unknown COMPREHENSIVE METABOLIC 65998 CALCIUM 9.4 MG/DL 2011 Unknown COMPREHENSIVE METABOLIC 65281 POTASSIUM 4.1 MMOL/L 05/25 Unknown COMPREHENSIVE METABOLIC 54232 PROT TOT 7.0 GM/DL 2011 Unknown COMPREHENSIVE METABOLIC 17161 Glucose 108 MG/DL 2011 Unknown COMPREHENSIVE METABOLIC 66482 BICARB 25 MMOL/L 2011 Unknown COMPREHENSIVE METABOLIC 11173 ANION GAP 9 MEQ/L 2011 Unknown GFR CALC 2547502 GFR AA >60 ML/MIN 05/25/2011 Unknown GFR CALC [id number] GFR NON-AA >60 ML/MIN 05/25/2011 Unknown COMPLETE BLOOD COUNT 15049 WBC 5.6 10e9/L 05/25/19 12 Unknown COMPLETE BLOOD COUNT 97403 RBC 5.01 10e12/L 2011 Unknown COMPLETE BLOOD COUNT 17989 HGB 15.8 g/dL 2 Unknown COMPLETE BLOOD COUNT 51037 HCT DET 46.1 % 2 Unknown COMPLETE BLOOD COUNT 55762 MCV 92.0 fL 2 Unknown COMPLETE BLOOD COUNT 62399 MCH 31.5 pg 2 Unknown COMPLETE BLOOD COUNT 96546 MCHC 34.3 g/dL 2 Unknown COMPLETE BLOOD COUNT 59735 PLT 246 10e9/L 05/25/19 12 Unknown COMPLETE BLOOD COUNT 91570 MPV 10.3 fL 2 Unknown COMPLETE BLOOD COUNT 26999 VERONIQUE % 47.1 % 2 Unknown COMPLETE BLOOD COUNT 01410 LY % 41.0 % 2 Unknown COMPLETE BLOOD COUNT 75589 MON % 8.9 % 2 Unknown COMPLETE BLOOD COUNT 03501 EOS % 2.5 % 2 Unknown COMPLETE BLOOD COUNT 30531 BASO % 0.5 % 2 Unknown COMPLETE BLOOD COUNT 16202 RDW 12.7 % 2 Unknown COMPLETE BLOOD COUNT 05768 ABS VERONIQUE 2.64 10e9/L 012 Unknown COMPLETE BLOOD COUNT 80560 ABS LYMPH 2.30 10e9/L 012 Unknown COMPLETE BLOOD COUNT 88870 ABS MONO 0.50 10e9/L 012 Unknown COMPLETE BLOOD COUNT 03438 ABS EOS 0.14 10e9/L 012 Unknown COMPLETE BLOOD COUNT 81077 ABS BASO 0.03 10e9/L 012 Unknown COMPLETE BLOOD COUNT 63126 RDW-SD 41.3 fL 2 Unknown COMPREHENSIVE METABOLIC 62391 AST 18 U/L 2010 Unknown COMPREHENSIVE METABOLIC 58684 ALT 14 IU/L 2010 Unknown COMPREHENSIVE METABOLIC 90212 BUN 12 MG/DL 2010 Unknown COMPREHENSIVE METABOLIC 46419 ALBUMIN 4.6 GM/DL 2010 Unknown COMPREHENSIVE METABOLIC 41514 CHLORIDE 102 MMOL/L 02/01 Unknown COMPREHENSIVE METABOLIC 27464 BILI TOT 0.6 MG/DL 2010 Unknown COMPREHENSIVE METABOLIC 44691 ALK PHOS 66 U/L 2010 Unknown COMPREHENSIVE METABOLIC 66749 SODIUM 139 MMOL/L 02/01 Unknown COMPREHENSIVE METABOLIC 01764 CREATININE 0.92 MG/DL 01/09 Unknown COMPREHENSIVE METABOLIC 73853 CALCIUM 9.8 MG/DL 2010 Unknown COMPREHENSIVE METABOLIC 85889 POTASSIUM 4.1 MMOL/L 02/01 Unknown COMPREHENSIVE METABOLIC 46347 PROT TOT 7.0 GM/DL 2010 Unknown COMPREHENSIVE METABOLIC 85079 Glucose 101 MG/DL 2010 Unknown COMPREHENSIVE METABOLIC 60918 BICARB 25 MMOL/L 2010 Unknown COMPREHENSIVE METABOLIC 49819 ANION GAP 12 MEQ/L 2010 Unknown GFR CALC [id number] GFR AA >60 ML/MIN 02/01/2011 Unknown GFR CALC [id number] GFR NON-AA >60 ML/MIN 02/01/2011 Unknown LIPID GROUP 09386 HDL TEST 44 MG/DL 02/01/2011 Unknown LIPID GROUP 86749 TRIG 157 MG/DL 02/01/2011 Unknown LIPID GROUP 91051 TEST LDL 193 MG/DL 02/01/2011 Unknown LIPID GROUP 21722 CHOL 268 MG/DL 02/01/2011 Unknown LIPID GROUP 36978 RCHOL/HDL 6.09 RATIO 02/01/2011 Unknow n FREE T4 34704 FREE T4 1.04 NG/DL 02/01/2011 Unknown COMPLETE BLOOD COUNT 36456 WBC 6.4 10e9/L 02/02/20 11 Unknown COMPLETE BLOOD COUNT 13245 RBC 4.56 10e12/L 2010 Unknown COMPLETE BLOOD COUNT 74544 HGB 14.4 g/dL 1 Unknown COMPLETE BLOOD COUNT 31531 HCT DET 43.0 % 1 Unknown COMPLETE BLOOD COUNT 32666 MCV 94.3 fL 1 Unknown COMPLETE BLOOD COUNT 21053 MCH 31.6 pg 1 Unknown COMPLETE BLOOD COUNT 18736 MCHC 33.5 g/dL 1 Unknown COMPLETE BLOOD COUNT 48227 PLT 300 10e9/L 02/02/20 11 Unknown COMPLETE BLOOD COUNT 47305 MPV 9.9 fL 1 Unknown COMPLETE BLOOD COUNT 32707 VERONIQUE % 38.5 % 1 Unknown COMPLETE BLOOD COUNT 47087 LY % 49.1 % 1 Unknown COMPLETE BLOOD COUNT 85588 MON % 10.1 % 1 Unknown COMPLETE BLOOD COUNT 09338 EOS % 1.7 % 1 Unknown COMPLETE BLOOD COUNT 96187 BASO % 0.6 % 1 Unknown COMPLETE BLOOD COUNT 65915 RDW 15.1 % 1 Unknown COMPLETE BLOOD COUNT 42116 ABS VERONIQUE 2.46 10e9/L 011 Unknown COMPLETE BLOOD COUNT 07411 ABS LYMPH 3.14 10e9/L 011 Unknown COMPLETE BLOOD COUNT 25999 ABS MONO 0.65 10e9/L 011 Unknown COMPLETE BLOOD COUNT 02972 ABS EOS 0.11 10e9/L 011 Unknown COMPLETE BLOOD COUNT 71520 ABS BASO 0.04 10e9/L 011 Unknown COMPLETE BLOOD COUNT 59000 RDW-SD 50.6 fL 1 Unknown THYROID STIMULATING HORMONE 48027 TSH 1.128 uIU/ML 02/01/2011 Unknown PSA EQUIMOLAR JONATAN 05226 PSA EQ 3.83 NG/ML 1 Unknown VCA AB G/M [id number] EBV G VCA 3.34 12/03/2010 Unknown VCA AB G/M 9791945 EBV M VCA 0.12 12/03/2010 Unknown EB GARY AG [id number] EB GARY AG 0.47 12/03/2010 Unknown EB NUCL AB [id number] EB NUCL AB 3.72 12/03/2010 Unknown COMPLETE BLOOD COUNT 90795 WBC 8.0 10e9/L 12/03/19 11 Unknown COMPLETE BLOOD COUNT 12124 RBC 4.93 10e12/L 2010 Unknown COMPLETE BLOOD COUNT 16648 HGB 15.7 g/dL 1 Unknown COMPLETE BLOOD COUNT 26851 HCT DET 45.4 % 1 Unknown COMPLETE BLOOD COUNT 30700 MCV 92.1 fL 1 Unknown COMPLETE BLOOD COUNT 49968 MCH 31.8 pg 1 Unknown COMPLETE BLOOD COUNT 67603 MCHC 34.6 g/dL 1 Unknown COMPLETE BLOOD COUNT 38323 PLT 248 10e9/L 12/03/19 11 Unknown COMPLETE BLOOD COUNT 22936 MPV 10.4 fL 1 Unknown COMPLETE BLOOD COUNT 55988 VERONIQUE % 74.0 % 1 Unknown COMPLETE BLOOD COUNT 79873 LY % 19.6 % 1 Unknown COMPLETE BLOOD COUNT 70778 MON % 5.2 % 1 Unknown COMPLETE BLOOD COUNT 47275 EOS % 1.1 % 1 Unknown COMPLETE BLOOD COUNT 83370 BASO % 0.1 % 1 Unknown COMPLETE BLOOD COUNT 91699 RDW 12.5 % 1 Unknown COMPLETE BLOOD COUNT 94256 ABS VERONIQUE 5.92 10e9/L 011 Unknown COMPLETE BLOOD COUNT 00408 ABS LYMPH 1.57 10e9/L 011 Unknown COMPLETE BLOOD COUNT 90218 ABS MONO 0.42 10e9/L 011 Unknown COMPLETE BLOOD COUNT 92134 ABS EOS 0.09 10e9/L 011 Unknown COMPLETE BLOOD COUNT 60125 ABS BASO 0.01 10e9/L 011 Unknown COMPLETE BLOOD COUNT 14004 RDW-SD 41.1 fL 1 Unknown URIC ACID 26878 URIC ACID 9.3 MG/DL 12/02/2010 Unknown Procedures Procedure Codes Date DEXAMETHASONE SODIUM PHOS CPT-4: J1100 05/31/2019 THER/PROPH/DIAG INJ SC/IM CPT-4: 18121 05/31/2019 THER/PROPH/DIAG INJ SC/IM CPT-4: 26614 05/17/2019 TRIAMCINOLONE ACET INJ NOS CPT-4: J3301 05/17/2019 DRAINAGE OF SKIN ABSCESS CPT-4: 91537 01/23/2019 AEROBIC WOUND CULTURE & STN CPT-4: 57895 01/23/2019 ROUTINE VENIPUNCTURE CPT-4: 43442 03/29/2017 ASSAY THYROID STIM HORMONE CPT-4: 84600 03/29/2017 ASSAY OF FREE THYROXINE CPT-4: 97315 03/29/2017 COMPREHEN METABOLIC PANEL CPT-4: 53186 03/29/2017 COMPLETE CBC W/AUTO DIFF WBC CPT-4: 24842 03/29/2017 LIPID PANEL CPT-4: 71272 03/29/2017 ASSAY OF BLOOD/URIC ACID CPT-4: 18221 03/29/2017 RBC SED RATE AUTOMATED CPT-4: 04586 03/29/2017 ROUTINE VENIPUNCTURE CPT-4: 82042 03/15/2017 ACUTE HEPATITIS PANEL CPT-4: 48159 03/15/2017 HIV-1/HIV-2 1 RESULT ANTBDY CPT-4: 86885 03/15/2017 EXC TR-EXT B9+SHASHA 0.5 CM< CPT-4: 71049 03/15/2017 EXC TR-EXT B9+SHASHA 1.1-2 CM CPT-4: 95728 03/15/2017 URINALYSIS NONAUTO W/O SCOPE CPT-4: 59498 01/07/2015 URINE CULTURE/ COLONY COUNT CPT-4: 49347 01/07/2015 ROUTINE VENIPUNCTURE CPT-4: 06985 01/07/2015 ASSAY OF FREE THYROXINE CPT-4: 61178 01/07/2015 ASSAY THYROID STIM HORMONE CPT-4: 14587 01/07/2015 COMPREHEN METABOLIC PANEL CPT-4: 65428 01/07/2015 COMPLETE CBC W/AUTO DIFF WBC CPT-4: 07110 01/07/2015 LIPID PANEL CPT-4: 30879 01/07/2015 ASSAY OF PSA TOTAL CPT-4: 96336 01/07/2015 ASSAY OF BLOOD/URIC ACID CPT-4: 15244 01/07/2015 ROUTINE VENIPUNCTURE CPT-4: 46724 12/11/2013 ASSAY OF FREE THYROXINE CPT-4: 36487 12/11/2013 ASSAY THYROID STIM HORMONE CPT-4: 05486 12/11/2013 COMPREHEN METABOLIC PANEL CPT-4: 96735 12/11/2013 COMPLETE CBC W/AUTO DIFF WBC CPT-4: 98941 12/11/2013 LIPID PANEL CPT-4: 66074 12/11/2013 ASSAY OF BLOOD/URIC ACID CPT-4: 49451 12/11/2013 ASSAY OF PSA TOTAL CPT-4: 00038 12/11/2013 URINE CULTURE/ COLONY COUNT CPT-4: 60590 01/02/2013 AEROBIC WOUND CULTURE & STN CPT-4: 32059 10/10/2011 DRAINAGE OF SKIN ABSCESS CPT-4: 94597 10/10/2011 ASSAY OF CREATININE CPT-4: 35287 09/15/2011 ASSAY OF BLOOD/URIC ACID CPT-4: 63971 09/15/2011 ROUTINE VENIPUNCTURE CPT-4: 55946 07/28/2011 ANTINUCLEAR ANTIBODIES CPT-4: 12219 07/28/2011 RBC SED RATE AUTOMATED CPT-4: 25285 07/28/2011 ASSAY OF BLOOD/URIC ACID CPT-4: 65537 07/28/2011 COMPREHEN METABOLIC PANEL CPT-4: 19470 07/28/2011 C-REACTIVE PROTEIN CPT-4: 84297 07/28/2011 THYRO PERX CPT-4: 7815902 07/28/2011 DNA AB CPT-4: 3512236 07/28/2011 SJOGRENS CPT-4: 4719523 07/28/2011 ASSAY OF FREE THYROXINE CPT-4: 07786 07/28/2011 ASSAY THYROID STIM HORMONE CPT-4: 30021 07/28/2011 ROUTINE VENIPUNCTURE CPT-4: 84516 05/25/2011 COMPREHEN METABOLIC PANEL CPT-4: 07447 05/25/2011 COMPLETE CBC W/AUTO DIFF WBC CPT-4: 89924 05/25/2011 ANTINUCLEAR ANTIBODIES CPT-4: 64071 05/25/2011 RHEUMATOID FACTOR QUANT CPT-4: 96112 05/25/2011 ASSAY OF PSA TOTAL CPT-4: 03882 05/25/2011 ASSAY OF BLOOD/URIC ACID CPT-4: 37982 05/25/2011 LIPID PANEL CPT-4: 72326 05/25/2011 ROUTINE VENIPUNCTURE CPT-4: 31456 02/01/2011 ASSAY OF FREE THYROXINE CPT-4: 28733 02/01/2011 ASSAY THYROID STIM HORMONE CPT-4: 32814 02/01/2011 COMPREHEN METABOLIC PANEL CPT-4: 59076 02/01/2011 COMPLETE CBC W/AUTO DIFF WBC CPT-4: 86196 02/01/2011 LIPID PANEL CPT-4: 80086 02/01/2011 ASSAY OF PSA TOTAL CPT-4: 32967 02/01/2011 ROUTINE VENIPUNCTURE CPT-4: 86920 12/02/2010 ASSAY OF BLOOD/URIC ACID CPT-4: 78456 12/02/2010 EB VIRUS VCA G/M + EBNA + EA CPT-4: 59486|63904 x 2|11216 COMPLETE CBC W/AUTO DIFF WBC CPT-4: 84015 12/02/2010 COMPREHEN METABOLIC PANEL CPT-4: 10145 09/14/2009 ASSAY OF BLOOD/URIC ACID CPT-4: 44415 09/14/2009 ROUTINE VENIPUNCTURE CPT-4: 17226 09/14/2009 URINALYSIS NONAUTO W/O SCOPE CPT-4: 17078 09/01/2009 Vital Signs Date Vital 05/31/2019 Blood [...] 1: 118/64 Code: 8480-6 BMI: 29.7 Code: 88756-7 Heart Rate 1: 100 bpm Height: 5'6" Respiratory Rate: 22 bpm SpO2: 95% Tempera ture: 36.7 (C) / 98.0 (F) Weight: 187 lbs 02/27/2017 Blood Pressure 1: 132/76 Code: 8480-6 BMI: 30.8 Code: 91148-2 Heart Rate 1: 96 bpm Height: 5'6" Respiratory Rate: 22 bpm SpO2: 98% Tempera ture: 36.6 (C) / 97.8 (F) Weight: 194 lbs 03/31/2015 Blood Pressure 1: 128/90 Code: 8480-6 Heart Rate 1: 88 bpm Respiratory Rate: 20 bpm Temperature: 36.9 (C) / 98.4 (F) Weight: 192 lbs 01/07/2015 Blood Pressure 1: 132/80 Code: 8480-6 BMI: 30.2 Code: 69264-8 Heart Rate 1: 78 bpm Height: 5'6" Respiratory Rate: 22 bpm Temperature: 36 .7 (C) / 98.1 (F) Weight: 190 lbs 04/15/2014 Blood Pressure 1: 136/88 Code: 8480-6 BMI: 31.0 Code: 46573-7 Heart Rate 1: 84 bpm Height: 5'6" Respiratory Rate: 20 bpm Temperature: 36 .1 (C) / 97.0 (F) Weight: 192 lbs 12/10/2013 Blood Pressure 1: 142/90 Code: 8480-6 BMI: 29.1 Code: 84924-4 Heart Rate 1: 72 bpm Height: 5'7" Respiratory Rate: 20 bpm Temperature: 36 .6 (C) / 97.8 (F) Weight: 186 lbs 05/02/2013 Blood Pressure 1: 146/96 Code: 8480-6 BMI: 30.5 Code: 26918-2 Heart Rate 1: 88 bpm Height: 5'7" Respiratory Rate: 20 bpm Temperature: 37 .0 (C) / 98.6 (F) Weight: 195 lbs 01/02/2013 Blood Pressure 1: 132/84 Code: 8480-6 BMI: 30.2 Code: 46870-2 Heart Rate 1: 80 bpm Height: 5'7" Respiratory Rate: 20 bpm Temperature: 36 .9 (C) / 98.4 (F) Weight: 193 lbs 10/10/2011 Blood Pressure 1: 122/68 Code: 8480-6 BMI: 35.7 Code: 46785-4 Heart Rate 1: 84 bpm Height: 5'2" Temperature: 36.9 (C) / 98.5 (F) Weight: 195 lbs 08/12/2011 Blood Pressure 1: 110/80 Code: 8480-6 BMI: 36.9 Code: 35575-3 Heart Rate 1: 80 bpm Height: 5'2" Temperature: 36.4 (C) / 97.6 (F) Weight: 202 lbs 08/04/2011 Blood Pressure 1: 126/80 Code: 8480-6 BMI: 37.9 Code: 40992-9 Heart Rate 1: 76 bpm Height: 5'2" Respiratory Rate: 20 bpm Temperature: 37 .0 (C) / 98.6 (F) Weight: 207 lbs 05/24/2011 Blood Pressure 1: 122/82 Code: 8480-6 BMI: 37.7 Code: 33662-0 Heart Rate 1: 68 bpm Height: 5'2" Temperature: 36.7 (C) / 98.1 (F) Weight: 206 lbs 04/15/2011 Blood Pressure 1: 128/82 Code: 8480-6 BMI: 37.1 Code: 16837-0 Heart Rate 1: 68 bpm Height: 5'2" [...] 1: 106/62 Code: 8480-6 BMI: 36.8 Code: 53317-3 Heart Rate 1: 90 bpm Height: 5'2" SpO2: 94% Temperature: 36.4 (C) / 97.6 (F) Weight: 201 lbs 12/02/2010 Blood Pressure 1: 142/90 Code: 8480-6 BMI: 36.8 Code: 17991-0 Heart Rate 1: 96 bpm Height: 5'2" [...] success Encounters Encounter Performer Location Codes Date ([id number]) OFFICE/OUTPATIENT VISIT EST Diagnosis: Acute contact dermatitis[ICD10: L25.9] Azragamal BYRNE DO [facility] CPT-4: 45946 05/31/2019 ([id number]) OFFICE/OUTPATIENT VISIT EST Diagnosis: Acute contact dermatitis[ICD10: L25.9] Diagnosis: Acute sinusitis[ICD10: J01.90] [facility] 88[facility] 05/17/2019 ([id number]) OFFICE/OUTPATIENT VISIT EST Diagnosis: Acute gastritis without bleeding[ICD10: K29.00] Diagnosis: Essential (primary) hypertension[ICD10: I10] Diagnosis: Hyperlipidemia, unspecified[ICD10: E78.5] Azra BYRNE [facility] CPT-4: 69810 10/31/2018 ([id number]) OFFICE/OUTPATIENT VISIT EST Diagnosis: Acute gastritis without bleeding[ICD10: K29.00] Azar BYRNE [facility] CPT-4: 30654 01/18/2018 ([id number]) OFFICE/OUTPATIENT VISIT EST Diagnosis: Hyperlipidemia, unspecified[ICD10: E78.5] Diagnosis: Essential (primary) hypertension[ICD10: I10] Diagnosis: Weakness[ICD10: R53.1] Diagnosis: Sebaceous cyst[ICD10: L72.3] Diagnosis: Idiopathic gout, unspecified site[ICD10: M10.00] [facility] 56817 03/29/2017 OFFICE/OUTPATIENT VISIT EST Diagnosis: Pain in right knee[ICD10: M25.561] [facility] 95140 03/13/2017 OFFICE/OUTPATIENT VISIT EST Diagnosis: Pain in right leg[ICD10: M79.604] Diagnosis: Sebaceous cyst[ICD10: L72.3] Azra BYRNE [facility] CPT-4: 50037 02/27/2017 OFFICE/OUTPATIENT VISIT EST Diagnosis: Local infection of the skin and subcutaneous tissue, unspecified[ICD10: L08.9] Diagnosis: Essential (primary) hypertension[ICD10: I10] Diagnosis: Hyperlipidemia, unspecified[ICD10: E78.5] Dagmar Ahmadi SYLVIE COBB [employer] [facility] CPT-4: 23681 03/31/2015 ([id number]) PREV VISIT EST AGE 40-64 Diagnosis: History of chest pain[ICD9: V13.89] Diagnosis: Right flank pain[ICD9: 789.09] Diagnosis: ROUTINE MEDICAL EXAM[ICD9: V70.0] Diagnosis: HYPERTENSION[ICD9: 401.9] Diagnosis: HYPERLIPIDEMIA NEC/NOS[ICD9: 272.4] Diagnosis: Colon polyps[ICD9: 211.3] Diagnosis: HEMATURIA NOS[ICD9: 599.70] Dagmar ZhaoNoemi SYLVIE SammiFrancisco AGAPITO [employer] [facility] CPT-4: 94886 01/07/2015 OFFICE/OUTPATIENT VISIT EST Diagnosis: COUGH[ICD9: 786.2] Diagnosis: Rectal itching[ICD9: 698.0] Dagmar PavelNoemi SAINZ SammiFrancisco YVANSCARLETTDELMI [facility] CPT-4: 54220 04/15/2014 ([id number]) OFFICE/OUTPATIENT VISIT EST Diagnosis: ROUTINE MEDICAL EXAM[ICD9: V70.0] Diagnosis: GOUT[ICD9: 274.9] Diagnosis: HYPERLIPIDEMIA NEC/NOS[ICD9: 272.4] Diagnosis: HYPERTENSION[ICD9: 401.9] Sylvie Yvanjean claude SAINZ SammiFrancisco YVAN SILVERIO [facility] CPT-4: 56213 12/11/2013 ([id number]) OFFICE/OUTPATIENT VISIT EST Diagnosis: Shingles[ICD9: 053.9] Sylvie Yvanjean claude Phillips [facility]SC[facility]TTDELMI [facility] CPT-4: 41004 12/10/2013 ([id number]) OFFICE/OUTPATIENT VISIT EST Diagnosis: HYPERTENSION[ICD9: 401.9] Diagnosis: Colon polyps[ICD9: 211.3] Diagnosis: Stress reaction[ICD9: 308.9] Sylvie Yvanjean claude SAINZ SammiFrancisco AGAPITO [employer] [facility] CPT-4: 95281 05/02/2013 ([id number]) OFFICE/OUTPATIENT VISIT EST Diagnosis: URINARY TRACT INFECTION[ICD9: 599.0] ySlvie Phillips [facility] 77216 01/02/2013 OFFICE/OUTPATIENT VISIT EST Diagnosis: CELLULITIS OF TRUNK[ICD9: 682.2] Diagnosis: SPRAIN SHOULDER/ARM[ICD9: 840.9] Liza Phillips AGAPITO [facility] CPT-4: 20461 10/10/2011 ([id number]) OFFICE/OUTPATIENT VISIT EST Diagnosis: GOUT[ICD9: 274.9] Sylvie WILSONLINE SammiFrancisco AGAPITO [facility] CPT-4: 97706 09/15/2011 OFFICE/OUTPATIENT VISIT EST Diagnosis: DIARRHEA[ICD9: 787.91] Sylvie Yvanscarlettdelmi WILSONSYLVIE SammiFrancisco YVANSCARLETTMarvin Cagle [facility] CPT-4: 97398 08/12/2011 ([id number]) OFFICE/OUTPATIENT VISIT EST Diagnosis: GOUT[ICD9: 274.9] Diagnosis: Positive WENDI (antinuclear antibody)[ICD9: 795.79] Sylvie WILSONLINE SammiFrancisco AGAPITO [facility] CPT-4: 75329 08/04/2011 OFFICE/OUTPATIENT VISIT EST Diagnosis: Rash[ICD9: 782.1] Diagnosis: Joint pain[ICD9: 719.40] Diagnosis: Hyperlipidemia[ICD9: 272.4] Sylvie WILSONCHIQUITA Kulkarni RENDER [facility] CPT-4: 19652 05/24/2011 OFFICE/OUTPATIENT VISIT EST Diagnosis: PHARYNGITIS, ACUTE[ICD9: 462] Diagnosis: COUGH[ICD9: 786.2] Diagnosis: SINUSITIS, ACUTE[ICD9: 461.9] Sylvie WILSONLINE SammiFrancisco AGAPITO [facility] CPT-4: 94830 04/15/2011 OFFICE/OUTPATIENT VISIT EST Diagnosis: Clavicle fracture[ICD9: 810.00] Sylvie Yvanscarlettdelmi WILSONSYLVIE SammiFrancisco YVANJEAN CLAUDE [facility] CPT-4: 76964 01/13/2011 OFFICE/OUTPATIENT VISIT EST Diagnosis: Clavicle pain[ICD9: 719.41] Sylvie WILSONCHIQUITA Kulkarni RENDER [facility] CPT-4: 24249 12/23/2010 OFFICE/OUTPATIENT VISIT EST Diagnosis: Arm pain[ICD9: 729.5] Diagnosis: SPASM OF MUSCLE[ICD9: 728.85] Diagnosis: Neck pain[ICD9: 723.1] Sylvie Yvanjean claude Phillips YVANMARLIN Cagle [facility] CPT-4: 92430 12/15/2010 OFFICE/OUTPATIENT VISIT EST Diagnosis: HYPERTENSION[ICD9: 401.9] Diagnosis: PHARYNGITIS, ACUTE[ICD9: 462] Diagnosis: MALAISE AND FATIGUE[ICD9: 780.79] Diagnosis: GOUT[ICD9: 274.9] Sylvie CHAHAL CPT-4: 10188 12/02/2010 ([id number]) OFFICE/OUTPATIENT VISIT, EST Sylvie CHAHAL CPT-4: 37260 04/19/2010 ([id number]) OFFICE/OUTPATIENT VISIT, EST Sylvie CHAHAL CPT-4: 73639 04/14/2010 ([id number]) OFFICE/OUTPATIENT VISIT, NHAN CHAHAL CPT-4: 74925 09/01/2009 Plan of Care Planned Activity Notes [...] L25.9 05/31/2019 Patient Education: prednisone- [employer] Coupon [phone] https://www.[email or web address]/[employer]/resources/getResource/61/[email or web address] Completed 05/31/2019 Visit Diagnosis Plan: Acute contact dermatitis Discuss ion: Kenalog 40mg IM now Cover with [employer] Call in 1week on how doing Medrol Dose Pack ICD-9 : 692.9 ICD-10 : L25.9 05/17/2019 Appointment: Sylvie Byrne WPtel: [phone] [facility] ACUTE ILLNESS 05/17/2019 Patient Education: Medrol (Nicholas)- [employer] Coupon [phone] https://www.gridComm/[employer]/resources/getResource/61/[email or web address] Completed 05/17/2019 Visit Diagnosis Plan: Abscess of chest wall Discussion : patient has large amount of induration still noted despite recent drainage and antibiotics. dr. najera's office was called and they were able to see patient today. patient was sent over there for possible surgery. ICD-9 : 682.2 ICD-10 : L02.213 01/25/2019 Appointment: Azra Bradley [address] [place], [place] [address] FOLLOW UP 01/25/2019 Visit Diagnosis Plan: Abscess [...] ICD-10 : L02.213 01/23/2019 Appointment: Azra Bradley [address] [place], [place] [address] Patient called 01/21/19 to [facility] 01/23 appt OF FICE SURGERY 01/23/2019 Patient Education: clindamycin HCl- [employer] Coupon [id number] https://www.[email or web address].com/samplemd/resources/getResource/61/[email or web address]-[email or web address] Completed 01/23/2019 Appointment: Azra Bradley [address] [place], [place] [id number] CANCELED 01/16/2019 Visit Diagnosis Plan: Acute gastritis [...] ICD-10 : E78.5 10/31/2018 Appointment: Azra Bradley [address] [place], [place] [address] ACUTE ILLNESS 10/31/2018 Patient Education: High Blood [...] : K29.00 01/18/2018 Appointment: Azra Bradley [address] [facility] ACUTE ILLNESS 01/18/2018 Patient Education: Patient Medication Summary Completed 01/18/2018 Appointment: Sylvie Byrne WPtel: [facility] LAB 03/29/2017 Patient Education: Patient [...] : L72.3 03/15/2017 Appointment: Azra Bradley [address] [facility] OFFICE SURGERY 03/15/2017 Patient Education: Patient Medication [...] : M25.561 03/13/2017 App[facility] [facility] 03/13/2017 Patient Education: Patient Medication Summary Completed 03/13/2017 Care Plan: X-RAY EXAM OF KNEE 1 [place] 2 [place] : [address]3 Pending 03/13/2017 Visit Diagnosis Plan: Pain in [...] ICD-10 : L72.3 02/27/2017 Appointment: Azra Bradley [address] [place] [address] ACUTE ILLNESS 02/27/2017 Patient Education: Patient Medication Summary Completed 02/27/2017 Appointment: Katerina Sousa WPtel: [phone] [place] [address] ACUTE ILLNESS 08/21/2015 Visit Plan: Has been off of Pravastatin. Will resume Pravastitin 20mg. and re- check labs in 3 months, Resume Lisinopril and Allopurinol Warm moist compresses to left chest lesion Complete doxycycline Return check after antibiotics completed if no improvement in lesion to left chest will refer for removal of nodular skin lesion upper right back. 03/31/2015 Appointment: Dagmar Ahmadi WPtel: [address] [place], [place] [address] 03/30 Confirmed ~sl FOLLOW UP 03/31/2015 Patient Education: Patient Medication Summary Completed 03/31/2015 Visit Plan: CBC, CMP, TSH, Free T4, Lipi d Panel, Uric Acid, PSA, EKG Urine culture today Increase fluids to >120cc's daily. Notify if flank pain increases. Resume Lisinopril 20 mg PO daily Resume Allopurinol 100 mg Ciprofloxacin 500 mg PO bid Scheudule appt. for follow-up Colonscopy - [place] 01/07/2015 Appointment: Dagmar Ahmadi WPtel: [phone] [phone] 01/06 appointment confirmed cn Annual Well Visit 01/07/2015 Patient Education: Patient Medication Summary Completed 01/07/2015 Patient Education: [facility] - Saving [employer] - Lisinopril - 18-64 - Dynamic Portal ID Completed 01/07/2015 Appointment: Sylvie Byrne WPtel: [address] [place] [address] ACUTE ILLNESS 08/26/2014 Appointment: Dagmar Ahmadi WPtel: [address] [place] [address] ACUTE ILLNESS 04/15/2014 Patient Education: Patient Medication Summary Completed 04/15/2014 Appointment: Sylvie Byrne WPtel: [address] [place] [address] US LAB 12/11/2013 Patient Education: Patient Medication Summary Completed 12/11/2013 Visit Plan: Check CBC, CMP, TSH, Free T4 , Lipids, uric acid, PSA--pt will return in AM for fasting lab Finish acyclovir Discussed Zostavax down road 12/10/2013 Appointment: Sylvie Byrne WPtel: [address] [place] [address] 12/06 left message FOLLOW UP 12/10/2013 Patient Education: Patient Medication Summary Completed 12/10/2013 Visit Plan: Lisinopril 20mg daily Stress Reducers and trial of fluoxetine 10mg q am Proceed with colonoscopy Check fasting lab 05/02/2013 Appointment: Sylvie Byrne WPtel: [address] [place] [address] ACUTE ILLNESS 05/02/2013 Patient Education: Patient Medication Summary Completed 05/02/2013 Appointment: Sylvie Byrne WPtel: [address] [place] [address] ACUTE ILLNESS 01/02/2013 Patient Education: Patient Medication Summary Completed 01/02/2013 Appointment: Liza Ragsdale WPtel: [address] [place] [address] ACUTE ILLNESS 10/10/2011 Patient Education: Patient Medication Summary Completed 10/10/2011 App[facility]ment: [facility] [id number] [id number] [facility] 09/15/2011 Patient Education: Patient [...] Will seek re-eval if symptoms worsen or 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 08/12/2011 Appointment: Liza Ragsdale WPtel: [address] [place] [address] ACUTE ILLNESS 08/12/2011 Patient Education: Patient Medication Summary Completed 08/12/2011 Visit Plan: Continue increased dose of a llopurinol and daily colcrys Recheck thyroid lab, uric acid and PSA in 3mos Will hold on NSAID at this time due to history of GERD 08/04/2011 Appointment: Sylvie Byrne WPtel: [address] [place], [place] [id number] FOLLOW UP 08/04/2011 Patient Education: Patient Medication Summary Completed 08/04/2011 Appointment: Sylvie Byrne WPtel: [address] [place], [place] [id number] [place] LAB 07/28/2011 Patient Education: Patient Medication Summary Completed 07/28/2011 Appointment: Sylvie Byren WPtel: [address] [place], [place] [id number] [place] LAB 05/25/2011 Patient Education: Patient Medication [...] at night. 05/24/2011 Appointment: Liza Ragsdale WPtel: [address] [place] [address] ACUTE ILLNESS 05/24/2011 Patient Education: Patient Medication Summary Completed 05/24/2011 Visit Plan: codeine/guif cough syrup and cefdinir are phoned to [facility]. Discussed fluids and rest. Pt. will notify if symptoms persist or worsen. 04/15/2011 Appointment: Liza Ragsdale WPtel: [address] [place] [address] ACUTE ILLNESS 04/15/2011 Patient Education: Patient Medication Summary Completed 04/15/2011 Appointment: Sylvie Byrne WPtel: [address] [place] [address] LAB 02/01/2011 Patient Education: Patient Medication Summary Completed 02/01/2011 Visit Plan: Repeat clavicle x-ray in 6wk s Check bone density 01/13/2011 Appointment: Sylvie Byrne WPtel: [address] [place] [address] FOLLOW UP 01/13/2011 Patient Education: Patient Medication Summary Completed 01/13/2011 Visit Plan: Check right clavicle and alda ulder x-ray Continue Vimovo and flexeril 12/23/2010 Appointment: Sylvie Byrne WPtel: [address] [place] [address] FOLLOW UP 12/23/2010 Patient Education: Patient Medication Summary Completed 12/23/2010 Appointment: Sylvie Byrne WPtel: [address] [place] [address] ER Follow UP 12/15/2010 Patient Education: Patient [...] BP check. 12/02/2010 Appointment: Liza Ragsdale WPtel: [address] [place], [place] [id number] ACUTE ILLNESS 12/02/2010 Patient Education: Patient Medication Summary Completed 12/02/2010 Care Plan: ASSAY OF BLOOD/URIC ACID Pendi ng 12/02/2010 Care Plan: VCA AB G/M Pending 2010 Care Plan: EB GARY AG Pending 2010 Care Plan: EB NUCL AB Pending 2010 Appointment: Sylvie Byrne WPtel: [address] [place] [address] [place] FOLLOW UP 11/18/2010 Visit Plan: benadryl 25 mg tab QHS. 12.5 mg tab every 8 hrs during the day. Pt. will notify if symptoms worsen. No facial edema present. 04/19/2010 Appointment: Liza Ragsdale WPtel: [address] [place] [address] FOLLOW UP 04/19/2010 Patient Education: Patient Medication [...] no improvement. 04/14/2010 Appointment: Liza Ragsdale WPtel: [address] [place], [place] [id number] ACUTE ILLNESS 04/14/2010 Patient Education: Patient Medication Summary Completed 04/14/2010 Appointment: Liza Ragsdale WPtel: [address] [place], [place] [phone] ACUTE ILLNESS 03/12/2010 Appointment: [facility] [phone] [id number] [place] [facility] 09/14/2009 Patient Education: Patient Medication Summary Completed 09/14/2009 Appointment: [facility] [phone] [id number] [facility] 09/01/2009 Patient Education: Patient [...] 100 mg Ciprofloxacin 500 mg PO bid [facility] appt. for follow-up Colonscopy - Candido . 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 . Continue increased dose of [...]
--- OUTSIDE RECORDS SUMMARY | 2019-10-17 10:36 | XMS REPORT | CCD ---
Author Author Renan Byrne D.O. Organization [facility] Address [address] [place] [address] Phone Care Team Providers Care Dock Operator Name Role Phone Sylvie Byrne D.O., PP Unavailable CCM Unavailable Summary Purpose Interface Exchange Insurance Providers Payer name Policy type / Coverage type Covered democrat ID Effective Begin Date Effective End Date WPS MEDIC[place] PART B [place] Medicare Part B [id number] Unknown [facility] Medicare Part B [id number] Unknown Family History Family History data not found Social History Social History Element Codes Description Effective Dates Tobacco history SNOMED CT: 599564500 Nonsmoker 12/02/2010 Allergies, Adverse Reactions, Alerts Substance [...] Fill Instructions prednisone 20 mg tablet RxNorm: 006869 1 Tablet(s) Oral two latonia es a day 05/31/2019 06/05/2019 Active Elimite 5 % topical cream RxNorm: 862732 Application To pical QPM from head to toe 05/17/2019 07/16/2019 Active Medrol (Nicholas) 4 mg tablets in a dose pack RxNorm: 064707 6 Tablet(s) Oral QD --then as directed 05/17/2019 05/23/2019 Inactive Osteo Bi-Flex 250 mg-200 mg tablet RxNorm: 683411 2 Tablet(s) O ral QD 01/23/2019 No Stop Date Active clindamycin HCl 300 mg capsule RxNorm: 603263 2 Capsule (s) Oral three times a day 01/23/2019 01/30/2019 Inactive Flagyl 500 mg tablet RxNorm: 500621 1 Tablet(s) PO BID 10/31/2018 Inactive lisinopril 20 mg tablet RxNorm: 360925 1 Tablet(s) PO QD for bl ood pressure 09/13/2018 12/11/2018 Inactive allopurinol 100 mg tablet RxNorm: 468554 1 Tablet(s) PO QD 09/14/19 19 12/11/2018 Inactive Flagyl 500 mg tablet RxNorm: 683056 1 Tablet(s) PO BID 01/18/2018 Inactive Cipro 250 mg tablet RxNorm: 530834 1 Tablet(s) PO BID 01/18/201801/08 Inactive lisinopril 20 mg tablet RxNorm: 037103 1 Tablet(s) PO QD for bl ood pressure 11/06/2017 02/03/2018 Inactive allopurinol 100 mg tablet RxNorm: 148560 1 Tablet(s) PO QD 11/07/19 18 02/03/2018 Inactive allopurinol 100 mg tablet RxNorm: 706219 1 Tablet(s) PO QD 04/11/19 18 10/07/2017 Inactive lisinopril 20 mg tablet RxNorm: 950652 1 Tablet(s) PO QD for bl ood pressure 04/07/2017 11/05/2017 Inactive prednisone 20 mg tablet RxNorm: 996525 2 Tablet(s) PO QD 03/15/2017 1 05/18/2016 Inactive tramadol 50 mg tablet RxNorm: 636045 1-2 Tablet(s) PO TID as needed 03/13/2017 08/06/2017 Inactive Medrol (Nicholas) 4 mg tablets in a dose pack RxNorm: 175802 Tablet(s) PO As Directed 02/28/2017 08/01/2017 Inactive allopurinol 100 mg tablet RxNorm: 397098 1 Tablet(s) PO QD 04/11/19 17 04/11/2017 Inactive lisinopril 20 mg tablet RxNorm: 066754 1 Tablet(s) PO QD for bl ood pressure 04/11/2016 04/07/2017 Inactive pravastatin 20 mg tablet RxNorm: 095586 1 Tablet(s) PO QD 01/13/2016 02/26/2017 Inactive pravastatin 20 mg tablet RxNorm: 551315 TAKE 1 TABLET DAILY 016 01/13/2016 Inactive pravastatin 40 mg tablet RxNorm: 576344 1 Tablet(s) PO QD 03/31/2015 03/31/2015 Inactive pravastatin 20 mg tablet RxNorm: 305859 1 Tablet(s) PO QD 03/31/2015 06/28/2015 Inactive doxycycline hyclate 100 mg capsule RxNorm: 9701122 1 Capsule(s) PO BID 03/31/2015 04/09/2015 Inactive mupirocin 2 % topical ointment RxNorm: 640121 Apply TOP BID to affected lesions 03/31/2015 08/01/2017 Inactive pravastatin 40 mg tablet RxNorm: 088084 1 Tablet(s) PO QD 01/08/2015 03/30/2015 Inactive lisinopril 20 mg tablet RxNorm: 167030 1 Tablet(s) PO QD for bl ood pressure 01/07/2015 12/31/2015 Inactive allopurinol 100 mg tablet RxNorm: 596489 1 Tablet(s) PO QD 01/08/20 15 04/10/2016 Inactive ciprofloxacin 500 mg tablet RxNorm: 819230 1 Tablet(s) PO BID 01/0701/13/2015 Inactive doxycycline hyclate 100 mg capsule RxNorm: 0420238 1 Capsule(s) PO BID 04/15/2014 04/24/2014 Inactive fluoxetine 10 mg capsule RxNorm: 972215 1 Capsule(s) PO QAM 014 04/14/2014 Inactive lisinopril 20 mg tablet RxNorm: 327690 1 Tablet(s) PO QD for bl ood pressure 05/02/2013 04/26/2014 Inactive Cipro 500 mg tablet RxNorm: 238665 1 Tablet(s) PO BID 01/02/201312/10 Inactive Cipro 500 mg tablet RxNorm: 442756 1 Tablet(s) PO BID 01/02/20130 04/2012 Inactive doxycycline hyclate 100 mg Cap RxNorm: 863054 1 Capsule(s) PO BID 0 10/10/2011 10/19/2011 Inactive Culturelle 10 billion cell Cap RxNorm: 698846 1 Capsule(s) PO BID 0 08/12/2011 09/10/2011 Inactive Colcrys 0.6 mg Tab RxNorm: 234297 1 Tablet(s) PO BID 08/04/201111/30 Inactive allopurinol 100 mg Tab RxNorm: 138124 1 Tablet(s) PO BID 07/13/2011 0 08/03/2011 Inactive clotrimazole-betamethasone 1 %-0.05 % Topical Cream RxNorm: 485674 1 Application TOP BID 06/10/2011 06/23/2011 Inactive clotrimazole-betamethasone 1 %-0.05 % Topical Cream RxNorm: 661531 1 Application TOP BID 05/24/2011 06/06/2011 Inactive Colcrys 0.6 mg Tab RxNorm: 178928 1 Tablet(s) PO BID 05/24/201108/02 Inactive cefdinir 300 mg Cap RxNorm: 698048 1 Capsule(s) PO BID 04/15/2011 Inactive Daypro 600 mg Tab RxNorm: 401747 1 Tablet(s) PO BID 12/15/20102010 Inactive for pain Medrol (Nicholas) 4 mg Tabs in a Dose Pack RxNorm: 000669 Tablet(s) PO 0 12/09/2010 12/15/2010 Inactive as directed Colcrys 0.6 mg Tab RxNorm: 415338 1 Tablet(s) PO BID 12/06/201001/04 Inactive lisinopril-hydrochlorothiazide 20 mg-12.5 mg Tab RxNorm: 197 886 1 Tablet(s) PO QAM 12/02/2010 01/30/2011 Inactive ranitidine 150 mg tablet RxNorm: 0121501 1 Tablet(s) PO BID Pt will phone before filing this script. 04/14/2010 05/13/2010 Inactive allopurinol 100 mg Tab RxNorm: 452911 1 Tablet(s) PO BID 09/16/2009 0 11/14/2009 Inactive lisinopril-hydrochlorothiazide 20 mg-12.5 mg Tab RxNorm: 197 886 1 Tablet(s) PO QAM 06/23/2009 08/31/2009 Inactive ibuprofen 200 mg tablet RxNorm: 764538 4 Tablet(s) PO QAM No Start Da te Active Zithromax Z-Nicholas 250 mg Tab RxNorm: 583044 Tablet(s) PO as direc tenzin No Start Date 01/12/2011 Inactive Ultram Oral RxNorm: Oral No Start Date 01/01/2013 Inactive allopurinol 100 mg tablet RxNorm: 059505 1 Tablet(s) PO QD No Start Date 01/06/2015 Inactive pravastatin 40 mg tablet RxNorm: 379281 1 Tablet(s) PO QD No Start Date 01/07/2015 Inactive Naprosyn 500 mg tablet RxNorm: 410696 1 Tablet(s) PO BID No Start D ate 05/01/2013 Inactive azithromycin 250 mg tablet RxNorm: 095216 2 Tablet(s) P O QD take 2 tablets (500 mg) by oral route once daily for 1 day then 1 tablet (250 mg) by oral route once daily for 4 days No Start Date 01/12/2011 Inactive allopurinol 300 mg Tab RxNorm: 802527 1 Tablet(s) PO QD No Start Da te 01/01/2013 Inactive Colcrys 0.6 mg tablet RxNorm: 214298 1 Tablet(s) PO BID No Start Da te 05/01/2013 Inactive Medrol (Nicholas) 4 mg tablets in a dose pack RxNorm: 677472 Tablet(s) PO As Directed No Start Date 02/27/2017 Inactive hydrocodone 5 mg-acetaminophen 325 mg tablet RxNorm: 564769 1 Tablet(s) PO Q4H as needed for pain No Start Date 12/09/2013 Inactive ranitidine 150 mg Tab RxNorm: 2832008 1 Tablet(s) PO BID No Start D ate 04/13/2010 Inactive Allopurinol 100 mg Tab RxNorm: 397765 1 Tablet(s) PO BID No Start D ate 09/15/2009 Inactive coenzyme Q10 200 mg capsule RxNorm: 525003 1 Capsule(s) PO QD No St art Date 03/30/2015 Inactive Mobic 7.5 mg tablet RxNorm: 014930 1 Tablet(s) PO QD No Start Date Inactive Osteo Bi-Flex (5-Loxin) 1,500 mg-400 unit-100 mg tablet RxNo rm: 1 Tablet(s) PO BID No Start Date 03/30/2015 Inactive hydrocodone-acetaminophen 7.5 mg-325 mg Tab RxNorm: 209632 1-2 Tablet(s) PO Q4-6H No Start Date 08/03/2011 Inactive as needed for pa in Neurontin 300 mg capsule RxNorm: 413250 1 Capsule(s) PO QD No Start Date 12/09/2013 Inactive Medrol (Nicholas) 4 mg Tabs in a Dose Pack RxNorm: 782926 Tablet(s) PO N o Start Date 12/08/2010 Inactive as directed Vitamin D2 1,000 unit capsule RxNorm: 661590 1 Capsule(s) PO QD No Start Date 03/30/2015 Inactive Flexeril 10 mg Tab RxNorm: 630216 1 Tablet(s) PO TID No Start Date Inactive for spasm Medication Administered No Medication Administered data Immunizations No Immunization data Results Observation Observation Code Item Item Code Result Date S ervice Location C DIFF MOL [id number] C Diff Mol Int Negative 11/02/2018 Unk nown C Diff An [id number] C Diff Analyzer Indeterminate 9 Unknown GFR CALC 7663720 GFR Non Afr Amr >60 mL/min 11/01/2018 Un known GFR CALC 4060768 GFR Afr Amr >60 mL/min 11/01/[address] LDL 8794796 HDL CHOLESTEROL 46 mg/dL 11/01/[address] LDL 0199564 Cholesterol 198 mg/dL 11/01/[address] LDL 7894151 Triglyceride 104 mg/dL 11/01/[address] LDL 5400080 LDL Direct 158 mg/dL 11/01/[address] LDL 9496625 NON-HDL Chol 152 mg/dL 11/01/2018 Unkno wn THYROID STIMULATING HORMONE 33987 TSH 1.276 uIU/mL 11/01/2018 Unknown COMPREHENSIVE METABOLIC 39190 AST 22 U/L 2018 Unknown COMPREHENSIVE METABOLIC 13805 ALT 17 U/L 2018 Unknown COMPREHENSIVE METABOLIC 52032 BUN 16 mg/dL 2018 Unknown COMPREHENSIVE METABOLIC 42806 ALBUMIN 4.3 g/dL 2018 Unknown COMPREHENSIVE METABOLIC 03285 CHLORIDE 103 mmol/L 11/01 Unknown COMPREHENSIVE METABOLIC 10955 Bili Total 0.9 mg/dL 11/01 Unknown COMPREHENSIVE METABOLIC 72537 ALK PHOS 62 U/L 2018 Unknown COMPREHENSIVE METABOLIC 56286 SODIUM 138 mmol/L 11/01 Unknown COMPREHENSIVE METABOLIC 86979 CREATININE 0.87 mg/dL 10/09 Unknown COMPREHENSIVE METABOLIC 03164 CALCIUM 9.2 mg/dL 2018 Unknown COMPREHENSIVE METABOLIC 36341 POTASSIUM 4.1 mmol/L 11/01 Unknown COMPREHENSIVE METABOLIC 92056 Total Protein 7.2 g/dL Unknown COMPREHENSIVE METABOLIC 10953 Glucose 81 mg/dL 2018 Unknown COMPREHENSIVE METABOLIC 14996 Bicarbonate 18 mmol/L 10/09 Unknown COMPREHENSIVE METABOLIC 38150 AGAP 17 mmol/L 2018 Unknown COMPLETE BLOOD COUNT 1825263 WBC 8.8 10e9/L 11/02/19 19 Unknown COMPLETE BLOOD COUNT 2341271 RBC 4.54 10e12/L 2018 Unknown COMPLETE BLOOD COUNT 9790928 HEMOGLOBIN 14.4 g/dL 11/02/19 19 Unknown COMPLETE BLOOD COUNT 5886267 HEMATOCRIT 44.0 % 11/02/19 19 Unknown COMPLETE BLOOD COUNT 0518449 MCV 96.9 fL 9 Unknown COMPLETE BLOOD COUNT 7073627 MCH 31.7 pg 9 Unknown COMPLETE BLOOD COUNT 9807364 MCHC 32.7 g/dL 9 Unknown COMPLETE BLOOD COUNT 6404621 PLATELET COUNT 239 10e9/L Unknown COMPLETE BLOOD COUNT 1796749 Mean Plt Volume 10.5 fL Unknown COMPLETE BLOOD COUNT 0456586 NRBC Absolute 0.00 10e9/L Unknown COMPLETE BLOOD COUNT 7129081 Neut Auto 65.2 % 9 Unknown COMPLETE BLOOD COUNT 0325690 NRBC/100 WBC 0.0 2018 Unknown COMPLETE BLOOD COUNT 7773079 Lymph Auto 23.1 % 11/02/19 19 Unknown COMPLETE BLOOD COUNT 2590947 [place] Auto 9.5 % 9 Unknown COMPLETE BLOOD COUNT 4359972 RDW 12.2 % 9 Unknown COMPLETE BLOOD COUNT 9546806 Eos Auto 1.7 % 9 Unknown COMPLETE BLOOD COUNT 1017304 Baso Auto 0.3 % 9 Unknown COMPLETE BLOOD COUNT 5322437 Neutrophil Abs 5.73 10e9/L Unknown COMPLETE BLOOD COUNT 6787987 Imm Gran Auto 0.2 % 11/01 Unknown COMPLETE BLOOD COUNT 9014539 Lymphocyte Abs 2.03 10e9/L Unknown COMPLETE BLOOD COUNT 1876658 Monocyte Abs 0.84 10e9/L 10/09 Unknown COMPLETE BLOOD COUNT 4848394 Eosinophil Abs 0.15 10e9/L Unknown COMPLETE BLOOD COUNT 1093122 RDW-SD 43.4 fL 9 Unknown COMPLETE BLOOD COUNT 7537517 Basophil Abs 0.03 10e9/L 10/09 Unknown COMPLETE BLOOD COUNT [id number] Imm Gran Abs 0.02 10e9/L 10/09 Unknown COMPREHENSIVE METABOLIC 78873 AST 17 U/L 2016 Unknown COMPREHENSIVE METABOLIC 55752 ALT 16 U/L 2016 Unknown COMPREHENSIVE METABOLIC 07739 BUN 15 mg/dL 2016 Unknown COMPREHENSIVE METABOLIC 80210 ALBUMIN 4.4 g/dL 2016 Unknown COMPREHENSIVE METABOLIC 46856 CHLORIDE 104 mmol/L 03/29 Unknown COMPREHENSIVE METABOLIC 38345 Bili Total 0.5 mg/dL 03/29 Unknown COMPREHENSIVE METABOLIC 00865 ALK PHOS 56 U/L 2016 Unknown COMPREHENSIVE METABOLIC 77428 SODIUM 139 mmol/L 03/29 Unknown COMPREHENSIVE METABOLIC 28064 CREATININE 0.88 mg/dL 03/11 Unknown COMPREHENSIVE METABOLIC 12266 CALCIUM 9.8 mg/dL 2016 Unknown COMPREHENSIVE METABOLIC 41002 POTASSIUM 4.2 mmol/L 03/29 Unknown COMPREHENSIVE METABOLIC 94529 Total Protein 6.8 g/dL Unknown COMPREHENSIVE METABOLIC 05338 Glucose 100 mg/dL 2016 Unknown COMPREHENSIVE METABOLIC 50372 Bicarbonate 30 mmol/L 03/11 Unknown COMPREHENSIVE METABOLIC 39361 AGAP 5 mmol/L 2016 Unknown THYROID STIMULATING HORMONE 50377 TSH 1.077 uIU/mL 03/29/2017 Unknown URIC ACID 20869 URIC ACID 5.2 mg/dL 03/29/2017 Unknown FREE T4 98370 T4 Free 1.04 ng/dL 03/29/2017 Unknown ERYTHROCYTE SEDIMENTATION RATE 42704 Sed Rate 21 mm/hr 03/29/2017 Unknown COMPLETE BLOOD COUNT 1794335 WBC 5.9 10e9/L 03/29/20 17 Unknown COMPLETE BLOOD COUNT 7591859 RBC 4.52 10e12/L 2016 Unknown COMPLETE BLOOD COUNT 3865521 HEMOGLOBIN 14.6 g/dL 03/29/20 17 Unknown COMPLETE BLOOD COUNT 8025356 HEMATOCRIT 44.7 % 03/29/20 17 Unknown COMPLETE BLOOD COUNT 9805077 MCV 98.9 fL 7 Unknown COMPLETE BLOOD COUNT 4970033 MCH 32.3 pg 7 Unknown COMPLETE BLOOD COUNT 1019425 MCHC 32.7 g/dL 7 Unknown COMPLETE BLOOD COUNT 3892393 PLATELET COUNT 262 10e9/L Unknown COMPLETE BLOOD COUNT 1579945 Mean Plt Volume 10.1 fL Unknown COMPLETE BLOOD COUNT 3866180 Neut Auto 44.2 % 7 Unknown COMPLETE BLOOD COUNT 2875705 Lymph Auto 41.5 % 03/29/20 17 Unknown COMPLETE BLOOD COUNT 3720830 [place] Auto 11.2 % 7 Unknown COMPLETE BLOOD COUNT 2418360 RDW 12.3 % 7 Unknown COMPLETE BLOOD COUNT 6678319 Eos Auto 2.6 % 7 Unknown COMPLETE BLOOD COUNT 2506615 Baso Auto 0.5 % 7 Unknown COMPLETE BLOOD COUNT 5044202 Neutrophil Abs 2.61 10e9/L Unknown COMPLETE BLOOD COUNT 0176164 Lymphocyte Abs 2.45 10e9/L Unknown COMPLETE BLOOD COUNT 2345082 Monocyte Abs 0.66 10e9/L 03/11 Unknown COMPLETE BLOOD COUNT 5457782 Eosinophil Abs 0.15 10e9/L Unknown COMPLETE BLOOD COUNT 1031379 RDW-SD 43.7 fL 7 Unknown COMPLETE BLOOD COUNT 8789123 Basophil Abs 0.03 10e9/L 03/11 Unknown LIPID GROUP 13147 Cholesterol 248 mg/dL 03/29/2017 Unkno wn LIPID GROUP 00640 Triglyceride 87 mg/dL 03/29/2017 Unkn own LIPID GROUP 00990 HDL CHOLESTEROL 49 mg/dL 03/29/2017 U nknown LIPID GROUP 20968 Chol/HDL Ratio 5.06 ratio 03/29/2017 U nknown LIPID GROUP 66293 NON-HDL Chol 199 mg/dL 03/29/2017 Unkn own LIPID GROUP 32899 LDL Cholesterol 182 mg/dL 03/29/2017 U nknown GFR CALC 3890155 GFR Non Afr Amr >60 mL/min 03/29/2017 Un known GFR CALC 8180118 GFR Afr Amr >60 mL/min 03/29/2017 Unknow n HIV AG/AB 7332944 HIV Ag/Ab Non-Reactive 03/15/2017 Unkno wn VIRAL HEPATITIS PROFILE #2 67295 Hep A IgM Non-Reactive 03/15/2017 Unknown VIRAL HEPATITIS PROFILE #2 09380 Hep B Core IgM Non-Reac tive 03/15/2017 Unknown VIRAL HEPATITIS PROFILE #2 77757 Hepatitis C Ab Non-Reac tive 03/15/2017 Unknown VIRAL HEPATITIS PROFILE #2 79426 Hep Bs Ag Non-Reactive 03/15/2017 Unknown COMPREHENSIVE METABOLIC 21018 AST 23 U/L 2014 Unknown COMPREHENSIVE METABOLIC 84310 ALT 21 IU/L 2014 Unknown COMPREHENSIVE METABOLIC 61781 BUN 13 MG/DL 2014 Unknown COMPREHENSIVE METABOLIC 83379 ALBUMIN 4.3 GM/DL 2014 Unknown COMPREHENSIVE METABOLIC 49962 CHLORIDE 105 MMOL/L 01/07 Unknown COMPREHENSIVE METABOLIC 83774 BILI TOT 0.7 MG/DL 2014 Unknown COMPREHENSIVE METABOLIC 82358 ALK PHOS 51 U/L 2014 Unknown COMPREHENSIVE METABOLIC 49126 SODIUM 139 MMOL/L 01/07 Unknown COMPREHENSIVE METABOLIC 67349 CREATININE 0.85 MG/DL 12/11 Unknown COMPREHENSIVE METABOLIC 92784 CALCIUM 9.5 MG/DL 2014 Unknown COMPREHENSIVE METABOLIC 37597 POTASSIUM 4.4 MMOL/L 01/07 Unknown COMPREHENSIVE METABOLIC 41160 PROT TOT 6.7 GM/DL 2014 Unknown COMPREHENSIVE METABOLIC 46126 Glucose 100 MG/DL 2014 Unknown COMPREHENSIVE METABOLIC 46125 BICARB 27 MMOL/L 2014 Unknown COMPREHENSIVE METABOLIC 94289 ANION GAP 7 MEQ/L 2014 Unknown THYROID STIMULATING HORMONE 29926 TSH 0.900 uIU/ML 01/07/2015 Unknown COMPLETE BLOOD COUNT 0136118 WBC 4.9 10e9/L 01/08/20 15 Unknown COMPLETE BLOOD COUNT 3322024 RBC 4.71 10e12/L 2014 Unknown COMPLETE BLOOD COUNT 1626917 HGB 15.3 g/dL 5 Unknown COMPLETE BLOOD COUNT 3302776 HCT DET 46.1 % 5 Unknown COMPLETE BLOOD COUNT 5909761 MCV 97.9 fL 5 Unknown COMPLETE BLOOD COUNT 2770636 MCH 32.5 pg 5 Unknown COMPLETE BLOOD COUNT 9721778 MCHC 33.2 g/dL 5 Unknown COMPLETE BLOOD COUNT 5466464 PLT 227 10e9/L 01/08/20 15 Unknown COMPLETE BLOOD COUNT 1233172 MPV 10.9 fL 5 Unknown COMPLETE BLOOD COUNT 6691048 VERONIQUE % 53.0 % 5 Unknown COMPLETE BLOOD COUNT 2334832 LY % 35.8 % 5 Unknown COMPLETE BLOOD COUNT 0798989 MON % 8.6 % 5 Unknown COMPLETE BLOOD COUNT 8417062 EOS % 2.2 % 5 Unknown COMPLETE BLOOD COUNT 5396989 BASO % 0.4 % 5 Unknown COMPLETE BLOOD COUNT 8535554 RDW 12.9 % 5 Unknown COMPLETE BLOOD COUNT 5890084 ABS VERONIQUE 2.60 10e9/L 015 Unknown COMPLETE BLOOD COUNT 5168605 ABS LYMPH 1.75 10e9/L 015 Unknown COMPLETE BLOOD COUNT 4710011 ABS MONO 0.42 10e9/L 015 Unknown COMPLETE BLOOD COUNT 2570666 ABS EOS 0.11 10e9/L 015 Unknown COMPLETE BLOOD COUNT 0809253 ABS BASO 0.02 10e9/L 015 Unknown COMPLETE BLOOD COUNT 6904270 RDW-SD 45.7 fL 5 Unknown URIC ACID 50451 URIC ACID 6.7 MG/DL 01/07/2015 Unknown LIPID GROUP 73996 HDL TEST 52 MG/DL 01/07/2015 Unknown LIPID GROUP 24328 TRIG 158 MG/DL 01/07/2015 Unknown LIPID GROUP 40697 TEST LDL 157 MG/DL 01/07/2015 Unknown LIPID GROUP 60639 CHOL 241 MG/DL 01/07/2015 Unknown LIPID GROUP 49397 RCHOL/HDL 4.63 RATIO 01/07/2015 Unknow n LIPID GROUP 12032 NON-HDL CH 189 MG/DL 01/07/2015 Unknow n GFR CALC 0599789 GFR AA >60 ML/MIN 01/07/2015 Unknown GFR CALC 0656331 GFR NON-AA >60 ML/MIN 01/07/2015 Unknown PSA EQUIMOLAR JONATAN 00799 PSA EQ 2.18 NG/ML 5 Unknown FREE T4 53314 FREE T4 1.04 NG/DL 01/07/2015 Unknown GFR CALC 9286299 GFR AA >60 ML/MIN 12/11/2013 Unknown GFR CALC 4311405 GFR NON-AA >60 ML/MIN 12/11/2013 Unknown LIPID GROUP 94145 HDL TEST 54 MG/DL 12/11/2013 Unknown LIPID GROUP 54151 TRIG 81 MG/DL 12/11/2013 Unknown LIPID GROUP 03683 TEST LDL 185 MG/DL 12/11/2013 Unknown LIPID GROUP 46766 CHOL 255 MG/DL 12/11/2013 Unknown LIPID GROUP 22468 RCHOL/HDL 4.72 RATIO 12/11/2013 Unknow n LIPID GROUP 56147 NON-HDL CH 201 MG/DL 12/11/2013 Unknow n URIC ACID 83852 URIC ACID 7.1 MG/DL 12/11/2013 Unknown PSA EQUIMOLAR JONATAN 56203 PSA EQ 3.80 NG/ML 4 Unknown COMPLETE BLOOD COUNT 3767919 WBC 5.9 10e9/L 12/12/19 14 Unknown COMPLETE BLOOD COUNT 8838273 RBC 4.40 10e12/L 2013 Unknown COMPLETE BLOOD COUNT 3200048 HGB 14.5 g/dL 4 Unknown COMPLETE BLOOD COUNT 5172327 HCT DET 43.6 % 4 Unknown COMPLETE BLOOD COUNT 7805053 MCV 99.1 fL 4 Unknown COMPLETE BLOOD COUNT 0453277 MCH 33.0 pg 4 Unknown COMPLETE BLOOD COUNT 5351054 MCHC 33.3 g/dL 4 Unknown COMPLETE BLOOD COUNT 6004540 PLT 289 10e9/L 12/12/19 14 Unknown COMPLETE BLOOD COUNT 2549509 MPV 10.2 fL 4 Unknown COMPLETE BLOOD COUNT 9174021 VERONIQUE % 47.9 % 4 Unknown COMPLETE BLOOD COUNT 0169339 LY % 40.6 % 4 Unknown COMPLETE BLOOD COUNT 2542402 MON % 8.8 % 4 Unknown COMPLETE BLOOD COUNT 9462364 EOS % 2.2 % 4 Unknown COMPLETE BLOOD COUNT 3509965 BASO % 0.5 % 4 Unknown COMPLETE BLOOD COUNT 9093277 RDW 12.9 % 4 Unknown COMPLETE BLOOD COUNT 2550727 ABS VERONQIUE 2.83 10e9/L 014 Unknown COMPLETE BLOOD COUNT 4966722 ABS LYMPH 2.40 10e9/L 014 Unknown COMPLETE BLOOD COUNT 6926461 ABS MONO 0.52 10e9/L 014 Unknown COMPLETE BLOOD COUNT 7238621 ABS EOS 0.13 10e9/L 014 Unknown COMPLETE BLOOD COUNT 1175596 ABS BASO 0.03 10e9/L 014 Unknown COMPLETE BLOOD COUNT 7320309 RDW-SD 45.7 fL 4 Unknown THYROID STIMULATING HORMONE 63690 TSH 1.013 uIU/ML 12/11/2013 Unknown COMPREHENSIVE METABOLIC 58246 AST 20 U/L 2013 Unknown COMPREHENSIVE METABOLIC 63740 ALT 16 IU/L 2013 Unknown COMPREHENSIVE METABOLIC 14359 BUN 17 MG/DL 2013 Unknown COMPREHENSIVE METABOLIC 15635 ALBUMIN 4.6 GM/DL 2013 Unknown COMPREHENSIVE METABOLIC 22295 CHLORIDE 107 MMOL/L 12/11 Unknown COMPREHENSIVE METABOLIC 66248 BILI TOT 0.7 MG/DL 2013 Unknown COMPREHENSIVE METABOLIC 46661 ALK PHOS 53 U/L 2013 Unknown COMPREHENSIVE METABOLIC 37665 SODIUM 140 MMOL/L 12/11 Unknown COMPREHENSIVE METABOLIC 99075 CREATININE 0.84 MG/DL 06/2013 Unknown COMPREHENSIVE METABOLIC 70263 CALCIUM 9.7 MG/DL 2013 Unknown COMPREHENSIVE METABOLIC 86685 POTASSIUM 4.6 MMOL/L 12/11 Unknown COMPREHENSIVE METABOLIC 56445 PROT TOT 6.9 GM/DL 2013 Unknown COMPREHENSIVE METABOLIC 20789 Glucose 97 MG/DL 2013 Unknown COMPREHENSIVE METABOLIC 91368 BICARB 25 MMOL/L 2013 Unknown COMPREHENSIVE METABOLIC 24852 ANION GAP 8 MEQ/L 2013 Unknown FREE T4 08257 FREE T4 1.11 NG/DL 12/11/2013 Unknown ASSAY OF CREATININE 25863 CREATININE 0.98 MG/DL 09/15/19 12 Unknown URIC ACID 52015 URIC ACID 4.9 MG/DL 09/15/2011 Unknown GFR CALC 6409397 GFR AA >60 ML/MIN 09/15/2011 Unknown GFR CALC 3025384 GFR NON-AA >60 ML/MIN 09/15/2011 Unknown THYROID STIMULATING HORMONE 62874 TSH 1.687 uIU/ML 08/01/2011 Unknown FREE T4 52092 FREE T4 0.96 NG/DL 08/01/2011 Unknown SJOGRENS 5305565 SJOGRN A <20 EU/ML 08/01/2011 Unknown SJOGRENS 1534370 SJOGRN B <20 EU/ML 08/01/2011 Unknown SJOGRENS 6214307 NONHIS INT SEE BELO 08/01/2011 Unknown THYRO PERX 1536932 THYRO PERX 175.34 UNITS 07/30/2011 Unkn own DNA AB 8742135 DNA AB 32 IU/ML 07/29/2011 Unknown TITER WENDI 3171316 TITR WENDI 1:160 07/29/2011 Unknown TITER WENDI 6214977 PATTERN NUCLEOLR 07/29/2011 Unknown ANTINUCLEAR ANTIBODY SCREEN 34874 WENDI SCR POSITIVE Unknown COMPREHENSIVE METABOLIC 62547 AST 23 U/L 2011 Unknown COMPREHENSIVE METABOLIC 90708 ALT 26 IU/L 2011 Unknown COMPREHENSIVE METABOLIC 99122 BUN 18 MG/DL 2011 Unknown COMPREHENSIVE METABOLIC 40481 ALBUMIN 4.6 GM/DL 2011 Unknown COMPREHENSIVE METABOLIC 74019 CHLORIDE 105 MMOL/L 07/27 Unknown COMPREHENSIVE METABOLIC 73758 BILI TOT 0.5 MG/DL 2011 Unknown COMPREHENSIVE METABOLIC 24902 ALK PHOS 63 U/L 2011 Unknown COMPREHENSIVE METABOLIC 76889 SODIUM 138 MMOL/L 07/27 Unknown COMPREHENSIVE METABOLIC 45831 CREATININE 0.92 MG/DL 07/09 Unknown COMPREHENSIVE METABOLIC 46265 CALCIUM 9.4 MG/DL 2011 Unknown COMPREHENSIVE METABOLIC 59659 POTASSIUM 3.9 MMOL/L 07/27 Unknown COMPREHENSIVE METABOLIC 63763 PROT TOT 6.7 GM/DL 2011 Unknown COMPREHENSIVE METABOLIC 30615 Glucose 101 MG/DL 2011 Unknown COMPREHENSIVE METABOLIC 20703 BICARB 24 MMOL/L 2011 Unknown COMPREHENSIVE METABOLIC 37386 ANION GAP 9 MEQ/L 2011 Unknown GFR CALC 0336303 GFR AA >60 ML/MIN 07/28/2011 Unknown GFR CALC 3237730 GFR NON-AA >60 ML/MIN 07/28/2011 Unknown ERYTHROCYTE SEDIMENTATION RATE 42159 ESR 2 MM/HR 07/28/2011 Unknown URIC ACID 96139 URIC ACID 5.8 MG/DL 07/28/2011 Unknown C-REACTIVE PROTEIN (CRP) QUANT 10424 CRP 0.2 MG/DL 07/28/2011 Unknown TITER WENDI 6315011 TITR WENDI 1:160 05/26/2011 Unknown TITER WENDI 7253007 PATTERN NUCLEOLR 05/26/2011 Unknown RA FACTOR 32563 RA FACTOR <20.0 IU/ML 05/26/2011 Unknown ANTINUCLEAR ANTIBODY SCREEN 81229 WENDI SCR POSITIVE Unknown URIC ACID 79273 URIC ACID 8.7 MG/DL 05/25/2011 Unknown PSA EQUIMOLAR JONATAN 77942 PSA EQ 2.79 NG/ML 2 Unknown LIPID GROUP 09150 HDL TEST 47 MG/DL 05/25/2011 Unknown LIPID GROUP 67237 TRIG 198 MG/DL 05/25/2011 Unknown LIPID GROUP 59859 TEST LDL 180 MG/DL 05/25/2011 Unknown LIPID GROUP 13769 CHOL 267 MG/DL 05/25/2011 Unknown LIPID GROUP 57901 RCHOL/HDL 5.68 RATIO 05/25/2011 Unknow n COMPREHENSIVE METABOLIC 40930 AST 21 U/L 2011 Unknown COMPREHENSIVE METABOLIC 71312 ALT 21 IU/L 2011 Unknown COMPREHENSIVE METABOLIC 37501 BUN 16 MG/DL 2011 Unknown COMPREHENSIVE METABOLIC 50502 ALBUMIN 4.4 GM/DL 2011 Unknown COMPREHENSIVE METABOLIC 76126 CHLORIDE 105 MMOL/L 05/25 Unknown COMPREHENSIVE METABOLIC 35150 BILI TOT 0.7 MG/DL 2011 Unknown COMPREHENSIVE METABOLIC 20612 ALK PHOS 60 U/L 2011 Unknown COMPREHENSIVE METABOLIC 89866 SODIUM 139 MMOL/L 05/25 Unknown COMPREHENSIVE METABOLIC 78993 CREATININE 0.92 MG/DL 05/11 Unknown COMPREHENSIVE METABOLIC 10146 CALCIUM 9.4 MG/DL 2011 Unknown COMPREHENSIVE METABOLIC 18709 POTASSIUM 4.1 MMOL/L 05/25 Unknown COMPREHENSIVE METABOLIC 42298 PROT TOT 7.0 GM/DL 2011 Unknown COMPREHENSIVE METABOLIC 38464 Glucose 108 MG/DL 2011 Unknown COMPREHENSIVE METABOLIC 77410 BICARB 25 MMOL/L 2011 Unknown COMPREHENSIVE METABOLIC 35685 ANION GAP 9 MEQ/L 2011 Unknown GFR CALC [id number] GFR AA >60 ML/MIN 05/25/2011 Unknown GFR CALC [id number] GFR NON-AA >60 ML/MIN 05/25/2011 Unknown COMPLETE BLOOD COUNT 94321 WBC 5.6 10e9/L 05/25/19 12 Unknown COMPLETE BLOOD COUNT 52533 RBC 5.01 10e12/L 2011 Unknown COMPLETE BLOOD COUNT 57673 HGB 15.8 g/dL 2 Unknown COMPLETE BLOOD COUNT 19237 HCT DET 46.1 % 2 Unknown COMPLETE BLOOD COUNT 61075 MCV 92.0 fL 2 Unknown COMPLETE BLOOD COUNT 99922 MCH 31.5 pg 2 Unknown COMPLETE BLOOD COUNT 72760 MCHC 34.3 g/dL 2 Unknown COMPLETE BLOOD COUNT 15364 PLT 246 10e9/L 05/25/19 12 Unknown COMPLETE BLOOD COUNT 64065 MPV 10.3 fL 2 Unknown COMPLETE BLOOD COUNT 38000 VERONQIUE % 47.1 % 2 Unknown COMPLETE BLOOD COUNT 85759 LY % 41.0 % 2 Unknown COMPLETE BLOOD COUNT 57585 MON % 8.9 % 2 Unknown COMPLETE BLOOD COUNT 82107 EOS % 2.5 % 2 Unknown COMPLETE BLOOD COUNT 08653 BASO % 0.5 % 2 Unknown COMPLETE BLOOD COUNT 88632 RDW 12.7 % 2 Unknown COMPLETE BLOOD COUNT 17175 ABS VERONIQUE 2.64 10e9/L 012 Unknown COMPLETE BLOOD COUNT 09206 ABS LYMPH 2.30 10e9/L 012 Unknown COMPLETE BLOOD COUNT 42566 ABS MONO 0.50 10e9/L 012 Unknown COMPLETE BLOOD COUNT 34323 ABS EOS 0.14 10e9/L 012 Unknown COMPLETE BLOOD COUNT 26809 ABS BASO 0.03 10e9/L 012 Unknown COMPLETE BLOOD COUNT 47671 RDW-SD 41.3 fL 2 Unknown COMPREHENSIVE METABOLIC 62373 AST 18 U/L 2010 Unknown COMPREHENSIVE METABOLIC 37469 ALT 14 IU/L 2010 Unknown COMPREHENSIVE METABOLIC 36806 BUN 12 MG/DL 2010 Unknown COMPREHENSIVE METABOLIC 38673 ALBUMIN 4.6 GM/DL 2010 Unknown COMPREHENSIVE METABOLIC 56348 CHLORIDE 102 MMOL/L 02/01 Unknown COMPREHENSIVE METABOLIC 84415 BILI TOT 0.6 MG/DL 2010 Unknown COMPREHENSIVE METABOLIC 21580 ALK PHOS 66 U/L 2010 Unknown COMPREHENSIVE METABOLIC 60254 SODIUM 139 MMOL/L 02/01 Unknown COMPREHENSIVE METABOLIC 89208 CREATININE 0.92 MG/DL 01/09 Unknown COMPREHENSIVE METABOLIC 03244 CALCIUM 9.8 MG/DL 2010 Unknown COMPREHENSIVE METABOLIC 32743 POTASSIUM 4.1 MMOL/L 02/01 Unknown COMPREHENSIVE METABOLIC 55889 PROT TOT 7.0 GM/DL 2010 Unknown COMPREHENSIVE METABOLIC 85109 Glucose 101 MG/DL 2010 Unknown COMPREHENSIVE METABOLIC 76313 BICARB 25 MMOL/L 2010 Unknown COMPREHENSIVE METABOLIC 46704 ANION GAP 12 MEQ/L 2010 Unknown GFR CALC [id number] GFR AA >60 ML/MIN 02/01/2011 Unknown GFR CALC [id number] GFR NON-AA >60 ML/MIN 02/01/2011 Unknown LIPID GROUP 91366 HDL TEST 44 MG/DL 02/01/2011 Unknown LIPID GROUP 26151 TRIG 157 MG/DL 02/01/2011 Unknown LIPID GROUP 09032 TEST LDL 193 MG/DL 02/01/2011 Unknown LIPID GROUP 77366 CHOL 268 MG/DL 02/01/2011 Unknown LIPID GROUP 80953 RCHOL/HDL 6.09 RATIO 02/01/2011 Unknow n FREE T4 57620 FREE T4 1.04 NG/DL 02/01/2011 Unknown COMPLETE BLOOD COUNT 03626 WBC 6.4 10e9/L 02/02/20 11 Unknown COMPLETE BLOOD COUNT 38017 RBC 4.56 10e12/L 2010 Unknown COMPLETE BLOOD COUNT 76625 HGB 14.4 g/dL 1 Unknown COMPLETE BLOOD COUNT 61707 HCT DET 43.0 % 1 Unknown COMPLETE BLOOD COUNT 78276 MCV 94.3 fL 1 Unknown COMPLETE BLOOD COUNT 89787 MCH 31.6 pg 1 Unknown COMPLETE BLOOD COUNT 50746 MCHC 33.5 g/dL 1 Unknown COMPLETE BLOOD COUNT 63162 PLT 300 10e9/L 02/02/20 11 Unknown COMPLETE BLOOD COUNT 41019 MPV 9.9 fL 1 Unknown COMPLETE BLOOD COUNT 57850 VERONIQUE % 38.5 % 1 Unknown COMPLETE BLOOD COUNT 56759 LY % 49.1 % 1 Unknown COMPLETE BLOOD COUNT 49967 MON % 10.1 % 1 Unknown COMPLETE BLOOD COUNT 52113 EOS % 1.7 % 1 Unknown COMPLETE BLOOD COUNT 03779 BASO % 0.6 % 1 Unknown COMPLETE BLOOD COUNT 05487 RDW 15.1 % 1 Unknown COMPLETE BLOOD COUNT 08167 ABS VERONIQUE 2.46 10e9/L 011 Unknown COMPLETE BLOOD COUNT 17294 ABS LYMPH 3.14 10e9/L 011 Unknown COMPLETE BLOOD COUNT 53450 ABS MONO 0.65 10e9/L 011 Unknown COMPLETE BLOOD COUNT 11985 ABS EOS 0.11 10e9/L 011 Unknown COMPLETE BLOOD COUNT 54239 ABS BASO 0.04 10e9/L 011 Unknown COMPLETE BLOOD COUNT 09590 RDW-SD 50.6 fL 1 Unknown THYROID STIMULATING HORMONE 50747 TSH 1.128 uIU/ML 02/01/2011 Unknown PSA EQUIMOLAR JONATAN 58237 PSA EQ 3.83 NG/ML 1 Unknown VCA AB G/M [id number] EBV G VCA 3.34 12/03/2010 Unknown VCA AB G/M 9766334 EBV M VCA 0.12 12/03/2010 Unknown EB GARY AG [id number] EB GARY AG 0.47 12/03/2010 Unknown EB NUCL AB [id number] EB NUCL AB 3.72 12/03/2010 Unknown COMPLETE BLOOD COUNT 31900 WBC 8.0 10e9/L 12/03/19 11 Unknown COMPLETE BLOOD COUNT 21294 RBC 4.93 10e12/L 2010 Unknown COMPLETE BLOOD COUNT 32393 HGB 15.7 g/dL 1 Unknown COMPLETE BLOOD COUNT 84069 HCT DET 45.4 % 1 Unknown COMPLETE BLOOD COUNT 89376 MCV 92.1 fL 1 Unknown COMPLETE BLOOD COUNT 50091 MCH 31.8 pg 1 Unknown COMPLETE BLOOD COUNT 15245 MCHC 34.6 g/dL 1 Unknown COMPLETE BLOOD COUNT 16504 PLT 248 10e9/L 12/03/19 11 Unknown COMPLETE BLOOD COUNT 12876 MPV 10.4 fL 1 Unknown COMPLETE BLOOD COUNT 73151 VERONIQUE % 74.0 % 1 Unknown COMPLETE BLOOD COUNT 32957 LY % 19.6 % 1 Unknown COMPLETE BLOOD COUNT 95424 MON % 5.2 % 1 Unknown COMPLETE BLOOD COUNT 13066 EOS % 1.1 % 1 Unknown COMPLETE BLOOD COUNT 41798 BASO % 0.1 % 1 Unknown COMPLETE BLOOD COUNT 98602 RDW 12.5 % 1 Unknown COMPLETE BLOOD COUNT 73552 ABS VERONIQUE 5.92 10e9/L 011 Unknown COMPLETE BLOOD COUNT 98907 ABS LYMPH 1.57 10e9/L 011 Unknown COMPLETE BLOOD COUNT 31532 ABS MONO 0.42 10e9/L 011 Unknown COMPLETE BLOOD COUNT 58407 ABS EOS 0.09 10e9/L 011 Unknown COMPLETE BLOOD COUNT 10162 ABS BASO 0.01 10e9/L 011 Unknown COMPLETE BLOOD COUNT 86570 RDW-SD 41.1 fL 1 Unknown URIC ACID 36448 URIC ACID 9.3 MG/DL 12/02/2010 Unknown Procedures Procedure Codes Date DEXAMETHASONE SODIUM PHOS CPT-4: J1100 05/31/2019 THER/PROPH/DIAG INJ SC/IM CPT-4: 43613 05/31/2019 THER/PROPH/DIAG INJ SC/IM CPT-4: 98913 05/17/2019 TRIAMCINOLONE ACET INJ NOS CPT-4: J3301 05/17/2019 DRAINAGE OF SKIN ABSCESS CPT-4: 21694 01/23/2019 AEROBIC WOUND CULTURE & STN CPT-4: 18679 01/23/2019 ROUTINE VENIPUNCTURE CPT-4: 38583 03/29/2017 ASSAY THYROID STIM HORMONE CPT-4: 01170 03/29/2017 ASSAY OF FREE THYROXINE CPT-4: 34166 03/29/2017 COMPREHEN METABOLIC PANEL CPT-4: 90664 03/29/2017 COMPLETE CBC W/AUTO DIFF WBC CPT-4: 98694 03/29/2017 LIPID PANEL CPT-4: 54012 03/29/2017 ASSAY OF BLOOD/URIC ACID CPT-4: 48522 03/29/2017 RBC SED RATE AUTOMATED CPT-4: 84867 03/29/2017 ROUTINE VENIPUNCTURE CPT-4: 77736 03/15/2017 ACUTE HEPATITIS PANEL CPT-4: 71902 03/15/2017 HIV-1/HIV-2 1 RESULT ANTBDY CPT-4: 52144 03/15/2017 EXC TR-EXT B9+SHASHA 0.5 CM< CPT-4: 17420 03/15/2017 EXC TR-EXT B9+SHASHA 1.1-2 CM CPT-4: 24872 03/15/2017 URINALYSIS NONAUTO W/O SCOPE CPT-4: 94039 01/07/2015 URINE CULTURE/ COLONY COUNT CPT-4: 93767 01/07/2015 ROUTINE VENIPUNCTURE CPT-4: 47235 01/07/2015 ASSAY OF FREE THYROXINE CPT-4: 65581 01/07/2015 ASSAY THYROID STIM HORMONE CPT-4: 64683 01/07/2015 COMPREHEN METABOLIC PANEL CPT-4: 16974 01/07/2015 COMPLETE CBC W/AUTO DIFF WBC CPT-4: 68756 01/07/2015 LIPID PANEL CPT-4: 84775 01/07/2015 ASSAY OF PSA TOTAL CPT-4: 20034 01/07/2015 ASSAY OF BLOOD/URIC ACID CPT-4: 88811 01/07/2015 ROUTINE VENIPUNCTURE CPT-4: 69619 12/11/2013 ASSAY OF FREE THYROXINE CPT-4: 50361 12/11/2013 ASSAY THYROID STIM HORMONE CPT-4: 09990 12/11/2013 COMPREHEN METABOLIC PANEL CPT-4: 24284 12/11/2013 COMPLETE CBC W/AUTO DIFF WBC CPT-4: 75492 12/11/2013 LIPID PANEL CPT-4: 97719 12/11/2013 ASSAY OF BLOOD/URIC ACID CPT-4: 33930 12/11/2013 ASSAY OF PSA TOTAL CPT-4: 09979 12/11/2013 URINE CULTURE/ COLONY COUNT CPT-4: 88170 01/02/2013 AEROBIC WOUND CULTURE & STN CPT-4: 41202 10/10/2011 DRAINAGE OF SKIN ABSCESS CPT-4: 26633 10/10/2011 ASSAY OF CREATININE CPT-4: 58157 09/15/2011 ASSAY OF BLOOD/URIC ACID CPT-4: 54060 09/15/2011 ROUTINE VENIPUNCTURE CPT-4: 51212 07/28/2011 ANTINUCLEAR ANTIBODIES CPT-4: 84372 07/28/2011 RBC SED RATE AUTOMATED CPT-4: 61082 07/28/2011 ASSAY OF BLOOD/URIC ACID CPT-4: 37573 07/28/2011 COMPREHEN METABOLIC PANEL CPT-4: 77399 07/28/2011 C-REACTIVE PROTEIN CPT-4: 76688 07/28/2011 THYRO PERX CPT-4: 3069652 07/28/2011 DNA AB CPT-4: 1038356 07/28/2011 SJOGRENS CPT-4: 0205094 07/28/2011 ASSAY OF FREE THYROXINE CPT-4: 47407 07/28/2011 ASSAY THYROID STIM HORMONE CPT-4: 26327 07/28/2011 ROUTINE VENIPUNCTURE CPT-4: 47805 05/25/2011 COMPREHEN METABOLIC PANEL CPT-4: 70614 05/25/2011 COMPLETE CBC W/AUTO DIFF WBC CPT-4: 02439 05/25/2011 ANTINUCLEAR ANTIBODIES CPT-4: 76668 05/25/2011 RHEUMATOID FACTOR QUANT CPT-4: 26302 05/25/2011 ASSAY OF PSA TOTAL CPT-4: 79385 05/25/2011 ASSAY OF BLOOD/URIC ACID CPT-4: 58856 05/25/2011 LIPID PANEL CPT-4: 38491 05/25/2011 ROUTINE VENIPUNCTURE CPT-4: 37553 02/01/2011 ASSAY OF FREE THYROXINE CPT-4: 94574 02/01/2011 ASSAY THYROID STIM HORMONE CPT-4: 43549 02/01/2011 COMPREHEN METABOLIC PANEL CPT-4: 21187 02/01/2011 COMPLETE CBC W/AUTO DIFF WBC CPT-4: 13129 02/01/2011 LIPID PANEL CPT-4: 96139 02/01/2011 ASSAY OF PSA TOTAL CPT-4: 71032 02/01/2011 ROUTINE VENIPUNCTURE CPT-4: 96324 12/02/2010 ASSAY OF BLOOD/URIC ACID CPT-4: 96592 12/02/2010 EB VIRUS VCA G/M + EBNA + EA CPT-4: 11870|89147 x 2|82464 COMPLETE CBC W/AUTO DIFF WBC CPT-4: 26990 12/02/2010 COMPREHEN METABOLIC PANEL CPT-4: 48212 09/14/2009 ASSAY OF BLOOD/URIC ACID CPT-4: 03986 09/14/2009 ROUTINE VENIPUNCTURE CPT-4: 59273 09/14/2009 URINALYSIS NONAUTO W/O SCOPE CPT-4: 33201 09/01/2009 Vital Signs Date Vital 05/31/2019 Blood [...] 1: 118/64 Code: 8480-6 BMI: 29.7 Code: 33704-1 Heart Rate 1: 100 bpm Height: 5'6" Respiratory Rate: 22 bpm SpO2: 95% Tempera ture: 36.7 (C) / 98.0 (F) Weight: 187 lbs 02/27/2017 Blood Pressure 1: 132/76 Code: 8480-6 BMI: 30.8 Code: 80077-9 Heart Rate 1: 96 bpm Height: 5'6" Respiratory Rate: 22 bpm SpO2: 98% Tempera ture: 36.6 (C) / 97.8 (F) Weight: 194 lbs 03/31/2015 Blood Pressure 1: 128/90 Code: 8480-6 Heart Rate 1: 88 bpm Respiratory Rate: 20 bpm Temperature: 36.9 (C) / 98.4 (F) Weight: 192 lbs 01/07/2015 Blood Pressure 1: 132/80 Code: 8480-6 BMI: 30.2 Code: 80680-9 Heart Rate 1: 78 bpm Height: 5'6" Respiratory Rate: 22 bpm Temperature: 36 .7 (C) / 98.1 (F) Weight: 190 lbs 04/15/2014 Blood Pressure 1: 136/88 Code: 8480-6 BMI: 31.0 Code: 15909-5 Heart Rate 1: 84 bpm Height: 5'6" Respiratory Rate: 20 bpm Temperature: 36 .1 (C) / 97.0 (F) Weight: 192 lbs 12/10/2013 Blood Pressure 1: 142/90 Code: 8480-6 BMI: 29.1 Code: 71468-8 Heart Rate 1: 72 bpm Height: 5'7" Respiratory Rate: 20 bpm Temperature: 36 .6 (C) / 97.8 (F) Weight: 186 lbs 05/02/2013 Blood Pressure 1: 146/96 Code: 8480-6 BMI: 30.5 Code: 67359-2 Heart Rate 1: 88 bpm Height: 5'7" Respiratory Rate: 20 bpm Temperature: 37 .0 (C) / 98.6 (F) Weight: 195 lbs 01/02/2013 Blood Pressure 1: 132/84 Code: 8480-6 BMI: 30.2 Code: 18398-4 Heart Rate 1: 80 bpm Height: 5'7" Respiratory Rate: 20 bpm Temperature: 36 .9 (C) / 98.4 (F) Weight: 193 lbs 10/10/2011 Blood Pressure 1: 122/68 Code: 8480-6 BMI: 35.7 Code: 48061-0 Heart Rate 1: 84 bpm Height: 5'2" Temperature: 36.9 (C) / 98.5 (F) Weight: 195 lbs 08/12/2011 Blood Pressure 1: 110/80 Code: 8480-6 BMI: 36.9 Code: 69650-3 Heart Rate 1: 80 bpm Height: 5'2" Temperature: 36.4 (C) / 97.6 (F) Weight: 202 lbs 08/04/2011 Blood Pressure 1: 126/80 Code: 8480-6 BMI: 37.9 Code: 52055-6 Heart Rate 1: 76 bpm Height: 5'2" Respiratory Rate: 20 bpm Temperature: 37 .0 (C) / 98.6 (F) Weight: 207 lbs 05/24/2011 Blood Pressure 1: 122/82 Code: 8480-6 BMI: 37.7 Code: 69745-5 Heart Rate 1: 68 bpm Height: 5'2" Temperature: 36.7 (C) / 98.1 (F) Weight: 206 lbs 04/15/2011 Blood Pressure 1: 128/82 Code: 8480-6 BMI: 37.1 Code: 99534-4 Heart Rate 1: 68 bpm Height: 5'2" [...] 1: 106/62 Code: 8480-6 BMI: 36.8 Code: 21747-7 Heart Rate 1: 90 bpm Height: 5'2" SpO2: 94% Temperature: 36.4 (C) / 97.6 (F) Weight: 201 lbs 12/02/2010 Blood Pressure 1: 142/90 Code: 8480-6 BMI: 36.8 Code: 99437-2 Heart Rate 1: 96 bpm Height: 5'2" [...] success Encounters Encounter Performer Location Codes Date ([id number]) OFFICE/OUTPATIENT VISIT EST Diagnosis: Acute contact dermatitis[ICD10: L25.9] Azragamal BYRNE DO [facility] CPT-4: 77104 05/31/2019 ([id number]) OFFICE/OUTPATIENT VISIT EST Diagnosis: Acute contact dermatitis[ICD10: L25.9] Diagnosis: Acute sinusitis[ICD10: J01.90] [facility]: 36239 05/17/2019 ([id number]) OFFICE/OUTPATIENT VISIT EST Diagnosis: Acute gastritis without bleeding[ICD10: K29.00] Diagnosis: Essential (primary) hypertension[ICD10: I10] Diagnosis: Hyperlipidemia, unspecified[ICD10: E78.5] Azra BYRNE [facility] CPT-4: 56297 10/31/2018 ([id number]) OFFICE/OUTPATIENT VISIT EST Diagnosis: Acute gastritis without bleeding[ICD10: K29.00] Azra BYRNE [facility] CPT-4: 94191 01/18/2018 ([id number]) OFFICE/OUTPATIENT VISIT EST Diagnosis: Hyperlipidemia, unspecified[ICD10: E78.5] Diagnosis: Essential (primary) hypertension[ICD10: I10] Diagnosis: Weakness[ICD10: R53.1] Diagnosis: Sebaceous cyst[ICD10: L72.3] Diagnosis: Idiopathic gout, unspecified site[ICD10: M10.00] [facility]: 12775 03/29/2017 OFFICE/OUTPATIENT VISIT EST Diagnosis: Pain in right knee[ICD10: M25.561] [facility]: 13880 03/13/2017 OFFICE/OUTPATIENT VISIT EST Diagnosis: Pain in right leg[ICD10: M79.604] Diagnosis: Sebaceous cyst[ICD10: L72.3] Azra BYRNE [facility] CPT-4: 83249 02/27/2017 OFFICE/OUTPATIENT VISIT EST Diagnosis: Local infection of the skin and subcutaneous tissue, unspecified[ICD10: L08.9] Diagnosis: Essential (primary) hypertension[ICD10: I10] Diagnosis: Hyperlipidemia, unspecified[ICD10: E78.5] Dagmar Ahmadi SYLVIE COBB [employer] [facility] CPT-4: 08364 03/31/2015 ([id number]) PREV VISIT EST AGE 40-64 Diagnosis: History of chest pain[ICD9: V13.89] Diagnosis: Right flank pain[ICD9: 789.09] Diagnosis: ROUTINE MEDICAL EXAM[ICD9: V70.0] Diagnosis: HYPERTENSION[ICD9: 401.9] Diagnosis: HYPERLIPIDEMIA NEC/NOS[ICD9: 272.4] Diagnosis: Colon polyps[ICD9: 211.3] Diagnosis: HEMATURIA NOS[ICD9: 599.70] Dagmar ZhaoNoemi SYLVIE SammiFrancisco AGAPITO [employer] [facility] CPT-4: 79561 01/07/2015 OFFICE/OUTPATIENT VISIT EST Diagnosis: COUGH[ICD9: 786.2] Diagnosis: Rectal itching[ICD9: 698.0] Dagmar PavelNoemi SAINZ SammiFrancisco YVANSCARLETTDELMI [facility] CPT-4: 03257 04/15/2014 ([id number]) OFFICE/OUTPATIENT VISIT EST Diagnosis: ROUTINE MEDICAL EXAM[ICD9: V70.0] Diagnosis: GOUT[ICD9: 274.9] Diagnosis: HYPERLIPIDEMIA NEC/NOS[ICD9: 272.4] Diagnosis: HYPERTENSION[ICD9: 401.9] Sylvie Yvanjean claude SAINZ SammiFrancisco YVAN SILVERIO [facility] CPT-4: 35817 12/11/2013 ([id number]) OFFICE/OUTPATIENT VISIT EST Diagnosis: Shingles[ICD9: 053.9] Sylvie Yvanjean claude Phillips YVANSCARLETTDELMI [facility] CPT-4: 81158 12/10/2013 ([id number]) OFFICE/OUTPATIENT VISIT EST Diagnosis: HYPERTENSION[ICD9: 401.9] Diagnosis: Colon polyps[ICD9: 211.3] Diagnosis: Stress reaction[ICD9: 308.9] Sylvie Yvanjean claude SAINZ SammiFrancisco AGAPITO [employer] [facility] CPT-4: 38172 05/02/2013 ([id number]) OFFICE/OUTPATIENT VISIT EST Diagnosis: URINARY TRACT INFECTION[ICD9: 599.0] Sylvie Phillips [facility]: 65669 01/02/2013 OFFICE/OUTPATIENT VISIT EST Diagnosis: CELLULITIS OF TRUNK[ICD9: 682.2] Diagnosis: SPRAIN SHOULDER/ARM[ICD9: 840.9] Liza Phillips AGAPITO [facility] CPT-4: 82038 10/10/2011 ([id number]) OFFICE/OUTPATIENT VISIT EST Diagnosis: GOUT[ICD9: 274.9] Sylvie WILSONLINE SammiFrancisco AGAPITO [facility] CPT-4: 50425 09/15/2011 OFFICE/OUTPATIENT VISIT EST Diagnosis: DIARRHEA[ICD9: 787.91] Sylvie Yvanscarlettdelmi WILSONSYLVIE SammiFrancisco YVANSCARLETTMarvin Cagle [facility] CPT-4: 03267 08/12/2011 ([id number]) OFFICE/OUTPATIENT VISIT EST Diagnosis: GOUT[ICD9: 274.9] Diagnosis: Positive WENDI (antinuclear antibody)[ICD9: 795.79] Sylvie WILSONLINE SammiFrancisco AGAPITO [facility] CPT-4: 60688 08/04/2011 OFFICE/OUTPATIENT VISIT EST Diagnosis: Rash[ICD9: 782.1] Diagnosis: Joint pain[ICD9: 719.40] Diagnosis: Hyperlipidemia[ICD9: 272.4] Sylvie WILSONCHIQUITA Kulkarni RENDER [facility] CPT-4: 83803 05/24/2011 OFFICE/OUTPATIENT VISIT EST Diagnosis: PHARYNGITIS, ACUTE[ICD9: 462] Diagnosis: COUGH[ICD9: 786.2] Diagnosis: SINUSITIS, ACUTE[ICD9: 461.9] Sylvie WILSONLINE SammiFrancisco AGAPITO [facility] CPT-4: 96406 04/15/2011 OFFICE/OUTPATIENT VISIT EST Diagnosis: Clavicle fracture[ICD9: 810.00] Sylvie Yvanscarlettdelmi WILSONSYLVIE SammiFrancisco YVANJEAN CLAUDE [facility] CPT-4: 37338 01/13/2011 OFFICE/OUTPATIENT VISIT EST Diagnosis: Clavicle pain[ICD9: 719.41] Sylvie WILSONCHIQUITA Kulkarni RENDER [facility] CPT-4: 72875 12/23/2010 OFFICE/OUTPATIENT VISIT EST Diagnosis: Arm pain[ICD9: 729.5] Diagnosis: SPASM OF MUSCLE[ICD9: 728.85] Diagnosis: Neck pain[ICD9: 723.1] Sylvie Yvanjean claude Phillips YVANMARLIN Cagle [facility] CPT-4: 15106 12/15/2010 OFFICE/OUTPATIENT VISIT EST Diagnosis: HYPERTENSION[ICD9: 401.9] Diagnosis: PHARYNGITIS, ACUTE[ICD9: 462] Diagnosis: MALAISE AND FATIGUE[ICD9: 780.79] Diagnosis: GOUT[ICD9: 274.9] Sylvie CHAHAL CPT-4: 05582 12/02/2010 ([id number]) OFFICE/OUTPATIENT VISIT, EST Sylvie CHAHAL CPT-4: 75524 04/19/2010 ([id number]) OFFICE/OUTPATIENT VISIT, EST Sylvie CHAHAL CPT-4: 63508 04/14/2010 ([id number]) OFFICE/OUTPATIENT VISIT, NHAN CHAHAL CPT-4: 68438 09/01/2009 Plan of Care Planned Activity Notes [...] L25.9 05/31/2019 Patient Education: prednisone- [employer] Coupon [id number] https://www.[employer]/resources/getResource/61/ebe259es-8rg8-0c09-1x Completed 05/31/2019 Visit Diagnosis Plan: Acute contact dermatitis Discuss ion: Kenalog 40mg IM now Cover with [employer] Call in 1week on how doing Medrol Dose Pack ICD-9 : 692.9 ICD-10 : L25.9 05/17/2019 Appointment: Sylvie Byrne WPtel: [phone] [facility] ACUTE ILLNESS 05/17/2019 Patient Education: Medrol (Nicholas)- [employer] Coupon [phone] https://www.[employer]/resources/getResource/61/77nkij23-9791-9j01-1m Completed 05/17/2019 Visit Diagnosis Plan: Abscess of chest wall Discussion : patient has large amount of induration still noted despite recent drainage and antibiotics. dr. najera's office was called and they were able to see patient today. patient was sent over there for possible surgery. ICD-9 : 682.2 ICD-10 : L02.213 01/25/2019 Appointment: Azra Bradley [address] [place], [place] [address] FOLLOW UP 01/25/2019 Visit Diagnosis Plan: Abscess [...] ICD-10 : L02.213 01/23/2019 Appointment: Azra Bradley [address] [place], [place] [address] [facility]t [facility] FICE SURGERY 01/23/2019 Patient Education: clindamycin HCl- [employer] Coupon [id number] https://www.[employer]/samplemd/resources/getResource/61/x676f163-n27y-6xjb-05 Completed 01/23/2019 Appointment: Azra Bradley [address] [place], [place] [id number] CANCELED 01/16/2019 Visit Diagnosis Plan: Acute gastritis [...] ICD-10 : E78.5 10/31/2018 Appointment: Azra Bradley [address] [place], [place] [address] ACUTE ILLNESS 10/31/2018 Patient Education: High Blood [...] : K29.00 01/18/2018 Appointment: Azra Bradley [address] [facility] ACUTE ILLNESS 01/18/2018 Patient Education: Patient Medication Summary Completed 01/18/2018 Appointment: Sylvie Byrne WPtel: [facility] LAB 03/29/2017 Patient Education: Patient Medication [...] Bradley [address] [facility] OFFICE SURGERY 03/15/2017 Patient Education: Patient Medication [...] : M25.561 03/13/2017 [facility] [facility] 03/13/2017 Patient Education: Patient Medication Summary Completed 03/13/2017 Care Plan: X-RAY EXAM OF KNEE 1 OR 2 [place] : [address]-2 Pending 03/13/2017 Visit Diagnosis Plan: Pain in [...] ICD-10 : L72.3 02/27/2017 Appointment: Azra Bradley [address] [place] [address] ACUTE ILLNESS 02/27/2017 Patient Education: Patient Medication Summary Completed 02/27/2017 Appointment: Katerina Sousa WPtel: [phone] [place] [address] ACUTE ILLNESS 08/21/2015 Visit Plan: Has been off of Pravastatin. Will resume Pravastitin 20mg. and re- check labs in 3 months, Resume Lisinopril and Allopurinol Warm moist compresses to left chest lesion Complete doxycycline Return check after antibiotics completed if no improvement in lesion to left chest will refer for removal of nodular skin lesion upper right back. 03/31/2015 Appointment: Dagmar Ahmadi WPtel: [phone] [place], [place] [address] 03/30 Confirmed ~sl FOLLOW UP 03/31/2015 Patient Education: Patient Medication Summary Completed 03/31/2015 Visit Plan: CBC, CMP, TSH, Free T4, Lipi d Panel, Uric Acid, PSA, EKG Urine culture today Increase fluids to >120cc's daily. Notify if flank pain increases. Resume Lisinopril 20 mg PO daily Resume Allopurinol 100 mg Ciprofloxacin 500 mg PO bid Scheudule appt. for follow-up Colons[facility] - [place] 01/07/2015 Appointment: Dagmar Ahmadi WPtel: [phone] [phone] 01/06 appointment confirmed cn Annual Well Visit 01/07/2015 Patient Education: Patient Medication Summary Completed 01/07/2015 Patient Education: [facility] - [employer]aving [employer] - Lisinopril - 18-64 - Dynamic Portal ID Completed 01/07/2015 Appointment: Sylvie Byrne WPtel: [address] [place] [address] ACUTE ILLNESS 08/26/2014 Appointment: Dagmar Ahmadi WPtel: [address] [place] [address] ACUTE ILLNESS 04/15/2014 Patient Education: Patient Medication Summary Completed 04/15/2014 Appointment: Sylvie Byrne WPtel: [address] [place] [address] US LAB 12/11/2013 Patient Education: Patient Medication Summary Completed 12/11/2013 Visit Plan: Check CBC, CMP, TSH, Free T4 , Lipids, uric acid, PSA--pt will return in AM for fasting lab Finish acyclovir Discussed Zostavax down road 12/10/2013 Appointment: Sylvie Byrne WPtel: [address] [place] [address] 12/06 left message FOLLOW UP 12/10/2013 Patient Education: Patient Medication Summary Completed 12/10/2013 Visit Plan: Lisinopril 20mg daily Stress Reducers and trial of fluoxetine 10mg q am Proceed with colonoscopy Check fasting lab 05/02/2013 Appointment: Sylvie Byrne WPtel: [address] [place] [address] ACUTE ILLNESS 05/02/2013 Patient Education: Patient Medication Summary Completed 05/02/2013 Appointment: Sylvie Byrne WPtel: [address] [place] [address] ACUTE ILLNESS 01/02/2013 Patient Education: Patient Medication Summary Completed 01/02/2013 Appointment: Liza Ragsdale WPtel: [address] [place] [address] ACUTE ILLNESS 10/10/2011 Patient Education: Patient Medication Summary Completed 10/10/2011 Appointment: [facility]el[facility] [phone] [facility] [place] [facility] 09/15/2011 Patient Education: Patient Medication [...] weekend. 08/12/2011 Appointment: Liza Ragsdale WPtel: [address] [place] [address] ACUTE ILLNESS 08/12/2011 Patient Education: Patient Medication Summary Completed 08/12/2011 Visit Plan: Continue increased dose of a llopurinol and daily colcrys Recheck thyroid lab, uric acid and PSA in 3mos Will hold on NSAID at this time due to history of GERD 08/04/2011 Appointment: Sylvie Byrne WPtel: [address] [place], [place] [id number] FOLLOW UP 08/04/2011 Patient Education: Patient Medication Summary Completed 08/04/2011 Appointment: Sylvie Byrne WPtel: [address] [place], [place] [id number] [place] LAB 07/28/2011 Patient Education: Patient Medication Summary Completed 07/28/2011 Appointment: Sylvie Byrne WPtel: [address] [place], [place] [phone] [place] LAB 05/25/2011 Patient Education: Patient Medication [...] night. 05/24/2011 Appointment: Liza Ragsdale WPtel: [address] [place] [address] ACUTE ILLNESS 05/24/2011 Patient Education: Patient Medication Summary Completed 05/24/2011 Visit Plan: codeine/guif cough syrup and cefdinir are phoned to [facility]. Discussed fluids and rest. Pt. will notify if symptoms persist or worsen. 04/15/2011 Appointment: Liza Ragsdale WPtel: [address] [place] [address] ACUTE ILLNESS 04/15/2011 Patient Education: Patient Medication Summary Completed 04/15/2011 Appointment: Sylvie Byrne WPtel: [address] [place] [address] LAB 02/01/2011 Patient Education: Patient Medication Summary Completed 02/01/2011 Visit Plan: Repeat clavicle x-ray in 6wk s Check bone density 01/13/2011 Appointment: Sylvie Byrne WPtel: [address] [place] [address] FOLLOW UP 01/13/2011 Patient Education: Patient Medication Summary Completed 01/13/2011 Visit Plan: Check right clavicle and alda ulder x-ray Continue Vimovo and flexeril 12/23/2010 Appointment: Sylvie Byrne WPtel: [address] [place] [address] FOLLOW UP 12/23/2010 Patient Education: Patient Medication Summary Completed 12/23/2010 Appointment: Sylvie Byrne WPtel: [address] [place] [address] ER Follow UP 12/15/2010 Patient Education: Patient Medication Summary Completed 12/15/2010 Visit Plan: uric acid, CBC, EBV titer. F enu oil. Blood pressure re-check 140/92. Pt. to [...] BP check. 12/02/2010 Appointment: Liza Ragsdale WPtel: [address] [place], [place] [id number] ACUTE ILLNESS 12/02/2010 Patient Education: Patient Medication Summary Completed 12/02/2010 Care Plan: ASSAY OF BLOOD/URIC ACID Pendi ng 12/02/2010 Care Plan: VCA AB G/M Pending 2010 Care Plan: EB GARY AG Pending 2010 Care Plan: EB NUCL AB Pending 2010 Appointment: Sylvie Byrne WPtel: [address] [place] [address] [place] FOLLOW UP 11/18/2010 Visit Plan: benadryl 25 mg tab QHS. 12.5 mg tab every 8 hrs during the day. Pt. will notify if symptoms worsen. No facial edema present. 04/19/2010 Appointment: Liza Ragsdale WPtel: [address] [place] [address] FOLLOW UP 04/19/2010 Patient Education: Patient Medication [...] no improvement. 04/14/2010 Appointment: Liza Ragsdale WPtel: [address] [place], [place] [id number] ACUTE ILLNESS 04/14/2010 Patient Education: Patient Medication Summary Completed 04/14/2010 Appointment: Liza Ragsdale WPtel: [address] [place], [place] [id number] ACUTE ILLNESS 03/12/2010 Appointment: [facility] Byr[facility] [phone] [id number] [place] [facility] 09/14/2009 Patient Education: Patient Medication Summary Completed 09/14/2009 Appointment: [facility] Byrne [facility]el[facility] [phone] [id number] [facility] 09/01/2009 Patient Education: Patient Medication [...] 100 mg Ciprofloxacin 500 mg PO bid [facility] appt. for follow-up Colonscopy - Candido [...]
--- OUTSIDE RECORDS SUMMARY | 2019-10-17 10:37 | XMS REPORT | CCD ---
Author Author Renan Byrne D.O. Organization [facility] Address [address] [place] [address] Phone Care Team Providers Care Landing Man Name Role Phone Sylvie Byrne D.O., PP Unavailable CCM Unavailable Summary Purpose Interface Exchange Insurance Providers Payer name Policy type / Coverage type Covered libertarian ID Effective Begin Date Effective End Date WPS MEDICARE PART B [place] Medicare Part B [id number] Unknown [facility] Medicare Part B [id number] Unknown Family History Family History data not found Social History Social History Element Codes Description Effective Dates Tobacco history SNOMED CT: 903049565 Nonsmoker 12/02/2010 Allergies, Adverse Reactions, Alerts Substance [...] Start Date Stop Date Status Fill Instructions Medrol (Nicholas) 4 mg tablets in a dose pack RxNorm: 693592 6 Tablet(s) Oral QD --then as directed 05/17/2019 05/23/2019 Active Elimite 5 % topical cream RxNorm: 045002 Application To pical QPM from head to toe 05/17/2019 07/16/2019 Active Osteo Bi-Flex 250 mg-200 mg tablet RxNorm: 347412 2 Tablet(s) O ral QD 01/23/2019 No Stop Date Active clindamycin HCl 300 mg capsule RxNorm: 297210 2 Capsule (s) Oral three times a day 01/23/2019 01/30/2019 Inactive Flagyl 500 mg tablet RxNorm: 693084 1 Tablet(s) PO BID 10/31/2018 Inactive lisinopril 20 mg tablet RxNorm: 177887 1 Tablet(s) PO QD for bl ood pressure 09/13/2018 12/11/2018 Inactive allopurinol 100 mg tablet RxNorm: 029928 1 Tablet(s) PO QD 09/14/19 19 12/11/2018 Inactive Flagyl 500 mg tablet RxNorm: 135924 1 Tablet(s) PO BID 01/18/2018 Inactive Cipro 250 mg tablet RxNorm: 469731 1 Tablet(s) PO BID 01/18/201801/08 Inactive lisinopril 20 mg tablet RxNorm: 026971 1 Tablet(s) PO QD for bl ood pressure 11/06/2017 02/03/2018 Inactive allopurinol 100 mg tablet RxNorm: 989984 1 Tablet(s) PO QD 11/07/19 18 02/03/2018 Inactive allopurinol 100 mg tablet RxNorm: 329623 1 Tablet(s) PO QD 04/11/19 18 10/07/2017 Inactive lisinopril 20 mg tablet RxNorm: 338716 1 Tablet(s) PO QD for bl ood pressure 04/07/2017 11/05/2017 Inactive prednisone 20 mg tablet RxNorm: 326159 2 Tablet(s) PO QD 03/15/2017 1 05/18/2016 Inactive tramadol 50 mg tablet RxNorm: 404106 1-2 Tablet(s) PO TID as needed 03/13/2017 08/06/2017 Inactive Medrol (Nicholas) 4 mg tablets in a dose pack RxNorm: 044014 Tablet(s) PO As Directed 02/28/2017 08/01/2017 Inactive allopurinol 100 mg tablet RxNorm: 203637 1 Tablet(s) PO QD 04/11/19 17 04/11/2017 Inactive lisinopril 20 mg tablet RxNorm: 589904 1 Tablet(s) PO QD for bl ood pressure 04/11/2016 04/07/2017 Inactive pravastatin 20 mg tablet RxNorm: 406731 1 Tablet(s) PO QD 01/13/2016 02/26/2017 Inactive pravastatin 20 mg tablet RxNorm: 123868 TAKE 1 TABLET DAILY 016 01/13/2016 Inactive pravastatin 40 mg tablet RxNorm: 945974 1 Tablet(s) PO QD 03/31/2015 03/31/2015 Inactive pravastatin 20 mg tablet RxNorm: 178566 1 Tablet(s) PO QD 03/31/2015 06/28/2015 Inactive doxycycline hyclate 100 mg capsule RxNorm: 8140955 1 Capsule(s) PO BID 03/31/2015 04/09/2015 Inactive mupirocin 2 % topical ointment RxNorm: 484077 Apply TOP BID to affected lesions 03/31/2015 08/01/2017 Inactive pravastatin 40 mg tablet RxNorm: 758539 1 Tablet(s) PO QD 01/08/2015 03/30/2015 Inactive lisinopril 20 mg tablet RxNorm: 121901 1 Tablet(s) PO QD for bl ood pressure 01/07/2015 12/31/2015 Inactive allopurinol 100 mg tablet RxNorm: 020449 1 Tablet(s) PO QD 01/08/20 15 04/10/2016 Inactive ciprofloxacin 500 mg tablet RxNorm: 281509 1 Tablet(s) PO BID 01/0701/13/2015 Inactive doxycycline hyclate 100 mg capsule RxNorm: 9466654 1 Capsule(s) PO BID 04/15/2014 04/24/2014 Inactive fluoxetine 10 mg capsule RxNorm: 164932 1 Capsule(s) PO QAM 014 04/14/2014 Inactive lisinopril 20 mg tablet RxNorm: 652410 1 Tablet(s) PO QD for bl ood pressure 05/02/2013 04/26/2014 Inactive Cipro 500 mg tablet RxNorm: 647632 1 Tablet(s) PO BID 01/02/201312/10 Inactive Cipro 500 mg tablet RxNorm: 811966 1 Tablet(s) PO BID 01/02/201304/2012 Inactive doxycycline hyclate 100 mg Cap RxNorm: 397062 1 Capsule(s) PO BID 0 10/10/2011 10/19/2011 Inactive Culturelle 10 billion cell Cap RxNorm: 667379 1 Capsule(s) PO BID 0 08/12/2011 09/10/2011 Inactive Colcrys 0.6 mg Tab RxNorm: 883384 1 Tablet(s) PO BID 08/04/201111/30 Inactive allopurinol 100 mg Tab RxNorm: 233625 1 Tablet(s) PO BID 07/13/2011 0 08/03/2011 Inactive clotrimazole-betamethasone 1 %-0.05 % Topical Cream RxNorm: 525096 1 Application TOP BID 06/10/2011 06/23/2011 Inactive clotrimazole-betamethasone 1 %-0.05 % Topical Cream RxNorm: 916802 1 Application TOP BID 05/24/2011 06/06/2011 Inactive Colcrys 0.6 mg Tab RxNorm: 518144 1 Tablet(s) PO BID 05/24/201108/02 Inactive cefdinir 300 mg Cap RxNorm: 679399 1 Capsule(s) PO BID 04/15/2011 Inactive Daypro 600 mg Tab RxNorm: 775066 1 Tablet(s) PO BID 12/15/20102010 Inactive for pain Medrol (Nicholas) 4 mg Tabs in a Dose Pack RxNorm: 045138 Tablet(s) PO 0 12/09/2010 12/15/2010 Inactive as directed Colcrys 0.6 mg Tab RxNorm: 123380 1 Tablet(s) PO BID 12/06/201001/04 Inactive lisinopril-hydrochlorothiazide 20 mg-12.5 mg Tab RxNorm: 197 886 1 Tablet(s) PO QAM 12/02/2010 01/30/2011 Inactive ranitidine 150 mg tablet RxNorm: 4747168 1 Tablet(s) PO BID Pt will phone before filing this script. 04/14/2010 05/13/2010 Inactive allopurinol 100 mg Tab RxNorm: 219665 1 Tablet(s) PO BID 09/16/2009 0 11/14/2009 Inactive lisinopril-hydrochlorothiazide 20 mg-12.5 mg Tab RxNorm: 197 886 1 Tablet(s) PO QAM 06/23/2009 08/31/2009 Inactive ibuprofen 200 mg tablet RxNorm: 088302 4 Tablet(s) PO QAM No Start Da te Active Zithromax Z-Nicholas 250 mg Tab RxNorm: 270415 Tablet(s) PO as direc tenzin No Start Date 01/12/2011 Inactive Ultram Oral RxNorm: Oral No Start Date 01/01/2013 Inactive allopurinol 100 mg tablet RxNorm: 778303 1 Tablet(s) PO QD No Start Date 01/06/2015 Inactive pravastatin 40 mg tablet RxNorm: 819101 1 Tablet(s) PO QD No Start Date 01/07/2015 Inactive Naprosyn 500 mg tablet RxNorm: 206746 1 Tablet(s) PO BID No Start D ate 05/01/2013 Inactive azithromycin 250 mg tablet RxNorm: 781697 2 Tablet(s) P O QD take 2 tablets (500 mg) by oral route once daily for 1 day then 1 tablet (250 mg) by oral route once daily for 4 days No Start Date 01/12/2011 Inactive allopurinol 300 mg Tab RxNorm: 445702 1 Tablet(s) PO QD No Start Da te 01/01/2013 Inactive Colcrys 0.6 mg tablet RxNorm: 680803 1 Tablet(s) PO BID No Start Da te 05/01/2013 Inactive Medrol (Nicholas) 4 mg tablets in a dose pack RxNorm: 745755 Tablet(s) PO As Directed No Start Date 02/27/2017 Inactive hydrocodone 5 mg-acetaminophen 325 mg tablet RxNorm: 560977 1 Tablet(s) PO Q4H as needed for pain No Start Date 12/09/2013 Inactive ranitidine 150 mg Tab RxNorm: 4683474 1 Tablet(s) PO BID No Start D ate 04/13/2010 Inactive Allopurinol 100 mg Tab RxNorm: 075794 1 Tablet(s) PO BID No Start D ate 09/15/2009 Inactive coenzyme Q10 200 mg capsule RxNorm: 098927 1 Capsule(s) PO QD No St art Date 03/30/2015 Inactive Mobic 7.5 mg tablet RxNorm: 899054 1 Tablet(s) PO QD No Start Date Inactive Osteo Bi-Flex (5-Loxin) 1,500 mg-400 unit-100 mg tablet RxNo rm: 1 Tablet(s) PO BID No Start Date 03/30/2015 Inactive hydrocodone-acetaminophen 7.5 mg-325 mg Tab RxNorm: 853246 1-2 Tablet(s) PO Q4-6H No Start Date 08/03/2011 Inactive as needed for pa in Neurontin 300 mg capsule RxNorm: 266302 1 Capsule(s) PO QD No Start Date 12/09/2013 Inactive Medrol (Nicholas) 4 mg Tabs in a Dose Pack RxNorm: 081432 Tablet(s) PO N o Start Date 12/08/2010 Inactive as directed Vitamin D2 1,000 unit capsule RxNorm: 165480 1 Capsule(s) PO QD No Start Date 03/30/2015 Inactive Flexeril 10 mg Tab RxNorm: 289708 1 Tablet(s) PO TID No Start Date Inactive for spasm Medication Administered No Medication Administered data Immunizations No Immunization data Results Observation Observation Code Item Item Code Result Date S ervice Location C DIFF MOL [id number] C Diff Mol Int Negative 11/02/2018 Unk nown C Diff An [id number] C Diff Analyzer Indeterminate 9 Unknown GFR CALC 5900793 GFR Non Afr Amr >60 mL/min 11/01/2018 Un known GFR CALC 2683414 GFR Afr Amr >60 mL/min 11/01/[address] LDL 8886391 HDL CHOLESTEROL 46 mg/dL 11/01/[address] LDL 3155938 Cholesterol 198 mg/dL 11/01/[address] LDL 5229569 Triglyceride 104 mg/dL 11/01/[address] LDL 9399603 LDL Direct 158 mg/dL 11/01/[address] LDL 7591644 NON-HDL Chol 152 mg/dL 11/01/2018 Unkno wn THYROID STIMULATING HORMONE 03718 TSH 1.276 uIU/mL 11/01/2018 Unknown COMPREHENSIVE METABOLIC 75243 AST 22 U/L 2018 Unknown COMPREHENSIVE METABOLIC 71398 ALT 17 U/L 2018 Unknown COMPREHENSIVE METABOLIC 11543 BUN 16 mg/dL 2018 Unknown COMPREHENSIVE METABOLIC 20524 ALBUMIN 4.3 g/dL 2018 Unknown COMPREHENSIVE METABOLIC 29329 CHLORIDE 103 mmol/L 11/01 Unknown COMPREHENSIVE METABOLIC 42006 Bili Total 0.9 mg/dL 11/01 Unknown COMPREHENSIVE METABOLIC 03463 ALK PHOS 62 U/L 2018 Unknown COMPREHENSIVE METABOLIC 56745 SODIUM 138 mmol/L 11/01 Unknown COMPREHENSIVE METABOLIC 07898 CREATININE 0.87 mg/dL 10/09 Unknown COMPREHENSIVE METABOLIC 61991 CALCIUM 9.2 mg/dL 2018 Unknown COMPREHENSIVE METABOLIC 67472 POTASSIUM 4.1 mmol/L 11/01 Unknown COMPREHENSIVE METABOLIC 32300 Total Protein 7.2 g/dL Unknown COMPREHENSIVE METABOLIC 98144 Glucose 81 mg/dL 2018 Unknown COMPREHENSIVE METABOLIC 73662 Bicarbonate 18 mmol/L 10/09 Unknown COMPREHENSIVE METABOLIC 00555 AGAP 17 mmol/L 2018 Unknown COMPLETE BLOOD COUNT 1112924 WBC 8.8 10e9/L 11/02/19 19 Unknown COMPLETE BLOOD COUNT 9346009 RBC 4.54 10e12/L 2018 Unknown COMPLETE BLOOD COUNT 5563401 HEMOGLOBIN 14.4 g/dL 11/02/19 19 Unknown COMPLETE BLOOD COUNT 6276253 HEMATOCRIT 44.0 % 11/02/19 19 Unknown COMPLETE BLOOD COUNT 2553244 MCV 96.9 fL 9 Unknown COMPLETE BLOOD COUNT 4538256 MCH 31.7 pg 9 Unknown COMPLETE BLOOD COUNT 9421135 MCHC 32.7 g/dL 9 Unknown COMPLETE BLOOD COUNT 2505943 PLATELET COUNT 239 10e9/L Unknown COMPLETE BLOOD COUNT 3752083 Mean Plt Volume 10.5 fL Unknown COMPLETE BLOOD COUNT 1129481 NRBC Absolute 0.00 10e9/L Unknown COMPLETE BLOOD COUNT 8021876 Neut Auto 65.2 % 9 Unknown COMPLETE BLOOD COUNT 2471382 NRBC/100 WBC 0.0 2018 Unknown COMPLETE BLOOD COUNT 7409464 Lymph Auto 23.1 % 11/02/19 19 Unknown COMPLETE BLOOD COUNT 8687961 [place] Auto 9.5 % 9 Unknown COMPLETE BLOOD COUNT 4957147 RDW 12.2 % 9 Unknown COMPLETE BLOOD COUNT 0747456 Eos Auto 1.7 % 9 Unknown COMPLETE BLOOD COUNT 1901621 Baso Auto 0.3 % 9 Unknown COMPLETE BLOOD COUNT [id number] Neutrophil Abs 5.73 10e9/L Unknown COMPLETE BLOOD COUNT 3233897 Imm Gran Auto 0.2 % 11/01 Unknown COMPLETE BLOOD COUNT 9058886 Lymphocyte Abs 2.03 10e9/L Unknown COMPLETE BLOOD COUNT [id number] Monocyte Abs 0.84 10e9/L 10/09 Unknown COMPLETE BLOOD COUNT 2011321 Eosinophil Abs 0.15 10e9/L Unknown COMPLETE BLOOD COUNT 9750319 RDW-SD 43.4 fL 9 Unknown COMPLETE BLOOD COUNT [id number] Basophil Abs 0.03 10e9/L 10/09 Unknown COMPLETE BLOOD COUNT 4799054 Imm Gran Abs 0.02 10e9/L 10/09 Unknown COMPREHENSIVE METABOLIC 21890 AST 17 U/L 2016 Unknown COMPREHENSIVE METABOLIC 99978 ALT 16 U/L 2016 Unknown COMPREHENSIVE METABOLIC 81570 BUN 15 mg/dL 2016 Unknown COMPREHENSIVE METABOLIC 19444 ALBUMIN 4.4 g/dL 2016 Unknown COMPREHENSIVE METABOLIC 29068 CHLORIDE 104 mmol/L 03/29 Unknown COMPREHENSIVE METABOLIC 74592 Bili Total 0.5 mg/dL 03/29 Unknown COMPREHENSIVE METABOLIC 59604 ALK PHOS 56 U/L 2016 Unknown COMPREHENSIVE METABOLIC 57106 SODIUM 139 mmol/L 03/29 Unknown COMPREHENSIVE METABOLIC 14054 CREATININE 0.88 mg/dL 03/11 Unknown COMPREHENSIVE METABOLIC 21494 CALCIUM 9.8 mg/dL 2016 Unknown COMPREHENSIVE METABOLIC 26133 POTASSIUM 4.2 mmol/L 03/29 Unknown COMPREHENSIVE METABOLIC 73990 Total Protein 6.8 g/dL Unknown COMPREHENSIVE METABOLIC 37778 Glucose 100 mg/dL 2016 Unknown COMPREHENSIVE METABOLIC 23045 Bicarbonate 30 mmol/L 03/11 Unknown COMPREHENSIVE METABOLIC 03591 AGAP 5 mmol/L 2016 Unknown THYROID STIMULATING HORMONE 04210 TSH 1.077 uIU/mL 03/29/2017 Unknown URIC ACID 95414 URIC ACID 5.2 mg/dL 03/29/2017 Unknown FREE T4 35811 T4 Free 1.04 ng/dL 03/29/2017 Unknown ERYTHROCYTE SEDIMENTATION RATE 53820 Sed Rate 21 mm/hr 03/29/2017 Unknown COMPLETE BLOOD COUNT 6893849 WBC 5.9 10e9/L 03/29/20 17 Unknown COMPLETE BLOOD COUNT 2912423 RBC 4.52 10e12/L 2016 Unknown COMPLETE BLOOD COUNT 4207757 HEMOGLOBIN 14.6 g/dL 03/29/20 17 Unknown COMPLETE BLOOD COUNT 4373209 HEMATOCRIT 44.7 % 03/29/20 17 Unknown COMPLETE BLOOD COUNT 5030221 MCV 98.9 fL 7 Unknown COMPLETE BLOOD COUNT 6813305 MCH 32.3 pg 7 Unknown COMPLETE BLOOD COUNT 8033435 MCHC 32.7 g/dL 7 Unknown COMPLETE BLOOD COUNT 0059588 PLATELET COUNT 262 10e9/L Unknown COMPLETE BLOOD COUNT 3921104 Mean Plt Volume 10.1 fL Unknown COMPLETE BLOOD COUNT 4509509 Neut Auto 44.2 % 7 Unknown COMPLETE BLOOD COUNT 5674770 Lymph Auto 41.5 % 03/29/20 17 Unknown COMPLETE BLOOD COUNT 2833259 [place] Auto 11.2 % 7 Unknown COMPLETE BLOOD COUNT 9266763 RDW 12.3 % 7 Unknown COMPLETE BLOOD COUNT 5746385 Eos Auto 2.6 % 7 Unknown COMPLETE BLOOD COUNT 1971341 Baso Auto 0.5 % 7 Unknown COMPLETE BLOOD COUNT 2299385 Neutrophil Abs 2.61 10e9/L Unknown COMPLETE BLOOD COUNT 0957586 Lymphocyte Abs 2.45 10e9/L Unknown COMPLETE BLOOD COUNT 0006886 Monocyte Abs 0.66 10e9/L 03/11 Unknown COMPLETE BLOOD COUNT 5674860 Eosinophil Abs 0.15 10e9/L Unknown COMPLETE BLOOD COUNT 2752260 RDW-SD 43.7 fL 7 Unknown COMPLETE BLOOD COUNT 0117684 Basophil Abs 0.03 10e9/L 03/11 Unknown LIPID GROUP 07412 Cholesterol 248 mg/dL 03/29/2017 Unkno wn LIPID GROUP 71707 Triglyceride 87 mg/dL 03/29/2017 Unkn own LIPID GROUP 98221 HDL CHOLESTEROL 49 mg/dL 03/29/2017 U nknown LIPID GROUP 04899 Chol/HDL Ratio 5.06 ratio 03/29/2017 U nknown LIPID GROUP 97588 NON-HDL Chol 199 mg/dL 03/29/2017 Unkn own LIPID GROUP 11700 LDL Cholesterol 182 mg/dL 03/29/2017 U nknown GFR CALC 0587257 GFR Non Afr Amr >60 mL/min 03/29/2017 Un known GFR CALC 0725306 GFR Afr Amr >60 mL/min 03/29/2017 Unknow n HIV AG/AB 9448205 HIV Ag/Ab Non-Reactive 03/15/2017 Unkno wn VIRAL HEPATITIS PROFILE #2 56612 Hep A IgM Non-Reactive 03/15/2017 Unknown VIRAL HEPATITIS PROFILE #2 51393 Hep B Core IgM Non-Reac tive 03/15/2017 Unknown VIRAL HEPATITIS PROFILE #2 45039 Hepatitis C Ab Non-Reac tive 03/15/2017 Unknown VIRAL HEPATITIS PROFILE #2 89501 Hep Bs Ag Non-Reactive 03/15/2017 Unknown COMPREHENSIVE METABOLIC 22416 AST 23 U/L 2014 Unknown COMPREHENSIVE METABOLIC 26260 ALT 21 IU/L 2014 Unknown COMPREHENSIVE METABOLIC 96510 BUN 13 MG/DL 2014 Unknown COMPREHENSIVE METABOLIC 31653 ALBUMIN 4.3 GM/DL 2014 Unknown COMPREHENSIVE METABOLIC 16559 CHLORIDE 105 MMOL/L 01/07 Unknown COMPREHENSIVE METABOLIC 69931 BILI TOT 0.7 MG/DL 2014 Unknown COMPREHENSIVE METABOLIC 86713 ALK PHOS 51 U/L 2014 Unknown COMPREHENSIVE METABOLIC 17618 SODIUM 139 MMOL/L 01/07 Unknown COMPREHENSIVE METABOLIC 90478 CREATININE 0.85 MG/DL 12/11 Unknown COMPREHENSIVE METABOLIC 41285 CALCIUM 9.5 MG/DL 2014 Unknown COMPREHENSIVE METABOLIC 51664 POTASSIUM 4.4 MMOL/L 01/07 Unknown COMPREHENSIVE METABOLIC 23231 PROT TOT 6.7 GM/DL 2014 Unknown COMPREHENSIVE METABOLIC 88744 Glucose 100 MG/DL 2014 Unknown COMPREHENSIVE METABOLIC 37833 BICARB 27 MMOL/L 2014 Unknown COMPREHENSIVE METABOLIC 11972 ANION GAP 7 MEQ/L 2014 Unknown THYROID STIMULATING HORMONE 49406 TSH 0.900 uIU/ML 01/07/2015 Unknown COMPLETE BLOOD COUNT 4928316 WBC 4.9 10e9/L 01/08/20 15 Unknown COMPLETE BLOOD COUNT 0588488 RBC 4.71 10e12/L 2014 Unknown COMPLETE BLOOD COUNT 5280450 HGB 15.3 g/dL 5 Unknown COMPLETE BLOOD COUNT 8706075 HCT DET 46.1 % 5 Unknown COMPLETE BLOOD COUNT 8500338 MCV 97.9 fL 5 Unknown COMPLETE BLOOD COUNT 8561308 MCH 32.5 pg 5 Unknown COMPLETE BLOOD COUNT 2102716 MCHC 33.2 g/dL 5 Unknown COMPLETE BLOOD COUNT 2183765 PLT 227 10e9/L 01/08/20 15 Unknown COMPLETE BLOOD COUNT 0942902 MPV 10.9 fL 5 Unknown COMPLETE BLOOD COUNT 5554152 VERONIQUE % 53.0 % 5 Unknown COMPLETE BLOOD COUNT 0349749 LY % 35.8 % 5 Unknown COMPLETE BLOOD COUNT 7770424 MON % 8.6 % 5 Unknown COMPLETE BLOOD COUNT 5918472 EOS % 2.2 % 5 Unknown COMPLETE BLOOD COUNT 3657402 BASO % 0.4 % 5 Unknown COMPLETE BLOOD COUNT 1430842 RDW 12.9 % 5 Unknown COMPLETE BLOOD COUNT 0237321 ABS VERONIQUE 2.60 10e9/L 015 Unknown COMPLETE BLOOD COUNT 2159532 ABS LYMPH 1.75 10e9/L 015 Unknown COMPLETE BLOOD COUNT 9117028 ABS MONO 0.42 10e9/L 015 Unknown COMPLETE BLOOD COUNT 9244231 ABS EOS 0.11 10e9/L 015 Unknown COMPLETE BLOOD COUNT 0644732 ABS BASO 0.02 10e9/L 015 Unknown COMPLETE BLOOD COUNT 9307670 RDW-SD 45.7 fL 5 Unknown URIC ACID 18923 URIC ACID 6.7 MG/DL 01/07/2015 Unknown LIPID GROUP 14610 HDL TEST 52 MG/DL 01/07/2015 Unknown LIPID GROUP 65610 TRIG 158 MG/DL 01/07/2015 Unknown LIPID GROUP 66060 TEST LDL 157 MG/DL 01/07/2015 Unknown LIPID GROUP 24610 CHOL 241 MG/DL 01/07/2015 Unknown LIPID GROUP 55262 RCHOL/HDL 4.63 RATIO 01/07/2015 Unknow n LIPID GROUP 11426 NON-HDL CH 189 MG/DL 01/07/2015 Unknow n GFR CALC 2890814 GFR AA >60 ML/MIN 01/07/2015 Unknown GFR CALC 9267333 GFR NON-AA >60 ML/MIN 01/07/2015 Unknown PSA EQUIMOLAR JONATAN 98437 PSA EQ 2.18 NG/ML 5 Unknown FREE T4 33556 FREE T4 1.04 NG/DL 01/07/2015 Unknown GFR CALC 8757099 GFR AA >60 ML/MIN 12/11/2013 Unknown GFR CALC 7351359 GFR NON-AA >60 ML/MIN 12/11/2013 Unknown LIPID GROUP 67015 HDL TEST 54 MG/DL 12/11/2013 Unknown LIPID GROUP 14836 TRIG 81 MG/DL 12/11/2013 Unknown LIPID GROUP 85299 TEST LDL 185 MG/DL 12/11/2013 Unknown LIPID GROUP 96572 CHOL 255 MG/DL 12/11/2013 Unknown LIPID GROUP 74031 RCHOL/HDL 4.72 RATIO 12/11/2013 Unknow n LIPID GROUP 69776 NON-HDL CH 201 MG/DL 12/11/2013 Unknow n URIC ACID 48682 URIC ACID 7.1 MG/DL 12/11/2013 Unknown PSA EQUIMOLAR JONATAN 16037 PSA EQ 3.80 NG/ML 4 Unknown COMPLETE BLOOD COUNT 6948571 WBC 5.9 10e9/L 12/12/19 14 Unknown COMPLETE BLOOD COUNT 7899577 RBC 4.40 10e12/L 2013 Unknown COMPLETE BLOOD COUNT 9790391 HGB 14.5 g/dL 4 Unknown COMPLETE BLOOD COUNT 2524904 HCT DET 43.6 % 4 Unknown COMPLETE BLOOD COUNT 5596147 MCV 99.1 fL 4 Unknown COMPLETE BLOOD COUNT 8900988 MCH 33.0 pg 4 Unknown COMPLETE BLOOD COUNT 1306845 MCHC 33.3 g/dL 4 Unknown COMPLETE BLOOD COUNT 8056326 PLT 289 10e9/L 12/12/19 14 Unknown COMPLETE BLOOD COUNT 6740314 MPV 10.2 fL 4 Unknown COMPLETE BLOOD COUNT 7224096 VERONIQUE % 47.9 % 4 Unknown COMPLETE BLOOD COUNT 3801854 LY % 40.6 % 4 Unknown COMPLETE BLOOD COUNT 9250443 MON % 8.8 % 4 Unknown COMPLETE BLOOD COUNT 8248988 EOS % 2.2 % 4 Unknown COMPLETE BLOOD COUNT 0111891 BASO % 0.5 % 4 Unknown COMPLETE BLOOD COUNT 7280909 RDW 12.9 % 4 Unknown COMPLETE BLOOD COUNT 8475709 ABS VERONIQUE 2.83 10e9/L 014 Unknown COMPLETE BLOOD COUNT 6638837 ABS LYMPH 2.40 10e9/L 014 Unknown COMPLETE BLOOD COUNT 0452901 ABS MONO 0.52 10e9/L 014 Unknown COMPLETE BLOOD COUNT 2512810 ABS EOS 0.13 10e9/L 014 Unknown COMPLETE BLOOD COUNT 5592497 ABS BASO 0.03 10e9/L 014 Unknown COMPLETE BLOOD COUNT 0128526 RDW-SD 45.7 fL 4 Unknown THYROID STIMULATING HORMONE 78249 TSH 1.013 uIU/ML 12/11/2013 Unknown COMPREHENSIVE METABOLIC 96542 AST 20 U/L 2013 Unknown COMPREHENSIVE METABOLIC 86948 ALT 16 IU/L 2013 Unknown COMPREHENSIVE METABOLIC 35061 BUN 17 MG/DL 2013 Unknown COMPREHENSIVE METABOLIC 99192 ALBUMIN 4.6 GM/DL 2013 Unknown COMPREHENSIVE METABOLIC 57728 CHLORIDE 107 MMOL/L 12/11 Unknown COMPREHENSIVE METABOLIC 86495 BILI TOT 0.7 MG/DL 2013 Unknown COMPREHENSIVE METABOLIC 88044 ALK PHOS 53 U/L 2013 Unknown COMPREHENSIVE METABOLIC 13334 SODIUM 140 MMOL/L 12/11 Unknown COMPREHENSIVE METABOLIC 83090 CREATININE 0.84 MG/DL 06/2013 Unknown COMPREHENSIVE METABOLIC 47952 CALCIUM 9.7 MG/DL 2013 Unknown COMPREHENSIVE METABOLIC 20202 POTASSIUM 4.6 MMOL/L 12/11 Unknown COMPREHENSIVE METABOLIC 17423 PROT TOT 6.9 GM/DL 2013 Unknown COMPREHENSIVE METABOLIC 11684 Glucose 97 MG/DL 2013 Unknown COMPREHENSIVE METABOLIC 01758 BICARB 25 MMOL/L 2013 Unknown COMPREHENSIVE METABOLIC 64751 ANION GAP 8 MEQ/L 2013 Unknown FREE T4 85386 FREE T4 1.11 NG/DL 12/11/2013 Unknown ASSAY OF CREATININE 25517 CREATININE 0.98 MG/DL 09/15/19 12 Unknown URIC ACID 72737 URIC ACID 4.9 MG/DL 09/15/2011 Unknown GFR CALC 6070845 GFR AA >60 ML/MIN 09/15/2011 Unknown GFR CALC 8596103 GFR NON-AA >60 ML/MIN 09/15/2011 Unknown THYROID STIMULATING HORMONE 22529 TSH 1.687 uIU/ML 08/01/2011 Unknown FREE T4 12888 FREE T4 0.96 NG/DL 08/01/2011 Unknown SJOGRENS 2256924 SJOGRN A <20 EU/ML 08/01/2011 Unknown SJOGRENS 1055342 SJOGRN B <20 EU/ML 08/01/2011 Unknown SJOGRENS 6236198 NONHIS INT SEE BELO 08/01/2011 Unknown THYRO PERX 0961348 THYRO PERX 175.34 UNITS 07/30/2011 Unkn own DNA AB 5845184 DNA AB 32 IU/ML 07/29/2011 Unknown TITER WENDI 7963518 TITR WENDI 1:160 07/29/2011 Unknown TITER WENDI [id number] PATTERN NUCLEOLR 07/29/2011 Unknown ANTINUCLEAR ANTIBODY SCREEN 93803 WENDI SCR POSITIVE Unknown COMPREHENSIVE METABOLIC 71485 AST 23 U/L 2011 Unknown COMPREHENSIVE METABOLIC 92102 ALT 26 IU/L 2011 Unknown COMPREHENSIVE METABOLIC 70556 BUN 18 MG/DL 2011 Unknown COMPREHENSIVE METABOLIC 45612 ALBUMIN 4.6 GM/DL 2011 Unknown COMPREHENSIVE METABOLIC 88333 CHLORIDE 105 MMOL/L 07/27 Unknown COMPREHENSIVE METABOLIC 62445 BILI TOT 0.5 MG/DL 2011 Unknown COMPREHENSIVE METABOLIC 16624 ALK PHOS 63 U/L 2011 Unknown COMPREHENSIVE METABOLIC 77099 SODIUM 138 MMOL/L 07/27 Unknown COMPREHENSIVE METABOLIC 99613 CREATININE 0.92 MG/DL 07/09 Unknown COMPREHENSIVE METABOLIC 97818 CALCIUM 9.4 MG/DL 2011 Unknown COMPREHENSIVE METABOLIC 83427 POTASSIUM 3.9 MMOL/L 07/27 Unknown COMPREHENSIVE METABOLIC 88724 PROT TOT 6.7 GM/DL 2011 Unknown COMPREHENSIVE METABOLIC 85559 Glucose 101 MG/DL 2011 Unknown COMPREHENSIVE METABOLIC 50016 BICARB 24 MMOL/L 2011 Unknown COMPREHENSIVE METABOLIC 73019 ANION GAP 9 MEQ/L 2011 Unknown GFR CALC 1719501 GFR AA >60 ML/MIN 07/28/2011 Unknown GFR CALC 7198358 GFR NON-AA >60 ML/MIN 07/28/2011 Unknown ERYTHROCYTE SEDIMENTATION RATE 95720 ESR 2 MM/HR 07/28/2011 Unknown URIC ACID 30258 URIC ACID 5.8 MG/DL 07/28/2011 Unknown C-REACTIVE PROTEIN (CRP) QUANT 32158 CRP 0.2 MG/DL 07/28/2011 Unknown TITER WENDI 2158634 TITR WENID 1:160 05/26/2011 Unknown TITER WENDI 6876741 PATTERN NUCLEOLR 05/26/2011 Unknown RA FACTOR 26201 RA FACTOR <20.0 IU/ML 05/26/2011 Unknown ANTINUCLEAR ANTIBODY SCREEN 76736 WENDI SCR POSITIVE Unknown URIC ACID 46351 URIC ACID 8.7 MG/DL 05/25/2011 Unknown PSA EQUIMOLAR JONATAN 96448 PSA EQ 2.79 NG/ML 2 Unknown LIPID GROUP 71551 HDL TEST 47 MG/DL 05/25/2011 Unknown LIPID GROUP 44907 TRIG 198 MG/DL 05/25/2011 Unknown LIPID GROUP 21237 TEST LDL 180 MG/DL 05/25/2011 Unknown LIPID GROUP 71895 CHOL 267 MG/DL 05/25/2011 Unknown LIPID GROUP 41524 RCHOL/HDL 5.68 RATIO 05/25/2011 Unknow n COMPREHENSIVE METABOLIC 00931 AST 21 U/L 2011 Unknown COMPREHENSIVE METABOLIC 68447 ALT 21 IU/L 2011 Unknown COMPREHENSIVE METABOLIC 56385 BUN 16 MG/DL 2011 Unknown COMPREHENSIVE METABOLIC 32511 ALBUMIN 4.4 GM/DL 2011 Unknown COMPREHENSIVE METABOLIC 75408 CHLORIDE 105 MMOL/L 05/25 Unknown COMPREHENSIVE METABOLIC 57593 BILI TOT 0.7 MG/DL 2011 Unknown COMPREHENSIVE METABOLIC 99965 ALK PHOS 60 U/L 2011 Unknown COMPREHENSIVE METABOLIC 73951 SODIUM 139 MMOL/L 05/25 Unknown COMPREHENSIVE METABOLIC 65922 CREATININE 0.92 MG/DL 05/11 Unknown COMPREHENSIVE METABOLIC 04426 CALCIUM 9.4 MG/DL 2011 Unknown COMPREHENSIVE METABOLIC 02606 POTASSIUM 4.1 MMOL/L 05/25 Unknown COMPREHENSIVE METABOLIC 10370 PROT TOT 7.0 GM/DL 2011 Unknown COMPREHENSIVE METABOLIC 06515 Glucose 108 MG/DL 2011 Unknown COMPREHENSIVE METABOLIC 25312 BICARB 25 MMOL/L 2011 Unknown COMPREHENSIVE METABOLIC 32656 ANION GAP 9 MEQ/L 2011 Unknown GFR CALC [id number] GFR AA >60 ML/MIN 05/25/2011 Unknown GFR CALC [id number] GFR NON-AA >60 ML/MIN 05/25/2011 Unknown COMPLETE BLOOD COUNT 96183 WBC 5.6 10e9/L 05/25/19 12 Unknown COMPLETE BLOOD COUNT 21528 RBC 5.01 10e12/L 2011 Unknown COMPLETE BLOOD COUNT 38761 HGB 15.8 g/dL 2 Unknown COMPLETE BLOOD COUNT 76269 HCT DET 46.1 % 2 Unknown COMPLETE BLOOD COUNT 42220 MCV 92.0 fL 2 Unknown COMPLETE BLOOD COUNT 52654 MCH 31.5 pg 2 Unknown COMPLETE BLOOD COUNT 24937 MCHC 34.3 g/dL 2 Unknown COMPLETE BLOOD COUNT 09225 PLT 246 10e9/L 05/25/19 12 Unknown COMPLETE BLOOD COUNT 42563 MPV 10.3 fL 2 Unknown COMPLETE BLOOD COUNT 87832 VERONIQUE % 47.1 % 2 Unknown COMPLETE BLOOD COUNT 12834 LY % 41.0 % 2 Unknown COMPLETE BLOOD COUNT 45976 MON % 8.9 % 2 Unknown COMPLETE BLOOD COUNT 76645 EOS % 2.5 % 2 Unknown COMPLETE BLOOD COUNT 53181 BASO % 0.5 % 2 Unknown COMPLETE BLOOD COUNT 64820 RDW 12.7 % 2 Unknown COMPLETE BLOOD COUNT 39515 ABS VERONIQUE 2.64 10e9/L 012 Unknown COMPLETE BLOOD COUNT 76439 ABS LYMPH 2.30 10e9/L 012 Unknown COMPLETE BLOOD COUNT 71327 ABS MONO 0.50 10e9/L 012 Unknown COMPLETE BLOOD COUNT 77461 ABS EOS 0.14 10e9/L 012 Unknown COMPLETE BLOOD COUNT 34414 ABS BASO 0.03 10e9/L 012 Unknown COMPLETE BLOOD COUNT 27429 RDW-SD 41.3 fL 2 Unknown COMPREHENSIVE METABOLIC 34641 AST 18 U/L 2010 Unknown COMPREHENSIVE METABOLIC 75295 ALT 14 IU/L 2010 Unknown COMPREHENSIVE METABOLIC 63958 BUN 12 MG/DL 2010 Unknown COMPREHENSIVE METABOLIC 70583 ALBUMIN 4.6 GM/DL 2010 Unknown COMPREHENSIVE METABOLIC 60970 CHLORIDE 102 MMOL/L 02/01 Unknown COMPREHENSIVE METABOLIC 15228 BILI TOT 0.6 MG/DL 2010 Unknown COMPREHENSIVE METABOLIC 62875 ALK PHOS 66 U/L 2010 Unknown COMPREHENSIVE METABOLIC 26504 SODIUM 139 MMOL/L 02/01 Unknown COMPREHENSIVE METABOLIC 02113 CREATININE 0.92 MG/DL 01/09 Unknown COMPREHENSIVE METABOLIC 06210 CALCIUM 9.8 MG/DL 2010 Unknown COMPREHENSIVE METABOLIC 93904 POTASSIUM 4.1 MMOL/L 02/01 Unknown COMPREHENSIVE METABOLIC 37998 PROT TOT 7.0 GM/DL 2010 Unknown COMPREHENSIVE METABOLIC 28452 Glucose 101 MG/DL 2010 Unknown COMPREHENSIVE METABOLIC 09079 BICARB 25 MMOL/L 2010 Unknown COMPREHENSIVE METABOLIC 97027 ANION GAP 12 MEQ/L 2010 Unknown GFR CALC [id number] GFR AA >60 ML/MIN 02/01/2011 Unknown GFR CALC [id number] GFR NON-AA >60 ML/MIN 02/01/2011 Unknown LIPID GROUP 67863 HDL TEST 44 MG/DL 02/01/2011 Unknown LIPID GROUP 02480 TRIG 157 MG/DL 02/01/2011 Unknown LIPID GROUP 44176 TEST LDL 193 MG/DL 02/01/2011 Unknown LIPID GROUP 47386 CHOL 268 MG/DL 02/01/2011 Unknown LIPID GROUP 46653 RCHOL/HDL 6.09 RATIO 02/01/2011 Unknow n FREE T4 16432 FREE T4 1.04 NG/DL 02/01/2011 Unknown COMPLETE BLOOD COUNT 14330 WBC 6.4 10e9/L 02/02/20 11 Unknown COMPLETE BLOOD COUNT 46807 RBC 4.56 10e12/L 2010 Unknown COMPLETE BLOOD COUNT 80406 HGB 14.4 g/dL 1 Unknown COMPLETE BLOOD COUNT 60819 HCT DET 43.0 % 1 Unknown COMPLETE BLOOD COUNT 18055 MCV 94.3 fL 1 Unknown COMPLETE BLOOD COUNT 74225 MCH 31.6 pg 1 Unknown COMPLETE BLOOD COUNT 97578 MCHC 33.5 g/dL 1 Unknown COMPLETE BLOOD COUNT 36563 PLT 300 10e9/L 02/02/20 11 Unknown COMPLETE BLOOD COUNT 17247 MPV 9.9 fL 1 Unknown COMPLETE BLOOD COUNT 60127 VERONIQUE % 38.5 % 1 Unknown COMPLETE BLOOD COUNT 28203 LY % 49.1 % 1 Unknown COMPLETE BLOOD COUNT 43770 MON % 10.1 % 1 Unknown COMPLETE BLOOD COUNT 85728 EOS % 1.7 % 1 Unknown COMPLETE BLOOD COUNT 26259 BASO % 0.6 % 1 Unknown COMPLETE BLOOD COUNT 48911 RDW 15.1 % 1 Unknown COMPLETE BLOOD COUNT 93794 ABS VERONIQUE 2.46 10e9/L 011 Unknown COMPLETE BLOOD COUNT 03280 ABS LYMPH 3.14 10e9/L 011 Unknown COMPLETE BLOOD COUNT 43834 ABS MONO 0.65 10e9/L 011 Unknown COMPLETE BLOOD COUNT 55884 ABS EOS 0.11 10e9/L 011 Unknown COMPLETE BLOOD COUNT 31651 ABS BASO 0.04 10e9/L 011 Unknown COMPLETE BLOOD COUNT 74536 RDW-SD 50.6 fL 1 Unknown THYROID STIMULATING HORMONE 05952 TSH 1.128 uIU/ML 02/01/2011 Unknown PSA EQUIMOLAR JONATAN 78093 PSA EQ 3.83 NG/ML 1 Unknown VCA AB G/M [id number] EBV G VCA 3.34 12/03/2010 Unknown VCA AB G/M [id number] EBV M VCA 0.12 12/03/2010 Unknown EB GARY AG [id number] EB GARY AG 0.47 12/03/2010 Unknown EB NUCL AB [id number] EB NUCL AB 3.72 12/03/2010 Unknown COMPLETE BLOOD COUNT 99881 WBC 8.0 10e9/L 12/03/19 11 Unknown COMPLETE BLOOD COUNT 98826 RBC 4.93 10e12/L 2010 Unknown COMPLETE BLOOD COUNT 30415 HGB 15.7 g/dL 1 Unknown COMPLETE BLOOD COUNT 19703 HCT DET 45.4 % 1 Unknown COMPLETE BLOOD COUNT 96326 MCV 92.1 fL 1 Unknown COMPLETE BLOOD COUNT 54714 MCH 31.8 pg 1 Unknown COMPLETE BLOOD COUNT 44880 MCHC 34.6 g/dL 1 Unknown COMPLETE BLOOD COUNT 54380 PLT 248 10e9/L 12/03/19 11 Unknown COMPLETE BLOOD COUNT 41575 MPV 10.4 fL 1 Unknown COMPLETE BLOOD COUNT 67191 VERONIQUE % 74.0 % 1 Unknown COMPLETE BLOOD COUNT 67954 LY % 19.6 % 1 Unknown COMPLETE BLOOD COUNT 18549 MON % 5.2 % 1 Unknown COMPLETE BLOOD COUNT 92797 EOS % 1.1 % 1 Unknown COMPLETE BLOOD COUNT 49242 BASO % 0.1 % 1 Unknown COMPLETE BLOOD COUNT 80936 RDW 12.5 % 1 Unknown COMPLETE BLOOD COUNT 71795 ABS VERONIQUE 5.92 10e9/L 011 Unknown COMPLETE BLOOD COUNT 34323 ABS LYMPH 1.57 10e9/L 011 Unknown COMPLETE BLOOD COUNT 75303 ABS MONO 0.42 10e9/L 011 Unknown COMPLETE BLOOD COUNT 95508 ABS EOS 0.09 10e9/L 011 Unknown COMPLETE BLOOD COUNT 46182 ABS BASO 0.01 10e9/L 011 Unknown COMPLETE BLOOD COUNT 62419 RDW-SD 41.1 fL 1 Unknown URIC ACID 26530 URIC ACID 9.3 MG/DL 12/02/2010 Unknown Procedures Procedure Codes Date THER/PROPH/DIAG INJ SC/IM CPT-4: 53638 05/17/2019 TRIAMCINOLONE ACET INJ NOS CPT-4: J3301 05/17/2019 DRAINAGE OF SKIN ABSCESS CPT-4: 31670 01/23/2019 AEROBIC WOUND CULTURE & STN CPT-4: 17417 01/23/2019 ROUTINE VENIPUNCTURE CPT-4: 89517 03/29/2017 ASSAY THYROID STIM HORMONE CPT-4: 89165 03/29/2017 ASSAY OF FREE THYROXINE CPT-4: 84882 03/29/2017 COMPREHEN METABOLIC PANEL CPT-4: 78614 03/29/2017 COMPLETE CBC W/AUTO DIFF WBC CPT-4: 78859 03/29/2017 LIPID PANEL CPT-4: 66752 03/29/2017 ASSAY OF BLOOD/URIC ACID CPT-4: 86978 03/29/2017 RBC SED RATE AUTOMATED CPT-4: 12205 03/29/2017 ROUTINE VENIPUNCTURE CPT-4: 87617 03/15/2017 ACUTE HEPATITIS PANEL CPT-4: 57240 03/15/2017 HIV-1/HIV-2 1 RESULT ANTBDY CPT-4: 68275 03/15/2017 EXC TR-EXT B9+SHASHA 0.5 CM< CPT-4: 02709 03/15/2017 EXC TR-EXT B9+SHASHA 1.1-2 CM CPT-4: 01347 03/15/2017 URINALYSIS NONAUTO W/O SCOPE CPT-4: 65320 01/07/2015 URINE CULTURE/ COLONY COUNT CPT-4: 75264 01/07/2015 ROUTINE VENIPUNCTURE CPT-4: 08358 01/07/2015 ASSAY OF FREE THYROXINE CPT-4: 85444 01/07/2015 ASSAY THYROID STIM HORMONE CPT-4: 75421 01/07/2015 COMPREHEN METABOLIC PANEL CPT-4: 69226 01/07/2015 COMPLETE CBC W/AUTO DIFF WBC CPT-4: 18687 01/07/2015 LIPID PANEL CPT-4: 10392 01/07/2015 ASSAY OF PSA TOTAL CPT-4: 87082 01/07/2015 ASSAY OF BLOOD/URIC ACID CPT-4: 50410 01/07/2015 ROUTINE VENIPUNCTURE CPT-4: 00393 12/11/2013 ASSAY OF FREE THYROXINE CPT-4: 80273 12/11/2013 ASSAY THYROID STIM HORMONE CPT-4: 58956 12/11/2013 COMPREHEN METABOLIC PANEL CPT-4: 40071 12/11/2013 COMPLETE CBC W/AUTO DIFF WBC CPT-4: 41013 12/11/2013 LIPID PANEL CPT-4: 96914 12/11/2013 ASSAY OF BLOOD/URIC ACID CPT-4: 33507 12/11/2013 ASSAY OF PSA TOTAL CPT-4: 42847 12/11/2013 URINE CULTURE/ COLONY COUNT CPT-4: 96873 01/02/2013 AEROBIC WOUND CULTURE & STN CPT-4: 11747 10/10/2011 DRAINAGE OF SKIN ABSCESS CPT-4: 55408 10/10/2011 ASSAY OF CREATININE CPT-4: 52683 09/15/2011 ASSAY OF BLOOD/URIC ACID CPT-4: 34594 09/15/2011 ROUTINE VENIPUNCTURE CPT-4: 21178 07/28/2011 ANTINUCLEAR ANTIBODIES CPT-4: 84480 07/28/2011 RBC SED RATE AUTOMATED CPT-4: 73224 07/28/2011 ASSAY OF BLOOD/URIC ACID CPT-4: 45059 07/28/2011 COMPREHEN METABOLIC PANEL CPT-4: 69353 07/28/2011 C-REACTIVE PROTEIN CPT-4: 79159 07/28/2011 THYRO PERX CPT-4: 1515866 07/28/2011 DNA AB CPT-4: 7571702 07/28/2011 SJOGRENS CPT-4: 8199372 07/28/2011 ASSAY OF FREE THYROXINE CPT-4: 17675 07/28/2011 ASSAY THYROID STIM HORMONE CPT-4: 61653 07/28/2011 ROUTINE VENIPUNCTURE CPT-4: 21354 05/25/2011 COMPREHEN METABOLIC PANEL CPT-4: 57634 05/25/2011 COMPLETE CBC W/AUTO DIFF WBC CPT-4: 52609 05/25/2011 ANTINUCLEAR ANTIBODIES CPT-4: 09550 05/25/2011 RHEUMATOID FACTOR QUANT CPT-4: 49976 05/25/2011 ASSAY OF PSA TOTAL CPT-4: 37919 05/25/2011 ASSAY OF BLOOD/URIC ACID CPT-4: 50733 05/25/2011 LIPID PANEL CPT-4: 18498 05/25/2011 ROUTINE VENIPUNCTURE CPT-4: 43454 02/01/2011 ASSAY OF FREE THYROXINE CPT-4: 68147 02/01/2011 ASSAY THYROID STIM HORMONE CPT-4: 21499 02/01/2011 COMPREHEN METABOLIC PANEL CPT-4: 07239 02/01/2011 COMPLETE CBC W/AUTO DIFF WBC CPT-4: 60149 02/01/2011 LIPID PANEL CPT-4: 16761 02/01/2011 ASSAY OF PSA TOTAL CPT-4: 51387 02/01/2011 ROUTINE VENIPUNCTURE CPT-4: 39799 12/02/2010 ASSAY OF BLOOD/URIC ACID CPT-4: 16359 12/02/2010 EB VIRUS VCA G/M + EBNA + EA CPT-4: 14324|22427 x 2|11739 COMPLETE CBC W/AUTO DIFF WBC CPT-4: 38846 12/02/2010 COMPREHEN METABOLIC PANEL CPT-4: 92947 09/14/2009 ASSAY OF BLOOD/URIC ACID CPT-4: 70788 09/14/2009 ROUTINE VENIPUNCTURE CPT-4: 50318 09/14/2009 URINALYSIS NONAUTO W/O SCOPE CPT-4: 05487 09/01/2009 Vital Signs Date Vital 05/17/2019 Blood Pressure 1: 112/70 Code: 8480-6 [...] 1: 118/64 Code: 8480-6 BMI: 29.7 Code: 04151-1 Heart Rate 1: 100 bpm Height: 5'6" Respiratory Rate: 22 bpm SpO2: 95% Tempera ture: 36.7 (C) / 98.0 (F) Weight: 187 lbs 02/27/2017 Blood Pressure 1: 132/76 Code: 8480-6 BMI: 30.8 Code: 20945-8 Heart Rate 1: 96 bpm Height: 5'6" Respiratory Rate: 22 bpm SpO2: 98% Tempera ture: 36.6 (C) / 97.8 (F) Weight: 194 lbs 03/31/2015 Blood Pressure 1: 128/90 Code: 8480-6 Heart Rate 1: 88 bpm Respiratory Rate: 20 bpm Temperature: 36.9 (C) / 98.4 (F) Weight: 192 lbs 01/07/2015 Blood Pressure 1: 132/80 Code: 8480-6 BMI: 30.2 Code: 89973-6 Heart Rate 1: 78 bpm Height: 5'6" Respiratory Rate: 22 bpm Temperature: 36 .7 (C) / 98.1 (F) Weight: 190 lbs 04/15/2014 Blood Pressure 1: 136/88 Code: 8480-6 BMI: 31.0 Code: 17898-8 Heart Rate 1: 84 bpm Height: 5'6" Respiratory Rate: 20 bpm Temperature: 36 .1 (C) / 97.0 (F) Weight: 192 lbs 12/10/2013 Blood Pressure 1: 142/90 Code: 8480-6 BMI: 29.1 Code: 31638-2 Heart Rate 1: 72 bpm Height: 5'7" Respiratory Rate: 20 bpm Temperature: 36 .6 (C) / 97.8 (F) Weight: 186 lbs 05/02/2013 Blood Pressure 1: 146/96 Code: 8480-6 BMI: 30.5 Code: 92695-0 Heart Rate 1: 88 bpm Height: 5'7" Respiratory Rate: 20 bpm Temperature: 37 .0 (C) / 98.6 (F) Weight: 195 lbs 01/02/2013 Blood Pressure 1: 132/84 Code: 8480-6 BMI: 30.2 Code: 74501-3 Heart Rate 1: 80 bpm Height: 5'7" Respiratory Rate: 20 bpm Temperature: 36 .9 (C) / 98.4 (F) Weight: 193 lbs 10/10/2011 Blood Pressure 1: 122/68 Code: 8480-6 BMI: 35.7 Code: 37366-7 Heart Rate 1: 84 bpm Height: 5'2" Temperature: 36.9 (C) / 98.5 (F) Weight: 195 lbs 08/12/2011 Blood Pressure 1: 110/80 Code: 8480-6 BMI: 36.9 Code: 81957-3 Heart Rate 1: 80 bpm Height: 5'2" Temperature: 36.4 (C) / 97.6 (F) Weight: 202 lbs 08/04/2011 Blood Pressure 1: 126/80 Code: 8480-6 BMI: 37.9 Code: 69741-4 Heart Rate 1: 76 bpm Height: 5'2" Respiratory Rate: 20 bpm Temperature: 37 .0 (C) / 98.6 (F) Weight: 207 lbs 05/24/2011 Blood Pressure 1: 122/82 Code: 8480-6 BMI: 37.7 Code: 83642-3 Heart Rate 1: 68 bpm Height: 5'2" Temperature: 36.7 (C) / 98.1 (F) Weight: 206 lbs 04/15/2011 Blood Pressure 1: 128/82 Code: 8480-6 BMI: 37.1 Code: 91039-0 Heart Rate 1: 68 bpm Height: 5'2" [...] 1: 106/62 Code: 8480-6 BMI: 36.8 Code: 70960-6 Heart Rate 1: 90 bpm Height: 5'2" SpO2: 94% Temperature: 36.4 (C) / 97.6 (F) Weight: 201 lbs 12/02/2010 Blood Pressure 1: 142/90 Code: 8480-6 BMI: 36.8 Code: 93257-1 Heart Rate 1: 96 bpm Height: 5'2" [...] Reason For Visit Effective Dates Notes rash 05/17/2019 follow up 01/25/2019 from abcess [...] success Encounters Encounter Performer Location Codes Date ([id number]) OFFICE/OUTPATIENT VISIT EST Diagnosis: Acute contact dermatitis[ICD10: L25.9] Diagnosis: Acute sinusitis[ICD10: J01.90] Sylvie Singh [email or web address] CPT-4: 42183 05/17/2019 ([id number]) OFFICE/OUTPATIENT VISIT EST Diagnosis: Acute gastritis without bleeding[ICD10: K29.00] Diagnosis: Essential (primary) hypertension[ICD10: I10] Diagnosis: Hyperlipidemia, unspecified[ICD10: E78.5] Azra BYRNE [email or web address] CPT-4: 47027 10/31/2018 ([id number]) OFFICE/OUTPATIENT VISIT EST Diagnosis: Acute gastritis without bleeding[ICD10: K29.00] Azra Phillips [email or web address] CPT-4: 69007 01/18/2018 ([id number]) OFFICE/OUTPATIENT VISIT EST Diagnosis: Hyperlipidemia, unspecified[ICD10: E78.5] Diagnosis: Essential (primary) hypertension[ICD10: I10] Diagnosis: Weakness[ICD10: R53.1] Diagnosis: Sebaceous cyst[ICD10: L72.3] Diagnosis: Idiopathic gout, unspecified site[ICD10: M10.00] Sylvie BYRNE [employer] [facility] CPT-4: 86584 03/29/2017 OFFICE/OUTPATIENT VISIT EST Diagnosis: Pain in right knee[ICD10: M25.561] Azra BYRNE [employer] [facility] CPT-4: 41220 03/13/2017 OFFICE/OUTPATIENT VISIT EST Diagnosis: Pain in right leg[ICD10: M79.604] Diagnosis: Sebaceous cyst[ICD10: L72.3] Azra BYRNE [employer] [facility] CPT-4: 42158 02/27/2017 OFFICE/OUTPATIENT VISIT EST Diagnosis: Local infection of the skin and subcutaneous tissue, unspecified[ICD10: L08.9] Diagnosis: Essential (primary) hypertension[ICD10: I10] Diagnosis: Hyperlipidemia, unspecified[ICD10: E78.5] Dagmar BYRNE [employer] [facility] CPT-4: 57463 03/31/2015 ([id number]) PREV VISIT EST AGE 40-64 Diagnosis: History of chest pain[ICD9: V13.89] Diagnosis: Right flank pain[ICD9: 789.09] Diagnosis: ROUTINE MEDICAL EXAM[ICD9: V70.0] Diagnosis: HYPERTENSION[ICD9: 401.9] Diagnosis: HYPERLIPIDEMIA NEC/NOS[ICD9: 272.4] Diagnosis: Colon polyps[ICD9: 211.3] Diagnosis: HEMATURIA NOS[ICD9: 599.70] Dagmar BYRNE [employer] [facility] CPT-4: 90271 01/07/2015 OFFICE/OUTPATIENT VISIT EST Diagnosis: COUGH[ICD9: 786.2] Diagnosis: Rectal itching[ICD9: 698.0] Dagmar BYRNE [employer] [facility] CPT-4: 21963 04/15/2014 ([id number]) OFFICE/OUTPATIENT VISIT EST Diagnosis: ROUTINE MEDICAL EXAM[ICD9: V70.0] Diagnosis: GOUT[ICD9: 274.9] Diagnosis: HYPERLIPIDEMIA NEC/NOS[ICD9: 272.4] Diagnosis: HYPERTENSION[ICD9: 401.9] Sylvie SILVERIO [facility] CPT-4: 02931 12/11/2013 ([id number]) OFFICE/OUTPATIENT VISIT EST Diagnosis: Shingles[ICD9: 053.9] Sylvie BYRNE [facility] CPT-4: 20663 12/10/2013 ([id number]) OFFICE/OUTPATIENT VISIT EST Diagnosis: HYPERTENSION[ICD9: 401.9] Diagnosis: Colon polyps[ICD9: 211.3] Diagnosis: Stress reaction[ICD9: 308.9] Sylvie BYRNE [facility] CPT-4: 64037 05/02/2013 ([id number]) OFFICE/OUTPATIENT VISIT EST Diagnosis: URINARY TRACT INFECTION[ICD9: 599.0] Sylvie ChapaFrancisco AGAPITO [facility] CPT-4: 51434 01/02/2013 OFFICE/OUTPATIENT VISIT EST Diagnosis: CELLULITIS OF TRUNK[ICD9: 682.2] Diagnosis: SPRAIN SHOULDER/ARM[ICD9: 840.9] Liza Ragsdale SYLVIE Alan BYRNE [facility] CPT-4: 50620 10/10/2011 ([id number]) OFFICE/OUTPATIENT VISIT EST Diagnosis: GOUT[ICD9: 274.9] Sylvie WILSONLINE SammiFrancisco [employer] [facility] CPT-4: 96228 09/15/2011 OFFICE/OUTPATIENT VISIT EST Diagnosis: DIARRHEA[ICD9: 787.91] Sylvie Yvanashwini SYLVIE SammiFrancisco HUONG Cagle [facility] CPT-4: 83761 08/12/2011 ([id number]) OFFICE/OUTPATIENT VISIT EST Diagnosis: GOUT[ICD9: 274.9] Diagnosis: Positive WENDI (antinuclear antibody)[ICD9: 795.79] Sylvie WILSONLINE SammiFrancisco AGAPITO [facility] CPT-4: 59983 08/04/2011 OFFICE/OUTPATIENT VISIT EST Diagnosis: Rash[ICD9: 782.1] Diagnosis: Joint pain[ICD9: 719.40] Diagnosis: Hyperlipidemia[ICD9: 272.4] Sylvie Kulkarni RENDER [facility] CPT-4: 34800 05/24/2011 OFFICE/OUTPATIENT VISIT EST Diagnosis: PHARYNGITIS, ACUTE[ICD9: 462] Diagnosis: COUGH[ICD9: 786.2] Diagnosis: SINUSITIS, ACUTE[ICD9: 461.9] Sylvie WILSONLINE SammiFrancisco AGAPITO MOLINA [facility] CPT-4: 04168 04/15/2011 OFFICE/OUTPATIENT VISIT EST Diagnosis: Clavicle fracture[ICD9: 810.00] Sylvie WILSONLINE SammiFrancisco AGAPITO MOLINA [facility] CPT-4: 51822 01/13/2011 OFFICE/OUTPATIENT VISIT EST Diagnosis: Clavicle pain[ICD9: 719.41] Sylvie WILSONLINE SammiFrancisco Shad RENDER [facility] CPT-4: 27750 12/23/2010 OFFICE/OUTPATIENT VISIT EST Diagnosis: Arm pain[ICD9: 729.5] Diagnosis: SPASM OF MUSCLE[ICD9: 728.85] Diagnosis: Neck pain[ICD9: 723.1] Sylvie Santorohenrikchris SYLVIE SammiFrancisco HUONG Cagle [facility] CPT-4: 56422 12/15/2010 OFFICE/OUTPATIENT VISIT EST Diagnosis: HYPERTENSION[ICD9: 401.9] Diagnosis: PHARYNGITIS, ACUTE[ICD9: 462] Diagnosis: MALAISE AND FATIGUE[ICD9: 780.79] Diagnosis: GOUT[ICD9: 274.9] Sylvie Yvanashwini JAUREGUISYLVIE SammiFrancisco AGAPITO MOLINA [facility] CPT-4: 83567 12/02/2010 ([id number]) OFFICE/OUTPATIENT VISIT, EST Sylvie Yvanashwini JAUREGUI GUICHIQUITA SammiFrancisco AGAPITO MOLINA [facility] CPT-4: 38926 04/19/2010 ([id number]) OFFICE/OUTPATIENT VISIT, EST Sylvie Yvanashwini BELLAMY SammiFrancisco AGAPITO MOLINA [facility] CPT-4: 77721 04/14/2010 ([id number]) OFFICE/OUTPATIENT VISIT, EST Sylvie BELLAMY SammiFrancisco AGAPITO MOLINA [facility] CPT-4: 10995 09/01/2009 Plan of Care Planned Activity Notes Codes Status Date Visit Diagnosis Plan: Acute contact dermatitis Discuss ion: Kenalog 40mg IM now Cover with [employer] Call in 1week on how doing Medrol Dose Pack ICD-9 : 692.9 ICD-10 : L25.9 05/17/2019 Patient Education: Medrol (Nicholas)- [employer] Coupon [phone] https://www.[address] [employer]/resources/getResource/[email or web address] Completed 05/17/2019 Visit Diagnosis Plan: Abscess of chest wall Discussion : patient has large amount of induration still noted despite recent drainage and antibiotics. dr. najera's office was called and they were able to see patient today. patient was sent over there for possible surgery. ICD-9 : 682.2 ICD-10 : L02.213 01/25/2019 Appointment: Azra Bradley [address] [place] [address] FOLLOW UP 01/25/2019 Visit Diagnosis Plan: Abscess [...] ICD-10 : L02.213 01/23/2019 Appointment: Azra Bradley [address] [place], [place] [phone] Patient called 01/21/19 to confimr 01/23 appt OF FICE SURGERY 01/23/2019 Patient Education: clindamycin HCl- [employer] Coupon [phone] https://www.[email or web address] [employer]/resources/getResource/[email or web address] Completed 01/23/2019 Appointment: Azra Bradley [address] [place], [place] [phone] CANCELED 01/16/2019 Visit Diagnosis Plan: Acute gastritis [...] ICD-10 : E78.5 10/31/2018 Appointment: Azra Bradley [address] [place], [place] [phone] ACUTE ILLNESS 10/31/2018 Patient Education: High Blood [...] ICD-10 : K29.00 01/18/2018 Appointment: Azra Bradley [address] [place], [place] [phone] ACUTE ILLNESS 01/18/2018 Patient Education: Patient Medication Summary Completed 01/18/2018 Appointment: Sylvie Byrne WPtel: [phone] [facility] US LAB 03/29/2017 Patient Education: Patient Medication [...] ICD-10 : L72.3 03/15/2017 Appointment: Azra Bradley [address] [place], [place] [id number] OFFICE SURGERY 03/15/2017 Patient Education: Patient Medication [...] ICD-10 : M25.561 03/13/2017 Appointment: Azra Bradley [address] [place] [address] ACUTE ILLNESS 03/13/2017 Patient Education: Patient Medication Summary Completed 03/13/2017 Care Plan: X-RAY EXAM OF KNEE 1 OR 2 [place] : 68[address]-2 Pending 03/13/2017 Visit Diagnosis Plan: Pain in [...] ICD-10 : L72.3 02/27/2017 Appointment: Azra Bradley [address] [place] [address] ACUTE ILLNESS 02/27/2017 Patient Education: Patient Medication Summary Completed 02/27/2017 Appointment: Katerina Sousa WPtel: [address] [place], [place] [phone] ACUTE ILLNESS 08/21/2015 Visit Plan: Has been [...] back. 03/31/2015 Appointment: Dagmar Ahmadi WPtel: [phone] [facility] 03/30 Confirmed ~sl FOLLOW UP 03/31/2015 Patient [...] - Candido 01/07/2015 Appointment: Dagmar Ahmadi WPtel: [address] [place] [address] 01/06 appointment confirmed cn Annual Well Visit 01/07/2015 Patient Education: Patient Medication Summary Completed 01/07/2015 Patient Education: [facility] - Saving [employer] - Lisinopril - 18-64 - Dynamic Portal ID Completed 01/07/2015 Appointment: Sylvie Byrne WPtel: [address] [place] [address] ACUTE ILLNESS 08/26/2014 Appointment: Dagmar Ahmadi WPtel: [address] [place] [address] ACUTE ILLNESS 04/15/2014 Patient Education: Patient Medication Summary Completed 04/15/2014 Appointment: Sylvie Byrne WPtel: [address] [place] [address] LAB 12/11/2013 Patient Education: Patient Medication Summary Completed 12/11/2013 Visit Plan: Check CBC, CMP, TSH, Free T4 , Lipids, uric acid, PSA--pt will return in AM for fasting lab Finish acyclovir Discussed Zostavax down road 12/10/2013 Appointment: Sylvie Byrne WPtel: [address] [place], [place] [phone] 12/06 left message FOLLOW UP 12/10/2013 Patient Education: Patient Medication Summary Completed 12/10/2013 Visit Plan: Lisinopril 20mg daily Stress Reducers and trial of fluoxetine 10mg q am Proceed with colonoscopy Check fasting lab 05/02/2013 Appointment: Sylvie Byrne WPtel: [address] [place] [address] ACUTE ILLNESS 05/02/2013 Patient Education: Patient Medication Summary Completed 05/02/2013 Appointment: Sylvie Byrne WPtel: [address] [place] [address] ACUTE ILLNESS 01/02/2013 Patient Education: Patient Medication Summary Completed 01/02/2013 Appointment: Liza Ragsdale WPtel: [address] [place] [address] ACUTE ILLNESS 10/10/2011 Patient Education: Patient Medication Summary Completed 10/10/2011 Appointment: Sylvie Byrne WPtel: [address] [place] [address] US LAB 09/15/2011 Patient Education: Patient Medication [...] Will seek re-eval if symptoms worsen or 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 08/12/2011 Appointment: Liza Ragsdale WPtel: [address] [place] [address] ACUTE ILLNESS 08/12/2011 Patient Education: Patient Medication Summary Completed 08/12/2011 Visit Plan: Continue increased dose of a llopurinol and daily colcrys Recheck thyroid lab, uric acid and PSA in 3mos Will hold on NSAID at this time due to history of GERD 08/04/2011 Appointment: Sylvie Byrne WPtel: [address] [place] [address] FOLLOW UP 08/04/2011 Patient Education: Patient Medication Summary Completed 08/04/2011 Appointment: Sylvie Byrne WPtel: [address] [place], [place] [phone] US LAB 07/28/2011 Patient Education: Patient Medication Summary Completed 07/28/2011 Appointment: Sylvie Byrne WPtel: [address] [place], [place] [phone] US LAB 05/25/2011 Patient Education: Patient Medication [...] at night. 05/24/2011 Appointment: Liza Ragsdale WPtel: [address] [place] [address] ACUTE ILLNESS 05/24/2011 Patient Education: Patient Medication Summary Completed 05/24/2011 Visit Plan: codeine/guif cough syrup and cefdinir are phoned to [facility]. Discussed fluids and rest. Pt. will notify if symptoms persist or worsen. 04/15/2011 Appointment: Liza Ragsdale WPtel: [address] [place] [address] ACUTE ILLNESS 04/15/2011 Patient Education: Patient Medication Summary Completed 04/15/2011 Appointment: Sylvie Byrne WPtel: [address] [place], [place] [phone] [place] LAB 02/01/2011 Patient Education: Patient Medication Summary Completed 02/01/2011 Visit Plan: Repeat clavicle x-ray in 6wk s Check bone density 01/13/2011 Appointment: Sylvie Byrne WPtel: [address] [place] [address] FOLLOW UP 01/13/2011 Patient Education: Patient Medication Summary Completed 01/13/2011 Visit Plan: Check right clavicle and alda ulder x-ray Continue Vimovo and flexeril 12/23/2010 Appointment: Sylvie Byrne WPtel: [address] [place], [place] [phone] FOLLOW UP 12/23/2010 Patient Education: Patient Medication Summary Completed 12/23/2010 Appointment: Sylvie Byrne WPtel: [address] [place], [place] [phone] ER Follow UP 12/15/2010 Patient Education: Patient [...] BP check. 12/02/2010 Appointment: Liza Ragsdale WPtel: [address] [place] [address] ACUTE ILLNESS 12/02/2010 Patient Education: Patient Medication Summary Completed 12/02/2010 Care Plan: ASSAY OF BLOOD/URIC ACID Pendi ng 12/02/2010 Care Plan: VCA AB G/M Pending 2010 Care Plan: EB GARY AG Pending 2010 Care Plan: EB NUCL AB Pending 2010 Appointment: Sylvie Byrne WPtel: [address] [place], [place] [phone] FOLLOW UP 11/18/2010 Visit Plan: benadryl 25 mg tab QHS. 12.5 mg tab every 8 hrs during the day. Pt. will notify if symptoms worsen. No facial edema present. 04/19/2010 Appointment: Liza Ragsdale WPtel: [address] [place], [place] [phone] [place] FOLLOW UP 04/19/2010 Patient Education: Patient [...] no improvement. 04/14/2010 Appointment: Liza Ragsdale WPtel: [address] [place], [place] [phone] ACUTE ILLNESS 04/14/2010 Patient Education: Patient Medication Summary Completed 04/14/2010 Appointment: Liza Ragsdale WPtel: [address] [place], [place] [phone] ACUTE ILLNESS 03/12/2010 Appointment: Sylvie Byrne WPtel: [phone] [address] [place], [place] [id number] US LAB 09/14/2009 Patient Education: Patient Medication Summary Completed 09/14/2009 Appointment: Sylvie Byrne WPtel: [address] [place], [place] [id number] 09/01/2009 Patient Education: Patient Medication [...] 100 mg Ciprofloxacin 500 mg [facility] [place] . Check CBC, CMP, TSH, Free T4, [...] seek re- eval if symptoms worsen or 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 . Continue increased dose [...] [facility] Discuss[facility] fluids and rest. Pt. [...]
--- OUTSIDE RECORDS SUMMARY | 2019-10-17 10:37 | XMS REPORT | CCD ---
Author Author Renan Byrne D.O. Organization [facility] Address [address] [place] [address] Phone Care Team Providers Care Poacher Operator Name Role Phone Sylvie Byrne D.O., PP Unavailable CCM Unavailable Summary Purpose Interface Exchange Insurance Providers Payer name Policy type / Coverage type Covered constitution party ID Effective Begin Date Effective End Date WPS MEDICARE PART B [place] Medicare Part B [id number] Unknown [facility] Medicare Part B [id number] Unknown Family History Family History data not found Social History Social History Element Codes Description Effective Dates Tobacco history SNOMED CT: 735781439 Nonsmoker 12/02/2010 Allergies, Adverse Reactions, Alerts Substance [...] Fill Instructions prednisone 20 mg tablet RxNorm: 793130 1 Tablet(s) Oral two latonia es a day 05/31/2019 06/05/2019 Active Elimite 5 % topical cream RxNorm: 641869 Application To pical QPM from head to toe 05/17/2019 07/16/2019 Active Medrol (Nicholas) 4 mg tablets in a dose pack RxNorm: 339260 6 Tablet(s) Oral QD --then as directed 05/17/2019 05/23/2019 Inactive Osteo Bi-Flex 250 mg-200 mg tablet RxNorm: 961538 2 Tablet(s) O ral QD 01/23/2019 No Stop Date Active clindamycin HCl 300 mg capsule RxNorm: 102556 2 Capsule (s) Oral three times a day 01/23/2019 01/30/2019 Inactive Flagyl 500 mg tablet RxNorm: 938619 1 Tablet(s) PO BID 10/31/2018 Inactive lisinopril 20 mg tablet RxNorm: 688672 1 Tablet(s) PO QD for bl ood pressure 09/13/2018 12/11/2018 Inactive allopurinol 100 mg tablet RxNorm: 028983 1 Tablet(s) PO QD 09/14/19 19 12/11/2018 Inactive Flagyl 500 mg tablet RxNorm: 006484 1 Tablet(s) PO BID 01/18/2018 Inactive Cipro 250 mg tablet RxNorm: 344059 1 Tablet(s) PO BID 01/18/201801/08 Inactive lisinopril 20 mg tablet RxNorm: 520752 1 Tablet(s) PO QD for bl ood pressure 11/06/2017 02/03/2018 Inactive allopurinol 100 mg tablet RxNorm: 914612 1 Tablet(s) PO QD 11/07/19 18 02/03/2018 Inactive allopurinol 100 mg tablet RxNorm: 457277 1 Tablet(s) PO QD 04/11/19 18 10/07/2017 Inactive lisinopril 20 mg tablet RxNorm: 393940 1 Tablet(s) PO QD for bl ood pressure 04/07/2017 11/05/2017 Inactive prednisone 20 mg tablet RxNorm: 215893 2 Tablet(s) PO QD 03/15/2017 1 05/18/2016 Inactive tramadol 50 mg tablet RxNorm: 562610 1-2 Tablet(s) PO TID as needed 03/13/2017 08/06/2017 Inactive Medrol (Nicholas) 4 mg tablets in a dose pack RxNorm: 413204 Tablet(s) PO As Directed 02/28/2017 08/01/2017 Inactive allopurinol 100 mg tablet RxNorm: 096904 1 Tablet(s) PO QD 04/11/19 17 04/11/2017 Inactive lisinopril 20 mg tablet RxNorm: 765405 1 Tablet(s) PO QD for bl ood pressure 04/11/2016 04/07/2017 Inactive pravastatin 20 mg tablet RxNorm: 887632 1 Tablet(s) PO QD 01/13/2016 02/26/2017 Inactive pravastatin 20 mg tablet RxNorm: 268903 TAKE 1 TABLET DAILY 016 01/13/2016 Inactive pravastatin 40 mg tablet RxNorm: 598525 1 Tablet(s) PO QD 03/31/2015 03/31/2015 Inactive pravastatin 20 mg tablet RxNorm: 392569 1 Tablet(s) PO QD 03/31/2015 06/28/2015 Inactive doxycycline hyclate 100 mg capsule RxNorm: 9310112 1 Capsule(s) PO BID 03/31/2015 04/09/2015 Inactive mupirocin 2 % topical ointment RxNorm: 995405 Apply TOP BID to affected lesions 03/31/2015 08/01/2017 Inactive pravastatin 40 mg tablet RxNorm: 617506 1 Tablet(s) PO QD 01/08/2015 03/30/2015 Inactive lisinopril 20 mg tablet RxNorm: 696687 1 Tablet(s) PO QD for bl ood pressure 01/07/2015 12/31/2015 Inactive allopurinol 100 mg tablet RxNorm: 600208 1 Tablet(s) PO QD 01/08/20 15 04/10/2016 Inactive ciprofloxacin 500 mg tablet RxNorm: 491358 1 Tablet(s) PO BID 01/0701/13/2015 Inactive doxycycline hyclate 100 mg capsule RxNorm: 2464091 1 Capsule(s) PO BID 04/15/2014 04/24/2014 Inactive fluoxetine 10 mg capsule RxNorm: 100502 1 Capsule(s) PO QAM 014 04/14/2014 Inactive lisinopril 20 mg tablet RxNorm: 744530 1 Tablet(s) PO QD for bl ood pressure 05/02/2013 04/26/2014 Inactive Cipro 500 mg tablet RxNorm: 172927 1 Tablet(s) PO BID 01/02/201312/10 Inactive Cipro 500 mg tablet RxNorm: 507651 1 Tablet(s) PO BID 01/02/20130 04/2012 Inactive doxycycline hyclate 100 mg Cap RxNorm: 559269 1 Capsule(s) PO BID 0 10/10/2011 10/19/2011 Inactive Culturelle 10 billion cell Cap RxNorm: 430028 1 Capsule(s) PO BID 0 08/12/2011 09/10/2011 Inactive Colcrys 0.6 mg Tab RxNorm: 028673 1 Tablet(s) PO BID 08/04/201111/30 Inactive allopurinol 100 mg Tab RxNorm: 973346 1 Tablet(s) PO BID 07/13/2011 0 08/03/2011 Inactive clotrimazole-betamethasone 1 %-0.05 % Topical Cream RxNorm: 311845 1 Application TOP BID 06/10/2011 06/23/2011 Inactive clotrimazole-betamethasone 1 %-0.05 % Topical Cream RxNorm: 755486 1 Application TOP BID 05/24/2011 06/06/2011 Inactive Colcrys 0.6 mg Tab RxNorm: 922305 1 Tablet(s) PO BID 05/24/201108/02 Inactive cefdinir 300 mg Cap RxNorm: 563475 1 Capsule(s) PO BID 04/15/2011 Inactive Daypro 600 mg Tab RxNorm: 718633 1 Tablet(s) PO BID 12/15/20102010 Inactive for pain Medrol (Nicholas) 4 mg Tabs in a Dose Pack RxNorm: 503381 Tablet(s) PO 0 12/09/2010 12/15/2010 Inactive as directed Colcrys 0.6 mg Tab RxNorm: 735620 1 Tablet(s) PO BID 12/06/201001/04 Inactive lisinopril-hydrochlorothiazide 20 mg-12.5 mg Tab RxNorm: 197 886 1 Tablet(s) PO QAM 12/02/2010 01/30/2011 Inactive ranitidine 150 mg tablet RxNorm: 3802287 1 Tablet(s) PO BID Pt will phone before filing this script. 04/14/2010 05/13/2010 Inactive allopurinol 100 mg Tab RxNorm: 479598 1 Tablet(s) PO BID 09/16/2009 0 11/14/2009 Inactive lisinopril-hydrochlorothiazide 20 mg-12.5 mg Tab RxNorm: 197 886 1 Tablet(s) PO QAM 06/23/2009 08/31/2009 Inactive ibuprofen 200 mg tablet RxNorm: 743060 4 Tablet(s) PO QAM No Start Da te Active Zithromax Z-Nicholas 250 mg Tab RxNorm: 050861 Tablet(s) PO as direc tenzin No Start Date 01/12/2011 Inactive Ultram Oral RxNorm: Oral No Start Date 01/01/2013 Inactive allopurinol 100 mg tablet RxNorm: 615881 1 Tablet(s) PO QD No Start Date 01/06/2015 Inactive pravastatin 40 mg tablet RxNorm: 206981 1 Tablet(s) PO QD No Start Date 01/07/2015 Inactive Naprosyn 500 mg tablet RxNorm: 920305 1 Tablet(s) PO BID No Start D ate 05/01/2013 Inactive azithromycin 250 mg tablet RxNorm: 844566 2 Tablet(s) P O QD take 2 tablets (500 mg) by oral route once daily for 1 day then 1 tablet (250 mg) by oral route once daily for 4 days No Start Date 01/12/2011 Inactive allopurinol 300 mg Tab RxNorm: 427969 1 Tablet(s) PO QD No Start Da te 01/01/2013 Inactive Colcrys 0.6 mg tablet RxNorm: 309465 1 Tablet(s) PO BID No Start Da te 05/01/2013 Inactive Medrol (Nicholas) 4 mg tablets in a dose pack RxNorm: 757849 Tablet(s) PO As Directed No Start Date 02/27/2017 Inactive hydrocodone 5 mg-acetaminophen 325 mg tablet RxNorm: 255822 1 Tablet(s) PO Q4H as needed for pain No Start Date 12/09/2013 Inactive ranitidine 150 mg Tab RxNorm: 7678647 1 Tablet(s) PO BID No Start D ate 04/13/2010 Inactive Allopurinol 100 mg Tab RxNorm: 787569 1 Tablet(s) PO BID No Start D ate 09/15/2009 Inactive coenzyme Q10 200 mg capsule RxNorm: 661770 1 Capsule(s) PO QD No St art Date 03/30/2015 Inactive Mobic 7.5 mg tablet RxNorm: 619166 1 Tablet(s) PO QD No Start Date Inactive Osteo Bi-Flex (5-Loxin) 1,500 mg-400 unit-100 mg tablet RxNo rm: 1 Tablet(s) PO BID No Start Date 03/30/2015 Inactive hydrocodone-acetaminophen 7.5 mg-325 mg Tab RxNorm: 122482 1-2 Tablet(s) PO Q4-6H No Start Date 08/03/2011 Inactive as needed for pa in Neurontin 300 mg capsule RxNorm: 878789 1 Capsule(s) PO QD No Start Date 12/09/2013 Inactive Medrol (Nicholas) 4 mg Tabs in a Dose Pack RxNorm: 078112 Tablet(s) PO N o Start Date 12/08/2010 Inactive as directed Vitamin D2 1,000 unit capsule RxNorm: 916339 1 Capsule(s) PO QD No Start Date 03/30/2015 Inactive Flexeril 10 mg Tab RxNorm: 121671 1 Tablet(s) PO TID No Start Date Inactive for spasm Medication Administered No Medication Administered data Immunizations No Immunization data Results Observation Observation Code Item Item Code Result Date S ervice Location C DIFF MOL [id number] C Diff Mol Int Negative 11/02/2018 Unk nown C Diff An [id number] C Diff Analyzer Indeterminate 9 Unknown GFR CALC 6148541 GFR Non Afr Amr >60 mL/min 11/01/2018 Un known GFR CALC 3704514 GFR Afr Amr >60 mL/min 11/01/[address] LDL 7169579 HDL CHOLESTEROL 46 mg/dL 11/01/[address] LDL 6170225 Cholesterol 198 mg/dL 11/01/[address] LDL 3139897 Triglyceride 104 mg/dL 11/01/[address] LDL 6459190 LDL Direct 158 mg/dL 11/01/[address] LDL 6559635 NON-HDL Chol 152 mg/dL 11/01/2018 Unkno wn THYROID STIMULATING HORMONE 27634 TSH 1.276 uIU/mL 11/01/2018 Unknown COMPREHENSIVE METABOLIC 40547 AST 22 U/L 2018 Unknown COMPREHENSIVE METABOLIC 87393 ALT 17 U/L 2018 Unknown COMPREHENSIVE METABOLIC 15393 BUN 16 mg/dL 2018 Unknown COMPREHENSIVE METABOLIC 65736 ALBUMIN 4.3 g/dL 2018 Unknown COMPREHENSIVE METABOLIC 74085 CHLORIDE 103 mmol/L 11/01 Unknown COMPREHENSIVE METABOLIC 32294 Bili Total 0.9 mg/dL 11/01 Unknown COMPREHENSIVE METABOLIC 70244 ALK PHOS 62 U/L 2018 Unknown COMPREHENSIVE METABOLIC 20727 SODIUM 138 mmol/L 11/01 Unknown COMPREHENSIVE METABOLIC 50853 CREATININE 0.87 mg/dL 10/09 Unknown COMPREHENSIVE METABOLIC 37716 CALCIUM 9.2 mg/dL 2018 Unknown COMPREHENSIVE METABOLIC 08802 POTASSIUM 4.1 mmol/L 11/01 Unknown COMPREHENSIVE METABOLIC 44931 Total Protein 7.2 g/dL Unknown COMPREHENSIVE METABOLIC 41244 Glucose 81 mg/dL 2018 Unknown COMPREHENSIVE METABOLIC 28493 Bicarbonate 18 mmol/L 10/09 Unknown COMPREHENSIVE METABOLIC 06309 AGAP 17 mmol/L 2018 Unknown COMPLETE BLOOD COUNT 8459091 WBC 8.8 10e9/L 11/02/19 19 Unknown COMPLETE BLOOD COUNT 3850488 RBC 4.54 10e12/L 2018 Unknown COMPLETE BLOOD COUNT 1399549 HEMOGLOBIN 14.4 g/dL 11/02/19 19 Unknown COMPLETE BLOOD COUNT 0772292 HEMATOCRIT 44.0 % 11/02/19 19 Unknown COMPLETE BLOOD COUNT 4698096 MCV 96.9 fL 9 Unknown COMPLETE BLOOD COUNT 2844299 MCH 31.7 pg 9 Unknown COMPLETE BLOOD COUNT 9902252 MCHC 32.7 g/dL 9 Unknown COMPLETE BLOOD COUNT 2629534 PLATELET COUNT 239 10e9/L Unknown COMPLETE BLOOD COUNT 4221258 Mean Plt Volume 10.5 fL Unknown COMPLETE BLOOD COUNT 5073977 NRBC Absolute 0.00 10e9/L Unknown COMPLETE BLOOD COUNT 4107475 Neut Auto 65.2 % 9 Unknown COMPLETE BLOOD COUNT 7028866 NRBC/100 WBC 0.0 2018 Unknown COMPLETE BLOOD COUNT 5604602 Lymph Auto 23.1 % 11/02/19 19 Unknown COMPLETE BLOOD COUNT [id number] [place] Auto 9.5 % 9 Unknown COMPLETE BLOOD COUNT 7091551 RDW 12.2 % 9 Unknown COMPLETE BLOOD COUNT 5066715 Eos Auto 1.7 % 9 Unknown COMPLETE BLOOD COUNT 8256746 Baso Auto 0.3 % 9 Unknown COMPLETE BLOOD COUNT 6576061 Neutrophil Abs 5.73 10e9/L Unknown COMPLETE BLOOD COUNT 8145990 Imm Gran Auto 0.2 % 11/01 Unknown COMPLETE BLOOD COUNT 1071976 Lymphocyte Abs 2.03 10e9/L Unknown COMPLETE BLOOD COUNT [id number] Monocyte Abs 0.84 10e9/L 10/09 Unknown COMPLETE BLOOD COUNT [id number] Eosinophil Abs 0.15 10e9/L Unknown COMPLETE BLOOD COUNT 1198215 RDW-SD 43.4 fL 9 Unknown COMPLETE BLOOD COUNT [id number] Basophil Abs 0.03 10e9/L 10/09 Unknown COMPLETE BLOOD COUNT [id number] Imm Gran Abs 0.02 10e9/L 10/09 Unknown COMPREHENSIVE METABOLIC 48801 AST 17 U/L 2016 Unknown COMPREHENSIVE METABOLIC 64029 ALT 16 U/L 2016 Unknown COMPREHENSIVE METABOLIC 05537 BUN 15 mg/dL 2016 Unknown COMPREHENSIVE METABOLIC 11433 ALBUMIN 4.4 g/dL 2016 Unknown COMPREHENSIVE METABOLIC 67777 CHLORIDE 104 mmol/L 03/29 Unknown COMPREHENSIVE METABOLIC 07929 Bili Total 0.5 mg/dL 03/29 Unknown COMPREHENSIVE METABOLIC 49189 ALK PHOS 56 U/L 2016 Unknown COMPREHENSIVE METABOLIC 52940 SODIUM 139 mmol/L 03/29 Unknown COMPREHENSIVE METABOLIC 70291 CREATININE 0.88 mg/dL 03/11 Unknown COMPREHENSIVE METABOLIC 60947 CALCIUM 9.8 mg/dL 2016 Unknown COMPREHENSIVE METABOLIC 30367 POTASSIUM 4.2 mmol/L 03/29 Unknown COMPREHENSIVE METABOLIC 61605 Total Protein 6.8 g/dL Unknown COMPREHENSIVE METABOLIC 69636 Glucose 100 mg/dL 2016 Unknown COMPREHENSIVE METABOLIC 19340 Bicarbonate 30 mmol/L 03/11 Unknown COMPREHENSIVE METABOLIC 40692 AGAP 5 mmol/L 2016 Unknown THYROID STIMULATING HORMONE 48462 TSH 1.077 uIU/mL 03/29/2017 Unknown URIC ACID 06528 URIC ACID 5.2 mg/dL 03/29/2017 Unknown FREE T4 31817 T4 Free 1.04 ng/dL 03/29/2017 Unknown ERYTHROCYTE SEDIMENTATION RATE 82715 Sed Rate 21 mm/hr 03/29/2017 Unknown COMPLETE BLOOD COUNT 6577294 WBC 5.9 10e9/L 03/29/20 17 Unknown COMPLETE BLOOD COUNT 3837150 RBC 4.52 10e12/L 2016 Unknown COMPLETE BLOOD COUNT 5050398 HEMOGLOBIN 14.6 g/dL 03/29/20 17 Unknown COMPLETE BLOOD COUNT 8784127 HEMATOCRIT 44.7 % 03/29/20 17 Unknown COMPLETE BLOOD COUNT 1134707 MCV 98.9 fL 7 Unknown COMPLETE BLOOD COUNT 1414100 MCH 32.3 pg 7 Unknown COMPLETE BLOOD COUNT 2207497 MCHC 32.7 g/dL 7 Unknown COMPLETE BLOOD COUNT 2445511 PLATELET COUNT 262 10e9/L Unknown COMPLETE BLOOD COUNT 1514795 Mean Plt Volume 10.1 fL Unknown COMPLETE BLOOD COUNT 7068099 Neut Auto 44.2 % 7 Unknown COMPLETE BLOOD COUNT 0917467 Lymph Auto 41.5 % 03/29/20 17 Unknown COMPLETE BLOOD COUNT 7613666 [place] Auto 11.2 % 7 Unknown COMPLETE BLOOD COUNT 1081567 RDW 12.3 % 7 Unknown COMPLETE BLOOD COUNT 6209241 Eos Auto 2.6 % 7 Unknown COMPLETE BLOOD COUNT 0521666 Baso Auto 0.5 % 7 Unknown COMPLETE BLOOD COUNT 0155035 Neutrophil Abs 2.61 10e9/L Unknown COMPLETE BLOOD COUNT 9318931 Lymphocyte Abs 2.45 10e9/L Unknown COMPLETE BLOOD COUNT 4508389 Monocyte Abs 0.66 10e9/L 03/11 Unknown COMPLETE BLOOD COUNT 6889030 Eosinophil Abs 0.15 10e9/L Unknown COMPLETE BLOOD COUNT 5417315 RDW-SD 43.7 fL 7 Unknown COMPLETE BLOOD COUNT 5166950 Basophil Abs 0.03 10e9/L 03/11 Unknown LIPID GROUP 69308 Cholesterol 248 mg/dL 03/29/2017 Unkno wn LIPID GROUP 49660 Triglyceride 87 mg/dL 03/29/2017 Unkn own LIPID GROUP 62508 HDL CHOLESTEROL 49 mg/dL 03/29/2017 U nknown LIPID GROUP 68337 Chol/HDL Ratio 5.06 ratio 03/29/2017 U nknown LIPID GROUP 92687 NON-HDL Chol 199 mg/dL 03/29/2017 Unkn own LIPID GROUP 14693 LDL Cholesterol 182 mg/dL 03/29/2017 U nknown GFR CALC 3895505 GFR Non Afr Amr >60 mL/min 03/29/2017 Un known GFR CALC 7157530 GFR Afr Amr >60 mL/min 03/29/2017 Unknow n HIV AG/AB 8333585 HIV Ag/Ab Non-Reactive 03/15/2017 Unkno wn VIRAL HEPATITIS PROFILE #2 04847 Hep A IgM Non-Reactive 03/15/2017 Unknown VIRAL HEPATITIS PROFILE #2 39986 Hep B Core IgM Non-Reac tive 03/15/2017 Unknown VIRAL HEPATITIS PROFILE #2 97011 Hepatitis C Ab Non-Reac tive 03/15/2017 Unknown VIRAL HEPATITIS PROFILE #2 44291 Hep Bs Ag Non-Reactive 03/15/2017 Unknown COMPREHENSIVE METABOLIC 97886 AST 23 U/L 2014 Unknown COMPREHENSIVE METABOLIC 53698 ALT 21 IU/L 2014 Unknown COMPREHENSIVE METABOLIC 38690 BUN 13 MG/DL 2014 Unknown COMPREHENSIVE METABOLIC 88377 ALBUMIN 4.3 GM/DL 2014 Unknown COMPREHENSIVE METABOLIC 98987 CHLORIDE 105 MMOL/L 01/07 Unknown COMPREHENSIVE METABOLIC 54100 BILI TOT 0.7 MG/DL 2014 Unknown COMPREHENSIVE METABOLIC 41604 ALK PHOS 51 U/L 2014 Unknown COMPREHENSIVE METABOLIC 17276 SODIUM 139 MMOL/L 01/07 Unknown COMPREHENSIVE METABOLIC 75558 CREATININE 0.85 MG/DL 12/11 Unknown COMPREHENSIVE METABOLIC 63614 CALCIUM 9.5 MG/DL 2014 Unknown COMPREHENSIVE METABOLIC 85483 POTASSIUM 4.4 MMOL/L 01/07 Unknown COMPREHENSIVE METABOLIC 44072 PROT TOT 6.7 GM/DL 2014 Unknown COMPREHENSIVE METABOLIC 64719 Glucose 100 MG/DL 2014 Unknown COMPREHENSIVE METABOLIC 67224 BICARB 27 MMOL/L 2014 Unknown COMPREHENSIVE METABOLIC 84769 ANION GAP 7 MEQ/L 2014 Unknown THYROID STIMULATING HORMONE 18639 TSH 0.900 uIU/ML 01/07/2015 Unknown COMPLETE BLOOD COUNT 8306444 WBC 4.9 10e9/L 01/08/20 15 Unknown COMPLETE BLOOD COUNT 9339751 RBC 4.71 10e12/L 2014 Unknown COMPLETE BLOOD COUNT 4525110 HGB 15.3 g/dL 5 Unknown COMPLETE BLOOD COUNT 9845708 HCT DET 46.1 % 5 Unknown COMPLETE BLOOD COUNT 1102560 MCV 97.9 fL 5 Unknown COMPLETE BLOOD COUNT 4055447 MCH 32.5 pg 5 Unknown COMPLETE BLOOD COUNT 4566886 MCHC 33.2 g/dL 5 Unknown COMPLETE BLOOD COUNT 6594007 PLT 227 10e9/L 01/08/20 15 Unknown COMPLETE BLOOD COUNT 8306318 MPV 10.9 fL 5 Unknown COMPLETE BLOOD COUNT 5123511 VERON[place] % 53.0 % 5 Unknown COMPLETE BLOOD COUNT 8937687 LY % 35.8 % 5 Unknown COMPLETE BLOOD COUNT 5705663 MON % 8.6 % 5 Unknown COMPLETE BLOOD COUNT 0379860 EOS % 2.2 % 5 Unknown COMPLETE BLOOD COUNT 7584326 BASO % 0.4 % 5 Unknown COMPLETE BLOOD COUNT 0859390 RDW 12.9 % 5 Unknown COMPLETE BLOOD COUNT 8425004 ABS VERONIQUE 2.60 10e9/L 015 Unknown COMPLETE BLOOD COUNT 2135251 ABS LYMPH 1.75 10e9/L 015 Unknown COMPLETE BLOOD COUNT 5212334 ABS MONO 0.42 10e9/L 015 Unknown COMPLETE BLOOD COUNT 8802646 ABS EOS 0.11 10e9/L 015 Unknown COMPLETE BLOOD COUNT 4605455 ABS BASO 0.02 10e9/L 015 Unknown COMPLETE BLOOD COUNT 3181933 RDW-SD 45.7 fL 5 Unknown URIC ACID 89658 URIC ACID 6.7 MG/DL 01/07/2015 Unknown LIPID GROUP 88147 HDL TEST 52 MG/DL 01/07/2015 Unknown LIPID GROUP 29859 TRIG 158 MG/DL 01/07/2015 Unknown LIPID GROUP 37569 TEST LDL 157 MG/DL 01/07/2015 Unknown LIPID GROUP 20081 CHOL 241 MG/DL 01/07/2015 Unknown LIPID GROUP 00056 RCHOL/HDL 4.63 RATIO 01/07/2015 Unknow n LIPID GROUP 65654 NON-HDL CH 189 MG/DL 01/07/2015 Unknow n GFR CALC 6104071 GFR AA >60 ML/MIN 01/07/2015 Unknown GFR CALC 5377863 GFR NON-AA >60 ML/MIN 01/07/2015 Unknown PSA EQUIMOLAR JONATAN 87403 PSA EQ 2.18 NG/ML 5 Unknown FREE T4 76445 FREE T4 1.04 NG/DL 01/07/2015 Unknown GFR CALC 1229276 GFR AA >60 ML/MIN 12/11/2013 Unknown GFR CALC 8758508 GFR NON-AA >60 ML/MIN 12/11/2013 Unknown LIPID GROUP 11693 HDL TEST 54 MG/DL 12/11/2013 Unknown LIPID GROUP 24374 TRIG 81 MG/DL 12/11/2013 Unknown LIPID GROUP 21283 TEST LDL 185 MG/DL 12/11/2013 Unknown LIPID GROUP 65182 CHOL 255 MG/DL 12/11/2013 Unknown LIPID GROUP 70358 RCHOL/HDL 4.72 RATIO 12/11/2013 Unknow n LIPID GROUP 28184 NON-HDL CH 201 MG/DL 12/11/2013 Unknow n URIC ACID 87970 URIC ACID 7.1 MG/DL 12/11/2013 Unknown PSA EQUIMOLAR JONATAN 80527 PSA EQ 3.80 NG/ML 4 Unknown COMPLETE BLOOD COUNT 9003681 WBC 5.9 10e9/L 12/12/19 14 Unknown COMPLETE BLOOD COUNT 8840655 RBC 4.40 10e12/L 2013 Unknown COMPLETE BLOOD COUNT 9658222 HGB 14.5 g/dL 4 Unknown COMPLETE BLOOD COUNT 5312285 HCT DET 43.6 % 4 Unknown COMPLETE BLOOD COUNT 3165334 MCV 99.1 fL 4 Unknown COMPLETE BLOOD COUNT 2491387 MCH 33.0 pg 4 Unknown COMPLETE BLOOD COUNT 3846127 MCHC 33.3 g/dL 4 Unknown COMPLETE BLOOD COUNT 8525869 PLT 289 10e9/L 12/12/19 14 Unknown COMPLETE BLOOD COUNT 2746572 MPV 10.2 fL 4 Unknown COMPLETE BLOOD COUNT 2138589 [place] % 47.9 % 4 Unknown COMPLETE BLOOD COUNT 9694194 LY % 40.6 % 4 Unknown COMPLETE BLOOD COUNT 2352841 MON % 8.8 % 4 Unknown COMPLETE BLOOD COUNT 8865081 EOS % 2.2 % 4 Unknown COMPLETE BLOOD COUNT 3234058 BASO % 0.5 % 4 Unknown COMPLETE BLOOD COUNT 6249711 RDW 12.9 % 4 Unknown COMPLETE BLOOD COUNT 7704812 ABS [place] 2.83 10e9/L 014 Unknown COMPLETE BLOOD COUNT 9932139 ABS LYMPH 2.40 10e9/L 014 Unknown COMPLETE BLOOD COUNT 8714523 ABS MONO 0.52 10e9/L 014 Unknown COMPLETE BLOOD COUNT 2002183 ABS EOS 0.13 10e9/L 014 Unknown COMPLETE BLOOD COUNT 4962644 ABS BASO 0.03 10e9/L 014 Unknown COMPLETE BLOOD COUNT 2045091 RDW-SD 45.7 fL 4 Unknown THYROID STIMULATING HORMONE 62290 TSH 1.013 uIU/ML 12/11/2013 Unknown COMPREHENSIVE METABOLIC 63434 AST 20 U/L 2013 Unknown COMPREHENSIVE METABOLIC 12339 ALT 16 IU/L 2013 Unknown COMPREHENSIVE METABOLIC 86238 BUN 17 MG/DL 2013 Unknown COMPREHENSIVE METABOLIC 78730 ALBUMIN 4.6 GM/DL 2013 Unknown COMPREHENSIVE METABOLIC 09550 CHLORIDE 107 MMOL/L 12/11 Unknown COMPREHENSIVE METABOLIC 44767 BILI TOT 0.7 MG/DL 2013 Unknown COMPREHENSIVE METABOLIC 44489 ALK PHOS 53 U/L 2013 Unknown COMPREHENSIVE METABOLIC 23176 SODIUM 140 MMOL/L 12/11 Unknown COMPREHENSIVE METABOLIC 41382 CREATININE 0.84 MG/DL 06/2013 Unknown COMPREHENSIVE METABOLIC 85012 CALCIUM 9.7 MG/DL 2013 Unknown COMPREHENSIVE METABOLIC 40936 POTASSIUM 4.6 MMOL/L 12/11 Unknown COMPREHENSIVE METABOLIC 16692 PROT TOT 6.9 GM/DL 2013 Unknown COMPREHENSIVE METABOLIC 00753 Glucose 97 MG/DL 2013 Unknown COMPREHENSIVE METABOLIC 28341 BICARB 25 MMOL/L 2013 Unknown COMPREHENSIVE METABOLIC 45106 ANION GAP 8 MEQ/L 2013 Unknown FREE T4 02563 FREE T4 1.11 NG/DL 12/11/2013 Unknown ASSAY OF CREATININE 04029 CREATININE 0.98 MG/DL 09/15/19 12 Unknown URIC ACID 39229 URIC ACID 4.9 MG/DL 09/15/2011 Unknown GFR CALC 1675591 GFR AA >60 ML/MIN 09/15/2011 Unknown GFR CALC 8254892 GFR NON-AA >60 ML/MIN 09/15/2011 Unknown THYROID STIMULATING HORMONE 75323 TSH 1.687 uIU/ML 08/01/2011 Unknown FREE T4 51863 FREE T4 0.96 NG/DL 08/01/2011 Unknown SJOGRENS 2991634 SJOGRN A <20 EU/ML 08/01/2011 Unknown SJOGRENS 4354711 SJOGRN B <20 EU/ML 08/01/2011 Unknown SJOGRENS 0009373 NONHIS INT SEE BELO 08/01/2011 Unknown THYRO PERX 4839879 THYRO PERX 175.34 UNITS 07/30/2011 Unkn own DNA AB 0901501 DNA AB 32 IU/ML 07/29/2011 Unknown TITER WENDI 6998606 TITR WENDI 1:160 07/29/2011 Unknown TITER WENDI 3484995 PATTERN NUCLEOLR 07/29/2011 Unknown ANTINUCLEAR ANTIBODY SCREEN 03108 WENDI SCR POSITIVE Unknown COMPREHENSIVE METABOLIC 65590 AST 23 U/L 2011 Unknown COMPREHENSIVE METABOLIC 50590 ALT 26 IU/L 2011 Unknown COMPREHENSIVE METABOLIC 43303 BUN 18 MG/DL 2011 Unknown COMPREHENSIVE METABOLIC 62925 ALBUMIN 4.6 GM/DL 2011 Unknown COMPREHENSIVE METABOLIC 34238 CHLORIDE 105 MMOL/L 07/27 Unknown COMPREHENSIVE METABOLIC 42422 BILI TOT 0.5 MG/DL 2011 Unknown COMPREHENSIVE METABOLIC 54525 ALK PHOS 63 U/L 2011 Unknown COMPREHENSIVE METABOLIC 46798 SODIUM 138 MMOL/L 07/27 Unknown COMPREHENSIVE METABOLIC 03501 CREATININE 0.92 MG/DL 07/09 Unknown COMPREHENSIVE METABOLIC 05418 CALCIUM 9.4 MG/DL 2011 Unknown COMPREHENSIVE METABOLIC 07227 POTASSIUM 3.9 MMOL/L 07/27 Unknown COMPREHENSIVE METABOLIC 84617 PROT TOT 6.7 GM/DL 2011 Unknown COMPREHENSIVE METABOLIC 08978 Glucose 101 MG/DL 2011 Unknown COMPREHENSIVE METABOLIC 28067 BICARB 24 MMOL/L 2011 Unknown COMPREHENSIVE METABOLIC 72223 ANION GAP 9 MEQ/L 2011 Unknown GFR CALC 6460380 GFR AA >60 ML/MIN 07/28/2011 Unknown GFR CALC 5366513 GFR NON-AA >60 ML/MIN 07/28/2011 Unknown ERYTHROCYTE SEDIMENTATION RATE 97542 ESR 2 MM/HR 07/28/2011 Unknown URIC ACID 84686 URIC ACID 5.8 MG/DL 07/28/2011 Unknown C-REACTIVE PROTEIN (CRP) QUANT 15884 CRP 0.2 MG/DL 07/28/2011 Unknown TITER WENDI 5285611 TITR WENDI 1:160 05/26/2011 Unknown TITER WENDI 2333462 PATTERN NUCLEOLR 05/26/2011 Unknown RA FACTOR 03582 RA FACTOR <20.0 IU/ML 05/26/2011 Unknown ANTINUCLEAR ANTIBODY SCREEN 16224 WENDI SCR POSITIVE Unknown URIC ACID 59287 URIC ACID 8.7 MG/DL 05/25/2011 Unknown PSA EQUIMOLAR JONATAN 26472 PSA EQ 2.79 NG/ML 2 Unknown LIPID GROUP 70465 HDL TEST 47 MG/DL 05/25/2011 Unknown LIPID GROUP 83178 TRIG 198 MG/DL 05/25/2011 Unknown LIPID GROUP 39712 TEST LDL 180 MG/DL 05/25/2011 Unknown LIPID GROUP 22761 CHOL 267 MG/DL 05/25/2011 Unknown LIPID GROUP 73404 RCHOL/HDL 5.68 RATIO 05/25/2011 Unknow n COMPREHENSIVE METABOLIC 42909 AST 21 U/L 2011 Unknown COMPREHENSIVE METABOLIC 96467 ALT 21 IU/L 2011 Unknown COMPREHENSIVE METABOLIC 03189 BUN 16 MG/DL 2011 Unknown COMPREHENSIVE METABOLIC 75443 ALBUMIN 4.4 GM/DL 2011 Unknown COMPREHENSIVE METABOLIC 02303 CHLORIDE 105 MMOL/L 05/25 Unknown COMPREHENSIVE METABOLIC 71710 BILI TOT 0.7 MG/DL 2011 Unknown COMPREHENSIVE METABOLIC 43291 ALK PHOS 60 U/L 2011 Unknown COMPREHENSIVE METABOLIC 70580 SODIUM 139 MMOL/L 05/25 Unknown COMPREHENSIVE METABOLIC 20777 CREATININE 0.92 MG/DL 05/11 Unknown COMPREHENSIVE METABOLIC 58572 CALCIUM 9.4 MG/DL 2011 Unknown COMPREHENSIVE METABOLIC 31312 POTASSIUM 4.1 MMOL/L 05/25 Unknown COMPREHENSIVE METABOLIC 68851 PROT TOT 7.0 GM/DL 2011 Unknown COMPREHENSIVE METABOLIC 19847 Glucose 108 MG/DL 2011 Unknown COMPREHENSIVE METABOLIC 66699 BICARB 25 MMOL/L 2011 Unknown COMPREHENSIVE METABOLIC 22802 ANION GAP 9 MEQ/L 2011 Unknown GFR CALC 5672012 GFR AA >60 ML/MIN 05/25/2011 Unknown GFR CALC [id number] GFR NON-AA >60 ML/MIN 05/25/2011 Unknown COMPLETE BLOOD COUNT 55316 WBC 5.6 10e9/L 05/25/19 12 Unknown COMPLETE BLOOD COUNT 60550 RBC 5.01 10e12/L 2011 Unknown COMPLETE BLOOD COUNT 57614 HGB 15.8 g/dL 2 Unknown COMPLETE BLOOD COUNT 04195 HCT DET 46.1 % 2 Unknown COMPLETE BLOOD COUNT 26776 MCV 92.0 fL 2 Unknown COMPLETE BLOOD COUNT 41742 MCH 31.5 pg 2 Unknown COMPLETE BLOOD COUNT 43674 MCHC 34.3 g/dL 2 Unknown COMPLETE BLOOD COUNT 29890 PLT 246 10e9/L 05/25/19 12 Unknown COMPLETE BLOOD COUNT 44393 MPV 10.3 fL 2 Unknown COMPLETE BLOOD COUNT 26706 VERONIUQE % 47.1 % 2 Unknown COMPLETE BLOOD COUNT 30092 LY % 41.0 % 2 Unknown COMPLETE BLOOD COUNT 96200 MON % 8.9 % 2 Unknown COMPLETE BLOOD COUNT 71904 EOS % 2.5 % 2 Unknown COMPLETE BLOOD COUNT 68953 BASO % 0.5 % 2 Unknown COMPLETE BLOOD COUNT 24637 RDW 12.7 % 2 Unknown COMPLETE BLOOD COUNT 55776 ABS VERONIQUE 2.64 10e9/L 012 Unknown COMPLETE BLOOD COUNT 15949 ABS LYMPH 2.30 10e9/L 012 Unknown COMPLETE BLOOD COUNT 36332 ABS MONO 0.50 10e9/L 012 Unknown COMPLETE BLOOD COUNT 18324 ABS EOS 0.14 10e9/L 012 Unknown COMPLETE BLOOD COUNT 59757 ABS BASO 0.03 10e9/L 012 Unknown COMPLETE BLOOD COUNT 37767 RDW-SD 41.3 fL 2 Unknown COMPREHENSIVE METABOLIC 67712 AST 18 U/L 2010 Unknown COMPREHENSIVE METABOLIC 98119 ALT 14 IU/L 2010 Unknown COMPREHENSIVE METABOLIC 66928 BUN 12 MG/DL 2010 Unknown COMPREHENSIVE METABOLIC 38941 ALBUMIN 4.6 GM/DL 2010 Unknown COMPREHENSIVE METABOLIC 14841 CHLORIDE 102 MMOL/L 02/01 Unknown COMPREHENSIVE METABOLIC 96366 BILI TOT 0.6 MG/DL 2010 Unknown COMPREHENSIVE METABOLIC 54127 ALK PHOS 66 U/L 2010 Unknown COMPREHENSIVE METABOLIC 01298 SODIUM 139 MMOL/L 02/01 Unknown COMPREHENSIVE METABOLIC 84056 CREATININE 0.92 MG/DL 01/09 Unknown COMPREHENSIVE METABOLIC 10481 CALCIUM 9.8 MG/DL 2010 Unknown COMPREHENSIVE METABOLIC 91928 POTASSIUM 4.1 MMOL/L 02/01 Unknown COMPREHENSIVE METABOLIC 47202 PROT TOT 7.0 GM/DL 2010 Unknown COMPREHENSIVE METABOLIC 59277 Glucose 101 MG/DL 2010 Unknown COMPREHENSIVE METABOLIC 48463 BICARB 25 MMOL/L 2010 Unknown COMPREHENSIVE METABOLIC 39453 ANION GAP 12 MEQ/L 2010 Unknown GFR CALC [id number] GFR AA >60 ML/MIN 02/01/2011 Unknown GFR CALC [id number] GFR NON-AA >60 ML/MIN 02/01/2011 Unknown LIPID GROUP 50529 HDL TEST 44 MG/DL 02/01/2011 Unknown LIPID GROUP 58011 TRIG 157 MG/DL 02/01/2011 Unknown LIPID GROUP 37256 TEST LDL 193 MG/DL 02/01/2011 Unknown LIPID GROUP 65379 CHOL 268 MG/DL 02/01/2011 Unknown LIPID GROUP 32755 RCHOL/HDL 6.09 RATIO 02/01/2011 Unknow n FREE T4 31278 FREE T4 1.04 NG/DL 02/01/2011 Unknown COMPLETE BLOOD COUNT 64536 WBC 6.4 10e9/L 02/02/20 11 Unknown COMPLETE BLOOD COUNT 63451 RBC 4.56 10e12/L 2010 Unknown COMPLETE BLOOD COUNT 62551 HGB 14.4 g/dL 1 Unknown COMPLETE BLOOD COUNT 33104 HCT DET 43.0 % 1 Unknown COMPLETE BLOOD COUNT 24211 MCV 94.3 fL 1 Unknown COMPLETE BLOOD COUNT 30370 MCH 31.6 pg 1 Unknown COMPLETE BLOOD COUNT 73371 MCHC 33.5 g/dL 1 Unknown COMPLETE BLOOD COUNT 30512 PLT 300 10e9/L 02/02/20 11 Unknown COMPLETE BLOOD COUNT 77051 MPV 9.9 fL 1 Unknown COMPLETE BLOOD COUNT 51264 VERONIQUE % 38.5 % 1 Unknown COMPLETE BLOOD COUNT 81155 LY % 49.1 % 1 Unknown COMPLETE BLOOD COUNT 85399 MON % 10.1 % 1 Unknown COMPLETE BLOOD COUNT 28818 EOS % 1.7 % 1 Unknown COMPLETE BLOOD COUNT 02491 BASO % 0.6 % 1 Unknown COMPLETE BLOOD COUNT 45788 RDW 15.1 % 1 Unknown COMPLETE BLOOD COUNT 61492 ABS VERONIQUE 2.46 10e9/L 011 Unknown COMPLETE BLOOD COUNT 18763 ABS LYMPH 3.14 10e9/L 011 Unknown COMPLETE BLOOD COUNT 85090 ABS MONO 0.65 10e9/L 011 Unknown COMPLETE BLOOD COUNT 47691 ABS EOS 0.11 10e9/L 011 Unknown COMPLETE BLOOD COUNT 68122 ABS BASO 0.04 10e9/L 011 Unknown COMPLETE BLOOD COUNT 89546 RDW-SD 50.6 fL 1 Unknown THYROID STIMULATING HORMONE 17584 TSH 1.128 uIU/ML 02/01/2011 Unknown PSA EQUIMOLAR JONATAN 75415 PSA EQ 3.83 NG/ML 1 Unknown VCA AB G/M [id number] EBV G VCA 3.34 12/03/2010 Unknown VCA AB G/M [id number] EBV M VCA 0.12 12/03/2010 Unknown EB GARY AG [id number] EB GARY AG 0.47 12/03/2010 Unknown EB NUCL AB [id number] EB NUCL AB 3.72 12/03/2010 Unknown COMPLETE BLOOD COUNT 44736 WBC 8.0 10e9/L 12/03/19 11 Unknown COMPLETE BLOOD COUNT 51166 RBC 4.93 10e12/L 2010 Unknown COMPLETE BLOOD COUNT 02040 HGB 15.7 g/dL 1 Unknown COMPLETE BLOOD COUNT 84959 HCT DET 45.4 % 1 Unknown COMPLETE BLOOD COUNT 63660 MCV 92.1 fL 1 Unknown COMPLETE BLOOD COUNT 62261 MCH 31.8 pg 1 Unknown COMPLETE BLOOD COUNT 17225 MCHC 34.6 g/dL 1 Unknown COMPLETE BLOOD COUNT 21152 PLT 248 10e9/L 12/03/19 11 Unknown COMPLETE BLOOD COUNT 83510 MPV 10.4 fL 1 Unknown COMPLETE BLOOD COUNT 44299 VERONIQUE % 74.0 % 1 Unknown COMPLETE BLOOD COUNT 01495 LY % 19.6 % 1 Unknown COMPLETE BLOOD COUNT 82689 MON % 5.2 % 1 Unknown COMPLETE BLOOD COUNT 54574 EOS % 1.1 % 1 Unknown COMPLETE BLOOD COUNT 54105 BASO % 0.1 % 1 Unknown COMPLETE BLOOD COUNT 45429 RDW 12.5 % 1 Unknown COMPLETE BLOOD COUNT 97208 ABS VERONIQUE 5.92 10e9/L 011 Unknown COMPLETE BLOOD COUNT 58826 ABS LYMPH 1.57 10e9/L 011 Unknown COMPLETE BLOOD COUNT 80834 ABS MONO 0.42 10e9/L 011 Unknown COMPLETE BLOOD COUNT 48080 ABS EOS 0.09 10e9/L 011 Unknown COMPLETE BLOOD COUNT 43266 ABS BASO 0.01 10e9/L 011 Unknown COMPLETE BLOOD COUNT 16156 RDW-SD 41.1 fL 1 Unknown URIC ACID 18439 URIC ACID 9.3 MG/DL 12/02/2010 Unknown Procedures Procedure Codes Date DEXAMETHASONE SODIUM PHOS CPT-4: J1100 05/31/2019 THER/PROPH/DIAG INJ SC/IM CPT-4: 76492 05/31/2019 THER/PROPH/DIAG INJ SC/IM CPT-4: 17221 05/17/2019 TRIAMCINOLONE ACET INJ NOS CPT-4: J3301 05/17/2019 DRAINAGE OF SKIN ABSCESS CPT-4: 08904 01/23/2019 AEROBIC WOUND CULTURE & STN CPT-4: 04720 01/23/2019 ROUTINE VENIPUNCTURE CPT-4: 00022 03/29/2017 ASSAY THYROID STIM HORMONE CPT-4: 06414 03/29/2017 ASSAY OF FREE THYROXINE CPT-4: 94150 03/29/2017 COMPREHEN METABOLIC PANEL CPT-4: 02877 03/29/2017 COMPLETE CBC W/AUTO DIFF WBC CPT-4: 04512 03/29/2017 LIPID PANEL CPT-4: 49560 03/29/2017 ASSAY OF BLOOD/URIC ACID CPT-4: 25604 03/29/2017 RBC SED RATE AUTOMATED CPT-4: 39606 03/29/2017 ROUTINE VENIPUNCTURE CPT-4: 95382 03/15/2017 ACUTE HEPATITIS PANEL CPT-4: 91686 03/15/2017 HIV-1/HIV-2 1 RESULT ANTBDY CPT-4: 26717 03/15/2017 EXC TR-EXT B9+SHASHA 0.5 CM< CPT-4: 50203 03/15/2017 EXC TR-EXT B9+SHASHA 1.1-2 CM CPT-4: 45206 03/15/2017 URINALYSIS NONAUTO W/O SCOPE CPT-4: 10492 01/07/2015 URINE CULTURE/ COLONY COUNT CPT-4: 75981 01/07/2015 ROUTINE VENIPUNCTURE CPT-4: 60236 01/07/2015 ASSAY OF FREE THYROXINE CPT-4: 24668 01/07/2015 ASSAY THYROID STIM HORMONE CPT-4: 88738 01/07/2015 COMPREHEN METABOLIC PANEL CPT-4: 26101 01/07/2015 COMPLETE CBC W/AUTO DIFF WBC CPT-4: 95220 01/07/2015 LIPID PANEL CPT-4: 99112 01/07/2015 ASSAY OF PSA TOTAL CPT-4: 23114 01/07/2015 ASSAY OF BLOOD/URIC ACID CPT-4: 95628 01/07/2015 ROUTINE VENIPUNCTURE CPT-4: 68863 12/11/2013 ASSAY OF FREE THYROXINE CPT-4: 47643 12/11/2013 ASSAY THYROID STIM HORMONE CPT-4: 00356 12/11/2013 COMPREHEN METABOLIC PANEL CPT-4: 62675 12/11/2013 COMPLETE CBC W/AUTO DIFF WBC CPT-4: 84637 12/11/2013 LIPID PANEL CPT-4: 11655 12/11/2013 ASSAY OF BLOOD/URIC ACID CPT-4: 09401 12/11/2013 ASSAY OF PSA TOTAL CPT-4: 67921 12/11/2013 URINE CULTURE/ COLONY COUNT CPT-4: 89502 01/02/2013 AEROBIC WOUND CULTURE & STN CPT-4: 10311 10/10/2011 DRAINAGE OF SKIN ABSCESS CPT-4: 02618 10/10/2011 ASSAY OF CREATININE CPT-4: 36417 09/15/2011 ASSAY OF BLOOD/URIC ACID CPT-4: 88817 09/15/2011 ROUTINE VENIPUNCTURE CPT-4: 77863 07/28/2011 ANTINUCLEAR ANTIBODIES CPT-4: 83112 07/28/2011 RBC SED RATE AUTOMATED CPT-4: 42058 07/28/2011 ASSAY OF BLOOD/URIC ACID CPT-4: 31387 07/28/2011 COMPREHEN METABOLIC PANEL CPT-4: 51916 07/28/2011 C-REACTIVE PROTEIN CPT-4: 68316 07/28/2011 THYRO PERX CPT-4: 7292944 07/28/2011 DNA AB CPT-4: 6179299 07/28/2011 SJOGRENS CPT-4: 3441044 07/28/2011 ASSAY OF FREE THYROXINE CPT-4: 47334 07/28/2011 ASSAY THYROID STIM HORMONE CPT-4: 83099 07/28/2011 ROUTINE VENIPUNCTURE CPT-4: 32832 05/25/2011 COMPREHEN METABOLIC PANEL CPT-4: 19164 05/25/2011 COMPLETE CBC W/AUTO DIFF WBC CPT-4: 60545 05/25/2011 ANTINUCLEAR ANTIBODIES CPT-4: 16564 05/25/2011 RHEUMATOID FACTOR QUANT CPT-4: 16857 05/25/2011 ASSAY OF PSA TOTAL CPT-4: 11005 05/25/2011 ASSAY OF BLOOD/URIC ACID CPT-4: 28538 05/25/2011 LIPID PANEL CPT-4: 59369 05/25/2011 ROUTINE VENIPUNCTURE CPT-4: 56839 02/01/2011 ASSAY OF FREE THYROXINE CPT-4: 92325 02/01/2011 ASSAY THYROID STIM HORMONE CPT-4: 30092 02/01/2011 COMPREHEN METABOLIC PANEL CPT-4: 12241 02/01/2011 COMPLETE CBC W/AUTO DIFF WBC CPT-4: 89946 02/01/2011 LIPID PANEL CPT-4: 37153 02/01/2011 ASSAY OF PSA TOTAL CPT-4: 27078 02/01/2011 ROUTINE VENIPUNCTURE CPT-4: 61749 12/02/2010 ASSAY OF BLOOD/URIC ACID CPT-4: 25867 12/02/2010 EB VIRUS VCA G/M + EBNA + EA CPT-4: 53136|67373 x 2|84211 COMPLETE CBC W/AUTO DIFF WBC CPT-4: 33536 12/02/2010 COMPREHEN METABOLIC PANEL CPT-4: 05866 09/14/2009 ASSAY OF BLOOD/URIC ACID CPT-4: 49256 09/14/2009 ROUTINE VENIPUNCTURE CPT-4: 09208 09/14/2009 URINALYSIS NONAUTO W/O SCOPE CPT-4: 07049 09/01/2009 Vital Signs Date Vital 05/31/2019 Blood [...] 1: 118/64 Code: 8480-6 BMI: 29.7 Code: 55981-9 Heart Rate 1: 100 bpm Height: 5'6" Respiratory Rate: 22 bpm SpO2: 95% Tempera ture: 36.7 (C) / 98.0 (F) Weight: 187 lbs 02/27/2017 Blood Pressure 1: 132/76 Code: 8480-6 BMI: 30.8 Code: 25682-7 Heart Rate 1: 96 bpm Height: 5'6" Respiratory Rate: 22 bpm SpO2: 98% Tempera ture: 36.6 (C) / 97.8 (F) Weight: 194 lbs 03/31/2015 Blood Pressure 1: 128/90 Code: 8480-6 Heart Rate 1: 88 bpm Respiratory Rate: 20 bpm Temperature: 36.9 (C) / 98.4 (F) Weight: 192 lbs 01/07/2015 Blood Pressure 1: 132/80 Code: 8480-6 BMI: 30.2 Code: 43354-0 Heart Rate 1: 78 bpm Height: 5'6" Respiratory Rate: 22 bpm Temperature: 36 .7 (C) / 98.1 (F) Weight: 190 lbs 04/15/2014 Blood Pressure 1: 136/88 Code: 8480-6 BMI: 31.0 Code: 85209-6 Heart Rate 1: 84 bpm Height: 5'6" Respiratory Rate: 20 bpm Temperature: 36 .1 (C) / 97.0 (F) Weight: 192 lbs 12/10/2013 Blood Pressure 1: 142/90 Code: 8480-6 BMI: 29.1 Code: 74323-5 Heart Rate 1: 72 bpm Height: 5'7" Respiratory Rate: 20 bpm Temperature: 36 .6 (C) / 97.8 (F) Weight: 186 lbs 05/02/2013 Blood Pressure 1: 146/96 Code: 8480-6 BMI: 30.5 Code: 36066-0 Heart Rate 1: 88 bpm Height: 5'7" Respiratory Rate: 20 bpm Temperature: 37 .0 (C) / 98.6 (F) Weight: 195 lbs 01/02/2013 Blood Pressure 1: 132/84 Code: 8480-6 BMI: 30.2 Code: 10641-6 Heart Rate 1: 80 bpm Height: 5'7" Respiratory Rate: 20 bpm Temperature: 36 .9 (C) / 98.4 (F) Weight: 193 lbs 10/10/2011 Blood Pressure 1: 122/68 Code: 8480-6 BMI: 35.7 Code: 92736-7 Heart Rate 1: 84 bpm Height: 5'2" Temperature: 36.9 (C) / 98.5 (F) Weight: 195 lbs 08/12/2011 Blood Pressure 1: 110/80 Code: 8480-6 BMI: 36.9 Code: 57321-4 Heart Rate 1: 80 bpm Height: 5'2" Temperature: 36.4 (C) / 97.6 (F) Weight: 202 lbs 08/04/2011 Blood Pressure 1: 126/80 Code: 8480-6 BMI: 37.9 Code: 47159-9 Heart Rate 1: 76 bpm Height: 5'2" Respiratory Rate: 20 bpm Temperature: 37 .0 (C) / 98.6 (F) Weight: 207 lbs 05/24/2011 Blood Pressure 1: 122/82 Code: 8480-6 BMI: 37.7 Code: 08423-8 Heart Rate 1: 68 bpm Height: 5'2" Temperature: 36.7 (C) / 98.1 (F) Weight: 206 lbs 04/15/2011 Blood Pressure 1: 128/82 Code: 8480-6 BMI: 37.1 Code: 81010-7 Heart Rate 1: 68 bpm Height: 5'2" [...] 1: 106/62 Code: 8480-6 BMI: 36.8 Code: 81383-2 Heart Rate 1: 90 bpm Height: 5'2" SpO2: 94% Temperature: 36.4 (C) / 97.6 (F) Weight: 201 lbs 12/02/2010 Blood Pressure 1: 142/90 Code: 8480-6 BMI: 36.8 Code: 96833-6 Heart Rate 1: 96 bpm Height: 5'2" [...] success Encounters Encounter Performer Location Codes Date ([id number]) OFFICE/OUTPATIENT VISIT EST Diagnosis: Acute contact dermatitis[ICD10: L25.9] Azragamal BYRNE DO [facility] CPT-4: 50282 05/31/2019 ([id number]) OFFICE/OUTPATIENT VISIT EST Diagnosis: Acute contact dermatitis[ICD10: L25.9] Diagnosis: Acute sinusitis[ICD10: J01.90] [facility] 544[facility] 05/17/2019 ([id number]) OFFICE/OUTPATIENT VISIT EST Diagnosis: Acute gastritis without bleeding[ICD10: K29.00] Diagnosis: Essential (primary) hypertension[ICD10: I10] Diagnosis: Hyperlipidemia, unspecified[ICD10: E78.5] Azra BYRNE [facility] CPT-4: 45801 10/31/2018 ([id number]) OFFICE/OUTPATIENT VISIT EST Diagnosis: Acute gastritis without bleeding[ICD10: K29.00] Azra BYRNE [facility] CPT-4: 69187 01/18/2018 ([id number]) OFFICE/OUTPATIENT VISIT EST Diagnosis: Hyperlipidemia, unspecified[ICD10: E78.5] Diagnosis: Essential (primary) hypertension[ICD10: I10] Diagnosis: Weakness[ICD10: R53.1] Diagnosis: Sebaceous cyst[ICD10: L72.3] Diagnosis: Idiopathic gout, unspecified site[ICD10: M10.00] [facility] 92791 03/29/2017 OFFICE/OUTPATIENT VISIT EST Diagnosis: Pain in right knee[ICD10: M25.561] [facility] 18705 03/13/2017 OFFICE/OUTPATIENT VISIT EST Diagnosis: Pain in right leg[ICD10: M79.604] Diagnosis: Sebaceous cyst[ICD10: L72.3] Azra BYRNE [facility] CPT-4: 52754 02/27/2017 OFFICE/OUTPATIENT VISIT EST Diagnosis: Local infection of the skin and subcutaneous tissue, unspecified[ICD10: L08.9] Diagnosis: Essential (primary) hypertension[ICD10: I10] Diagnosis: Hyperlipidemia, unspecified[ICD10: E78.5] Dagmar Ahmadi SYLVIE COBB [employer] [facility] CPT-4: 13427 03/31/2015 ([id number]) PREV VISIT EST AGE 40-64 Diagnosis: History of chest pain[ICD9: V13.89] Diagnosis: Right flank pain[ICD9: 789.09] Diagnosis: ROUTINE MEDICAL EXAM[ICD9: V70.0] Diagnosis: HYPERTENSION[ICD9: 401.9] Diagnosis: HYPERLIPIDEMIA NEC/NOS[ICD9: 272.4] Diagnosis: Colon polyps[ICD9: 211.3] Diagnosis: HEMATURIA NOS[ICD9: 599.70] Dagmar ZhaoNoemi SYLVIE SammiFrancisco AGAPITO [employer] [facility] CPT-4: 62344 01/07/2015 OFFICE/OUTPATIENT VISIT EST Diagnosis: COUGH[ICD9: 786.2] Diagnosis: Rectal itching[ICD9: 698.0] Dagmar PavelNoemi SAINZ SammiFrancisco YVANSCARLETTDELMI [facility] CPT-4: 15442 04/15/2014 ([id number]) OFFICE/OUTPATIENT VISIT EST Diagnosis: ROUTINE MEDICAL EXAM[ICD9: V70.0] Diagnosis: GOUT[ICD9: 274.9] Diagnosis: HYPERLIPIDEMIA NEC/NOS[ICD9: 272.4] Diagnosis: HYPERTENSION[ICD9: 401.9] Sylvie Yvanjean claude SAINZ SammiFrancisco YVAN SILVERIO [facility] CPT-4: 77676 12/11/2013 ([id number]) OFFICE/OUTPATIENT VISIT EST Diagnosis: Shingles[ICD9: 053.9] Sylvie Yvanjean claude Phillips YVANSCARLETTDELMI [facility] CPT-4: 39246 12/10/2013 ([id number]) OFFICE/OUTPATIENT VISIT EST Diagnosis: HYPERTENSION[ICD9: 401.9] Diagnosis: Colon polyps[ICD9: 211.3] Diagnosis: Stress reaction[ICD9: 308.9] Sylvie Yvanjean claude SAINZ SammiFrancisco AGAPITO [employer] [facility] CPT-4: 61047 05/02/2013 ([id number]) OFFICE/OUTPATIENT VISIT EST Diagnosis: URINARY TRACT INFECTION[ICD9: 599.0] [facility] 40453 01/02/2013 OFFICE/OUTPATIENT VISIT EST Diagnosis: CELLULITIS OF TRUNK[ICD9: 682.2] Diagnosis: SPRAIN SHOULDER/ARM[ICD9: 840.9] Liza Phillips AGAPITO [facility] CPT-4: 42927 10/10/2011 ([id number]) OFFICE/OUTPATIENT VISIT EST Diagnosis: GOUT[ICD9: 274.9] Sylvie WILSONLINE SammiFrancisco AGAPITO [facility] CPT-4: 54934 09/15/2011 OFFICE/OUTPATIENT VISIT EST Diagnosis: DIARRHEA[ICD9: 787.91] Sylvie Yvanscarlettdelmi WILSONSYLVIE SammiFrancisco YVANSCARLETTMarvin Cagle [facility] CPT-4: 27390 08/12/2011 ([id number]) OFFICE/OUTPATIENT VISIT EST Diagnosis: GOUT[ICD9: 274.9] Diagnosis: Positive WENDI (antinuclear antibody)[ICD9: 795.79] Sylvie WILSONLINE SammiFrancisco AGAPITO [facility] CPT-4: 23834 08/04/2011 OFFICE/OUTPATIENT VISIT EST Diagnosis: Rash[ICD9: 782.1] Diagnosis: Joint pain[ICD9: 719.40] Diagnosis: Hyperlipidemia[ICD9: 272.4] Sylvie WILSONCHIQUITA Kulkarni RENDER [facility] CPT-4: 39695 05/24/2011 OFFICE/OUTPATIENT VISIT EST Diagnosis: PHARYNGITIS, ACUTE[ICD9: 462] Diagnosis: COUGH[ICD9: 786.2] Diagnosis: SINUSITIS, ACUTE[ICD9: 461.9] Sylvie WILSONLINE SammiFrancisco AGAPITO [facility] CPT-4: 34026 04/15/2011 OFFICE/OUTPATIENT VISIT EST Diagnosis: Clavicle fracture[ICD9: 810.00] Sylvie Yvanscarlettdelmi WILSONSYLVIE SammiFrancisco YVANJEAN CLAUDE [facility] CPT-4: 92614 01/13/2011 OFFICE/OUTPATIENT VISIT EST Diagnosis: Clavicle pain[ICD9: 719.41] Sylvie WILSONCHIQUITA Kulkarni RENDER [facility] CPT-4: 76641 12/23/2010 OFFICE/OUTPATIENT VISIT EST Diagnosis: Arm pain[ICD9: 729.5] Diagnosis: SPASM OF MUSCLE[ICD9: 728.85] Diagnosis: Neck pain[ICD9: 723.1] Sylvie Yvanjean claude Phillips YVANMARLIN Cagle [facility] CPT-4: 05112 12/15/2010 OFFICE/OUTPATIENT VISIT EST Diagnosis: HYPERTENSION[ICD9: 401.9] Diagnosis: PHARYNGITIS, ACUTE[ICD9: 462] Diagnosis: MALAISE AND FATIGUE[ICD9: 780.79] Diagnosis: GOUT[ICD9: 274.9] Sylvie CHAHAL CPT-4: 75566 12/02/2010 ([id number]) OFFICE/OUTPATIENT VISIT, EST Sylvie CHAHAL CPT-4: 00020 04/19/2010 ([id number]) OFFICE/OUTPATIENT VISIT, EST Sylvie CHAHAL CPT-4: 65956 04/14/2010 ([id number]) OFFICE/OUTPATIENT VISIT, NHAN CHAHAL CPT-4: 12612 09/01/2009 Plan of Care Planned Activity Notes [...] L25.9 05/31/2019 Patient Education: prednisone- [employer] Coupon [id number] https://www.[employer]/resources/getResource/61/ute873us-[email or web address] Completed 05/31/2019 Visit Diagnosis Plan: Acute contact dermatitis Discuss ion: Kenalog 40mg IM now Cover with [employer] Call in 1week on how doing Medrol Dose Pack ICD-9 : 692.9 ICD-10 : L25.9 05/17/2019 Appointment: Sylvie Byrne WPtel: [phone] [facility] ACUTE ILLNESS 05/17/2019 Patient Education: Medrol (Nicholas)- [employer] Coupon [phone] https://www.[employer]/resources/getResource/61/[email or web address] Completed 05/17/2019 Visit Diagnosis Plan: Abscess of chest wall Discussion : patient has large amount of induration still noted despite recent drainage and antibiotics. dr. najera's office was called and they were able to see patient today. patient was sent over there for possible surgery. ICD-9 : 682.2 ICD-10 : L02.213 01/25/2019 Appointment: Azra Bradley [address] [place], [place] [id number] FOLLOW UP 01/25/2019 Visit Diagnosis Plan: Abscess [...] ICD-10 : L02.213 01/23/2019 Appointment: Azra Bradley [address] [place], [place] [address] Patient called 01/21/19 to [facility] [place] [facility] 01/23/2019 Patient Education: clindamycin HCl- [employer] Coupon [id number] https://www.[employer].com/samplemd/resources/getResource/61/[email or web address]-[email or web address]-49 Completed 01/23/2019 Appointment: Azra Bradley [address] [place], [place] [id number] CANCELED 01/16/2019 Visit Diagnosis Plan: Hyperlipidemia, unspecified [...] ICD-10 : K29.00 10/31/2018 Appointment: Azra Bradley [address] [place], [place] [address] ACUTE ILLNESS 10/31/2018 Patient Education: High Blood [...] : K29.00 01/18/2018 Appointment: Azra Bradley [address] [facility] ACUTE ILLNESS 01/18/2018 Patient Education: Patient Medication Summary Completed 01/18/2018 Appointment: Sylvie Byrne WPtel: [facility] LAB 03/29/2017 Patient Education: Patient Medication Summary [...] : L72.3 03/15/2017 Appointment: Azra Bradley [address] [facility] OFFICE SURGERY 03/15/2017 Patient Education: [...] : M25.561 03/13/2017 Appointment: [facility] [place] [facility] 03/13/2017 Patient Education: Patient Medication Summary Completed 03/13/2017 Care Plan: X-RAY EXAM OF KNEE 1 OR 2 ATUL [place] : 93680-1 Pending 03/13/2017 Visit Diagnosis Plan: Pain in [...] ICD-10 : L72.3 02/27/2017 Appointment: Azra Bradley [address] [place] [address] ACUTE ILLNESS 02/27/2017 Patient Education: Patient Medication Summary Completed 02/27/2017 Appointment: Katerina Sousa WPtel: [phone] [place] [address] ACUTE ILLNESS 08/21/2015 Visit Plan: Has been off of Pravastatin. Will resume Pravastitin 20mg. and re- check labs in 3 months, Resume Lisinopril and Allopurinol Warm moist compresses to left chest lesion Complete doxycycline Return check after antibiotics completed if no improvement in lesion to left chest will refer for removal of nodular skin lesion upper right back. 03/31/2015 Appointment: Dagmar Ahmadi WPtel: [phone] [place], [place] [address] 03/30 Confirmed ~sl FOLLOW UP 03/31/2015 Patient Education: Patient Medication Summary Completed 03/31/2015 Visit Plan: CBC, CMP, TSH, Free T4, Lipi d Panel, Uric Acid, PSA, EKG Urine culture today Increase fluids to >120cc's daily. Notify if flank pain increases. Resume Lisinopril 20 mg PO daily Resume Allopurinol 100 mg Ciprofloxacin 500 mg PO bid Scheudule appt. for follow-up Colonscopy - [place] 01/07/2015 Appointment: Dagmar Ahmadi WPtel: [phone] [phone] 01/06 appointment confirmed cn Annual Well Visit 01/07/2015 Patient Education: Patient Medication Summary Completed 01/07/2015 Patient Education: [facility] - [employer]aving [employer] - Lisinopril - 18-64 - Dynamic Portal ID Completed 01/07/2015 Appointment: Sylvie Byrne WPtel: [address] [place] [address] ACUTE ILLNESS 08/26/2014 Appointment: Dagmar Ahmadi WPtel: [address] [place] [address] ACUTE ILLNESS 04/15/2014 Patient Education: Patient Medication Summary Completed 04/15/2014 Appointment: Sylvie Byrne WPtel: [address] [place] [address] US LAB 12/11/2013 Patient Education: Patient Medication Summary Completed 12/11/2013 Visit Plan: Check CBC, CMP, TSH, Free T4 , Lipids, uric acid, PSA--pt will return in AM for fasting lab Finish acyclovir Discussed Zostavax down road 12/10/2013 Appointment: Sylvie Byrne WPtel: [address] [place] [address] 12/06 left message FOLLOW UP 12/10/2013 Patient Education: Patient Medication Summary Completed 12/10/2013 Visit Plan: Lisinopril 20mg daily Stress Reducers and trial of fluoxetine 10mg q am Proceed with colonoscopy Check fasting lab 05/02/2013 Appointment: Sylvie Byrne WPtel: [address] [place] [address] ACUTE ILLNESS 05/02/2013 Patient Education: Patient Medication Summary Completed 05/02/2013 Appointment: Sylvie Byrne WPtel: [address] [place] [address] ACUTE ILLNESS 01/02/2013 Patient Education: Patient Medication Summary Completed 01/02/2013 Appointment: Liza Ragsdale WPtel: [address] [place] [address] ACUTE ILLNESS 10/10/2011 Patient Education: Patient Medication Summary Completed 10/10/2011 Appointment: [facility] [id number] [place] [facility] 09/15/2011 Patient Education: Patient [...] Will seek re-eval if symptoms worsen or traveler changer the weekend. 08/12/2011 Appointment: Liza Ragsdale WPtel: [address] [place] [address] ACUTE ILLNESS 08/12/2011 Patient Education: Patient Medication Summary Completed 08/12/2011 Visit Plan: Continue increased dose of a llopurinol and daily colcrys Recheck thyroid lab, uric acid and PSA in 3mos Will hold on NSAID at this time due to history of GERD 08/04/2011 Appointment: Sylvie Byrne WPtel: [address] [place], [place] [id number] FOLLOW UP 08/04/2011 Patient Education: Patient Medication Summary Completed 08/04/2011 Appointment: Sylvie Byrne WPtel: [address] [place], [place] [id number] [place] LAB 07/28/2011 Patient Education: Patient Medication Summary Completed 07/28/2011 Appointment: Sylvie Byrne WPtel: [address] [place], [place] [phone] [place] LAB 05/25/2011 Patient Education: Patient Medication [...] at night. 05/24/2011 Appointment: Liza Ragsdale WPtel: [address] [place] [address] ACUTE ILLNESS 05/24/2011 Patient Education: Patient Medication Summary Completed 05/24/2011 Visit Plan: codeine/guif cough syrup and cefdinir are phoned to [facility]. Discussed fluids and rest. Pt. will notify if symptoms persist or worsen. 04/15/2011 Appointment: Liza Ragsdale WPtel: [address] [place] [address] ACUTE ILLNESS 04/15/2011 Patient Education: Patient Medication Summary Completed 04/15/2011 Appointment: Sylvie Byrne WPtel: [address] [place] [address] LAB 02/01/2011 Patient Education: Patient Medication Summary Completed 02/01/2011 Visit Plan: Repeat clavicle x-ray in 6wk s Check bone density 01/13/2011 Appointment: Sylvie Byrne WPtel: [address] [place] [address] FOLLOW UP 01/13/2011 Patient Education: Patient Medication Summary Completed 01/13/2011 Visit Plan: Check right clavicle and alda ulder x-ray Continue Vimovo and flexeril 12/23/2010 Appointment: Sylvie Byrne WPtel: [address] [place] [address] FOLLOW UP 12/23/2010 Patient Education: Patient Medication Summary Completed 12/23/2010 Appointment: Sylvie Byrne WPtel: [address] [place] [place] [address] ER Follow UP 12/15/2010 Patient Education: Patient [...] BP check. 12/02/2010 Appointment: Liza Ragsdale WPtel: [address] [place], [place] [phone] ACUTE ILLNESS 12/02/2010 Patient Education: Patient Medication Summary Completed 12/02/2010 Care Plan: ASSAY OF BLOOD/URIC ACID Pendi ng 12/02/2010 Care Plan: VCA AB G/M Pending 2010 Care Plan: EB GARY AG Pending 2010 Care Plan: EB NUCL AB Pending 2010 Appointment: Sylvie Byrne WPtel: [address] [place] [address] US FOLLOW UP 11/18/2010 Visit Plan: benadryl 25 mg tab QHS. 12.5 mg tab every 8 hrs during the day. Pt. will notify if symptoms worsen. No facial edema present. 04/19/2010 Appointment: Liza Ragsdale WPtel: [address] [place] [address] FOLLOW UP 04/19/2010 Patient Education: Patient Medication [...] no improvement. 04/14/2010 Appointment: Liza Ragsdale WPtel: [address] [place], [place] [phone] ACUTE ILLNESS 04/14/2010 Patient Education: Patient Medication Summary Completed 04/14/2010 Appointment: Liza Ragsdale WPtel: [address] [place], [place] [phone] ACUTE ILLNESS 03/12/2010 [facility]ment: [facility] [phone] [id number] [facility] 09/14/2009 Patient Education: Patient Medication Summary Completed 09/14/2009 Appointment: [facility] [phone] [id number] [facility] 09/01/2009 Patient Education: Patient [...] Ciprofloxacin 500 mg PO bid [facility] appt. for follow-up Colonscopy - Candido . [...] seek re- eval if symptoms worsen or traveler changer the weekend. . Continue increased dose [...] . Pt has used HCG with Dr. Quitnana. Pt is planning another round of HCG [...]
--- OUTSIDE RECORDS SUMMARY | 2019-10-17 10:38 | XMS REPORT | CCD ---
Author Author Renan Byrne D.O. Organization [facility] Address [address] [place] [address] Phone Care Team Providers Care Fans Clerk Name Role Phone Sylvie Byrne D.O., PP Unavailable CCM Unavailable Summary Purpose Interface Exchange Insurance Providers Payer name Policy type / Coverage type Covered constitution party ID Effective Begin Date Effective End Date WPS MEDICARE PART B [place] Medicare Part B [id number] Unknown [employer] [facility] Medicare Part B [id number] Unknown Family History Family History data not found Social History Social History Element Codes Description Effective Dates Tobacco history SNOMED CT: 662106289 Nonsmoker 12/02/2010 Allergies, Adverse Reactions, Alerts Substance [...] mg tablets in a dose pack RxNorm: 021362 6 Tablet(s) Oral QD --then as directed 05/17/2019 05/23/2019 Active Elimite 5 % topical cream RxNorm: 474580 Application To pical QPM from head to toe 05/17/2019 07/16/2019 Active Osteo Bi-Flex 250 mg-200 mg tablet RxNorm: 882275 2 Tablet(s) O ral QD 01/23/2019 No Stop Date Active clindamycin HCl 300 mg capsule RxNorm: 863873 2 Capsule (s) Oral three times a day 01/23/2019 01/30/2019 Inactive Flagyl 500 mg tablet RxNorm: 906380 1 Tablet(s) PO BID 10/31/2018 Inactive lisinopril 20 mg tablet RxNorm: 645196 1 Tablet(s) PO QD for bl ood pressure 09/13/2018 12/11/2018 Inactive allopurinol 100 mg tablet RxNorm: 537984 1 Tablet(s) PO QD 09/14/19 19 12/11/2018 Inactive Flagyl 500 mg tablet RxNorm: 773313 1 Tablet(s) PO BID 01/18/2018 Inactive Cipro 250 mg tablet RxNorm: 052045 1 Tablet(s) PO BID 01/18/201801/08 Inactive lisinopril 20 mg tablet RxNorm: 349816 1 Tablet(s) PO QD for bl ood pressure 11/06/2017 02/03/2018 Inactive allopurinol 100 mg tablet RxNorm: 204492 1 Tablet(s) PO QD 11/07/19 18 02/03/2018 Inactive allopurinol 100 mg tablet RxNorm: 644395 1 Tablet(s) PO QD 04/11/19 18 10/07/2017 Inactive lisinopril 20 mg tablet RxNorm: 004743 1 Tablet(s) PO QD for bl ood pressure 04/07/2017 11/05/2017 Inactive prednisone 20 mg tablet RxNorm: 702298 2 Tablet(s) PO QD 03/15/2017 1 05/18/2016 Inactive tramadol 50 mg tablet RxNorm: 186220 1-2 Tablet(s) PO TID as needed 03/13/2017 08/06/2017 Inactive Medrol (Nicholas) 4 mg tablets in a dose pack RxNorm: 214124 Tablet(s) PO As Directed 02/28/2017 08/01/2017 Inactive allopurinol 100 mg tablet RxNorm: 458926 1 Tablet(s) PO QD 04/11/19 17 04/11/2017 Inactive lisinopril 20 mg tablet RxNorm: 244419 1 Tablet(s) PO QD for bl ood pressure 04/11/2016 04/07/2017 Inactive pravastatin 20 mg tablet RxNorm: 786383 1 Tablet(s) PO QD 01/13/2016 02/26/2017 Inactive pravastatin 20 mg tablet RxNorm: 720129 TAKE 1 TABLET DAILY 016 01/13/2016 Inactive pravastatin 40 mg tablet RxNorm: 906179 1 Tablet(s) PO QD 03/31/2015 03/31/2015 Inactive pravastatin 20 mg tablet RxNorm: 112504 1 Tablet(s) PO QD 03/31/2015 06/28/2015 Inactive doxycycline hyclate 100 mg capsule RxNorm: 2788032 1 Capsule(s) PO BID 03/31/2015 04/09/2015 Inactive mupirocin 2 % topical ointment RxNorm: 460876 Apply TOP BID to affected lesions 03/31/2015 08/01/2017 Inactive pravastatin 40 mg tablet RxNorm: 845339 1 Tablet(s) PO QD 01/08/2015 03/30/2015 Inactive lisinopril 20 mg tablet RxNorm: 231192 1 Tablet(s) PO QD for bl ood pressure 01/07/2015 12/31/2015 Inactive allopurinol 100 mg tablet RxNorm: 403123 1 Tablet(s) PO QD 01/08/20 15 04/10/2016 Inactive ciprofloxacin 500 mg tablet RxNorm: 992539 1 Tablet(s) PO BID 01/0701/13/2015 Inactive doxycycline hyclate 100 mg capsule RxNorm: 7041750 1 Capsule(s) PO BID 04/15/2014 04/24/2014 Inactive fluoxetine 10 mg capsule RxNorm: 782907 1 Capsule(s) PO QAM 014 04/14/2014 Inactive lisinopril 20 mg tablet RxNorm: 024946 1 Tablet(s) PO QD for bl ood pressure 05/02/2013 04/26/2014 Inactive Cipro 500 mg tablet RxNorm: 611382 1 Tablet(s) PO BID 01/02/201312/10 Inactive Cipro 500 mg tablet RxNorm: 072930 1 Tablet(s) PO BID 01/02/201304/2012 Inactive doxycycline hyclate 100 mg Cap RxNorm: 590778 1 Capsule(s) PO BID 0 10/10/2011 10/19/2011 Inactive Culturelle 10 billion cell Cap RxNorm: 402140 1 Capsule(s) PO BID 0 08/12/2011 09/10/2011 Inactive Colcrys 0.6 mg Tab RxNorm: 171191 1 Tablet(s) PO BID 08/04/201111/30 Inactive allopurinol 100 mg Tab RxNorm: 041680 1 Tablet(s) PO BID 07/13/2011 0 08/03/2011 Inactive clotrimazole-betamethasone 1 %-0.05 % Topical Cream RxNorm: 285330 1 Application TOP BID 06/10/2011 06/23/2011 Inactive clotrimazole-betamethasone 1 %-0.05 % Topical Cream RxNorm: 726573 1 Application TOP BID 05/24/2011 06/06/2011 Inactive Colcrys 0.6 mg Tab RxNorm: 509544 1 Tablet(s) PO BID 05/24/201108/02 Inactive cefdinir 300 mg Cap RxNorm: 914558 1 Capsule(s) PO BID 04/15/2011 Inactive Daypro 600 mg Tab RxNorm: 186372 1 Tablet(s) PO BID 12/15/20102010 Inactive for pain Medrol (Nicholas) 4 mg Tabs in a Dose Pack RxNorm: 462603 Tablet(s) PO 0 12/09/2010 12/15/2010 Inactive as directed Colcrys 0.6 mg Tab RxNorm: 389757 1 Tablet(s) PO BID 12/06/201001/04 Inactive lisinopril-hydrochlorothiazide 20 mg-12.5 mg Tab RxNorm: 197 886 1 Tablet(s) PO QAM 12/02/2010 01/30/2011 Inactive ranitidine 150 mg tablet RxNorm: 9606822 1 Tablet(s) PO BID Pt will phone before filing this script. 04/14/2010 05/13/2010 Inactive allopurinol 100 mg Tab RxNorm: 523589 1 Tablet(s) PO BID 09/16/2009 0 11/14/2009 Inactive lisinopril-hydrochlorothiazide 20 mg-12.5 mg Tab RxNorm: 197 886 1 Tablet(s) PO QAM 06/23/2009 08/31/2009 Inactive ibuprofen 200 mg tablet RxNorm: 757212 4 Tablet(s) PO QAM No Start Da te Active Zithromax Z-Nicholas 250 mg Tab RxNorm: 290539 Tablet(s) PO as direc tenzin No Start Date 01/12/2011 Inactive Ultram Oral RxNorm: Oral No Start Date 01/01/2013 Inactive allopurinol 100 mg tablet RxNorm: 425657 1 Tablet(s) PO QD No Start Date 01/06/2015 Inactive pravastatin 40 mg tablet RxNorm: 561563 1 Tablet(s) PO QD No Start Date 01/07/2015 Inactive Naprosyn 500 mg tablet RxNorm: 773981 1 Tablet(s) PO BID No Start D ate 05/01/2013 Inactive azithromycin 250 mg tablet RxNorm: 260806 2 Tablet(s) P O QD take 2 tablets (500 mg) by oral route once daily for 1 day then 1 tablet (250 mg) by oral route once daily for 4 days No Start Date 01/12/2011 Inactive allopurinol 300 mg Tab RxNorm: 794729 1 Tablet(s) PO QD No Start Da te 01/01/2013 Inactive Colcrys 0.6 mg tablet RxNorm: 172323 1 Tablet(s) PO BID No Start Da te 05/01/2013 Inactive Medrol (Nicholas) 4 mg tablets in a dose pack RxNorm: 271278 Tablet(s) PO As Directed No Start Date 02/27/2017 Inactive hydrocodone 5 mg-acetaminophen 325 mg tablet RxNorm: 608355 1 Tablet(s) PO Q4H as needed for pain No Start Date 12/09/2013 Inactive ranitidine 150 mg Tab RxNorm: 6034909 1 Tablet(s) PO BID No Start D ate 04/13/2010 Inactive Allopurinol 100 mg Tab RxNorm: 538636 1 Tablet(s) PO BID No Start D ate 09/15/2009 Inactive coenzyme Q10 200 mg capsule RxNorm: 549489 1 Capsule(s) PO QD No St art Date 03/30/2015 Inactive Mobic 7.5 mg tablet RxNorm: 147620 1 Tablet(s) PO QD No Start Date Inactive Osteo Bi-Flex (5-Loxin) 1,500 mg-400 unit-100 mg tablet RxNo rm: 1 Tablet(s) PO BID No Start Date 03/30/2015 Inactive hydrocodone-acetaminophen 7.5 mg-325 mg Tab RxNorm: 647727 1-2 Tablet(s) PO Q4-6H No Start Date 08/03/2011 Inactive as needed for pa in Neurontin 300 mg capsule RxNorm: 763204 1 Capsule(s) PO QD No Start Date 12/09/2013 Inactive Medrol (Nicholas) 4 mg Tabs in a Dose Pack RxNorm: 744468 Tablet(s) PO N o Start Date 12/08/2010 Inactive as directed Vitamin D2 1,000 unit capsule RxNorm: 671997 1 Capsule(s) PO QD No Start Date 03/30/2015 Inactive Flexeril 10 mg Tab RxNorm: 000700 1 Tablet(s) PO TID No Start Date Inactive for spasm Medication Administered No Medication Administered data Immunizations No Immunization data Results Observation Observation Code Item Item Code Result Date S ervice Location C DIFF MOL 5798804 C Diff Mol Int Negative 11/02/2018 Unk nown C Diff An 82509315 C Diff Analyzer Indeterminate 9 Unknown GFR CALC 9509631 GFR Non Afr Amr >60 mL/min 11/01/2018 Un known GFR CALC 4749634 GFR Afr Amr >60 mL/min 11/01/[address] LDL 1508894 HDL CHOLESTEROL 46 mg/dL 11/01/[address] LDL 7050818 Cholesterol 198 mg/dL 11/01/[address] LDL 0143133 Triglyceride 104 mg/dL 11/01/[address] LDL 0012167 LDL Direct 158 mg/dL 11/01/[address] LDL 5811183 NON-HDL Chol 152 mg/dL 11/01/2018 Unkno wn THYROID STIMULATING HORMONE 80489 TSH 1.276 uIU/mL 11/01/2018 Unknown COMPREHENSIVE METABOLIC 35486 AST 22 U/L 2018 Unknown COMPREHENSIVE METABOLIC 52003 ALT 17 U/L 2018 Unknown COMPREHENSIVE METABOLIC 61312 BUN 16 mg/dL 2018 Unknown COMPREHENSIVE METABOLIC 58028 ALBUMIN 4.3 g/dL 2018 Unknown COMPREHENSIVE METABOLIC 61541 CHLORIDE 103 mmol/L 11/01 Unknown COMPREHENSIVE METABOLIC 29604 Bili Total 0.9 mg/dL 11/01 Unknown COMPREHENSIVE METABOLIC 46228 ALK PHOS 62 U/L 2018 Unknown COMPREHENSIVE METABOLIC 81330 SODIUM 138 mmol/L 11/01 Unknown COMPREHENSIVE METABOLIC 39234 CREATININE 0.87 mg/dL 10/09 Unknown COMPREHENSIVE METABOLIC 25496 CALCIUM 9.2 mg/dL 2018 Unknown COMPREHENSIVE METABOLIC 96771 POTASSIUM 4.1 mmol/L 11/01 Unknown COMPREHENSIVE METABOLIC 26950 Total Protein 7.2 g/dL Unknown COMPREHENSIVE METABOLIC 19854 Glucose 81 mg/dL 2018 Unknown COMPREHENSIVE METABOLIC 58582 Bicarbonate 18 mmol/L 10/09 Unknown COMPREHENSIVE METABOLIC 61602 AGAP 17 mmol/L 2018 Unknown COMPLETE BLOOD COUNT 5681219 WBC 8.8 10e9/L 11/02/19 19 Unknown COMPLETE BLOOD COUNT 5049301 RBC 4.54 10e12/L 2018 Unknown COMPLETE BLOOD COUNT 4905621 HEMOGLOBIN 14.4 g/dL 11/02/19 19 Unknown COMPLETE BLOOD COUNT 0925223 HEMATOCRIT 44.0 % 11/02/19 19 Unknown COMPLETE BLOOD COUNT 1019042 MCV 96.9 fL 9 Unknown COMPLETE BLOOD COUNT 0408243 MCH 31.7 pg 9 Unknown COMPLETE BLOOD COUNT 2472938 MCHC 32.7 g/dL 9 Unknown COMPLETE BLOOD COUNT 6952870 PLATELET COUNT 239 10e9/L Unknown COMPLETE BLOOD COUNT 7352288 Mean Plt Volume 10.5 fL Unknown COMPLETE BLOOD COUNT 2702607 NRBC Absolute 0.00 10e9/L Unknown COMPLETE BLOOD COUNT 0444787 Neut Auto 65.2 % 9 Unknown COMPLETE BLOOD COUNT 1602053 NRBC/100 WBC 0.0 2018 Unknown COMPLETE BLOOD COUNT 3530247 Lymph Auto 23.1 % 11/02/19 19 Unknown COMPLETE BLOOD COUNT 4391851 [place] Auto 9.5 % 9 Unknown COMPLETE BLOOD COUNT 9571311 RDW 12.2 % 9 Unknown COMPLETE BLOOD COUNT 5916596 Eos Auto 1.7 % 9 Unknown COMPLETE BLOOD COUNT 6402752 Baso Auto 0.3 % 9 Unknown COMPLETE BLOOD COUNT 0648520 Neutrophil Abs 5.73 10e9/L Unknown COMPLETE BLOOD COUNT 5535784 Imm Gran Auto 0.2 % 11/01 Unknown COMPLETE BLOOD COUNT 0138228 Lymphocyte Abs 2.03 10e9/L Unknown COMPLETE BLOOD COUNT 2148704 Monocyte Abs 0.84 10e9/L 10/09 Unknown COMPLETE BLOOD COUNT 3475610 Eosinophil Abs 0.15 10e9/L Unknown COMPLETE BLOOD COUNT 0556641 RDW-SD 43.4 fL 9 Unknown COMPLETE BLOOD COUNT 8412519 Basophil Abs 0.03 10e9/L 10/09 Unknown COMPLETE BLOOD COUNT 6498736 Imm Gran Abs 0.02 10e9/L 10/09 Unknown COMPREHENSIVE METABOLIC 71476 AST 17 U/L 2016 Unknown COMPREHENSIVE METABOLIC 08584 ALT 16 U/L 2016 Unknown COMPREHENSIVE METABOLIC 26270 BUN 15 mg/dL 2016 Unknown COMPREHENSIVE METABOLIC 37585 ALBUMIN 4.4 g/dL 2016 Unknown COMPREHENSIVE METABOLIC 30660 CHLORIDE 104 mmol/L 03/29 Unknown COMPREHENSIVE METABOLIC 15063 Bili Total 0.5 mg/dL 03/29 Unknown COMPREHENSIVE METABOLIC 88903 ALK PHOS 56 U/L 2016 Unknown COMPREHENSIVE METABOLIC 73436 SODIUM 139 mmol/L 03/29 Unknown COMPREHENSIVE METABOLIC 44081 CREATININE 0.88 mg/dL 03/11 Unknown COMPREHENSIVE METABOLIC 16496 CALCIUM 9.8 mg/dL 2016 Unknown COMPREHENSIVE METABOLIC 27159 POTASSIUM 4.2 mmol/L 03/29 Unknown COMPREHENSIVE METABOLIC 03043 Total Protein 6.8 g/dL Unknown COMPREHENSIVE METABOLIC 21056 Glucose 100 mg/dL 2016 Unknown COMPREHENSIVE METABOLIC 98005 Bicarbonate 30 mmol/L 03/11 Unknown COMPREHENSIVE METABOLIC 11693 AGAP 5 mmol/L 2016 Unknown THYROID STIMULATING HORMONE 50559 TSH 1.077 uIU/mL 03/29/2017 Unknown URIC ACID 08393 URIC ACID 5.2 mg/dL 03/29/2017 Unknown FREE T4 20444 T4 Free 1.04 ng/dL 03/29/2017 Unknown ERYTHROCYTE SEDIMENTATION RATE 85783 Sed Rate 21 mm/hr 03/29/2017 Unknown COMPLETE BLOOD COUNT 2242200 WBC 5.9 10e9/L 03/29/20 17 Unknown COMPLETE BLOOD COUNT 8360921 RBC 4.52 10e12/L 2016 Unknown COMPLETE BLOOD COUNT 1173761 HEMOGLOBIN 14.6 g/dL 03/29/20 17 Unknown COMPLETE BLOOD COUNT 2739457 HEMATOCRIT 44.7 % 03/29/20 17 Unknown COMPLETE BLOOD COUNT 4028985 MCV 98.9 fL 7 Unknown COMPLETE BLOOD COUNT 2143470 MCH 32.3 pg 7 Unknown COMPLETE BLOOD COUNT 3090973 MCHC 32.7 g/dL 7 Unknown COMPLETE BLOOD COUNT 9950135 PLATELET COUNT 262 10e9/L Unknown COMPLETE BLOOD COUNT 5270351 Mean Plt Volume 10.1 fL Unknown COMPLETE BLOOD COUNT 9427118 Neut Auto 44.2 % 7 Unknown COMPLETE BLOOD COUNT 3706094 Lymph Auto 41.5 % 03/29/20 17 Unknown COMPLETE BLOOD COUNT 2458851 [place] Auto 11.2 % 7 Unknown COMPLETE BLOOD COUNT 3709642 RDW 12.3 % 7 Unknown COMPLETE BLOOD COUNT 7808094 Eos Auto 2.6 % 7 Unknown COMPLETE BLOOD COUNT 8193347 Baso Auto 0.5 % 7 Unknown COMPLETE BLOOD COUNT 6615458 Neutrophil Abs 2.61 10e9/L Unknown COMPLETE BLOOD COUNT 6611111 Lymphocyte Abs 2.45 10e9/L Unknown COMPLETE BLOOD COUNT 4368337 Monocyte Abs 0.66 10e9/L 03/11 Unknown COMPLETE BLOOD COUNT 4762170 Eosinophil Abs 0.15 10e9/L Unknown COMPLETE BLOOD COUNT 7369683 RDW-SD 43.7 fL 7 Unknown COMPLETE BLOOD COUNT 1355986 Basophil Abs 0.03 10e9/L 03/11 Unknown LIPID GROUP 15399 Cholesterol 248 mg/dL 03/29/2017 Unkno wn LIPID GROUP 40692 Triglyceride 87 mg/dL 03/29/2017 Unkn own LIPID GROUP 57949 HDL CHOLESTEROL 49 mg/dL 03/29/2017 U nknown LIPID GROUP 72708 Chol/HDL Ratio 5.06 ratio 03/29/2017 U nknown LIPID GROUP 99517 NON-HDL Chol 199 mg/dL 03/29/2017 Unkn own LIPID GROUP 73942 LDL Cholesterol 182 mg/dL 03/29/2017 U nknown GFR CALC 5455703 GFR Non Afr Amr >60 mL/min 03/29/2017 Un known GFR CALC 5072943 GFR Afr Amr >60 mL/min 03/29/2017 Unknow n HIV AG/AB 1767645 HIV Ag/Ab Non-Reactive 03/15/2017 Unkno wn VIRAL HEPATITIS PROFILE #2 92987 Hep A IgM Non-Reactive 03/15/2017 Unknown VIRAL HEPATITIS PROFILE #2 22129 Hep B Core IgM Non-Reac tive 03/15/2017 Unknown VIRAL HEPATITIS PROFILE #2 08497 Hepatitis C Ab Non-Reac tive 03/15/2017 Unknown VIRAL HEPATITIS PROFILE #2 60977 Hep Bs Ag Non-Reactive 03/15/2017 Unknown COMPREHENSIVE METABOLIC 03480 AST 23 U/L 2014 Unknown COMPREHENSIVE METABOLIC 78852 ALT 21 IU/L 2014 Unknown COMPREHENSIVE METABOLIC 42054 BUN 13 MG/DL 2014 Unknown COMPREHENSIVE METABOLIC 09108 ALBUMIN 4.3 GM/DL 2014 Unknown COMPREHENSIVE METABOLIC 41661 CHLORIDE 105 MMOL/L 01/07 Unknown COMPREHENSIVE METABOLIC 89322 BILI TOT 0.7 MG/DL 2014 Unknown COMPREHENSIVE METABOLIC 38500 ALK PHOS 51 U/L 2014 Unknown COMPREHENSIVE METABOLIC 35892 SODIUM 139 MMOL/L 01/07 Unknown COMPREHENSIVE METABOLIC 72965 CREATININE 0.85 MG/DL 12/11 Unknown COMPREHENSIVE METABOLIC 52284 CALCIUM 9.5 MG/DL 2014 Unknown COMPREHENSIVE METABOLIC 50393 POTASSIUM 4.4 MMOL/L 01/07 Unknown COMPREHENSIVE METABOLIC 42716 PROT TOT 6.7 GM/DL 2014 Unknown COMPREHENSIVE METABOLIC 49936 Glucose 100 MG/DL 2014 Unknown COMPREHENSIVE METABOLIC 89046 BICARB 27 MMOL/L 2014 Unknown COMPREHENSIVE METABOLIC 95090 ANION GAP 7 MEQ/L 2014 Unknown THYROID STIMULATING HORMONE 06377 TSH 0.900 uIU/ML 01/07/2015 Unknown COMPLETE BLOOD COUNT 8805950 WBC 4.9 10e9/L 01/08/20 15 Unknown COMPLETE BLOOD COUNT 7360606 RBC 4.71 10e12/L 2014 Unknown COMPLETE BLOOD COUNT 4110266 HGB 15.3 g/dL 5 Unknown COMPLETE BLOOD COUNT 7003776 HCT DET 46.1 % 5 Unknown COMPLETE BLOOD COUNT 1499290 MCV 97.9 fL 5 Unknown COMPLETE BLOOD COUNT 6604031 MCH 32.5 pg 5 Unknown COMPLETE BLOOD COUNT 3263046 MCHC 33.2 g/dL 5 Unknown COMPLETE BLOOD COUNT 9464290 PLT 227 10e9/L 01/08/20 15 Unknown COMPLETE BLOOD COUNT 7152791 MPV 10.9 fL 5 Unknown COMPLETE BLOOD COUNT 3514466 VERON[place] % 53.0 % 5 Unknown COMPLETE BLOOD COUNT 2722551 LY % 35.8 % 5 Unknown COMPLETE BLOOD COUNT 5888278 MON % 8.6 % 5 Unknown COMPLETE BLOOD COUNT 6728995 EOS % 2.2 % 5 Unknown COMPLETE BLOOD COUNT 1244075 BASO % 0.4 % 5 Unknown COMPLETE BLOOD COUNT 9792987 RDW 12.9 % 5 Unknown COMPLETE BLOOD COUNT 1896348 ABS VERONIQUE 2.60 10e9/L 015 Unknown COMPLETE BLOOD COUNT 0009485 ABS LYMPH 1.75 10e9/L 015 Unknown COMPLETE BLOOD COUNT 3517272 ABS MONO 0.42 10e9/L 015 Unknown COMPLETE BLOOD COUNT 1818141 ABS EOS 0.11 10e9/L 015 Unknown COMPLETE BLOOD COUNT 7507761 ABS BASO 0.02 10e9/L 015 Unknown COMPLETE BLOOD COUNT 5343062 RDW-SD 45.7 fL 5 Unknown URIC ACID 69693 URIC ACID 6.7 MG/DL 01/07/2015 Unknown LIPID GROUP 26314 HDL TEST 52 MG/DL 01/07/2015 Unknown LIPID GROUP 80022 TRIG 158 MG/DL 01/07/2015 Unknown LIPID GROUP 69167 TEST LDL 157 MG/DL 01/07/2015 Unknown LIPID GROUP 77548 CHOL 241 MG/DL 01/07/2015 Unknown LIPID GROUP 70861 RCHOL/HDL 4.63 RATIO 01/07/2015 Unknow n LIPID GROUP 12736 NON-HDL CH 189 MG/DL 01/07/2015 Unknow n GFR CALC 4973950 GFR AA >60 ML/MIN 01/07/2015 Unknown GFR CALC 3720539 GFR NON-AA >60 ML/MIN 01/07/2015 Unknown PSA EQUIMOLAR JONATAN 89227 PSA EQ 2.18 NG/ML 5 Unknown FREE T4 68956 FREE T4 1.04 NG/DL 01/07/2015 Unknown GFR CALC 3340469 GFR AA >60 ML/MIN 12/11/2013 Unknown GFR CALC 7184254 GFR NON-AA >60 ML/MIN 12/11/2013 Unknown LIPID GROUP 86810 HDL TEST 54 MG/DL 12/11/2013 Unknown LIPID GROUP 63496 TRIG 81 MG/DL 12/11/2013 Unknown LIPID GROUP 35294 TEST LDL 185 MG/DL 12/11/2013 Unknown LIPID GROUP 41921 CHOL 255 MG/DL 12/11/2013 Unknown LIPID GROUP 38026 RCHOL/HDL 4.72 RATIO 12/11/2013 Unknow n LIPID GROUP 83860 NON-HDL CH 201 MG/DL 12/11/2013 Unknow n URIC ACID 08076 URIC ACID 7.1 MG/DL 12/11/2013 Unknown PSA EQUIMOLAR JONATAN 57333 PSA EQ 3.80 NG/ML 4 Unknown COMPLETE BLOOD COUNT 5468631 WBC 5.9 10e9/L 12/12/19 14 Unknown COMPLETE BLOOD COUNT 7569633 RBC 4.40 10e12/L 2013 Unknown COMPLETE BLOOD COUNT 9440078 HGB 14.5 g/dL 4 Unknown COMPLETE BLOOD COUNT 3029119 HCT DET 43.6 % 4 Unknown COMPLETE BLOOD COUNT 5057056 MCV 99.1 fL 4 Unknown COMPLETE BLOOD COUNT 2182401 MCH 33.0 pg 4 Unknown COMPLETE BLOOD COUNT 4889011 MCHC 33.3 g/dL 4 Unknown COMPLETE BLOOD COUNT 1990567 PLT 289 10e9/L 12/12/19 14 Unknown COMPLETE BLOOD COUNT 7533526 MPV 10.2 fL 4 Unknown COMPLETE BLOOD COUNT 3614476 [place] % 47.9 % 4 Unknown COMPLETE BLOOD COUNT 4979254 LY % 40.6 % 4 Unknown COMPLETE BLOOD COUNT 8528403 MON % 8.8 % 4 Unknown COMPLETE BLOOD COUNT 8820411 EOS % 2.2 % 4 Unknown COMPLETE BLOOD COUNT 4801405 BASO % 0.5 % 4 Unknown COMPLETE BLOOD COUNT 6488338 RDW 12.9 % 4 Unknown COMPLETE BLOOD COUNT 2415212 ABS [place] 2.83 10e9/L 014 Unknown COMPLETE BLOOD COUNT 1988417 ABS LYMPH 2.40 10e9/L 014 Unknown COMPLETE BLOOD COUNT 5847034 ABS MONO 0.52 10e9/L 014 Unknown COMPLETE BLOOD COUNT 5202733 ABS EOS 0.13 10e9/L 014 Unknown COMPLETE BLOOD COUNT 4311666 ABS BASO 0.03 10e9/L 014 Unknown COMPLETE BLOOD COUNT 5054545 RDW-SD 45.7 fL 4 Unknown THYROID STIMULATING HORMONE 22977 TSH 1.013 uIU/ML 12/11/2013 Unknown COMPREHENSIVE METABOLIC 68902 AST 20 U/L 2013 Unknown COMPREHENSIVE METABOLIC 22525 ALT 16 IU/L 2013 Unknown COMPREHENSIVE METABOLIC 48149 BUN 17 MG/DL 2013 Unknown COMPREHENSIVE METABOLIC 47859 ALBUMIN 4.6 GM/DL 2013 Unknown COMPREHENSIVE METABOLIC 23192 CHLORIDE 107 MMOL/L 12/11 Unknown COMPREHENSIVE METABOLIC 23472 BILI TOT 0.7 MG/DL 2013 Unknown COMPREHENSIVE METABOLIC 09626 ALK PHOS 53 U/L 2013 Unknown COMPREHENSIVE METABOLIC 16261 SODIUM 140 MMOL/L 12/11 Unknown COMPREHENSIVE METABOLIC 35528 CREATININE 0.84 MG/DL 06/2013 Unknown COMPREHENSIVE METABOLIC 36047 CALCIUM 9.7 MG/DL 2013 Unknown COMPREHENSIVE METABOLIC 13744 POTASSIUM 4.6 MMOL/L 12/11 Unknown COMPREHENSIVE METABOLIC 56115 PROT TOT 6.9 GM/DL 2013 Unknown COMPREHENSIVE METABOLIC 91869 Glucose 97 MG/DL 2013 Unknown COMPREHENSIVE METABOLIC 76852 BICARB 25 MMOL/L 2013 Unknown COMPREHENSIVE METABOLIC 21417 ANION GAP 8 MEQ/L 2013 Unknown FREE T4 14988 FREE T4 1.11 NG/DL 12/11/2013 Unknown ASSAY OF CREATININE 55385 CREATININE 0.98 MG/DL 09/15/19 12 Unknown URIC ACID 70911 URIC ACID 4.9 MG/DL 09/15/2011 Unknown GFR CALC 7651222 GFR AA >60 ML/MIN 09/15/2011 Unknown GFR CALC 5323128 GFR NON-AA >60 ML/MIN 09/15/2011 Unknown THYROID STIMULATING HORMONE 24927 TSH 1.687 uIU/ML 08/01/2011 Unknown FREE T4 40440 FREE T4 0.96 NG/DL 08/01/2011 Unknown SJOGRENS 4873755 SJOGRN A <20 EU/ML 08/01/2011 Unknown SJOGRENS 5085390 SJOGRN B <20 EU/ML 08/01/2011 Unknown SJOGRENS 1825408 NONHIS INT SEE BELO 08/01/2011 Unknown THYRO PERX 2978638 THYRO PERX 175.34 UNITS 07/30/2011 Unkn own DNA AB 5917093 DNA AB 32 IU/ML 07/29/2011 Unknown TITER WENDI 9607372 TITR WENDI 1:160 07/29/2011 Unknown TITER WENDI 6422893 PATTERN NUCLEOLR 07/29/2011 Unknown ANTINUCLEAR ANTIBODY SCREEN 06144 WENDI SCR POSITIVE Unknown COMPREHENSIVE METABOLIC 58685 AST 23 U/L 2011 Unknown COMPREHENSIVE METABOLIC 79298 ALT 26 IU/L 2011 Unknown COMPREHENSIVE METABOLIC 43121 BUN 18 MG/DL 2011 Unknown COMPREHENSIVE METABOLIC 73663 ALBUMIN 4.6 GM/DL 2011 Unknown COMPREHENSIVE METABOLIC 42300 CHLORIDE 105 MMOL/L 07/27 Unknown COMPREHENSIVE METABOLIC 51359 BILI TOT 0.5 MG/DL 2011 Unknown COMPREHENSIVE METABOLIC 73409 ALK PHOS 63 U/L 2011 Unknown COMPREHENSIVE METABOLIC 63978 SODIUM 138 MMOL/L 07/27 Unknown COMPREHENSIVE METABOLIC 71671 CREATININE 0.92 MG/DL 07/09 Unknown COMPREHENSIVE METABOLIC 16628 CALCIUM 9.4 MG/DL 2011 Unknown COMPREHENSIVE METABOLIC 94772 POTASSIUM 3.9 MMOL/L 07/27 Unknown COMPREHENSIVE METABOLIC 49772 PROT TOT 6.7 GM/DL 2011 Unknown COMPREHENSIVE METABOLIC 95010 Glucose 101 MG/DL 2011 Unknown COMPREHENSIVE METABOLIC 72856 BICARB 24 MMOL/L 2011 Unknown COMPREHENSIVE METABOLIC 26343 ANION GAP 9 MEQ/L 2011 Unknown GFR CALC 1906097 GFR AA >60 ML/MIN 07/28/2011 Unknown GFR CALC 5716017 GFR NON-AA >60 ML/MIN 07/28/2011 Unknown ERYTHROCYTE SEDIMENTATION RATE 46366 ESR 2 MM/HR 07/28/2011 Unknown URIC ACID 55113 URIC ACID 5.8 MG/DL 07/28/2011 Unknown C-REACTIVE PROTEIN (CRP) QUANT 82034 CRP 0.2 MG/DL 07/28/2011 Unknown TITER WENDI 7182764 TITR WENDI 1:160 05/26/2011 Unknown TITER WENDI 2387523 PATTERN NUCLEOLR 05/26/2011 Unknown RA FACTOR 00789 RA FACTOR <20.0 IU/ML 05/26/2011 Unknown ANTINUCLEAR ANTIBODY SCREEN 67091 WENDI SCR POSITIVE Unknown URIC ACID 75170 URIC ACID 8.7 MG/DL 05/25/2011 Unknown PSA EQUIMOLAR JONATAN 21414 PSA EQ 2.79 NG/ML 2 Unknown LIPID GROUP 91541 HDL TEST 47 MG/DL 05/25/2011 Unknown LIPID GROUP 50281 TRIG 198 MG/DL 05/25/2011 Unknown LIPID GROUP 07758 TEST LDL 180 MG/DL 05/25/2011 Unknown LIPID GROUP 51582 CHOL 267 MG/DL 05/25/2011 Unknown LIPID GROUP 44478 RCHOL/HDL 5.68 RATIO 05/25/2011 Unknow n COMPREHENSIVE METABOLIC 70386 AST 21 U/L 2011 Unknown COMPREHENSIVE METABOLIC 82186 ALT 21 IU/L 2011 Unknown COMPREHENSIVE METABOLIC 66121 BUN 16 MG/DL 2011 Unknown COMPREHENSIVE METABOLIC 61123 ALBUMIN 4.4 GM/DL 2011 Unknown COMPREHENSIVE METABOLIC 53788 CHLORIDE 105 MMOL/L 05/25 Unknown COMPREHENSIVE METABOLIC 88674 BILI TOT 0.7 MG/DL 2011 Unknown COMPREHENSIVE METABOLIC 79354 ALK PHOS 60 U/L 2011 Unknown COMPREHENSIVE METABOLIC 26425 SODIUM 139 MMOL/L 05/25 Unknown COMPREHENSIVE METABOLIC 76945 CREATININE 0.92 MG/DL 05/11 Unknown COMPREHENSIVE METABOLIC 59269 CALCIUM 9.4 MG/DL 2011 Unknown COMPREHENSIVE METABOLIC 61992 POTASSIUM 4.1 MMOL/L 05/25 Unknown COMPREHENSIVE METABOLIC 95704 PROT TOT 7.0 GM/DL 2011 Unknown COMPREHENSIVE METABOLIC 58557 Glucose 108 MG/DL 2011 Unknown COMPREHENSIVE METABOLIC 25367 BICARB 25 MMOL/L 2011 Unknown COMPREHENSIVE METABOLIC 00823 ANION GAP 9 MEQ/L 2011 Unknown GFR CALC 8430006 GFR AA >60 ML/MIN 05/25/2011 Unknown GFR CALC 7693140 GFR NON-AA >60 ML/MIN 05/25/2011 Unknown COMPLETE BLOOD COUNT 56760 WBC 5.6 10e9/L 05/25/19 12 Unknown COMPLETE BLOOD COUNT 10000 RBC 5.01 10e12/L 2011 Unknown COMPLETE BLOOD COUNT 68986 HGB 15.8 g/dL 2 Unknown COMPLETE BLOOD COUNT 27741 HCT DET 46.1 % 2 Unknown COMPLETE BLOOD COUNT 59020 MCV 92.0 fL 2 Unknown COMPLETE BLOOD COUNT 68022 MCH 31.5 pg 2 Unknown COMPLETE BLOOD COUNT 79203 MCHC 34.3 g/dL 2 Unknown COMPLETE BLOOD COUNT 12043 PLT 246 10e9/L 05/25/19 12 Unknown COMPLETE BLOOD COUNT 76507 MPV 10.3 fL 2 Unknown COMPLETE BLOOD COUNT 39010 VERONIQUE % 47.1 % 2 Unknown COMPLETE BLOOD COUNT 48204 LY % 41.0 % 2 Unknown COMPLETE BLOOD COUNT 30245 MON % 8.9 % 2 Unknown COMPLETE BLOOD COUNT 21288 EOS % 2.5 % 2 Unknown COMPLETE BLOOD COUNT 86016 BASO % 0.5 % 2 Unknown COMPLETE BLOOD COUNT 74777 RDW 12.7 % 2 Unknown COMPLETE BLOOD COUNT 75293 ABS VERONIQUE 2.64 10e9/L 012 Unknown COMPLETE BLOOD COUNT 41882 ABS LYMPH 2.30 10e9/L 012 Unknown COMPLETE BLOOD COUNT 43320 ABS MONO 0.50 10e9/L 012 Unknown COMPLETE BLOOD COUNT 25260 ABS EOS 0.14 10e9/L 012 Unknown COMPLETE BLOOD COUNT 36821 ABS BASO 0.03 10e9/L 012 Unknown COMPLETE BLOOD COUNT 94579 RDW-SD 41.3 fL 2 Unknown COMPREHENSIVE METABOLIC 46529 AST 18 U/L 2010 Unknown COMPREHENSIVE METABOLIC 70392 ALT 14 IU/L 2010 Unknown COMPREHENSIVE METABOLIC 13208 BUN 12 MG/DL 2010 Unknown COMPREHENSIVE METABOLIC 06169 ALBUMIN 4.6 GM/DL 2010 Unknown COMPREHENSIVE METABOLIC 63812 CHLORIDE 102 MMOL/L 02/01 Unknown COMPREHENSIVE METABOLIC 60175 BILI TOT 0.6 MG/DL 2010 Unknown COMPREHENSIVE METABOLIC 31951 ALK PHOS 66 U/L 2010 Unknown COMPREHENSIVE METABOLIC 41182 SODIUM 139 MMOL/L 02/01 Unknown COMPREHENSIVE METABOLIC 22733 CREATININE 0.92 MG/DL 01/09 Unknown COMPREHENSIVE METABOLIC 81007 CALCIUM 9.8 MG/DL 2010 Unknown COMPREHENSIVE METABOLIC 26586 POTASSIUM 4.1 MMOL/L 02/01 Unknown COMPREHENSIVE METABOLIC 53075 PROT TOT 7.0 GM/DL 2010 Unknown COMPREHENSIVE METABOLIC 78979 Glucose 101 MG/DL 2010 Unknown COMPREHENSIVE METABOLIC 14718 BICARB 25 MMOL/L 2010 Unknown COMPREHENSIVE METABOLIC 42871 ANION GAP 12 MEQ/L 2010 Unknown GFR CALC [id number] GFR AA >60 ML/MIN 02/01/2011 Unknown GFR CALC [id number] GFR NON-AA >60 ML/MIN 02/01/2011 Unknown LIPID GROUP 00302 HDL TEST 44 MG/DL 02/01/2011 Unknown LIPID GROUP 13448 TRIG 157 MG/DL 02/01/2011 Unknown LIPID GROUP 71018 TEST LDL 193 MG/DL 02/01/2011 Unknown LIPID GROUP 63416 CHOL 268 MG/DL 02/01/2011 Unknown LIPID GROUP 66677 RCHOL/HDL 6.09 RATIO 02/01/2011 Unknow n FREE T4 21448 FREE T4 1.04 NG/DL 02/01/2011 Unknown COMPLETE BLOOD COUNT 68754 WBC 6.4 10e9/L 02/02/20 11 Unknown COMPLETE BLOOD COUNT 57811 RBC 4.56 10e12/L 2010 Unknown COMPLETE BLOOD COUNT 44592 HGB 14.4 g/dL 1 Unknown COMPLETE BLOOD COUNT 76445 HCT DET 43.0 % 1 Unknown COMPLETE BLOOD COUNT 99618 MCV 94.3 fL 1 Unknown COMPLETE BLOOD COUNT 74390 MCH 31.6 pg 1 Unknown COMPLETE BLOOD COUNT 29445 MCHC 33.5 g/dL 1 Unknown COMPLETE BLOOD COUNT 27745 PLT 300 10e9/L 02/02/20 11 Unknown COMPLETE BLOOD COUNT 43673 MPV 9.9 fL 1 Unknown COMPLETE BLOOD COUNT 26344 VERONIQUE % 38.5 % 1 Unknown COMPLETE BLOOD COUNT 13155 LY % 49.1 % 1 Unknown COMPLETE BLOOD COUNT 97770 MON % 10.1 % 1 Unknown COMPLETE BLOOD COUNT 17647 EOS % 1.7 % 1 Unknown COMPLETE BLOOD COUNT 06513 BASO % 0.6 % 1 Unknown COMPLETE BLOOD COUNT 88761 RDW 15.1 % 1 Unknown COMPLETE BLOOD COUNT 44224 ABS VERONIQUE 2.46 10e9/L 011 Unknown COMPLETE BLOOD COUNT 43293 ABS LYMPH 3.14 10e9/L 011 Unknown COMPLETE BLOOD COUNT 66461 ABS MONO 0.65 10e9/L 011 Unknown COMPLETE BLOOD COUNT 63844 ABS EOS 0.11 10e9/L 011 Unknown COMPLETE BLOOD COUNT 20656 ABS BASO 0.04 10e9/L 011 Unknown COMPLETE BLOOD COUNT 29622 RDW-SD 50.6 fL 1 Unknown THYROID STIMULATING HORMONE 06156 TSH 1.128 uIU/ML 02/01/2011 Unknown PSA EQUIMOLAR JONATAN 02969 PSA EQ 3.83 NG/ML 1 Unknown VCA AB G/M 1297683 EBV G VCA 3.34 12/03/2010 Unknown VCA AB G/M 9921166 EBV M VCA 0.12 12/03/2010 Unknown EB GARY AG [id number] EB GARY AG 0.47 12/03/2010 Unknown EB NUCL AB [id number] EB NUCL AB 3.72 12/03/2010 Unknown COMPLETE BLOOD COUNT 21870 WBC 8.0 10e9/L 12/03/19 11 Unknown COMPLETE BLOOD COUNT 27921 RBC 4.93 10e12/L 2010 Unknown COMPLETE BLOOD COUNT 89655 HGB 15.7 g/dL 1 Unknown COMPLETE BLOOD COUNT 82222 HCT DET 45.4 % 1 Unknown COMPLETE BLOOD COUNT 37367 MCV 92.1 fL 1 Unknown COMPLETE BLOOD COUNT 98486 MCH 31.8 pg 1 Unknown COMPLETE BLOOD COUNT 29244 MCHC 34.6 g/dL 1 Unknown COMPLETE BLOOD COUNT 36971 PLT 248 10e9/L 12/03/19 11 Unknown COMPLETE BLOOD COUNT 65117 MPV 10.4 fL 1 Unknown COMPLETE BLOOD COUNT 74379 VERONIQUE % 74.0 % 1 Unknown COMPLETE BLOOD COUNT 39591 LY % 19.6 % 1 Unknown COMPLETE BLOOD COUNT 49963 MON % 5.2 % 1 Unknown COMPLETE BLOOD COUNT 20268 EOS % 1.1 % 1 Unknown COMPLETE BLOOD COUNT 03136 BASO % 0.1 % 1 Unknown COMPLETE BLOOD COUNT 27703 RDW 12.5 % 1 Unknown COMPLETE BLOOD COUNT 48955 ABS VERONIQUE 5.92 10e9/L 011 Unknown COMPLETE BLOOD COUNT 79639 ABS LYMPH 1.57 10e9/L 011 Unknown COMPLETE BLOOD COUNT 71500 ABS MONO 0.42 10e9/L 011 Unknown COMPLETE BLOOD COUNT 06288 ABS EOS 0.09 10e9/L 011 Unknown COMPLETE BLOOD COUNT 13769 ABS BASO 0.01 10e9/L 011 Unknown COMPLETE BLOOD COUNT 79330 RDW-SD 41.1 fL 1 Unknown URIC ACID 24039 URIC ACID 9.3 MG/DL 12/02/2010 Unknown Procedures Procedure Codes Date THER/PROPH/DIAG INJ SC/IM CPT-4: 04925 05/17/2019 TRIAMCINOLONE ACET INJ NOS CPT-4: J3301 05/17/2019 DRAINAGE OF SKIN ABSCESS CPT-4: 57131 01/23/2019 AEROBIC WOUND CULTURE & STN CPT-4: 59252 01/23/2019 ROUTINE VENIPUNCTURE CPT-4: 85027 03/29/2017 ASSAY THYROID STIM HORMONE CPT-4: 82928 03/29/2017 ASSAY OF FREE THYROXINE CPT-4: 19747 03/29/2017 COMPREHEN METABOLIC PANEL CPT-4: 57126 03/29/2017 COMPLETE CBC W/AUTO DIFF WBC CPT-4: 90027 03/29/2017 LIPID PANEL CPT-4: 90422 03/29/2017 ASSAY OF BLOOD/URIC ACID CPT-4: 14597 03/29/2017 RBC SED RATE AUTOMATED CPT-4: 40254 03/29/2017 ROUTINE VENIPUNCTURE CPT-4: 27138 03/15/2017 ACUTE HEPATITIS PANEL CPT-4: 25593 03/15/2017 HIV-1/HIV-2 1 RESULT ANTBDY CPT-4: 48723 03/15/2017 EXC TR-EXT B9+SHASHA 0.5 CM< CPT-4: 04169 03/15/2017 EXC TR-EXT B9+SHASHA 1.1-2 CM CPT-4: 57097 03/15/2017 URINALYSIS NONAUTO W/O SCOPE CPT-4: 17849 01/07/2015 URINE CULTURE/ COLONY COUNT CPT-4: 51025 01/07/2015 ROUTINE VENIPUNCTURE CPT-4: 62484 01/07/2015 ASSAY OF FREE THYROXINE CPT-4: 86078 01/07/2015 ASSAY THYROID STIM HORMONE CPT-4: 64681 01/07/2015 COMPREHEN METABOLIC PANEL CPT-4: 10728 01/07/2015 COMPLETE CBC W/AUTO DIFF WBC CPT-4: 80484 01/07/2015 LIPID PANEL CPT-4: 29898 01/07/2015 ASSAY OF PSA TOTAL CPT-4: 96636 01/07/2015 ASSAY OF BLOOD/URIC ACID CPT-4: 13321 01/07/2015 ROUTINE VENIPUNCTURE CPT-4: 37271 12/11/2013 ASSAY OF FREE THYROXINE CPT-4: 43880 12/11/2013 ASSAY THYROID STIM HORMONE CPT-4: 60659 12/11/2013 COMPREHEN METABOLIC PANEL CPT-4: 42690 12/11/2013 COMPLETE CBC W/AUTO DIFF WBC CPT-4: 28106 12/11/2013 LIPID PANEL CPT-4: 96895 12/11/2013 ASSAY OF BLOOD/URIC ACID CPT-4: 97902 12/11/2013 ASSAY OF PSA TOTAL CPT-4: 15901 12/11/2013 URINE CULTURE/ COLONY COUNT CPT-4: 30144 01/02/2013 AEROBIC WOUND CULTURE & STN CPT-4: 30693 10/10/2011 DRAINAGE OF SKIN ABSCESS CPT-4: 72633 10/10/2011 ASSAY OF CREATININE CPT-4: 90966 09/15/2011 ASSAY OF BLOOD/URIC ACID CPT-4: 67278 09/15/2011 ROUTINE VENIPUNCTURE CPT-4: 88807 07/28/2011 ANTINUCLEAR ANTIBODIES CPT-4: 89222 07/28/2011 RBC SED RATE AUTOMATED CPT-4: 08891 07/28/2011 ASSAY OF BLOOD/URIC ACID CPT-4: 32651 07/28/2011 COMPREHEN METABOLIC PANEL CPT-4: 89993 07/28/2011 C-REACTIVE PROTEIN CPT-4: 00134 07/28/2011 THYRO PERX CPT-4: 6591706 07/28/2011 DNA AB CPT-4: 2301294 07/28/2011 SJOGRENS CPT-4: 6379064 07/28/2011 ASSAY OF FREE THYROXINE CPT-4: 71517 07/28/2011 ASSAY THYROID STIM HORMONE CPT-4: 87117 07/28/2011 ROUTINE VENIPUNCTURE CPT-4: 58123 05/25/2011 COMPREHEN METABOLIC PANEL CPT-4: 74175 05/25/2011 COMPLETE CBC W/AUTO DIFF WBC CPT-4: 93959 05/25/2011 ANTINUCLEAR ANTIBODIES CPT-4: 62659 05/25/2011 RHEUMATOID FACTOR QUANT CPT-4: 67171 05/25/2011 ASSAY OF PSA TOTAL CPT-4: 36879 05/25/2011 ASSAY OF BLOOD/URIC ACID CPT-4: 53515 05/25/2011 LIPID PANEL CPT-4: 16858 05/25/2011 ROUTINE VENIPUNCTURE CPT-4: 56725 02/01/2011 ASSAY OF FREE THYROXINE CPT-4: 00266 02/01/2011 ASSAY THYROID STIM HORMONE CPT-4: 33546 02/01/2011 COMPREHEN METABOLIC PANEL CPT-4: 68804 02/01/2011 COMPLETE CBC W/AUTO DIFF WBC CPT-4: 91379 02/01/2011 LIPID PANEL CPT-4: 87031 02/01/2011 ASSAY OF PSA TOTAL CPT-4: 67267 02/01/2011 ROUTINE VENIPUNCTURE CPT-4: 52867 12/02/2010 ASSAY OF BLOOD/URIC ACID CPT-4: 38848 12/02/2010 EB VIRUS VCA G/M + EBNA + EA CPT-4: 32207|31731 x 2|75190 COMPLETE CBC W/AUTO DIFF WBC CPT-4: 51270 12/02/2010 COMPREHEN METABOLIC PANEL CPT-4: 96416 09/14/2009 ASSAY OF BLOOD/URIC ACID CPT-4: 34847 09/14/2009 ROUTINE VENIPUNCTURE CPT-4: 77847 09/14/2009 URINALYSIS NONAUTO W/O SCOPE CPT-4: 50708 09/01/2009 Vital Signs Date Vital 05/17/2019 Blood [...] 1: 118/64 Code: 8480-6 BMI: 29.7 Code: 13431-8 Heart Rate 1: 100 bpm Height: 5'6" Respiratory Rate: 22 bpm SpO2: 95% Tempera ture: 36.7 (C) / 98.0 (F) Weight: 187 lbs 02/27/2017 Blood Pressure 1: 132/76 Code: 8480-6 BMI: 30.8 Code: 29887-0 Heart Rate 1: 96 bpm Height: 5'6" Respiratory Rate: 22 bpm SpO2: 98% Tempera ture: 36.6 (C) / 97.8 (F) Weight: 194 lbs 03/31/2015 Blood Pressure 1: 128/90 Code: 8480-6 Heart Rate 1: 88 bpm Respiratory Rate: 20 bpm Temperature: 36.9 (C) / 98.4 (F) Weight: 192 lbs 01/07/2015 Blood Pressure 1: 132/80 Code: 8480-6 BMI: 30.2 Code: 12948-7 Heart Rate 1: 78 bpm Height: 5'6" Respiratory Rate: 22 bpm Temperature: 36 .7 (C) / 98.1 (F) Weight: 190 lbs 04/15/2014 Blood Pressure 1: 136/88 Code: 8480-6 BMI: 31.0 Code: 78560-1 Heart Rate 1: 84 bpm Height: 5'6" Respiratory Rate: 20 bpm Temperature: 36 .1 (C) / 97.0 (F) Weight: 192 lbs 12/10/2013 Blood Pressure 1: 142/90 Code: 8480-6 BMI: 29.1 Code: 30704-1 Heart Rate 1: 72 bpm Height: 5'7" Respiratory Rate: 20 bpm Temperature: 36 .6 (C) / 97.8 (F) Weight: 186 lbs 05/02/2013 Blood Pressure 1: 146/96 Code: 8480-6 BMI: 30.5 Code: 70170-9 Heart Rate 1: 88 bpm Height: 5'7" Respiratory Rate: 20 bpm Temperature: 37 .0 (C) / 98.6 (F) Weight: 195 lbs 01/02/2013 Blood Pressure 1: 132/84 Code: 8480-6 BMI: 30.2 Code: 71818-9 Heart Rate 1: 80 bpm Height: 5'7" Respiratory Rate: 20 bpm Temperature: 36 .9 (C) / 98.4 (F) Weight: 193 lbs 10/10/2011 Blood Pressure 1: 122/68 Code: 8480-6 BMI: 35.7 Code: 54993-9 Heart Rate 1: 84 bpm Height: 5'2" Temperature: 36.9 (C) / 98.5 (F) Weight: 195 lbs 08/12/2011 Blood Pressure 1: 110/80 Code: 8480-6 BMI: 36.9 Code: 54666-3 Heart Rate 1: 80 bpm Height: 5'2" Temperature: 36.4 (C) / 97.6 (F) Weight: 202 lbs 08/04/2011 Blood Pressure 1: 126/80 Code: 8480-6 BMI: 37.9 Code: 58685-9 Heart Rate 1: 76 bpm Height: 5'2" Respiratory Rate: 20 bpm Temperature: 37 .0 (C) / 98.6 (F) Weight: 207 lbs 05/24/2011 Blood Pressure 1: 122/82 Code: 8480-6 BMI: 37.7 Code: 87287-8 Heart Rate 1: 68 bpm Height: 5'2" Temperature: 36.7 (C) / 98.1 (F) Weight: 206 lbs 04/15/2011 Blood Pressure 1: 128/82 Code: 8480-6 BMI: 37.1 Code: 62239-0 Heart Rate 1: 68 bpm Height: 5'2" [...] 1: 106/62 Code: 8480-6 BMI: 36.8 Code: 06288-5 Heart Rate 1: 90 bpm Height: 5'2" SpO2: 94% Temperature: 36.4 (C) / 97.6 (F) Weight: 201 lbs 12/02/2010 Blood Pressure 1: 142/90 Code: 8480-6 BMI: 36.8 Code: 65333-7 Heart Rate 1: 96 bpm Height: 5'2" [...] success Encounters Encounter Performer Location Codes Date ([id number]) OFFICE/OUTPATIENT VISIT EST Diagnosis: Acute contact dermatitis[ICD10: L25.9] Diagnosis: Acute sinusitis[ICD10: J01.90] Sylvie Singh [employer] CPT-4: 95919 05/17/2019 ([id number]) OFFICE/OUTPATIENT VISIT EST Diagnosis: Acute gastritis without bleeding[ICD10: K29.00] Diagnosis: Essential (primary) hypertension[ICD10: I10] Diagnosis: Hyperlipidemia, unspecified[ICD10: E78.5] Azra BYRNE [employer] CPT-4: 60735 10/31/2018 ([id number]) OFFICE/OUTPATIENT VISIT EST Diagnosis: Acute gastritis without bleeding[ICD10: K29.00] Azra Phillips [employer] CPT-4: 15182 01/18/2018 ([id number]) OFFICE/OUTPATIENT VISIT EST Diagnosis: Hyperlipidemia, unspecified[ICD10: E78.5] Diagnosis: Essential (primary) hypertension[ICD10: I10] Diagnosis: Weakness[ICD10: R53.1] Diagnosis: Sebaceous cyst[ICD10: L72.3] Diagnosis: Idiopathic gout, unspecified site[ICD10: M10.00] Sylvie BYRNE Anago [facility] CPT-4: 29727 03/29/2017 OFFICE/OUTPATIENT VISIT EST Diagnosis: Pain in right knee[ICD10: M25.561] Azra BYRNE Anago [facility] CPT-4: 48957 03/13/2017 OFFICE/OUTPATIENT VISIT EST Diagnosis: Pain in right leg[ICD10: M79.604] Diagnosis: Sebaceous cyst[ICD10: L72.3] Azra BYRNE Anago [facility] CPT-4: 67712 02/27/2017 OFFICE/OUTPATIENT VISIT EST Diagnosis: Local infection of the skin and subcutaneous tissue, unspecified[ICD10: L08.9] Diagnosis: Essential (primary) hypertension[ICD10: I10] Diagnosis: Hyperlipidemia, unspecified[ICD10: E78.5] Dagmar BYRNE Anago [facility] CPT-4: 79391 03/31/2015 ([id number]) PREV VISIT EST AGE 40-64 Diagnosis: History of chest pain[ICD9: V13.89] Diagnosis: Right flank pain[ICD9: 789.09] Diagnosis: ROUTINE MEDICAL EXAM[ICD9: V70.0] Diagnosis: HYPERTENSION[ICD9: 401.9] Diagnosis: HYPERLIPIDEMIA NEC/NOS[ICD9: 272.4] Diagnosis: Colon polyps[ICD9: 211.3] Diagnosis: HEMATURIA NOS[ICD9: 599.70] Dagmar BYRNE Anago [facility] CPT-4: 63039 01/07/2015 OFFICE/OUTPATIENT VISIT EST Diagnosis: COUGH[ICD9: 786.2] Diagnosis: Rectal itching[ICD9: 698.0] Dagmar BYRNE Anago [facility] CPT-4: 75034 04/15/2014 ([id number]) OFFICE/OUTPATIENT VISIT EST Diagnosis: ROUTINE MEDICAL EXAM[ICD9: V70.0] Diagnosis: GOUT[ICD9: 274.9] Diagnosis: HYPERLIPIDEMIA NEC/NOS[ICD9: 272.4] Diagnosis: HYPERTENSION[ICD9: 401.9] Sylvie SILVERIO [facility] CPT-4: 80540 12/11/2013 ([id number]) OFFICE/OUTPATIENT VISIT EST Diagnosis: Shingles[ICD9: 053.9] Sylvie BYRNE [facility] CPT-4: 30156 12/10/2013 ([id number]) OFFICE/OUTPATIENT VISIT EST Diagnosis: HYPERTENSION[ICD9: 401.9] Diagnosis: Colon polyps[ICD9: 211.3] Diagnosis: Stress reaction[ICD9: 308.9] Sylvie BYRNE [facility] CPT-4: 40321 05/02/2013 ([id number]) OFFICE/OUTPATIENT VISIT EST Diagnosis: URINARY TRACT INFECTION[ICD9: 599.0] Sylvie ChapaFrancisco AGAPITO [facility] CPT-4: 68250 01/02/2013 OFFICE/OUTPATIENT VISIT EST Diagnosis: CELLULITIS OF TRUNK[ICD9: 682.2] Diagnosis: SPRAIN SHOULDER/ARM[ICD9: 840.9] Liza Ragsdale SYLVIE Alan BYRNE [facility] CPT-4: 29050 10/10/2011 ([id number]) OFFICE/OUTPATIENT VISIT EST Diagnosis: GOUT[ICD9: 274.9] Sylvie WILSONLINE SammiFrancisco AGAPITO [facility] CPT-4: 47289 09/15/2011 OFFICE/OUTPATIENT VISIT EST Diagnosis: DIARRHEA[ICD9: 787.91] Sylvie Yvanashwini SYLVIE SammiFrancisco HUONG Cagle [facility] CPT-4: 91772 08/12/2011 ([id number]) OFFICE/OUTPATIENT VISIT EST Diagnosis: GOUT[ICD9: 274.9] Diagnosis: Positive WENDI (antinuclear antibody)[ICD9: 795.79] Sylvie WILSONLINE SammiFrancisco AGAPITO [facility] CPT-4: 45579 08/04/2011 OFFICE/OUTPATIENT VISIT EST Diagnosis: Rash[ICD9: 782.1] Diagnosis: Joint pain[ICD9: 719.40] Diagnosis: Hyperlipidemia[ICD9: 272.4] Sylvie Kulkarni RENDER [facility] CPT-4: 58326 05/24/2011 OFFICE/OUTPATIENT VISIT EST Diagnosis: PHARYNGITIS, ACUTE[ICD9: 462] Diagnosis: COUGH[ICD9: 786.2] Diagnosis: SINUSITIS, ACUTE[ICD9: 461.9] Sylvie WILSONLINE SammiFrancisco AGAPITO MOLINA [facility] CPT-4: 88658 04/15/2011 OFFICE/OUTPATIENT VISIT EST Diagnosis: Clavicle fracture[ICD9: 810.00] Sylvie WILSONLINE SammiFrancisco AGAPITO MOLINA [facility] CPT-4: 05643 01/13/2011 OFFICE/OUTPATIENT VISIT EST Diagnosis: Clavicle pain[ICD9: 719.41] Sylvie WILSONLINE SammiFrancisco Shad RENDER [facility] CPT-4: 29452 12/23/2010 OFFICE/OUTPATIENT VISIT EST Diagnosis: Arm pain[ICD9: 729.5] Diagnosis: SPASM OF MUSCLE[ICD9: 728.85] Diagnosis: Neck pain[ICD9: 723.1] Sylvie Santorohenrikchris SYLVIE SammiFrancisco HUONG Cagle [facility] CPT-4: 95057 12/15/2010 OFFICE/OUTPATIENT VISIT EST Diagnosis: HYPERTENSION[ICD9: 401.9] Diagnosis: PHARYNGITIS, ACUTE[ICD9: 462] Diagnosis: MALAISE AND FATIGUE[ICD9: 780.79] Diagnosis: GOUT[ICD9: 274.9] Sylvie Yvanashwini JAUREGUISYLVIE SammiFrancisco AGAPITO MOLINA [facility] CPT-4: 49236 12/02/2010 ([id number]) OFFICE/OUTPATIENT VISIT, EST Sylvie Yvanashwini JAUREGUI GUICHIQUITA SammiFrancisco AGAPITO MOLINA [facility] CPT-4: 33434 04/19/2010 ([id number]) OFFICE/OUTPATIENT VISIT, EST Sylvie Yvanashwini BELLAMY SammiFrancisco AGAPITO MOLINA [facility] CPT-4: 78352 04/14/2010 ([id number]) OFFICE/OUTPATIENT VISIT, EST Sylvie BELLAMY SammiFrancisco AGAPITO MOLINA [facility] CPT-4: 14964 09/01/2009 Plan of Care Planned Activity Notes Codes Status Date Visit Diagnosis Plan: Acute contact dermatitis Discuss ion: Kenalog 40mg IM now Cover with [employer] Call in 1week on how doing Medrol Dose Pack ICD-9 : 692.9 ICD-10 : L25.9 05/17/2019 Patient Education: Medrol (Nicholas)- [employer] Coupon [phone] [email or web address] Completed 05/17/2019 Visit Diagnosis Plan: Abscess of chest wall Discussion : patient has large amount of induration still noted despite recent drainage and antibiotics. dr. anjera's office was called and they were able to see patient today. patient was sent over there for possible surgery. ICD-9 : 682.2 ICD-10 : L02.213 01/25/2019 Appointment: Azra Bradley [address] [place] [address] FOLLOW UP 01/25/2019 Visit Diagnosis Plan: Abscess [...] ICD-10 : L02.213 01/23/2019 Appointment: Azra Bradley [address] [place], [place] [phone] Patient called 01/21/19 to confimr 01/23 appt OF FICE SURGERY 01/23/2019 Patient Education: clindamycin HCl- [employer] Coupon [phone] [email or web address]/[email or web address] Completed 01/23/2019 Appointment: Azra Bradley [address] [place], [place] [phone] CANCELED 01/16/2019 Visit Diagnosis Plan: Acute gastritis [...] ICD-10 : E78.5 10/31/2018 Appointment: Azra Bradley [address] [place], [place] [phone] ACUTE ILLNESS 10/31/2018 Patient Education: High Blood [...] ICD-10 : K29.00 01/18/2018 Appointment: Azra Bradley [address] [place], [place] [phone] ACUTE ILLNESS 01/18/2018 Patient Education: Patient Medication Summary Completed 01/18/2018 Appointment: Sylvie Byrne WPtel: [phone] [id number] US LAB 03/29/2017 Patient Education: Patient Medication [...] ICD-10 : L72.3 03/15/2017 Appointment: Azra Bradley [address] [place], [place] [phone] OFFICE SURGERY 03/15/2017 Patient Education: Patient Medication [...] : M25.561 03/13/2017 Appointment: Azra Bradley [address] [place] [address] ACUTE ILLNESS 03/13/2017 Patient Education: Patient Medication Summary Completed 03/13/2017 Care Plan: X-RAY EXAM OF KNEE 1 OR 2 ATUL [place] : 33963-2 Pending 03/13/2017 Visit Diagnosis Plan: Pain in [...] : 706.2 ICD-10 : L72.3 02/27/2017 Appointment: Arza Bradley [address] [place] [address] ACUTE ILLNESS 02/27/2017 Patient Education: Patient Medication Summary Completed 02/27/2017 Appointment: Katerina Sousa WPtel: [address] [place], [place] [phone] ACUTE ILLNESS 08/21/2015 Visit Plan: Has been [...] 03/31/2015 Appointment: Dagmar Ahmadi WPtel: [phone] [facility] 03/30 Confirmed ~sl FOLLOW UP 03/31/2015 Patient [...] - Candido 01/07/2015 Appointment: Dagmar Ahmadi WPtel: [address] [place] [address] 01/06 appointment confirmed cn Annual Well Visit 01/07/2015 Patient Education: Patient Medication Summary Completed 01/07/2015 Patient Education: [facility] - [employer] - Lisinopril - 18-64 - Dynamic Portal ID Completed 01/07/2015 Appointment: Sylvie Byrne WPtel: [address] [place] [address] ACUTE ILLNESS 08/26/2014 Appointment: Dagmar Ahmadi WPtel: [address] [place] [address] ACUTE ILLNESS 04/15/2014 Patient Education: Patient Medication Summary Completed 04/15/2014 Appointment: Sylvie Byrne WPtel: [address] [place] [address] LAB 12/11/2013 Patient Education: Patient Medication Summary Completed 12/11/2013 Visit Plan: Check CBC, CMP, TSH, Free T4 , Lipids, uric acid, PSA--pt will return in AM for fasting lab Finish acyclovir Discussed Zostavax down road 12/10/2013 Appointment: Sylvie Byrne WPtel: [address] [place], [place] [phone] 12/06 left message FOLLOW UP 12/10/2013 Patient Education: Patient Medication Summary Completed 12/10/2013 Visit Plan: Lisinopril 20mg daily Stress Reducers and trial of fluoxetine 10mg q am Proceed with colonoscopy Check fasting lab 05/02/2013 Appointment: Sylvie Byrne WPtel: [address] [place] [address] ACUTE ILLNESS 05/02/2013 Patient Education: Patient Medication Summary Completed 05/02/2013 Appointment: Sylvie Byrne WPtel: [address] [place] [address] ACUTE ILLNESS 01/02/2013 Patient Education: Patient Medication Summary Completed 01/02/2013 Appointment: Liza Ragsdale WPtel: [address] [place] [address] ACUTE ILLNESS 10/10/2011 Patient Education: Patient Medication Summary Completed 10/10/2011 Appointment: Sylvie Byrne WPtel: [address] [place] [address] US LAB 09/15/2011 Patient Education: Patient Medication [...] Will seek re-eval if 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 08/12/2011 Appointment: Liza Ragsdale WPtel: [address] [place] [address] ACUTE ILLNESS 08/12/2011 Patient Education: Patient Medication Summary Completed 08/12/2011 Visit Plan: Continue increased dose of a llopurinol and daily colcrys Recheck thyroid lab, uric acid and PSA in 3mos Will hold on NSAID at this time due to history of GERD 08/04/2011 Appointment: Sylvie Byrne WPtel: [address] [place] [address] FOLLOW UP 08/04/2011 Patient Education: Patient Medication Summary Completed 08/04/2011 Appointment: Sylvie Byrne WPtel: [address] [place], [place] [phone] US LAB 07/28/2011 Patient Education: Patient Medication Summary Completed 07/28/2011 Appointment: Sylvie Byrne WPtel: [address] [place], [place] [phone] US LAB 05/25/2011 Patient Education: Patient Medication [...] at night. 05/24/2011 Appointment: Liza Ragsdale WPtel: [address] [place] [address] ACUTE ILLNESS 05/24/2011 Patient Education: Patient Medication Summary Completed 05/24/2011 Visit Plan: codeine/guif cough syrup and cefdinir are phoned to [facility]. Discussed fluids and rest. Pt. will notify if symptoms persist or worsen. 04/15/2011 Appointment: Liza Ragsdale WPtel: [address] [place] [address] ACUTE ILLNESS 04/15/2011 Patient Education: Patient Medication Summary Completed 04/15/2011 Appointment: Sylvie Byrne WPtel: [address] [place], [place] [phone] US LAB 02/01/2011 Patient Education: Patient Medication Summary Completed 02/01/2011 Visit Plan: Repeat clavicle x-ray in 6wk s Check bone density 01/13/2011 Appointment: Sylvie Byrne WPtel: [address] [place] [phone] FOLLOW UP 01/13/2011 Patient Education: Patient Medication Summary Completed 01/13/2011 Visit Plan: Check right clavicle and alda ulder x-ray Continue Vimovo and flexeril 12/23/2010 Appointment: Sylvie Byrne WPtel: [address] [place], [place] [phone] FOLLOW UP 12/23/2010 Patient Education: Patient Medication Summary Completed 12/23/2010 Appointment: Sylvie Byrne WPtel: [address] [place], [place] [phone] ER Follow UP 12/15/2010 Patient Education: Patient [...] BP check. 12/02/2010 Appointment: Liza Ragsdale WPtel: [address] [place] [address] ACUTE ILLNESS 12/02/2010 Patient Education: Patient Medication Summary Completed 12/02/2010 Care Plan: ASSAY OF BLOOD/URIC ACID Pendi ng 12/02/2010 Care Plan: VCA AB G/M Pending 2010 Care Plan: EB GARY AG Pending 2010 Care Plan: EB NUCL AB Pending 2010 Appointment: Sylvie Byrne WPtel: [address] [place], [place] [phone] FOLLOW UP 11/18/2010 Visit Plan: benadryl 25 mg tab QHS. 12.5 mg tab every 8 hrs during the day. Pt. will notify if symptoms worsen. No facial edema present. 04/19/2010 Appointment: Liza Ragsdale WPtel: [address] [place], [place] [phone] [place] FOLLOW UP 04/19/2010 Patient Education: Patient [...] no improvement. 04/14/2010 Appointment: Liza Ragsdale WPtel: [address] [place], [place] [phone] ACUTE ILLNESS 04/14/2010 Patient Education: Patient Medication Summary Completed 04/14/2010 Appointment: Liza Ragsdale WPtel: [address] [place], [place] [id number] ACUTE ILLNESS 03/12/2010 Appointment: Sylvie Byrne WPtel: [address] [place], [place] [id number] US LAB 09/14/2009 Patient Education: Patient Medication Summary Completed 09/14/2009 Appointment: Sylvie Byrne WPtel: [address] [place], [place] [id number] ACUTE ILLNESS 09/01/2009 Patient Education: Patient [...] 100 mg Ciprofloxacin 500 mg PO bid [facility]up [facility] - [place] . 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 . Continue increased dose of [...] [facility] Discussed fluids and rest. Pt. will [...]
--- OUTSIDE RECORDS SUMMARY | 2019-10-17 10:39 | XMS REPORT | CCD ---
Author Author Renan Byrne D.O. 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 Role Phone Sylvie Byrne D.O., PP Unavailable CCM Unavailable Summary Purpose Interface Exchange Insurance Providers Payer name Policy type / Coverage type Covered constitution party ID Effective Begin Date Effective End Date WPS MEDICARE PART B [place] Medicare Part B [id number] Unknown [facility] Medicare Part B [id number] Unknown Family History Family History data not found Social History Social History Element Codes Description Effective Dates Tobacco history SNOMED CT: 655558675 Nonsmoker 12/02/2010 Allergies, Adverse Reactions, Alerts Substance [...] mg tablets in a dose pack RxNorm: 962719 6 Tablet(s) Oral QD --then as directed 05/17/2019 05/23/2019 Active Elimite 5 % topical cream RxNorm: 046639 Application To pical QPM from head to toe 05/17/2019 07/16/2019 Active Osteo Bi-Flex 250 mg-200 mg tablet RxNorm: 707514 2 Tablet(s) O ral QD 01/23/2019 No Stop Date Active clindamycin HCl 300 mg capsule RxNorm: 709899 2 Capsule (s) Oral three times a day 01/23/2019 01/30/2019 Inactive Flagyl 500 mg tablet RxNorm: 943932 1 Tablet(s) PO BID 10/31/2018 Inactive lisinopril 20 mg tablet RxNorm: 404046 1 Tablet(s) PO QD for bl ood pressure 09/13/2018 12/11/2018 Inactive allopurinol 100 mg tablet RxNorm: 457299 1 Tablet(s) PO QD 09/14/19 19 12/11/2018 Inactive Flagyl 500 mg tablet RxNorm: 030191 1 Tablet(s) PO BID 01/18/2018 Inactive Cipro 250 mg tablet RxNorm: 171949 1 Tablet(s) PO BID 01/18/201801/08 Inactive lisinopril 20 mg tablet RxNorm: 633050 1 Tablet(s) PO QD for bl ood pressure 11/06/2017 02/03/2018 Inactive allopurinol 100 mg tablet RxNorm: 223307 1 Tablet(s) PO QD 11/07/19 18 02/03/2018 Inactive allopurinol 100 mg tablet RxNorm: 319035 1 Tablet(s) PO QD 04/11/19 18 10/07/2017 Inactive lisinopril 20 mg tablet RxNorm: 986395 1 Tablet(s) PO QD for bl ood pressure 04/07/2017 11/05/2017 Inactive prednisone 20 mg tablet RxNorm: 867333 2 Tablet(s) PO QD 03/15/2017 1 05/18/2016 Inactive tramadol 50 mg tablet RxNorm: 640380 1-2 Tablet(s) PO TID as needed 03/13/2017 08/06/2017 Inactive Medrol (Nicholas) 4 mg tablets in a dose pack RxNorm: 403450 Tablet(s) PO As Directed 02/28/2017 08/01/2017 Inactive allopurinol 100 mg tablet RxNorm: 267938 1 Tablet(s) PO QD 04/11/19 17 04/11/2017 Inactive lisinopril 20 mg tablet RxNorm: 720840 1 Tablet(s) PO QD for bl ood pressure 04/11/2016 04/07/2017 Inactive pravastatin 20 mg tablet RxNorm: 274155 1 Tablet(s) PO QD 01/13/2016 02/26/2017 Inactive pravastatin 20 mg tablet RxNorm: 151978 TAKE 1 TABLET DAILY 016 01/13/2016 Inactive pravastatin 40 mg tablet RxNorm: 726033 1 Tablet(s) PO QD 03/31/2015 03/31/2015 Inactive pravastatin 20 mg tablet RxNorm: 980550 1 Tablet(s) PO QD 03/31/2015 06/28/2015 Inactive doxycycline hyclate 100 mg capsule RxNorm: 5369050 1 Capsule(s) PO BID 03/31/2015 04/09/2015 Inactive mupirocin 2 % topical ointment RxNorm: 155593 Apply TOP BID to affected lesions 03/31/2015 08/01/2017 Inactive pravastatin 40 mg tablet RxNorm: 776535 1 Tablet(s) PO QD 01/08/2015 03/30/2015 Inactive lisinopril 20 mg tablet RxNorm: 936523 1 Tablet(s) PO QD for bl ood pressure 01/07/2015 12/31/2015 Inactive allopurinol 100 mg tablet RxNorm: 244521 1 Tablet(s) PO QD 01/08/20 15 04/10/2016 Inactive ciprofloxacin 500 mg tablet RxNorm: 160046 1 Tablet(s) PO BID 01/0701/13/2015 Inactive doxycycline hyclate 100 mg capsule RxNorm: 6937188 1 Capsule(s) PO BID 04/15/2014 04/24/2014 Inactive fluoxetine 10 mg capsule RxNorm: 519062 1 Capsule(s) PO QAM 014 04/14/2014 Inactive lisinopril 20 mg tablet RxNorm: 936516 1 Tablet(s) PO QD for bl ood pressure 05/02/2013 04/26/2014 Inactive Cipro 500 mg tablet RxNorm: 230248 1 Tablet(s) PO BID 01/02/201312/10 Inactive Cipro 500 mg tablet RxNorm: 141879 1 Tablet(s) PO BID 01/02/201304/2012 Inactive doxycycline hyclate 100 mg Cap RxNorm: 593855 1 Capsule(s) PO BID 0 10/10/2011 10/19/2011 Inactive Culturelle 10 billion cell Cap RxNorm: 292619 1 Capsule(s) PO BID 0 08/12/2011 09/10/2011 Inactive Colcrys 0.6 mg Tab RxNorm: 914573 1 Tablet(s) PO BID 08/04/201111/30 Inactive allopurinol 100 mg Tab RxNorm: 834964 1 Tablet(s) PO BID 07/13/2011 0 08/03/2011 Inactive clotrimazole-betamethasone 1 %-0.05 % Topical Cream RxNorm: 061779 1 Application TOP BID 06/10/2011 06/23/2011 Inactive clotrimazole-betamethasone 1 %-0.05 % Topical Cream RxNorm: 396811 1 Application TOP BID 05/24/2011 06/06/2011 Inactive Colcrys 0.6 mg Tab RxNorm: 207903 1 Tablet(s) PO BID 05/24/201108/02 Inactive cefdinir 300 mg Cap RxNorm: 595304 1 Capsule(s) PO BID 04/15/2011 Inactive Daypro 600 mg Tab RxNorm: 859506 1 Tablet(s) PO BID 12/15/20102010 Inactive for pain Medrol (Nicholas) 4 mg Tabs in a Dose Pack RxNorm: 895438 Tablet(s) PO 0 12/09/2010 12/15/2010 Inactive as directed Colcrys 0.6 mg Tab RxNorm: 060063 1 Tablet(s) PO BID 12/06/201001/04 Inactive lisinopril-hydrochlorothiazide 20 mg-12.5 mg Tab RxNorm: 197 886 1 Tablet(s) PO QAM 12/02/2010 01/30/2011 Inactive ranitidine 150 mg tablet RxNorm: 2998094 1 Tablet(s) PO BID Pt will phone before filing this script. 04/14/2010 05/13/2010 Inactive allopurinol 100 mg Tab RxNorm: 789157 1 Tablet(s) PO BID 09/16/2009 0 11/14/2009 Inactive lisinopril-hydrochlorothiazide 20 mg-12.5 mg Tab RxNorm: 197 886 1 Tablet(s) PO QAM 06/23/2009 08/31/2009 Inactive ibuprofen 200 mg tablet RxNorm: 151859 4 Tablet(s) PO QAM No Start Da te Active Zithromax Z-Nicholas 250 mg Tab RxNorm: 290546 Tablet(s) PO as direc tenzin No Start Date 01/12/2011 Inactive Ultram Oral RxNorm: Oral No Start Date 01/01/2013 Inactive allopurinol 100 mg tablet RxNorm: 928151 1 Tablet(s) PO QD No Start Date 01/06/2015 Inactive pravastatin 40 mg tablet RxNorm: 352547 1 Tablet(s) PO QD No Start Date 01/07/2015 Inactive Naprosyn 500 mg tablet RxNorm: 474394 1 Tablet(s) PO BID No Start D ate 05/01/2013 Inactive azithromycin 250 mg tablet RxNorm: 133615 2 Tablet(s) P O QD take 2 tablets (500 mg) by oral route once daily for 1 day then 1 tablet (250 mg) by oral route once daily for 4 days No Start Date 01/12/2011 Inactive allopurinol 300 mg Tab RxNorm: 862788 1 Tablet(s) PO QD No Start Da te 01/01/2013 Inactive Colcrys 0.6 mg tablet RxNorm: 565892 1 Tablet(s) PO BID No Start Da te 05/01/2013 Inactive Medrol (Nicholas) 4 mg tablets in a dose pack RxNorm: 139248 Tablet(s) PO As Directed No Start Date 02/27/2017 Inactive hydrocodone 5 mg-acetaminophen 325 mg tablet RxNorm: 037902 1 Tablet(s) PO Q4H as needed for pain No Start Date 12/09/2013 Inactive ranitidine 150 mg Tab RxNorm: 1972450 1 Tablet(s) PO BID No Start D ate 04/13/2010 Inactive Allopurinol 100 mg Tab RxNorm: 997491 1 Tablet(s) PO BID No Start D ate 09/15/2009 Inactive coenzyme Q10 200 mg capsule RxNorm: 014327 1 Capsule(s) PO QD No St art Date 03/30/2015 Inactive Mobic 7.5 mg tablet RxNorm: 297804 1 Tablet(s) PO QD No Start Date Inactive Osteo Bi-Flex (5-Loxin) 1,500 mg-400 unit-100 mg tablet RxNo rm: 1 Tablet(s) PO BID No Start Date 03/30/2015 Inactive hydrocodone-acetaminophen 7.5 mg-325 mg Tab RxNorm: 333089 1-2 Tablet(s) PO Q4-6H No Start Date 08/03/2011 Inactive as needed for pa in Neurontin 300 mg capsule RxNorm: 080576 1 Capsule(s) PO QD No Start Date 12/09/2013 Inactive Medrol (Nicholas) 4 mg Tabs in a Dose Pack RxNorm: 906224 Tablet(s) PO N o Start Date 12/08/2010 Inactive as directed Vitamin D2 1,000 unit capsule RxNorm: 588500 1 Capsule(s) PO QD No Start Date 03/30/2015 Inactive Flexeril 10 mg Tab RxNorm: 983649 1 Tablet(s) PO TID No Start Date Inactive for spasm Medication Administered No Medication Administered data Immunizations No Immunization data Results Observation Observation Code Item Item Code Result Date S ervice Location C DIFF MOL [id number] C Diff Mol Int Negative 11/02/2018 Unk nown C Diff An [id number] C Diff Analyzer Indeterminate 9 Unknown GFR CALC 8470512 GFR Non Afr Amr >60 mL/min 11/01/2018 Un known GFR CALC 9034268 GFR Afr Amr >60 mL/min 11/01/[address] LDL 2134233 HDL CHOLESTEROL 46 mg/dL 11/01/[address] LDL 3491082 Cholesterol 198 mg/dL 11/01/[address] LDL 5383320 Triglyceride 104 mg/dL 11/01/[address] LDL 7363301 LDL Direct 158 mg/dL 11/01/[address] LDL 9368424 NON-HDL Chol 152 mg/dL 11/01/2018 Unkno wn THYROID STIMULATING HORMONE 57274 TSH 1.276 uIU/mL 11/01/2018 Unknown COMPREHENSIVE METABOLIC 04145 AST 22 U/L 2018 Unknown COMPREHENSIVE METABOLIC 97021 ALT 17 U/L 2018 Unknown COMPREHENSIVE METABOLIC 90169 BUN 16 mg/dL 2018 Unknown COMPREHENSIVE METABOLIC 64808 ALBUMIN 4.3 g/dL 2018 Unknown COMPREHENSIVE METABOLIC 29248 CHLORIDE 103 mmol/L 11/01 Unknown COMPREHENSIVE METABOLIC 06396 Bili Total 0.9 mg/dL 11/01 Unknown COMPREHENSIVE METABOLIC 45609 ALK PHOS 62 U/L 2018 Unknown COMPREHENSIVE METABOLIC 66289 SODIUM 138 mmol/L 11/01 Unknown COMPREHENSIVE METABOLIC 75172 CREATININE 0.87 mg/dL 10/09 Unknown COMPREHENSIVE METABOLIC 09962 CALCIUM 9.2 mg/dL 2018 Unknown COMPREHENSIVE METABOLIC 19412 POTASSIUM 4.1 mmol/L 11/01 Unknown COMPREHENSIVE METABOLIC 51747 Total Protein 7.2 g/dL Unknown COMPREHENSIVE METABOLIC 53278 Glucose 81 mg/dL 2018 Unknown COMPREHENSIVE METABOLIC 33106 Bicarbonate 18 mmol/L 10/09 Unknown COMPREHENSIVE METABOLIC 32384 AGAP 17 mmol/L 2018 Unknown COMPLETE BLOOD COUNT 2587229 WBC 8.8 10e9/L 11/02/19 19 Unknown COMPLETE BLOOD COUNT 9787167 RBC 4.54 10e12/L 2018 Unknown COMPLETE BLOOD COUNT 1964454 HEMOGLOBIN 14.4 g/dL 11/02/19 19 Unknown COMPLETE BLOOD COUNT 1615788 HEMATOCRIT 44.0 % 11/02/19 19 Unknown COMPLETE BLOOD COUNT 0179666 MCV 96.9 fL 9 Unknown COMPLETE BLOOD COUNT 9837904 MCH 31.7 pg 9 Unknown COMPLETE BLOOD COUNT 4871793 MCHC 32.7 g/dL 9 Unknown COMPLETE BLOOD COUNT 0356334 PLATELET COUNT 239 10e9/L Unknown COMPLETE BLOOD COUNT 5466737 Mean Plt Volume 10.5 fL Unknown COMPLETE BLOOD COUNT 1073696 NRBC Absolute 0.00 10e9/L Unknown COMPLETE BLOOD COUNT 3678920 Neut Auto 65.2 % 9 Unknown COMPLETE BLOOD COUNT 6098062 NRBC/100 WBC 0.0 2018 Unknown COMPLETE BLOOD COUNT 4082013 Lymph Auto 23.1 % 11/02/19 19 Unknown COMPLETE BLOOD COUNT 3626977 [place] Auto 9.5 % 9 Unknown COMPLETE BLOOD COUNT 2810245 RDW 12.2 % 9 Unknown COMPLETE BLOOD COUNT 0209046 Eos Auto 1.7 % 9 Unknown COMPLETE BLOOD COUNT 9851817 Baso Auto 0.3 % 9 Unknown COMPLETE BLOOD COUNT 7767921 Neutrophil Abs 5.73 10e9/L Unknown COMPLETE BLOOD COUNT 0658396 Imm Gran Auto 0.2 % 11/01 Unknown COMPLETE BLOOD COUNT 1213781 Lymphocyte Abs 2.03 10e9/L Unknown COMPLETE BLOOD COUNT 4230119 Monocyte Abs 0.84 10e9/L 10/09 Unknown COMPLETE BLOOD COUNT 9227651 Eosinophil Abs 0.15 10e9/L Unknown COMPLETE BLOOD COUNT 9908191 RDW-SD 43.4 fL 9 Unknown COMPLETE BLOOD COUNT [id number] Basophil Abs 0.03 10e9/L 10/09 Unknown COMPLETE BLOOD COUNT [id number] Imm Gran Abs 0.02 10e9/L 10/09 Unknown COMPREHENSIVE METABOLIC 67388 AST 17 U/L 2016 Unknown COMPREHENSIVE METABOLIC 77522 ALT 16 U/L 2016 Unknown COMPREHENSIVE METABOLIC 29768 BUN 15 mg/dL 2016 Unknown COMPREHENSIVE METABOLIC 59240 ALBUMIN 4.4 g/dL 2016 Unknown COMPREHENSIVE METABOLIC 29933 CHLORIDE 104 mmol/L 03/29 Unknown COMPREHENSIVE METABOLIC 32383 Bili Total 0.5 mg/dL 03/29 Unknown COMPREHENSIVE METABOLIC 95527 ALK PHOS 56 U/L 2016 Unknown COMPREHENSIVE METABOLIC 37625 SODIUM 139 mmol/L 03/29 Unknown COMPREHENSIVE METABOLIC 35190 CREATININE 0.88 mg/dL 03/11 Unknown COMPREHENSIVE METABOLIC 65410 CALCIUM 9.8 mg/dL 2016 Unknown COMPREHENSIVE METABOLIC 20842 POTASSIUM 4.2 mmol/L 03/29 Unknown COMPREHENSIVE METABOLIC 50533 Total Protein 6.8 g/dL Unknown COMPREHENSIVE METABOLIC 40077 Glucose 100 mg/dL 2016 Unknown COMPREHENSIVE METABOLIC 78955 Bicarbonate 30 mmol/L 03/11 Unknown COMPREHENSIVE METABOLIC 41076 AGAP 5 mmol/L 2016 Unknown THYROID STIMULATING HORMONE 58741 TSH 1.077 uIU/mL 03/29/2017 Unknown URIC ACID 27154 URIC ACID 5.2 mg/dL 03/29/2017 Unknown FREE T4 10340 T4 Free 1.04 ng/dL 03/29/2017 Unknown ERYTHROCYTE SEDIMENTATION RATE 30884 Sed Rate 21 mm/hr 03/29/2017 Unknown COMPLETE BLOOD COUNT 8452088 WBC 5.9 10e9/L 03/29/20 17 Unknown COMPLETE BLOOD COUNT 3412398 RBC 4.52 10e12/L 2016 Unknown COMPLETE BLOOD COUNT 5303708 HEMOGLOBIN 14.6 g/dL 03/29/20 17 Unknown COMPLETE BLOOD COUNT 5309775 HEMATOCRIT 44.7 % 03/29/20 17 Unknown COMPLETE BLOOD COUNT 6301835 MCV 98.9 fL 7 Unknown COMPLETE BLOOD COUNT 7194440 MCH 32.3 pg 7 Unknown COMPLETE BLOOD COUNT 0414950 MCHC 32.7 g/dL 7 Unknown COMPLETE BLOOD COUNT 3971431 PLATELET COUNT 262 10e9/L Unknown COMPLETE BLOOD COUNT 3589868 Mean Plt Volume 10.1 fL Unknown COMPLETE BLOOD COUNT 7653572 Neut Auto 44.2 % 7 Unknown COMPLETE BLOOD COUNT 9686960 Lymph Auto 41.5 % 03/29/20 17 Unknown COMPLETE BLOOD COUNT 8262969 [place] Auto 11.2 % 7 Unknown COMPLETE BLOOD COUNT 4209493 RDW 12.3 % 7 Unknown COMPLETE BLOOD COUNT 6795068 Eos Auto 2.6 % 7 Unknown COMPLETE BLOOD COUNT 6178586 Baso Auto 0.5 % 7 Unknown COMPLETE BLOOD COUNT 7118126 Neutrophil Abs 2.61 10e9/L Unknown COMPLETE BLOOD COUNT 4114786 Lymphocyte Abs 2.45 10e9/L Unknown COMPLETE BLOOD COUNT 1126973 Monocyte Abs 0.66 10e9/L 03/11 Unknown COMPLETE BLOOD COUNT 0254304 Eosinophil Abs 0.15 10e9/L Unknown COMPLETE BLOOD COUNT 5360004 RDW-SD 43.7 fL 7 Unknown COMPLETE BLOOD COUNT 0264768 Basophil Abs 0.03 10e9/L 03/11 Unknown LIPID GROUP 49441 Cholesterol 248 mg/dL 03/29/2017 Unkno wn LIPID GROUP 46383 Triglyceride 87 mg/dL 03/29/2017 Unkn own LIPID GROUP 21112 HDL CHOLESTEROL 49 mg/dL 03/29/2017 U nknown LIPID GROUP 67688 Chol/HDL Ratio 5.06 ratio 03/29/2017 U nknown LIPID GROUP 27437 NON-HDL Chol 199 mg/dL 03/29/2017 Unkn own LIPID GROUP 63753 LDL Cholesterol 182 mg/dL 03/29/2017 U nknown GFR CALC 2719312 GFR Non Afr Amr >60 mL/min 03/29/2017 Un known GFR CALC 8176600 GFR Afr Amr >60 mL/min 03/29/2017 Unknow n HIV AG/AB 2728941 HIV Ag/Ab Non-Reactive 03/15/2017 Unkno wn VIRAL HEPATITIS PROFILE #2 07475 Hep A IgM Non-Reactive 03/15/2017 Unknown VIRAL HEPATITIS PROFILE #2 80886 Hep B Core IgM Non-Reac tive 03/15/2017 Unknown VIRAL HEPATITIS PROFILE #2 77355 Hepatitis C Ab Non-Reac tive 03/15/2017 Unknown VIRAL HEPATITIS PROFILE #2 52607 Hep Bs Ag Non-Reactive 03/15/2017 Unknown COMPREHENSIVE METABOLIC 01691 AST 23 U/L 2014 Unknown COMPREHENSIVE METABOLIC 60597 ALT 21 IU/L 2014 Unknown COMPREHENSIVE METABOLIC 35072 BUN 13 MG/DL 2014 Unknown COMPREHENSIVE METABOLIC 54281 ALBUMIN 4.3 GM/DL 2014 Unknown COMPREHENSIVE METABOLIC 07412 CHLORIDE 105 MMOL/L 01/07 Unknown COMPREHENSIVE METABOLIC 43245 BILI TOT 0.7 MG/DL 2014 Unknown COMPREHENSIVE METABOLIC 41705 ALK PHOS 51 U/L 2014 Unknown COMPREHENSIVE METABOLIC 91584 SODIUM 139 MMOL/L 01/07 Unknown COMPREHENSIVE METABOLIC 08815 CREATININE 0.85 MG/DL 12/11 Unknown COMPREHENSIVE METABOLIC 98383 CALCIUM 9.5 MG/DL 2014 Unknown COMPREHENSIVE METABOLIC 56420 POTASSIUM 4.4 MMOL/L 01/07 Unknown COMPREHENSIVE METABOLIC 02838 PROT TOT 6.7 GM/DL 2014 Unknown COMPREHENSIVE METABOLIC 02358 Glucose 100 MG/DL 2014 Unknown COMPREHENSIVE METABOLIC 97449 BICARB 27 MMOL/L 2014 Unknown COMPREHENSIVE METABOLIC 96231 ANION GAP 7 MEQ/L 2014 Unknown THYROID STIMULATING HORMONE 95770 TSH 0.900 uIU/ML 01/07/2015 Unknown COMPLETE BLOOD COUNT 1499097 WBC 4.9 10e9/L 01/08/20 15 Unknown COMPLETE BLOOD COUNT 1572342 RBC 4.71 10e12/L 2014 Unknown COMPLETE BLOOD COUNT 9248021 HGB 15.3 g/dL 5 Unknown COMPLETE BLOOD COUNT 9939411 HCT DET 46.1 % 5 Unknown COMPLETE BLOOD COUNT 8379108 MCV 97.9 fL 5 Unknown COMPLETE BLOOD COUNT 2844956 MCH 32.5 pg 5 Unknown COMPLETE BLOOD COUNT 9904830 MCHC 33.2 g/dL 5 Unknown COMPLETE BLOOD COUNT 1569694 PLT 227 10e9/L 01/08/20 15 Unknown COMPLETE BLOOD COUNT 4934809 MPV 10.9 fL 5 Unknown COMPLETE BLOOD COUNT 5146953 VERONIQUE % 53.0 % 5 Unknown COMPLETE BLOOD COUNT 1699726 LY % 35.8 % 5 Unknown COMPLETE BLOOD COUNT 9196357 MON % 8.6 % 5 Unknown COMPLETE BLOOD COUNT 0306150 EOS % 2.2 % 5 Unknown COMPLETE BLOOD COUNT 5095622 BASO % 0.4 % 5 Unknown COMPLETE BLOOD COUNT 8404850 RDW 12.9 % 5 Unknown COMPLETE BLOOD COUNT 6541019 ABS VERONIQUE 2.60 10e9/L 015 Unknown COMPLETE BLOOD COUNT 2590430 ABS LYMPH 1.75 10e9/L 015 Unknown COMPLETE BLOOD COUNT 5010207 ABS MONO 0.42 10e9/L 015 Unknown COMPLETE BLOOD COUNT 0637163 ABS EOS 0.11 10e9/L 015 Unknown COMPLETE BLOOD COUNT 1808895 ABS BASO 0.02 10e9/L 015 Unknown COMPLETE BLOOD COUNT 1899448 RDW-SD 45.7 fL 5 Unknown URIC ACID 31180 URIC ACID 6.7 MG/DL 01/07/2015 Unknown LIPID GROUP 50680 HDL TEST 52 MG/DL 01/07/2015 Unknown LIPID GROUP 02553 TRIG 158 MG/DL 01/07/2015 Unknown LIPID GROUP 76980 TEST LDL 157 MG/DL 01/07/2015 Unknown LIPID GROUP 52788 CHOL 241 MG/DL 01/07/2015 Unknown LIPID GROUP 35249 RCHOL/HDL 4.63 RATIO 01/07/2015 Unknow n LIPID GROUP 51936 NON-HDL CH 189 MG/DL 01/07/2015 Unknow n GFR CALC 2234041 GFR AA >60 ML/MIN 01/07/2015 Unknown GFR CALC 3020448 GFR NON-AA >60 ML/MIN 01/07/2015 Unknown PSA EQUIMOLAR JONATAN 25614 PSA EQ 2.18 NG/ML 5 Unknown FREE T4 09915 FREE T4 1.04 NG/DL 01/07/2015 Unknown GFR CALC 2775925 GFR AA >60 ML/MIN 12/11/2013 Unknown GFR CALC 7889735 GFR NON-AA >60 ML/MIN 12/11/2013 Unknown LIPID GROUP 59133 HDL TEST 54 MG/DL 12/11/2013 Unknown LIPID GROUP 34834 TRIG 81 MG/DL 12/11/2013 Unknown LIPID GROUP 50509 TEST LDL 185 MG/DL 12/11/2013 Unknown LIPID GROUP 66630 CHOL 255 MG/DL 12/11/2013 Unknown LIPID GROUP 07578 RCHOL/HDL 4.72 RATIO 12/11/2013 Unknow n LIPID GROUP 94340 NON-HDL CH 201 MG/DL 12/11/2013 Unknow n URIC ACID 65644 URIC ACID 7.1 MG/DL 12/11/2013 Unknown PSA EQUIMOLAR JONATAN 29551 PSA EQ 3.80 NG/ML 4 Unknown COMPLETE BLOOD COUNT 3850192 WBC 5.9 10e9/L 12/12/19 14 Unknown COMPLETE BLOOD COUNT 3288778 RBC 4.40 10e12/L 2013 Unknown COMPLETE BLOOD COUNT 8108574 HGB 14.5 g/dL 4 Unknown COMPLETE BLOOD COUNT 2376888 HCT DET 43.6 % 4 Unknown COMPLETE BLOOD COUNT 8685760 MCV 99.1 fL 4 Unknown COMPLETE BLOOD COUNT 2714473 MCH 33.0 pg 4 Unknown COMPLETE BLOOD COUNT 3717530 MCHC 33.3 g/dL 4 Unknown COMPLETE BLOOD COUNT 6215924 PLT 289 10e9/L 12/12/19 14 Unknown COMPLETE BLOOD COUNT 4223761 MPV 10.2 fL 4 Unknown COMPLETE BLOOD COUNT 3418476 [place] % 47.9 % 4 Unknown COMPLETE BLOOD COUNT 9100075 LY % 40.6 % 4 Unknown COMPLETE BLOOD COUNT 6034706 MON % 8.8 % 4 Unknown COMPLETE BLOOD COUNT 2488897 EOS % 2.2 % 4 Unknown COMPLETE BLOOD COUNT 1889657 BASO % 0.5 % 4 Unknown COMPLETE BLOOD COUNT 7607840 RDW 12.9 % 4 Unknown COMPLETE BLOOD COUNT 0355772 ABS VERONIQUE 2.83 10e9/L 014 Unknown COMPLETE BLOOD COUNT 3521622 ABS LYMPH 2.40 10e9/L 014 Unknown COMPLETE BLOOD COUNT 0927648 ABS MONO 0.52 10e9/L 014 Unknown COMPLETE BLOOD COUNT 2110599 ABS EOS 0.13 10e9/L 014 Unknown COMPLETE BLOOD COUNT 4906487 ABS BASO 0.03 10e9/L 014 Unknown COMPLETE BLOOD COUNT 6660767 RDW-SD 45.7 fL 4 Unknown THYROID STIMULATING HORMONE 27026 TSH 1.013 uIU/ML 12/11/2013 Unknown COMPREHENSIVE METABOLIC 43167 AST 20 U/L 2013 Unknown COMPREHENSIVE METABOLIC 91955 ALT 16 IU/L 2013 Unknown COMPREHENSIVE METABOLIC 05071 BUN 17 MG/DL 2013 Unknown COMPREHENSIVE METABOLIC 71039 ALBUMIN 4.6 GM/DL 2013 Unknown COMPREHENSIVE METABOLIC 94220 CHLORIDE 107 MMOL/L 12/11 Unknown COMPREHENSIVE METABOLIC 66562 BILI TOT 0.7 MG/DL 2013 Unknown COMPREHENSIVE METABOLIC 42579 ALK PHOS 53 U/L 2013 Unknown COMPREHENSIVE METABOLIC 39199 SODIUM 140 MMOL/L 12/11 Unknown COMPREHENSIVE METABOLIC 07939 CREATININE 0.84 MG/DL 06/2013 Unknown COMPREHENSIVE METABOLIC 47079 CALCIUM 9.7 MG/DL 2013 Unknown COMPREHENSIVE METABOLIC 82887 POTASSIUM 4.6 MMOL/L 12/11 Unknown COMPREHENSIVE METABOLIC 28140 PROT TOT 6.9 GM/DL 2013 Unknown COMPREHENSIVE METABOLIC 10152 Glucose 97 MG/DL 2013 Unknown COMPREHENSIVE METABOLIC 04207 BICARB 25 MMOL/L 2013 Unknown COMPREHENSIVE METABOLIC 20584 ANION GAP 8 MEQ/L 2013 Unknown FREE T4 03691 FREE T4 1.11 NG/DL 12/11/2013 Unknown ASSAY OF CREATININE 26591 CREATININE 0.98 MG/DL 09/15/19 12 Unknown URIC ACID 53353 URIC ACID 4.9 MG/DL 09/15/2011 Unknown GFR CALC 4851836 GFR AA >60 ML/MIN 09/15/2011 Unknown GFR CALC 4583782 GFR NON-AA >60 ML/MIN 09/15/2011 Unknown THYROID STIMULATING HORMONE 41193 TSH 1.687 uIU/ML 08/01/2011 Unknown FREE T4 39613 FREE T4 0.96 NG/DL 08/01/2011 Unknown SJOGRENS 5509175 SJOGRN A <20 EU/ML 08/01/2011 Unknown SJOGRENS 4483052 SJOGRN B <20 EU/ML 08/01/2011 Unknown SJOGRENS 9639310 NONHIS INT SEE BELO 08/01/2011 Unknown THYRO PERX 8664653 THYRO PERX 175.34 UNITS 07/30/2011 Unkn own DNA AB 0908741 DNA AB 32 IU/ML 07/29/2011 Unknown TITER WENDI 5384648 TITR WENDI 1:160 07/29/2011 Unknown TITER WENDI 0386254 PATTERN NUCLEOLR 07/29/2011 Unknown ANTINUCLEAR ANTIBODY SCREEN 22344 WENDI SCR POSITIVE Unknown COMPREHENSIVE METABOLIC 37029 AST 23 U/L 2011 Unknown COMPREHENSIVE METABOLIC 00939 ALT 26 IU/L 2011 Unknown COMPREHENSIVE METABOLIC 67498 BUN 18 MG/DL 2011 Unknown COMPREHENSIVE METABOLIC 44114 ALBUMIN 4.6 GM/DL 2011 Unknown COMPREHENSIVE METABOLIC 21831 CHLORIDE 105 MMOL/L 07/27 Unknown COMPREHENSIVE METABOLIC 29467 BILI TOT 0.5 MG/DL 2011 Unknown COMPREHENSIVE METABOLIC 19838 ALK PHOS 63 U/L 2011 Unknown COMPREHENSIVE METABOLIC 79884 SODIUM 138 MMOL/L 07/27 Unknown COMPREHENSIVE METABOLIC 57151 CREATININE 0.92 MG/DL 07/09 Unknown COMPREHENSIVE METABOLIC 36538 CALCIUM 9.4 MG/DL 2011 Unknown COMPREHENSIVE METABOLIC 07547 POTASSIUM 3.9 MMOL/L 07/27 Unknown COMPREHENSIVE METABOLIC 68465 PROT TOT 6.7 GM/DL 2011 Unknown COMPREHENSIVE METABOLIC 05936 Glucose 101 MG/DL 2011 Unknown COMPREHENSIVE METABOLIC 92057 BICARB 24 MMOL/L 2011 Unknown COMPREHENSIVE METABOLIC 43084 ANION GAP 9 MEQ/L 2011 Unknown GFR CALC 9109841 GFR AA >60 ML/MIN 07/28/2011 Unknown GFR CALC 2847711 GFR NON-AA >60 ML/MIN 07/28/2011 Unknown ERYTHROCYTE SEDIMENTATION RATE 44568 ESR 2 MM/HR 07/28/2011 Unknown URIC ACID 44205 URIC ACID 5.8 MG/DL 07/28/2011 Unknown C-REACTIVE PROTEIN (CRP) QUANT 39954 CRP 0.2 MG/DL 07/28/2011 Unknown TITER WENDI 0541808 TITR WENDI 1:160 05/26/2011 Unknown TITER WENDI 6117536 PATTERN NUCLEOLR 05/26/2011 Unknown RA FACTOR 49645 RA FACTOR <20.0 IU/ML 05/26/2011 Unknown ANTINUCLEAR ANTIBODY SCREEN 86827 WENDI SCR POSITIVE Unknown URIC ACID 30663 URIC ACID 8.7 MG/DL 05/25/2011 Unknown PSA EQUIMOLAR JONATAN 32331 PSA EQ 2.79 NG/ML 2 Unknown LIPID GROUP 03966 HDL TEST 47 MG/DL 05/25/2011 Unknown LIPID GROUP 56842 TRIG 198 MG/DL 05/25/2011 Unknown LIPID GROUP 29213 TEST LDL 180 MG/DL 05/25/2011 Unknown LIPID GROUP 18474 CHOL 267 MG/DL 05/25/2011 Unknown LIPID GROUP 44627 RCHOL/HDL 5.68 RATIO 05/25/2011 Unknow n COMPREHENSIVE METABOLIC 19328 AST 21 U/L 2011 Unknown COMPREHENSIVE METABOLIC 57553 ALT 21 IU/L 2011 Unknown COMPREHENSIVE METABOLIC 08388 BUN 16 MG/DL 2011 Unknown COMPREHENSIVE METABOLIC 08637 ALBUMIN 4.4 GM/DL 2011 Unknown COMPREHENSIVE METABOLIC 46173 CHLORIDE 105 MMOL/L 05/25 Unknown COMPREHENSIVE METABOLIC 40355 BILI TOT 0.7 MG/DL 2011 Unknown COMPREHENSIVE METABOLIC 01289 ALK PHOS 60 U/L 2011 Unknown COMPREHENSIVE METABOLIC 36750 SODIUM 139 MMOL/L 05/25 Unknown COMPREHENSIVE METABOLIC 07607 CREATININE 0.92 MG/DL 05/11 Unknown COMPREHENSIVE METABOLIC 62103 CALCIUM 9.4 MG/DL 2011 Unknown COMPREHENSIVE METABOLIC 30430 POTASSIUM 4.1 MMOL/L 05/25 Unknown COMPREHENSIVE METABOLIC 57396 PROT TOT 7.0 GM/DL 2011 Unknown COMPREHENSIVE METABOLIC 35570 Glucose 108 MG/DL 2011 Unknown COMPREHENSIVE METABOLIC 25052 BICARB 25 MMOL/L 2011 Unknown COMPREHENSIVE METABOLIC 00252 ANION GAP 9 MEQ/L 2011 Unknown GFR CALC [id number] GFR AA >60 ML/MIN 05/25/2011 Unknown GFR CALC [id number] GFR NON-AA >60 ML/MIN 05/25/2011 Unknown COMPLETE BLOOD COUNT 63230 WBC 5.6 10e9/L 05/25/19 12 Unknown COMPLETE BLOOD COUNT 10973 RBC 5.01 10e12/L 2011 Unknown COMPLETE BLOOD COUNT 92385 HGB 15.8 g/dL 2 Unknown COMPLETE BLOOD COUNT 77861 HCT DET 46.1 % 2 Unknown COMPLETE BLOOD COUNT 22374 MCV 92.0 fL 2 Unknown COMPLETE BLOOD COUNT 22744 MCH 31.5 pg 2 Unknown COMPLETE BLOOD COUNT 74897 MCHC 34.3 g/dL 2 Unknown COMPLETE BLOOD COUNT 73564 PLT 246 10e9/L 05/25/19 12 Unknown COMPLETE BLOOD COUNT 20276 MPV 10.3 fL 2 Unknown COMPLETE BLOOD COUNT 47316 VERONIQUE % 47.1 % 2 Unknown COMPLETE BLOOD COUNT 82806 LY % 41.0 % 2 Unknown COMPLETE BLOOD COUNT 40114 MON % 8.9 % 2 Unknown COMPLETE BLOOD COUNT 80814 EOS % 2.5 % 2 Unknown COMPLETE BLOOD COUNT 98509 BASO % 0.5 % 2 Unknown COMPLETE BLOOD COUNT 41374 RDW 12.7 % 2 Unknown COMPLETE BLOOD COUNT 77391 ABS VERONIQUE 2.64 10e9/L 012 Unknown COMPLETE BLOOD COUNT 74157 ABS LYMPH 2.30 10e9/L 012 Unknown COMPLETE BLOOD COUNT 36996 ABS MONO 0.50 10e9/L 012 Unknown COMPLETE BLOOD COUNT 37853 ABS EOS 0.14 10e9/L 012 Unknown COMPLETE BLOOD COUNT 70609 ABS BASO 0.03 10e9/L 012 Unknown COMPLETE BLOOD COUNT 55236 RDW-SD 41.3 fL 2 Unknown COMPREHENSIVE METABOLIC 99860 AST 18 U/L 2010 Unknown COMPREHENSIVE METABOLIC 01258 ALT 14 IU/L 2010 Unknown COMPREHENSIVE METABOLIC 01473 BUN 12 MG/DL 2010 Unknown COMPREHENSIVE METABOLIC 99987 ALBUMIN 4.6 GM/DL 2010 Unknown COMPREHENSIVE METABOLIC 71305 CHLORIDE 102 MMOL/L 02/01 Unknown COMPREHENSIVE METABOLIC 98483 BILI TOT 0.6 MG/DL 2010 Unknown COMPREHENSIVE METABOLIC 16525 ALK PHOS 66 U/L 2010 Unknown COMPREHENSIVE METABOLIC 63620 SODIUM 139 MMOL/L 02/01 Unknown COMPREHENSIVE METABOLIC 15344 CREATININE 0.92 MG/DL 01/09 Unknown COMPREHENSIVE METABOLIC 81839 CALCIUM 9.8 MG/DL 2010 Unknown COMPREHENSIVE METABOLIC 37703 POTASSIUM 4.1 MMOL/L 02/01 Unknown COMPREHENSIVE METABOLIC 76343 PROT TOT 7.0 GM/DL 2010 Unknown COMPREHENSIVE METABOLIC 65562 Glucose 101 MG/DL 2010 Unknown COMPREHENSIVE METABOLIC 30181 BICARB 25 MMOL/L 2010 Unknown COMPREHENSIVE METABOLIC 48189 ANION GAP 12 MEQ/L 2010 Unknown GFR CALC [id number] GFR AA >60 ML/MIN 02/01/2011 Unknown GFR CALC [id number] GFR NON-AA >60 ML/MIN 02/01/2011 Unknown LIPID GROUP 29939 HDL TEST 44 MG/DL 02/01/2011 Unknown LIPID GROUP 64972 TRIG 157 MG/DL 02/01/2011 Unknown LIPID GROUP 90681 TEST LDL 193 MG/DL 02/01/2011 Unknown LIPID GROUP 72857 CHOL 268 MG/DL 02/01/2011 Unknown LIPID GROUP 19630 RCHOL/HDL 6.09 RATIO 02/01/2011 Unknow n FREE T4 72747 FREE T4 1.04 NG/DL 02/01/2011 Unknown COMPLETE BLOOD COUNT 84715 WBC 6.4 10e9/L 02/02/20 11 Unknown COMPLETE BLOOD COUNT 74476 RBC 4.56 10e12/L 2010 Unknown COMPLETE BLOOD COUNT 06978 HGB 14.4 g/dL 1 Unknown COMPLETE BLOOD COUNT 96495 HCT DET 43.0 % 1 Unknown COMPLETE BLOOD COUNT 03279 MCV 94.3 fL 1 Unknown COMPLETE BLOOD COUNT 29254 MCH 31.6 pg 1 Unknown COMPLETE BLOOD COUNT 73953 MCHC 33.5 g/dL 1 Unknown COMPLETE BLOOD COUNT 08526 PLT 300 10e9/L 02/02/20 11 Unknown COMPLETE BLOOD COUNT 46913 MPV 9.9 fL 1 Unknown COMPLETE BLOOD COUNT 78313 VERONIQUE % 38.5 % 1 Unknown COMPLETE BLOOD COUNT 91689 LY % 49.1 % 1 Unknown COMPLETE BLOOD COUNT 74916 MON % 10.1 % 1 Unknown COMPLETE BLOOD COUNT 62788 EOS % 1.7 % 1 Unknown COMPLETE BLOOD COUNT 33254 BASO % 0.6 % 1 Unknown COMPLETE BLOOD COUNT 27617 RDW 15.1 % 1 Unknown COMPLETE BLOOD COUNT 08127 ABS VERONIQUE 2.46 10e9/L 011 Unknown COMPLETE BLOOD COUNT 97183 ABS LYMPH 3.14 10e9/L 011 Unknown COMPLETE BLOOD COUNT 19147 ABS MONO 0.65 10e9/L 011 Unknown COMPLETE BLOOD COUNT 82543 ABS EOS 0.11 10e9/L 011 Unknown COMPLETE BLOOD COUNT 23093 ABS BASO 0.04 10e9/L 011 Unknown COMPLETE BLOOD COUNT 82085 RDW-SD 50.6 fL 1 Unknown THYROID STIMULATING HORMONE 28342 TSH 1.128 uIU/ML 02/01/2011 Unknown PSA EQUIMOLAR JONATAN 45345 PSA EQ 3.83 NG/ML 1 Unknown VCA AB G/M [id number] EBV G VCA 3.34 12/03/2010 Unknown VCA AB G/M 1465163 EBV M VCA 0.12 12/03/2010 Unknown EB GARY AG [id number] EB GARY AG 0.47 12/03/2010 Unknown EB NUCL AB [id number] EB NUCL AB 3.72 12/03/2010 Unknown COMPLETE BLOOD COUNT 53123 WBC 8.0 10e9/L 12/03/19 11 Unknown COMPLETE BLOOD COUNT 87297 RBC 4.93 10e12/L 2010 Unknown COMPLETE BLOOD COUNT 28986 HGB 15.7 g/dL 1 Unknown COMPLETE BLOOD COUNT 91278 HCT DET 45.4 % 1 Unknown COMPLETE BLOOD COUNT 65557 MCV 92.1 fL 1 Unknown COMPLETE BLOOD COUNT 41612 MCH 31.8 pg 1 Unknown COMPLETE BLOOD COUNT 28551 MCHC 34.6 g/dL 1 Unknown COMPLETE BLOOD COUNT 40804 PLT 248 10e9/L 12/03/19 11 Unknown COMPLETE BLOOD COUNT 36104 MPV 10.4 fL 1 Unknown COMPLETE BLOOD COUNT 82108 VERONIQUE % 74.0 % 1 Unknown COMPLETE BLOOD COUNT 87929 LY % 19.6 % 1 Unknown COMPLETE BLOOD COUNT 08798 MON % 5.2 % 1 Unknown COMPLETE BLOOD COUNT 29461 EOS % 1.1 % 1 Unknown COMPLETE BLOOD COUNT 74356 BASO % 0.1 % 1 Unknown COMPLETE BLOOD COUNT 00253 RDW 12.5 % 1 Unknown COMPLETE BLOOD COUNT 48909 ABS VERONIQUE 5.92 10e9/L 011 Unknown COMPLETE BLOOD COUNT 92458 ABS LYMPH 1.57 10e9/L 011 Unknown COMPLETE BLOOD COUNT 93604 ABS MONO 0.42 10e9/L 011 Unknown COMPLETE BLOOD COUNT 64030 ABS EOS 0.09 10e9/L 011 Unknown COMPLETE BLOOD COUNT 15201 ABS BASO 0.01 10e9/L 011 Unknown COMPLETE BLOOD COUNT 38104 RDW-SD 41.1 fL 1 Unknown URIC ACID 28772 URIC ACID 9.3 MG/DL 12/02/2010 Unknown Procedures Procedure Codes Date THER/PROPH/DIAG INJ SC/IM CPT-4: 26215 05/17/2019 TRIAMCINOLONE ACET INJ NOS CPT-4: J3301 05/17/2019 DRAINAGE OF SKIN ABSCESS CPT-4: 03738 01/23/2019 AEROBIC WOUND CULTURE & STN CPT-4: 59253 01/23/2019 ROUTINE VENIPUNCTURE CPT-4: 93875 03/29/2017 ASSAY THYROID STIM HORMONE CPT-4: 90605 03/29/2017 ASSAY OF FREE THYROXINE CPT-4: 36792 03/29/2017 COMPREHEN METABOLIC PANEL CPT-4: 75989 03/29/2017 COMPLETE CBC W/AUTO DIFF WBC CPT-4: 11507 03/29/2017 LIPID PANEL CPT-4: 54469 03/29/2017 ASSAY OF BLOOD/URIC ACID CPT-4: 48456 03/29/2017 RBC SED RATE AUTOMATED CPT-4: 25392 03/29/2017 ROUTINE VENIPUNCTURE CPT-4: 84057 03/15/2017 ACUTE HEPATITIS PANEL CPT-4: 84733 03/15/2017 HIV-1/HIV-2 1 RESULT ANTBDY CPT-4: 64715 03/15/2017 EXC TR-EXT B9+SHASHA 0.5 CM< CPT-4: 92348 03/15/2017 EXC TR-EXT B9+SHASHA 1.1-2 CM CPT-4: 20025 03/15/2017 URINALYSIS NONAUTO W/O SCOPE CPT-4: 86827 01/07/2015 URINE CULTURE/ COLONY COUNT CPT-4: 70187 01/07/2015 ROUTINE VENIPUNCTURE CPT-4: 66657 01/07/2015 ASSAY OF FREE THYROXINE CPT-4: 50735 01/07/2015 ASSAY THYROID STIM HORMONE CPT-4: 97993 01/07/2015 COMPREHEN METABOLIC PANEL CPT-4: 53556 01/07/2015 COMPLETE CBC W/AUTO DIFF WBC CPT-4: 42722 01/07/2015 LIPID PANEL CPT-4: 67568 01/07/2015 ASSAY OF PSA TOTAL CPT-4: 14943 01/07/2015 ASSAY OF BLOOD/URIC ACID CPT-4: 69838 01/07/2015 ROUTINE VENIPUNCTURE CPT-4: 38708 12/11/2013 ASSAY OF FREE THYROXINE CPT-4: 35054 12/11/2013 ASSAY THYROID STIM HORMONE CPT-4: 01749 12/11/2013 COMPREHEN METABOLIC PANEL CPT-4: 75230 12/11/2013 COMPLETE CBC W/AUTO DIFF WBC CPT-4: 46215 12/11/2013 LIPID PANEL CPT-4: 59349 12/11/2013 ASSAY OF BLOOD/URIC ACID CPT-4: 08986 12/11/2013 ASSAY OF PSA TOTAL CPT-4: 35357 12/11/2013 URINE CULTURE/ COLONY COUNT CPT-4: 11925 01/02/2013 AEROBIC WOUND CULTURE & STN CPT-4: 31586 10/10/2011 DRAINAGE OF SKIN ABSCESS CPT-4: 28463 10/10/2011 ASSAY OF CREATININE CPT-4: 79890 09/15/2011 ASSAY OF BLOOD/URIC ACID CPT-4: 44449 09/15/2011 ROUTINE VENIPUNCTURE CPT-4: 50269 07/28/2011 ANTINUCLEAR ANTIBODIES CPT-4: 08358 07/28/2011 RBC SED RATE AUTOMATED CPT-4: 87089 07/28/2011 ASSAY OF BLOOD/URIC ACID CPT-4: 43992 07/28/2011 COMPREHEN METABOLIC PANEL CPT-4: 23584 07/28/2011 C-REACTIVE PROTEIN CPT-4: 02748 07/28/2011 THYRO PERX CPT-4: 2369014 07/28/2011 DNA AB CPT-4: 6027487 07/28/2011 SJOGRENS CPT-4: 1927442 07/28/2011 ASSAY OF FREE THYROXINE CPT-4: 13102 07/28/2011 ASSAY THYROID STIM HORMONE CPT-4: 12392 07/28/2011 ROUTINE VENIPUNCTURE CPT-4: 42933 05/25/2011 COMPREHEN METABOLIC PANEL CPT-4: 78818 05/25/2011 COMPLETE CBC W/AUTO DIFF WBC CPT-4: 07723 05/25/2011 ANTINUCLEAR ANTIBODIES CPT-4: 38491 05/25/2011 RHEUMATOID FACTOR QUANT CPT-4: 78303 05/25/2011 ASSAY OF PSA TOTAL CPT-4: 36586 05/25/2011 ASSAY OF BLOOD/URIC ACID CPT-4: 52148 05/25/2011 LIPID PANEL CPT-4: 44629 05/25/2011 ROUTINE VENIPUNCTURE CPT-4: 73608 02/01/2011 ASSAY OF FREE THYROXINE CPT-4: 24506 02/01/2011 ASSAY THYROID STIM HORMONE CPT-4: 74498 02/01/2011 COMPREHEN METABOLIC PANEL CPT-4: 52086 02/01/2011 COMPLETE CBC W/AUTO DIFF WBC CPT-4: 80706 02/01/2011 LIPID PANEL CPT-4: 03198 02/01/2011 ASSAY OF PSA TOTAL CPT-4: 50067 02/01/2011 ROUTINE VENIPUNCTURE CPT-4: 58770 12/02/2010 ASSAY OF BLOOD/URIC ACID CPT-4: 26410 12/02/2010 EB VIRUS VCA G/M + EBNA + EA CPT-4: 57437|94350 x 2|76936 COMPLETE CBC W/AUTO DIFF WBC CPT-4: 03277 12/02/2010 COMPREHEN METABOLIC PANEL CPT-4: 63267 09/14/2009 ASSAY OF BLOOD/URIC ACID CPT-4: 62185 09/14/2009 ROUTINE VENIPUNCTURE CPT-4: 04546 09/14/2009 URINALYSIS NONAUTO W/O SCOPE CPT-4: 37254 09/01/2009 Vital Signs Date Vital 05/17/2019 Blood [...] 1: 118/64 Code: 8480-6 BMI: 29.7 Code: 19316-2 Heart Rate 1: 100 bpm Height: 5'6" Respiratory Rate: 22 bpm SpO2: 95% Tempera ture: 36.7 (C) / 98.0 (F) Weight: 187 lbs 02/27/2017 Blood Pressure 1: 132/76 Code: 8480-6 BMI: 30.8 Code: 09346-7 Heart Rate 1: 96 bpm Height: 5'6" Respiratory Rate: 22 bpm SpO2: 98% Tempera ture: 36.6 (C) / 97.8 (F) Weight: 194 lbs 03/31/2015 Blood Pressure 1: 128/90 Code: 8480-6 Heart Rate 1: 88 bpm Respiratory Rate: 20 bpm Temperature: 36.9 (C) / 98.4 (F) Weight: 192 lbs 01/07/2015 Blood Pressure 1: 132/80 Code: 8480-6 BMI: 30.2 Code: 71433-5 Heart Rate 1: 78 bpm Height: 5'6" Respiratory Rate: 22 bpm Temperature: 36 .7 (C) / 98.1 (F) Weight: 190 lbs 04/15/2014 Blood Pressure 1: 136/88 Code: 8480-6 BMI: 31.0 Code: 32639-0 Heart Rate 1: 84 bpm Height: 5'6" Respiratory Rate: 20 bpm Temperature: 36 .1 (C) / 97.0 (F) Weight: 192 lbs 12/10/2013 Blood Pressure 1: 142/90 Code: 8480-6 BMI: 29.1 Code: 25834-1 Heart Rate 1: 72 bpm Height: 5'7" Respiratory Rate: 20 bpm Temperature: 36 .6 (C) / 97.8 (F) Weight: 186 lbs 05/02/2013 Blood Pressure 1: 146/96 Code: 8480-6 BMI: 30.5 Code: 63063-2 Heart Rate 1: 88 bpm Height: 5'7" Respiratory Rate: 20 bpm Temperature: 37 .0 (C) / 98.6 (F) Weight: 195 lbs 01/02/2013 Blood Pressure 1: 132/84 Code: 8480-6 BMI: 30.2 Code: 25053-7 Heart Rate 1: 80 bpm Height: 5'7" Respiratory Rate: 20 bpm Temperature: 36 .9 (C) / 98.4 (F) Weight: 193 lbs 10/10/2011 Blood Pressure 1: 122/68 Code: 8480-6 BMI: 35.7 Code: 02581-6 Heart Rate 1: 84 bpm Height: 5'2" Temperature: 36.9 (C) / 98.5 (F) Weight: 195 lbs 08/12/2011 Blood Pressure 1: 110/80 Code: 8480-6 BMI: 36.9 Code: 82536-1 Heart Rate 1: 80 bpm Height: 5'2" Temperature: 36.4 (C) / 97.6 (F) Weight: 202 lbs 08/04/2011 Blood Pressure 1: 126/80 Code: 8480-6 BMI: 37.9 Code: 65526-7 Heart Rate 1: 76 bpm Height: 5'2" Respiratory Rate: 20 bpm Temperature: 37 .0 (C) / 98.6 (F) Weight: 207 lbs 05/24/2011 Blood Pressure 1: 122/82 Code: 8480-6 BMI: 37.7 Code: 65422-1 Heart Rate 1: 68 bpm Height: 5'2" Temperature: 36.7 (C) / 98.1 (F) Weight: 206 lbs 04/15/2011 Blood Pressure 1: 128/82 Code: 8480-6 BMI: 37.1 Code: 06712-4 Heart Rate 1: 68 bpm Height: 5'2" [...] 1: 106/62 Code: 8480-6 BMI: 36.8 Code: 24810-1 Heart Rate 1: 90 bpm Height: 5'2" SpO2: 94% Temperature: 36.4 (C) / 97.6 (F) Weight: 201 lbs 12/02/2010 Blood Pressure 1: 142/90 Code: 8480-6 BMI: 36.8 Code: 62118-9 Heart Rate 1: 96 bpm Height: 5'2" [...] success Encounters Encounter Performer Location Codes Date ([id number]) OFFICE/OUTPATIENT VISIT EST Diagnosis: Acute contact dermatitis[ICD10: L25.9] Diagnosis: Acute sinusitis[ICD10: J01.90] Sylvie Singh [employer] CPT-4: 62827 05/17/2019 ([id number]) OFFICE/OUTPATIENT VISIT EST Diagnosis: Acute gastritis without bleeding[ICD10: K29.00] Diagnosis: Essential (primary) hypertension[ICD10: I10] Diagnosis: Hyperlipidemia, unspecified[ICD10: E78.5] Azra BYRNE [employer] CPT-4: 29087 10/31/2018 ([id number]) OFFICE/OUTPATIENT VISIT EST Diagnosis: Acute gastritis without bleeding[ICD10: K29.00] Azra Phillips [employer] CPT-4: 56037 01/18/2018 ([id number]) OFFICE/OUTPATIENT VISIT EST Diagnosis: Hyperlipidemia, unspecified[ICD10: E78.5] Diagnosis: Essential (primary) hypertension[ICD10: I10] Diagnosis: Weakness[ICD10: R53.1] Diagnosis: Sebaceous cyst[ICD10: L72.3] Diagnosis: Idiopathic gout, unspecified site[ICD10: M10.00] Sylvie BYRNE [employer] [facility] CPT-4: 68136 03/29/2017 OFFICE/OUTPATIENT VISIT EST Diagnosis: Pain in right knee[ICD10: M25.561] Azra BYRNE [employer] [facility] CPT-4: 09237 03/13/2017 OFFICE/OUTPATIENT VISIT EST Diagnosis: Pain in right leg[ICD10: M79.604] Diagnosis: Sebaceous cyst[ICD10: L72.3] Azra BYRNE [employer] [facility] CPT-4: 21284 02/27/2017 OFFICE/OUTPATIENT VISIT EST Diagnosis: Local infection of the skin and subcutaneous tissue, unspecified[ICD10: L08.9] Diagnosis: Essential (primary) hypertension[ICD10: I10] Diagnosis: Hyperlipidemia, unspecified[ICD10: E78.5] Dagmar BYRNE [employer] [facility] CPT-4: 34837 03/31/2015 ([id number]) PREV VISIT EST AGE 40-64 Diagnosis: History of chest pain[ICD9: V13.89] Diagnosis: Right flank pain[ICD9: 789.09] Diagnosis: ROUTINE MEDICAL EXAM[ICD9: V70.0] Diagnosis: HYPERTENSION[ICD9: 401.9] Diagnosis: HYPERLIPIDEMIA NEC/NOS[ICD9: 272.4] Diagnosis: Colon polyps[ICD9: 211.3] Diagnosis: HEMATURIA NOS[ICD9: 599.70] Dagmar BYRNE [employer] [facility] CPT-4: 68543 01/07/2015 OFFICE/OUTPATIENT VISIT EST Diagnosis: COUGH[ICD9: 786.2] Diagnosis: Rectal itching[ICD9: 698.0] Dagmar BYRNE [employer] [facility] CPT-4: 62947 04/15/2014 ([id number]) OFFICE/OUTPATIENT VISIT EST Diagnosis: ROUTINE MEDICAL EXAM[ICD9: V70.0] Diagnosis: GOUT[ICD9: 274.9] Diagnosis: HYPERLIPIDEMIA NEC/NOS[ICD9: 272.4] Diagnosis: HYPERTENSION[ICD9: 401.9] Sylvie SILVERIO [facility] CPT-4: 91464 12/11/2013 ([id number]) OFFICE/OUTPATIENT VISIT EST Diagnosis: Shingles[ICD9: 053.9] Sylvie BYRNE [facility] CPT-4: 05374 12/10/2013 ([id number]) OFFICE/OUTPATIENT VISIT EST Diagnosis: HYPERTENSION[ICD9: 401.9] Diagnosis: Colon polyps[ICD9: 211.3] Diagnosis: Stress reaction[ICD9: 308.9] Sylvie BYRNE [facility] CPT-4: 03631 05/02/2013 ([id number]) OFFICE/OUTPATIENT VISIT EST Diagnosis: URINARY TRACT INFECTION[ICD9: 599.0] Sylvie ChapaFrancisco AGAPITO [facility] CPT-4: 60621 01/02/2013 OFFICE/OUTPATIENT VISIT EST Diagnosis: CELLULITIS OF TRUNK[ICD9: 682.2] Diagnosis: SPRAIN SHOULDER/ARM[ICD9: 840.9] Liza Ragsdale SYLVIE Alan BYRNE [facility] CPT-4: 44316 10/10/2011 ([id number]) OFFICE/OUTPATIENT VISIT EST Diagnosis: GOUT[ICD9: 274.9] Sylvie WILSONLINE SammiFrancisco [employer] [facility] CPT-4: 31640 09/15/2011 OFFICE/OUTPATIENT VISIT EST Diagnosis: DIARRHEA[ICD9: 787.91] Sylvie Yvanashwini SYLVIE SammiFrancisco HUONG Cagle [facility] CPT-4: 05153 08/12/2011 ([id number]) OFFICE/OUTPATIENT VISIT EST Diagnosis: GOUT[ICD9: 274.9] Diagnosis: Positive WENDI (antinuclear antibody)[ICD9: 795.79] Sylvie WILSONLINE SammiFrancisco [employer] [facility] CPT-4: 54013 08/04/2011 OFFICE/OUTPATIENT VISIT EST Diagnosis: Rash[ICD9: 782.1] Diagnosis: Joint pain[ICD9: 719.40] Diagnosis: Hyperlipidemia[ICD9: 272.4] Sylvie Kulkarni RENDER [facility] CPT-4: 65356 05/24/2011 OFFICE/OUTPATIENT VISIT EST Diagnosis: PHARYNGITIS, ACUTE[ICD9: 462] Diagnosis: COUGH[ICD9: 786.2] Diagnosis: SINUSITIS, ACUTE[ICD9: 461.9] Sylvie WILSONLINE SammiFrancisco AGAPITO [facility] CPT-4: 60865 04/15/2011 OFFICE/OUTPATIENT VISIT EST Diagnosis: Clavicle fracture[ICD9: 810.00] Sylvie WILSONLINE SammiFrancisco AGAPITO [facility] CPT-4: 36709 01/13/2011 OFFICE/OUTPATIENT VISIT EST Diagnosis: Clavicle pain[ICD9: 719.41] Sylvie WILSONLINE SammiFrancisco Shad RENDER [facility] CPT-4: 15703 12/23/2010 OFFICE/OUTPATIENT VISIT EST Diagnosis: Arm pain[ICD9: 729.5] Diagnosis: SPASM OF MUSCLE[ICD9: 728.85] Diagnosis: Neck pain[ICD9: 723.1] Sylvie Santorohenrikchris SYLVIE SammiFrancisco HUONG Cagle [facility] CPT-4: 31054 12/15/2010 OFFICE/OUTPATIENT VISIT EST Diagnosis: HYPERTENSION[ICD9: 401.9] Diagnosis: PHARYNGITIS, ACUTE[ICD9: 462] Diagnosis: MALAISE AND FATIGUE[ICD9: 780.79] Diagnosis: GOUT[ICD9: 274.9] Sylvie Yvanashwini JAUREGUISYLVIE SammiFrancisco AGAP[facility]O [facility] CPT-4: 41112 12/02/2010 ([id number]) OFFICE/OUTPATIENT VISIT, EST Sylvie Yvanashwini JAUREGUI GUICHIQUITA SammiFrancisco AGAP[facility] CPT-4: 29550 04/19/2010 ([id number]) OFFICE/OUTPATIENT VISIT, EST Sylvie Yvanashwini BELLAMY SammiFrancisco [employer] CPT-4: 68979 04/14/2010 ([id number]) OFFICE/OUTPATIENT VISIT, EST Sylvie BELLAMY SammiFrancisco AGAP[facility] CPT-4: 75819 09/01/2009 Plan of Care Planned Activity Notes Codes Status Date Visit Diagnosis Plan: Acute contact dermatitis Discuss ion: Kenalog 40mg IM now Cover with [employer] Call in 1week on how doing Medrol Dose Pack ICD-9 : 692.9 ICD-10 : L25.9 05/17/2019 Patient Education: Medrol (Nicholas)- [employer] Coupon [phone] [email or web address] Completed 05/17/2019 Visit Diagnosis Plan: Abscess of chest wall Discussion : patient has large amount of induration still noted despite recent drainage and antibiotics. dr. najera's office was called and they were able to see patient today. patient was sent over there for possible surgery. ICD-9 : 682.2 ICD-10 : L02.213 01/25/2019 Appointment: Azra Bradley [address] [place] [address] FOLLOW UP 01/25/2019 Visit Diagnosis Plan: Abscess [...] : L02.213 01/23/2019 Appointment: Azra Bradley [address] [place], [place] [phone] Patient called 01/21/19 to confimr 01/23 appt OF FICE SURGERY 01/23/2019 Patient Education: clindamycin HCl- [employer] Coupon [phone] [email or web address] Completed 01/23/2019 Appointment: Azra Bradley [address] [place], [place] [phone] CANCELED 01/16/2019 Visit Diagnosis Plan: Acute gastritis [...] ICD-10 : E78.5 10/31/2018 Appointment: Azra Bradley [address] [place], [place] [phone] ACUTE ILLNESS 10/31/2018 Patient Education: High Blood [...] ICD-10 : K29.00 01/18/2018 Appointment: Azra Bradley [address] [place], [place] [phone] ACUTE ILLNESS 01/18/2018 Patient Education: Patient Medication Summary Completed 01/18/2018 Appointment: Sylvie Byrne WPtel: [phone] [facility] US LAB 03/29/2017 Patient Education: Patient [...] ICD-10 : L72.3 03/15/2017 Appointment: Azra Bradley [address] [place], [place] [id number] OFFICE SURGERY 03/15/2017 Patient Education: Patient Medication [...] ICD-10 : M25.561 03/13/2017 Appointment: Azra Bradley [address] [place] [address] ACUTE ILLNESS 03/13/2017 Patient Education: Patient Medication Summary Completed 03/13/2017 Care Plan: X-RAY EXAM OF KNEE 1 OR 2 ATUL NC : 23439-7 Pending 03/13/2017 Visit Diagnosis Plan: Pain in [...] ICD-10 : L72.3 02/27/2017 Appointment: Azra Bradley [address] [place] [address] ACUTE ILLNESS 02/27/2017 Patient Education: Patient Medication Summary Completed 02/27/2017 Appointment: Katerina Sousa WPtel: [address] [place], [place] [phone] ACUTE ILLNESS 08/21/2015 Visit Plan: Has been [...] back. 03/31/2015 Appointment: Dagmar Ahmadi WPtel: [phone] [facility] 03/30 Confirmed ~sl FOLLOW UP 03/31/2015 Patient [...] - Candido 01/07/2015 Appointment: Dagmar Ahmadi WPtel: [address] [place] [address] 01/06 appointment confirmed cn Annual Well Visit 01/07/2015 Patient Education: Patient Medication Summary Completed 01/07/2015 Patient Education: [facility] - [employer]aving [employer] - Lisinopril - 18-64 - Dynamic Portal ID Completed 01/07/2015 Appointment: Sylvie Byrne WPtel: [address] [place] [address] ACUTE ILLNESS 08/26/2014 Appointment: Dagmar Ahmadi WPtel: [address] [place] [address] ACUTE ILLNESS 04/15/2014 Patient Education: Patient Medication Summary Completed 04/15/2014 Appointment: Sylvie Byrne WPtel: [address] [place] [address] LAB 12/11/2013 Patient Education: Patient Medication Summary Completed 12/11/2013 Visit Plan: Check CBC, CMP, TSH, Free T4 , Lipids, uric acid, PSA--pt will return in AM for fasting lab Finish acyclovir Discussed Zostavax down road 12/10/2013 Appointment: Sylvie Byrne WPtel: [address] [place], [place] [phone] 12/06 left message FOLLOW UP 12/10/2013 Patient Education: Patient Medication Summary Completed 12/10/2013 Visit Plan: Lisinopril 20mg daily Stress Reducers and trial of fluoxetine 10mg q am Proceed with colonoscopy Check fasting lab 05/02/2013 Appointment: Sylvie Byrne WPtel: [address] [place] [address] ACUTE ILLNESS 05/02/2013 Patient Education: Patient Medication Summary Completed 05/02/2013 Appointment: Sylvie Byrne WPtel: [address] [place] [address] ACUTE ILLNESS 01/02/2013 Patient Education: Patient Medication Summary Completed 01/02/2013 Appointment: Liaz Ragsdale WPtel: [address] [place] [address] ACUTE ILLNESS 10/10/2011 Patient Education: Patient Medication Summary Completed 10/10/2011 Appointment: Sylvie Byrne WPtel: [address] [place] [address] US LAB 09/15/2011 Patient Education: Patient Medication [...] Will seek re-eval if symptoms worsen or size changer the weekend. 08/12/2011 Appointment: Liza Ragsdale WPtel: [address] [place] [address] ACUTE ILLNESS 08/12/2011 Patient Education: Patient Medication Summary Completed 08/12/2011 Visit Plan: Continue increased dose of a llopurinol and daily colcrys Recheck thyroid lab, uric acid and PSA in 3mos Will hold on NSAID at this time due to history of GERD 08/04/2011 Appointment: Sylvie Byrne WPtel: [address] [place] [address] FOLLOW UP 08/04/2011 Patient Education: Patient Medication Summary Completed 08/04/2011 Appointment: Sylvie Byrne WPtel: [address] [place], [place] [phone] US LAB 07/28/2011 Patient Education: Patient Medication Summary Completed 07/28/2011 Appointment: Sylvie Byrne WPtel: [address] [place], [place] [phone] US LAB 05/25/2011 Patient Education: Patient Medication [...] at night. 05/24/2011 Appointment: Liza Ragsdale WPtel: [address] [place] [address] ACUTE ILLNESS 05/24/2011 Patient Education: Patient Medication Summary Completed 05/24/2011 Visit Plan: codeine/guif cough syrup and cefdinir are phoned to [facility]. Discussed fluids and rest. Pt. will notify if symptoms persist or worsen. 04/15/2011 Appointment: Liza Ragsdale WPtel: [address] [place] [address] ACUTE ILLNESS 04/15/2011 Patient Education: Patient Medication Summary Completed 04/15/2011 Appointment: Sylvie Byrne WPtel: [address] [place], [place] [phone] [place] LAB 02/01/2011 Patient Education: Patient Medication Summary Completed 02/01/2011 Visit Plan: Repeat clavicle x-ray in 6wk s Check bone density 01/13/2011 Appointment: Sylvie Byrne WPtel: [address] [place] [address] FOLLOW UP 01/13/2011 Patient Education: Patient Medication Summary Completed 01/13/2011 Visit Plan: Check right clavicle and alda ulder x-ray Continue Vimovo and flexeril 12/23/2010 Appointment: Sylvie Byrne WPtel: [address] [place], [place] [phone] FOLLOW UP 12/23/2010 Patient Education: Patient Medication Summary Completed 12/23/2010 Appointment: Sylvie Byrne WPtel: [address] [place], [place] [phone] ER Follow UP 12/15/2010 Patient Education: Patient [...] BP check. 12/02/2010 Appointment: Liza Ragsdale WPtel: [address] [place] [address] ACUTE ILLNESS 12/02/2010 Patient Education: Patient Medication Summary Completed 12/02/2010 Care Plan: ASSAY OF BLOOD/URIC ACID Pendi ng 12/02/2010 Care Plan: VCA AB G/M Pending 2010 Care Plan: EB GARY AG Pending 2010 Care Plan: EB NUCL AB Pending 2010 Appointment: Sylvie Byrne WPtel: [address] [place], [place] [phone] FOLLOW UP 11/18/2010 Visit Plan: benadryl 25 mg tab QHS. 12.5 mg tab every 8 hrs during the day. Pt. will notify if symptoms worsen. No facial edema present. 04/19/2010 Appointment: Liza Ragsdale WPtel: [address] [place], [place] [phone] [place] FOLLOW UP 04/19/2010 Patient Education: Patient [...] no improvement. 04/14/2010 Appointment: Liza Ragsdale WPtel: [address] [place], [place] [phone] ACUTE ILLNESS 04/14/2010 Patient Education: Patient Medication Summary Completed 04/14/2010 Appointment: Liza Ragsdale WPtel: [address] [place], [place] [phone] ACUTE ILLNESS 03/12/2010 Appointment: Sylvie Byrne WPtel: [address] [place], [place] [phone] [place] LAB 09/14/2009 Patient Education: Patient Medication Summary Completed 09/14/2009 Appointment: Sylvie Byrne WPtel: [address] [place], [place] [id number] ACUTE [facility] 09/01/2009 Patient Education: Patient Medication [...] 100 mg Ciprofl[facility] 500 [facility]ons[facility] - [place] . Check CBC, CMP, TSH, Free T4, [...] seek re- eval if symptoms worsen or size changer the weekend. . Continue increased dose [...] [facility] D[facility] and rest. Pt. [...]
--- OUTSIDE RECORDS SUMMARY | 2019-10-17 10:39 | XMS REPORT | CCD ---
Author Author Renan Byrne D.O. Organization [facility] Address [address] [place] [address] Phone Care Team Providers Care Oracle Etl Developer Name Role Phone Sylvie Byrne D.O., PP Unavailable CCM Unavailable Summary Purpose Interface Exchange Insurance Providers Payer name Policy type / Coverage type Covered democrat ID Effective Begin Date Effective End Date WPS MEDICARE [place] B [place] Medicare Part B [id number] Unknown [employer] Medicare Part B [id number] Unknown Family History Family History data not found Social History Social History Element Codes Description Effective Dates Tobacco history SNOMED CT: 557704313 Nonsmoker 12/02/2010 Allergies, Adverse Reactions, Alerts Substance [...] mg tablets in a dose pack RxNorm: 662154 6 Tablet(s) Oral QD --then as directed 05/17/2019 05/23/2019 Active Elimite 5 % topical cream RxNorm: 640768 Application To pical QPM from head to toe 05/17/2019 07/16/2019 Active Osteo Bi-Flex 250 mg-200 mg tablet RxNorm: 129666 2 Tablet(s) O ral QD 01/23/2019 No Stop Date Active clindamycin HCl 300 mg capsule RxNorm: 478472 2 Capsule (s) Oral three times a day 01/23/2019 01/30/2019 Inactive Flagyl 500 mg tablet RxNorm: 494943 1 Tablet(s) PO BID 10/31/2018 Inactive lisinopril 20 mg tablet RxNorm: 035065 1 Tablet(s) PO QD for bl ood pressure 09/13/2018 12/11/2018 Inactive allopurinol 100 mg tablet RxNorm: 658072 1 Tablet(s) PO QD 09/14/19 19 12/11/2018 Inactive Flagyl 500 mg tablet RxNorm: 640852 1 Tablet(s) PO BID 01/18/2018 Inactive Cipro 250 mg tablet RxNorm: 757883 1 Tablet(s) PO BID 01/18/201801/08 Inactive lisinopril 20 mg tablet RxNorm: 346377 1 Tablet(s) PO QD for bl ood pressure 11/06/2017 02/03/2018 Inactive allopurinol 100 mg tablet RxNorm: 716596 1 Tablet(s) PO QD 11/07/19 18 02/03/2018 Inactive allopurinol 100 mg tablet RxNorm: 384528 1 Tablet(s) PO QD 04/11/19 18 10/07/2017 Inactive lisinopril 20 mg tablet RxNorm: 592098 1 Tablet(s) PO QD for bl ood pressure 04/07/2017 11/05/2017 Inactive prednisone 20 mg tablet RxNorm: 647043 2 Tablet(s) PO QD 03/15/2017 1 05/18/2016 Inactive tramadol 50 mg tablet RxNorm: 140771 1-2 Tablet(s) PO TID as needed 03/13/2017 08/06/2017 Inactive Medrol (Nicholas) 4 mg tablets in a dose pack RxNorm: 046198 Tablet(s) PO As Directed 02/28/2017 08/01/2017 Inactive allopurinol 100 mg tablet RxNorm: 006525 1 Tablet(s) PO QD 04/11/19 17 04/11/2017 Inactive lisinopril 20 mg tablet RxNorm: 001582 1 Tablet(s) PO QD for bl ood pressure 04/11/2016 04/07/2017 Inactive pravastatin 20 mg tablet RxNorm: 611848 1 Tablet(s) PO QD 01/13/2016 02/26/2017 Inactive pravastatin 20 mg tablet RxNorm: 394359 TAKE 1 TABLET DAILY 016 01/13/2016 Inactive pravastatin 40 mg tablet RxNorm: 389669 1 Tablet(s) PO QD 03/31/2015 03/31/2015 Inactive pravastatin 20 mg tablet RxNorm: 894176 1 Tablet(s) PO QD 03/31/2015 06/28/2015 Inactive doxycycline hyclate 100 mg capsule RxNorm: 6956268 1 Capsule(s) PO BID 03/31/2015 04/09/2015 Inactive mupirocin 2 % topical ointment RxNorm: 490753 Apply TOP BID to affected lesions 03/31/2015 08/01/2017 Inactive pravastatin 40 mg tablet RxNorm: 729855 1 Tablet(s) PO QD 01/08/2015 03/30/2015 Inactive lisinopril 20 mg tablet RxNorm: 872022 1 Tablet(s) PO QD for bl ood pressure 01/07/2015 12/31/2015 Inactive allopurinol 100 mg tablet RxNorm: 714366 1 Tablet(s) PO QD 01/08/20 15 04/10/2016 Inactive ciprofloxacin 500 mg tablet RxNorm: 816140 1 Tablet(s) PO BID 01/0701/13/2015 Inactive doxycycline hyclate 100 mg capsule RxNorm: 2752526 1 Capsule(s) PO BID 04/15/2014 04/24/2014 Inactive fluoxetine 10 mg capsule RxNorm: 239593 1 Capsule(s) PO QAM 014 04/14/2014 Inactive lisinopril 20 mg tablet RxNorm: 973032 1 Tablet(s) PO QD for bl ood pressure 05/02/2013 04/26/2014 Inactive Cipro 500 mg tablet RxNorm: 418424 1 Tablet(s) PO BID 01/02/201312/10 Inactive Cipro 500 mg tablet RxNorm: 278666 1 Tablet(s) PO BID 01/02/201304/2012 Inactive doxycycline hyclate 100 mg Cap RxNorm: 694476 1 Capsule(s) PO BID 0 10/10/2011 10/19/2011 Inactive Culturelle 10 billion cell Cap RxNorm: 992075 1 Capsule(s) PO BID 0 08/12/2011 09/10/2011 Inactive Colcrys 0.6 mg Tab RxNorm: 908186 1 Tablet(s) PO BID 08/04/201111/30 Inactive allopurinol 100 mg Tab RxNorm: 277206 1 Tablet(s) PO BID 07/13/2011 0 08/03/2011 Inactive clotrimazole-betamethasone 1 %-0.05 % Topical Cream RxNorm: 223527 1 Application TOP BID 06/10/2011 06/23/2011 Inactive clotrimazole-betamethasone 1 %-0.05 % Topical Cream RxNorm: 360758 1 Application TOP BID 05/24/2011 06/06/2011 Inactive Colcrys 0.6 mg Tab RxNorm: 706868 1 Tablet(s) PO BID 05/24/201108/02 Inactive cefdinir 300 mg Cap RxNorm: 861415 1 Capsule(s) PO BID 04/15/2011 Inactive Daypro 600 mg Tab RxNorm: 966644 1 Tablet(s) PO BID 12/15/20102010 Inactive for pain Medrol (Nicholas) 4 mg Tabs in a Dose Pack RxNorm: 966530 Tablet(s) PO 0 12/09/2010 12/15/2010 Inactive as directed Colcrys 0.6 mg Tab RxNorm: 261104 1 Tablet(s) PO BID 12/06/201001/04 Inactive lisinopril-hydrochlorothiazide 20 mg-12.5 mg Tab RxNorm: 197 886 1 Tablet(s) PO QAM 12/02/2010 01/30/2011 Inactive ranitidine 150 mg tablet RxNorm: 9913521 1 Tablet(s) PO BID Pt will phone before filing this script. 04/14/2010 05/13/2010 Inactive allopurinol 100 mg Tab RxNorm: 770100 1 Tablet(s) PO BID 09/16/2009 0 11/14/2009 Inactive lisinopril-hydrochlorothiazide 20 mg-12.5 mg Tab RxNorm: 197 886 1 Tablet(s) PO QAM 06/23/2009 08/31/2009 Inactive ibuprofen 200 mg tablet RxNorm: 277875 4 Tablet(s) PO QAM No Start Da te Active Zithromax Z-Nicholas 250 mg Tab RxNorm: 231062 Tablet(s) PO as direc tenzin No Start Date 01/12/2011 Inactive Ultram Oral RxNorm: Oral No Start Date 01/01/2013 Inactive allopurinol 100 mg tablet RxNorm: 953207 1 Tablet(s) PO QD No Start Date 01/06/2015 Inactive pravastatin 40 mg tablet RxNorm: 595884 1 Tablet(s) PO QD No Start Date 01/07/2015 Inactive Naprosyn 500 mg tablet RxNorm: 704402 1 Tablet(s) PO BID No Start D ate 05/01/2013 Inactive azithromycin 250 mg tablet RxNorm: 667295 2 Tablet(s) P O QD take 2 tablets (500 mg) by oral route once daily for 1 day then 1 tablet (250 mg) by oral route once daily for 4 days No Start Date 01/12/2011 Inactive allopurinol 300 mg Tab RxNorm: 306118 1 Tablet(s) PO QD No Start Da te 01/01/2013 Inactive Colcrys 0.6 mg tablet RxNorm: 686409 1 Tablet(s) PO BID No Start Da te 05/01/2013 Inactive Medrol (Nicholas) 4 mg tablets in a dose pack RxNorm: 593606 Tablet(s) PO As Directed No Start Date 02/27/2017 Inactive hydrocodone 5 mg-acetaminophen 325 mg tablet RxNorm: 844893 1 Tablet(s) PO Q4H as needed for pain No Start Date 12/09/2013 Inactive ranitidine 150 mg Tab RxNorm: 6829482 1 Tablet(s) PO BID No Start D ate 04/13/2010 Inactive Allopurinol 100 mg Tab RxNorm: 192815 1 Tablet(s) PO BID No Start D ate 09/15/2009 Inactive coenzyme Q10 200 mg capsule RxNorm: 243455 1 Capsule(s) PO QD No St art Date 03/30/2015 Inactive Mobic 7.5 mg tablet RxNorm: 663543 1 Tablet(s) PO QD No Start Date Inactive Osteo Bi-Flex (5-Loxin) 1,500 mg-400 unit-100 mg tablet RxNo rm: 1 Tablet(s) PO BID No Start Date 03/30/2015 Inactive hydrocodone-acetaminophen 7.5 mg-325 mg Tab RxNorm: 507652 1-2 Tablet(s) PO Q4-6H No Start Date 08/03/2011 Inactive as needed for pa in Neurontin 300 mg capsule RxNorm: 098151 1 Capsule(s) PO QD No Start Date 12/09/2013 Inactive Medrol (Nicholas) 4 mg Tabs in a Dose Pack RxNorm: 468234 Tablet(s) PO N o Start Date 12/08/2010 Inactive as directed Vitamin D2 1,000 unit capsule RxNorm: 155131 1 Capsule(s) PO QD No Start Date 03/30/2015 Inactive Flexeril 10 mg Tab RxNorm: 573688 1 Tablet(s) PO TID No Start Date Inactive for spasm Medication Administered No Medication Administered data Immunizations No Immunization data Results Observation Observation Code Item Item Code Result Date S ervice Location C DIFF MOL [id number] C Diff Mol Int Negative 11/02/2018 Unk nown C Diff An [id number] C Diff Analyzer Indeterminate 9 Unknown GFR CALC 3087021 GFR Non Afr Amr >60 mL/min 11/01/2018 Un known GFR CALC 1343848 GFR Afr Amr >60 mL/min 11/01/[address] LDL 3826464 HDL CHOLESTEROL 46 mg/dL 11/01/[address] LDL 9977894 Cholesterol 198 mg/dL 11/01/[address] LDL 0260815 Triglyceride 104 mg/dL 11/01/[address] LDL 4754893 LDL Direct 158 mg/dL 11/01/[address] LDL 9187109 NON-HDL Chol 152 mg/dL 11/01/2018 Unkno wn THYROID STIMULATING HORMONE 51290 TSH 1.276 uIU/mL 11/01/2018 Unknown COMPREHENSIVE METABOLIC 18528 AST 22 U/L 2018 Unknown COMPREHENSIVE METABOLIC 18631 ALT 17 U/L 2018 Unknown COMPREHENSIVE METABOLIC 36557 BUN 16 mg/dL 2018 Unknown COMPREHENSIVE METABOLIC 89516 ALBUMIN 4.3 g/dL 2018 Unknown COMPREHENSIVE METABOLIC 67717 CHLORIDE 103 mmol/L 11/01 Unknown COMPREHENSIVE METABOLIC 33099 Bili Total 0.9 mg/dL 11/01 Unknown COMPREHENSIVE METABOLIC 41144 ALK PHOS 62 U/L 2018 Unknown COMPREHENSIVE METABOLIC 63418 SODIUM 138 mmol/L 11/01 Unknown COMPREHENSIVE METABOLIC 88107 CREATININE 0.87 mg/dL 10/09 Unknown COMPREHENSIVE METABOLIC 22352 CALCIUM 9.2 mg/dL 2018 Unknown COMPREHENSIVE METABOLIC 60384 POTASSIUM 4.1 mmol/L 11/01 Unknown COMPREHENSIVE METABOLIC 37873 Total Protein 7.2 g/dL Unknown COMPREHENSIVE METABOLIC 03758 Glucose 81 mg/dL 2018 Unknown COMPREHENSIVE METABOLIC 52975 Bicarbonate 18 mmol/L 10/09 Unknown COMPREHENSIVE METABOLIC 30966 AGAP 17 mmol/L 2018 Unknown COMPLETE BLOOD COUNT 8758604 WBC 8.8 10e9/L 11/02/19 19 Unknown COMPLETE BLOOD COUNT 0606452 RBC 4.54 10e12/L 2018 Unknown COMPLETE BLOOD COUNT 3225595 HEMOGLOBIN 14.4 g/dL 11/02/19 19 Unknown COMPLETE BLOOD COUNT 2534626 HEMATOCRIT 44.0 % 11/02/19 19 Unknown COMPLETE BLOOD COUNT 1526185 MCV 96.9 fL 9 Unknown COMPLETE BLOOD COUNT 9945465 MCH 31.7 pg 9 Unknown COMPLETE BLOOD COUNT 1439148 MCHC 32.7 g/dL 9 Unknown COMPLETE BLOOD COUNT 5025268 PLATELET COUNT 239 10e9/L Unknown COMPLETE BLOOD COUNT 0654803 Mean Plt Volume 10.5 fL Unknown COMPLETE BLOOD COUNT 8891874 NRBC Absolute 0.00 10e9/L Unknown COMPLETE BLOOD COUNT 8155497 Neut Auto 65.2 % 9 Unknown COMPLETE BLOOD COUNT 2478505 NRBC/100 WBC 0.0 2018 Unknown COMPLETE BLOOD COUNT 1991942 Lymph Auto 23.1 % 11/02/19 19 Unknown COMPLETE BLOOD COUNT 9694471 [place] Auto 9.5 % 9 Unknown COMPLETE BLOOD COUNT 7885872 RDW 12.2 % 9 Unknown COMPLETE BLOOD COUNT 8213613 Eos Auto 1.7 % 9 Unknown COMPLETE BLOOD COUNT 1812140 Baso Auto 0.3 % 9 Unknown COMPLETE BLOOD COUNT 7612054 Neutrophil Abs 5.73 10e9/L Unknown COMPLETE BLOOD COUNT 1743050 Imm Gran Auto 0.2 % 11/01 Unknown COMPLETE BLOOD COUNT 9789106 Lymphocyte Abs 2.03 10e9/L Unknown COMPLETE BLOOD COUNT 1529382 Monocyte Abs 0.84 10e9/L 10/09 Unknown COMPLETE BLOOD COUNT 6557513 Eosinophil Abs 0.15 10e9/L Unknown COMPLETE BLOOD COUNT 6219441 RDW-SD 43.4 fL 9 Unknown COMPLETE BLOOD COUNT 5399601 Basophil Abs 0.03 10e9/L 10/09 Unknown COMPLETE BLOOD COUNT 8305913 Imm Gran Abs 0.02 10e9/L 10/09 Unknown COMPREHENSIVE METABOLIC 84519 AST 17 U/L 2016 Unknown COMPREHENSIVE METABOLIC 16125 ALT 16 U/L 2016 Unknown COMPREHENSIVE METABOLIC 11001 BUN 15 mg/dL 2016 Unknown COMPREHENSIVE METABOLIC 39176 ALBUMIN 4.4 g/dL 2016 Unknown COMPREHENSIVE METABOLIC 16473 CHLORIDE 104 mmol/L 03/29 Unknown COMPREHENSIVE METABOLIC 44402 Bili Total 0.5 mg/dL 03/29 Unknown COMPREHENSIVE METABOLIC 96121 ALK PHOS 56 U/L 2016 Unknown COMPREHENSIVE METABOLIC 29871 SODIUM 139 mmol/L 03/29 Unknown COMPREHENSIVE METABOLIC 96257 CREATININE 0.88 mg/dL 03/11 Unknown COMPREHENSIVE METABOLIC 68799 CALCIUM 9.8 mg/dL 2016 Unknown COMPREHENSIVE METABOLIC 68334 POTASSIUM 4.2 mmol/L 03/29 Unknown COMPREHENSIVE METABOLIC 06383 Total Protein 6.8 g/dL Unknown COMPREHENSIVE METABOLIC 83443 Glucose 100 mg/dL 2016 Unknown COMPREHENSIVE METABOLIC 04399 Bicarbonate 30 mmol/L 03/11 Unknown COMPREHENSIVE METABOLIC 72188 AGAP 5 mmol/L 2016 Unknown THYROID STIMULATING HORMONE 81486 TSH 1.077 uIU/mL 03/29/2017 Unknown URIC ACID 76135 URIC ACID 5.2 mg/dL 03/29/2017 Unknown FREE T4 23894 T4 Free 1.04 ng/dL 03/29/2017 Unknown ERYTHROCYTE SEDIMENTATION RATE 71290 Sed Rate 21 mm/hr 03/29/2017 Unknown COMPLETE BLOOD COUNT 6719532 WBC 5.9 10e9/L 03/29/20 17 Unknown COMPLETE BLOOD COUNT 4201902 RBC 4.52 10e12/L 2016 Unknown COMPLETE BLOOD COUNT 3365357 HEMOGLOBIN 14.6 g/dL 03/29/20 17 Unknown COMPLETE BLOOD COUNT 2042224 HEMATOCRIT 44.7 % 03/29/20 17 Unknown COMPLETE BLOOD COUNT 6665972 MCV 98.9 fL 7 Unknown COMPLETE BLOOD COUNT 6109214 MCH 32.3 pg 7 Unknown COMPLETE BLOOD COUNT 5006683 MCHC 32.7 g/dL 7 Unknown COMPLETE BLOOD COUNT 9540089 PLATELET COUNT 262 10e9/L Unknown COMPLETE BLOOD COUNT 0915903 Mean Plt Volume 10.1 fL Unknown COMPLETE BLOOD COUNT 0390393 Neut Auto 44.2 % 7 Unknown COMPLETE BLOOD COUNT 2857974 Lymph Auto 41.5 % 03/29/20 17 Unknown COMPLETE BLOOD COUNT 7941739 [place] Auto 11.2 % 7 Unknown COMPLETE BLOOD COUNT 8936080 RDW 12.3 % 7 Unknown COMPLETE BLOOD COUNT 6136297 Eos Auto 2.6 % 7 Unknown COMPLETE BLOOD COUNT 4496489 Baso Auto 0.5 % 7 Unknown COMPLETE BLOOD COUNT 2064768 Neutrophil Abs 2.61 10e9/L Unknown COMPLETE BLOOD COUNT 3400119 Lymphocyte Abs 2.45 10e9/L Unknown COMPLETE BLOOD COUNT 0102905 Monocyte Abs 0.66 10e9/L 03/11 Unknown COMPLETE BLOOD COUNT 9685377 Eosinophil Abs 0.15 10e9/L Unknown COMPLETE BLOOD COUNT 7501300 RDW-SD 43.7 fL 7 Unknown COMPLETE BLOOD COUNT 1572145 Basophil Abs 0.03 10e9/L 03/11 Unknown LIPID GROUP 95591 Cholesterol 248 mg/dL 03/29/2017 Unkno wn LIPID GROUP 80702 Triglyceride 87 mg/dL 03/29/2017 Unkn own LIPID GROUP 70916 HDL CHOLESTEROL 49 mg/dL 03/29/2017 U nknown LIPID GROUP 41010 Chol/HDL Ratio 5.06 ratio 03/29/2017 U nknown LIPID GROUP 08000 NON-HDL Chol 199 mg/dL 03/29/2017 Unkn own LIPID GROUP 15751 LDL Cholesterol 182 mg/dL 03/29/2017 U nknown GFR CALC 4678146 GFR Non Afr Amr >60 mL/min 03/29/2017 Un known GFR CALC 7132058 GFR Afr Amr >60 mL/min 03/29/2017 Unknow n HIV AG/AB 1899596 HIV Ag/Ab Non-Reactive 03/15/2017 Unkno wn VIRAL HEPATITIS PROFILE #2 41381 Hep A IgM Non-Reactive 03/15/2017 Unknown VIRAL HEPATITIS PROFILE #2 80115 Hep B Core IgM Non-Reac tive 03/15/2017 Unknown VIRAL HEPATITIS PROFILE #2 78689 Hepatitis C Ab Non-Reac tive 03/15/2017 Unknown VIRAL HEPATITIS PROFILE #2 23670 Hep Bs Ag Non-Reactive 03/15/2017 Unknown COMPREHENSIVE METABOLIC 22766 AST 23 U/L 2014 Unknown COMPREHENSIVE METABOLIC 16942 ALT 21 IU/L 2014 Unknown COMPREHENSIVE METABOLIC 73886 BUN 13 MG/DL 2014 Unknown COMPREHENSIVE METABOLIC 08074 ALBUMIN 4.3 GM/DL 2014 Unknown COMPREHENSIVE METABOLIC 08053 CHLORIDE 105 MMOL/L 01/07 Unknown COMPREHENSIVE METABOLIC 52069 BILI TOT 0.7 MG/DL 2014 Unknown COMPREHENSIVE METABOLIC 67645 ALK PHOS 51 U/L 2014 Unknown COMPREHENSIVE METABOLIC 52389 SODIUM 139 MMOL/L 01/07 Unknown COMPREHENSIVE METABOLIC 42188 CREATININE 0.85 MG/DL 12/11 Unknown COMPREHENSIVE METABOLIC 27405 CALCIUM 9.5 MG/DL 2014 Unknown COMPREHENSIVE METABOLIC 67956 POTASSIUM 4.4 MMOL/L 01/07 Unknown COMPREHENSIVE METABOLIC 51200 PROT TOT 6.7 GM/DL 2014 Unknown COMPREHENSIVE METABOLIC 92700 Glucose 100 MG/DL 2014 Unknown COMPREHENSIVE METABOLIC 18744 BICARB 27 MMOL/L 2014 Unknown COMPREHENSIVE METABOLIC 48846 ANION GAP 7 MEQ/L 2014 Unknown THYROID STIMULATING HORMONE 80114 TSH 0.900 uIU/ML 01/07/2015 Unknown COMPLETE BLOOD COUNT 7262677 WBC 4.9 10e9/L 01/08/20 15 Unknown COMPLETE BLOOD COUNT 7854419 RBC 4.71 10e12/L 2014 Unknown COMPLETE BLOOD COUNT 0002480 HGB 15.3 g/dL 5 Unknown COMPLETE BLOOD COUNT 6794830 HCT DET 46.1 % 5 Unknown COMPLETE BLOOD COUNT 1427171 MCV 97.9 fL 5 Unknown COMPLETE BLOOD COUNT 0189752 MCH 32.5 pg 5 Unknown COMPLETE BLOOD COUNT 6887314 MCHC 33.2 g/dL 5 Unknown COMPLETE BLOOD COUNT 4402582 PLT 227 10e9/L 01/08/20 15 Unknown COMPLETE BLOOD COUNT 5194973 MPV 10.9 fL 5 Unknown COMPLETE BLOOD COUNT 6982243 VERON[place] % 53.0 % 5 Unknown COMPLETE BLOOD COUNT 8136922 LY % 35.8 % 5 Unknown COMPLETE BLOOD COUNT 9529066 MON % 8.6 % 5 Unknown COMPLETE BLOOD COUNT 0289066 EOS % 2.2 % 5 Unknown COMPLETE BLOOD COUNT 7808396 BASO % 0.4 % 5 Unknown COMPLETE BLOOD COUNT 3583780 RDW 12.9 % 5 Unknown COMPLETE BLOOD COUNT 4546033 ABS VERONIQUE 2.60 10e9/L 015 Unknown COMPLETE BLOOD COUNT 0841725 ABS LYMPH 1.75 10e9/L 015 Unknown COMPLETE BLOOD COUNT 6937601 ABS MONO 0.42 10e9/L 015 Unknown COMPLETE BLOOD COUNT 1098046 ABS EOS 0.11 10e9/L 015 Unknown COMPLETE BLOOD COUNT 3692069 ABS BASO 0.02 10e9/L 015 Unknown COMPLETE BLOOD COUNT 7924764 RDW-SD 45.7 fL 5 Unknown URIC ACID 48905 URIC ACID 6.7 MG/DL 01/07/2015 Unknown LIPID GROUP 28727 HDL TEST 52 MG/DL 01/07/2015 Unknown LIPID GROUP 25479 TRIG 158 MG/DL 01/07/2015 Unknown LIPID GROUP 74814 TEST LDL 157 MG/DL 01/07/2015 Unknown LIPID GROUP 47080 CHOL 241 MG/DL 01/07/2015 Unknown LIPID GROUP 92655 RCHOL/HDL 4.63 RATIO 01/07/2015 Unknow n LIPID GROUP 61809 NON-HDL CH 189 MG/DL 01/07/2015 Unknow n GFR CALC 9078465 GFR AA >60 ML/MIN 01/07/2015 Unknown GFR CALC 8996980 GFR NON-AA >60 ML/MIN 01/07/2015 Unknown PSA EQUIMOLAR JONATAN 97604 PSA EQ 2.18 NG/ML 5 Unknown FREE T4 11110 FREE T4 1.04 NG/DL 01/07/2015 Unknown GFR CALC 3768251 GFR AA >60 ML/MIN 12/11/2013 Unknown GFR CALC 7172105 GFR NON-AA >60 ML/MIN 12/11/2013 Unknown LIPID GROUP 39118 HDL TEST 54 MG/DL 12/11/2013 Unknown LIPID GROUP 95704 TRIG 81 MG/DL 12/11/2013 Unknown LIPID GROUP 74663 TEST LDL 185 MG/DL 12/11/2013 Unknown LIPID GROUP 45175 CHOL 255 MG/DL 12/11/2013 Unknown LIPID GROUP 11333 RCHOL/HDL 4.72 RATIO 12/11/2013 Unknow n LIPID GROUP 39346 NON-HDL CH 201 MG/DL 12/11/2013 Unknow n URIC ACID 17677 URIC ACID 7.1 MG/DL 12/11/2013 Unknown PSA EQUIMOLAR JONATAN 90394 PSA EQ 3.80 NG/ML 4 Unknown COMPLETE BLOOD COUNT 9089194 WBC 5.9 10e9/L 12/12/19 14 Unknown COMPLETE BLOOD COUNT 2766713 RBC 4.40 10e12/L 2013 Unknown COMPLETE BLOOD COUNT 6953756 HGB 14.5 g/dL 4 Unknown COMPLETE BLOOD COUNT 5119325 HCT DET 43.6 % 4 Unknown COMPLETE BLOOD COUNT 3981742 MCV 99.1 fL 4 Unknown COMPLETE BLOOD COUNT 8965771 MCH 33.0 pg 4 Unknown COMPLETE BLOOD COUNT 5929935 MCHC 33.3 g/dL 4 Unknown COMPLETE BLOOD COUNT 0598095 PLT 289 10e9/L 12/12/19 14 Unknown COMPLETE BLOOD COUNT 9184519 MPV 10.2 fL 4 Unknown COMPLETE BLOOD COUNT 5113979 [place] % 47.9 % 4 Unknown COMPLETE BLOOD COUNT 5714275 LY % 40.6 % 4 Unknown COMPLETE BLOOD COUNT 1839424 MON % 8.8 % 4 Unknown COMPLETE BLOOD COUNT 7053220 EOS % 2.2 % 4 Unknown COMPLETE BLOOD COUNT 2567657 BASO % 0.5 % 4 Unknown COMPLETE BLOOD COUNT 3806538 RDW 12.9 % 4 Unknown COMPLETE BLOOD COUNT 5073052 ABS [place] 2.83 10e9/L 014 Unknown COMPLETE BLOOD COUNT 5594818 ABS LYMPH 2.40 10e9/L 014 Unknown COMPLETE BLOOD COUNT 4978804 ABS MONO 0.52 10e9/L 014 Unknown COMPLETE BLOOD COUNT 6140416 ABS EOS 0.13 10e9/L 014 Unknown COMPLETE BLOOD COUNT 9698925 ABS BASO 0.03 10e9/L 014 Unknown COMPLETE BLOOD COUNT 3918173 RDW-SD 45.7 fL 4 Unknown THYROID STIMULATING HORMONE 31752 TSH 1.013 uIU/ML 12/11/2013 Unknown COMPREHENSIVE METABOLIC 57186 AST 20 U/L 2013 Unknown COMPREHENSIVE METABOLIC 65732 ALT 16 IU/L 2013 Unknown COMPREHENSIVE METABOLIC 55093 BUN 17 MG/DL 2013 Unknown COMPREHENSIVE METABOLIC 34789 ALBUMIN 4.6 GM/DL 2013 Unknown COMPREHENSIVE METABOLIC 15917 CHLORIDE 107 MMOL/L 12/11 Unknown COMPREHENSIVE METABOLIC 79636 BILI TOT 0.7 MG/DL 2013 Unknown COMPREHENSIVE METABOLIC 84336 ALK PHOS 53 U/L 2013 Unknown COMPREHENSIVE METABOLIC 20361 SODIUM 140 MMOL/L 12/11 Unknown COMPREHENSIVE METABOLIC 39063 CREATININE 0.84 MG/DL 06/2013 Unknown COMPREHENSIVE METABOLIC 75423 CALCIUM 9.7 MG/DL 2013 Unknown COMPREHENSIVE METABOLIC 35688 POTASSIUM 4.6 MMOL/L 12/11 Unknown COMPREHENSIVE METABOLIC 17748 PROT TOT 6.9 GM/DL 2013 Unknown COMPREHENSIVE METABOLIC 52752 Glucose 97 MG/DL 2013 Unknown COMPREHENSIVE METABOLIC 32280 BICARB 25 MMOL/L 2013 Unknown COMPREHENSIVE METABOLIC 40201 ANION GAP 8 MEQ/L 2013 Unknown FREE T4 35655 FREE T4 1.11 NG/DL 12/11/2013 Unknown ASSAY OF CREATININE 68380 CREATININE 0.98 MG/DL 09/15/19 12 Unknown URIC ACID 54760 URIC ACID 4.9 MG/DL 09/15/2011 Unknown GFR CALC 6458178 GFR AA >60 ML/MIN 09/15/2011 Unknown GFR CALC 3891879 GFR NON-AA >60 ML/MIN 09/15/2011 Unknown THYROID STIMULATING HORMONE 65354 TSH 1.687 uIU/ML 08/01/2011 Unknown FREE T4 80837 FREE T4 0.96 NG/DL 08/01/2011 Unknown SJOGRENS 9598598 SJOGRN A <20 EU/ML 08/01/2011 Unknown SJOGRENS 1560014 SJOGRN B <20 EU/ML 08/01/2011 Unknown SJOGRENS 7578901 NONHIS INT SEE BELO 08/01/2011 Unknown THYRO PERX 4906888 THYRO PERX 175.34 UNITS 07/30/2011 Unkn own DNA AB 6021017 DNA AB 32 IU/ML 07/29/2011 Unknown TITER WENDI 6467717 TITR WENDI 1:160 07/29/2011 Unknown TITER WENDI 5932387 PATTERN NUCLEOLR 07/29/2011 Unknown ANTINUCLEAR ANTIBODY SCREEN 07989 WENDI SCR POSITIVE Unknown COMPREHENSIVE METABOLIC 78130 AST 23 U/L 2011 Unknown COMPREHENSIVE METABOLIC 98509 ALT 26 IU/L 2011 Unknown COMPREHENSIVE METABOLIC 95448 BUN 18 MG/DL 2011 Unknown COMPREHENSIVE METABOLIC 45234 ALBUMIN 4.6 GM/DL 2011 Unknown COMPREHENSIVE METABOLIC 30251 CHLORIDE 105 MMOL/L 07/27 Unknown COMPREHENSIVE METABOLIC 92955 BILI TOT 0.5 MG/DL 2011 Unknown COMPREHENSIVE METABOLIC 94350 ALK PHOS 63 U/L 2011 Unknown COMPREHENSIVE METABOLIC 24623 SODIUM 138 MMOL/L 07/27 Unknown COMPREHENSIVE METABOLIC 17136 CREATININE 0.92 MG/DL 07/09 Unknown COMPREHENSIVE METABOLIC 55962 CALCIUM 9.4 MG/DL 2011 Unknown COMPREHENSIVE METABOLIC 25345 POTASSIUM 3.9 MMOL/L 07/27 Unknown COMPREHENSIVE METABOLIC 91784 PROT TOT 6.7 GM/DL 2011 Unknown COMPREHENSIVE METABOLIC 78743 Glucose 101 MG/DL 2011 Unknown COMPREHENSIVE METABOLIC 82082 BICARB 24 MMOL/L 2011 Unknown COMPREHENSIVE METABOLIC 11386 ANION GAP 9 MEQ/L 2011 Unknown GFR CALC 8863772 GFR AA >60 ML/MIN 07/28/2011 Unknown GFR CALC 6079817 GFR NON-AA >60 ML/MIN 07/28/2011 Unknown ERYTHROCYTE SEDIMENTATION RATE 18810 ESR 2 MM/HR 07/28/2011 Unknown URIC ACID 78651 URIC ACID 5.8 MG/DL 07/28/2011 Unknown C-REACTIVE PROTEIN (CRP) QUANT 40240 CRP 0.2 MG/DL 07/28/2011 Unknown TITER WENDI 2667995 TITR WENDI 1:160 05/26/2011 Unknown TITER WENDI 1852169 PATTERN NUCLEOLR 05/26/2011 Unknown RA FACTOR 09794 RA FACTOR <20.0 IU/ML 05/26/2011 Unknown ANTINUCLEAR ANTIBODY SCREEN 30325 WENDI SCR POSITIVE Unknown URIC ACID 09461 URIC ACID 8.7 MG/DL 05/25/2011 Unknown PSA EQUIMOLAR JONATAN 45466 PSA EQ 2.79 NG/ML 2 Unknown LIPID GROUP 56172 HDL TEST 47 MG/DL 05/25/2011 Unknown LIPID GROUP 91348 TRIG 198 MG/DL 05/25/2011 Unknown LIPID GROUP 61878 TEST LDL 180 MG/DL 05/25/2011 Unknown LIPID GROUP 94231 CHOL 267 MG/DL 05/25/2011 Unknown LIPID GROUP 36198 RCHOL/HDL 5.68 RATIO 05/25/2011 Unknow n COMPREHENSIVE METABOLIC 67863 AST 21 U/L 2011 Unknown COMPREHENSIVE METABOLIC 93640 ALT 21 IU/L 2011 Unknown COMPREHENSIVE METABOLIC 76070 BUN 16 MG/DL 2011 Unknown COMPREHENSIVE METABOLIC 93991 ALBUMIN 4.4 GM/DL 2011 Unknown COMPREHENSIVE METABOLIC 42857 CHLORIDE 105 MMOL/L 05/25 Unknown COMPREHENSIVE METABOLIC 08715 BILI TOT 0.7 MG/DL 2011 Unknown COMPREHENSIVE METABOLIC 14458 ALK PHOS 60 U/L 2011 Unknown COMPREHENSIVE METABOLIC 90172 SODIUM 139 MMOL/L 05/25 Unknown COMPREHENSIVE METABOLIC 34464 CREATININE 0.92 MG/DL 05/11 Unknown COMPREHENSIVE METABOLIC 68878 CALCIUM 9.4 MG/DL 2011 Unknown COMPREHENSIVE METABOLIC 73263 POTASSIUM 4.1 MMOL/L 05/25 Unknown COMPREHENSIVE METABOLIC 76767 PROT TOT 7.0 GM/DL 2011 Unknown COMPREHENSIVE METABOLIC 77745 Glucose 108 MG/DL 2011 Unknown COMPREHENSIVE METABOLIC 26690 BICARB 25 MMOL/L 2011 Unknown COMPREHENSIVE METABOLIC 21701 ANION GAP 9 MEQ/L 2011 Unknown GFR CALC [id number] GFR AA >60 ML/MIN 05/25/2011 Unknown GFR CALC [id number] GFR NON-AA >60 ML/MIN 05/25/2011 Unknown COMPLETE BLOOD COUNT 54873 WBC 5.6 10e9/L 05/25/19 12 Unknown COMPLETE BLOOD COUNT 33861 RBC 5.01 10e12/L 2011 Unknown COMPLETE BLOOD COUNT 70070 HGB 15.8 g/dL 2 Unknown COMPLETE BLOOD COUNT 82469 HCT DET 46.1 % 2 Unknown COMPLETE BLOOD COUNT 22649 MCV 92.0 fL 2 Unknown COMPLETE BLOOD COUNT 91480 MCH 31.5 pg 2 Unknown COMPLETE BLOOD COUNT 49249 MCHC 34.3 g/dL 2 Unknown COMPLETE BLOOD COUNT 55106 PLT 246 10e9/L 05/25/19 12 Unknown COMPLETE BLOOD COUNT 69046 MPV 10.3 fL 2 Unknown COMPLETE BLOOD COUNT 96180 VERONIQUE % 47.1 % 2 Unknown COMPLETE BLOOD COUNT 19090 LY % 41.0 % 2 Unknown COMPLETE BLOOD COUNT 68172 MON % 8.9 % 2 Unknown COMPLETE BLOOD COUNT 84789 EOS % 2.5 % 2 Unknown COMPLETE BLOOD COUNT 05233 BASO % 0.5 % 2 Unknown COMPLETE BLOOD COUNT 27949 RDW 12.7 % 2 Unknown COMPLETE BLOOD COUNT 25480 ABS VERONIQUE 2.64 10e9/L 012 Unknown COMPLETE BLOOD COUNT 16474 ABS LYMPH 2.30 10e9/L 012 Unknown COMPLETE BLOOD COUNT 95479 ABS MONO 0.50 10e9/L 012 Unknown COMPLETE BLOOD COUNT 94588 ABS EOS 0.14 10e9/L 012 Unknown COMPLETE BLOOD COUNT 28627 ABS BASO 0.03 10e9/L 012 Unknown COMPLETE BLOOD COUNT 83274 RDW-SD 41.3 fL 2 Unknown COMPREHENSIVE METABOLIC 74303 AST 18 U/L 2010 Unknown COMPREHENSIVE METABOLIC 82753 ALT 14 IU/L 2010 Unknown COMPREHENSIVE METABOLIC 04044 BUN 12 MG/DL 2010 Unknown COMPREHENSIVE METABOLIC 96213 ALBUMIN 4.6 GM/DL 2010 Unknown COMPREHENSIVE METABOLIC 16333 CHLORIDE 102 MMOL/L 02/01 Unknown COMPREHENSIVE METABOLIC 27470 BILI TOT 0.6 MG/DL 2010 Unknown COMPREHENSIVE METABOLIC 48971 ALK PHOS 66 U/L 2010 Unknown COMPREHENSIVE METABOLIC 86607 SODIUM 139 MMOL/L 02/01 Unknown COMPREHENSIVE METABOLIC 53136 CREATININE 0.92 MG/DL 01/09 Unknown COMPREHENSIVE METABOLIC 41678 CALCIUM 9.8 MG/DL 2010 Unknown COMPREHENSIVE METABOLIC 97598 POTASSIUM 4.1 MMOL/L 02/01 Unknown COMPREHENSIVE METABOLIC 68072 PROT TOT 7.0 GM/DL 2010 Unknown COMPREHENSIVE METABOLIC 76479 Glucose 101 MG/DL 2010 Unknown COMPREHENSIVE METABOLIC 72467 BICARB 25 MMOL/L 2010 Unknown COMPREHENSIVE METABOLIC 28572 ANION GAP 12 MEQ/L 2010 Unknown GFR CALC 3260016 GFR AA >60 ML/MIN 02/01/2011 Unknown GFR CALC [id number] GFR NON-AA >60 ML/MIN 02/01/2011 Unknown LIPID GROUP 71716 HDL TEST 44 MG/DL 02/01/2011 Unknown LIPID GROUP 85429 TRIG 157 MG/DL 02/01/2011 Unknown LIPID GROUP 60465 TEST LDL 193 MG/DL 02/01/2011 Unknown LIPID GROUP 24955 CHOL 268 MG/DL 02/01/2011 Unknown LIPID GROUP 84621 RCHOL/HDL 6.09 RATIO 02/01/2011 Unknow n FREE T4 89788 FREE T4 1.04 NG/DL 02/01/2011 Unknown COMPLETE BLOOD COUNT 89299 WBC 6.4 10e9/L 02/02/20 11 Unknown COMPLETE BLOOD COUNT 97918 RBC 4.56 10e12/L 2010 Unknown COMPLETE BLOOD COUNT 63929 HGB 14.4 g/dL 1 Unknown COMPLETE BLOOD COUNT 59126 HCT DET 43.0 % 1 Unknown COMPLETE BLOOD COUNT 97982 MCV 94.3 fL 1 Unknown COMPLETE BLOOD COUNT 25244 MCH 31.6 pg 1 Unknown COMPLETE BLOOD COUNT 44723 MCHC 33.5 g/dL 1 Unknown COMPLETE BLOOD COUNT 08729 PLT 300 10e9/L 02/02/20 11 Unknown COMPLETE BLOOD COUNT 37931 MPV 9.9 fL 1 Unknown COMPLETE BLOOD COUNT 35991 VERONIQUE % 38.5 % 1 Unknown COMPLETE BLOOD COUNT 39635 LY % 49.1 % 1 Unknown COMPLETE BLOOD COUNT 70058 MON % 10.1 % 1 Unknown COMPLETE BLOOD COUNT 10513 EOS % 1.7 % 1 Unknown COMPLETE BLOOD COUNT 58630 BASO % 0.6 % 1 Unknown COMPLETE BLOOD COUNT 77568 RDW 15.1 % 1 Unknown COMPLETE BLOOD COUNT 26981 ABS VERONIQUE 2.46 10e9/L 011 Unknown COMPLETE BLOOD COUNT 90742 ABS LYMPH 3.14 10e9/L 011 Unknown COMPLETE BLOOD COUNT 68753 ABS MONO 0.65 10e9/L 011 Unknown COMPLETE BLOOD COUNT 61832 ABS EOS 0.11 10e9/L 011 Unknown COMPLETE BLOOD COUNT 53761 ABS BASO 0.04 10e9/L 011 Unknown COMPLETE BLOOD COUNT 66556 RDW-SD 50.6 fL 1 Unknown THYROID STIMULATING HORMONE 50711 TSH 1.128 uIU/ML 02/01/2011 Unknown PSA EQUIMOLAR JONATAN 45527 PSA EQ 3.83 NG/ML 1 Unknown VCA AB G/M 5062435 EBV G VCA 3.34 12/03/2010 Unknown VCA AB G/M 7938509 EBV M VCA 0.12 12/03/2010 Unknown EB GARY AG [id number] EB GARY AG 0.47 12/03/2010 Unknown EB NUCL AB [id number] EB NUCL AB 3.72 12/03/2010 Unknown COMPLETE BLOOD COUNT 84797 WBC 8.0 10e9/L 12/03/19 11 Unknown COMPLETE BLOOD COUNT 80037 RBC 4.93 10e12/L 2010 Unknown COMPLETE BLOOD COUNT 53173 HGB 15.7 g/dL 1 Unknown COMPLETE BLOOD COUNT 68028 HCT DET 45.4 % 1 Unknown COMPLETE BLOOD COUNT 28577 MCV 92.1 fL 1 Unknown COMPLETE BLOOD COUNT 36770 MCH 31.8 pg 1 Unknown COMPLETE BLOOD COUNT 17108 MCHC 34.6 g/dL 1 Unknown COMPLETE BLOOD COUNT 69128 PLT 248 10e9/L 12/03/19 11 Unknown COMPLETE BLOOD COUNT 13041 MPV 10.4 fL 1 Unknown COMPLETE BLOOD COUNT 75102 VERONIQUE % 74.0 % 1 Unknown COMPLETE BLOOD COUNT 37452 LY % 19.6 % 1 Unknown COMPLETE BLOOD COUNT 44974 MON % 5.2 % 1 Unknown COMPLETE BLOOD COUNT 08170 EOS % 1.1 % 1 Unknown COMPLETE BLOOD COUNT 06015 BASO % 0.1 % 1 Unknown COMPLETE BLOOD COUNT 79441 RDW 12.5 % 1 Unknown COMPLETE BLOOD COUNT 49523 ABS VERONIQUE 5.92 10e9/L 011 Unknown COMPLETE BLOOD COUNT 57325 ABS LYMPH 1.57 10e9/L 011 Unknown COMPLETE BLOOD COUNT 46652 ABS MONO 0.42 10e9/L 011 Unknown COMPLETE BLOOD COUNT 75435 ABS EOS 0.09 10e9/L 011 Unknown COMPLETE BLOOD COUNT 18764 ABS BASO 0.01 10e9/L 011 Unknown COMPLETE BLOOD COUNT 48673 RDW-SD 41.1 fL 1 Unknown URIC ACID 56432 URIC ACID 9.3 MG/DL 12/02/2010 Unknown Procedures Procedure Codes Date DRAINAGE OF SKIN ABSCESS CPT-4: 19766 01/23/2019 AEROBIC WOUND CULTURE & STN CPT-4: 11409 01/23/2019 ROUTINE VENIPUNCTURE CPT-4: 56308 03/29/2017 ASSAY THYROID STIM HORMONE CPT-4: 29152 03/29/2017 ASSAY OF FREE THYROXINE CPT-4: 49708 03/29/2017 COMPREHEN METABOLIC PANEL CPT-4: 55572 03/29/2017 COMPLETE CBC W/AUTO DIFF WBC CPT-4: 45793 03/29/2017 LIPID PANEL CPT-4: 55823 03/29/2017 ASSAY OF BLOOD/URIC ACID CPT-4: 96014 03/29/2017 RBC SED RATE AUTOMATED CPT-4: 83033 03/29/2017 ROUTINE VENIPUNCTURE CPT-4: 58168 03/15/2017 ACUTE HEPATITIS PANEL CPT-4: 21897 03/15/2017 HIV-1/HIV-2 1 RESULT ANTBDY CPT-4: 10267 03/15/2017 EXC TR-EXT B9+SHASHA 0.5 CM< CPT-4: 24489 03/15/2017 EXC TR-EXT B9+SHASHA 1.1-2 CM CPT-4: 37936 03/15/2017 URINALYSIS NONAUTO W/O SCOPE CPT-4: 77362 01/07/2015 URINE CULTURE/ COLONY COUNT CPT-4: 93836 01/07/2015 ROUTINE VENIPUNCTURE CPT-4: 41417 01/07/2015 ASSAY OF FREE THYROXINE CPT-4: 71998 01/07/2015 ASSAY THYROID STIM HORMONE CPT-4: 78746 01/07/2015 COMPREHEN METABOLIC PANEL CPT-4: 11848 01/07/2015 COMPLETE CBC W/AUTO DIFF WBC CPT-4: 32508 01/07/2015 LIPID PANEL CPT-4: 40143 01/07/2015 ASSAY OF PSA TOTAL CPT-4: 14902 01/07/2015 ASSAY OF BLOOD/URIC ACID CPT-4: 69444 01/07/2015 ROUTINE VENIPUNCTURE CPT-4: 16957 12/11/2013 ASSAY OF FREE THYROXINE CPT-4: 63601 12/11/2013 ASSAY THYROID STIM HORMONE CPT-4: 32788 12/11/2013 COMPREHEN METABOLIC PANEL CPT-4: 54110 12/11/2013 COMPLETE CBC W/AUTO DIFF WBC CPT-4: 10399 12/11/2013 LIPID PANEL CPT-4: 86574 12/11/2013 ASSAY OF BLOOD/URIC ACID CPT-4: 33144 12/11/2013 ASSAY OF PSA TOTAL CPT-4: 32238 12/11/2013 URINE CULTURE/ COLONY COUNT CPT-4: 43739 01/02/2013 AEROBIC WOUND CULTURE & STN CPT-4: 64920 10/10/2011 DRAINAGE OF SKIN ABSCESS CPT-4: 62023 10/10/2011 ASSAY OF CREATININE CPT-4: 42274 09/15/2011 ASSAY OF BLOOD/URIC ACID CPT-4: 93282 09/15/2011 ROUTINE VENIPUNCTURE CPT-4: 24007 07/28/2011 ANTINUCLEAR ANTIBODIES CPT-4: 28259 07/28/2011 RBC SED RATE AUTOMATED CPT-4: 30050 07/28/2011 ASSAY OF BLOOD/URIC ACID CPT-4: 86822 07/28/2011 COMPREHEN METABOLIC PANEL CPT-4: 14074 07/28/2011 C-REACTIVE PROTEIN CPT-4: 67727 07/28/2011 THYRO PERX CPT-4: 4793276 07/28/2011 DNA AB CPT-4: 7139322 07/28/2011 SJOGRENS CPT-4: 8088146 07/28/2011 ASSAY OF FREE THYROXINE CPT-4: 21518 07/28/2011 ASSAY THYROID STIM HORMONE CPT-4: 79075 07/28/2011 ROUTINE VENIPUNCTURE CPT-4: 46317 05/25/2011 COMPREHEN METABOLIC PANEL CPT-4: 69383 05/25/2011 COMPLETE CBC W/AUTO DIFF WBC CPT-4: 55560 05/25/2011 ANTINUCLEAR ANTIBODIES CPT-4: 44124 05/25/2011 RHEUMATOID FACTOR QUANT CPT-4: 11646 05/25/2011 ASSAY OF PSA TOTAL CPT-4: 50012 05/25/2011 ASSAY OF BLOOD/URIC ACID CPT-4: 59759 05/25/2011 LIPID PANEL CPT-4: 80912 05/25/2011 ROUTINE VENIPUNCTURE CPT-4: 48380 02/01/2011 ASSAY OF FREE THYROXINE CPT-4: 02870 02/01/2011 ASSAY THYROID STIM HORMONE CPT-4: 17559 02/01/2011 COMPREHEN METABOLIC PANEL CPT-4: 41282 02/01/2011 COMPLETE CBC W/AUTO DIFF WBC CPT-4: 25744 02/01/2011 LIPID PANEL CPT-4: 26324 02/01/2011 ASSAY OF PSA TOTAL CPT-4: 51804 02/01/2011 ROUTINE VENIPUNCTURE CPT-4: 43580 12/02/2010 ASSAY OF BLOOD/URIC ACID CPT-4: 30312 12/02/2010 EB VIRUS VCA G/M + EBNA + EA CPT-4: 31472|68862 x 2|60916 COMPLETE CBC W/AUTO DIFF WBC CPT-4: 38314 12/02/2010 COMPREHEN METABOLIC PANEL CPT-4: 23906 09/14/2009 ASSAY OF BLOOD/URIC ACID CPT-4: 30244 09/14/2009 ROUTINE VENIPUNCTURE CPT-4: 36161 09/14/2009 URINALYSIS NONAUTO W/O SCOPE CPT-4: 51521 09/01/2009 Vital Signs Date Vital 05/17/2019 Blood [...] 1: 118/64 Code: 8480-6 BMI: 29.7 Code: 67998-8 Heart Rate 1: 100 bpm Height: 5'6" Respiratory Rate: 22 bpm SpO2: 95% Tempera ture: 36.7 (C) / 98.0 (F) Weight: 187 lbs 02/27/2017 Blood Pressure 1: 132/76 Code: 8480-6 BMI: 30.8 Code: 24612-0 Heart Rate 1: 96 bpm Height: 5'6" Respiratory Rate: 22 bpm SpO2: 98% Tempera ture: 36.6 (C) / 97.8 (F) Weight: 194 lbs 03/31/2015 Blood Pressure 1: 128/90 Code: 8480-6 Heart Rate 1: 88 bpm Respiratory Rate: 20 bpm Temperature: 36.9 (C) / 98.4 (F) Weight: 192 lbs 01/07/2015 Blood Pressure 1: 132/80 Code: 8480-6 BMI: 30.2 Code: 71590-4 Heart Rate 1: 78 bpm Height: 5'6" Respiratory Rate: 22 bpm Temperature: 36 .7 (C) / 98.1 (F) Weight: 190 lbs 04/15/2014 Blood Pressure 1: 136/88 Code: 8480-6 BMI: 31.0 Code: 89939-2 Heart Rate 1: 84 bpm Height: 5'6" Respiratory Rate: 20 bpm Temperature: 36 .1 (C) / 97.0 (F) Weight: 192 lbs 12/10/2013 Blood Pressure 1: 142/90 Code: 8480-6 BMI: 29.1 Code: 34987-2 Heart Rate 1: 72 bpm Height: 5'7" Respiratory Rate: 20 bpm Temperature: 36 .6 (C) / 97.8 (F) Weight: 186 lbs 05/02/2013 Blood Pressure 1: 146/96 Code: 8480-6 BMI: 30.5 Code: 35468-4 Heart Rate 1: 88 bpm Height: 5'7" Respiratory Rate: 20 bpm Temperature: 37 .0 (C) / 98.6 (F) Weight: 195 lbs 01/02/2013 Blood Pressure 1: 132/84 Code: 8480-6 BMI: 30.2 Code: 43072-6 Heart Rate 1: 80 bpm Height: 5'7" Respiratory Rate: 20 bpm Temperature: 36 .9 (C) / 98.4 (F) Weight: 193 lbs 10/10/2011 Blood Pressure 1: 122/68 Code: 8480-6 BMI: 35.7 Code: 53050-7 Heart Rate 1: 84 bpm Height: 5'2" Temperature: 36.9 (C) / 98.5 (F) Weight: 195 lbs 08/12/2011 Blood Pressure 1: 110/80 Code: 8480-6 BMI: 36.9 Code: 21301-6 Heart Rate 1: 80 bpm Height: 5'2" Temperature: 36.4 (C) / 97.6 (F) Weight: 202 lbs 08/04/2011 Blood Pressure 1: 126/80 Code: 8480-6 BMI: 37.9 Code: 14238-1 Heart Rate 1: 76 bpm Height: 5'2" Respiratory Rate: 20 bpm Temperature: 37 .0 (C) / 98.6 (F) Weight: 207 lbs 05/24/2011 Blood Pressure 1: 122/82 Code: 8480-6 BMI: 37.7 Code: 12347-2 Heart Rate 1: 68 bpm Height: 5'2" Temperature: 36.7 (C) / 98.1 (F) Weight: 206 lbs 04/15/2011 Blood Pressure 1: 128/82 Code: 8480-6 BMI: 37.1 Code: 52793-3 Heart Rate 1: 68 bpm Height: 5'2" [...] 1: 106/62 Code: 8480-6 BMI: 36.8 Code: 92406-1 Heart Rate 1: 90 bpm Height: 5'2" SpO2: 94% Temperature: 36.4 (C) / 97.6 (F) Weight: 201 lbs 12/02/2010 Blood Pressure 1: 142/90 Code: 8480-6 BMI: 36.8 Code: 16787-7 Heart Rate 1: 96 bpm Height: 5'2" [...] success Encounters Encounter Performer Location Codes Date ([id number]) OFFICE/OUTPATIENT VISIT EST Diagnosis: Acute contact dermatitis[ICD10: L25.9] Diagnosis: Acute sinusitis[ICD10: J01.90] Sylvie SAINZ [employer] CPT-4: 35564 05/17/2019 ([id number]) OFFICE/OUTPATIENT VISIT EST Diagnosis: Acute gastritis without bleeding[ICD10: K29.00] Diagnosis: Essential (primary) hypertension[ICD10: I10] Diagnosis: Hyperlipidemia, unspecified[ICD10: E78.5] Azra COOK [facility] CPT-4: 58920 10/31/2018 ([id number]) OFFICE/OUTPATIENT VISIT EST Diagnosis: Acute gastritis without bleeding[ICD10: K29.00] Azra SAINZ [employer] CPT-4: 15652 01/18/2018 ([id number]) OFFICE/OUTPATIENT VISIT EST Diagnosis: Hyperlipidemia, unspecified[ICD10: E78.5] Diagnosis: Essential (primary) hypertension[ICD10: I10] Diagnosis: Weakness[ICD10: R53.1] Diagnosis: Sebaceous cyst[ICD10: L72.3] Diagnosis: Idiopathic gout, unspecified site[ICD10: M10.00] Sylvie BYRNE [employer] [facility] CPT-4: 54643 03/29/2017 OFFICE/OUTPATIENT VISIT EST Diagnosis: Pain in right knee[ICD10: M25.561] Azra BYRNE [facility] [employer] CPT-4: 02226 03/13/2017 OFFICE/OUTPATIENT VISIT EST Diagnosis: Pain in right leg[ICD10: M79.604] Diagnosis: Sebaceous cyst[ICD10: L72.3] Azra BYRNE [facility] CPT-4: 44456 02/27/2017 OFFICE/OUTPATIENT VISIT EST Diagnosis: Local infection of the skin and subcutaneous tissue, unspecified[ICD10: L08.9] Diagnosis: Essential (primary) hypertension[ICD10: I10] Diagnosis: Hyperlipidemia, unspecified[ICD10: E78.5] Dagmar BYRNE [facility] CPT-4: 31313 03/31/2015 ([id number]) PREV VISIT EST AGE 40-64 Diagnosis: History of chest pain[ICD9: V13.89] Diagnosis: Right flank pain[ICD9: 789.09] Diagnosis: ROUTINE MEDICAL EXAM[ICD9: V70.0] Diagnosis: HYPERTENSION[ICD9: 401.9] Diagnosis: HYPERLIPIDEMIA NEC/NOS[ICD9: 272.4] Diagnosis: Colon polyps[ICD9: 211.3] Diagnosis: HEMATURIA NOS[ICD9: 599.70] Dagmar BYRNE [facility] CPT-4: 40593 01/07/2015 OFFICE/OUTPATIENT VISIT EST Diagnosis: COUGH[ICD9: 786.2] Diagnosis: Rectal itching[ICD9: 698.0] Dagmar BYRNE [facility] CPT-4: 56931 04/15/2014 ([id number]) OFFICE/OUTPATIENT VISIT EST Diagnosis: ROUTINE MEDICAL EXAM[ICD9: V70.0] Diagnosis: GOUT[ICD9: 274.9] Diagnosis: HYPERLIPIDEMIA NEC/NOS[ICD9: 272.4] Diagnosis: HYPERTENSION[ICD9: 401.9] Sylvie SILVERIO [facility] CPT-4: 66934 12/11/2013 ([id number]) OFFICE/OUTPATIENT VISIT EST Diagnosis: Shingles[ICD9: 053.9] Sylvie BYRNE [facility] CPT-4: 02668 12/10/2013 ([id number]) OFFICE/OUTPATIENT VISIT EST Diagnosis: HYPERTENSION[ICD9: 401.9] Diagnosis: Colon polyps[ICD9: 211.3] Diagnosis: Stress reaction[ICD9: 308.9] Sylvie BYRNE [facility] CPT-4: 26474 05/02/2013 ([id number]) OFFICE/OUTPATIENT VISIT EST Diagnosis: URINARY TRACT INFECTION[ICD9: 599.0] Sylvie ChapaFrancisco [facility] CPT-4: 98476 01/02/2013 OFFICE/OUTPATIENT VISIT EST Diagnosis: CELLULITIS OF TRUNK[ICD9: 682.2] Diagnosis: SPRAIN SHOULDER/ARM[ICD9: 840.9] Liza Ragsdale SYLVIE BYRNE [facility] CPT-4: 52345 10/10/2011 ([id number]) OFFICE/OUTPATIENT VISIT EST Diagnosis: GOUT[ICD9: 274.9] Sylvie BYRNE [facility] CPT-4: 02615 09/15/2011 OFFICE/OUTPATIENT VISIT EST Diagnosis: DIARRHEA[ICD9: 787.91] Sylvie WILSONLINE SammiFrancisco HUONG Cagle [facility] CPT-4: 12143 08/12/2011 ([id number]) OFFICE/OUTPATIENT VISIT EST Diagnosis: GOUT[ICD9: 274.9] Diagnosis: Positive WENDI (antinuclear antibody)[ICD9: 795.79] Sylvie BYRNE [facility] CPT-4: 38472 08/04/2011 OFFICE/OUTPATIENT VISIT EST Diagnosis: Rash[ICD9: 782.1] Diagnosis: Joint pain[ICD9: 719.40] Diagnosis: Hyperlipidemia[ICD9: 272.4] Sylvie ChapaFrancisco O RENDER DO [facility] CPT-4: 73166 05/24/2011 OFFICE/OUTPATIENT VISIT EST Diagnosis: PHARYNGITIS, ACUTE[ICD9: 462] Diagnosis: COUGH[ICD9: 786.2] Diagnosis: SINUSITIS, ACUTE[ICD9: 461.9] Sylvie BYRNE [facility] CPT-4: 55039 04/15/2011 OFFICE/OUTPATIENT VISIT EST Diagnosis: Clavicle fracture[ICD9: 810.00] Sylvie BYRNE [facility] CPT-4: 42667 01/13/2011 OFFICE/OUTPATIENT VISIT EST Diagnosis: Clavicle pain[ICD9: 719.41] Sylvie ChapaFrancisco Shad RENDER [facility] CPT-4: 83672 12/23/2010 OFFICE/OUTPATIENT VISIT EST Diagnosis: Arm pain[ICD9: 729.5] Diagnosis: SPASM OF MUSCLE[ICD9: 728.85] Diagnosis: Neck pain[ICD9: 723.1] Sylvie Cagle [facility] CPT-4: 89004 12/15/2010 OFFICE/OUTPATIENT VISIT EST Diagnosis: HYPERTENSION[ICD9: 401.9] Diagnosis: PHARYNGITIS, ACUTE[ICD9: 462] Diagnosis: MALAISE AND FATIGUE[ICD9: 780.79] Diagnosis: GOUT[ICD9: 274.9] Sylvie BYRNE [facility] CPT-4: 55442 12/02/2010 ([id number]) OFFICE/OUTPATIENT VISIT, EST Sylvie Byrne JUVENTINO GUICHIQUITA SammiFrancisco [facility] CPT-4: 84485 04/19/2010 ([id number]) OFFICE/OUTPATIENT VISIT, EST Sylvie Yvanashwini JAUREGUI GUICHIQUITA [employer]Franc[employer] [facility] CPT-4: 27712 04/14/2010 ([id number]) OFFICE/OUTPATIENT VISIT, EST Sylviegriselda Santoroscarlettchris JUVENTINO GUICHIQUITA SammiFrancisco [facility] CPT-4: 77395 09/01/2009 Plan of Care Planned Activity Notes Codes Status Date Visit Diagnosis Plan: Acute contact dermatitis Discuss ion: Kenalog 40mg IM now Cover with [employer] Call in 1week on how doing Medrol Dose Pack ICD-9 : 692.9 ICD-10 : L25.9 05/17/2019 Patient Education: Medrol (Nicholas)- OptimizeRX Coupon [phone] [email or web address]/[email or web address] Completed 05/17/2019 Visit Diagnosis Plan: Abscess of chest wall Discussion : patient has large amount of induration still noted despite recent drainage and antibiotics. dr. najera's office was called and they were able to see patient today. patient was sent over there for possible surgery. ICD-9 : 682.2 ICD-10 : L02.213 01/25/2019 Appointment: Azra Bradley [address] [place] [address] FOLLOW UP 01/25/2019 Visit Diagnosis Plan: Abscess [...] ICD-10 : L02.213 01/23/2019 Appointment: Azra Bradley [address] [place] [address] [facility] appt OF FICE SURGERY 01/23/2019 Patient Education: clindamycin HCl- OptimizeRX Coupon [phone] [email or web address]/resources/getResource/61/[email or web address] Completed 01/23/2019 Appointment: Azra Bradley [address] [place], [place] [id number] CANCELED 01/16/2019 Visit Diagnosis Plan: Acute gastritis [...] ICD-10 : E78.5 10/31/2018 Appointment: Azra Bradley [address] [place], [place] [phone] ACUTE ILLNESS 10/31/2018 Patient Education: High Blood [...] ICD-10 : K29.00 01/18/2018 Appointment: Azra Bradley [address] [place], [place] [phone] ACUTE ILLNESS 01/18/2018 Patient Education: Patient Medication Summary Completed 01/18/2018 Appointment: Sylvie Byrne WPtel: [phone] [facility] US LAB 03/29/2017 Patient Education: Patient Medication [...] ICD-10 : L72.3 03/15/2017 Appointment: Azra Bradley [address] [place], [place] [phone] OFFICE SURGERY 03/15/2017 Patient Education: Patient Medication [...] ICD-10 : M25.561 03/13/2017 Appointment: Azra Bradley [address] [place] [address] ACUTE ILLNESS 03/13/2017 Patient Education: Patient Medication Summary Completed 03/13/2017 Care Plan: X-RAY EXAM OF KNEE 1 OR 2 ATUL [place] : 71333-7 Pending 03/13/2017 Visit Diagnosis Plan: Pain in [...] ICD-10 : L72.3 02/27/2017 Appointment: Azra Bradley [address] [place] [address] ACUTE ILLNESS 02/27/2017 Patient Education: Patient Medication Summary Completed 02/27/2017 Appointment: Katerina Sousa WPtel: [phone] ACUTE ILLNESS 08/21/2015 Visit Plan: Has [...] back. 03/31/2015 Appointment: Dagmar Ahmadi WPtel: [phone] 03/30 Confirmed ~sl FOLLOW UP 03/31/2015 [...] - Candido 01/07/2015 Appointment: Dagmar Ahmadi WPtel: [address] [place] [address] 01/06 appointment confirmed cn Annual Well Visit 01/07/2015 Patient Education: Patient Medication Summary Completed 01/07/2015 Patient Education: [facility] - Saving [employer] - Lisinopril - 18-64 - Dynamic Portal ID Completed 01/07/2015 Appointment: Sylvie Byrne WPtel: [address] [place] [address] ACUTE ILLNESS 08/26/2014 Appointment: Dagmar Ahmadi WPtel: [address] [place] [address] ACUTE ILLNESS 04/15/2014 Patient Education: Patient Medication Summary Completed 04/15/2014 Appointment: Sylvie Byrne WPtel: [address] [place] [address] US LAB 12/11/2013 Patient Education: Patient Medication Summary Completed 12/11/2013 Visit Plan: Check CBC, CMP, TSH, Free T4 , Lipids, uric acid, PSA--pt will return in AM for fasting lab Finish acyclovir Discussed Zostavax down road 12/10/2013 Appointment: Sylvie Byrne WPtel: [address] [place] [address] 12/06 left message FOLLOW UP 12/10/2013 Patient Education: Patient Medication Summary Completed 12/10/2013 Visit Plan: Lisinopril 20mg daily Stress Reducers and trial of fluoxetine 10mg q am Proceed with colonoscopy Check fasting lab 05/02/2013 Appointment: Sylvie Byrne WPtel: [address] [place] [address] ACUTE ILLNESS 05/02/2013 Patient Education: Patient Medication Summary Completed 05/02/2013 Appointment: Sylvie Byrne WPtel: [address] [place], [place] [phone] ACUTE ILLNESS 01/02/2013 Patient Education: Patient Medication Summary Completed 01/02/2013 Appointment: Liza Ragsdale WPtel: [address] [place], [place] [phone] ACUTE ILLNESS 10/10/2011 Patient Education: Patient Medication Summary Completed 10/10/2011 Appointment: Sylvie Byrne WPtel: [address] [place], [place] [phone] US LAB 09/15/2011 Patient Education: Patient Medication [...] 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 08/12/2011 Appointment: Liza Ragsdale WPtel: [address] [place] [address] ACUTE ILLNESS 08/12/2011 Patient Education: Patient Medication Summary Completed 08/12/2011 Visit Plan: Continue increased dose of a llopurinol and daily colcrys Recheck thyroid lab, uric acid and PSA in 3mos Will hold on NSAID at this time due to history of GERD 08/04/2011 Appointment: Sylvie Byrne WPtel: [address] [place], [place] [phone] FOLLOW UP 08/04/2011 Patient Education: Patient Medication Summary Completed 08/04/2011 Appointment: Sylvie Byrne WPtel: [address] [place], [place] [phone] US LAB 07/28/2011 Patient Education: Patient Medication Summary Completed 07/28/2011 Appointment: Sylvie Byrne WPtel: [address] [place], [place] [phone] US LAB 05/25/2011 Patient Education: Patient Medication [...] at night. 05/24/2011 Appointment: Liza Ragsdale WPtel: [address] [place] [address] ACUTE ILLNESS 05/24/2011 Patient Education: Patient Medication Summary Completed 05/24/2011 Visit Plan: codeine/guif cough syrup and cefdinir are phoned to [facility]. Discussed fluids and rest. Pt. will notify if symptoms persist or worsen. 04/15/2011 Appointment: Liza Ragsdale WPtel: [address] [place] [address] ACUTE ILLNESS 04/15/2011 Patient Education: Patient Medication Summary Completed 04/15/2011 Appointment: Sylvie Byrne WPtel: [address] [place], [place] [phone] US LAB 02/01/2011 Patient Education: Patient Medication Summary Completed 02/01/2011 Visit Plan: Repeat clavicle x-ray in 6wk s Check bone density 01/13/2011 Appointment: Sylvie Byrne WPtel: [address] [place], [place] [phone] US FOLLOW UP 01/13/2011 Patient Education: Patient Medication Summary Completed 01/13/2011 Visit Plan: Check right clavicle and alda ulder x-ray Continue Vimovo and flexeril 12/23/2010 Appointment: Sylvie Byrne WPtel: [address] [place], [place] [phone] US FOLLOW UP 12/23/2010 Patient Education: Patient Medication Summary Completed 12/23/2010 Appointment: Sylvie Byrne WPtel: [address] [place], [place] [phone] ER Follow UP 12/15/2010 Patient Education: Patient [...] BP check. 12/02/2010 Appointment: Liza Ragsdale WPtel: [address] [place] [address] ACUTE ILLNESS 12/02/2010 Patient Education: Patient Medication Summary Completed 12/02/2010 Care Plan: ASSAY OF BLOOD/URIC ACID Pendi ng 12/02/2010 Care Plan: VCA AB G/M Pending 2010 Care Plan: EB GARY AG Pending 2010 Care Plan: EB NUCL AB Pending 2010 Appointment: Sylvie Byrne WPtel: [address] [place] [address] FOLLOW UP 11/18/2010 Visit Plan: benadryl 25 mg tab QHS. 12.5 mg tab every 8 hrs during the day. Pt. will notify if symptoms worsen. No facial edema present. 04/19/2010 Appointment: Liza Ragsdale WPtel: [address] [place], [place] [phone] FOLLOW UP 04/19/2010 Patient Education: Patient Medication [...] no improvement. 04/14/2010 Appointment: Liza Ragsdale WPtel: [address] [place], [place] [phone] ACUTE ILLNESS 04/14/2010 Patient Education: Patient Medication Summary Completed 04/14/2010 Appointment: Liza Ragsdale WPtel: [address] [place], [place] [phone] ACUTE ILLNESS 03/12/2010 Appointment: Sylvie Byrne WPtel: [address] [place], [place] [phone] US LAB 09/14/2009 Patient Education: Patient Medication Summary Completed 09/14/2009 Appointment: Sylvie Byrne WPtel: [address] [place], [place] [phone] ACUTE ILLNESS 09/01/2009 Patient Education: Patient [...] 100 mg Ciprofloxacin 500 mg PO bid [facility] app[facility] for follow-up [facility] - [place] . 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 . Continue increased dose of [...]
--- OUTSIDE RECORDS SUMMARY | 2019-10-17 10:40 | XMS REPORT | CCD ---
Author Author Renan Byrne D.O. 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 Name Role Phone Sylvie Byrne D.O., PP Unavailable CCM Unavailable Summary Purpose Interface Exchange Insurance Providers Payer name Policy type / Coverage type Covered constitution party ID Effective Begin Date Effective End Date WPS MEDICARE PART B [place] Medicare Part B [id number] Unknown [facility] Medicare Part B [id number] Unknown Family History Family History data not found Social History Social History Element Codes Description Effective Dates Tobacco history SNOMED CT: 204605814 Nonsmoker 12/02/2010 Allergies, Adverse Reactions, Alerts Substance [...] mg tablets in a dose pack RxNorm: 462612 6 Tablet(s) Oral QD --then as directed 05/17/2019 05/23/2019 Active Elimite 5 % topical cream RxNorm: 716497 Application To pical QPM from head to toe 05/17/2019 07/16/2019 Active Osteo Bi-Flex 250 mg-200 mg tablet RxNorm: 472562 2 Tablet(s) O ral QD 01/23/2019 No Stop Date Active clindamycin HCl 300 mg capsule RxNorm: 256735 2 Capsule (s) Oral three times a day 01/23/2019 01/30/2019 Inactive Flagyl 500 mg tablet RxNorm: 874049 1 Tablet(s) PO BID 10/31/2018 Inactive lisinopril 20 mg tablet RxNorm: 937056 1 Tablet(s) PO QD for bl ood pressure 09/13/2018 12/11/2018 Inactive allopurinol 100 mg tablet RxNorm: 256831 1 Tablet(s) PO QD 09/14/19 19 12/11/2018 Inactive Flagyl 500 mg tablet RxNorm: 602542 1 Tablet(s) PO BID 01/18/2018 Inactive Cipro 250 mg tablet RxNorm: 481101 1 Tablet(s) PO BID 01/18/201801/08 Inactive lisinopril 20 mg tablet RxNorm: 080732 1 Tablet(s) PO QD for bl ood pressure 11/06/2017 02/03/2018 Inactive allopurinol 100 mg tablet RxNorm: 620672 1 Tablet(s) PO QD 11/07/19 18 02/03/2018 Inactive allopurinol 100 mg tablet RxNorm: 103535 1 Tablet(s) PO QD 04/11/19 18 10/07/2017 Inactive lisinopril 20 mg tablet RxNorm: 336698 1 Tablet(s) PO QD for bl ood pressure 04/07/2017 11/05/2017 Inactive prednisone 20 mg tablet RxNorm: 952416 2 Tablet(s) PO QD 03/15/2017 1 05/18/2016 Inactive tramadol 50 mg tablet RxNorm: 810755 1-2 Tablet(s) PO TID as needed 03/13/2017 08/06/2017 Inactive Medrol (Nicholas) 4 mg tablets in a dose pack RxNorm: 837393 Tablet(s) PO As Directed 02/28/2017 08/01/2017 Inactive allopurinol 100 mg tablet RxNorm: 430296 1 Tablet(s) PO QD 04/11/19 17 04/11/2017 Inactive lisinopril 20 mg tablet RxNorm: 454169 1 Tablet(s) PO QD for bl ood pressure 04/11/2016 04/07/2017 Inactive pravastatin 20 mg tablet RxNorm: 217407 1 Tablet(s) PO QD 01/13/2016 02/26/2017 Inactive pravastatin 20 mg tablet RxNorm: 577246 TAKE 1 TABLET DAILY 016 01/13/2016 Inactive pravastatin 40 mg tablet RxNorm: 939594 1 Tablet(s) PO QD 03/31/2015 03/31/2015 Inactive pravastatin 20 mg tablet RxNorm: 497184 1 Tablet(s) PO QD 03/31/2015 06/28/2015 Inactive doxycycline hyclate 100 mg capsule RxNorm: 0209716 1 Capsule(s) PO BID 03/31/2015 04/09/2015 Inactive mupirocin 2 % topical ointment RxNorm: 158212 Apply TOP BID to affected lesions 03/31/2015 08/01/2017 Inactive pravastatin 40 mg tablet RxNorm: 388423 1 Tablet(s) PO QD 01/08/2015 03/30/2015 Inactive lisinopril 20 mg tablet RxNorm: 471093 1 Tablet(s) PO QD for bl ood pressure 01/07/2015 12/31/2015 Inactive allopurinol 100 mg tablet RxNorm: 531299 1 Tablet(s) PO QD 01/08/20 15 04/10/2016 Inactive ciprofloxacin 500 mg tablet RxNorm: 887775 1 Tablet(s) PO BID 01/0701/13/2015 Inactive doxycycline hyclate 100 mg capsule RxNorm: 5454932 1 Capsule(s) PO BID 04/15/2014 04/24/2014 Inactive fluoxetine 10 mg capsule RxNorm: 071884 1 Capsule(s) PO QAM 014 04/14/2014 Inactive lisinopril 20 mg tablet RxNorm: 659824 1 Tablet(s) PO QD for bl ood pressure 05/02/2013 04/26/2014 Inactive Cipro 500 mg tablet RxNorm: 786973 1 Tablet(s) PO BID 01/02/201312/10 Inactive Cipro 500 mg tablet RxNorm: 347784 1 Tablet(s) PO BID 01/02/201304/2012 Inactive doxycycline hyclate 100 mg Cap RxNorm: 233857 1 Capsule(s) PO BID 0 10/10/2011 10/19/2011 Inactive Culturelle 10 billion cell Cap RxNorm: 523156 1 Capsule(s) PO BID 0 08/12/2011 09/10/2011 Inactive Colcrys 0.6 mg Tab RxNorm: 059690 1 Tablet(s) PO BID 08/04/201111/30 Inactive allopurinol 100 mg Tab RxNorm: 879407 1 Tablet(s) PO BID 07/13/2011 0 08/03/2011 Inactive clotrimazole-betamethasone 1 %-0.05 % Topical Cream RxNorm: 918053 1 Application TOP BID 06/10/2011 06/23/2011 Inactive clotrimazole-betamethasone 1 %-0.05 % Topical Cream RxNorm: 185315 1 Application TOP BID 05/24/2011 06/06/2011 Inactive Colcrys 0.6 mg Tab RxNorm: 060399 1 Tablet(s) PO BID 05/24/201108/02 Inactive cefdinir 300 mg Cap RxNorm: 210172 1 Capsule(s) PO BID 04/15/2011 Inactive Daypro 600 mg Tab RxNorm: 491083 1 Tablet(s) PO BID 12/15/20102010 Inactive for pain Medrol (Nicholas) 4 mg Tabs in a Dose Pack RxNorm: 051882 Tablet(s) PO 0 12/09/2010 12/15/2010 Inactive as directed Colcrys 0.6 mg Tab RxNorm: 293789 1 Tablet(s) PO BID 12/06/201001/04 Inactive lisinopril-hydrochlorothiazide 20 mg-12.5 mg Tab RxNorm: 197 886 1 Tablet(s) PO QAM 12/02/2010 01/30/2011 Inactive ranitidine 150 mg tablet RxNorm: 2246736 1 Tablet(s) PO BID Pt will phone before filing this script. 04/14/2010 05/13/2010 Inactive allopurinol 100 mg Tab RxNorm: 801228 1 Tablet(s) PO BID 09/16/2009 0 11/14/2009 Inactive lisinopril-hydrochlorothiazide 20 mg-12.5 mg Tab RxNorm: 197 886 1 Tablet(s) PO QAM 06/23/2009 08/31/2009 Inactive ibuprofen 200 mg tablet RxNorm: 180168 4 Tablet(s) PO QAM No Start Da te Active Zithromax Z-Nicholas 250 mg Tab RxNorm: 042273 Tablet(s) PO as direc tenzin No Start Date 01/12/2011 Inactive Ultram Oral RxNorm: Oral No Start Date 01/01/2013 Inactive allopurinol 100 mg tablet RxNorm: 431150 1 Tablet(s) PO QD No Start Date 01/06/2015 Inactive pravastatin 40 mg tablet RxNorm: 415527 1 Tablet(s) PO QD No Start Date 01/07/2015 Inactive Naprosyn 500 mg tablet RxNorm: 124276 1 Tablet(s) PO BID No Start D ate 05/01/2013 Inactive azithromycin 250 mg tablet RxNorm: 313598 2 Tablet(s) P O QD take 2 tablets (500 mg) by oral route once daily for 1 day then 1 tablet (250 mg) by oral route once daily for 4 days No Start Date 01/12/2011 Inactive allopurinol 300 mg Tab RxNorm: 357626 1 Tablet(s) PO QD No Start Da te 01/01/2013 Inactive Colcrys 0.6 mg tablet RxNorm: 092861 1 Tablet(s) PO BID No Start Da te 05/01/2013 Inactive Medrol (Nicholas) 4 mg tablets in a dose pack RxNorm: 779227 Tablet(s) PO As Directed No Start Date 02/27/2017 Inactive hydrocodone 5 mg-acetaminophen 325 mg tablet RxNorm: 230750 1 Tablet(s) PO Q4H as needed for pain No Start Date 12/09/2013 Inactive ranitidine 150 mg Tab RxNorm: 5449990 1 Tablet(s) PO BID No Start D ate 04/13/2010 Inactive Allopurinol 100 mg Tab RxNorm: 215945 1 Tablet(s) PO BID No Start D ate 09/15/2009 Inactive coenzyme Q10 200 mg capsule RxNorm: 993401 1 Capsule(s) PO QD No St art Date 03/30/2015 Inactive Mobic 7.5 mg tablet RxNorm: 243410 1 Tablet(s) PO QD No Start Date Inactive Osteo Bi-Flex (5-Loxin) 1,500 mg-400 unit-100 mg tablet RxNo rm: 1 Tablet(s) PO BID No Start Date 03/30/2015 Inactive hydrocodone-acetaminophen 7.5 mg-325 mg Tab RxNorm: 261803 1-2 Tablet(s) PO Q4-6H No Start Date 08/03/2011 Inactive as needed for pa in Neurontin 300 mg capsule RxNorm: 312187 1 Capsule(s) PO QD No Start Date 12/09/2013 Inactive Medrol (Nicholas) 4 mg Tabs in a Dose Pack RxNorm: 899812 Tablet(s) PO N o Start Date 12/08/2010 Inactive as directed Vitamin D2 1,000 unit capsule RxNorm: 539239 1 Capsule(s) PO QD No Start Date 03/30/2015 Inactive Flexeril 10 mg Tab RxNorm: 259312 1 Tablet(s) PO TID No Start Date Inactive for spasm Medication Administered No Medication Administered data Immunizations No Immunization data Results Observation Observation Code Item Item Code Result Date S ervice Location C DIFF MOL [id number] C Diff Mol Int Negative 11/02/2018 Unk nown C Diff An [id number] C Diff Analyzer Indeterminate 9 Unknown GFR CALC 8411952 GFR Non Afr Amr >60 mL/min 11/01/2018 Un known GFR CALC 1123635 GFR Afr Amr >60 mL/min 11/01/[address] LDL [id number] HDL CHOLESTEROL 46 mg/dL 11/01/[address] LDL 6256710 Cholesterol 198 mg/dL 11/01/[address] LDL 6277174 Triglyceride 104 mg/dL 11/01/[address] LDL 8165619 LDL Direct 158 mg/dL 11/01/[address] LDL 6178730 NON-HDL Chol 152 mg/dL 11/01/2018 Unkno wn THYROID STIMULATING HORMONE 18457 TSH 1.276 uIU/mL 11/01/2018 Unknown COMPREHENSIVE METABOLIC 67027 AST 22 U/L 2018 Unknown COMPREHENSIVE METABOLIC 68703 ALT 17 U/L 2018 Unknown COMPREHENSIVE METABOLIC 58184 BUN 16 mg/dL 2018 Unknown COMPREHENSIVE METABOLIC 06649 ALBUMIN 4.3 g/dL 2018 Unknown COMPREHENSIVE METABOLIC 29842 CHLORIDE 103 mmol/L 11/01 Unknown COMPREHENSIVE METABOLIC 31433 Bili Total 0.9 mg/dL 11/01 Unknown COMPREHENSIVE METABOLIC 03647 ALK PHOS 62 U/L 2018 Unknown COMPREHENSIVE METABOLIC 44565 SODIUM 138 mmol/L 11/01 Unknown COMPREHENSIVE METABOLIC 85917 CREATININE 0.87 mg/dL 10/09 Unknown COMPREHENSIVE METABOLIC 07253 CALCIUM 9.2 mg/dL 2018 Unknown COMPREHENSIVE METABOLIC 92039 POTASSIUM 4.1 mmol/L 11/01 Unknown COMPREHENSIVE METABOLIC 18404 Total Protein 7.2 g/dL Unknown COMPREHENSIVE METABOLIC 34853 Glucose 81 mg/dL 2018 Unknown COMPREHENSIVE METABOLIC 96866 Bicarbonate 18 mmol/L 10/09 Unknown COMPREHENSIVE METABOLIC 37315 AGAP 17 mmol/L 2018 Unknown COMPLETE BLOOD COUNT 3931570 WBC 8.8 10e9/L 11/02/19 19 Unknown COMPLETE BLOOD COUNT 1691106 RBC 4.54 10e12/L 2018 Unknown COMPLETE BLOOD COUNT 3200711 HEMOGLOBIN 14.4 g/dL 11/02/19 19 Unknown COMPLETE BLOOD COUNT 2057515 HEMATOCRIT 44.0 % 11/02/19 19 Unknown COMPLETE BLOOD COUNT 5404484 MCV 96.9 fL 9 Unknown COMPLETE BLOOD COUNT 0340494 MCH 31.7 pg 9 Unknown COMPLETE BLOOD COUNT 4792622 MCHC 32.7 g/dL 9 Unknown COMPLETE BLOOD COUNT 0535385 PLATELET COUNT 239 10e9/L Unknown COMPLETE BLOOD COUNT 6710725 Mean Plt Volume 10.5 fL Unknown COMPLETE BLOOD COUNT 6730910 NRBC Absolute 0.00 10e9/L Unknown COMPLETE BLOOD COUNT 5018284 Neut Auto 65.2 % 9 Unknown COMPLETE BLOOD COUNT 0438547 NRBC/100 WBC 0.0 2018 Unknown COMPLETE BLOOD COUNT 9912593 Lymph Auto 23.1 % 11/02/19 19 Unknown COMPLETE BLOOD COUNT 9184494 [place] Auto 9.5 % 9 Unknown COMPLETE BLOOD COUNT 2781398 RDW 12.2 % 9 Unknown COMPLETE BLOOD COUNT 0005023 Eos Auto 1.7 % 9 Unknown COMPLETE BLOOD COUNT 0324771 Baso Auto 0.3 % 9 Unknown COMPLETE BLOOD COUNT 2181229 Neutrophil Abs 5.73 10e9/L Unknown COMPLETE BLOOD COUNT 9808343 Imm Gran Auto 0.2 % 11/01 Unknown COMPLETE BLOOD COUNT [id number] Lymphocyte Abs 2.03 10e9/L Unknown COMPLETE BLOOD COUNT 1968082 Monocyte Abs 0.84 10e9/L 10/09 Unknown COMPLETE BLOOD COUNT 3184470 Eosinophil Abs 0.15 10e9/L Unknown COMPLETE BLOOD COUNT 8705168 RDW-SD 43.4 fL 9 Unknown COMPLETE BLOOD COUNT 1071297 Basophil Abs 0.03 10e9/L 10/09 Unknown COMPLETE BLOOD COUNT [id number] Imm Gran Abs 0.02 10e9/L 10/09 Unknown COMPREHENSIVE METABOLIC 28698 AST 17 U/L 2016 Unknown COMPREHENSIVE METABOLIC 36739 ALT 16 U/L 2016 Unknown COMPREHENSIVE METABOLIC 56870 BUN 15 mg/dL 2016 Unknown COMPREHENSIVE METABOLIC 07758 ALBUMIN 4.4 g/dL 2016 Unknown COMPREHENSIVE METABOLIC 72429 CHLORIDE 104 mmol/L 03/29 Unknown COMPREHENSIVE METABOLIC 00779 Bili Total 0.5 mg/dL 03/29 Unknown COMPREHENSIVE METABOLIC 20949 ALK PHOS 56 U/L 2016 Unknown COMPREHENSIVE METABOLIC 35173 SODIUM 139 mmol/L 03/29 Unknown COMPREHENSIVE METABOLIC 89494 CREATININE 0.88 mg/dL 03/11 Unknown COMPREHENSIVE METABOLIC 65032 CALCIUM 9.8 mg/dL 2016 Unknown COMPREHENSIVE METABOLIC 36515 POTASSIUM 4.2 mmol/L 03/29 Unknown COMPREHENSIVE METABOLIC 37091 Total Protein 6.8 g/dL Unknown COMPREHENSIVE METABOLIC 63860 Glucose 100 mg/dL 2016 Unknown COMPREHENSIVE METABOLIC 12435 Bicarbonate 30 mmol/L 03/11 Unknown COMPREHENSIVE METABOLIC 68278 AGAP 5 mmol/L 2016 Unknown THYROID STIMULATING HORMONE 84935 TSH 1.077 uIU/mL 03/29/2017 Unknown URIC ACID 45174 URIC ACID 5.2 mg/dL 03/29/2017 Unknown FREE T4 65952 T4 Free 1.04 ng/dL 03/29/2017 Unknown ERYTHROCYTE SEDIMENTATION RATE 42367 Sed Rate 21 mm/hr 03/29/2017 Unknown COMPLETE BLOOD COUNT 3096365 WBC 5.9 10e9/L 03/29/20 17 Unknown COMPLETE BLOOD COUNT 2214414 RBC 4.52 10e12/L 2016 Unknown COMPLETE BLOOD COUNT 2637439 HEMOGLOBIN 14.6 g/dL 03/29/20 17 Unknown COMPLETE BLOOD COUNT 6216261 HEMATOCRIT 44.7 % 03/29/20 17 Unknown COMPLETE BLOOD COUNT 1963326 MCV 98.9 fL 7 Unknown COMPLETE BLOOD COUNT 5751514 MCH 32.3 pg 7 Unknown COMPLETE BLOOD COUNT 6533671 MCHC 32.7 g/dL 7 Unknown COMPLETE BLOOD COUNT 3631031 PLATELET COUNT 262 10e9/L Unknown COMPLETE BLOOD COUNT 8075835 Mean Plt Volume 10.1 fL Unknown COMPLETE BLOOD COUNT 5787351 Neut Auto 44.2 % 7 Unknown COMPLETE BLOOD COUNT 5691843 Lymph Auto 41.5 % 03/29/20 17 Unknown COMPLETE BLOOD COUNT 4079410 [place] Auto 11.2 % 7 Unknown COMPLETE BLOOD COUNT 3283834 RDW 12.3 % 7 Unknown COMPLETE BLOOD COUNT 8517398 Eos Auto 2.6 % 7 Unknown COMPLETE BLOOD COUNT 2484947 Baso Auto 0.5 % 7 Unknown COMPLETE BLOOD COUNT 6758425 Neutrophil Abs 2.61 10e9/L Unknown COMPLETE BLOOD COUNT 5441348 Lymphocyte Abs 2.45 10e9/L Unknown COMPLETE BLOOD COUNT 6695262 Monocyte Abs 0.66 10e9/L 03/11 Unknown COMPLETE BLOOD COUNT 5501036 Eosinophil Abs 0.15 10e9/L Unknown COMPLETE BLOOD COUNT 6714092 RDW-SD 43.7 fL 7 Unknown COMPLETE BLOOD COUNT 8114114 Basophil Abs 0.03 10e9/L 03/11 Unknown LIPID GROUP 42821 Cholesterol 248 mg/dL 03/29/2017 Unkno wn LIPID GROUP 36822 Triglyceride 87 mg/dL 03/29/2017 Unkn own LIPID GROUP 35887 HDL CHOLESTEROL 49 mg/dL 03/29/2017 U nknown LIPID GROUP 59541 Chol/HDL Ratio 5.06 ratio 03/29/2017 U nknown LIPID GROUP 59274 NON-HDL Chol 199 mg/dL 03/29/2017 Unkn own LIPID GROUP 43361 LDL Cholesterol 182 mg/dL 03/29/2017 U nknown GFR CALC 2858663 GFR Non Afr Amr >60 mL/min 03/29/2017 Un known GFR CALC 7716798 GFR Afr Amr >60 mL/min 03/29/2017 Unknow n HIV AG/AB 4442707 HIV Ag/Ab Non-Reactive 03/15/2017 Unkno wn VIRAL HEPATITIS PROFILE #2 14841 Hep A IgM Non-Reactive 03/15/2017 Unknown VIRAL HEPATITIS PROFILE #2 58751 Hep B Core IgM Non-Reac tive 03/15/2017 Unknown VIRAL HEPATITIS PROFILE #2 10198 Hepatitis C Ab Non-Reac tive 03/15/2017 Unknown VIRAL HEPATITIS PROFILE #2 15829 Hep Bs Ag Non-Reactive 03/15/2017 Unknown COMPREHENSIVE METABOLIC 80879 AST 23 U/L 2014 Unknown COMPREHENSIVE METABOLIC 99837 ALT 21 IU/L 2014 Unknown COMPREHENSIVE METABOLIC 96813 BUN 13 MG/DL 2014 Unknown COMPREHENSIVE METABOLIC 36210 ALBUMIN 4.3 GM/DL 2014 Unknown COMPREHENSIVE METABOLIC 71893 CHLORIDE 105 MMOL/L 01/07 Unknown COMPREHENSIVE METABOLIC 30368 BILI TOT 0.7 MG/DL 2014 Unknown COMPREHENSIVE METABOLIC 15179 ALK PHOS 51 U/L 2014 Unknown COMPREHENSIVE METABOLIC 66976 SODIUM 139 MMOL/L 01/07 Unknown COMPREHENSIVE METABOLIC 25051 CREATININE 0.85 MG/DL 12/11 Unknown COMPREHENSIVE METABOLIC 18029 CALCIUM 9.5 MG/DL 2014 Unknown COMPREHENSIVE METABOLIC 88102 POTASSIUM 4.4 MMOL/L 01/07 Unknown COMPREHENSIVE METABOLIC 60428 PROT TOT 6.7 GM/DL 2014 Unknown COMPREHENSIVE METABOLIC 42717 Glucose 100 MG/DL 2014 Unknown COMPREHENSIVE METABOLIC 58656 BICARB 27 MMOL/L 2014 Unknown COMPREHENSIVE METABOLIC 44527 ANION GAP 7 MEQ/L 2014 Unknown THYROID STIMULATING HORMONE 59108 TSH 0.900 uIU/ML 01/07/2015 Unknown COMPLETE BLOOD COUNT 2476047 WBC 4.9 10e9/L 01/08/20 15 Unknown COMPLETE BLOOD COUNT 9008326 RBC 4.71 10e12/L 2014 Unknown COMPLETE BLOOD COUNT 9214211 HGB 15.3 g/dL 5 Unknown COMPLETE BLOOD COUNT 3316113 HCT DET 46.1 % 5 Unknown COMPLETE BLOOD COUNT 9077852 MCV 97.9 fL 5 Unknown COMPLETE BLOOD COUNT 8625546 MCH 32.5 pg 5 Unknown COMPLETE BLOOD COUNT 1780404 MCHC 33.2 g/dL 5 Unknown COMPLETE BLOOD COUNT 1122902 PLT 227 10e9/L 01/08/20 15 Unknown COMPLETE BLOOD COUNT 4321942 MPV 10.9 fL 5 Unknown COMPLETE BLOOD COUNT 7546421 VERON[place]QUE % 53.0 % 5 Unknown COMPLETE BLOOD COUNT 5298096 LY % 35.8 % 5 Unknown COMPLETE BLOOD COUNT 5044742 MON % 8.6 % 5 Unknown COMPLETE BLOOD COUNT 8318876 EOS % 2.2 % 5 Unknown COMPLETE BLOOD COUNT 1509111 BASO % 0.4 % 5 Unknown COMPLETE BLOOD COUNT 0269677 RDW 12.9 % 5 Unknown COMPLETE BLOOD COUNT 8001369 ABS VERONIQUE 2.60 10e9/L 015 Unknown COMPLETE BLOOD COUNT 0296202 ABS LYMPH 1.75 10e9/L 015 Unknown COMPLETE BLOOD COUNT 2778760 ABS MONO 0.42 10e9/L 015 Unknown COMPLETE BLOOD COUNT 3312151 ABS EOS 0.11 10e9/L 015 Unknown COMPLETE BLOOD COUNT 1295460 ABS BASO 0.02 10e9/L 015 Unknown COMPLETE BLOOD COUNT 0579700 RDW-SD 45.7 fL 5 Unknown URIC ACID 19900 URIC ACID 6.7 MG/DL 01/07/2015 Unknown LIPID GROUP 48477 HDL TEST 52 MG/DL 01/07/2015 Unknown LIPID GROUP 44694 TRIG 158 MG/DL 01/07/2015 Unknown LIPID GROUP 74499 TEST LDL 157 MG/DL 01/07/2015 Unknown LIPID GROUP 01566 CHOL 241 MG/DL 01/07/2015 Unknown LIPID GROUP 78836 RCHOL/HDL 4.63 RATIO 01/07/2015 Unknow n LIPID GROUP 53583 NON-HDL CH 189 MG/DL 01/07/2015 Unknow n GFR CALC 8821632 GFR AA >60 ML/MIN 01/07/2015 Unknown GFR CALC 7326073 GFR NON-AA >60 ML/MIN 01/07/2015 Unknown PSA EQUIMOLAR JONATAN 48488 PSA EQ 2.18 NG/ML 5 Unknown FREE T4 33915 FREE T4 1.04 NG/DL 01/07/2015 Unknown GFR CALC 5774227 GFR AA >60 ML/MIN 12/11/2013 Unknown GFR CALC 4477890 GFR NON-AA >60 ML/MIN 12/11/2013 Unknown LIPID GROUP 78831 HDL TEST 54 MG/DL 12/11/2013 Unknown LIPID GROUP 60380 TRIG 81 MG/DL 12/11/2013 Unknown LIPID GROUP 83345 TEST LDL 185 MG/DL 12/11/2013 Unknown LIPID GROUP 18182 CHOL 255 MG/DL 12/11/2013 Unknown LIPID GROUP 87843 RCHOL/HDL 4.72 RATIO 12/11/2013 Unknow n LIPID GROUP 16824 NON-HDL CH 201 MG/DL 12/11/2013 Unknow n URIC ACID 79146 URIC ACID 7.1 MG/DL 12/11/2013 Unknown PSA EQUIMOLAR JONATAN 49944 PSA EQ 3.80 NG/ML 4 Unknown COMPLETE BLOOD COUNT 0073834 WBC 5.9 10e9/L 12/12/19 14 Unknown COMPLETE BLOOD COUNT 1604915 RBC 4.40 10e12/L 2013 Unknown COMPLETE BLOOD COUNT 1870462 HGB 14.5 g/dL 4 Unknown COMPLETE BLOOD COUNT 7444166 HCT DET 43.6 % 4 Unknown COMPLETE BLOOD COUNT 8678243 MCV 99.1 fL 4 Unknown COMPLETE BLOOD COUNT 5592033 MCH 33.0 pg 4 Unknown COMPLETE BLOOD COUNT 5454941 MCHC 33.3 g/dL 4 Unknown COMPLETE BLOOD COUNT 4409783 PLT 289 10e9/L 12/12/19 14 Unknown COMPLETE BLOOD COUNT 6078935 MPV 10.2 fL 4 Unknown COMPLETE BLOOD COUNT 8163702 [place] % 47.9 % 4 Unknown COMPLETE BLOOD COUNT 0735090 LY % 40.6 % 4 Unknown COMPLETE BLOOD COUNT 0542734 MON % 8.8 % 4 Unknown COMPLETE BLOOD COUNT 6114920 EOS % 2.2 % 4 Unknown COMPLETE BLOOD COUNT 6205453 BASO % 0.5 % 4 Unknown COMPLETE BLOOD COUNT 1148752 RDW 12.9 % 4 Unknown COMPLETE BLOOD COUNT 2381708 ABS VERONIQUE 2.83 10e9/L 014 Unknown COMPLETE BLOOD COUNT 1050983 ABS LYMPH 2.40 10e9/L 014 Unknown COMPLETE BLOOD COUNT 8178196 ABS MONO 0.52 10e9/L 014 Unknown COMPLETE BLOOD COUNT 2921569 ABS EOS 0.13 10e9/L 014 Unknown COMPLETE BLOOD COUNT 0821992 ABS BASO 0.03 10e9/L 014 Unknown COMPLETE BLOOD COUNT 8730718 RDW-SD 45.7 fL 4 Unknown THYROID STIMULATING HORMONE 37783 TSH 1.013 uIU/ML 12/11/2013 Unknown COMPREHENSIVE METABOLIC 32466 AST 20 U/L 2013 Unknown COMPREHENSIVE METABOLIC 02941 ALT 16 IU/L 2013 Unknown COMPREHENSIVE METABOLIC 85945 BUN 17 MG/DL 2013 Unknown COMPREHENSIVE METABOLIC 41797 ALBUMIN 4.6 GM/DL 2013 Unknown COMPREHENSIVE METABOLIC 31770 CHLORIDE 107 MMOL/L 12/11 Unknown COMPREHENSIVE METABOLIC 79118 BILI TOT 0.7 MG/DL 2013 Unknown COMPREHENSIVE METABOLIC 79488 ALK PHOS 53 U/L 2013 Unknown COMPREHENSIVE METABOLIC 26917 SODIUM 140 MMOL/L 12/11 Unknown COMPREHENSIVE METABOLIC 41701 CREATININE 0.84 MG/DL 06/2013 Unknown COMPREHENSIVE METABOLIC 83678 CALCIUM 9.7 MG/DL 2013 Unknown COMPREHENSIVE METABOLIC 20920 POTASSIUM 4.6 MMOL/L 12/11 Unknown COMPREHENSIVE METABOLIC 89896 PROT TOT 6.9 GM/DL 2013 Unknown COMPREHENSIVE METABOLIC 63219 Glucose 97 MG/DL 2013 Unknown COMPREHENSIVE METABOLIC 10656 BICARB 25 MMOL/L 2013 Unknown COMPREHENSIVE METABOLIC 21987 ANION GAP 8 MEQ/L 2013 Unknown FREE T4 75921 FREE T4 1.11 NG/DL 12/11/2013 Unknown ASSAY OF CREATININE 98007 CREATININE 0.98 MG/DL 09/15/19 12 Unknown URIC ACID 91379 URIC ACID 4.9 MG/DL 09/15/2011 Unknown GFR CALC 0880535 GFR AA >60 ML/MIN 09/15/2011 Unknown GFR CALC 3749567 GFR NON-AA >60 ML/MIN 09/15/2011 Unknown THYROID STIMULATING HORMONE 36624 TSH 1.687 uIU/ML 08/01/2011 Unknown FREE T4 63010 FREE T4 0.96 NG/DL 08/01/2011 Unknown SJOGRENS 2810314 SJOGRN A <20 EU/ML 08/01/2011 Unknown SJOGRENS 6832471 SJOGRN B <20 EU/ML 08/01/2011 Unknown SJOGRENS 0321635 NONHIS INT SEE BELO 08/01/2011 Unknown THYRO PERX 5431965 THYRO PERX 175.34 UNITS 07/30/2011 Unkn own DNA AB 3639345 DNA AB 32 IU/ML 07/29/2011 Unknown TITER WENDI 1692178 TITR WENDI 1:160 07/29/2011 Unknown TITER WENDI 7388554 PATTERN NUCLEOLR 07/29/2011 Unknown ANTINUCLEAR ANTIBODY SCREEN 05890 WENDI SCR POSITIVE Unknown COMPREHENSIVE METABOLIC 94168 AST 23 U/L 2011 Unknown COMPREHENSIVE METABOLIC 70483 ALT 26 IU/L 2011 Unknown COMPREHENSIVE METABOLIC 18256 BUN 18 MG/DL 2011 Unknown COMPREHENSIVE METABOLIC 20926 ALBUMIN 4.6 GM/DL 2011 Unknown COMPREHENSIVE METABOLIC 39633 CHLORIDE 105 MMOL/L 07/27 Unknown COMPREHENSIVE METABOLIC 33369 BILI TOT 0.5 MG/DL 2011 Unknown COMPREHENSIVE METABOLIC 11500 ALK PHOS 63 U/L 2011 Unknown COMPREHENSIVE METABOLIC 62377 SODIUM 138 MMOL/L 07/27 Unknown COMPREHENSIVE METABOLIC 42924 CREATININE 0.92 MG/DL 07/09 Unknown COMPREHENSIVE METABOLIC 44479 CALCIUM 9.4 MG/DL 2011 Unknown COMPREHENSIVE METABOLIC 37748 POTASSIUM 3.9 MMOL/L 07/27 Unknown COMPREHENSIVE METABOLIC 79198 PROT TOT 6.7 GM/DL 2011 Unknown COMPREHENSIVE METABOLIC 14529 Glucose 101 MG/DL 2011 Unknown COMPREHENSIVE METABOLIC 01253 BICARB 24 MMOL/L 2011 Unknown COMPREHENSIVE METABOLIC 54636 ANION GAP 9 MEQ/L 2011 Unknown GFR CALC 8985233 GFR AA >60 ML/MIN 07/28/2011 Unknown GFR CALC 2193610 GFR NON-AA >60 ML/MIN 07/28/2011 Unknown ERYTHROCYTE SEDIMENTATION RATE 25318 ESR 2 MM/HR 07/28/2011 Unknown URIC ACID 99950 URIC ACID 5.8 MG/DL 07/28/2011 Unknown C-REACTIVE PROTEIN (CRP) QUANT 28491 CRP 0.2 MG/DL 07/28/2011 Unknown TITER WENDI [id number] TITR WENDI 1:160 05/26/2011 Unknown TITER WENDI 4874442 PATTERN NUCLEOLR 05/26/2011 Unknown RA FACTOR 82757 RA FACTOR <20.0 IU/ML 05/26/2011 Unknown ANTINUCLEAR ANTIBODY SCREEN 35055 WENDI SCR POSITIVE Unknown URIC ACID 08323 URIC ACID 8.7 MG/DL 05/25/2011 Unknown PSA EQUIMOLAR JONATAN 94256 PSA EQ 2.79 NG/ML 2 Unknown LIPID GROUP 57185 HDL TEST 47 MG/DL 05/25/2011 Unknown LIPID GROUP 52637 TRIG 198 MG/DL 05/25/2011 Unknown LIPID GROUP 78695 TEST LDL 180 MG/DL 05/25/2011 Unknown LIPID GROUP 65925 CHOL 267 MG/DL 05/25/2011 Unknown LIPID GROUP 56663 RCHOL/HDL 5.68 RATIO 05/25/2011 Unknow n COMPREHENSIVE METABOLIC 29859 AST 21 U/L 2011 Unknown COMPREHENSIVE METABOLIC 95281 ALT 21 IU/L 2011 Unknown COMPREHENSIVE METABOLIC 50613 BUN 16 MG/DL 2011 Unknown COMPREHENSIVE METABOLIC 80265 ALBUMIN 4.4 GM/DL 2011 Unknown COMPREHENSIVE METABOLIC 74492 CHLORIDE 105 MMOL/L 05/25 Unknown COMPREHENSIVE METABOLIC 52364 BILI TOT 0.7 MG/DL 2011 Unknown COMPREHENSIVE METABOLIC 17887 ALK PHOS 60 U/L 2011 Unknown COMPREHENSIVE METABOLIC 44212 SODIUM 139 MMOL/L 05/25 Unknown COMPREHENSIVE METABOLIC 44400 CREATININE 0.92 MG/DL 05/11 Unknown COMPREHENSIVE METABOLIC 37429 CALCIUM 9.4 MG/DL 2011 Unknown COMPREHENSIVE METABOLIC 05297 POTASSIUM 4.1 MMOL/L 05/25 Unknown COMPREHENSIVE METABOLIC 90100 PROT TOT 7.0 GM/DL 2011 Unknown COMPREHENSIVE METABOLIC 12233 Glucose 108 MG/DL 2011 Unknown COMPREHENSIVE METABOLIC 56004 BICARB 25 MMOL/L 2011 Unknown COMPREHENSIVE METABOLIC 81834 ANION GAP 9 MEQ/L 2011 Unknown GFR CALC [id number] GFR AA >60 ML/MIN 05/25/2011 Unknown GFR CALC [id number] GFR NON-AA >60 ML/MIN 05/25/2011 Unknown COMPLETE BLOOD COUNT 79673 WBC 5.6 10e9/L 05/25/19 12 Unknown COMPLETE BLOOD COUNT 24175 RBC 5.01 10e12/L 2011 Unknown COMPLETE BLOOD COUNT 40662 HGB 15.8 g/dL 2 Unknown COMPLETE BLOOD COUNT 16792 HCT DET 46.1 % 2 Unknown COMPLETE BLOOD COUNT 23428 MCV 92.0 fL 2 Unknown COMPLETE BLOOD COUNT 89758 MCH 31.5 pg 2 Unknown COMPLETE BLOOD COUNT 57251 MCHC 34.3 g/dL 2 Unknown COMPLETE BLOOD COUNT 78597 PLT 246 10e9/L 05/25/19 12 Unknown COMPLETE BLOOD COUNT 37907 MPV 10.3 fL 2 Unknown COMPLETE BLOOD COUNT 33935 VERONIQUE % 47.1 % 2 Unknown COMPLETE BLOOD COUNT 85508 LY % 41.0 % 2 Unknown COMPLETE BLOOD COUNT 35157 MON % 8.9 % 2 Unknown COMPLETE BLOOD COUNT 51288 EOS % 2.5 % 2 Unknown COMPLETE BLOOD COUNT 82598 BASO % 0.5 % 2 Unknown COMPLETE BLOOD COUNT 84138 RDW 12.7 % 2 Unknown COMPLETE BLOOD COUNT 65536 ABS VERONIQUE 2.64 10e9/L 012 Unknown COMPLETE BLOOD COUNT 36503 ABS LYMPH 2.30 10e9/L 012 Unknown COMPLETE BLOOD COUNT 63905 ABS MONO 0.50 10e9/L 012 Unknown COMPLETE BLOOD COUNT 73694 ABS EOS 0.14 10e9/L 012 Unknown COMPLETE BLOOD COUNT 63937 ABS BASO 0.03 10e9/L 012 Unknown COMPLETE BLOOD COUNT 63315 RDW-SD 41.3 fL 2 Unknown COMPREHENSIVE METABOLIC 05617 AST 18 U/L 2010 Unknown COMPREHENSIVE METABOLIC 61167 ALT 14 IU/L 2010 Unknown COMPREHENSIVE METABOLIC 73200 BUN 12 MG/DL 2010 Unknown COMPREHENSIVE METABOLIC 87627 ALBUMIN 4.6 GM/DL 2010 Unknown COMPREHENSIVE METABOLIC 51026 CHLORIDE 102 MMOL/L 02/01 Unknown COMPREHENSIVE METABOLIC 52881 BILI TOT 0.6 MG/DL 2010 Unknown COMPREHENSIVE METABOLIC 36313 ALK PHOS 66 U/L 2010 Unknown COMPREHENSIVE METABOLIC 65476 SODIUM 139 MMOL/L 02/01 Unknown COMPREHENSIVE METABOLIC 21824 CREATININE 0.92 MG/DL 01/09 Unknown COMPREHENSIVE METABOLIC 04517 CALCIUM 9.8 MG/DL 2010 Unknown COMPREHENSIVE METABOLIC 14120 POTASSIUM 4.1 MMOL/L 02/01 Unknown COMPREHENSIVE METABOLIC 62601 PROT TOT 7.0 GM/DL 2010 Unknown COMPREHENSIVE METABOLIC 68594 Glucose 101 MG/DL 2010 Unknown COMPREHENSIVE METABOLIC 89933 BICARB 25 MMOL/L 2010 Unknown COMPREHENSIVE METABOLIC 79461 ANION GAP 12 MEQ/L 2010 Unknown GFR CALC [id number] GFR AA >60 ML/MIN 02/01/2011 Unknown GFR CALC [id number] GFR NON-AA >60 ML/MIN 02/01/2011 Unknown LIPID GROUP 35719 HDL TEST 44 MG/DL 02/01/2011 Unknown LIPID GROUP 42910 TRIG 157 MG/DL 02/01/2011 Unknown LIPID GROUP 22350 TEST LDL 193 MG/DL 02/01/2011 Unknown LIPID GROUP 50114 CHOL 268 MG/DL 02/01/2011 Unknown LIPID GROUP 57770 RCHOL/HDL 6.09 RATIO 02/01/2011 Unknow n FREE T4 94889 FREE T4 1.04 NG/DL 02/01/2011 Unknown COMPLETE BLOOD COUNT 82002 WBC 6.4 10e9/L 02/02/20 11 Unknown COMPLETE BLOOD COUNT 55238 RBC 4.56 10e12/L 2010 Unknown COMPLETE BLOOD COUNT 49505 HGB 14.4 g/dL 1 Unknown COMPLETE BLOOD COUNT 38971 HCT DET 43.0 % 1 Unknown COMPLETE BLOOD COUNT 69400 MCV 94.3 fL 1 Unknown COMPLETE BLOOD COUNT 85471 MCH 31.6 pg 1 Unknown COMPLETE BLOOD COUNT 59883 MCHC 33.5 g/dL 1 Unknown COMPLETE BLOOD COUNT 98421 PLT 300 10e9/L 02/02/20 11 Unknown COMPLETE BLOOD COUNT 15513 MPV 9.9 fL 1 Unknown COMPLETE BLOOD COUNT 51289 VERONIQUE % 38.5 % 1 Unknown COMPLETE BLOOD COUNT 06590 LY % 49.1 % 1 Unknown COMPLETE BLOOD COUNT 56543 MON % 10.1 % 1 Unknown COMPLETE BLOOD COUNT 41427 EOS % 1.7 % 1 Unknown COMPLETE BLOOD COUNT 70799 BASO % 0.6 % 1 Unknown COMPLETE BLOOD COUNT 37959 RDW 15.1 % 1 Unknown COMPLETE BLOOD COUNT 71634 ABS VERNOIQUE 2.46 10e9/L 011 Unknown COMPLETE BLOOD COUNT 76100 ABS LYMPH 3.14 10e9/L 011 Unknown COMPLETE BLOOD COUNT 02638 ABS MONO 0.65 10e9/L 011 Unknown COMPLETE BLOOD COUNT 84219 ABS EOS 0.11 10e9/L 011 Unknown COMPLETE BLOOD COUNT 27315 ABS BASO 0.04 10e9/L 011 Unknown COMPLETE BLOOD COUNT 41947 RDW-SD 50.6 fL 1 Unknown THYROID STIMULATING HORMONE 13335 TSH 1.128 uIU/ML 02/01/2011 Unknown PSA EQUIMOLAR JONATAN 31688 PSA EQ 3.83 NG/ML 1 Unknown VCA AB G/M [id number] EBV G VCA 3.34 12/03/2010 Unknown VCA AB G/M 4848074 EBV M VCA 0.12 12/03/2010 Unknown EB GARY AG [id number] EB GARY AG 0.47 12/03/2010 Unknown EB NUCL AB [id number] EB NUCL AB 3.72 12/03/2010 Unknown COMPLETE BLOOD COUNT 40255 WBC 8.0 10e9/L 12/03/19 11 Unknown COMPLETE BLOOD COUNT 77142 RBC 4.93 10e12/L 2010 Unknown COMPLETE BLOOD COUNT 54334 HGB 15.7 g/dL 1 Unknown COMPLETE BLOOD COUNT 32308 HCT DET 45.4 % 1 Unknown COMPLETE BLOOD COUNT 76338 MCV 92.1 fL 1 Unknown COMPLETE BLOOD COUNT 30982 MCH 31.8 pg 1 Unknown COMPLETE BLOOD COUNT 78950 MCHC 34.6 g/dL 1 Unknown COMPLETE BLOOD COUNT 52401 PLT 248 10e9/L 12/03/19 11 Unknown COMPLETE BLOOD COUNT 30710 MPV 10.4 fL 1 Unknown COMPLETE BLOOD COUNT 68018 VERONIQUE % 74.0 % 1 Unknown COMPLETE BLOOD COUNT 98300 LY % 19.6 % 1 Unknown COMPLETE BLOOD COUNT 56170 MON % 5.2 % 1 Unknown COMPLETE BLOOD COUNT 33269 EOS % 1.1 % 1 Unknown COMPLETE BLOOD COUNT 84660 BASO % 0.1 % 1 Unknown COMPLETE BLOOD COUNT 04881 RDW 12.5 % 1 Unknown COMPLETE BLOOD COUNT 08972 ABS VERONIQUE 5.92 10e9/L 011 Unknown COMPLETE BLOOD COUNT 51577 ABS LYMPH 1.57 10e9/L 011 Unknown COMPLETE BLOOD COUNT 60598 ABS MONO 0.42 10e9/L 011 Unknown COMPLETE BLOOD COUNT 58404 ABS EOS 0.09 10e9/L 011 Unknown COMPLETE BLOOD COUNT 70402 ABS BASO 0.01 10e9/L 011 Unknown COMPLETE BLOOD COUNT 47024 RDW-SD 41.1 fL 1 Unknown URIC ACID 37700 URIC ACID 9.3 MG/DL 12/02/2010 Unknown Procedures Procedure Codes Date DRAINAGE OF SKIN ABSCESS CPT-4: 81767 01/23/2019 AEROBIC WOUND CULTURE & STN CPT-4: 62350 01/23/2019 ROUTINE VENIPUNCTURE CPT-4: 09508 03/29/2017 ASSAY THYROID STIM HORMONE CPT-4: 83092 03/29/2017 ASSAY OF FREE THYROXINE CPT-4: 38462 03/29/2017 COMPREHEN METABOLIC PANEL CPT-4: 50323 03/29/2017 COMPLETE CBC W/AUTO DIFF WBC CPT-4: 94962 03/29/2017 LIPID PANEL CPT-4: 38398 03/29/2017 ASSAY OF BLOOD/URIC ACID CPT-4: 58781 03/29/2017 RBC SED RATE AUTOMATED CPT-4: 60783 03/29/2017 ROUTINE VENIPUNCTURE CPT-4: 48660 03/15/2017 ACUTE HEPATITIS PANEL CPT-4: 46104 03/15/2017 HIV-1/HIV-2 1 RESULT ANTBDY CPT-4: 26354 03/15/2017 EXC TR-EXT B9+SHASHA 0.5 CM< CPT-4: 39320 03/15/2017 EXC TR-EXT B9+SHASHA 1.1-2 CM CPT-4: 07963 03/15/2017 URINALYSIS NONAUTO W/O SCOPE CPT-4: 31229 01/07/2015 URINE CULTURE/ COLONY COUNT CPT-4: 64826 01/07/2015 ROUTINE VENIPUNCTURE CPT-4: 56050 01/07/2015 ASSAY OF FREE THYROXINE CPT-4: 33200 01/07/2015 ASSAY THYROID STIM HORMONE CPT-4: 22718 01/07/2015 COMPREHEN METABOLIC PANEL CPT-4: 60830 01/07/2015 COMPLETE CBC W/AUTO DIFF WBC CPT-4: 63690 01/07/2015 LIPID PANEL CPT-4: 23347 01/07/2015 ASSAY OF PSA TOTAL CPT-4: 57081 01/07/2015 ASSAY OF BLOOD/URIC ACID CPT-4: 49790 01/07/2015 ROUTINE VENIPUNCTURE CPT-4: 57252 12/11/2013 ASSAY OF FREE THYROXINE CPT-4: 74330 12/11/2013 ASSAY THYROID STIM HORMONE CPT-4: 23225 12/11/2013 COMPREHEN METABOLIC PANEL CPT-4: 43042 12/11/2013 COMPLETE CBC W/AUTO DIFF WBC CPT-4: 07745 12/11/2013 LIPID PANEL CPT-4: 13469 12/11/2013 ASSAY OF BLOOD/URIC ACID CPT-4: 56153 12/11/2013 ASSAY OF PSA TOTAL CPT-4: 78300 12/11/2013 URINE CULTURE/ COLONY COUNT CPT-4: 57797 01/02/2013 AEROBIC WOUND CULTURE & STN CPT-4: 82499 10/10/2011 DRAINAGE OF SKIN ABSCESS CPT-4: 61982 10/10/2011 ASSAY OF CREATININE CPT-4: 62117 09/15/2011 ASSAY OF BLOOD/URIC ACID CPT-4: 22976 09/15/2011 ROUTINE VENIPUNCTURE CPT-4: 15905 07/28/2011 ANTINUCLEAR ANTIBODIES CPT-4: 91363 07/28/2011 RBC SED RATE AUTOMATED CPT-4: 19812 07/28/2011 ASSAY OF BLOOD/URIC ACID CPT-4: 80544 07/28/2011 COMPREHEN METABOLIC PANEL CPT-4: 66529 07/28/2011 C-REACTIVE PROTEIN CPT-4: 58802 07/28/2011 THYRO PERX CPT-4: 2379893 07/28/2011 DNA AB CPT-4: 4206138 07/28/2011 SJOGRENS CPT-4: 4856489 07/28/2011 ASSAY OF FREE THYROXINE CPT-4: 51139 07/28/2011 ASSAY THYROID STIM HORMONE CPT-4: 94182 07/28/2011 ROUTINE VENIPUNCTURE CPT-4: 25198 05/25/2011 COMPREHEN METABOLIC PANEL CPT-4: 56064 05/25/2011 COMPLETE CBC W/AUTO DIFF WBC CPT-4: 73891 05/25/2011 ANTINUCLEAR ANTIBODIES CPT-4: 36615 05/25/2011 RHEUMATOID FACTOR QUANT CPT-4: 78640 05/25/2011 ASSAY OF PSA TOTAL CPT-4: 32824 05/25/2011 ASSAY OF BLOOD/URIC ACID CPT-4: 98646 05/25/2011 LIPID PANEL CPT-4: 11394 05/25/2011 ROUTINE VENIPUNCTURE CPT-4: 63268 02/01/2011 ASSAY OF FREE THYROXINE CPT-4: 26465 02/01/2011 ASSAY THYROID STIM HORMONE CPT-4: 94578 02/01/2011 COMPREHEN METABOLIC PANEL CPT-4: 76693 02/01/2011 COMPLETE CBC W/AUTO DIFF WBC CPT-4: 28702 02/01/2011 LIPID PANEL CPT-4: 05097 02/01/2011 ASSAY OF PSA TOTAL CPT-4: 74900 02/01/2011 ROUTINE VENIPUNCTURE CPT-4: 76731 12/02/2010 ASSAY OF BLOOD/URIC ACID CPT-4: 00720 12/02/2010 EB VIRUS VCA G/M + EBNA + EA CPT-4: 18007|49245 x 2|54172 COMPLETE CBC W/AUTO DIFF WBC CPT-4: 06710 12/02/2010 COMPREHEN METABOLIC PANEL CPT-4: 23444 09/14/2009 ASSAY OF BLOOD/URIC ACID CPT-4: 48032 09/14/2009 ROUTINE VENIPUNCTURE CPT-4: 34964 09/14/2009 URINALYSIS NONAUTO W/O SCOPE CPT-4: 87990 09/01/2009 Vital Signs Date Vital 05/17/2019 Blood [...] 1: 118/64 Code: 8480-6 BMI: 29.7 Code: 04806-9 Heart Rate 1: 100 bpm Height: 5'6" Respiratory Rate: 22 bpm SpO2: 95% Tempera ture: 36.7 (C) / 98.0 (F) Weight: 187 lbs 02/27/2017 Blood Pressure 1: 132/76 Code: 8480-6 BMI: 30.8 Code: 84159-8 Heart Rate 1: 96 bpm Height: 5'6" Respiratory Rate: 22 bpm SpO2: 98% Tempera ture: 36.6 (C) / 97.8 (F) Weight: 194 lbs 03/31/2015 Blood Pressure 1: 128/90 Code: 8480-6 Heart Rate 1: 88 bpm Respiratory Rate: 20 bpm Temperature: 36.9 (C) / 98.4 (F) Weight: 192 lbs 01/07/2015 Blood Pressure 1: 132/80 Code: 8480-6 BMI: 30.2 Code: 49719-5 Heart Rate 1: 78 bpm Height: 5'6" Respiratory Rate: 22 bpm Temperature: 36 .7 (C) / 98.1 (F) Weight: 190 lbs 04/15/2014 Blood Pressure 1: 136/88 Code: 8480-6 BMI: 31.0 Code: 92521-0 Heart Rate 1: 84 bpm Height: 5'6" Respiratory Rate: 20 bpm Temperature: 36 .1 (C) / 97.0 (F) Weight: 192 lbs 12/10/2013 Blood Pressure 1: 142/90 Code: 8480-6 BMI: 29.1 Code: 25038-0 Heart Rate 1: 72 bpm Height: 5'7" Respiratory Rate: 20 bpm Temperature: 36 .6 (C) / 97.8 (F) Weight: 186 lbs 05/02/2013 Blood Pressure 1: 146/96 Code: 8480-6 BMI: 30.5 Code: 28651-5 Heart Rate 1: 88 bpm Height: 5'7" Respiratory Rate: 20 bpm Temperature: 37 .0 (C) / 98.6 (F) Weight: 195 lbs 01/02/2013 Blood Pressure 1: 132/84 Code: 8480-6 BMI: 30.2 Code: 09359-7 Heart Rate 1: 80 bpm Height: 5'7" Respiratory Rate: 20 bpm Temperature: 36 .9 (C) / 98.4 (F) Weight: 193 lbs 10/10/2011 Blood Pressure 1: 122/68 Code: 8480-6 BMI: 35.7 Code: 44707-1 Heart Rate 1: 84 bpm Height: 5'2" Temperature: 36.9 (C) / 98.5 (F) Weight: 195 lbs 08/12/2011 Blood Pressure 1: 110/80 Code: 8480-6 BMI: 36.9 Code: 54268-2 Heart Rate 1: 80 bpm Height: 5'2" Temperature: 36.4 (C) / 97.6 (F) Weight: 202 lbs 08/04/2011 Blood Pressure 1: 126/80 Code: 8480-6 BMI: 37.9 Code: 40671-7 Heart Rate 1: 76 bpm Height: 5'2" Respiratory Rate: 20 bpm Temperature: 37 .0 (C) / 98.6 (F) Weight: 207 lbs 05/24/2011 Blood Pressure 1: 122/82 Code: 8480-6 BMI: 37.7 Code: 39481-6 Heart Rate 1: 68 bpm Height: 5'2" Temperature: 36.7 (C) / 98.1 (F) Weight: 206 lbs 04/15/2011 Blood Pressure 1: 128/82 Code: 8480-6 BMI: 37.1 Code: 79057-6 Heart Rate 1: 68 bpm Height: 5'2" [...] 1: 106/62 Code: 8480-6 BMI: 36.8 Code: 90259-2 Heart Rate 1: 90 bpm Height: 5'2" SpO2: 94% Temperature: 36.4 (C) / 97.6 (F) Weight: 201 lbs 12/02/2010 Blood Pressure 1: 142/90 Code: 8480-6 BMI: 36.8 Code: 13824-8 Heart Rate 1: 96 bpm Height: 5'2" [...] success Encounters Encounter Performer Location Codes Date ([id number]) OFFICE/OUTPATIENT VISIT EST Diagnosis: Acute contact dermatitis[ICD10: L25.9] Diagnosis: Acute sinusitis[ICD10: J01.90] Sylvie SAINZ [employer] CPT-4: 05337 05/17/2019 ([id number]) OFFICE/OUTPATIENT VISIT EST Diagnosis: Acute gastritis without bleeding[ICD10: K29.00] Diagnosis: Essential (primary) hypertension[ICD10: I10] Diagnosis: Hyperlipidemia, unspecified[ICD10: E78.5] Azra COOK [employer] CPT-4: 88204 10/31/2018 ([id number]) OFFICE/OUTPATIENT VISIT EST Diagnosis: Acute gastritis without bleeding[ICD10: K29.00] Azra SAINZ PlumbrFrancisco [employer] CPT-4: 56409 01/18/2018 ([id number]) OFFICE/OUTPATIENT VISIT EST Diagnosis: Hyperlipidemia, unspecified[ICD10: E78.5] Diagnosis: Essential (primary) hypertension[ICD10: I10] Diagnosis: Weakness[ICD10: R53.1] Diagnosis: Sebaceous cyst[ICD10: L72.3] Diagnosis: Idiopathic gout, unspecified site[ICD10: M10.00] Sylvie BYRNE [employer] CPT-4: 79011 03/29/2017 OFFICE/OUTPATIENT VISIT EST Diagnosis: Pain in right knee[ICD10: M25.561] Azra BYRNE [facility] CPT-4: 50106 03/13/2017 OFFICE/OUTPATIENT VISIT EST Diagnosis: Pain in right leg[ICD10: M79.604] Diagnosis: Sebaceous cyst[ICD10: L72.3] Azra BYRNE [facility] CPT-4: 02346 02/27/2017 OFFICE/OUTPATIENT VISIT EST Diagnosis: Local infection of the skin and subcutaneous tissue, unspecified[ICD10: L08.9] Diagnosis: Essential (primary) hypertension[ICD10: I10] Diagnosis: Hyperlipidemia, unspecified[ICD10: E78.5] Dagmar BYRNE [facility] CPT-4: 66257 03/31/2015 ([id number]) PREV VISIT EST AGE 40-64 Diagnosis: History of chest pain[ICD9: V13.89] Diagnosis: Right flank pain[ICD9: 789.09] Diagnosis: ROUTINE MEDICAL EXAM[ICD9: V70.0] Diagnosis: HYPERTENSION[ICD9: 401.9] Diagnosis: HYPERLIPIDEMIA NEC/NOS[ICD9: 272.4] Diagnosis: Colon polyps[ICD9: 211.3] Diagnosis: HEMATURIA NOS[ICD9: 599.70] Dagmar BYRNE [facility] CPT-4: 72785 01/07/2015 OFFICE/OUTPATIENT VISIT EST Diagnosis: COUGH[ICD9: 786.2] Diagnosis: Rectal itching[ICD9: 698.0] Dagmar BYRNE [employer] [facility] CPT-4: 58420 04/15/2014 ([id number]) OFFICE/OUTPATIENT VISIT EST Diagnosis: ROUTINE MEDICAL EXAM[ICD9: V70.0] Diagnosis: GOUT[ICD9: 274.9] Diagnosis: HYPERLIPIDEMIA NEC/NOS[ICD9: 272.4] Diagnosis: HYPERTENSION[ICD9: 401.9] Sylvie SILVERIO [facility] CPT-4: 58192 12/11/2013 ([id number]) OFFICE/OUTPATIENT VISIT EST Diagnosis: Shingles[ICD9: 053.9] Sylvie BYRNE [facility] CPT-4: 78650 12/10/2013 ([id number]) OFFICE/OUTPATIENT VISIT EST Diagnosis: HYPERTENSION[ICD9: 401.9] Diagnosis: Colon polyps[ICD9: 211.3] Diagnosis: Stress reaction[ICD9: 308.9] Syvlie BYRNE [facility] CPT-4: 39688 05/02/2013 ([id number]) OFFICE/OUTPATIENT VISIT EST Diagnosis: URINARY TRACT INFECTION[ICD9: 599.0] Sylvie ChapaFrancisco AGAPITO [facility] CPT-4: 44033 01/02/2013 OFFICE/OUTPATIENT VISIT EST Diagnosis: CELLULITIS OF TRUNK[ICD9: 682.2] Diagnosis: SPRAIN SHOULDER/ARM[ICD9: 840.9] Liza Ragsdale SYLVIE BYRNE [facility] CPT-4: 99646 10/10/2011 ([id number]) OFFICE/OUTPATIENT VISIT EST Diagnosis: GOUT[ICD9: 274.9] Sylvie BYRNE [facility] CPT-4: 83888 09/15/2011 OFFICE/OUTPATIENT VISIT EST Diagnosis: DIARRHEA[ICD9: 787.91] Sylvie WILSONLINE SammiFrancisco HUONG Cagle [facility] CPT-4: 72839 08/12/2011 ([id number]) OFFICE/OUTPATIENT VISIT EST Diagnosis: GOUT[ICD9: 274.9] Diagnosis: Positive WENDI (antinuclear antibody)[ICD9: 795.79] Sylvie BYRNE [facility] CPT-4: 66418 08/04/2011 OFFICE/OUTPATIENT VISIT EST Diagnosis: Rash[ICD9: 782.1] Diagnosis: Joint pain[ICD9: 719.40] Diagnosis: Hyperlipidemia[ICD9: 272.4] Sylvie ChapaFrancisco O RENDER DO [facility] CPT-4: 92410 05/24/2011 OFFICE/OUTPATIENT VISIT EST Diagnosis: PHARYNGITIS, ACUTE[ICD9: 462] Diagnosis: COUGH[ICD9: 786.2] Diagnosis: SINUSITIS, ACUTE[ICD9: 461.9] Sylvie BRYNE [facility] CPT-4: 23768 04/15/2011 OFFICE/OUTPATIENT VISIT EST Diagnosis: Clavicle fracture[ICD9: 810.00] Sylvie BYRNE [facility] CPT-4: 93862 01/13/2011 OFFICE/OUTPATIENT VISIT EST Diagnosis: Clavicle pain[ICD9: 719.41] Sylvie ChapaFrancisco Shad RENDER [facility] CPT-4: 95369 12/23/2010 OFFICE/OUTPATIENT VISIT EST Diagnosis: Arm pain[ICD9: 729.5] Diagnosis: SPASM OF MUSCLE[ICD9: 728.85] Diagnosis: Neck pain[ICD9: 723.1] Sylvie Cagle [facility] CPT-4: 81590 12/15/2010 OFFICE/OUTPATIENT VISIT EST Diagnosis: HYPERTENSION[ICD9: 401.9] Diagnosis: PHARYNGITIS, ACUTE[ICD9: 462] Diagnosis: MALAISE AND FATIGUE[ICD9: 780.79] Diagnosis: GOUT[ICD9: 274.9] Sylvie BYRNE [facility] CPT-4: 78803 12/02/2010 ([id number]) OFFICE/OUTPATIENT VISIT, EST Sylvie Byrne JUVENTINO GUICHIQUITA SammiFrancisco AGAPITO [facility] CPT-4: 94495 04/19/2010 ([id number]) OFFICE/OUTPATIENT VISIT, EST Sylvie Yvanashwini JAUREGUI GUICHIQUITA SammiFrancisco AGAPITO [facility] CPT-4: 75264 04/14/2010 ([id number]) OFFICE/OUTPATIENT VISIT, EST Sylviegriselda Santoroscarlettchris JUVENTINO GUICHIQUITA SammiFrancisco AGAPITO MOLINA [facility] CPT-4: 40193 09/01/2009 Plan of Care Planned Activity Notes Codes Status Date Visit Diagnosis Plan: Acute contact dermatitis Discuss ion: Kenalog 40mg IM now Cover with [employer] Call in 1week on how doing Medrol Dose Pack ICD-9 : 692.9 ICD-10 : L25.9 05/17/2019 Patient Education: Medrol (Nicholas)- Optimize[employer] Coupon [phone] [email or web address] Completed 05/17/2019 Visit Diagnosis Plan: Abscess of chest wall Discussion : patient has large amount of induration still noted despite recent drainage and antibiotics. dr. najera's office was called and they were able to see patient today. patient was sent over there for possible surgery. ICD-9 : 682.2 ICD-10 : L02.213 01/25/2019 Appointment: Azra Bradley [address] [place] [address] FOLLOW UP 01/25/2019 Visit Diagnosis Plan: Abscess [...] ICD-10 : L02.213 01/23/2019 Appointment: Azra Bradley [address] [place] [address] [facility] appt [facility] F[facility] SURGERY 01/23/2019 Patient Education: clindamycin HCl- Opt[employer] Coupon [phone] [email or web address] Completed 01/23/2019 Appointment: Azra Bradley [address] [place], [place] [address] CANCELED 01/16/2019 Visit Diagnosis Plan: Acute gastritis [...] ICD-10 : E78.5 10/31/2018 Appointment: Azra Bradley [address] [place], [place] [phone] ACUTE ILLNESS 10/31/2018 Patient Education: High Blood [...] ICD-10 : K29.00 01/18/2018 Appointment: Azra Bradley [address] [place], [place] [id number] ACUTE ILLNESS 01/18/2018 Patient Education: Patient Medication Summary Completed 01/18/2018 Appointment: Sylvie Byrne WPtel: [phone] [facility] US LAB 03/29/2017 Patient Education: Patient Medication [...] ICD-10 : L72.3 03/15/2017 Appointment: Azra Bradley [address] [place], [place] [phone] OFFICE SURGERY 03/15/2017 Patient Education: Patient Medication [...] ICD-10 : M25.561 03/13/2017 Appointment: Azra Bradley [address] [place] [address] ACUTE ILLNESS 03/13/2017 Patient Education: Patient Medication Summary Completed 03/13/2017 Care Plan: X-RAY EXAM OF KNEE 1 OR 2 ATUL [place] : 53754-6 Pending 03/13/2017 Visit Diagnosis Plan: Pain in [...] ICD-10 : L72.3 02/27/2017 Appointment: Azra Bradley [address] [place] [address] ACUTE ILLNESS 02/27/2017 Patient Education: Patient Medication Summary Completed 02/27/2017 Appointment: Katerina Sousa WPtel: [phone] ACUTE ILLNESS 08/21/2015 Visit Plan: Has [...] back. 03/31/2015 Appointment: Dagmar Ahmadi WPtel: [phone] 03/30 Confirmed ~sl FOLLOW UP 03/31/2015 [...] - Candido 01/07/2015 Appointment: Dagmar Ahmadi WPtel: [address] [place] [address] 01/06 appointment confirmed cn Annual Well Visit 01/07/2015 Patient Education: Patient Medication Summary Completed 01/07/2015 Patient Education: [facility] - Saving Auto[employer]j - Lisinopril - 18-64 - Dynamic Portal ID Completed 01/07/2015 Appointment: Sylvie Byrne WPtel: [address] [place] [address] ACUTE ILLNESS 08/26/2014 Appointment: Dagmar Ahmadi WPtel: [address] [place] [address] ACUTE ILLNESS 04/15/2014 Patient Education: Patient Medication Summary Completed 04/15/2014 Appointment: Sylvie Byrne WPtel: [address] [place] [address] US LAB 12/11/2013 Patient Education: Patient Medication Summary Completed 12/11/2013 Visit Plan: Check CBC, CMP, TSH, Free T4 , Lipids, uric acid, PSA--pt will return in AM for fasting lab Finish acyclovir Discussed Zostavax down road 12/10/2013 Appointment: Sylvie Byrne WPtel: [address] [place] [address] 12/06 left message FOLLOW UP 12/10/2013 Patient Education: Patient Medication Summary Completed 12/10/2013 Visit Plan: Lisinopril 20mg daily Stress Reducers and trial of fluoxetine 10mg q am Proceed with colonoscopy Check fasting lab 05/02/2013 Appointment: Sylvie Byrne WPtel: [address] [place] [address] ACUTE ILLNESS 05/02/2013 Patient Education: Patient Medication Summary Completed 05/02/2013 Appointment: Sylvie Byrne WPtel: [address] [place], [place] [phone] ACUTE ILLNESS 01/02/2013 Patient Education: Patient Medication Summary Completed 01/02/2013 Appointment: Liza Ragsdale WPtel: [address] [place], [place] [phone] ACUTE ILLNESS 10/10/2011 Patient Education: Patient Medication Summary Completed 10/10/2011 Appointment: Sylvie Byrne WPtel: [address] [place], [place] [phone] US LAB 09/15/2011 Patient Education: Patient Medication [...] Will seek re-eval if symptoms worsen or belt changer the weekend. 08/12/2011 Appointment: Liza Ragsdale WPtel: [address] [place] [address] ACUTE ILLNESS 08/12/2011 Patient Education: Patient Medication Summary Completed 08/12/2011 Visit Plan: Continue increased dose of a llopurinol and daily colcrys Recheck thyroid lab, uric acid and PSA in 3mos Will hold on NSAID at this time due to history of GERD 08/04/2011 Appointment: Sylvie Byrne WPtel: [address] [place], [place] [phone] FOLLOW UP 08/04/2011 Patient Education: Patient Medication Summary Completed 08/04/2011 Appointment: Sylvie Byrne WPtel: [address] [place], [place] [phone] US LAB 07/28/2011 Patient Education: Patient Medication Summary Completed 07/28/2011 Appointment: Sylvie Byrne WPtel: [address] [place], [place] [phone] US LAB 05/25/2011 Patient Education: Patient Medication [...] at night. 05/24/2011 Appointment: Liza Ragsdale WPtel: [address] [place] [address] ACUTE ILLNESS 05/24/2011 Patient Education: Patient Medication Summary Completed 05/24/2011 Visit Plan: codeine/guif cough syrup and cefdinir are phoned to [facility]. Discussed fluids and rest. Pt. will notify if symptoms persist or worsen. 04/15/2011 Appointment: Liza Ragsdale WPtel: [address] [place] [address] ACUTE ILLNESS 04/15/2011 Patient Education: Patient Medication Summary Completed 04/15/2011 Appointment: Sylvie Byrne WPtel: [address] [place], [place] [phone] US LAB 02/01/2011 Patient Education: Patient Medication Summary Completed 02/01/2011 Visit Plan: Repeat clavicle x-ray in 6wk s Check bone density 01/13/2011 Appointment: Sylvie Byrne WPtel: [address] [place], [place] [phone] US FOLLOW UP 01/13/2011 Patient Education: Patient Medication Summary Completed 01/13/2011 Visit Plan: Check right clavicle and alda ulder x-ray Continue Vimovo and flexeril 12/23/2010 Appointment: Sylvie Byrne WPtel: [address] [place], [place] [phone] US FOLLOW UP 12/23/2010 Patient Education: Patient Medication Summary Completed 12/23/2010 Appointment: Sylvie Byrne WPtel: [address] [place], [place] [phone] ER Follow UP 12/15/2010 Patient Education: Patient [...] BP check. 12/02/2010 Appointment: Liza Ragsdale WPtel: [address] [place] [address] ACUTE ILLNESS 12/02/2010 Patient Education: Patient Medication Summary Completed 12/02/2010 Care Plan: ASSAY OF BLOOD/URIC ACID Pendi ng 12/02/2010 Care Plan: VCA AB G/M Pending 2010 Care Plan: EB GARY AG Pending 2010 Care Plan: EB NUCL AB Pending 2010 Appointment: Sylvie Byrne WPtel: [address] [place] [address] FOLLOW UP 11/18/2010 Visit Plan: benadryl 25 mg tab QHS. 12.5 mg tab every 8 hrs during the day. Pt. will notify if symptoms worsen. No facial edema present. 04/19/2010 Appointment: Liza Ragsdale WPtel: [address] [place], [place] [phone] FOLLOW UP 04/19/2010 Patient Education: Patient Medication [...] no improvement. 04/14/2010 Appointment: Liza Ragsdale WPtel: [address] [place], [place] [phone] ACUTE ILLNESS 04/14/2010 Patient Education: Patient Medication Summary Completed 04/14/2010 Appointment: Liza Ragsdale WPtel: [address] [place], [place] [phone] ACUTE ILLNESS 03/12/2010 Appointment: Sylvie Byrne WPtel: [address] [place], [place] [phone] US LAB 09/14/2009 Patient Education: Patient Medication Summary Completed 09/14/2009 Appointment: Sylvie Byrne WPtel: [address] [place], [place] [phone] ACUTE ILLNESS 09/01/2009 Patient Education: Patient Medication [...] 100 mg Ciprofloxacin 500 mg PO bid [facility] appt[facility] for follow-up [facility] - [place] . Check CBC, CMP, TSH, Free T4, [...] seek re- eval if symptoms worsen or belt changer the weekend. . Continue increased dose [...] cough syrup and cefdinir are phoned to [facility]. Discussed fluids and rest. Pt. will [...]
--- OUTSIDE RECORDS SUMMARY | 2019-10-17 10:40 | XMS REPORT | Continuity of Care Document ---
Author Organization Unknown Address Unknown Phone Unavailable Allergies Active Description Code Type Severity Reaction Onset Reported/Identified Relationship to Patient Clinical Status Yes Penicillins [id number] Drug Aller gy Mild RASH 10/10/2019 Yes Sulfa (Sulfonamide Antibiotics) [id number] Drug Allergy Mild RASH 0 Medications There is no data. 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] 03/14/2017 AZRA ALBERTS R AP PROCESSOR Ot M17.11 UNILATERAL PRIMARY OSTEOARTHRITIS, RIGHT 03/14/2017 ARISTEO AZRA R AP PROCESSOR Ot 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 W L25.9 Acute contact dermatitis Anton Byrnequeline S. 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 W N50.89 Enlarged testicle Aristeo, Azra 06/20/2019 Orender, Sylvie S. W R35.8 Polyuria Aristeo, Azra 06/20/2019 Orender, Sylvie S. W N50.89 Enlarged testicle Aristeo, Azra 06/20/2019 Orender, Sylvie S. W R35.8 Polyuria Aristeo, Azra 07/12/2019 ARISTEO, AZRA R AP PROCESSOR Ot I86.1 SCROTAL VARICES 07/12/2019 ARISTEO, AZRA R AP PROCESSOR Ot N43.3 HYDROCELE, UNSPECIFIED 07/17/2019 ARISTEO, AZRA R AP PROCESSOR Ot I86.1 SCROTAL VARICES 07/17/2019 ARISTEO, AZRA R AP PROCESSOR Ot N43.3 HYDROCELE, UNSPECIFIED Procedures There is no data. Results Test Result Range Coronavirus SARS-CoV-2 SO 2018 - 0 07:50 Coronavirus Ab [Units/volume] in Serum Negative Negative Complete blood count (CBC) with automate d white blood cell (WBC) differential - 10/17/19 10:05 Blood leukocytes automated count (number/volume) 6.0 10*3/uL 4.3-11.0 Blood erythrocytes automated count (number/volume) 4.57 10*6/uL 4.35-5.85 Venous blood hemoglobin measurement (mass/volume) 14.6 g/dL 13.3-17.7 Blood hematocrit (volume fraction) 44 % 40-54 Automated erythrocyte mean corpuscular volume 97 [ foz_us] 80-99 Automated erythrocyte mean corpuscular h emoglobin (mass per erythrocyte) 32 pg 25-34 Automated erythrocyte mean corpuscular h emoglobin concentration measurement (mass/volume) 33 g/dL 32-36 Automated erythrocyte distribution width ratio 12. 9 % 10.0- 14.5 Automated blood platelet count (count/volume) 198 10*3/uL 130-400 Automated blood platelet mean volume measurement 9.7 [foz_us] 7.4-10.4 Automated blood neutrophils/100 leukocytes 49 % 42-75 Automated blood lymphocytes/100 leukocytes 38 % 12-44 Blood monocytes/100 leukocytes 10 % 0-12 Automated blood eosinophils/100 leukocytes 3 % 0-10 Automated blood basophils/100 leukocytes 1 % 0-10 Blood neutrophils automated count (number/volume) 2.9 10*3 1.8-7.8 Blood lymphocytes automated count (number/volume) 2.3 10*3 1.0-4.0 Blood monocytes automated count (number/volume) 0. 6 10*3 0.0-1.0 Automated eosinophil count 0.2 10*3/uL 0 .0-0.3 Automated blood basophil count (count/volume) 0.0 10*3/uL 0.0-0.1 Encounters ACCT No. Visit Date/Time Discharge Status Pt. Type Provider Facility Loc./Unit Complaint [id number] 01/23/2019 09:50:02 01/23/2019 23:59:5 9 CLS Outpatient Sylvie Byrne [id number] 10/14/2019 05:48:00 020 14:21:00 DIS Outpatient KARRI BRIDGES MD [facility] PREOP LEFT INGUINAL HERNIA, U MBILICAL HERNIA [id number] 06/20/2019 11:13:00 020 23:59:59 CLS Outpatient AZRA ALBERTS APRN [facility] RAD SWOLLEN TESTICL E [id number] 03/13/2017 11:13:00 017 23:59:59 CLS Outpatient AZRA ALBERTS AP PROCESSOR [facility] RAD M25.561 [id number] 02/27/2017 14:45:00 017 23:59:59 CLS Outpatient AZRA ALBERTS APRN [facility] RL LEG PAIN AND SWELLING [id number] 10/17/2019 11:00:00 P KARRI Camarillo MD [facility] SDC LEFT INGUINAL HERNIA, UMBILI RAUL HERNIA
--- NOTE | 2019-10-17 12:15 | Progress Note-Post Operative ---
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 Anesthesia Type get Estimated Blood Loss Estimated blood loss (mL): minimal Specimens/Packing Specimens Removed none KARRI BRIDGES MD Oct 17, 2019 12:15
[2019-10-17] MEDS ORDERED: HYDROmorphone 2 MG/ML VIAL (DILAUDID) IV ONE (12:30)
[2019-10-17] MEDS ORDERED: morphine INJ 10 MG/ML 1ML (SYR OR VIAL) IVP ONE (12:30)
[2019-10-17] MEDS ORDERED: MEPERIDINE (DEMEROL) INJ 50 MG/ML IVP ONE (12:30)
[2019-10-17] MEDS ORDERED: morphine INJ 10 MG/ML 1ML (SYR OR VIAL) ONE (12:31)
--- NOTE | 2019-10-17 14:26 | OPERATIVE REPORT ---
DATE OF SERVICE: 10/17/2019 ATTENDING PRIMARY CARE PHYSICIAN: Dr. Byrne. PREOPERATIVE DIAGNOSES: Symptomatic reducible bilateral inguinal hernia and umbilical hernia. POSTOPERATIVE DIAGNOSIS: Symptomatic reducible left inguinal hernia and umbilical hernia, both reducible. PROCEDURE: Laparoscopic left inguinal hernia and umbilical hernia repair with mesh. SURGEON: Dr. Bridges. GRAPPLE SKIDDER OPERATOR: Mukund Brown APRN. ANESTHESIA: General endotracheal. ESTIMATED BLOOD LOSS: Minimal. FINDINGS: Symptomatic reducible left inguinal hernia and umbilical hernia, both reducible. DISPOSITION: The patient tolerated the procedure well. INDICATIONS: The patient is a 69-year-old male who we had initially seen in 01/2019 for symptomatic umbilical hernia, which was reducible; however, due to his job and the nature of his job as well as inability to take adequate time off, he wanted to wait for the surgery. In the interim, he did develop pain and swelling in the left inguinal hernia and was recently found to have a symptomatic left inguinal hernia, which was reducible; however, tender to palpation. Upon examination, he also had reported some pain in the right inguinal region as well as a possible right inguinal hernia. He is otherwise doing well, tolerating regular diet and having normal bowel movements. DESCRIPTION OF PROCEDURE: The patient was brought to the operating room, laid supine on the table. After adequate IV pain and sedative medications and general endotracheal intubation, the abdomen was prepped and draped in standard surgical fashion. A 0.5% Marcaine with epinephrine was then used to anesthetize overlying skin in the supraumbilical region and a transverse skin incision made using 15-blade. A Veress needle was then inserted through the hernia defect after the abdominal wall was retracted anteriorly with a sharp towel clamp. A 0 mmHg pressure identified The abdomen was then insufflated to 15 mmHg pressure. The Veress needle was removed and a 10 mm XL trocar placed followed by a 10 mm 45-degree angle laparoscope visualizing the peritoneal cavity. A 4-quadrant abdominal exploration was performed. There was a reducible left inguinal hernia, indirect inguinal hernia. There was no right inguinal hernia component. The umbilical hernia was also identified after other ports placed. Under direct visualization, we then proceeded to place a bilateral 5 mm port after the skin and peritoneal lining were anesthetized using 0.5% Marcaine with epinephrine and transverse skin incision made using a 15 blade. The patient was then placed in Trendelenburg position. The peritoneal lining was then opened, starting laterally towards the conjoined tendon inguinal ligament using the Sonicision. We then proceeded medially until we reached Kenneth's ligament. We then proceeded with inferior dissection encompassing the entire hernia sac and identifying and sparing the cord and its surrounding contents with visualization of good hemostasis. A medium size 3DMax polypropylene mesh was then placed through the 10 mm port site and tacked to Kenneth's ligament medially and conjoined tendon laterally using absorbable tacks. The peritoneal lining was then placed over the mesh and a few absorbable tacks placed to keep this in place with visualization of good hemostasis. We then switched to a 5 mm camera and proceeded with repair of the umbilical hernia. The hernia sac was then excised using cautery. A 6.4 cm coated polypropylene mesh was then placed through the fascial defect, which was approximately 1.5 cm in size. This was then tacked to the abdominal wall using absorbable tacks concentrically around the mesh. The abdomen was desufflated and four transfascial sutures were placed in each direction using 0 Prolene interrupted sutures. Good hemostasis was observed. All skin incisions were closed using 4-0 Monocryl running subcuticular sutures. Wounds were then cleaned and covered with Dermabond. The patient tolerated the procedure well. We will start IV normal pain medication as well as a clear liquid diet. Once he is tolerating clears, has good pain control with oral pain medications, ambulating well, we will discharge him home. He will be instructed to do no heavy lifting or exertion for the next six weeks. Job ID: [id number] DocumentID: [id number] Dictated Date: 10/17/2019 12:23:37 Wastewater Manager Date: 10/17/2019 14:26:32 Dictated By: KARRI BRIDGES MD [facility]
--- NOTE | 2019-10-17 14:44 | Anesthesia-General Post-Op ---
General Patient Condition Mental Status/LOC: Same as Preop Cardiovascular: Satisfactory Nausea/Vomiting: Absent Respiratory: Satisfactory Pain: Controlled Complications: Absent Post Op Complications Complications None Follow Up Care/Instructions Patient Instructions None needed. Anesthesia/Patient Condition Patient Condition Patient is doing well, no complaints, stable vital signs, no apparent adverse anesthesia problems. No complications reported per nursing. PUJA VIEIRA CRNA Oct 17, 2019 14:44
== END 2019-10-17 14:30 | disposition home or self-care (01) ==
LOC: SDC 09:35
PROVIDERS: ATTEND Surgery
DX: K42.9 Umbilical hernia without obstruction or gangrene (principal); K40.20 Bilateral inguinal hernia, without obstruction or gangrene, not specified as recurrent; I10 Essential (primary) hypertension; M10.9 Gout, unspecified; Z79.899 Other long term (current) drug therapy; Z88.0 Allergy status to penicillin; Z88.2 Allergy status to sulfonamides
CPT/HCPCS: 49650; 49652; 85025; 87081; 94664; C1781 ×2; 36415

== ENCOUNTER → 2021-01-28 | Outpatient (CLI) | payer MEDICARE, OTHER ==
[~2021-01-28] MED LIST changes: +CATHETER FLUSH 10 ML SYR IV PRN; +HYDR-4227 PO; -LISI-552 PO; +LISI20TA26 PO; +REGADENOSON 0.4 MG/5 ML SYR (LEXISCAN) IV ONE
[2021-01-28 12:58] VITALS: BP 138/91
[2021-01-28 13:11] VITALS: BP 138/91
--- NOTE | 2021-01-28 17:17 | NUCLEAR STRESS TEST ---
TREADMILL NUCLEAR STRESS TEST Date of procedure: 01/28/2021. Primary care provider: Sylvie Byrne DO. Admitting physician: Will Lyman Jr., MD. INDICATION: Abnormal electrocardiogram. BASELINE ELECTROCARDIOGRAM: Sinus rhythm with marked sinus arrhythmia and nonspecific intraventricular conduction delay. STRESS TEST PROCEDURE: The patient was exercised for a total of 3 minutes and 30 seconds of the standard Kevin protocol achieving a maximum MET level of 5.2. The resting heart rate was 74 bpm and the peak heart rate was 142 bpm, which represents 94% of the maximum predicted heart rate. The resting blood pressure was 138/91 mmHg and the peak blood pressure was not obtained. This represents a normal heart rate and an indeterminate blood pressure response to exercise. The test was stopped due to target heart rate attained. There was no chest d iscomfort during the test. There were isolated premature ventricular complexes during the test. There were no significant stress induced electrocardiogram changes. The patient exhibited good exercise capacity for age. NUCLEAR PROCEDURE: The patient was administered 11 mCi of intravenous technetium 99m Tetrofosmin at rest for the rest images. The patient was subsequently administered 29.1 mCi of intravenous technetium 99 M Tetrofosmin at peak stress for the stress images. Following an appropriate wait after each injection, imaging was obtained. The images were subsequently processed and reformatted in the usual views. Gated imaging was obtained. The image quality was adequate but with some degree of gastrointestinal attenuation artifact. CT attenuation correction was used as a adjunct to standard imaging. Both the corrected and uncorrected images were reviewed for interpretation. NUCLEAR RESULTS: There was normal myocardial perfusion in all segments without evidence of infarction or ischemia. There was normal left ventricular chamber size with an end-diastolic volume of 75 mL and an end-systolic volume of 37 mL. There was no evidence of transient ischemic dilatation. The TID ratio was 1.07. There was normal wall motion in all segments with a calculated ejection fraction of 51%. IMPRESSION: 1. Normal heart rate and indeterminate blood pressure response to exercise. Blood pressures were not obtained during stress. 2. There was no chest discomfort or electrocardiogram changes during the test. 3. There were isolated premature ventricular complexes during the test. 4. The patient exhibited good exercise capacity for age at 3 minutes and 30 seconds of the Kevin protocol. 5. There was normal myocardial perfusion in all segments without evidence of infarction or ischemia. 6. There was normal wall motion in all segments with a calculated ejection fraction of 51%. Certain portions of this document may have been dictated utilizing voice recognition technology. Inherent to this technology, typographical and g rammatical errors may exist. As much as I am diligent to identify and correct these mistakes, some errors may remain in the document. WILL LYMAN JR, MD Jan 28, 2021 17:17
== END ==
LOC: CARD 10:22
PROVIDERS: ATTEND Internal Medicine Cardiovascular Disease
DX: R94.31 Abnormal electrocardiogram [ECG] [EKG] (principal)
CPT/HCPCS: 78452; 93017; 93306; A9502

== ENCOUNTER → 2021-10-19 | Outpatient (CLI) | payer MEDICARE, OTHER ==
[~2021-10-19] MED LIST changes: -CATHETER FLUSH 10 ML SYR IV PRN; -REGADENOSON 0.4 MG/5 ML SYR (LEXISCAN) IV ONE
--- NOTE | 2021-10-19 09:12 | Diagnostic Imaging Report ---
EXAMINATION: Magnetic resonance imaging of the right shoulder without contrast. DATE: October 19, 2021. COMPARISON: None. HISTORY: 71-year-old male, right shoulder pain. TECHNIQUE: Magnetic Resonance Imaging sequences were performed of the shoulder without contrast. FINDINGS: ROTATOR CUFF, LIGAMENTS, TENDONS, AND MUSCLES: There is supraspinatus and infraspinatus tendinopathy. There is a 25% partial thickness or less 2 mm wide tear in the region of the supraspinatus/infraspinatus junction which measures approximately 5 mm in medial to lateral extent, perhaps best demonstrated on coronal T2 fat saturation sequence image 12. The teres minor tendon is intact. The subscapularis tendon is intact. There is normal rotator cuff muscle bulk and signal. LONG HEAD OF BICEPS: The biceps labral attachment and long head of the biceps tendon are intact. The long head of the biceps tendon is normally positioned within the bicipital groove. There is fluid in the long head of biceps tendon sheath which may relate to normal glenohumeral joint communication. GLENOHUMERAL JOINT: The humeral head is well positioned relative to the glenoid. There is degenerative related blunting of the labrum. There is no identified paralabral cyst. There are broad areas of full-thickness cartilage loss of the humeral head and glenoid. There are prominent osteophytes extending off the inferior aspect of the humeral head. There is a trace glenohumeral joint effusion. There is an intra-articular body superiorly located on coronal T2 fat saturation sequence image 10 which measures 8 x 3 x 8 mm in size. There are subchondral cysts in the inferior glenoid. There is degenerative related edema adjacent to the glenohumeral joint. ACROMIOCLAVICULAR JOINT: The acromioclavicular joint is normally aligned. The coracoclavicular and coracoacromial ligaments are intact. There are mild acromioclavicular degenerative changes without large undersurface osteophyte. There is a small acromioclavicular joint effusion. BONE: There is no os acromiale. There is no Hill-Sachs deformity. There is no acute fracture, bone contusion, or evidence of osteonecrosis. BURSAE AND SOFT TISSUES: The bursae and soft tissue surrounding the shoulder are unremarkable. IMPRESSION: 1. Supraspinatus and infraspinatus tendinopathy. 2 mm wide 25% partial thickness or less interstitial tear in the region of the supraspinatus/infraspinatus junction. 2. Mild acromioclavicular degenerative changes without large undersurface osteophyte. Small acromioclavicular joint effusion. 3. Severe glenohumeral arthritis with intra-articular body measuring 8 x 3 x 8 mm in size. 4. No acute fracture, bone contusion, or evidence of osteonecrosis. Dictated by: Dictated on workstation # [id number]
== END ==
LOC: RAD 07:27
PROVIDERS: ATTEND Family Medicine
DX: M67.813 Other specified disorders of tendon, right shoulder (principal); S46.011A Strain of muscle(s) and tendon(s) of the rotator cuff of right shoulder, initial encounter; M19.011 Primary osteoarthritis, right shoulder; M25.711 Osteophyte, right shoulder
CPT/HCPCS: 73221